=== PATIENT | female | born 1950 | race Caucasian/White ===

== ENCOUNTER 2016-10-03 16:30 | Emergency (ER) | payer OTHER ==
[~2016-10-03] VITALS: Ht 167.6 cm; Wt 113.4 kg
[2016-10-03 18:00] VITALS: BP 133/90
[2016-10-03] MEDS ORDERED: HYDROmorphone HCL 2 MG/ML VL IM ONE (19:30)
[2016-10-03] MEDS ORDERED: ONDANSETRON HCL 4 MG/2 ML VIAL IM ONE (19:30)
== END 2016-10-03 20:32 | disposition home or self-care (01) ==
LOC: EDBD 16:30 → ER 16:38
DX: M54.16 Radiculopathy, lumbar region (principal); M54.30 Sciatica, unspecified side; J45.909 Unspecified asthma, uncomplicated; I10 Essential (primary) hypertension
CPT/HCPCS: 96372; 99284; J1170; J2405

== ENCOUNTER 2016-11-13 14:20 | Emergency (ER) | payer OTHER ==
[~2016-11-13] VITALS: Ht 165.1 cm; Wt 98.7 kg
[2016-11-13 15:23] LABS: Basophils # (auto) 0 uL; Basophils % (auto) 0.8 % (0.0-2.0); CONDITION Y; Eosinophils # (auto) 0 uL; Eosinophils % (auto) 0.3 % (0.0-7.0); Hematocrit 36.4 % (36.0-46.0); Hemoglobin 12.7 g/dL (12.2-16.2); Lymphocytes # (auto) 1.4 uL; Lymphocytes % (auto) 35.1 % (10.0-50.0); Mean Corpuscular Hemoglobin 30.7 pg (28.0-32.0); Mean Corpuscular Hgb Conc. 34.7 g/dL (32.0-36.0); Mean Corpuscular Volume 88.3 fL (80.0-100.0); Mean Platelet Volume 6.8 fL (7.4-10.4); Monocytes # (auto) 0.3 uL; Neutrophils # (auto) 2.2 uL; Neutrophils % (auto) 56.8 % (37.0-80.0); Platelet Count (auto) 228 10^3/uL (140-450); Red Cell Distribution Width 14.6 % (11.6-16.0)
[2016-11-13 15:42] LABS: Albumin 3.4 g/dL (3.4-5.0); Alkaline Phosphatase 134 U/L (45-117); Anion Gap 9 (5-15); Aspartate Aminotransferase 11 U/L (15-37); BUN/Creatinine Ratio 23.6; Bilirubin, Total 0.2 mg/dL (0.2-1.0); Blood Urea Nitrogen 25 mg/dL (7-18); Carbon Dioxide 30 mmol/L (21-32); Chloride 101 mmol/L (98-107); GFR African American 67 mL/min; GFR Non-African American 55 mL/min; Glucose 116 mg/dL (74-106); Sodium 140 mmol/L (136-145); Total Protein 7.3 g/dL (6.4-8.2)
[2016-11-13 19:48] VITALS: BP 119/82
[2016-11-13] MEDS ORDERED: SODIUM CHLORIDE 0.9% 1,000 ML IV ONE (20:15)
[2016-11-13] MEDS ORDERED: ONDANSETRON HCL 4 MG/2 ML VIAL IV ONE (20:15)
[2016-11-13] MEDS ORDERED: MECLIZINE HCL 25 MG TAB PO ONE (22:30)
[2016-11-13 23:01] LABS: Urine RBC None Seen /hpf (0 - 4)
[2016-11-13 23:20] LABS: Urine Bilirubin Negative (Negative); Urine Blood Negative /uL (Negative); Urine Color Yellow (Yellow); Urine Glucose Normal (Normal); Urine Ketone TRACE (Negative); Urine Nitrite Negative (Negative); Urine Squamous Epithelial Cell FEW /hpf (<5); Urine Urobilinogen Normal (Negative)
== END 2016-11-14 03:47 | disposition home or self-care (01) ==
LOC: EDBD 14:20 → ER 14:20
DX: R42 Dizziness and giddiness (principal); R51 Headache; J45.909 Unspecified asthma, uncomplicated; I10 Essential (primary) hypertension
CPT/HCPCS: 36415; 70450; 80053; 81001; 84484; 85025; 93005; 96361; 96374; 99285; J2405; J7030; J8597

== ENCOUNTER 2017-01-23 15:40 | Inpatient (IN) | payer OTHER ==
[~2017-01-23] VITALS: Ht 162.6 cm; Wt 139.6 kg
[2017-01-23] MEDS ORDERED: SODIUM CHLORIDE 0.9% 1,000 ML IV ONE (16:37)
[2017-01-23] MEDS ORDERED: ASPirin 81 mg TAB PO ONE (16:45)
[2017-01-23] MEDS ORDERED: PROMETHAZINE HCL 25 MG/ML 1ML IV ONE (16:45)
[2017-01-23 17:00] LABS: Basophils # (auto) 0 uL; Basophils % (auto) 0.7 % (0.0-2.0); Eosinophils # (auto) 0 uL; Eosinophils % (auto) 0.3 % (0.0-7.0); Hemoglobin 12.3 g/dL (12.2-16.2); Lymphocytes # (auto) 2.1 uL; Lymphocytes % (auto) 34.2 % (10.0-50.0); Mean Corpuscular Hemoglobin 30.7 pg (28.0-32.0); Mean Corpuscular Hgb Conc. 34.2 g/dL (32.0-36.0); Mean Corpuscular Volume 89.8 fL (80.0-100.0); Mean Platelet Volume 6.7 fL (6.9-10.8); Monocytes # (auto) 0.4 uL; Monocytes % (auto) 6.5 % (0.0-12.0); Neutrophils # (auto) 3.5 uL; Neutrophils % (auto) 58.3 % (37.0-80.0); Nucleated Red Blood Cells % 0.1 %; Platelet Count (auto) 205 10^3/uL (140-450); Red Cell Distribution Width 14.6 % (11.8-14.3); White Blood Cell 6.1 10^3/uL (4.4-10.8)
[2017-01-23 17:07] LABS: Albumin 3.2 g/dL (3.4-5.0); Alkaline Phosphatase 146 U/L (45-117); Anion Gap 8 (5-15); Aspartate Aminotransferase 10 U/L (15-37); BUN/Creatinine Ratio 20.2; Bilirubin, Total 0.5 mg/dL (0.2-1.0); Blood Urea Nitrogen 18 mg/dL (7-18); Calcium 8.8 mg/dL (8.5-10.1); Carbon Dioxide 28 mmol/L (21-32); Chloride 101 mmol/L (98-107); GFR African American 82 mL/min; GFR Non-African American 67 mL/min; Glucose 88 mg/dL (74-106); Potassium 3.3 mmol/L (3.5-5.1); Sodium 137 mmol/L (136-145); Total Protein 7.5 g/dL (6.4-8.2)
[2017-01-23 17:28] LABS: B-Type Natriuretic Peptide 1.63 pg/mL (0-100)
[2017-01-23] MEDS ORDERED: cefTRIAXone 1GM/50ML D5W 50 ML IV ONE (18:00)
[2017-01-23] MEDS ORDERED: POTASSIUM CHL 10% (20 MEQ/15ML) 15ml ORAL SOLN PO ONE (18:00)
[2017-01-23] MEDS: MORPHINE SULF INJ 2 MG/ML SYRINGE 1ML IV PRN ×3 (18:27→22:36)
[2017-01-23] MEDS ORDERED: NITROGLYCERIN 0.4 MG SL TAB SL PRN (20:45)
[2017-01-23] MEDS ORDERED: MECLIZINE HCL 25 MG TAB PO PRN (20:45)
[2017-01-23] MEDS: SODIUM CHLORIDE 0.9% 1,000 ML IV SCH (21:06)
[2017-01-23] MEDS: clonazePAM 0.5 MG TAB PO SCH (21:20)
[2017-01-23] MEDS: ATORVASTATIN 20 MG TAB PO SCH (21:20)
[2017-01-23] MEDS: VENLAFAXINE HCL 37.5MG TABLET PO SCH (21:20)
[2017-01-23] MEDS: traZODone HCL 50 MG TAB PO SCH (21:20)
[2017-01-23] MEDS: GABAPENTIN 300 MG CAP PO SCH (21:20)
[2017-01-24] MEDS: clonazePAM 0.5 MG TAB PO SCH ×3 (06:14→21:49)
[2017-01-24] MEDS: LEVOTHYROXINE SODIUM 50 MCG TAB PO SCH (06:14)
[2017-01-24] MEDS: GABAPENTIN 300 MG CAP PO SCH ×3 (06:14→21:49)
[2017-01-24 06:41] LABS: Basophils # (auto) 0 uL; Basophils % (auto) 0.7 % (0.0-2.0); Eosinophils # (auto) 0 uL; Eosinophils % (auto) 0.7 % (0.0-7.0); Hematocrit 34.3 % (36.0-46.0); Hemoglobin 11.7 g/dL (12.2-16.2); Lymphocytes # (auto) 1.6 uL; Lymphocytes % (auto) 33.9 % (10.0-50.0); Mean Corpuscular Hemoglobin 30.6 pg (28.0-32.0); Mean Corpuscular Volume 90.1 fL (80.0-100.0); Mean Platelet Volume 6.6 fL (6.9-10.8); Monocytes # (auto) 0.4 uL; Monocytes % (auto) 8.5 % (0.0-12.0); Neutrophils # (auto) 2.7 uL; Neutrophils % (auto) 56.2 % (37.0-80.0); Nucleated Red Blood Cells % 0.1 %; Platelet Count (auto) 197 10^3/uL (140-450); White Blood Cell 4.8 10^3/uL (4.4-10.8)
[2017-01-24] MEDS: MORPHINE SULF INJ 2 MG/ML SYRINGE 1ML IV PRN (07:13)
[2017-01-24] MEDS: cefTRIAXone 1GM/50ML D5W 50 ML IV SCH (07:39)
[2017-01-24] MEDS: SODIUM CHLORIDE 0.9% 1,000 ML IV SCH ×2 (07:39→21:51)
[2017-01-24 07:41] LABS: Albumin 2.9 g/dL (3.4-5.0); Alkaline Phosphatase 135 U/L (45-117); Anion Gap 10 (5-15); Aspartate Aminotransferase 9 U/L (15-37); BUN/Creatinine Ratio 19.1; Bilirubin, Total 0.5 mg/dL (0.2-1.0); Blood Urea Nitrogen 17 mg/dL (7-18); Calcium 8.5 mg/dL (8.5-10.1); Carbon Dioxide 26 mmol/L (21-32); Chloride 101 mmol/L (98-107); Cholesterol 234 mg/dL (< 200); GFR African American 82 mL/min; GFR Non-African American 67 mL/min; Glucose 96 mg/dL (74-106); HDL Cholesterol 90 mg/dL (40-59); LDL Cholesterol 137 mg/dL (< 100); Potassium 4.2 mmol/L (3.5-5.1); Sodium 137 mmol/L (136-145); Total Protein 6.9 g/dL (6.4-8.2); Triglycerides 53 mg/dL (< 150)
[2017-01-24 10:00] VITALS: BP 94/69
[2017-01-24] MEDS: HCTZ 25 MG TAB PO SCH (10:00)
[2017-01-24] MEDS: traZODone HCL 50 MG TAB PO SCH ×2 (10:00→21:48)
[2017-01-24] MEDS: amLODIPine BESYLATE 5 MG TAB PO SCH (10:00)
[2017-01-24] MEDS: PANTOPRAZOLE 40 MG/10 ML VIAL IV SCH (11:17)
[2017-01-24] MEDS: ENOXAPARIN SOD 40 MG/0.4 ML SYRINGE SC SCH (11:17)
[2017-01-24] MEDS: ASPirin 81 mg TAB PO SCH (11:17)
[2017-01-24] MEDS: AZITHROMYCIN 500MG/D5W 250ML 250 ML IV SCH (11:42)
[2017-01-24] MEDS: HYDROcodone-ACET 10/325MG TAB PO PRN ×2 (12:00→18:44)
[2017-01-24 13:00] VITALS: BP 145/59
[2017-01-24] MEDS: VENLAFAXINE HCL 37.5MG TABLET PO SCH ×2 (15:33→21:50)
[2017-01-24 17:01] VITALS: BP 98/64
[2017-01-24 19:40] VITALS: BP 104/69
[2017-01-24] MEDS: ATORVASTATIN 20 MG TAB PO SCH (21:49)
[2017-01-24 22:00] VITALS: BP 104/69
[2017-01-25] MEDS: MORPHINE SULF INJ 2 MG/ML SYRINGE 1ML IV PRN (00:14)
[2017-01-25 05:00] VITALS: BP 96/61
[2017-01-25] MEDS: LEVOTHYROXINE SODIUM 50 MCG TAB PO SCH (06:34)
[2017-01-25] MEDS: clonazePAM 0.5 MG TAB PO SCH ×3 (06:35→21:34)
[2017-01-25] MEDS: GABAPENTIN 300 MG CAP PO SCH ×3 (06:35→21:33)
[2017-01-25 08:00] VITALS: BP 99/64
[2017-01-25] MEDS: cefTRIAXone 1GM/50ML D5W 50 ML IV SCH (09:28)
[2017-01-25] MEDS: PANTOPRAZOLE 40 MG/10 ML VIAL IV SCH (09:28)
[2017-01-25] MEDS: ASPirin 81 mg TAB PO SCH (09:29)
[2017-01-25] MEDS: VENLAFAXINE HCL 37.5MG TABLET PO SCH ×2 (09:29→21:32)
[2017-01-25] MEDS: traZODone HCL 50 MG TAB PO SCH ×2 (09:29→21:33)
[2017-01-25] MEDS: HCTZ 25 MG TAB PO SCH (09:29)
[2017-01-25] MEDS: ENOXAPARIN SOD 40 MG/0.4 ML SYRINGE SC SCH (09:29)
[2017-01-25] MEDS: AZITHROMYCIN 500MG/D5W 250ML 250 ML IV SCH (09:30)
[2017-01-25] MEDS: amLODIPine BESYLATE 5 MG TAB PO SCH (09:30)
[2017-01-25] MEDS: SODIUM CHLORIDE 0.9% 1,000 ML IV SCH (10:11)
[2017-01-25] MEDS ORDERED: MECL-87 PO (11:27)
[2017-01-25] MEDS ORDERED: AMLO5TAB2 PO (11:27)
[2017-01-25] MEDS ORDERED: ARIP2TAB PO (11:27)
[2017-01-25] MEDS ORDERED: GABA-497 PO (11:27)
[2017-01-25] MEDS ORDERED: [UNRECOGNIZED DRUG - CODE] PO (11:27)
[2017-01-25] MEDS ORDERED: CLON05T PO (11:27)
[2017-01-25] MEDS ORDERED: HYDR25TA4 PO (11:27)
[2017-01-25] MEDS ORDERED: LACT10SO3 PO (11:27)
[2017-01-25] MEDS ORDERED: LEVO50TA7 PO (11:27)
[2017-01-25] MEDS ORDERED: VENL75TA PO (11:27)
[2017-01-25 13:00] VITALS: BP 123/54
[2017-01-25] MEDS: HYDROcodone-ACET 10/325MG TAB PO PRN (15:42)
[2017-01-25 16:09] LABS: Allen Test Yes; Base Excess 2.6 mmol/L (-2.0-2.0); Blood 02Sat 85.3 % (96-100); Blood COHb 0.7 % (0.5-1.5); Blood MetHb 0.3 % (0.0-1.5); HCO3 28.5 mmol/L (22-26.0); HHb 14.6 % (0.0-5.0); MODE ROOM AIR; O2Hb 84.4 % (94.0-97.0); PCO2 49.2 mmHg (35.0-45.0); PCO2(T) 49.2 mmHg (35.0-45.0); PO2 54.3 mmHg (80.0-100.0); PO2(T) 54.3 mmHg (80.0-100.0); Room 0296T; Sample Type Arterial; pH 7.381 (7.350-7.450)
[2017-01-25 17:00] VITALS: BP 120/55
[2017-01-25 21:25] VITALS: BP 125/57
[2017-01-25] MEDS: ATORVASTATIN 20 MG TAB PO SCH (21:32)
[2017-01-26] MEDS: SODIUM CHLORIDE 0.9% 1,000 ML IV SCH ×3 (00:51→23:41)
[2017-01-26 05:51] VITALS: BP 118/74
[2017-01-26] MEDS: GABAPENTIN 300 MG CAP PO SCH ×3 (06:03→22:09)
[2017-01-26] MEDS: LEVOTHYROXINE SODIUM 50 MCG TAB PO SCH (06:04)
[2017-01-26] MEDS: clonazePAM 0.5 MG TAB PO SCH ×3 (06:04→22:09)
[2017-01-26 07:35] VITALS: BP 102/63
[2017-01-26] MEDS: HYDROcodone-ACET 10/325MG TAB PO PRN ×3 (07:36→18:39)
[2017-01-26 08:00] VITALS: BP 102/63
[2017-01-26] MEDS: cefTRIAXone 1GM/50ML D5W 50 ML IV SCH (08:51)
[2017-01-26] MEDS: amLODIPine BESYLATE 5 MG TAB PO SCH (10:00)
[2017-01-26] MEDS: traZODone HCL 50 MG TAB PO SCH ×2 (10:13→22:08)
[2017-01-26] MEDS: ENOXAPARIN SOD 40 MG/0.4 ML SYRINGE SC SCH (10:13)
[2017-01-26] MEDS: PANTOPRAZOLE 40 MG/10 ML VIAL IV SCH (10:13)
[2017-01-26] MEDS: AZITHROMYCIN 500MG/D5W 250ML 250 ML IV SCH (10:13)
[2017-01-26] MEDS: ASPirin 81 mg TAB PO SCH (10:13)
[2017-01-26] MEDS: HCTZ 25 MG TAB PO SCH (10:14)
[2017-01-26] MEDS: VENLAFAXINE HCL 37.5MG TABLET PO SCH ×2 (10:14→22:09)
[2017-01-26 12:30] VITALS: BP 98/62
[2017-01-26] MEDS ORDERED: LACTULOSE 20Gm/30ML SOLN PO ONE (15:30)
[2017-01-26] MEDS ORDERED: LACTULOSE 20Gm/30ML SOLN PO PRN (15:30)
[2017-01-26 16:56] VITALS: BP 109/71
[2017-01-26] MEDS: ATORVASTATIN 20 MG TAB PO SCH (22:09)
[2017-01-26 22:16] VITALS: BP 100/65
[2017-01-27 04:56] VITALS: BP 125/72
[2017-01-27] MEDS: GABAPENTIN 300 MG CAP PO SCH ×2 (06:38→13:25)
[2017-01-27] MEDS: clonazePAM 0.5 MG TAB PO SCH ×2 (06:38→13:24)
[2017-01-27] MEDS: LEVOTHYROXINE SODIUM 50 MCG TAB PO SCH (06:38)
[2017-01-27] MEDS: HYDROcodone-ACET 10/325MG TAB PO PRN ×2 (07:41→13:24)
[2017-01-27 08:00] VITALS: BP 121/79
[2017-01-27 08:13] VITALS: BP 121/79
[2017-01-27] MEDS: cefTRIAXone 1GM/50ML D5W 50 ML IV SCH (09:00)
[2017-01-27 09:25] LABS: Base Excess 1.9 mmol/L (-2.0-2.0); Blood 02Sat 86.2 % (96-100); Blood COHb 0.3 % (0.5-1.5); Blood MetHb 0.5 % (0.0-1.5); HCO3 28.1 mmol/L (22-26.0); HHb 13.7 % (0.0-5.0); MODE ROOM AIR; O2Hb 85.5 % (94.0-97.0); PCO2 51.9 mmHg (35.0-45.0); PCO2(T) 51.9 mmHg (35.0-45.0); PO2 56.9 mmHg (80.0-100.0); PO2(T) 56.9 mmHg (80.0-100.0); Room 0296T; Sample Type Arterial; pH 7.352 (7.350-7.450)
[2017-01-27] MEDS: ENOXAPARIN SOD 40 MG/0.4 ML SYRINGE SC SCH (10:05)
[2017-01-27] MEDS: ASPirin 81 mg TAB PO SCH (10:05)
[2017-01-27] MEDS: PANTOPRAZOLE 40 MG/10 ML VIAL IV SCH (10:05)
[2017-01-27] MEDS: AZITHROMYCIN 500MG/D5W 250ML 250 ML IV SCH (10:05)
[2017-01-27] MEDS: traZODone HCL 50 MG TAB PO SCH (10:05)
[2017-01-27] MEDS: amLODIPine BESYLATE 5 MG TAB PO SCH (10:06)
[2017-01-27] MEDS: VENLAFAXINE HCL 37.5MG TABLET PO SCH (10:06)
[2017-01-27] MEDS: HCTZ 25 MG TAB PO SCH (10:06)
[2017-01-27 12:12] VITALS: BP 109/66
== END 2017-01-27 15:50 | disposition home or self-care (01) | DRG 189 ==
LOC: ER 15:40 → EDUNIT# 15:40 → EDBD 15:40 → TELE 15:41 → TELE-WESTW 01-24 08:41
PROVIDERS: ADMIT Family Medicine; ATTEND Internal Medicine Pulmonary Disease
DX: J96.00 Acute respiratory failure, unspecified whether with hypoxia or hypercapnia (principal); J18.1 Lobar pneumonia, unspecified organism; E44.0 Moderate protein-calorie malnutrition; J44.0 Chronic obstructive pulmonary disease with (acute) lower respiratory infection; Z68.43 Body mass index [BMI] 50.0-59.9, adult; R07.89 Other chest pain; I11.9 Hypertensive heart disease without heart failure; E87.6 Hypokalemia; E66.9 Obesity, unspecified; F41.9 Anxiety disorder, unspecified; Z79.899 Other long term (current) drug therapy
CPT/HCPCS: 36415; 36600; 71010; 71020; 80053; 80061; 82805; 83735; 83880; 84443; 84484; 85025; 85379; 87040; 93005; 94761; 96361; 96365; 96375; C9113; J0696

== ENCOUNTER 2018-06-15 08:50 | Emergency (ER) | payer OTHER ==
[~2018-06-15] VITALS: Ht 165.1 cm; Wt 117.9 kg
[~2018-06-15 08:50] MED LIST: AMLO5TAB13 PO; ARIP2TAB PO; CLON05T PO; GABA300C10 PO; HYDR25TA4 PO; LACT10SO3 PO; LEVO50TA7 PO; MECL-87 PO; VENL75TA PO; [UNRECOGNIZED DRUG - CODE] PO
[2018-06-15] MEDS ORDERED: AMLO10TA12 PO (09:00)
[2018-06-15] MEDS ORDERED: ATOR40TA52 PO (09:01)
[2018-06-15] MEDS ORDERED: HYDR-4683 PO (09:01)
[2018-06-15 11:18] LABS: Basophils # (auto) 0 uL; Basophils % (auto) 0.9 % (0.0-2.0); Eosinophils # (auto) 0 uL; Eosinophils % (auto) 0.6 % (0.0-7.0); Hematocrit 40.5 % (36.0-46.0); Hemoglobin 13.4 g/dL (12.2-16.2); Lymphocytes # (auto) 1.4 uL; Lymphocytes % (auto) 25.3 % (10.0-50.0); Mean Corpuscular Hemoglobin 30.3 pg (28.0-32.0); Mean Corpuscular Hgb Conc. 33.1 g/dL (32.0-36.0); Mean Corpuscular Volume 91.7 fL (80.0-100.0); Monocytes # (auto) 0.4 uL; Monocytes % (auto) 7.4 % (0.0-12.0); Neutrophils # (auto) 3.5 uL; Neutrophils % (auto) 65.8 % (37.0-80.0); Nucleated Red Blood Cells % 0.1 %; Platelet Count (auto) 191 10^3/uL (140-450); Red Blood Cells 4.42 10^6/uL (4.0-5.20); Red Cell Distribution Width 14.5 % (11.8-14.3); White Blood Cell 5.4 10^3/uL (4.4-10.8)
[2018-06-15 11:51] LABS: Alanine Aminotransferase 20 U/L (13-56); Albumin 3.6 g/dL (3.4-5.0); Anion Gap 5 (5-15); Aspartate Aminotransferase 12 U/L (15-37); BUN/Creatinine Ratio 14.6; Blood Urea Nitrogen 14 mg/dL (7-18); Calcium 9.4 mg/dL (8.5-10.1); Carbon Dioxide 29 mmol/L (21-32); Chloride 107 mmol/L (98-107); GFR African American 75 mL/min; GFR Non-African American 62 mL/min; Glucose 97 mg/dL (74-106); Potassium 4.2 mmol/L (3.5-5.1); Sodium 141 mmol/L (136-145)
[2018-06-15 11:55] LABS: Alkaline Phosphatase 126 U/L (45-117); Bilirubin, Total 0.3 mg/dL (0.2-1.0); Total Protein 7.5 g/dL (6.4-8.2)
[2018-06-15] MEDS ORDERED: clonazePAM 0.5 MG TAB PO ONE (15:00)
[2018-06-15 15:30] VITALS: BP 147/100
== END 2018-06-15 16:10 | disposition home or self-care (01) ==
LOC: ER 08:50
DX: F13.239 Sedative, hypnotic or anxiolytic dependence with withdrawal, unspecified (principal); J45.909 Unspecified asthma, uncomplicated; I10 Essential (primary) hypertension; F41.9 Anxiety disorder, unspecified; E78.5 Hyperlipidemia, unspecified; Z90.710 Acquired absence of both cervix and uterus
CPT/HCPCS: 36415; 71046; 80053; 84484; 85025; 93005

== ENCOUNTER 2018-11-11 12:04 | Emergency (ER) | payer OTHER ==
[~2018-11-11] VITALS: Ht 162.6 cm; Wt 104.3 kg
[~2018-11-11 12:04] MED LIST changes: +AMLO10TA13 PO; -AMLO5TAB13 PO; -ARIP2TAB PO; +ATOR40TA52 PO; +CARB300C9 PO; +CLON0.5T11 PO; -CLON05T PO; -GABA300C10 PO; +HYDR-4833 PO; -HYDR25TA4 PO; -[UNRECOGNIZED DRUG - CODE] PO
[2018-11-11] MEDS ORDERED: ALBUTEROL SULF 2.5 MG/0.5ML(0.5%) NEB SOLN HHN ONE (12:30)
[2018-11-11] MEDS ORDERED: methylPREDNISolone SOD SUCC 125 MG/2 ML VL IV ONE (12:30)
[2018-11-11] MEDS ORDERED: IPRATROPIUM BROM 0.5 MG/2.5ML INH SOL HHN ONE (12:30)
[2018-11-11 13:08] LABS: Basophils # (auto) 0 uL; Basophils % (auto) 1.1 % (0.0-2.0); Eosinophils # (auto) 0.1 uL; Eosinophils % (auto) 1.4 % (0.0-7.0); Hemoglobin 13.1 g/dL (12.2-16.2); Lymphocytes # (auto) 1.4 uL; Lymphocytes % (auto) 34.6 % (10.0-50.0); Mean Corpuscular Hgb Conc. 33.6 g/dL (32.0-36.0); Mean Corpuscular Volume 89.3 fL (80.0-100.0); Monocytes # (auto) 0.3 uL; Monocytes % (auto) 6.1 % (0.0-12.0); Neutrophils # (auto) 2.3 uL; Neutrophils % (auto) 56.8 % (37.0-80.0); Nucleated Red Blood Cells % 0.1 %; Platelet Count (auto) 175 10^3/uL (140-450); Red Blood Cells 4.37 10^6/uL (4.0-5.20); Red Cell Distribution Width 14.7 % (11.8-14.3); White Blood Cell 4.1 10^3/uL (4.4-10.8)
[2018-11-11 13:45] LABS: Alanine Aminotransferase 19 U/L (13-56); Albumin 3.7 g/dL (3.4-5.0); Anion Gap 9 (5-15); Aspartate Aminotransferase 14 U/L (15-37); BUN/Creatinine Ratio 18.8; Blood Urea Nitrogen 18 mg/dL (7-18); Calcium 8.9 mg/dL (8.5-10.1); Carbon Dioxide 25 mmol/L (21-32); Chloride 111 mmol/L (98-107); GFR African American 75 mL/min; GFR Non-African American 62 mL/min; Glucose 96 mg/dL (74-106); Potassium 3.6 mmol/L (3.5-5.1); Sodium 145 mmol/L (136-145)
[2018-11-11 13:49] LABS: Alkaline Phosphatase 118 U/L (45-117); Bilirubin, Total 0.4 mg/dL (0.2-1.0); Total Protein 7.6 g/dL (6.4-8.2)
[2018-11-11] MEDS ORDERED: methylPREDNISolone SOD SUCC 125 MG/2 ML VL IM ONE (15:45)
[2018-11-11 16:12] VITALS: BP 110/69
== END 2018-11-11 16:15 | disposition home or self-care (01) ==
LOC: EDBD 12:04 → ER 12:04 → EDUNIT# 12:04 → ER 16:15
DX: J20.9 Acute bronchitis, unspecified (principal); J45.909 Unspecified asthma, uncomplicated; E78.00 Pure hypercholesterolemia, unspecified; I10 Essential (primary) hypertension; Z90.710 Acquired absence of both cervix and uterus; Z79.899 Other long term (current) drug therapy
CPT/HCPCS: 36415; 71046; 80053; 83605; 83880; 84484; 85025; 87040; 93005; 94644; 94761; 96372; 99285; J2930; J7611; J7644

== ENCOUNTER 2021-07-29 00:03 | Emergency (ER) | payer OTHER ==
[~2021-07-29] VITALS: Ht 165.1 cm; Wt 108.4 kg
[~2021-07-29 00:03] MED LIST changes: +AMLO-496 PO; -AMLO10TA13 PO; -CLON0.5T11 PO; +CLON0.5T3 PO; -MECL-87 PO; +MECL25TA18 PO; +VENL1TAB99 PO; -VENL75TA PO
[2021-07-29 03:51] VITALS: BP 158/93
[2021-07-29 04:45] LABS: Urine Bacteria FEW /hpf (None Seen); Urine Blood 2+ /uL (Negative); Urine Specific Gravity 1.009 (1.001-1.035); Urine WBC 2 /hpf (0 - 5)
== END 2021-07-29 07:44 | disposition home or self-care (01) ==
LOC: ER 00:05
DX: N99.89 Other postprocedural complications and disorders of genitourinary system (principal); T83.098A Other mechanical complication of other urinary catheter, initial encounter; R30.0 Dysuria; R31.9 Hematuria, unspecified; I10 Essential (primary) hypertension; E78.5 Hyperlipidemia, unspecified; J45.909 Unspecified asthma, uncomplicated; Z79.899 Other long term (current) drug therapy
CPT/HCPCS: 81001; 87086; 87088; 87186

== ENCOUNTER 2022-08-02 20:09 | Inpatient (IN) | payer OTHER ==
[~2022-08-02] VITALS: Ht 162.6 cm; Wt 102.8 kg
[2022-08-02 21:14] LABS: Basophils # (auto) 0.1 10 ^3/uL (0-0.2); Eosinophils # (auto) 0 10 ^3/uL (0-0.8); Eosinophils % (auto) 0.7 % (0.0-7.0); Hematocrit 26.2 % (36.0-46.0); Hemoglobin 8.8 g/dL (12.2-16.2); Lymphocytes # (auto) 1.2 10 ^3/uL (0.4-5.4); Lymphocytes % (auto) 24.1 % (10.0-50.0); Mean Corpuscular Hgb Conc. 33.8 g/dL (32.0-36.0); Mean Corpuscular Volume 85.8 fL (80.0-100.0); Monocytes # (auto) 0.4 10 ^3/uL (0-1.3); Neutrophils # (auto) 3.4 10 ^3/uL (1.6-8.6); Neutrophils % (auto) 67.2 % (37.0-80.0); Nucleated Red Blood Cells % 0.2 %; Red Blood Cells 3.05 10^6/uL (4.0-5.20); Red Cell Distribution Width 15.6 % (11.8-14.3); White Blood Cell 5.1 10^3/uL (4.4-10.8)
[2022-08-02 21:33] LABS: Albumin 3.9 g/dL (3.4-5.0); Calcium 9.8 mg/dL (8.5-10.1); Potassium 3.9 mmol/L (3.5-5.1)
[2022-08-02 21:37] LABS: BUN/Creatinine Ratio 8.8 (10.0-20.0); Bilirubin, Total 0.4 mg/dL (0.2-1.0); Total Protein 7.6 g/dL (6.4-8.2)
[2022-08-03 09:52] LABS: Urine Bacteria NONE SEEN /hpf (None Seen); Urine Blood Negative /uL (Negative); Urine Hyaline Cast FEW /lpf (0 - 2); Urine Specific Gravity 1.014 (1.001-1.035); Urine WBC 2 /hpf (0 - 5)
[2022-08-03] MEDS ORDERED: ONDANSETRON HCL 4 MG/2 ML VIAL IV PRN (11:00)
[2022-08-03] MEDS ORDERED: POTASSIUM EFFERVESENT TAB 25 MEQ PO ONE (11:00)
[2022-08-03] MEDS ORDERED: DOCUSATE SOD 100 MG CAP PO PRN ×2 (11:00→11:15)
[2022-08-03] MEDS ORDERED: SODIUM CHLORIDE 0.9% 1,000 ML IV SCH (11:00)
[2022-08-03] MEDS ORDERED: MORPHINE SULFATE INJ 2 MG/ml SYRG IV PRN (11:00)
[2022-08-03 13:48] LABS: Creatinine, Urine 165 mg/dL (30.0-125.0); Sodium Urine 55 mmol/L (40-220)
[2022-08-03] MEDS ORDERED: clonazePAM 0.5 MG TAB PO SCH (14:00)
[2022-08-03] MEDS: SODIUM CHLORIDE 0.9% 1,000 ML IV SCH (18:02)
[2022-08-03] MEDS ORDERED: MONT-8 PO (20:14)
[2022-08-03] MEDS ORDERED: OMEP-411 PO (20:14)
[2022-08-03] MEDS ORDERED: FURO40TA4 PO (20:14)
[2022-08-03] MEDS: ONDANSETRON HCL 4 MG/2 ML VIAL IV PRN (20:44)
[2022-08-03] MEDS: ATORVASTATIN 20 MG TAB PO SCH (21:24)
[2022-08-03 22:00] VITALS: BP 142/83
[2022-08-04] MEDS: SODIUM CHLORIDE 0.9% 1,000 ML IV SCH ×2 (03:55→20:35)
[2022-08-04 05:00] VITALS: BP 140/81
[2022-08-04] MEDS: LEVOTHYROXINE SODIUM 50 MCG TAB PO SCH (05:28)
[2022-08-04] MEDS: clonazePAM 0.5 MG TAB PO SCH ×2 (05:30→05:50)
[2022-08-04 06:16] LABS: Potassium 4.1 mmol/L (3.5-5.1)
[2022-08-04 06:19] LABS: Basophils # (auto) 0 10 ^3/uL (0-0.2); Eosinophils # (auto) 0.1 10 ^3/uL (0-0.8); Mean Corpuscular Volume 89.5 fL (80.0-100.0); Monocytes # (auto) 0.4 10 ^3/uL (0-1.3); White Blood Cell 4.4 10^3/uL (4.4-10.8)
[2022-08-04 06:21] LABS: Basophils % (auto) 0.3 % (0.0-2.0); Eosinophils % (auto) 2.5 % (0.0-7.0); Hematocrit 23.8 % (36.0-46.0); Hemoglobin 7.9 g/dL (12.2-16.2); Lymphocytes # (auto) 1.2 10 ^3/uL (0.4-5.4); Mean Corpuscular Hemoglobin 29.8 pg (28.0-32.0); Mean Corpuscular Hgb Conc. 33.3 g/dL (32.0-36.0); Monocytes % (auto) 8.7 % (0.0-12.0); Neutrophils # (auto) 2.7 10 ^3/uL (1.6-8.6); Neutrophils % (auto) 60.5 % (37.0-80.0); Nucleated Red Blood Cells % 0.2 %; Red Blood Cells 2.66 10^6/uL (4.0-5.20); Red Cell Distribution Width 15.8 % (11.8-14.3)
[2022-08-04 06:26] LABS: Albumin 3.1 g/dL (3.4-5.0); BUN/Creatinine Ratio 8.9 (10.0-20.0); Bilirubin, Total 0.3 mg/dL (0.2-1.0); Calcium 8.8 mg/dL (8.5-10.1)
[2022-08-04 09:00] VITALS: BP 133/66
[2022-08-04] MEDS ORDERED: cefTRIAXone 1GM/50ML D5W 50 ML IV SCH (09:00)
[2022-08-04] MEDS: PANTOPRAZOLE 40 MG/10 ML VIAL INJ IV SCH (09:11)
[2022-08-04] MEDS: ASPirin 81 mg TAB PO SCH (09:11)
[2022-08-04] MEDS: amLODIPine BESYLATE 5 MG TAB PO SCH (09:12)
[2022-08-04] MEDS ORDERED: ENOXAPARIN SOD 40 MG/0.4 ML SYRINGE SC SCH (10:00)
[2022-08-04 13:00] VITALS: BP 135/70
[2022-08-04 17:19] VITALS: BP 123/66
[2022-08-04 22:00] VITALS: BP 138/80
[2022-08-04] MEDS: ATORVASTATIN 20 MG TAB PO SCH (22:10)
[2022-08-05] MEDS: MORPHINE SULFATE INJ 2 MG/ml SYRG IV PRN ×5 (01:03→21:41)
[2022-08-05 05:00] VITALS: BP 149/80
[2022-08-05 05:40] LABS: Basophils # (auto) 0 10 ^3/uL (0-0.2); Hemoglobin 7.4 g/dL (12.2-16.2); Monocytes # (auto) 0.4 10 ^3/uL (0-1.3); Nucleated Red Blood Cells % 0.1 %; White Blood Cell 4.3 10^3/uL (4.4-10.8)
[2022-08-05 05:43] LABS: Basophils % (auto) 0.5 % (0.0-2.0); Eosinophils # (auto) 0.1 10 ^3/uL (0-0.8); Hematocrit 21.2 % (36.0-46.0); Lymphocytes # (auto) 1.4 10 ^3/uL (0.4-5.4); Lymphocytes % (auto) 33.2 % (10.0-50.0); Mean Corpuscular Hemoglobin 30.1 pg (28.0-32.0); Mean Corpuscular Hgb Conc. 34.6 g/dL (32.0-36.0); Mean Corpuscular Volume 86.8 fL (80.0-100.0); Monocytes % (auto) 10.1 % (0.0-12.0); Neutrophils # (auto) 2.3 10 ^3/uL (1.6-8.6); Neutrophils % (auto) 53.2 % (37.0-80.0); Red Blood Cells 2.45 10^6/uL (4.0-5.20); Red Cell Distribution Width 15.5 % (11.8-14.3)
[2022-08-05] MEDS: LEVOTHYROXINE SODIUM 50 MCG TAB PO SCH (06:36)
[2022-08-05 06:37] LABS: Albumin 3.1 g/dL (3.4-5.0); BUN/Creatinine Ratio 7.7 (10.0-20.0); Calcium 8.9 mg/dL (8.5-10.1)
[2022-08-05] MEDS: clonazePAM 0.5 MG TAB PO SCH (06:37)
[2022-08-05 06:53] LABS: Bilirubin, Total 0.3 mg/dL (0.2-1.0); Total Protein 5.9 g/dL (6.4-8.2)
[2022-08-05 09:00] VITALS: BP 144/81
[2022-08-05] MEDS: PANTOPRAZOLE 40 MG/10 ML VIAL INJ IV SCH (10:04)
[2022-08-05] MEDS: ASPirin 81 mg TAB PO SCH (10:04)
[2022-08-05] MEDS: ENOXAPARIN SOD 30 MG/0.3 ML SYRINGE SC SCH (10:05)
[2022-08-05] MEDS: amLODIPine BESYLATE 5 MG TAB PO SCH (10:05)
[2022-08-05] MEDS: SODIUM CHLORIDE 0.9% 1,000 ML IV SCH (12:57)
[2022-08-05 13:14] VITALS: BP 142/77
[2022-08-05 17:00] VITALS: BP 132/81
[2022-08-05] MEDS: ATORVASTATIN 20 MG TAB PO SCH (21:40)
[2022-08-05 22:00] VITALS: BP 121/76
[2022-08-06 05:00] VITALS: BP 129/75
[2022-08-06] MEDS: MORPHINE SULFATE INJ 2 MG/ml SYRG IV PRN ×2 (05:42→15:12)
[2022-08-06] MEDS: SODIUM CHLORIDE 0.9% 1,000 ML IV SCH ×2 (05:42→22:38)
[2022-08-06] MEDS: LEVOTHYROXINE SODIUM 50 MCG TAB PO SCH (06:40)
[2022-08-06] MEDS: clonazePAM 0.5 MG TAB PO SCH (06:41)
[2022-08-06 06:45] LABS: Eosinophils # (auto) 0.1 10 ^3/uL (0-0.8); Hemoglobin 7.4 g/dL (12.2-16.2); Lymphocytes # (auto) 1.1 10 ^3/uL (0.4-5.4); Mean Corpuscular Hemoglobin 29.6 pg (28.0-32.0); Monocytes # (auto) 0.4 10 ^3/uL (0-1.3); Neutrophils # (auto) 2.4 10 ^3/uL (1.6-8.6); Red Blood Cells 2.51 10^6/uL (4.0-5.20)
[2022-08-06 06:48] LABS: Basophils # (auto) 0 10 ^3/uL (0-0.2); Basophils % (auto) 0.7 % (0.0-2.0); Eosinophils % (auto) 3.3 % (0.0-7.0); Hematocrit 21.8 % (36.0-46.0); Lymphocytes % (auto) 26.2 % (10.0-50.0); Monocytes % (auto) 10.3 % (0.0-12.0); Neutrophils % (auto) 59.5 % (37.0-80.0); Nucleated Red Blood Cells % 0.1 %; Potassium 4.3 mmol/L (3.5-5.1); Red Cell Distribution Width 15.7 % (11.8-14.3); White Blood Cell 4.1 10^3/uL (4.4-10.8)
[2022-08-06 07:01] LABS: BUN/Creatinine Ratio 6.1 (10.0-20.0); Bilirubin, Total 0.4 mg/dL (0.2-1.0); Calcium 9.2 mg/dL (8.5-10.1)
[2022-08-06 09:00] VITALS: BP_SYST 101; BP_SYST 128; BP_DIAS 57; BP_DIAS 77
[2022-08-06] MEDS: PANTOPRAZOLE 40 MG/10 ML VIAL INJ IV SCH (09:43)
[2022-08-06] MEDS: ASPirin 81 mg TAB PO SCH (09:43)
[2022-08-06] MEDS: ENOXAPARIN SOD 30 MG/0.3 ML SYRINGE SC SCH (09:43)
[2022-08-06] MEDS: amLODIPine BESYLATE 5 MG TAB PO SCH (09:44)
[2022-08-06 13:00] VITALS: BP 132/66
[2022-08-06 17:00] VITALS: BP 143/71
[2022-08-06 17:19] LABS: % Iron Saturation 25.6 % (15-50)
[2022-08-06] MEDS ORDERED: ACETAMINOPHEN 325 MG TAB PO PRN (18:45)
[2022-08-06] MEDS: ATORVASTATIN 20 MG TAB PO SCH (20:44)
[2022-08-06] MEDS: HYDROcodone-ACET 5/325MG TAB PO PRN (20:48)
[2022-08-06 21:30] VITALS: BP 136/83
[2022-08-07 05:00] VITALS: BP 120/69
[2022-08-07 06:05] LABS: Eosinophils # (auto) 0.1 10 ^3/uL (0-0.8); Hemoglobin 7.2 g/dL (12.2-16.2); Lymphocytes # (auto) 1.2 10 ^3/uL (0.4-5.4); Potassium 4.2 mmol/L (3.5-5.1)
[2022-08-07 06:09] LABS: Basophils # (auto) 0 10 ^3/uL (0-0.2); Basophils % (auto) 0.5 % (0.0-2.0); Eosinophils % (auto) 2.7 % (0.0-7.0); Hematocrit 20.6 % (36.0-46.0); Lymphocytes % (auto) 29.6 % (10.0-50.0); Mean Corpuscular Hemoglobin 30.1 pg (28.0-32.0); Mean Corpuscular Hgb Conc. 34.9 g/dL (32.0-36.0); Mean Corpuscular Volume 86.2 fL (80.0-100.0); Monocytes # (auto) 0.4 10 ^3/uL (0-1.3); Monocytes % (auto) 10.1 % (0.0-12.0); Neutrophils # (auto) 2.4 10 ^3/uL (1.6-8.6); Neutrophils % (auto) 57.1 % (37.0-80.0); Nucleated Red Blood Cells % 0.1 %; Red Blood Cells 2.39 10^6/uL (4.0-5.20); White Blood Cell 4.2 10^3/uL (4.4-10.8)
[2022-08-07 06:10] LABS: BUN/Creatinine Ratio 7.3 (10.0-20.0)
[2022-08-07] MEDS: LEVOTHYROXINE SODIUM 50 MCG TAB PO SCH (06:23)
[2022-08-07] MEDS: HYDROcodone-ACET 5/325MG TAB PO PRN ×3 (06:23→20:19)
[2022-08-07] MEDS: clonazePAM 0.5 MG TAB PO SCH (06:24)
[2022-08-07 08:20] VITALS: BP 124/75
[2022-08-07] MEDS: PANTOPRAZOLE 40 MG/10 ML VIAL INJ IV SCH (09:30)
[2022-08-07] MEDS: ASPirin 81 mg TAB PO SCH (09:31)
[2022-08-07] MEDS: amLODIPine BESYLATE 5 MG TAB PO SCH (09:31)
[2022-08-07] MEDS: ENOXAPARIN SOD 30 MG/0.3 ML SYRINGE SC SCH (09:31)
[2022-08-07 13:13] VITALS: BP 126/63
[2022-08-07] MEDS: EPOETIN ALFA-EPBX 10,000 UNIT/1ML VIAL SC SCH (13:24)
[2022-08-07 16:56] VITALS: BP 141/79
[2022-08-07] MEDS: ATORVASTATIN 20 MG TAB PO SCH (20:19)
[2022-08-07] MEDS: ONDANSETRON HCL 4 MG/2 ML VIAL IV PRN (20:20)
[2022-08-07 22:00] VITALS: BP 114/73
[2022-08-08 05:12] VITALS: BP 131/75
[2022-08-08 05:57] LABS: Basophils # (auto) 0 10 ^3/uL (0-0.2); Basophils % (auto) 0.3 % (0.0-2.0); Eosinophils # (auto) 0.1 10 ^3/uL (0-0.8); Eosinophils % (auto) 2.3 % (0.0-7.0); Hematocrit 21.3 % (36.0-46.0); Hemoglobin 7.3 g/dL (12.2-16.2); Lymphocytes # (auto) 1.2 10 ^3/uL (0.4-5.4); Lymphocytes % (auto) 30.1 % (10.0-50.0); Mean Corpuscular Hemoglobin 29.5 pg (28.0-32.0); Mean Corpuscular Hgb Conc. 34.1 g/dL (32.0-36.0); Mean Corpuscular Volume 86.5 fL (80.0-100.0); Monocytes # (auto) 0.4 10 ^3/uL (0-1.3); Monocytes % (auto) 10.9 % (0.0-12.0); Neutrophils # (auto) 2.2 10 ^3/uL (1.6-8.6); Neutrophils % (auto) 56.4 % (37.0-80.0); Nucleated Red Blood Cells % 0.1 %; Red Blood Cells 2.46 10^6/uL (4.0-5.20); Red Cell Distribution Width 15.6 % (11.8-14.3); White Blood Cell 3.9 10^3/uL (4.4-10.8)
[2022-08-08 06:13] LABS: BUN/Creatinine Ratio 9.5 (10.0-20.0); Calcium 9.2 mg/dL (8.5-10.1); Potassium 4.1 mmol/L (3.5-5.1)
[2022-08-08] MEDS: clonazePAM 0.5 MG TAB PO SCH (06:26)
[2022-08-08] MEDS: ONDANSETRON HCL 4 MG/2 ML VIAL IV PRN ×3 (06:26→15:32)
[2022-08-08] MEDS: LEVOTHYROXINE SODIUM 50 MCG TAB PO SCH (06:26)
[2022-08-08] MEDS: ASPirin 81 mg TAB PO SCH (08:53)
[2022-08-08] MEDS: PANTOPRAZOLE 40 MG/10 ML VIAL INJ IV SCH (08:53)
[2022-08-08] MEDS: DOCUSATE SOD 100 MG CAP PO SCH ×2 (08:54→20:11)
[2022-08-08] MEDS: amLODIPine BESYLATE 5 MG TAB PO SCH (08:54)
[2022-08-08] MEDS: ENOXAPARIN SOD 30 MG/0.3 ML SYRINGE SC SCH (08:54)
[2022-08-08 09:00] VITALS: BP 96/54
[2022-08-08] MEDS: HYDROcodone-ACET 5/325MG TAB PO PRN ×3 (11:04→20:12)
[2022-08-08 16:42] VITALS: BP 131/71
[2022-08-08] MEDS: ATORVASTATIN 20 MG TAB PO SCH (20:11)
[2022-08-08 22:00] VITALS: BP 115/65
[2022-08-09 05:00] VITALS: BP 119/73
[2022-08-09] MEDS: LEVOTHYROXINE SODIUM 50 MCG TAB PO SCH (05:45)
[2022-08-09] MEDS: clonazePAM 0.5 MG TAB PO SCH (05:46)
[2022-08-09 09:00] VITALS: BP 119/76
[2022-08-09] MEDS: PANTOPRAZOLE 40 MG/10 ML VIAL INJ IV SCH (09:27)
[2022-08-09] MEDS: ENOXAPARIN SOD 30 MG/0.3 ML SYRINGE SC SCH (09:28)
[2022-08-09] MEDS: ASPirin 81 mg TAB PO SCH (09:29)
[2022-08-09] MEDS: amLODIPine BESYLATE 5 MG TAB PO SCH (09:29)
[2022-08-09] MEDS: DOCUSATE SOD 100 MG CAP PO SCH (09:29)
[2022-08-09] MEDS: EPOETIN ALFA-EPBX 10,000 UNIT/1ML VIAL SC SCH (10:00)
[2022-08-09] MEDS ORDERED: ONDA-144 PO (10:34)
[2022-08-09] MEDS ORDERED: HYDR-4902 PO (10:34)
[2022-08-09] MEDS ORDERED: DOCU-94 PO (10:34)
[2022-08-09 13:00] VITALS: BP 118/71
[2022-08-09] MEDS ORDERED: IRON SUCROSE COMPLEX 200 MG in SODIUM CHL 0.9% 100 ML IV SCH (15:00)
[2022-08-09] MEDS ORDERED: SODIUM FERR GLUC 62.5MG/5ML 125 MG in SODIUM CHL 0.9% 100 ML IV SCH (15:11)
== END 2022-08-09 15:17 | disposition home or self-care (01) | DRG 811 ==
LOC: EDSEX 20:09 → ER 20:09 → EDBD 20:09 → TELE 08-03 11:10 → TELE-WESTW 08-03 18:47
PROVIDERS: ADMIT Nurse Practitioner Family; ATTEND Internal Medicine Geriatric Medicine
DX: D50.9 Iron deficiency anemia, unspecified (principal); N17.0 Acute kidney failure with tubular necrosis; I13.0 Hypertensive heart and chronic kidney disease with heart failure and stage 1 through stage 4 chronic kidney disease, or unspecified chronic kidney disease; I50.32 Chronic diastolic (congestive) heart failure; E86.0 Dehydration; K80.20 Calculus of gallbladder without cholecystitis without obstruction; E78.5 Hyperlipidemia, unspecified; J45.909 Unspecified asthma, uncomplicated; N18.32 Chronic kidney disease, stage 3b; D63.1 Anemia in chronic kidney disease; E03.9 Hypothyroidism, unspecified; E66.01 Morbid (severe) obesity due to excess calories; N28.1 Cyst of kidney, acquired; R32 Unspecified urinary incontinence; Z86.73 Personal history of transient ischemic attack (TIA), and cerebral infarction without residual deficits; Z90.5 Acquired absence of kidney; Z90.710 Acquired absence of both cervix and uterus; E78.00 Pure hypercholesterolemia, unspecified; R19.7 Diarrhea, unspecified; E88.09 Other disorders of plasma-protein metabolism, not elsewhere classified; E86.9 Volume depletion, unspecified
CPT/HCPCS: 36415; 74176; 80048; 80053; 81001; 82570; 82728; 83540; 83550; 83690; 84100; 84300; 84484; 85025; 87086; 93005; 93306; 97110; 97116; 97163; 97530; C9113; G0378; J2405

== ENCOUNTER 2024-03-11 12:10 | Inpatient (IN) | payer OTHER ==
[~2024-03-11] VITALS: Ht 162.6 cm; Wt 96.7 kg
[~2024-03-11 12:10] MED LIST changes: -AMLO-496 PO; +AMLO1TAB23 PO; +B-CO-6 PO; +CARB200T4 PO; +CLON0.5T4 PO; +DOCU-94 PO; +FERR325T20 PO; +FLUT50SP31 EACHNOSTRI; +FURO40TA4 PO; -HYDR-4833 PO; +HYDR-4902 PO; -LACT10SO3 PO; +LOSA-534 PO; -MECL25TA18 PO; +MONT-8 PO; +OMEP-411 PO; +ONDA-144 PO; +OXYC325T14 PO; +PREG75CA PO
--- NOTE | 2024-03-11 12:18 | ED.PDOC ---
History of Present Illness HPI Comments 74-year-old female with PMHx Neuropathy, HTN, HLD, Thyroid Disease, Anxiety brought in by EMS presents with a chief complaint of abdominal pain x onset 0200 this morning with associated nausea. Patient states that her abdomen pain is localized to her right side, radiating to her back, rates pain a 10/10. Patient mentions that she has nausea, but no active vomiting episodes. Patient denies vomiting, diarrhea, fever, chills or SOB. PSHx Thyroidectomy, Left Nephrectomy. No other symptoms or modifying factors present at this time. Time Seen by MD: 12:14 Primary Care Provider: DR RAMIREZ Reviewed Notes: Nurses Notes, Medications, Allergies Allergies: Coded Allergies: NO KNOWN ALLERGIES (Unverified , 11/11/18) Home Meds Active Scripts Docusate Sodium (Colace) 100 Mg Cap, 1 CAP PO BID, #60 CAP 2 Refills Prov:JUAN DOUGLAS MD 08/09/22 Hydrocodone-Acetaminophen (Hydrocodone Bitartrate/AC 5-325 mg) 1 Tab Tab, 1 TAB PO Q6HP PRN, #30 TAB Prov:JUAN DOUGLAS MD 08/09/22 Ondansetron (Zofran) 4 Mg Tab, 4 MG PO Q4HP PRN, #30 TAB Prov:JUAN DOUGLAS MD 08/09/22 Reported Medications Furosemide (Furosemide) 40 Mg Tab, 1 TAB PO DAILY 08/03/22 Omeprazole ([facility]vs Omeprazole Odt) 20 Mg Tab, 1 TAB PO BID 08/03/22 Montelukast Sodium (MONTELUKAST SODIUM) 10 Mg Tab, 1 TAB PO DAILY 08/03/22 Atorvastatin Calcium (ATORVASTATIN CALCIUM) 40 Mg Tab, 1 TAB PO DAILY, #30 TAB 5 Refills 06/15/18 Amlodipine Besylate (Amlodipine Besylate) 10 Mg Tab, 1 TAB PO DAILY, #30 TAB 5 Refills 06/15/18 Levothyroxine Sodium (Levothyroxine Sodium) 50 Mcg Tab, 50 MCG PO QAM for 30 Days, MCG 01/25/17 Clonazepam (KlonoPIN TABLET) 0.5 Mg Tb, 1 TAB PO TID, #90 TAB 01/25/17 Carbamazepine (CARBAMAZEPINE ER) 300 Mg Cap, 200 MG PO BID, CAP 01/25/17 Venlafaxine Hydrochloride (Venlafaxine Hcl) 75 Mg Tab, 200 MG PO DAILY, TAB 01/25/17 Information Source: Patient Mode of Arrival: EMS Severity: Moderate Timing: Hours Duration: Since onset Prehospital treatment: Treatment (4mg Zofran ) Past Medical History PAST MEDICAL HISTORY: Asthma, CHF, High Lipids, HTN Surgical History: Hysterectomy TOOL ADJUSTER History: No Pertinent TOOL ADJUSTER History Family History Family History: Unknown Social History Smoker: Non-Smoker Alcohol: Denies ETOH Use Drugs: Denies Drug Use Lives In: Home Constitutional: denies: chills, diaphoresis, fatigue, fever, malaise, sweats, weakness, others EENTM: denies: blurred vision, double vision, ear bleeding, ear discharge, ear drainage, ear pain, ear ringing, eye pain, eye redness, hearing loss, mouth pain, mouth swelling, nasal discharge, nose bleeding, nose congestion, nose pain, photophobia, tearing, throat pain, throat swelling, voice changes, others Respiratory: denies: cough, hemoptysis, orthopnea, SOB at rest, shortness of breath, SOB with excertion, stridor, wheezing, others Cardiovascular: denies: chest pain, dizzy spells, diaphoresis, Dyspnea on exertion, edema, irregular heart beat, left arm pain, lightheadedness, palpitations, PND, syncope, others Gastrointestinal: reports: abdominal pain, nausea; denies: abdomen distended, blood streaked bowels, constipated, diarrhea, dysphagia, difficulty swallowing, hematemesis, melena, poor appetite, poor fluid intake, rectal bleeding, rectal pain, vomiting, others Genitourinary: denies: abnormal vagina bleeding, burning, dyspareunia, dysuria, flank pain, frequency, hematuria, incontinence, pain, , vagina discharge, urgency, others Neurological: denies: dizziness, fainting, headache, left sided numbness, left sided weakness, numbness, paresthesia, pre-existing deficit, right sided numbness, right sided weakness, seizure, speech problems, tingling, tremors, weakness, others Musculoskeletal: denies: back pain, gout, joint pain, joint swelling, muscle pain, muscle stiffness, neck pain, others Integumetry: denies: bruises, change in color, change in hair/nails, dryness, laceration, lesions, lumps, rash, wounds, others Allergic/Immunocompromised: denies: Difficulty Healing, Frequent Infections, Hives, Itching, others Hematologic/Lymphatic: denies: anemia, blood clots, easy bleeding, easy bruising, swollen glands, others Endocrine: denies: excessive hunger, excessive sweating, excessive thirst, excessive urination, flushing, intolerance to cold, intolerance to heat, unexplained weight gain, unexplained weight loss, others Psychiatric: denies: anxiety, bipolar disorder, depression, hopeless, panic disorder, schizophrenia, sleepless, suicidal, others All Other Systems: Reviewed and Negative Physical Exam General Appearance: Moderate Distress HEENT: Normal ENT Inspection, Pharynx Normal, TMs Normal Neck: Full Range of Motion, Non-Tender, Normal, Normal Inspection Respiratory: Chest Non-Tender, Lungs Clear, No Accessory Muscle Use, No Respiratory Distress, Normal Breath Sounds Cardiovascular: No Edema, No JVD, No Murmur, No Gallop, Normal Peripheral Pulses, Regular Rate/Rhythm Breast Exam: Deferred Gastrointestinal: No Organomegaly, No Pulsatile Mass, Normal Bowel Sounds, RLQ, RUQ, Soft, Tenderness Genitalia: Deferred Pelvic: Deferred Rectal: Deferred Extremities: No calf tenderness, Normal capillary refill, Normal inspection, Normal range of motion, Non-tender, No pedal edema Musculoskeletal : Apperance: Normal Neurologic: Alert, dip tube assembler machine II-XII nml as Tested, No Motor Deficits, Normal Affect, Normal Mood, No Sensory Deficits Cerebellar Function: Normal Reflexes: Normal Skin: Dry, Normal Color, Warm Lymphatic: No Adenopathy Was a procedure done? Was a procedure done?: No EKG EKG : Pulse Rate (adult): 61 [place]: Normal Cardiac Rhythm: NSR Block: None ST: Nonsp Differential Dx Considerations may include: Appendicitis, cholecystitis, hernia, viral syndrome, UTI X-Ray, Labs, Meds, VS Vital Signs Date Time Temp Pulse Resp B/P (MAP) Pulse Ox O2 Delivery O2 Flow Rate FiO2 03/11/24 14:11 59 15 145/68 03/11/24 13:43 62 18 169/90 03/11/24 13:34 99.3 63 18 150/75 (100) 98 99.3 03/11/24 13:34 63 18 98 Room Air 03/11/24 12:14 61 03/11/24 12:12 99.3 62 19 169/90 (116) 98 Lab Test 03/11/24 12:37 Range/Units White Blood Count 4.6 4.4-10.8 10^3/uL Red Blood Count 3.48 L 4.0-5.20 10^6/uL Hemoglobin 10.5 L 12.2-16.2 g/dL Hematocrit 31.2 L 36.0-46.0 % Mean Corpuscular Volume 89.7 80.0-100.0 fL Mean Corpuscular Hemoglobin 30.1 28.0-32.0 pg Mean Corpuscular Hemoglobin Concent 33.5 32.0-36.0 g/dL Red Cell Distribution Width 15.8 H 11.8-14.3 % Platelet Count 168 140-450 10^3/uL Mean Platelet Volume 7.8 6.9-10.8 fL Neutrophils (%) (Auto) 37.0-80.0 % Lymphocytes (%) (Auto) 10.0-50.0 % Monocytes (%) (Auto) 0.0-12.0 % Basophils (%) (Auto) 0.0-2.0 % Neutrophils # (Auto) 1.6-8.6 10 ^3/uL Lymphocytes # (Auto) 0.4-5.4 10 ^3/uL Monocytes # (Auto) 0-1.3 10 ^3/uL Differential Total Cells Counted 100.0 100 Neutrophils % (Manual) 72 37.0-80.0 Band Neutrophils % (Manual) 0 Lymphocytes % (Manual) 24 10.0-50.0 Monocytes % (Manual) 2 0-12 Eosinophils % (Manual) 2 0-7 Basophils % (Manual) 0 0.0-2.0 Metamyelocytes % (manual) 0 Myelocytes % (Manual) 0 Promyelocytes % (Manual) 0 Blast Cells % (Manual) 0 Reactive Lymphocytes 0 Platelet Estimate Adequate Sodium Level 143 136-145 mmol/L Potassium Level 4.4 3.5-5.1 mmol/L Chloride Level 108 H 98-107 mmol/L Carbon Dioxide Level 22 20-31 mmol/L Anion Gap 13 5-15 Blood Urea Nitrogen 39 H 9-23 mg/dL Creatinine 2.73 H 0.550-1.02 mg/dL Glomerular Filtration Rate Calc 18 >90 mL/min BUN/Creatinine Ratio 14.3 10.0-20.0 Serum Glucose 102 74-106 mg/dL Calcium Level 9.8 8.7-10.4 mg/dL Total Bilirubin 0.8 0.2-1.0 mg/dL Aspartate Amino Transferase (AST) 10 L 13-40 U/L Alanine Aminotransferase (ALT) < 9 7-40 U/L Alkaline Phosphatase 77 46-116 U/L Total Protein 6.6 5.7-8.2 g/dL Albumin 4.6 3.2-4.8 g/dL Lipase 27 12-53 U/L Current Medications Medications (Trade) Dose Ordered Sig/Ginger Route Start Time Stop Time Status Last Admin Ondansetron HCl (Zofran) 4 mg ONCE ONCE IV 03/11/24 12:15 03/11/24 12:16 DC 03/11/24 13:43 Morphine Sulfate 4 mg ONCE ONCE IV 03/11/24 12:15 03/11/24 12:16 DC 03/11/24 13:43 Abdomen/Pelvis CT Scan Impression: 1. There is no acute process in the abdomen and pelvis. 2. Left nephrectomy. 3. Scattered diverticula in the distal colon. The CBC shows anemia with a hemoglobin 10.5 and hematocrit of 31.2 The lipase is within normal limits The chemistry panel shows a BUN of 39 and creatinine of 2.73 The patient was given morphine 4 mg IV push for the pain The patient was given Zofran for the nausea The patient was being admitted at this time Images Reviewed?: Images reviewed and evaluated by me Time of 1ST Reevaluation: 12:45 Reevaluation 1ST: Unchanged Patient Education/Counseling: Diagnosis, Treatment, Prognosis Family Education/Counseling: No Family Present Departure 1 Departure Time of Disposition: 14:30 Impression: Primary Impression: Intractable abdominal pain Disposition: 09 ADMITTED INPATIENT Admit to: Med Surg Condition: Fair Critical Care Note Critical Care Time?: No Stability Stability form required: Yes Unstable for transfer: ED Physician Assesment (Clinical assesment) Heart Score Heart Score: Heart Score Response (Comments) Value History N/A 0 EKG N/A 0 Age N/A 0 Risk Factors N/A 0 Troponin N/A 0 Total 0 I personally scribed for MAHESH ALANIS MD ([email or web address]) on 03/11/24 at 12:18. Electronically submitted by Lex Hunt ([email or web address]). I personally scribed for MAHESH ALANIS MD ([email or web address]) on 03/11/24 at 14:00. Electronically submitted by Lex Hunt ([email or web address]). MAHESH ALANIS MD Mar 11, 2024 12:18
--- NOTE | 2024-03-11 12:21 | ECG ---
[facility] Test Date: 2024-03-11 Test Time: 12:14:55 Pat Name: DONTRELL COTTON Department: er Room: Gender: F [employer] Worker: gp : [phone] Requested By: MAHESH ALANIS Order Number: [id number] Reading MD: Thomas Tee Measurements Intervals [place] Rate: 61 P: 43 VT: 256 QRS: 45 QRSD: 135 T: 37 QT: 420 QTc: 423 Interpretive Statements Sinus rhythm Prolonged VT interval Nonspecific intraventricular conduction delay Anterior infarct, old Electronically Signed On 03-11-2024 14:18:41 PST by Thomas Tee Please click the below link to view image of tracing.
[2024-03-11 12:54] LABS: Hematocrit 31.2 % (36.0-46.0); Hemoglobin 10.5 g/dL (12.2-16.2); Mean Corpuscular Hemoglobin 30.1 pg (28.0-32.0); Mean Corpuscular Hgb Conc. 33.5 g/dL (32.0-36.0); Mean Corpuscular Volume 89.7 fL (80.0-100.0); Platelet Count (auto) 168 10^3/uL (140-450); Red Blood Cells 3.48 10^6/uL (4.0-5.20); Red Cell Distribution Width 15.8 % (11.8-14.3); White Blood Cell 4.6 10^3/uL (4.4-10.8)
[2024-03-11 13:07] LABS: Band Neutrophils % (manual) 0; Basophils % (manual) 0 (0.0-2.0); Blast Cells 0; Metamyelocytes % 0; Myelocytes % 0; Promyelocytes % 0; Reactive Lymphocytes 0
[2024-03-11 13:08] LABS: Albumin 4.6 g/dL (3.2-4.8); Alkaline Phosphatase 77 U/L (46-116); Anion Gap 13 (5-15); BUN/Creatinine Ratio 14.3 (10.0-20.0); Bilirubin, Total 0.8 mg/dL (0.2-1.0); Calcium 9.8 mg/dL (8.7-10.4); Carbon Dioxide 22 mmol/L (20-31); Glucose 102 mg/dL (74-106); Lipase 27 U/L (12-53); Potassium 4.4 mmol/L (3.5-5.1); Sodium 143 mmol/L (136-145); Total Protein 6.6 g/dL (5.7-8.2)
[2024-03-11 13:11] LABS: Alanine Aminotransferase < 9 U/L (7-40); Aspartate Aminotransferase 10 U/L (13-40); Blood Urea Nitrogen 39 mg/dL (9-23); Chloride 108 mmol/L (98-107)
--- NOTE | 2024-03-11 13:20 | DVH ---
CT ABDOMEN AND PELVIS WITHOUT CONTRAST CLINICAL HISTORY: PAIN TECHNIQUE: Multiple contiguous axial images of the abdomen and pelvis without intravenous contrast. The images were reformatted degenerate coronal and sagittal reconstructions. All CT scans at this medical facility are performed using dose modulation techniques as appropriate t o a performed exam including the following:Automated exposure control was utilized; adjustment of the MA and/or KV according to patient size; and use of iterative reconstruction technique. Radiation Dose Information: CT Dose: CTDI volume is 16.13 mGy. Dose-length product is 833.76 mGy*cm Comparison: CT CT AB PEL WO CON-NO ORAL OR IV on DOS: 08/02/22 FINDINGS: Evaluation of the abdomen and pelvis is limited without intravenous contrast. The left kidney is surgically absent. There is a 3.8 cm benign-appearing right renal cyst. There is n o evidence of right renal nephrolithiasis or hydronephrosis. There are small layering calcified gallstones within the gallbladder. The liver, pancreas, adrena l glands, and spleen appear within normal limits. There is no gross evidence of abdominal lymphadenopathy. There is no free fluid or free air. The stomach grossly appears unremarkable. The small and large bowel loops demonstrate normal caliber . There are scattered diverticula in the distal colon without evidence of acute diverticulitis. The abdominal aorta and IVC appear within normal limits. The bladder appears unremarkable for the degree of distention. Uterus is surgically absent.. There i s no gross evidence of a pelvic mass. There is no free fluid collection. Lung bases are clear. There is no acute osseous abnormality. IMPRESSION: 1. There is no acute process in the abdomen and pelvis. 2. Left nephrectomy. 3. Scattered diverticula in the distal colon. HS:Y
[2024-03-11] MEDS: ONDANSETRON HCL 4 MG/2 ML VIAL IV ONE (13:43)
[2024-03-11] MEDS: MORPHINE SULFATE 4 MG/ML SYR/VIAL IV ONE (13:43)
[2024-03-11 13:44] LABS: Eosinophils % (manual) 2 (0-7); Lymphocytes % (manual) 24 (10.0-50.0); Monocytes % (manual) 2 (0-12)
[2024-03-11 14:25] LABS: Platelet Estimate Adequate
[2024-03-11] MEDS ORDERED: hydrALAZINE HCL 20 MG/ML VL IV PRN (14:45)
--- NOTE | 2024-03-11 15:01 | DVHHP2 ---
History of Present Illness Reason for Visit: Neuropathy and RUQ abdominal pain History of Present Illness Bhavna Randolph is a 74YO F with pmHx of neuropathy, HTN, HLD, thyroid disease s/p thyroidectomy, anxiety, chf, asthma, s/p left nephrectomy, and constipation who presents to the ED for RLE pain that radiates to her RUQ abdomen this am between [id number]. Upon examination patient reports nausea with no vomiting and RLE pain is 10/10 burning. Patient states she is compliant with her medications and she is taking opioids for chronic pain. Patient denies vomiting, chest pain, short ness of breath, fever, chills, and recent trauma/injury. Cardiovascular: CHF, HTN, hyperipidemia Pulmonary: Asthma TARPER: Periperal neuropathy GI: Constipation Psych: Anxiety Endocrine: Hypothyroidism Past Surgical History Thyroidectomy Left nephrectomy Family History: None Smoke: No ALCOHOL: none Drugs: None Lives: Alone Domestic Violence: Neg Review of Systems Constitutional: No: Fever, Chills, Sweats, Weakness, Malaise, Other Eyes: No: Pain, Vision change, Conjunctivae inflammation, Eyelid inflammation, Other, Redness ENT: No: Ear pain, Ear discharge, Nose pain, Nose discharge, Nose congestion, Mouth pain, Mouth swelling, Throat pain, Throat swelling, Other Respiratory: No: Cough, Dry, Shortness of breath, SOB with excertion, Wheezing, Hemoptysis, Pleuritic Pain, Sputum, Wheezing, Other Cardiovascular: No: Chest Pain, Palpitations, Orthopnea, Paroxysmal Noc. Dyspnea, Edema, Lt Headedness, Other Gastrointestinal: Nausea, Abdominal Pain, Constipation; No: Vomiting, Diarrhea, Melena, Hematochezia, Other Genitourinary: No Dysuria, No Frequency, No Incontinence, No Hematuria, No Retention, No Other Musculoskeletal: leg pain; No: other, neck pain, shoulder pain, arm pain, back pain, hand pain, foot pain Skin: No: Rash, Lesions, Jaundice, Bruising, Other Neurological: No: Weakness, Numbness, Incoordination, Change in speech, Confusion, Seizures, Other Allergies: Coded Allergies: NO KNOWN ALLERGIES (Unverified , 11/11/18) Medications Current Medications Medications Dose Ordered Sig/Ginger Route Start Time Stop Time Status Last Admin Dose Admin Acetaminophen 500 mg Q4HP PRN PO 03/11/24 14:45 Hydralazine HCl 10 mg Q6HP PRN IV 03/11/24 14:45 Exam Vital Signs Vital Signs Date Time Temp Pulse Resp B/P (MAP) Pulse Ox O2 Delivery O2 Flow Rate FiO2 03/11/24 14:31 61 03/11/24 14:11 15 145/68 03/11/24 13:34 99.3 98 99.3 03/11/24 13:34 Room Air General Appearance: Alert, Oriented X3, Cooperative, No acute distress HEENT: Atraumatic, PERRLA, EOMI, Mucous membr. moist/pink Respiratory: Clear to auscultation, Normal air movement Cardiovascular: Regular rate, Normal S1, Normal S2, No murmurs Abdominal: Soft Extremities: No clubbing, No cyanosis, No edema, Normal pulses, No tenderness/swelling Skin: No rashes, No breakdown, No significant lesion Neuro: Normal speech, Strength at 5/5 X4 ext, Normal tone Psych/Mental Status: Mental status NL, Mood NL Labs/Xrays Labs Test 03/11/24 12:37 Range/Units White Blood Count 4.6 4.4-10.8 10^3/uL Red Blood Count 3.48 L 4.0-5.20 10^6/uL Hemoglobin 10.5 L 12.2-16.2 g/dL Hematocrit 31.2 L 36.0-46.0 % Mean Corpuscular Volume 89.7 80.0-100.0 fL Mean Corpuscular Hemoglobin 30.1 28.0-32.0 pg Mean Corpuscular Hemoglobin Concent 33.5 32.0-36.0 g/dL Red Cell Distribution Width 15.8 H 11.8-14.3 % Platelet Count 168 140-450 10^3/uL Mean Platelet Volume 7.8 6.9-10.8 fL Neutrophils (%) (Auto) 37.0-80.0 % Lymphocytes (%) (Auto) 10.0-50.0 % Monocytes (%) (Auto) 0.0-12.0 % Basophils (%) (Auto) 0.0-2.0 % Neutrophils # (Auto) 1.6-8.6 10 ^3/uL Lymphocytes # (Auto) 0.4-5.4 10 ^3/uL Monocytes # (Auto) 0-1.3 10 ^3/uL Differential Total Cells Counted 100.0 100 Neutrophils % (Manual) 72 37.0-80.0 Band Neutrophils % (Manual) 0 Lymphocytes % (Manual) 24 10.0-50.0 Monocytes % (Manual) 2 0-12 Eosinophils % (Manual) 2 0-7 Basophils % (Manual) 0 0.0-2.0 Metamyelocytes % (manual) 0 Myelocytes % (Manual) 0 Promyelocytes % (Manual) 0 Blast Cells % (Manual) 0 Reactive Lymphocytes 0 Platelet Estimate Adequate Sodium Level 143 136-145 mmol/L Potassium Level 4.4 3.5-5.1 mmol/L Chloride Level 108 H 98-107 mmol/L Carbon Dioxide Level 22 20-31 mmol/L Anion Gap 13 5-15 Blood Urea Nitrogen 39 H 9-23 mg/dL Creatinine 2.73 H 0.550-1.02 mg/dL Glomerular Filtration Rate Calc 18 >90 mL/min BUN/Creatinine Ratio 14.3 10.0-20.0 Serum Glucose 102 74-106 mg/dL Calcium Level 9.8 8.7-10.4 mg/dL Total Bilirubin 0.8 0.2-1.0 mg/dL Aspartate Amino Transferase (AST) 10 L 13-40 U/L Alanine Aminotransferase (ALT) < 9 7-40 U/L Alkaline Phosphatase 77 46-116 U/L Total Protein 6.6 5.7-8.2 g/dL Albumin 4.6 3.2-4.8 g/dL Lipase 27 12-53 U/L CT ABDOMEN AND PELVIS WITHOUT CONTRAST CLINICAL HISTORY: PAIN FINDINGS: Evaluation of the abdomen and pelvis is limited without intravenous contrast. The left kidney is surgically absent. There is a 3.8 cm benign-appearing right renal cyst. There is no evidence of right renal nephrolithiasis or hydronephrosis. There are small layering calcified gallstones within the gallbladder. The idalia er, pancreas, adrenal glands, and spleen appear within normal limits. There is no gross evidence of abdominal lymphadenopathy. There is no free fluid or free air. The stomach grossly appears unremarkable. The small and large bowel loops demonstrate normal caliber. There are scattered diverticula in the distal colon without evidence of acute diverticulitis. The abdominal aorta and IVC appear within normal limits. The bladder appears unremarkable for the degree of distention. Uterus is surgically absent.. There is no gross evidence of a pelvic mass. There is no free fluid collection. Lung bases are clear. There is no acute osseous abnormality. IMPRESSION: 1. There is no acute process in the abdomen and pelvis. 2. Left nephrectomy. 3. Scattered diverticula in the distal colon. Assessment/Plan Assessment/Plan Assessment: Intractable Abdominal pain Acute on chronic kidney disease Hx of neuropathy thyroid disease s/p thyroidectomy asthma chf hld htn anxiety left nephrectomy Plan: Admit to med surg IVf Pain management Antiemetics Antihypertensives diet as tolerated EKG noted CT A/P noted home medications reconciled Discussed plan of care with patient and nurse Plan discussed with: Patient My Orders Orders - FABIAN GRULLON Procedure Category Date Status Time Acetaminophen Tablet PHA 03/11/24 In Process (Tylenol Tablet) 14:45 Hydralazine Injection PHA 03/11/24 In Process (Apresoline Inject 14:45 Problem List: (1) Intractable abdominal pain Date of Service: Mar 11, 2024 Billing Provider: FABIAN GRULLON Common Visit Codes: [id number] INP/OBS CARE (MOD) FABIAN GRULLON Mar 11, 2024 15:01
[2024-03-11] MEDS ORDERED: DOCUSATE SOD 100 MG CAP PO PRN (15:30)
[2024-03-11] MEDS ORDERED: ONDANSETRON HCL 4 MG/2 ML VIAL IV PRN (15:30)
[2024-03-11] MEDS ORDERED: ACETAMINOPHEN 325 MG TAB PO PRN (15:30)
[2024-03-11 15:42] LABS: Urine Bacteria None Seen /hpf (None Seen)
[2024-03-11 15:55] LABS: Urine Blood Negative /uL (Negative); Urine Clarity Clear (Clear); Urine Color Light-Yellow (Yellow); Urine Protein, UAD TRACE (Negative); Urine Specific Gravity 1.014 (1.001-1.035); Urine Urobilinogen Normal (Negative); Urine WBC <1 /hpf (0 - 5); Urine pH 5.5 (5.0-9.0)
[2024-03-11] MEDS: ACETAMINOPHEN 500 MG TAB PO PRN (16:33)
[2024-03-11 16:50] VITALS: O2SAT 99
[2024-03-11] MEDS: SODIUM CHLORIDE 0.9% 1,000 ML IV SCH (16:57)
[2024-03-11] MEDS: HYDROcodone-ACET 5/325MG TAB PO PRN (18:37)
[2024-03-11 21:20] VITALS: PULSE 64; RESP 11; O2SAT 98
[2024-03-11] MEDS ORDERED: ASCORBIC ACID 500 MG TAB PO SCH (22:00)
[2024-03-12] MEDS: MORPHINE SULFATE INJ 2 MG/ml SYRG IV PRN (01:57)
[2024-03-12 02:33] VITALS: BP 132/79; PULSE 60; RESP 16; RESP 20; TEMP 97.9; O2SAT 98; O2SAT 99
[2024-03-12] MEDS ORDERED: FERR325T20 PO (03:03)
[2024-03-12] MEDS ORDERED: OXY10CRT PO (03:03)
[2024-03-12 05:00] VITALS: BP_SYST 130; BP_SYST 138; BP_DIAS 68; BP_DIAS 69; PULSE 59; PULSE 93; RESP 18; RESP 20; TEMP 97.5; TEMP 97.8; O2SAT 94; O2SAT 96
[2024-03-12 07:09] LABS: Basophils # (auto) 0 10 ^3/uL (0-0.2); Basophils % (auto) 0.8 % (0.0-2.0); Eosinophils # (auto) 0 10 ^3/uL (0-0.8); Eosinophils % (auto) 0.1 % (0.0-7.0); Hematocrit 27.8 % (36.0-46.0); Hemoglobin 9.4 g/dL (12.2-16.2); Lymphocytes # (auto) 1.8 10 ^3/uL (0.4-5.4); Lymphocytes % (auto) 49.1 % (10.0-50.0); Mean Corpuscular Hemoglobin 30.3 pg (28.0-32.0); Mean Corpuscular Hgb Conc. 33.8 g/dL (32.0-36.0); Mean Corpuscular Volume 89.8 fL (80.0-100.0); Monocytes # (auto) 0.3 10 ^3/uL (0-1.3); Monocytes % (auto) 8.7 % (0.0-12.0); Neutrophils # (auto) 1.5 10 ^3/uL (1.6-8.6); Neutrophils % (auto) 41.3 % (37.0-80.0); Nucleated Red Blood Cells % 0.1 %; Platelet Count (auto) 144 10^3/uL (140-450); Red Cell Distribution Width 15.8 % (11.8-14.3); White Blood Cell 3.7 10^3/uL (4.4-10.8)
[2024-03-12 07:25] LABS: Albumin 3.8 g/dL (3.2-4.8); Alkaline Phosphatase 63 U/L (46-116); Anion Gap 11 (5-15); BUN/Creatinine Ratio 10.2 (10.0-20.0); Bilirubin, Total 0.7 mg/dL (0.2-1.0); Calcium 9.7 mg/dL (8.7-10.4); Carbon Dioxide 21 mmol/L (20-31); Potassium 4.2 mmol/L (3.5-5.1); Sodium 143 mmol/L (136-145)
[2024-03-12 07:26] LABS: Total Protein 5.9 g/dL (5.7-8.2)
[2024-03-12 07:30] LABS: Alanine Aminotransferase < 9 U/L (7-40); Aspartate Aminotransferase < 8 U/L (13-40); Blood Urea Nitrogen 31 mg/dL (9-23); Chloride 111 mmol/L (98-107); Glucose 89 mg/dL (74-106)
[2024-03-12 08:30] VITALS: BP 115/61; PULSE 56; RESP 17; TEMP 97.9; O2SAT 97
[2024-03-12] MEDS: ZINC SULFATE 220mg CAP or TAB PO SCH (09:11)
[2024-03-12] MEDS: MULTIPLE VITAMIN TAB PO SCH (09:12)
[2024-03-12] MEDS ORDERED: MORPHINE SULFATE INJ 2 MG/ml SYRG IV ONE (12:30)
[2024-03-12 13:30] VITALS: BP 122/67; PULSE 54; RESP 19; TEMP 97.9; O2SAT 98
--- NOTE | 2024-03-12 14:08 | DVHPN2 ---
Subjective Patient reports having severe right lower extremity pain, describing it as burning that shoots up and down her leg up to her back. Reviewed: Care Plan, H&P, Labs, Medications Changes from previous H/P or p: No Changes General: Per HPI Eyes: No Pain, No Vision change, No Conjunctivae inflammation, No Eyelid inflammation, No Other, No Redness ENT: No Ear pain, No Ear discharge, No Nose pain, No Nose discharge, No Nose congestion, No Mouth pain, No Mouth swelling, No Throat pain, No Throat swelling, No Other Cardiovascular: No Chest Pain, No Palpitations, No Orthopnea, No Paroxysmal Noc. Dyspnea, No Edema, No Lt Headedness, No Other Respiratory: No Cough, No Dry, No Shortness of breath, No SOB with excertion, No Wheezing, No Hemoptysis, No Pleuritic Pain, No Sputum, No Other Gastrointestinal: Nausea; No Vomiting; Abdominal Pain; No Diarrhea; C onstipation; No Melena, No Hematochezia, No Other Genitourinary: No Dysuria, No Frequency, No Incontinence, No Hematuria, No Retention, No Other Musculoskeletal: No other, No neck pain, No shoulder pain, No arm pain, No back pain, No hand pain; leg pain; No foot pain Skin: No Rash, No Lesions, No Jaundice, No Bruising, No Other Objective Vitals Vital Signs Date Time Temp Pulse Resp B/P (MAP) Pulse Ox O2 Delivery O2 Flow Rate FiO2 03/12/24 12:37 59 16 122/67 03/12/24 08:30 97.9 97 97.9 03/12/24 02:33 Room Air* 0 21 Intake/Output Intake and Output 03/12/24 07:00 Intake Total 120 ml Balance 120 ml Intake Oral 0 ml IV Total 120 ml # Voids 1 General Appearance: Alert, Oriented X3, Cooperative HEENT: Atraumatic, PERRLA Cardiovascular: Normal S1, Normal S2 Abdomen: Normal bowel sounds, Soft, No tenderness Musculoskeletal: Weak motor strength RLE Neuro: Normal gait, Normal speech Psych/Mental Status: Mental status NL, Mood NL Medications Current Medications Medications Dose Ordered Sig/Ginger Route Start Time Stop Time Status Last Admin Dose Admin Acetaminophen 500 mg Q4HP PRN PO 03/11/24 14:45 03/11/24 16:33 500 MG Hydralazine HCl 10 mg Q6HP PRN IV 03/11/24 14:45 Sodium Chloride 1,000 ml @ 60 mls/hr [id number] IV 03/11/24 15:30 03/12/24 09:58 60 MLS/HR Acetaminophen/ Hydrocodone Bitart 1 tab Q4HP PRN PO 03/11/24 15:30 03/12/24 09:12 1 TAB Ondansetron HCl 4 mg Q4HP PRN IV 03/11/24 15:30 Docusate Sodium 100 mg BIDPRN PRN PO 03/11/24 15:30 Zinc Sulfate 220 mg DAILY PO 03/12/24 10:00 03/12/24 09:11 220 MG Multivitamins 1 tab DAILY PO 03/12/24 10:00 03/12/24 09:12 1 TAB Acetaminophen 650 mg Q6HP PRN PO 03/11/24 15:30 Morphine Sulfate 2 mg Q4HPRN PRN IV 03/11/24 15:30 03/12/24 12:37 2 MG Laboratory Results Laboratory Tests 03/12/24 06:46 Chemistry Test 03/12/24 06:46 Albumin 3.8 g/dL (3.2-4.8) Calcium Level 9.7 mg/dL (8.7-10.4) Total Protein 5.9 g/dL (5.7-8.2) LFT Test 03/12/24 06:46 Alanine Aminotransferase (ALT) < 9 U/L (7-40) Alkaline Phosphatase 63 U/L (46-116) Aspartate Amino Transferase (AST) < 8 U/L (13-40) L Total Bilirubin 0.7 mg/dL (0.2-1.0) Urinalysis Test 03/11/24 15:40 Urine Color Light-yellow (Yellow) Urine Clarity Clear (Clear) Urine pH 5.5 (5.0-9.0) Urine Specific [place] 1.014 (1.001-1.035) Urine Protein Trace (Negative) H Urine Ketones Negative (Negative) Urine Blood Negative /uL (Negative) Urine Nitrite Negative (Negative) Urine Bilirubin Negative (Negative) Urine Urobilinogen Normal mg/dL (Negative) Urine Leukocyte Esterase Negative /uL (Negative) Urine RBC <1 /hpf (0 - 4) Urine WBC <1 /hpf (0 - 5) Urine Squamous Epithelial Cells Few /hpf (<5) Urine Bacteria None seen /hpf (None Seen) Urine Glucose Normal mg/dL (Normal) Labs and/or images reviewed: Labs reviewed by me, Image(s) reviewed by me Assessment/Plan Assessment/Plan Impression: -right lower extremity paresthesia and radiculopathy secondary to lumbar spinal stenosis -primary hypertension -chronic pain syndrome -chronic kidney disease stage IIIB/four -history of left nephrectomy -obesity -hypothyroidism Plan: -MRI of the lumbar spine -pain management: Change back to patient's dose of Percocet, morphine for breakthrough pain -antihypertensives -thyroid supplementation -patient may require lumbar spinal consultation depending on MRI results Total time spent with patient and family regarding advance care plannin minutes. Total time spent with patient discussing and formulating plan of care: 35 minutes. This medical document was created using an electronic medical record system with [employer] dictation system. Although this document has been carefully reviewed, there may still be some phonetic and typographical errors. These areas are purely typographical due to imperfections of the software programs, and do not reflect any compromise in the patient's medical care. Plan discussed with: Patient, Other (RN) Date of Service: Mar 12, 2024 Billing Provider: DIANE FRANKLIN NP Common Visit Codes: [id number] INP/OBS CARE(HIGH) DIANE FRANKLIN NP Mar 12, 2024 14:08
[2024-03-12] MEDS: OXYCODONE W/ ACETAMINOPHEN 5/325MG TABLET PO PRN (15:42)
[2024-03-12 16:52] VITALS: BP 114/72; PULSE 51; RESP 17; TEMP 98.3; O2SAT 97
[2024-03-12 21:00] VITALS: BP 110/72; PULSE 57; RESP 18; TEMP 98.5; O2SAT 96
[2024-03-13 00:52] VITALS: BP 135/78; PULSE 76; RESP 18; TEMP 98.4; O2SAT 95
[2024-03-13 05:00] VITALS: BP 134/75; PULSE 55; RESP 18; TEMP 98.3; O2SAT 97
[2024-03-13] MEDS: LEVOTHYROXINE SODIUM 50 MCG TAB PO SCH (05:06)
[2024-03-13 09:00] VITALS: BP 110/71; PULSE 57; RESP 18; TEMP 97.8; O2SAT 95
--- NOTE | 2024-03-13 09:22 | DVHPN2 ---
Subjective Patient reports that her back and leg pain has improved with new pain management. Reports having difficulty sleeping. Reviewed: Care Plan, H&P, Labs, Medications Changes from previous H/P or p: No Changes General: Per HPI Eyes: No Pain, No Vision change, No Conjunctivae inflammation, No Eyelid inflammation, No Other, No Redness ENT: No Ear pain, No Ear discharge, No Nose pain, No Nose discharge, No Nose congestion, No Mouth pain, No Mouth swelling, No Throat pain, No Throat swelling, No Other Cardiovascular: No Chest Pain, No Palpitations, No Orthopnea, No Paroxysmal Noc. Dyspnea, No Edema, No Lt Headedness, No Other Respiratory: No Cough, No Dry, No Shortness of breath, No SOB with excertion, No Wheezing, No Hemoptysis, No Pleuritic Pain, No Sputum, No Other Gastrointestinal: Nausea; No Vomiting; Abdominal Pain; No Diarrhea; C onstipation; No Melena, No Hematochezia, No Other Genitourinary: No Dysuria, No Frequency, No Incontinence, No Hematuria, No Retention, No Other Musculoskeletal: No other, No neck pain, No shoulder pain, No arm pain, No back pain, No hand pain; leg pain; No foot pain Skin: No Rash, No Lesions, No Jaundice, No Bruising, No Other Objective Vitals Vital Signs Date Time Temp Pulse Resp B/P (MAP) Pulse Ox O2 Delivery O2 Flow Rate FiO2 03/13/24 08:47 57 18 110/71 03/13/24 05:00 98.3 97 98.3 03/12/24 20:00 Room Air* 0 21 Intake/Output Intake and Output 03/13/24 07:00 Intake Total 1160 ml Balance 1160 ml Intake Oral 1160 ml # Voids 11 # Bowel Movements 1 General Appearance: Alert, Oriented X3, Cooperative HEENT: Atraumatic, PERRLA Cardiovascular: Normal S1, Normal S2 Abdomen: Normal bowel sounds, Soft, No tenderness Musculoskeletal: Weak motor strength RLE Neuro: Normal gait, Normal speech Psych/Mental Status: Mental status NL, Mood NL Medications Current Medications Medications Dose Ordered Sig/Ginger Route Start Time Stop Time Status Last Admin Dose Admin Acetaminophen 500 mg Q4HP PRN PO 03/11/24 14:45 Hold 03/11/24 16:33 500 MG Hydralazine HCl 10 mg Q6HP PRN IV 03/11/24 14:45 Ondansetron HCl 4 mg Q4HP PRN IV 03/11/24 15:30 Docusate Sodium 100 mg BIDPRN PRN PO 03/11/24 15:30 Zinc Sulfate 220 mg DAILY PO 03/12/24 10:00 03/13/24 08:46 220 MG Multivitamins 1 tab DAILY PO 03/12/24 10:00 03/13/24 08:46 1 TAB Acetaminophen 650 mg Q6HP PRN PO 03/11/24 15:30 Morphine Sulfate 2 mg Q4HPRN PRN IV 03/11/24 15:30 03/13/24 08:47 2 MG Oxycodone/ Acetaminophen 2 tab Q6HP PRN PO 03/12/24 14:15 03/13/24 06:23 2 TAB Morphine Sulfate 2 mg Q6HPRN PRN IV 03/12/24 14:15 Levothyroxine Sodium 75 mcg QAM@0600 PO 03/13/24 06:00 03/13/24 05:06 75 MCG Laboratory Results Laboratory Tests 03/12/24 06:46 Urinalysis Test 03/11/24 15:40 Urine Color Light-yellow (Yellow) Urine Clarity Clear (Clear) Urine pH 5.5 (5.0-9.0) Urine Specific [place] 1.014 (1.001-1.035) Urine Protein Trace (Negative) H Urine Ketones Negative (Negative) Urine Blood Negative /uL (Negative) Urine Nitrite Negative (Negative) Urine Bilirubin Negative (Negative) Urine Urobilinogen Normal mg/dL (Negative) Urine Leukocyte Esterase Negative /uL (Negative) Urine RBC <1 /hpf (0 - 4) Urine WBC <1 /hpf (0 - 5) Urine Squamous Epithelial Cells Few /hpf (<5) Urine Bacteria None seen /hpf (None Seen) Urine Glucose Normal mg/dL (Normal) Labs and/or images reviewed: Labs reviewed by me, Image(s) reviewed by me Assessment/Plan Assessment/Plan Impression: -right lower extremity paresthesia and radiculopathy secondary to lumbar spinal stenosis -primary hypertension -chronic pain syndrome -chronic kidney disease stage IIIB/four -history of left nephrectomy -obesity -hypothyroidism Plan: -patient reports that her pain has improved. Denies any urinary or fecal incontinence. -MRI of the lumbar spine : Pending -pain management: Continue current pain management, add gabapentin 200 mg p.o. t.i.d. -antihypertensives -thyroid supplementation -patient may require lumbar spine surgery consultation depending on MRI results Total time spent with patient discussing and formulating plan of care: 35 minutes. This medical document was created using an electronic medical record system with [employer] dictation system. Although this document has been carefully reviewed, there may still be some phonetic and typographical errors. These areas are purely typographical due to imperfections of the software programs, and do not reflect any compromise in the patient's medical care. Plan discussed with: Patient, Other (RN) My Orders Orders - DIANE FRANKLIN NP Procedure Category Date Status Time Lumbar Spine Wo MRI 03/12/24 Logged Contrast 14:04 Oxycodone W/ Acet PHA 03/12/24 In Process 5/325mg Tab (Percocet 14:15 Morphine Sulfate PHA 03/12/24 In Process Injection 14:15 Levothyroxine Tablet PHA 03/13/24 In Process (Synthroid Tablet) 06:00 Melatonin (Melatonin) PHA 03/13/24 Verified 22:00 Gabapentin Capsule PHA 03/13/24 Verified (Neurontin Capsule) 14:00 Date of Service: Mar 13, 2024 Billing Provider: DIANE FRANKLIN NP Common Visit Codes: [id number] INP/OBS CARE(HIGH) DIANE FRANKLIN NP Mar 13, 2024 09:22
[2024-03-13 12:50] VITALS: BP 146/76; PULSE 52; RESP 18; TEMP 98.2; O2SAT 97
[2024-03-13] MEDS: GABAPENTIN 100 MG CAP PO SCH (16:23)
[2024-03-13 17:00] VITALS: BP 147/80; PULSE 55; RESP 19; TEMP 98; O2SAT 98
[2024-03-13 20:56] VITALS: BP 144/78; PULSE 57; RESP 18; TEMP 98.6; O2SAT 98
[2024-03-13] MEDS: MELATONIN 5 MG TAB PO ONE (21:45)
[2024-03-14] VITALS (7 sets, daily range): BP systolic 121–132; BP diastolic 68–76; PULSE 54–61; RESP 16–20; TEMP 97.4–98.7; O2SAT 93–97
[2024-03-14] MEDS: MORPHINE SULFATE INJ 2 MG/ml SYRG IV PRN (09:18)
--- NOTE | 2024-03-14 10:49 | DVH ---
CLINICAL INFORMATION: 74 years old, Female; SEVERE PARESTHESIA AND RADICULOPATHY. TECHNIQUE: Multisequence multiplanar MRI images of the lumbar spine were obtained without contrast. COMPARISON: None INTERPRETATION: Vertebral body alignment is within normal limits. Chronic compression fracture of t he L2 vertebral body with up to 50% loss of height. Prominent Schmorl's node at the superior endplate of L2 also noted. Posterior elements are intact. Prominent intraosseous hemangioma in the anterio r aspect of the L4 vertebral body. Visualized spinal cord and cauda equina are within normal limits. The conus medullaris is appropriate in signal at the L1-L2 level. Moderate fatty atrophy in the pa raspinal musculature of the lumbosacral spine. Postsurgical changes of prior left nephrectomy inciden tally noted. L1-L2: Disc desiccation. Mild disc bulge small bilateral foraminal disc protrusions. 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 Facet hypertrophy and e ncroachment of the neural foramina by the disc protrusions contributes to moderate to severe bilatera l neural foraminal stenoses. L2-L3: Disc desiccation with diffuse disc bulge superimposed on congenital spinal canal narrowing ca using moderate spinal canal stenosis and partial effacement of the lateral recesses. Facet hypertroph y and encroachment of the neural foramina by the disc bulge contributes to severe bilateral neural fo raminal stenoses, right slightly greater than left. L3-L4: Disc desiccation with diffuse disc bulge superimposed on congenital spinal canal narrowing ca using moderate spinal canal stenosis and partial effacement of the lateral recesses. Facet hypertroph y and encroachment of the neural foramina by the disc bulge contributes to severe bilateral neural fo raminal stenoses, right greater than left. L4-L5: Disc desiccation with diffuse disc bulge superimposed on congenital spinal canal narrowing ca using moderate spinal canal stenosis and partial effacement of the lateral recesses. Facet hypertroph y with severe left and moderate to severe right neural foraminal stenoses. L5-S1: Disc desiccation with diffuse disc bulge mildly flattening the ventral aspect of the thecal s ac. No significant spinal canal stenosis. Facet hypertrophy and encroachment of the neural foramina b y the disc bulge contributes to severe bilateral neural foraminal stenoses. IMPRESSION: 1. Chronic compression fracture of the L2 vertebral body. 2. Degenerative disc disease and facet disease in the lumbar spine with associated spinal canal, suba rticular, and neural foraminal stenoses as detailed above. 3. There is a degree of congenital spinal canal narrowing contributing to the spinal canal stenoses. 4. Additional findings as detailed above.
--- NOTE | 2024-03-14 14:48 | DVHPN2 ---
Reviewed: Care Plan, H&P, Labs, Medications Changes from previous H/P or p: No Changes General: Per HPI Eyes: No Pain, No Vision change, No Conjunctivae inflammation, No Eyelid inflammation, No Other, No Redness ENT: No Ear pain, No Ear discharge, No Nose pain, No Nose discharge, No Nose congestion, No Mouth pain, No Mouth swelling, No Throat pain, No Throat swelling, No Other Cardiovascular: No Chest Pain, No Palpitations, No Orthopnea, No Paroxysmal Noc. Dyspnea, No Edema, No Lt Headedness, No Other Respiratory: No Cough, No Dry, No Shortness of breath, No SOB with excertion, No Wheezing, No Hemoptysis, No Pleuritic Pain, No Sputum, No Other Gastrointestinal: Nausea; No Vomiting; Abdominal Pain; No Diarrhea; C onstipation; No Melena, No Hematochezia, No Other Genitourinary: No Dysuria, No Frequency, No Incontinence, No Hematuria, No Retention, No Other Musculoskeletal: No other, No neck pain, No shoulder pain, No arm pain, No back pain, No hand pain; leg pain; No foot pain Skin: No Rash, No Lesions, No Jaundice, No Bruising, No Other Objective Vitals Vital Signs Date Time Temp Pulse Resp B/P (MAP) Pulse Ox O2 Delivery O2 Flow Rate FiO2 03/14/24 14:08 60 16 127/73 03/14/24 09:00 98.4 96 98.4 03/14/24 08:20 Room Air* 0 21 Intake/Output Intake and Output 03/14/24 07:00 Intake Total 1350 ml Balance 1350 ml Intake Oral 1350 ml # Voids 12 General Appearance: Alert, Oriented X3, Cooperative HEENT: Atraumatic, PERRLA Cardiovascular: Normal S1, Normal S2 Abdomen: Normal bowel sounds, Soft, No tenderness Musculoskeletal: Weak motor strength RLE Neuro: Normal gait, Normal speech Psych/Mental Status: Mental status NL, Mood NL Medications Current Medications Medications Dose Ordered Sig/Ginger Route Start Time Stop Time Status Last Admin Dose Admin Acetaminophen 500 mg Q4HP PRN PO 03/11/24 14:45 Hold 03/11/24 16:33 500 MG Hydralazine HCl 10 mg Q6HP PRN IV 03/11/24 14:45 Ondansetron HCl 4 mg Q4HP PRN IV 03/11/24 15:30 Docusate Sodium 100 mg BIDPRN PRN PO 03/11/24 15:30 Zinc Sulfate 220 mg DAILY PO 03/12/24 10:00 03/14/24 09:17 220 MG Multivitamins 1 tab DAILY PO 03/12/24 10:00 03/14/24 09:17 1 TAB Acetaminophen 650 mg Q6HP PRN PO 03/11/24 15:30 Morphine Sulfate 2 mg Q4HPRN PRN IV 03/11/24 15:30 03/14/24 14:08 2 MG Oxycodone/ Acetaminophen 2 tab Q6HP PRN PO 03/12/24 14:15 03/14/24 03:22 2 TAB Morphine Sulfate 2 mg Q6HPRN PRN IV 03/12/24 14:15 03/14/24 09:18 2 MG Levothyroxine Sodium 75 mcg QAM@0600 PO 03/13/24 06:00 03/14/24 05:00 75 MCG Gabapentin 200 mg TID PO 03/13/24 14:00 03/14/24 14:07 200 MG Laboratory Results Laboratory Tests 03/12/24 06:46 Urinalysis Test 03/11/24 15:40 Urine Color Light-yellow (Yellow) Urine Clarity Clear (Clear) Urine pH 5.5 (5.0-9.0) Urine Specific [place] 1.014 (1.001-1.035) Urine Protein Trace (Negative) H Urine Ketones Negative (Negative) Urine Blood Negative /uL (Negative) Urine Nitrite Negative (Negative) Urine Bilirubin Negative (Negative) Urine Urobilinogen Normal mg/dL (Negative) Urine Leukocyte Esterase Negative /uL (Negative) Urine RBC <1 /hpf (0 - 4) Urine WBC <1 /hpf (0 - 5) Urine Squamous Epithelial Cells Few /hpf (<5) Urine Bacteria None seen /hpf (None Seen) Urine Glucose Normal mg/dL (Normal) Labs and/or images reviewed: Labs reviewed by me, Image(s) reviewed by me Assessment/Plan Assessment/Plan 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
[2024-03-15] VITALS (7 sets, daily range): BP systolic 119–149; BP diastolic 71–80; PULSE 51–60; RESP 17–21; TEMP 97.4–98.7; O2SAT 94–98
--- NOTE | 2024-03-15 12:35 | DVHPN2 ---
Reviewed: Care Plan, H&P, Labs, Medications Changes from previous H/P or p: No Changes General: Per HPI Eyes: No Pain, No Vision change, No Conjunctivae inflammation, No Eyelid inflammation, No Other, No Redness ENT: No Ear pain, No Ear discharge, No Nose pain, No Nose discharge, No Nose congestion, No Mouth pain, No Mouth swelling, No Throat pain, No Throat swelling, No Other Cardiovascular: No Chest Pain, No Palpitations, No Orthopnea, No Paroxysmal Noc. Dyspnea, No Edema, No Lt Headedness, No Other Respiratory: No Cough, No Dry, No Shortness of breath, No SOB with excertion, No Wheezing, No Hemoptysis, No Pleuritic Pain, No Sputum, No Other Gastrointestinal: Nausea; No Vomiting; Abdominal Pain; No Diarrhea; C onstipation; No Melena, No Hematochezia, No Other Genitourinary: No Dysuria, No Frequency, No Incontinence, No Hematuria, No Retention, No Other Musculoskeletal: No other, No neck pain, No shoulder pain, No arm pain, No back pain, No hand pain; leg pain; No foot pain Skin: No Rash, No Lesions, No Jaundice, No Bruising, No Other Objective Vitals Vital Signs Date Time Temp Pulse Resp B/P (MAP) Pulse Ox O2 Delivery O2 Flow Rate FiO2 03/15/24 09:00 98.4 51 21 127/80 (96) 97 98.4 03/15/24 08:20 Room Air* 0 21 Intake/Output Intake and Output 03/15/24 07:00 Intake Total 1300 ml Output Total 1300 ml Balance 0 ml Intake Oral 1300 ml Output Urine Total 1300 ml # Voids 7 General Appearance: Alert, Oriented X3, Cooperative HEENT: Atraumatic, PERRLA Cardiovascular: Normal S1, Normal S2 Abdomen: Normal bowel sounds, Soft, No tenderness Musculoskeletal: Weak motor strength RLE Neuro: Normal gait, Normal speech Psych/Mental Status: Mental status NL, Mood NL Medications Current Medications Medications Dose Ordered Sig/Ginger Route Start Time Stop Time Status Last Admin Dose Admin Acetaminophen 500 mg Q4HP PRN PO 03/11/24 14:45 Hold 03/11/24 16:33 500 MG Hydralazine HCl 10 mg Q6HP PRN IV 03/11/24 14:45 Ondansetron HCl 4 mg Q4HP PRN IV 03/11/24 15:30 Docusate Sodium 100 mg BIDPRN PRN PO 03/11/24 15:30 Zinc Sulfate 220 mg DAILY PO 03/12/24 10:00 03/15/24 08:04 220 MG Multivitamins 1 tab DAILY PO 03/12/24 10:00 03/15/24 08:04 1 TAB Acetaminophen 650 mg Q6HP PRN PO 03/11/24 15:30 Morphine Sulfate 2 mg Q4HPRN PRN IV 03/11/24 15:30 03/15/24 08:04 2 MG Oxycodone/ Acetaminophen 2 tab Q6HP PRN PO 03/12/24 14:15 03/14/24 03:22 2 TAB Morphine Sulfate 2 mg Q6HPRN PRN IV 03/12/24 14:15 03/14/24 09:18 2 MG Levothyroxine Sodium 75 mcg QAM@0600 PO 03/13/24 06:00 03/15/24 05:14 75 MCG Gabapentin 200 mg TID PO 03/13/24 14:00 03/15/24 05:14 200 MG Laboratory Results Laboratory Tests 03/12/24 06:46 Urinalysis Test 03/11/24 15:40 Urine Color Light-yellow (Yellow) Urine Clarity Clear (Clear) Urine pH 5.5 (5.0-9.0) Urine Specific [place] 1.014 (1.001-1.035) Urine Protein Trace (Negative) H Urine Ketones Negative (Negative) Urine Blood Negative /uL (Negative) Urine Nitrite Negative (Negative) Urine Bilirubin Negative (Negative) Urine Urobilinogen Normal mg/dL (Negative) Urine Leukocyte Esterase Negative /uL (Negative) Urine RBC <1 /hpf (0 - 4) Urine WBC <1 /hpf (0 - 5) Urine Squamous Epithelial Cells Few /hpf (<5) Urine Bacteria None seen /hpf (None Seen) Urine Glucose Normal mg/dL (Normal) Labs and/or images reviewed: Labs reviewed by me, Image(s) reviewed by me Assessment/Plan Assessment/Plan 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 nurse practitioner Jorge Arreola Lumbar radiculopathy, continue Percocet and gabapentin Compression fracture L2 DJD L-spine Acute Exacerbation of chronic low back pain Chronic pain syndrome Chronic kidney disease stage 3 A history of left nephrectomy Obesity Hypothyroidism Time Spent 40 minutes Continue current management Physical therapy ordered Plan discussed with: Patient My Orders Orders - EDUARDO ADRIAN MD Procedure Category Date Status Time Pt Request For Service PT 03/14/24 Logged 14:59 Date of Service: Mar 15, 2024 Billing Provider: EDUARDO ADRIAN MD Common Visit Codes: [id number] INP/OBS CARE(HIGH) EDUARDO ADRIAN MD Mar 15, 2024 12:35
[2024-03-16] VITALS (7 sets, daily range): BP systolic 104–152; BP diastolic 58–77; PULSE 59–66; RESP 16–19; TEMP 97.2–98.5; O2SAT 93–98
--- NOTE | 2024-03-16 09:46 | DVHPN2 ---
Subjective Patient continues to report having pain and paresthesia to right lower extremity. Reviewed: Care Plan, H&P, Labs, Medications Changes from previous H/P or p: No Changes General: Per HPI Eyes: No Pain, No Vision change, No Conjunctivae inflammation, No Eyelid inflammation, No Other, No Redness ENT: No Ear pain, No Ear discharge, No Nose pain, No Nose discharge, No Nose congestion, No Mouth pain, No Mouth swelling, No Throat pain, No Throat swelling, No Other Cardiovascular: No Chest Pain, No Palpitations, No Orthopnea, No Paroxysmal Noc. Dyspnea, No Edema, No Lt Headedness, No Other Respiratory: No Cough, No Dry, No Shortness of breath, No SOB with excertion, No Wheezing, No Hemoptysis, No Pleuritic Pain, No Sputum, No Other Gastrointestinal: Nausea; No Vomiting; Abdominal Pain; No Diarrhea; C onstipation; No Melena, No Hematochezia, No Other Genitourinary: No Dysuria, No Frequency, No Incontinence, No Hematuria, No Retention, No Other Musculoskeletal: No other, No neck pain, No shoulder pain, No arm pain, No back pain, No hand pain; leg pain; No foot pain Skin: No Rash, No Lesions, No Jaundice, No Bruising, No Other Objective Vitals Vital Signs Date Time Temp Pulse Resp B/P (MAP) Pulse Ox O2 Delivery O2 Flow Rate FiO2 03/16/24 08:00 97.5 65 16 116/76 (89) 98 97.5 03/15/24 20:00 Room Air* 0 21 Intake/Output Intake and Output 03/16/24 07:00 Intake Total 1160 ml Output Total 1300 ml Balance -140 ml Intake Oral 1160 ml Output Urine Total 1300 ml General Appearance: Alert, Oriented X3, Cooperative HEENT: Atraumatic, PERRLA Cardiovascular: Normal S1, Normal S2 Abdomen: Normal bowel sounds, Soft, No tenderness Musculoskeletal: Normal sensory function, Weak motor strength RLE Neuro: Normal gait, Normal speech Psych/Mental Status: Mental status NL, Mood NL Medications Current Medications Medications Dose Ordered Sig/Ginger Route Start Time Stop Time Status Last Admin Dose Admin Acetaminophen 500 mg Q4HP PRN PO 03/11/24 14:45 Hold 03/11/24 16:33 500 MG Hydralazine HCl 10 mg Q6HP PRN IV 03/11/24 14:45 Ondansetron HCl 4 mg Q4HP PRN IV 03/11/24 15:30 Docusate Sodium 100 mg BIDPRN PRN PO 03/11/24 15:30 Zinc Sulfate 220 mg DAILY PO 03/12/24 10:00 03/15/24 08:04 220 MG Multivitamins 1 tab DAILY PO 03/12/24 10:00 03/15/24 08:04 1 TAB Acetaminophen 650 mg Q6HP PRN PO 03/11/24 15:30 Morphine Sulfate 2 mg Q4HPRN PRN IV 03/11/24 15:30 03/16/24 04:45 2 MG Oxycodone/ Acetaminophen 2 tab Q6HP PRN PO 03/12/24 14:15 03/14/24 03:22 2 TAB Morphine Sulfate 2 mg Q6HPRN PRN IV 03/12/24 14:15 03/15/24 15:24 2 MG Levothyroxine Sodium 75 mcg QAM@0600 PO 03/13/24 06:00 03/16/24 05:03 75 MCG Gabapentin 400 mg TID PO 03/16/24 14:00 UNV Laboratory Results Laboratory Tests 03/12/24 06:46 Urinalysis Test 03/11/24 15:40 Urine Color Light-yellow (Yellow) Urine Clarity Clear (Clear) Urine pH 5.5 (5.0-9.0) Urine Specific [place] 1.014 (1.001-1.035) Urine Protein Trace (Negative) H Urine Ketones Negative (Negative) Urine Blood Negative /uL (Negative) Urine Nitrite Negative (Negative) Urine Bilirubin Negative (Negative) Urine Urobilinogen Normal mg/dL (Negative) Urine Leukocyte Esterase Negative /uL (Negative) Urine RBC <1 /hpf (0 - 4) Urine WBC <1 /hpf (0 - 5) Urine Squamous Epithelial Cells Few /hpf (<5) Urine Bacteria None seen /hpf (None Seen) Urine Glucose Normal mg/dL (Normal) Labs and/or images reviewed: Labs reviewed by me, Image(s) reviewed by me Assessment/Plan Assessment/Plan Impression: -right lower extremity paresthesia and radiculopathy secondary to lumbar spinal stenosis -primary hypertension -chronic pain syndrome -chronic kidney disease stage IIIB/four -history of left nephrectomy -obesity -hypothyroidism Plan: -events: MRI of the spine reveals severe foraminal stenosis. Patient continues to have pain. Physical therapy reveals she was able to ambulate 30 ft with a walker. Patient reports she has a walker at home. Spinal surgeon has been consulted. -MRI of the lumbar spine : Results reviewed -pain management: Continue current pain management, increase gabapentin to 400 mg p.o. t.i.d. -antihypertensives -thyroid supplementation Total time spent with patient discussing and formulating plan of care: 35 minutes. This medical document was created using an electronic medical record system with [employer] dictation system. Although this document has been carefully reviewed, there may still be some phonetic and typographical errors. These areas are purely typographical due to imperfections of the software programs, and do not reflect any compromise in the patient's medical care. Plan discussed with: Patient, Other (RN) My Orders Orders - DIANE FRANKLIN NP Procedure Category Date Status Time Consultdr. Ronnie CONS 03/16/24 Transmitted [place](Spine) 08:06 Gabapentin Capsule PHA 03/16/24 Logged (Neurontin Capsule) 14:00 Date of Service: Mar 16, 2024 Billing Provider: DIANE FRANKLIN NP Common Visit Codes: [id number] INP/OBS CARE(HIGH) DIANE FRANKLIN NP Mar 16, 2024 09:46
--- NOTE | 2024-03-16 13:18 | DVHINCON2 ---
Consultation - Spinal Surgery Date Seen: Mar 16, 2024 Referring Physician Referring Physician Jorge Arreola History of Present Illness History of Present Illness lady comes in with severe back pain going down the legs with parasthesias in both legs but no weakness no new onset bowel or bladder incontinence no balance trouble no prior treatment for the back she under no circumstances wants any spine surgery Allergies and medications Allergies: Coded Allergies: NO KNOWN ALLERGIES (Unverified , 11/11/18) Home Meds Active Scripts Docusate Sodium (Colace) 100 Mg Cap, 1 CAP PO BID, #60 CAP 2 Refills Prov:JUAN DOUGLAS MD 08/09/22 Hydrocodone-Acetaminophen (Hydrocodone Bitartrate/AC 5-325 mg) 1 Tab Tab, 1 TAB PO Q6HP PRN, #30 TAB Prov:JUAN DOUGLAS MD 08/09/22 Ondansetron (Zofran) 4 Mg Tab, 4 MG PO Q4HP PRN, #30 TAB Prov:JUAN DOUGLAS MD 08/09/22 Reported Medications B-Complex W/ C & Folic Acid ([facility]) Tab, 1 TAB PO DAILY for 30 Days, #30 03/12/24 Fluticasone Propionate (Nasal) (Fluticasone Propionate Na) 50 Mcg/Act Spr, 1 SPRAY EACHNOSTRI BID for 30 Days, #16 03/12/24 Oxycodone W/ Acetaminophen (Apap/Oxycodone) 1 Tab Tab, 1 TAB PO Q8HR for 30 Days, #90 03/12/24 Pregabalin (Lyrica) 75 Mg Cap, 1 CAP PO Q12HR for 30 Days, #60 03/12/24 Losartan Potassium (Losartan Potassium) 50 Mg Tab, 1 TAB PO DAILY for 100 Days, #100 03/12/24 Furosemide (Furosemide) 40 Mg Tab, 1 TAB PO QAM PRN for 30 Days, #30 03/12/24 Ferrous Sulfate (Ferosul) 325 Mg Tab, 1 TAB PO 3X/WEEK for 84 Days, #36 03/12/24 Clonazepam (Clonazepam) 0.5 Mg Tab, 1 TAB PO BIDPRN for 88 Days, #176 03/12/24 Carbamazepine (Carbamazepine) 200 Mg Tab, 1 TAB PO BID for 90 Days, #180 11/28/24 Oxycodone Hcl (OxyCONTIN ER Tablet) 10 Mg Tb, 1 TAB PO BID, #60 TAB 03/12/24 Omeprazole ([facility] Omeprazole Odt) 20 Mg Tab, 1 TAB PO BID 08/03/22 Montelukast Sodium (MONTELUKAST SODIUM) 10 Mg Tab, 1 TAB PO DAILY for 100 Days, #100 08/03/22 Atorvastatin Calcium (ATORVASTATIN CALCIUM) 40 Mg Tab, 1 TAB PO DAILY, #30 TAB 5 Refills 06/15/18 Amlodipine Besylate (Amlodipine Besylate) 10 Mg Tab, 1 TAB PO DAILY, #30 TAB 5 Refills 06/15/18 Levothyroxine Sodium (Levothyroxine Sodium) 50 Mcg Tab, 75 MCG PO QAM for 30 Days, MCG 01/25/17 Venlafaxine Hydrochloride (Venlafaxine Hcl) 75 Mg Tab, 200 MG PO DAILY, TAB 01/25/17 Discontinued Reported Medications Carbamazepine (CARBAMAZEPINE ER) Unknown Strength Cap, PO BID, CAP 01/25/17 Review of systems Review of Systems: HEENT:Normal, GI:Normal, :Normal, MSK:Abnormal Examination Vital signs Vital Signs Date Time Temp Pulse Resp B/P (MAP) Pulse Ox O2 Delivery O2 Flow Rate FiO2 03/16/24 10:43 72 16 122/68 03/16/24 08:00 Room Air* 0 21 03/16/24 08:00 97.5 98 97.5 Medications Current Medications Medications (Trade) Dose Ordered Sig/Ginger Route PRN Reason Start Time Stop Time Status Last Admin Gabapentin (Neurontin Capsule) 400 mg TID PO 03/16/24 14:00 Laboratory PATIENT: DONTRELL COTTON ACCT: [id number] UNIT: [id number] : 1950 LOC: [facility] ROOM / BED: [address] [place] [address] AGE / SEX: 74 / F ADM STATUS: ADM IN SERVICE 0000 ORDERING PHYSICIAN: DIANE ARREOLA NP PROCEDURE(s): MSL - LUMBAR SPINE WO CONTRAST REASON: SEVERE PARESTHESIA AND RADICULOPATHY ORDER NUMBER(s): [id number], ACCESSION NUMBER(s): [id number] CLINICAL INFORMATION: 74 years old, Female; SEVERE PARESTHESIA AND RADICULOPATHY. TECHNIQUE: Multisequence multiplanar MRI images of the lumbar spine were obtained without contrast. COMPARISON: None INTERPRETATION: Vertebral body alignment is within normal limits. Chronic compression fracture of the L2 vertebral body with up to 50% loss of height. Prominent Schmorl's node at the superior endplate of L2 also noted. Posterior elements are intact. Prominent intraosseous hemangioma in the anterior aspect of the L4 vertebral body. Visualized spinal cord and cauda equina are within normal limits. The conus medullaris is appropriate in signal at the L1-L2 level. Moderate fatty atrophy in the paraspinal musculature of the lumbosacral spine. Postsurgical changes of prior left nephrectomy incidentally noted. L1-L2: Disc desiccation. Mild disc bulge small bilateral foraminal disc protrusions. There is mild spinal canal stenosis, predominantly due to congenital spinal canal narrowing. Facet hypertrophy and encroachment of the neural foramina by the disc protrusions contributes to moderate to severe bilateral neural foraminal stenoses. L2-L3: Disc desiccation with diffuse disc bulge superimposed on congenital spinal canal narrowing causing moderate spinal canal stenosis and partial effacement of the lateral recesses. Facet hypertrophy and encroachment of the neural foramina by the disc bulge contributes to severe bilateral neural foraminal stenoses, right slightly greater than left. L3-L4: Disc desiccation with diffuse disc bulge superimposed on congenital spinal canal narrowing causing moderate spinal canal stenosis and partial effacement of the lateral recesses. Facet hypertrophy and encroachment of the neural foramina by the disc bulge contributes to severe bilateral neural foraminal stenoses, right greater than left. L4-L5: Disc desiccation with diffuse disc bulge superimposed on congenital spinal canal narrowing causing moderate spinal canal stenosis and partial effacement of the lateral recesses. Facet hypertrophy with severe left and moderate to severe right neural foraminal stenoses. L5-S1: Disc desiccation with diffuse disc bulge mildly flattening the ventral aspect of the thecal sac. No significant spinal canal stenosis. Facet hypertrophy and encroachment of the neural foramina by the disc bulge contribut es to severe bilateral neural foraminal stenoses. IMPRESSION: 1. Chronic compression fracture of the L2 vertebral body. 2. Degenerative disc disease and facet disease in the lumbar spine with associated spinal canal, subarticular, and neural foraminal stenoses as detailed above. 3. There is a degree of congenital spinal canal narrowing contributing to the spinal canal stenoses. 4. Additional findings as detailed above. ATED BY: ABHINAV ZHONG DO DICTATED DATE/TIME: 03/14/241046 SIGNED BY: ABHINAV ZHONG DO SIGNED DATE/TIME: 03/14/241046 CC: Labs Test 03/12/24 06:46 03/11/24 15:40 03/11/24 12:37 Range/Units White Blood Count 3.7 L 4.4-10.8 10^3/uL Red Blood Count 3.10 L 4.0-5.20 10^6/uL Hemoglobin 9.4 L 12.2-16.2 g/dL Hematocrit 27.8 #L 36.0-46.0 % Mean Corpuscular Volume 89.8 80.0-100.0 fL Mean Corpuscular Hemoglobin 30.3 28.0-32.0 pg Mean Corpuscular Hemoglobin Concent 33.8 32.0-36.0 g/dL Red Cell Distribution Width 15.8 H 11.8-14.3 % Platelet Count 144 140-450 10^3/uL Mean Platelet Volume 7.2 6.9-10.8 fL Neutrophils (%) (Auto) 41.3 37.0-80.0 % Lymphocytes (%) (Auto) 49.1 10.0-50.0 % Monocytes (%) (Auto) 8.7 0.0-12.0 % Eosinophils (%) (Auto) 0.1 0.0-7.0 % Basophils (%) (Auto) 0.8 0.0-2.0 % Neutrophils # (Auto) 1.5 L 1.6-8.6 10 ^3/uL Lymphocytes # (Auto) 1.8 0.4-5.4 10 ^3/uL Monocytes # (Auto) 0.3 0-1.3 10 ^3/uL Eosinophils # (Auto) 0 0-0.8 10 ^3/uL Basophils # (Auto) 0 0-0.2 10 ^3/uL Nucleated Red Blood Cells 0.1 % Sodium Level 143 136-145 mmol/L Potassium Level 4.2 3.5-5.1 mmol/L Chloride Level 111 H 98-107 mmol/L Carbon Dioxide Level 21 20-31 mmol/L Anion Gap 11 5-15 Blood Urea Nitrogen 31 H 9-23 mg/dL Creatinine 3.04 H 0.550-1.02 mg/dL Glomerular Filtration Rate Calc 16 >90 mL/min BUN/Creatinine Ratio 10.2 10.0-20.0 Serum Glucose 89 74-106 mg/dL Calcium Level 9.7 8.7-10.4 mg/dL Total Bilirubin 0.7 0.2-1.0 mg/dL Aspartate Amino Transferase (AST) < 8 L 13-40 U/L Alanine Aminotransferase (ALT) < 9 7-40 U/L Alkaline Phosphatase 63 46-116 U/L Total Protein 5.9 5.7-8.2 g/dL Albumin 3.8 3.2-4.8 g/dL Thyroid Stimulating Hormone (TSH) 3.10 0.55-4.78 uIU/mL Urine Color Light-yellow Yellow Urine Clarity Clear Clear Urine pH 5.5 5.0-9.0 Urine Specific [place] 1.014 1.001-1.035 Urine Protein Trace H Negative Urine Ketones Negative Negative Urine Blood Negative Negative /uL Urine Nitrite Negative Negative Urine Bilirubin Negative Negative Urine Urobilinogen Normal Negative mg/dL Urine Leukocyte Esterase Negative Negative /uL Urine RBC <1 0 - 4 /hpf Urine WBC <1 0 - 5 /hpf Urine Squamous Epithelial Cells Few <5 /hpf Urine Bacteria None seen None Seen /hpf Urine Glucose Normal Normal mg/dL Differential Total Cells Counted 100.0 100 Neutrophils % (Manual) 72 37.0-80.0 Band Neutrophils % (Manual) 0 Lymphocytes % (Manual) 24 10.0-50.0 Monocytes % (Manual) 2 0-12 Eosinophils % (Manual) 2 0-7 Basophils % (Manual) 0 0.0-2.0 Metamyelocytes % (manual) 0 Myelocytes % (Manual) 0 Promyelocytes % (Manual) 0 Blast Cells % (Manual) 0 Reactive Lymphocytes 0 Platelet Estimate Adequate Lipase 27 12-53 U/L Examination: GENERAL:Normal, HEENT:Normal, NECK:Normal, LUNGS:Normal, CVS:Normal, ABDOMEN:Normal, ABDOMEN:Abnormal, MSK:Normal, SKIN:Normal, NEURO:Normal, :Normal Problem List/Assessment/Plan Problems: (1) Sciatica Assessment and Plan Lumbar spinal stenosis/spondylolisthesis with back pain only Pt. wants to optimize conservative treatment and I agree She can be discharged with a medrol dospak and f/u with her primary care to set up p.t. Plan discussed with Plan discussed with: Patient ASHLEY GONZALEZ MD Mar 16, 2024 13:18
[2024-03-16] MEDS ORDERED: GABAPENTIN 100 MG CAP PO SCH (14:00)
[2024-03-16] MEDS: GABAPENTIN 400 MG CAP PO SCH (14:37)
[2024-03-17 01:00] VITALS: BP 101/59; PULSE 60; RESP 17; TEMP 98.2; O2SAT 94
[2024-03-17 05:00] VITALS: BP 110/62; PULSE 58; RESP 17; TEMP 98; O2SAT 97
[2024-03-17 09:02] VITALS: BP 120/80; PULSE 65; RESP 17; TEMP 97.7; O2SAT 99
[2024-03-17 13:06] VITALS: BP 119/68; PULSE 64; RESP 19; TEMP 97.6; O2SAT 99
[2024-03-17] MEDS ORDERED: METH4PAK PO (14:23)
[2024-03-17] MEDS ORDERED: GABA-1251 PO (14:23)
[2024-03-17 16:34] VITALS: BP 110/83; PULSE 64; RESP 19; TEMP 97.6; O2SAT 99
--- NOTE | 2024-03-17 16:35 | DVHDS2 ---
Discharge Summary Date of Admission Mar 11, 2024 at 15:19 Date of Discharge: Mar 17, 2024 Admitting Diagnosis Intractable abdominal pain Labs/Diagnostic Data: Laboratory Results Test 03/12/24 06:46 03/11/24 15:40 03/11/24 12:37 White Blood Count 3.7 10^3/uL (4.4-10.8) Red Blood Count 3.10 10^6/uL (4.0-5.20) Hemoglobin 9.4 g/dL (12.2-16.2) Hematocrit 27.8 % (36.0-46.0) Mean Corpuscular Volume 89.8 fL (80.0-100.0) Mean Corpuscular Hemoglobin 30.3 pg (28.0-32.0) Mean Corpuscular Hemoglobin Concent 33.8 g/dL (32.0-36.0) Red Cell Distribution Width 15.8 % (11.8-14.3) Platelet Count 144 10^3/uL (140-450) Mean Platelet Volume 7.2 fL (6.9-10.8) Neutrophils (%) (Auto) 41.3 % (37.0-80.0) Lymphocytes (%) (Auto) 49.1 % (10.0-50.0) Monocytes (%) (Auto) 8.7 % (0.0-12.0) Eosinophils (%) (Auto) 0.1 % (0.0-7.0) Basophils (%) (Auto) 0.8 % (0.0-2.0) Neutrophils # (Auto) 1.5 10 ^3/uL (1.6-8.6) Lymphocytes # (Auto) 1.8 10 ^3/uL (0.4-5.4) Monocytes # (Auto) 0.3 10 ^3/uL (0-1.3) Eosinophils # (Auto) 0 10 ^3/uL (0-0.8) Basophils # (Auto) 0 10 ^3/uL (0-0.2) Nucleated Red Blood Cells 0.1 % Sodium Level 143 mmol/L (136-145) Potassium Level 4.2 mmol/L (3.5-5.1) Chloride Level 111 mmol/L (98-107) Carbon Dioxide Level 21 mmol/L (20-31) Anion Gap 11 (5-15) Blood Urea Nitrogen 31 mg/dL (9-23) Creatinine 3.04 mg/dL (0.550-1.02) Glomerular Filtration Rate Calc 16 mL/min (>90) BUN/Creatinine Ratio 10.2 (10.0-20.0) Serum Glucose 89 mg/dL (74-106) Calcium Level 9.7 mg/dL (8.7-10.4) Total Bilirubin 0.7 mg/dL (0.2-1.0) Aspartate Amino Transferase (AST) < 8 U/L (13-40) Alanine Aminotransferase (ALT) < 9 U/L (7-40) Alkaline Phosphatase 63 U/L (46-116) Total Protein 5.9 g/dL (5.7-8.2) Albumin 3.8 g/dL (3.2-4.8) Thyroid Stimulating Hormone (TSH) 3.10 uIU/mL (0.55-4.78) Urine Color Light-yellow (Yellow) Urine Clarity Clear (Clear) Urine pH 5.5 (5.0-9.0) Urine Specific [place] 1.014 (1.001-1.035) Urine Protein Trace (Negative) Urine Ketones Negative (Negative) Urine Blood Negative /uL (Negative) Urine Nitrite Negative (Negative) Urine Bilirubin Negative (Negative) Urine Urobilinogen Normal mg/dL (Negative) Urine Leukocyte Esterase Negative /uL (Negative) Urine RBC <1 /hpf (0 - 4) Urine WBC <1 /hpf (0 - 5) Urine Squamous Epithelial Cells Few /hpf (<5) Urine Bacteria None seen /hpf (None Seen) Urine Glucose Normal mg/dL (Normal) Differential Total Cells Counted 100.0 (100) Neutrophils % (Manual) 72 (37.0-80.0) Band Neutrophils % (Manual) 0 Lymphocytes % (Manual) 24 (10.0-50.0) Monocytes % (Manual) 2 (0-12) Eosinophils % (Manual) 2 (0-7) Basophils % (Manual) 0 (0.0-2.0) Metamyelocytes % (manual) 0 Myelocytes % (Manual) 0 Promyelocytes % (Manual) 0 Blast Cells % (Manual) 0 Reactive Lymphocytes 0 Platelet Estimate Adequate Lipase 27 U/L (12-53) Other Laboratory Tests 03/12/24 06:46 Brief Hx & Hospital Course: History of Present Illness Bhavna Randolph is a 74YO F with pmHx of neuropathy, HTN, HLD, thyroid disease s/p thyroidectomy, anxiety, chf, asthma, s/p left nephrectomy, and constipation who presents to the ED for RLE pain that radiates to her RUQ abdomen this am between [id number]. Upon examination patient reports nausea with no vomiting and RLE pain is 10/10 burning. Patient states she is compliant with her medications and she is taking opioids for chronic pain. Patient denies vomiting, chest pain, shortness of breath, fever, chills, and recent trauma/injury. Course of hospitalization: Patient was medical records were reviewed, which revealed that she had a CT scan of her lumbar spine in October of the year. Given the noted irregularities, MRI of the spine was performed which revealed multiple areas of nerve impingement with stenosis. Spinal surgery was consulted. Patient was placed on gabapentin as well as pain management. Physical therapy was able to ambulate the patient. The patient is requesting nonsurgical intervention at this time. Patient will be discharged home with Medrol Dosepak and to follow up with her PCP in 1-2 weeks. Patient will also be given a prescription for gabapentin 400 mg 3 times a day. Patient was agreeable with discharge plan. All questions answered Physical examination General: Alert and Oriented x3. No acute distress. Well-nourished. Obesity Eyes: EOMI. Anicteric. HENT: Moist mucous membranes. Lungs: Clear to auscultation bilaterally. No accessory muscle use. Cardiovascular: Regular rate and rhythm. No murmur. No JVD. Abdomen: Soft, non-tender and non-distended. No palpable masses. Extremities: No edema. Non-tender. Skin: No rashes or lesions. Warm. Neurologic: No focal neurological deficits. CN II-XII grossly intact, but not individually tested. Psychiatric: Cooperative. Appropriate mood and affect. Total time spent with patient discussing and formulating plan of care: 35 minutes. This medical document was created using an electronic medical record system with [employer] dictation system. Although this document has been carefully reviewed, there may still be some phonetic and typographical errors. These areas are purely typographical due to imperfections of the software programs, and do not reflect any compromise in the patient's medical care. Consults/Reason for consult Spine surgery: Lumbar radiculopathy Condition at Discharge: Poor Final Diagnosis/Problems List Lumbar radiculopathy Secondary Diagnosis: -right lower extremity paresthesia and radiculopathy secondary to lumbar spinal stenosis -primary hypertension -chronic pain syndrome -chronic kidney disease stage IIIB/four -history of left nephrectomy -obesity -hypothyroidism Discharge Disposition: Home Discharge Instruct/Medications Diet: Cardiac 2g Na,low cholest Activity: No Restrictions, As Tolerated Follow Up/Referral: Follow up with PCP in 1-2 weeks Medications: Continue all previous home medications Gabapentin 400 mg 3 times a day Medrol Dosepak 36 Discharge Statement: "Patient was advised to return to the ER or call 911 if any headaches, dizziness, shortness of breath, chest pain, abdominal pain, bleeding, fevers, or worsening of medical condition. Patient was counseled about treatment plan, medications, possible side effects, patientverbalized understanding. All questions were answered to the best of my ability. This discharge took greater then 30 minutes in planning, reviewing documentation, counseling the patient, and discussing with other team members." ASSESSMENT ASSESSMENT Assessment Lumbar radiculopathy Date of Service: Mar 17, 2024 Billing Provider: DIANE FRANKLIN NP Common Visit Codes: 11036-IXB/OBS DISCH DAY >30min DIANE FRANKLIN NP Mar 17, 2024 16:35
== END 2024-03-17 17:15 | disposition home or self-care (01) | DRG 552 ==
LOC: ER 12:10 → EDBD 12:10 → OVERFLOW 15:19 → WEST WING 03-12 01:58
PROVIDERS: ATTEND Nurse Practitioner Acute Care
DX: M48.061 Spinal stenosis, lumbar region without neurogenic claudication (principal); I13.0 Hypertensive heart and chronic kidney disease with heart failure and stage 1 through stage 4 chronic kidney disease, or unspecified chronic kidney disease; M48.56XA Collapsed vertebra, not elsewhere classified, lumbar region, initial encounter for fracture; G89.4 Chronic pain syndrome; E66.9 Obesity, unspecified; E78.5 Hyperlipidemia, unspecified; G62.9 Polyneuropathy, unspecified; I50.9 Heart failure, unspecified; J45.909 Unspecified asthma, uncomplicated; N18.32 Chronic kidney disease, stage 3b; K59.00 Constipation, unspecified; F41.9 Anxiety disorder, unspecified; M43.16 Spondylolisthesis, lumbar region; M47.26 Other spondylosis with radiculopathy, lumbar region; Z79.891 Long term (current) use of opiate analgesic; Z90.5 Acquired absence of kidney; Z90.710 Acquired absence of both cervix and uterus; Z79.899 Other long term (current) drug therapy; Z68.34 Body mass index [BMI] 34.0-34.9, adult
CPT/HCPCS: 36415; 72148; 74176; 80053; 81001; 83690; 84443; 85007; 85025; 85027; 93005; 96374; 96375; 97110; 97116; 97162; 97530; G0378; J2405

== ENCOUNTER 2024-07-05 13:51 | Emergency (ER) | payer OTHER ==
[~2024-07-05] VITALS: Ht 162.6 cm; Wt 162.0 kg
[~2024-07-05 13:51] MED LIST changes: -ATOR40TA52 PO; -B-CO-6 PO; -CARB300C9 PO; -CLON0.5T3 PO; +DICL50TA4 PO; +FEBU40TA6 PO; -FURO40TA4 PO; +GABA-1251 PO; +METH4PAK PO; +OXY10CRT PO
--- NOTE | 2024-07-05 14:15 | ED.PDOC ---
History of Present Illness HPI Comments 74-year-old female presents with a chief complaint of joint pain and muscle pain x 2 months. Patients that her bilateral hips are hurting and the pain radiates down to her legs. Patient states that she receives Percocet's from her Pain Management doctor and that "they are not helping me". Patient endorses a fall in January 2024. Patient is ambulatory with cane. Time Seen by MD: 14:05 Primary Care Provider: DR KEANE Reviewed Notes: Nurses Notes, Medications, Allergies Allergies: Coded Allergies: NO KNOWN ALLERGIES (Unverified , 11/11/18) Home Meds Active Scripts Gabapentin (Gabapentin) 400 Mg Cap, 400 MG PO TID for 30 Days, #120 CAP 1 Refill Prov:DIANE FRANKLIN [employer] TECH[employer]ICIAN 03/17/24 Methylprednisolone (Medrol Dosepak) 4 Mg Gerald, 4 MG PO UD, #21 TAB UAD Prov:DIANE FRANKLIN [employer]CHO[employer] TECHNICIAN 03/17/24 Docusate Sodium (Colace) 100 Mg Cap, 1 CAP PO BID, #60 CAP 2 Refills Prov:JUAN DOUGLAS MD 08/09/22 Hydrocodone-Acetaminophen (Hydrocodone Bitartrate/AC 5-325 mg) 1 Tab Tab, 1 TAB PO Q6HP PRN, #30 TAB Prov:JUAN DOUGLAS MD 08/09/22 Ondansetron (Zofran) 4 Mg Tab, 4 MG PO Q4HP PRN, #30 TAB Prov:JUAN DOUGLAS MD 08/09/22 Reported Medications B-Complex W/ C & Folic Acid ([facility] Rx) Tab, 1 TAB PO DAILY for 30 Days, #30 03/12/24 Fluticasone Propionate (Nasal) (Fluticasone Propionate Na) 50 Mcg/Act Spr, 1 SPRAY EACHNOSTRI BID for 30 Days, #16 03/12/24 Oxycodone W/ Acetaminophen (Apap/Oxycodone) 1 Tab Tab, 1 TAB PO Q8HR for 30 Days, #90 03/12/24 Pregabalin (Lyrica) 75 Mg Cap, 1 CAP PO Q12HR for 30 Days, #60 03/12/24 Losartan Potassium (Losartan Potassium) 50 Mg Tab, 1 TAB PO DAILY for 100 Days, #100 03/12/24 Furosemide (Furosemide) 40 Mg Tab, 1 TAB PO QAM PRN for 30 Days, #30 03/12/24 Ferrous Sulfate (Ferosul) 325 Mg Tab, 1 TAB PO 3X/WEEK for 84 Days, #36 03/12/24 Clonazepam (Clonazepam) 0.5 Mg Tab, 1 TAB PO BIDPRN for 88 Days, #176 03/12/24 Carbamazepine (Carbamazepine) 200 Mg Tab, 1 TAB PO BID for 90 Days, #180 03/12/24 Oxycodone Hcl (OxyCONTIN ER Tablet) 10 Mg Tb, 1 TAB PO BID, #60 TAB 03/12/24 Omeprazole ([facility]vs Omeprazole Odt) 20 Mg Tab, 1 TAB PO BID 08/03/22 Montelukast Sodium (MONTELUKAST SODIUM) 10 Mg Tab, 1 TAB PO DAILY for 100 Days, #100 08/03/22 Atorvastatin Calcium (ATORVASTATIN CALCIUM) 40 Mg Tab, 1 TAB PO DAILY, #30 TAB 5 Refills 06/15/18 Amlodipine Besylate (Amlodipine Besylate) 10 Mg Tab, 1 TAB PO DAILY, #30 TAB 5 Refills 06/15/18 Levothyroxine Sodium (Levothyroxine Sodium) 50 Mcg Tab, 75 MCG PO QAM for 30 Days, MCG 01/25/17 Venlafaxine Hydrochloride (Venlafaxine Hcl) 75 Mg Tab, 200 MG PO DAILY, TAB 01/25/17 Information Source: Patient Mode of Arrival: Ambulatory Severity: Moderate Timing: Days Duration: Intermittent Prehospital treatment: None Past Medical History PAST MEDICAL HISTORY: Asthma, CHF, High Lipids, HTN Surgical History: 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 Family History Family History: Unknown Social History Smoker: Non-Smoker Alcohol: Denies ETOH Use Drugs: Denies Drug Use Lives In: Home Constitutional: denies: chills, diaphoresis, fatigue, fever, malaise, sweats, weakness, others EENTM: denies: blurred vision, double vision, ear bleeding, ear discharge, ear drainage, ear pain, ear ringing, eye pain, eye redness, hearing loss, mouth pain, mouth swelling, nasal discharge, nose bleeding, nose congestion, nose pain, photophobia, tearing, throat pain, throat swelling, voice changes, others Respiratory: denies: cough, hemoptysis, orthopnea, SOB at rest, shortness of breath, SOB with excertion, stridor, wheezing, others Cardiovascular: denies: chest pain, dizzy spells, diaphoresis, Dyspnea on exertion, edema, irregular heart beat, left arm pain, lightheadedness, palpitations, PND, syncope, others Gastrointestinal: denies: abdomen distended, abdominal pain, blood streaked bowels, constipated, diarrhea, dysphagia, difficulty swallowing, hematemesis, melena, nausea, poor appetite, poor fluid intake, rectal bleeding, rectal pain, vomiting, others Genitourinary: denies: abnormal vagina bleeding, burning, dyspareunia, dysuria, flank pain, frequency, hematuria, incontinence, pain, , vagina discharge, urgency, others Neurological: denies: dizziness, fainting, headache, left sided numbness, left sided weakness, numbness, paresthesia, pre-existing deficit, right sided nu mbness, right sided weakness, seizure, speech problems, tingling, tremors, weakness, others Musculoskeletal: reports: joint pain, muscle pain; denies: back pain, gout, joint swelling, muscle stiffness, neck pain, others Integumetry: denies: bruises, change in color, change in hair/nails, dryness, laceration, lesions, lumps, rash, wounds, others Allergic/Immunocompromised: denies: Difficulty Healing, Frequent Infections, Hives, Itching, others Hematologic/Lymphatic: denies: anemia, blood clots, easy bleeding, easy bruising, swollen glands, others Endocrine: denies: excessive hunger, excessive sweating, excessive thirst, excessive urination, flushing, intolerance to cold, intolerance to heat, unexplained weight gain, unexplained weight loss, others Psychiatric: denies: anxiety, bipolar disorder, depression, hopeless, panic disorder, schizophrenia, sleepless, suicidal, others All Other Systems: Reviewed and Negative Physical Exam General Appearance: Mild Distress HEENT: Normal ENT Inspection, Pharynx Normal, TMs Normal Neck: Full Range of Motion, Non-Tender, Normal, Normal Inspection Respiratory: Chest Non-Tender, Lungs Clear, No Accessory Muscle Use, No Respiratory Distress, Normal Breath Sounds Cardiovascular: No Edema, No JVD, No Murmur, No Gallop, Normal Peripheral Pulses, Regular Rate/Rhythm Breast Exam: Deferred Gastrointestinal: No Organomegaly, Non Tender, No Pulsatile Mass, Normal Bowel Sounds, Soft Genitalia: Deferred Pelvic: Deferred Rectal: Deferred Extremities: No calf tenderness, Normal capillary refill, Normal inspection, Normal range of motion, Non-tender, No pedal edema Musculoskeletal : Apperance: Normal Neurologic: Alert, wares sorter II-XII nml as Tested, No Motor Deficits, Normal Affect, Normal Mood, No Sensory Deficits Cerebellar Function: Normal Reflexes: Normal Skin: Dry, Normal Color, Warm Lymphatic: No Adenopathy Was a procedure done? Was a procedure done?: No Differential Dx Considerations may include: Fracture, strain, contusion X-Ray, Labs, Meds, VS Vital Signs Date Time Temp Pulse Resp B/P (MAP) Pulse Ox O2 Delivery O2 Flow Rate FiO2 07/05/24 14:28 74 16 139/76 07/05/24 14:18 74 16 97 Room Air* 0 21 07/05/24 14:18 74 16 139/76 (97) 97 07/05/24 14:04 97.1 109 16 146/81 (102) 98 97.1 Current Medications Medications (Trade) Dose Ordered Sig/Ginger Route Start Time Stop Time Status Last Admin Hydromorphone HCl (Dilaudid Injection) 1 mg ONCE ONCE IM 07/05/24 14:15 07/05/24 14:16 DC 07/05/24 14:28 Ondansetron HCl (Zofran) 4 mg ONCE ONCE IM 07/05/24 14:15 07/05/24 14:16 DC 07/05/24 14:27 The patient states that she is going to follow up with the pain management The patient was given an injection of Dilaudid and Zofran The patient states that she did receive some relief The patient will return to the emergency department's the condition worsens Time of 1ST Reevaluation: 14:35 Reevaluation 1ST: Unchanged Patient Education/Counseling: Diagnosis, Treatment, Prognosis, Need For Follow Up Family Education/Counseling: No Family Present Departure 1 Departure Time of Disposition: 14:44 Impression: Primary Impression: Hip pain Qualified Codes: M25.551 - Pain in right hip; M25.552 - Pain in left hip Additional Impression: Osteoarthritis Qualified Codes: M15.9 - Polyosteoarthritis, unspecified Disposition: 01 HOME / SELF CARE / HOMELESS Condition: Fair Discharged With: Self Critical Care Note Critical Care Time?: No Stability Stability form required: No Heart Score Heart Score: Heart Score Response (Comments) Value History N/A 0 EKG N/A 0 Age N/A 0 Risk Factors N/A 0 Troponin N/A 0 Total 0 I personally scribed for MAHESH ALANIS MD ([email or web address]) on 07/05/24 at 14:15. Electronically submitted by Lex Hunt ([email or web address]). MAHESH ALANIS MD Jul 05, 2024 14:15
[2024-07-05 14:18] VITALS: PULSE 74; RESP 16; O2SAT 97
[2024-07-05] MEDS: ONDANSETRON HCL 4 MG/2 ML VIAL IM ONE (14:27)
[2024-07-05] MEDS: HYDROmorphone HCL 2 MG/ML VL/or syr IM ONE (14:28)
[2024-07-05 15:04] VITALS: BP 141/86; PULSE 68; RESP 16; TEMP 97.9; O2SAT 95
[2024-07-05] MEDS ORDERED: FURO40TA4 PO (16:48)
[2024-07-05] MEDS ORDERED: B-CO-6 PO (16:50)
[2024-07-06] MEDS ORDERED: ATOR40TA52 PO (09:01)
[2024-07-06] MEDS ORDERED: EPOE20005 SC (12:12)
== END 2024-07-05 15:04 | disposition home or self-care (01) ==
LOC: ER 13:51
DX: M25.551 Pain in right hip (principal); M25.552 Pain in left hip; M19.90 Unspecified osteoarthritis, unspecified site; I11.0 Hypertensive heart disease with heart failure; I50.9 Heart failure, unspecified; J45.909 Unspecified asthma, uncomplicated; Z79.899 Other long term (current) drug therapy; Z90.710 Acquired absence of both cervix and uterus
CPT/HCPCS: 82947; 96372; 99284; J1171; J2405

== ENCOUNTER 2024-07-06 13:47 | Inpatient (IN) | payer OTHER ==
[~2024-07-06] VITALS: Ht 162.6 cm; Wt 83.7 kg
[~2024-07-06 13:47] MED LIST changes: +ATOR40TA52 PO; +B-CO-6 PO; +EPOE20005 SC; +FURO40TA4 PO
--- NOTE | 2024-07-06 14:01 | ED.PDOC ---
General HPI Comments 74 year old female brought in by EMS presents to the ED with a chief complaint of RT flank pain onset 3 days. Patient states she began experiencing RT flank pain radiating to back 3 days ago, pain worsen today, rates pain 10/10. Patient states she had LT kidney removed. Patient also noticed urinary frequency with no pain. PMHx HTN, CHF, asthma, HLD. Denies dysuria, hematuria, dizziness, nausea, vomiting, diarrhea, headache, chest pain, shortness of breath. No other symptoms or modifying factors present at this time. Chief Complaint: Flank Pain Time Seen by MD: 13:42 Primary Care Provider: UNKNOWN Reviewed notes: Medications, Allergies Allergies: Coded Allergies: NO KNOWN ALLERGIES (Unverified , 11/11/18) Home Meds Active Scripts Gabapentin (Gabapentin) 400 Mg Cap, 400 MG PO TID for 30 Days, #120 CAP 1 Refill Prov:DIANE FRANKLIN [employer] SALES REPRESENTATIVE 03/17/24 Methylprednisolone (Medrol Dosepak) 4 Mg Gerald, 4 MG PO UD, #21 TAB UAD Prov:DIANE FRANKLIN [employer]CT SALES REPRESENTATIVE 03/17/24 Docusate Sodium (Colace) 100 Mg Cap, 1 CAP PO BID, #60 CAP 2 Refills Prov:JUAN DOUGLAS MD 08/09/22 Hydrocodone-Acetaminophen (Hydrocodone Bitartrate/AC 5-325 mg) 1 Tab Tab, 1 TAB PO Q6HP PRN, #30 TAB Prov:JUAN DOUGLAS MD 08/09/22 Ondansetron (Zofran) 4 Mg Tab, 4 MG PO Q4HP PRN, #30 TAB Prov:JUAN DOUGLAS MD 08/09/22 Reported Medications B-Complex W/ C & Folic Acid ([facility]) Tab, 1 TAB PO DAILY for 30 Days, #30 03/12/24 Fluticasone Propionate (Nasal) (Fluticasone Propionate Na) 50 Mcg/Act Spr, 1 SPRAY EACHNOSTRI BID for 30 Days, #16 03/12/24 Oxycodone W/ Acetaminophen (Apap/Oxycodone) 1 Tab Tab, 1 TAB PO Q8HR for 30 Days, #90 03/12/24 Pregabalin (Lyrica) 75 Mg Cap, 1 CAP PO Q12HR for 30 Days, #60 03/12/24 Losartan Potassium (Losartan Potassium) 50 Mg Tab, 1 TAB PO DAILY for 100 Days, #100 03/12/24 Furosemide (Furosemide) 40 Mg Tab, 1 TAB PO QAM PRN for 30 Days, #30 03/12/24 Ferrous Sulfate (Ferosul) 325 Mg Tab, 1 TAB PO 3X/WEEK for 84 Days, #36 03/12/24 Clonazepam (Clonazepam) 0.5 Mg Tab, 1 TAB PO BIDPRN for 88 Days, #176 03/12/24 Carbamazepine (Carbamazepine) 200 Mg Tab, 1 TAB PO BID for 90 Days, #180 03/12/24 Oxycodone Hcl (OxyCONTIN ER Tablet) 10 Mg Tb, 1 TAB PO BID, #60 TAB 03/12/24 Omeprazole ([facility] Omeprazole Odt) 20 Mg Tab, 1 TAB PO BID 08/03/22 Montelukast Sodium (MONTELUKAST SODIUM) 10 Mg Tab, 1 TAB PO DAILY for 100 Days, #100 08/03/22 Atorvastatin Calcium (ATORVASTATIN CALCIUM) 40 Mg Tab, 1 TAB PO DAILY, #30 TAB 5 Refills 06/15/18 Amlodipine Besylate (Amlodipine Besylate) 10 Mg Tab, 1 TAB PO DAILY, #30 TAB 5 Refills 06/15/18 Levothyroxine Sodium (Levothyroxine Sodium) 50 Mcg Tab, 75 MCG PO QAM for 30 Days, MCG 01/25/17 Venlafaxine Hydrochloride (Venlafaxine Hcl) 75 Mg Tab, 200 MG PO DAILY, TAB 01/25/17 Information Source: Patient, Emergency Med Personnel Mode of Arrival: EMS Severity: Moderate Timing: Days Duration: Since onset Prehospital treatment: None Onset: Spontaneous Symptoms: Frequency History of: None Location: (R) Flank Modifying factors: None associated signs and symptoms: Flank Pain, Back Pain, Frequency Past Medical History PAST MEDICAL HISTORY: Asthma, CHF, High Lipids, HTN Surgical History: Hysterectomy [employer] LICENSEE History: No Pertinent [employer] LICENSEE History Family History Family History: Unknown Social History Smoker: Non-Smoker Alcohol: Denies ETOH Use Drugs: Denies Drug Use Lives In: Home Constitutional: denies: chills, diaphoresis, fatigue, fever, malaise, sweats, weakness, others EENTM: denies: blurred vision, double vision, ear bleeding, ear discharge, ear drainage, ear pain, ear ringing, eye pain, eye redness, hearing loss, mouth pain, mouth swelling, nasal discharge, nose bleeding, nose congestion, nose pain, photophobia, tearing, throat pain, throat swelling, voice changes, others Respiratory: denies: cough, hemoptysis, orthopnea, SOB at rest, shortness of breath, SOB with excertion, stridor, wheezing, others Cardiovascular: denies: chest pain, dizzy spells, diaphoresis, Dyspnea on exertion, edema, irregular heart beat, left arm pain, lightheadedness, palpitations, PND, syncope, others Gastrointestinal: denies: abdomen distended, abdominal pain, blood streaked bowels, constipated, diarrhea, dysphagia, difficulty swallowing, hematemesis, melena, nausea, poor appetite, poor fluid intake, rectal bleeding, rectal pain, vomiting, others Genitourinary: reports: flank pain, frequency; denies: abnormal vagina bleeding, burning, dyspareunia, dysuria, hematuria, incontinence, pain, , vagina discharge, urgency, others Neurological: denies: dizziness, fainting, headache, left sided numbness, left sided weakness, numbness, paresthesia, pre-existing deficit, right sided numbness, right sided weakness, seizure, speech problems, tingling, tremors, weakness, others Musculoskeletal: reports: back pain; denies: gout, joint pain, joint swelling, muscle pain, muscle stiffness, neck pain, others Integumetry: denies: bruises, change in color, change in hair/nails, dryness, laceration, lesions, lumps, rash, wounds, others Allergic/Immunocompromised: denies: Difficulty Healing, Frequent Infections, Hives, Itching, others Hematologic/Lymphatic: denies: anemia, blood clots, easy bleeding, easy brui sing, swollen glands, others Endocrine: denies: excessive hunger, excessive sweating, excessive thirst, ex cessive urination, flushing, intolerance to cold, intolerance to heat, unexplained weight gain, unexplained weight loss, others Psychiatric: denies: anxiety, bipolar disorder, depression, hopeless, panic disorder, schizophrenia, sleepless, suicidal, others All Other Systems: Reviewed and Negative Physical Exam General Appearance: Moderate Distress, Normal HEENT: Normal ENT Inspection, Pharynx Normal, TMs Normal Neck: Full Range of Motion, Non-Tender, Normal, Normal Inspection Respiratory: Chest Non-Tender, Lungs Clear, No Accessory Muscle Use, No Respiratory Distress, Normal Breath Sounds Cardiovascular: No Edema, No JVD, No Murmur, No Gallop, Normal Peripheral Pulses, Regular Rate/Rhythm Breast Exam: Deferred Gastrointestinal: No Organomegaly, Non Tender, No Pulsatile Mass, Normal Bowel Sounds, Soft Genitalia: Deferred Pelvic: Deferred Rectal: Deferred Extremities: No calf tenderness, Normal capillary refill, Non-tender, No pedal edema Musculoskeletal : Apperance: Normal Neurologic: Alert, nut cracker II-XII nml as Tested, No Motor Deficits, Normal Affect, Normal Mood, No Sensory Deficits Cerebellar Function: NOT DONE Reflexes: NOT DONE Skin: Dry, Normal Color, Warm Peripheral Pulses: 3+ Radial (R), 3+ Radial (L) Lymphatic: No Adenopathy Was a procedure done? Was a procedure done?: No Differential Diagnosis Kidney stone (Female): Musculoskeletal pain, Urinary obstruction, Urolithiasis X-Ray, Labs, Meds, VS Vital Signs Date Time Temp Pulse Resp B/P (MAP) Pulse Ox O2 Delivery O2 Flow Rate FiO2 07/06/24 14:53 69 20 141/87 07/06/24 13:51 98.0 72 16 141/84 (103) 97 98.0 Lab Test 07/06/24 14:14 Range/Units White Blood Count 4.1 L 4.4-10.8 10^3/uL Red Blood Count 3.35 L 4.0-5.20 10^6/uL Hemoglobin 10.0 L 12.2-16.2 g/dL Hematocrit 29.5 L 36.0-46.0 % Mean Corpuscular Volume 88.2 80.0-100.0 fL Mean Corpuscular Hemoglobin 29.7 28.0-32.0 pg Mean Corpuscular Hemoglobin Concent 33.7 32.0-36.0 g/dL Red Cell Distribution Width 16.1 H 11.8-14.3 % Platelet Count 174 140-450 10^3/uL Mean Platelet Volume 7.2 6.9-10.8 fL Neutrophils (%) (Auto) 53.4 37.0-80.0 % Lymphocytes (%) (Auto) 37.9 10.0-50.0 % Monocytes (%) (Auto) 6.9 0.0-12.0 % Eosinophils (%) (Auto) 0.8 0.0-7.0 % Basophils (%) (Auto) 1.0 0.0-2.0 % Neutrophils # (Auto) 2.2 1.6-8.6 10 ^3/uL Lymphocytes # (Auto) 1.6 0.4-5.4 10 ^3/uL Monocytes # (Auto) 0.3 0-1.3 10 ^3/uL Eosinophils # (Auto) 0 0-0.8 10 ^3/uL Basophils # (Auto) 0 0-0.2 10 ^3/uL Nucleated Red Blood Cells 0.2 % Sodium Level 140 136-145 mmol/L Potassium Level 3.3 L 3.5-5.1 mmol/L Chloride Level 106 98-107 mmol/L Carbon Dioxide Level 23 20-31 mmol/L Anion Gap 11 5-15 Blood Urea Nitrogen 32 H 9-23 mg/dL Creatinine 2.63 H 0.550-1.02 mg/dL Glomerular Filtration Rate Calc 19 >90 mL/min BUN/Creatinine Ratio 12.2 10.0-20.0 Serum Glucose 90 74-106 mg/dL Calcium Level 10.7 H 8.7-10.4 mg/dL Current Medications Medications (Trade) Dose Ordered Sig/Ginger Route Start Time Stop Time Status Last Admin Ondansetron HCl (Zofran) 4 mg ONCE ONCE IV 07/06/24 14:00 07/06/24 14:02 DC 07/06/24 14:52 Sodium Chloride 1,000 ml @ 1,000 mls/hr Q1H ONCE IVB 07/06/24 14:00 07/06/24 14:59 DC 07/06/24 14:53 Morphine Sulfate 4 mg ONCE ONCE IV 07/06/24 14:00 07/06/24 14:02 DC 07/06/24 14:53 Patient alert. Complaining of frequent urination. Was seen in the ER for same symptom yesterday. Vitals stable. Possible sepsis from urine. She is anemic. Establish intravenous access. Was given fluids. Was given Rocephin. Reviewed her previous visit. Explained to the patient. Continue cardiac monitoring. Time of 1ST Reevaluation: 14:12 Reevaluation 1ST: Unchanged Patient Education/Counseling: Diagnosis, Treatment, Prognosis Family Education/Counseling: No Family Present Additional Information The following tests were ordered, and results were reviewed by me: CBC, UA, BMP Additional Information was gathered from interviewing the following independent historians: EMS I discussed treatment and results with medical personnel and: patient Comprehensive systems review obtained and negative except for what is stated in the HPI. Departure 1 Departure Time of Disposition: 14:52 Impression: Primary Impression: Sepsis due to urinary tract infection Additional Impression: Anemia Qualified Codes: D64.9 - Anemia, unspecified Disposition: ADMITTED INPATIENT (Sepsis from urinary tract infection) Admit to: Med Surg Condition: Guarded Critical Care Note Critical Care Time?: No Stability Stability form required: No I personally scribed for CHERELLE BROWN MD ([email or web address]) on 07/06/24 at 14:01. Electronically submitted by Mary Devine ([email or web address]). I personally scribed for CHERELLE BROWN MD ([email or web address]) on 07/06/24 at 15:08. Electronically submitted by Mary Devine ([email or web address]). CHERELLE BROWN MD Jul 06, 2024 14:01
[2024-07-06 14:35] LABS: Basophils # (auto) 0 10 ^3/uL (0-0.2); Eosinophils # (auto) 0 10 ^3/uL (0-0.8); Eosinophils % (auto) 0.8 % (0.0-7.0); Hematocrit 29.5 % (36.0-46.0); Lymphocytes # (auto) 1.6 10 ^3/uL (0.4-5.4); Lymphocytes % (auto) 37.9 % (10.0-50.0); Mean Corpuscular Hemoglobin 29.7 pg (28.0-32.0); Mean Corpuscular Hgb Conc. 33.7 g/dL (32.0-36.0); Mean Corpuscular Volume 88.2 fL (80.0-100.0); Monocytes # (auto) 0.3 10 ^3/uL (0-1.3); Monocytes % (auto) 6.9 % (0.0-12.0); Neutrophils # (auto) 2.2 10 ^3/uL (1.6-8.6); Neutrophils % (auto) 53.4 % (37.0-80.0); Nucleated Red Blood Cells % 0.2 %; Platelet Count (auto) 174 10^3/uL (140-450); Red Blood Cells 3.35 10^6/uL (4.0-5.20); Red Cell Distribution Width 16.1 % (11.8-14.3); White Blood Cell 4.1 10^3/uL (4.4-10.8)
[2024-07-06 14:44] LABS: Chloride 106 mmol/L (98-107); Sodium 140 mmol/L (136-145)
[2024-07-06 14:45] LABS: Anion Gap 11 (5-15); Carbon Dioxide 23 mmol/L (20-31)
[2024-07-06 14:50] LABS: BUN/Creatinine Ratio 12.2 (10.0-20.0); Glucose 90 mg/dL (74-106)
[2024-07-06] MEDS: ONDANSETRON HCL 4 MG/2 ML VIAL IV ONE (14:52)
[2024-07-06] MEDS: MORPHINE SULFATE 4 MG/ML SYR/VIAL IV ONE (14:53)
[2024-07-06] MEDS: SODIUM CHLORIDE 0.9% 1,000 ML IVB ONE (14:53)
[2024-07-06 14:56] LABS: Blood Urea Nitrogen 32 mg/dL (9-23); Calcium 10.7 mg/dL (8.7-10.4); Potassium 3.3 mmol/L (3.5-5.1)
--- NOTE | 2024-07-06 16:53 | DVH ---
EXAM: CT Abdomen and Pelvis Without Intravenous Contrast CLINICAL INDICATION: flank pain TECHNIQUE: Axial computed tomography images of the abdomen and pelvis without intravenous contrast. This CT exam was performed using one or more of the following dose reduction techniques: automated exposure control, adjustment of the mA and/or kV according to patient size, and/or use of iterative r econstruction technique. CONTRAST: RADIATION DOSE: CTDIvol = 13.63 mGy, DLP = 643.73 mGy-cm COMPARISON: CT CT AB PEL WO CON-NO ORAL OR IV on DOS: 03/11/24, CT CT AB PEL WO CON-NO ORAL OR IV o n DOS: 08/02/22 FINDINGS: LUNG BASES: Unremarkable. No mass. No consolidation. ABDOMEN: LIVER: Hepatomegaly with fatty infiltration. GALLBLADDER AND BILE DUCTS: Cholelithiasis. No ductal dilation. PANCREAS: Unremarkable. No ductal dilation. SPLEEN: Unremarkable. No splenomegaly. ADRENALS: Unremarkable. No mass. KIDNEYS AND URETERS: Left nephrectomy. Right renal cysts. STOMACH AND BOWEL: Fecal retention in the colon consistent with constipation. Colonic diverticulos is without acute diverticulitis. No obstruction. PELVIS: APPENDIX: No findings to suggest acute appendicitis. BLADDER: Unremarkable. No stones. REPRODUCTIVE: Unremarkable as visualized. ABDOMEN and PELVIS: INTRAPERITONEAL SPACE: Unremarkable. No free air. No significant fluid collection. BONES/JOINTS: No acute fracture. No dislocation. SOFT TISSUES: Umbilical hernia containing fat. VASCULATURE: Unremarkable. No abdominal aortic aneurysm. LYMPH NODES: Unremarkable. No enlarged lymph nodes. OTHER FINDINGS: . . . IMPRESSION: 1. Hepatomegaly with fatty infiltration. 2. Cholelithiasis. 3. Fecal retention in the colon consistent with constipation. 4. Umbilical hernia containing fat. 5. Colonic diverticulosis without acute diverticulitis.
[2024-07-06 19:44] LABS: Urine Bacteria None Seen /hpf (None Seen)
[2024-07-06 19:54] LABS: Urine Blood Negative /uL (Negative); Urine Clarity Clear (Clear); Urine Color Colorless (Yellow); Urine Protein, UAD Negative (Negative); Urine Specific Gravity 1.006 (1.001-1.035); Urine Squamous Epithelial Cell FEW /hpf (<5); Urine Urobilinogen Normal (Negative); Urine WBC 2 /HPF (0-5)
[2024-07-06] MEDS: HYDROcodone-ACET 5/325MG TAB PO PRN (20:12)
[2024-07-06] MEDS: cefTRIAXone 1GM/50ML D5W 50 ML IV ONE (21:00)
[2024-07-06 21:01] VITALS: PULSE 59; RESP 16; O2SAT 98
[2024-07-06] MEDS ORDERED: GABAPENTIN 400 MG CAP PO SCH (22:00)
--- NOTE | 2024-07-06 22:01 | DVHHP2 ---
History of Present Illness Reason for Visit: Flank pain History of Present Illness 74-year-old female presents for evaluation of right-sided flank pain. Patient reports a three day history of sharp right-sided flank pain with associated dysuria and urinary frequency. Reports occasional chills. Denies hematuria. No nausea or vomiting. No other acute complaints. Past Medical History Dyslipidemia, hypertension, CHF, asthma Past Surgical History Hysterectomy Family History Noncontributory Smoke: No ALCOHOL: none Drugs: None Lives: with Family Review of Systems Review of Systems Review of systems are currently negative otherwise addressed in HPI. Allergies: Coded Allergies: NO KNOWN ALLERGIES (Unverified , 11/11/18) Medications Current Medications Medications Dose Ordered Sig/Ginger Route Start Time Stop Time Status Last Admin Dose Admin Amlodipine Besylate 10 mg DAILY PO 07/07/24 10:00 Atorvastatin Calcium 40 mg HS PO 07/06/24 22:00 Carbamazepine 200 mg BID PO 07/06/24 22:00 Furosemide 40 mg DAILY PO 07/07/24 10:00 Gabapentin 400 mg BID PO 07/06/24 22:00 Future Hold Levothyroxine Sodium 75 mcg QAM@0600 PO 07/07/24 06:00 Montelukast Sodium 10 mg HS PO 07/06/24 22:00 Pregabalin 75 mg BID PO 07/06/24 22:00 Acetaminophen/ Hydrocodone Bitart 1 tab Q4HP PRN PO 07/06/24 19:00 07/06/24 20:12 1 TAB Ondansetron HCl 4 mg Q4HP PRN IV 07/06/24 19:00 Acetaminophen 650 mg Q6HP PRN PO 07/06/24 19:00 Ceftriaxone Sodium 50 ml @ 100 mls/hr DAILY@09 IV 07/07/24 09:00 Exam Vital Signs Vital Signs Date Time Temp Pulse Resp B/P (MAP) Pulse Ox O2 Delivery O2 Flow Rate FiO2 07/06/24 21:01 59 16 98 Room Air* 0 21 07/06/24 19:54 97.6 139/77 (97) 97.6 Exam Gen: 74-year-old female in Skin: Warm, dry, normal color and texture, no rash. HEENT: Normocephalic atraumatic, mucous membranes moist and pink. Neck: Cervical and supraclavicular nodes normal without enlargement, trachea is midline, thyroid gland is normal without masses. Pulmonary: Clear to auscultation and percussion bilaterally. Cardiac: Regular rate and rhythm. No murmur Abdomen: Soft, right CVA tenderness, nondistended, bowel sounds present all 4 quadrants, no guarding, no rigidity, no organomegaly. Extremities: No cyanosis, clubbing, no edema Neuro: Cranial nerves II through XII grossly intact, normal affect and speech, no focal motor deficits. Labs/Xrays ORDERING PHYSICIAN: CHERELLE BROWN MD PROCEDURE(s): ABPL - CT AB PEL WO CON-NO ORAL OR IV REASON: flank pain ORDER NUMBER(s): [id number], ACCESSION NUMBER(s): [id number] EXAM: CT Abdomen and Pelvis Without Intravenous Contrast CLINICAL INDICATION: flank pain TECHNIQUE: Axial computed tomography images of the abdomen and pelvis without intravenous contrast. This CT exam was performed using one or more of the following dose reduction techniques: automated exposure control, adjustment of the mA and/or kV according to patient size, and/or use of iterative reconstruction technique. CONTRAST: RADIATION DOSE: CTDIvol = 13.63 mGy, DLP = 643.73 mGy-cm COMPARISON: CT CT AB PEL WO CON-NO ORAL OR IV on DOS: 03/11/24, CT CT AB PEL WO CON-NO ORAL OR IV on DOS: 08/02/22 FINDINGS: LUNG BASES: Unremarkable. No mass. No consolidation. ABDOMEN: LIVER: Hepatomegaly with fatty infiltration. GALLBLADDER AND BILE DUCTS: Cholelithiasis. No ductal dilation. PANCREAS: Unremarkable. No ductal dilation. SPLEEN: Unremarkable. No splenomegaly. ADRENALS: Unremarkable. No mass. KIDNEYS AND URETERS: Left nephrectomy. Right renal cysts. STOMACH AND BOWEL: Fecal retention in the colon consistent with constipation. Colonic diverticulosis without acute diverticulitis. No obstruction. PELVIS: APPENDIX: No findings to suggest acute appendicitis. BLADDER: Unremarkable. No stones. REPRODUCTIVE: Unremarkable as visualized. ABDOMEN and PELVIS: INTRAPERITONEAL SPACE: Unremarkable. No free air. No significant fluid collection. BONES/JOINTS: No acute fracture. No dislocation. SOFT TISSUES: Umbilical hernia containing fat. VASCULATURE: Unremarkable. No abdominal aortic aneurysm. LYMPH NODES: Unremarkable. No enlarged lymph nodes. OTHER FINDINGS: . . . IMPRESSION: 1. Hepatomegaly with fatty infiltration. 2. Cholelithiasis. 3. Fecal retention in the colon consistent with constipation. 4. Umbilical hernia containing fat. 5. Colonic diverticulosis without acute diverticulitis. Labs Test 07/06/24 19:30 07/06/24 14:14 Range/Units Urine Color Colorless Yellow Urine Clarity Clear Clear Urine pH 5.0 5.0-9.0 Urine Specific [place] 1.006 1.001-1.035 Urine Protein Negative Negative Urine Ketones Negative Negative Urine Blood Negative Negative /uL Urine Nitrite Negative Negative Urine Bilirubin Negative Negative Urine Urobilinogen Normal Negative mg/dL Urine Leukocyte Esterase Negative Negative /uL Urine RBC <1 0 - 4 /hpf Urine Microscopic WBC 2 0-5 /HPF Urine Squamous Epithelial Cells Few <5 /hpf Urine Bacteria None seen None Seen /hpf Urine Glucose Normal Normal mg/dL White Blood Count 4.1 L 4.4-10.8 10^3/uL Red Blood Count 3.35 L 4.0-5.20 10^6/uL Hemoglobin 10.0 L 12.2-16.2 g/dL Hematocrit 29.5 L 36.0-46.0 % Mean Corpuscular Volume 88.2 80.0-100.0 fL Mean Corpuscular Hemoglobin 29.7 28.0-32.0 pg Mean Corpuscular Hemoglobin Concent 33.7 32.0-36.0 g/dL Red Cell Distribution Width 16.1 H 11.8-14.3 % Platelet Count 174 140-450 10^3/uL Mean Platelet Volume 7.2 6.9-10.8 fL Neutrophils (%) (Auto) 53.4 37.0-80.0 % Lymphocytes (%) (Auto) 37.9 10.0-50.0 % Monocytes (%) (Auto) 6.9 0.0-12.0 % Eosinophils (%) (Auto) 0.8 0.0-7.0 % Basophils (%) (Auto) 1.0 0.0-2.0 % Neutrophils # (Auto) 2.2 1.6-8.6 10 ^3/uL Lymphocytes # (Auto) 1.6 0.4-5.4 10 ^3/uL Monocytes # (Auto) 0.3 0-1.3 10 ^3/uL Eosinophils # (Auto) 0 0-0.8 10 ^3/uL Basophils # (Auto) 0 0-0.2 10 ^3/uL Nucleated Red Blood Cells 0.2 % Sodium Level 140 136-145 mmol/L Potassium Level 3.3 L 3.5-5.1 mmol/L Chloride Level 106 98-107 mmol/L Carbon Dioxide Level 23 20-31 mmol/L Anion Gap 11 5-15 Blood Urea Nitrogen 32 H 9-23 mg/dL Creatinine 2.63 H 0.550-1.02 mg/dL Glomerular Filtration Rate Calc 19 >90 mL/min BUN/Creatinine Ratio 12.2 10.0-20.0 Serum Glucose 90 74-106 mg/dL Calcium Level 10.7 H 8.7-10.4 mg/dL Assessment/Plan Assessment/Plan Assessment Possible urinary tract infection Chronic kidney disease Hypokalemia Chronic anemia Hypertension Plan Admit the patient to Med surge to the hospitalist pending Rocephin Replete electrolytes Resume home medications Pain management Continue treatment per orders. Plan discussed with: Patient My Orders Orders - SAMUEL WIGGINS AGACNP Procedure Category Date Status Time Amlodipine Tablet PHA 07/07/24 In Process (Norvasc Tablet) 10:00 Atorvastatin (Lipitor) PHA 07/06/24 In Process 22:00 Carbamazepine Tablet PHA 07/06/24 In Process (Tegretol Tablet) 22:00 Furosemide Tablet PHA 07/07/24 In Process (Lasix Tablet) 10:00 Gabapentin Capsule PHA 07/06/24 In Process (Neurontin Capsule) 22:00 Levothyroxine Tablet PHA 07/07/24 In Process (Synthroid Tablet) 06:00 Montelukast Tablet PHA 07/06/24 In Process (Singulair Tablet) 22:00 Pregabalin Capsule PHA 07/06/24 In Process (Lyrica Capsule) 22:00 Basic Metabolic Panel LAB 07/07/24 Verified 04:00 Admit ADMIT 07/06/24 Transmitted 18:52 Hydrocodone-Acet PHA 07/06/24 In Process 5/325mg Tab ([place] 19:00 Ondansetron Hcl PHA 07/06/24 In Process (Zofran) 19:00 Complete Blood Count LAB 07/07/24 Verified 04:00 Cardiac DIET 07/07/24 Transmitted Diet-2gna,Lofat,Lochol Breakfast Condition: Stable RADHAMES 07/06/24 In Process 18:52 Acetaminophen Tablet PHA 07/06/24 In Process (Tylenol Tablet) 19:00 Bedrest With Bathroom RADHAMES 07/06/24 In Process Privileg 18:52 Ceftriaxone 1gm/50ml PHA 07/07/24 In Process D5w (Rocephin) 09:00 Date of Service: Jul 06, 2024 Billing Provider: SAMUEL WIGGINS Common Visit Codes: [id number] INP/OBS CARE (MOD) SAMUEL WIGGINS Jul 06, 2024 22:01
[2024-07-06] MEDS: ATORVASTATIN 20 MG TAB PO SCH (22:33)
[2024-07-06] MEDS: carBAMazepine 200 MG TAB PO SCH (22:33)
[2024-07-06] MEDS: MONTELUKAST SODIUM 10 MG TAB PO SCH (22:33)
[2024-07-06] MEDS: PREGABALIN CAPSULE 75 MG CAP PO SCH (22:34)
[2024-07-06 22:55] VITALS: BP 119/69; PULSE 63; RESP 16; TEMP 98.1; O2SAT 100
[2024-07-06 22:59] VITALS: BP 119/69; PULSE 63; RESP 16; TEMP 98.1; O2SAT 100
[2024-07-07] VITALS (7 sets, daily range): BP systolic 99–136; BP diastolic 61–73; PULSE 58–72; RESP 16–20; TEMP 97.4–98.3; O2SAT 96–99
[2024-07-07] MEDS: LEVOTHYROXINE SODIUM 25 MCG TAB PO SCH (05:50)
[2024-07-07 08:05] LABS: Albumin 3.9 g/dL (3.2-4.8); Alkaline Phosphatase 57 U/L (46-116); Anion Gap 9 (5-15); BUN/Creatinine Ratio 12.4 (10.0-20.0); Calcium 9.4 mg/dL (8.7-10.4); Carbon Dioxide 25 mmol/L (20-31); Glucose 91 mg/dL (74-106); Potassium 3.7 mmol/L (3.5-5.1); Sodium 144 mmol/L (136-145); Total Protein 5.8 g/dL (5.7-8.2)
[2024-07-07 08:06] LABS: Bilirubin, Total 0.6 mg/dL (0.2-1.0)
[2024-07-07 08:07] LABS: Alanine Aminotransferase 9 U/L (7-40); Aspartate Aminotransferase 10 U/L (13-40); Blood Urea Nitrogen 33 mg/dL (9-23); Chloride 110 mmol/L (98-107)
[2024-07-07 08:12] LABS: Basophils # (auto) 0 10 ^3/uL (0-0.2); Basophils % (auto) 0.5 % (0.0-2.0); Eosinophils # (auto) 0 10 ^3/uL (0-0.8); Eosinophils % (auto) 1.2 % (0.0-7.0); Hematocrit 26.4 % (36.0-46.0); Hemoglobin 8.9 g/dL (12.2-16.2); Lymphocytes # (auto) 1.9 10 ^3/uL (0.4-5.4); Lymphocytes % (auto) 50.4 % (10.0-50.0); Mean Corpuscular Hemoglobin 29.7 pg (28.0-32.0); Mean Corpuscular Hgb Conc. 33.8 g/dL (32.0-36.0); Mean Corpuscular Volume 87.8 fL (80.0-100.0); Monocytes # (auto) 0.3 10 ^3/uL (0-1.3); Monocytes % (auto) 8.3 % (0.0-12.0); Neutrophils # (auto) 1.5 10 ^3/uL (1.6-8.6); Neutrophils % (auto) 39.6 % (37.0-80.0); Nucleated Red Blood Cells % 0.1 %; Platelet Count (auto) 152 10^3/uL (140-450); White Blood Cell 3.8 10^3/uL (4.4-10.8)
[2024-07-07] MEDS: FUROSEMIDE 40 MG TAB PO SCH (09:03)
[2024-07-07] MEDS: cefTRIAXone 1GM/50ML D5W 50 ML IV SCH (09:04)
[2024-07-07] MEDS: amLODIPine BESYLATE 5 MG TAB PO SCH (09:04)
[2024-07-07] MEDS: ONDANSETRON HCL 4 MG/2 ML VIAL IV PRN (12:00)
--- NOTE | 2024-07-07 12:14 | DVHPN2 ---
Reviewed: Care Plan, H&P, Labs, Medications, Previous Orders, Radiology Changes from previous H/P or p: No Changes Objective Vitals Vital Signs Date Time Temp Pulse Resp B/P (MAP) Pulse Ox O2 Delivery O2 Flow Rate FiO2 07/07/24 09:04 121/63 07/07/24 09:00 97.5 60 20 96 97.5 07/07/24 08:00 Room Air* 0 21 Intake/Output Intake and Output 07/07/24 07:00 Intake Total 150 ml Balance 150 ml Intake Oral 100 ml IV Total 50 ml # Voids 3 Medications Current Medications Medications Dose Ordered Sig/Ginger Route Start Time Stop Time Status Last Admin Dose Admin Amlodipine Besylate 10 mg DAILY PO 07/07/24 10:00 07/07/24 09:04 10 MG Atorvastatin Calcium 40 mg HS PO 07/06/24 22:00 07/06/24 22:33 40 MG Carbamazepine 200 mg BID PO 07/06/24 22:00 07/07/24 09:03 200 MG Furosemide 40 mg DAILY PO 07/07/24 10:00 07/07/24 09:03 40 MG Gabapentin 400 mg BID PO 07/06/24 22:00 Hold Levothyroxine Sodium 75 mcg QAM@0600 PO 07/07/24 06:00 07/07/24 05:50 75 MCG Montelukast Sodium 10 mg HS PO 07/06/24 22:00 07/06/24 22:33 10 MG Pregabalin 75 mg BID PO 07/06/24 22:00 07/07/24 09:40 75 MG Acetaminophen/ Hydrocodone Bitart 1 tab Q4HP PRN PO 07/06/24 19:00 07/07/24 06:17 1 TAB Ondansetron HCl 4 mg Q4HP PRN IV 07/06/24 19:00 07/07/24 12:00 4 MG Acetaminophen 650 mg Q6HP PRN PO 07/06/24 19:00 Ceftriaxone Sodium 50 ml @ 100 mls/hr DAILY@09 IV 07/07/24 09:00 07/07/24 09:04 100 MLS/HR Laboratory Results Laboratory Tests 07/07/24 07:30 Chemistry Test 07/06/24 14:14 07/07/24 07:30 Calcium Level 10.7 mg/dL (8.7-10.4) H 9.4 mg/dL (8.7-10.4) Albumin 3.9 g/dL (3.2-4.8) Total Protein 5.8 g/dL (5.7-8.2) LFT Test 07/07/24 07:30 Alanine Aminotransferase (ALT) 9 U/L (7-40) Alkaline Phosphatase 57 U/L (46-116) Aspartate Amino Transferase (AST) 10 U/L (13-40) L Total Bilirubin 0.6 mg/dL (0.2-1.0) Urinalysis Test 07/06/24 19:30 Urine Color Colorless (Yellow) Urine Clarity Clear (Clear) Urine pH 5.0 (5.0-9.0) Urine Specific [place] 1.006 (1.001-1.035) Urine Protein Negative (Negative) Urine Ketones Negative (Negative) Urine Blood Negative /uL (Negative) Urine Nitrite Negative (Negative) Urine Bilirubin Negative (Negative) Urine Urobilinogen Normal mg/dL (Negative) Urine Leukocyte Esterase Negative /uL (Negative) Urine RBC <1 /hpf (0 - 4) Urine Microscopic WBC 2 /HPF (0-5) Urine Squamous Epithelial Cells Few /hpf (<5) Urine Bacteria None seen /hpf (None Seen) Urine Glucose Normal mg/dL (Normal) Labs and/or images reviewed: Labs reviewed by me, Image(s) reviewed by me Assessment/Plan Assessment/Plan Acute Right flank pain: CT abdomen pelvis without contrast negative for any acute pathology, no kidney stones, DC [place], start morphine Possible urinary tract infection : Rocephin Chronic kidney disease Hypokalemia Chronic anemia History of left kidney mass status post nephrectomy 2021 [facility] Hypertension Diverticulosis Gallstones Fatty liver HIDA Scan ordered Surgical consult for Dr. Julio Plan discussed with: Patient Date of Service: Jul 07, 2024 Billing Provider: EDUARDO ADRIAN MD Common Visit Codes: [id number] INP/OBS CARE(HIGH) EDUARDO ADRIAN MD Jul 07, 2024 12:14
--- NOTE | 2024-07-07 15:33 | DVH ---
EXAM: NM NM HIDA SCAN History: RUQ abdominal pain gallstones rule out cholecystitis Comparison Study: None available TECHNIQUE: Following intravenous administration of 5.0 mCi of Tc-99m mebrofenin (Choletec), dynamic sequential images of the right upper abdomen were acquired for 60 minutes. An additional planar image in the lateral right upper quadrant was also obtained. FINDINGS: The liver demonstrates prompt radiotracer uptake with clearance from blood pool. No focal perfusion d efects were noted. There was prompt excretion of the radiotracer into the biliary tree, without evide nce of biliary dilatation or obstruction. There was prompt filling of the gallbladder. IMPRESSION: 1. No evidence for acute cholecystitis.
[2024-07-07] MEDS: MORPHINE SULFATE INJ 2 MG/ml SYRG IV PRN (15:39)
[2024-07-08] VITALS (8 sets, daily range): BP systolic 100–120; BP diastolic 61–81; PULSE 60–65; RESP 17–18; TEMP 97.3–98.4; O2SAT 95–98
--- NOTE | 2024-07-08 10:28 | DVHPN2 ---
Reviewed: Care Plan, H&P, Labs, Medications, Previous Orders, Radiology Changes from previous H/P or p: No Changes Objective Vitals Vital Signs Date Time Temp Pulse Resp B/P (MAP) Pulse Ox O2 Delivery O2 Flow Rate FiO2 07/08/24 10:11 64 18 119/71 07/08/24 09:00 98.2 98 98.2 07/07/24 20:00 Room Air* 0 21 Intake/Output Intake and Output 07/08/24 07:00 Intake Total 1550 ml Output Total 3 ml Balance 1547 ml Intake Oral 1500 ml IV Total 50 ml Output Urine Total 3 ml # Voids 3 Medications Current Medications Medications Dose Ordered Sig/Ginger Route Start Time Stop Time Status Last Admin Dose Admin Amlodipine Besylate 10 mg DAILY PO 07/07/24 10:00 07/07/24 09:04 10 MG Atorvastatin Calcium 40 mg HS PO 07/06/24 22:00 07/07/24 22:00 40 MG Carbamazepine 200 mg BID PO 07/06/24 22:00 07/08/24 09:44 200 MG Furosemide 40 mg DAILY PO 07/07/24 10:00 07/08/24 09:44 40 MG Gabapentin 400 mg BID PO 07/06/24 22:00 Hold Levothyroxine Sodium 75 mcg QAM@0600 PO 07/07/24 06:00 07/08/24 05:25 75 MCG Montelukast Sodium 10 mg HS PO 07/06/24 22:00 07/07/24 21:59 10 MG Pregabalin 75 mg BID PO 07/06/24 22:00 07/08/24 09:44 75 MG Ondansetron HCl 4 mg Q4HP PRN IV 07/06/24 19:00 07/07/24 16:20 4 MG Acetaminophen 650 mg Q6HP PRN PO 07/06/24 19:00 Ceftriaxone Sodium 50 ml @ 100 mls/hr DAILY@09 IV 07/07/24 09:00 07/08/24 09:43 100 MLS/HR Morphine Sulfate 4 mg Q4HPRN PRN IV 07/07/24 12:15 07/08/24 10:11 4 MG Laboratory Results Laboratory Tests 07/07/24 07:30 Urinalysis Test 07/06/24 19:30 Urine Color Colorless (Yellow) Urine Clarity Clear (Clear) Urine pH 5.0 (5.0-9.0) Urine Specific [place] 1.006 (1.001-1.035) Urine Protein Negative (Negative) Urine Ketones Negative (Negative) Urine Blood Negative /uL (Negative) Urine Nitrite Negative (Negative) Urine Bilirubin Negative (Negative) Urine Urobilinogen Normal mg/dL (Negative) Urine Leukocyte Esterase Negative /uL (Negative) Urine RBC <1 /hpf (0 - 4) Urine Microscopic WBC 2 /HPF (0-5) Urine Squamous Epithelial Cells Few /hpf (<5) Urine Bacteria None seen /hpf (None Seen) Urine Glucose Normal mg/dL (Normal) Labs and/or images reviewed: Labs reviewed by me, Image(s) reviewed by me Assessment/Plan Assessment/Plan Acute Right flank pain: CT abdomen pelvis without contrast negative for any acute pathology, no kidney stones, DC [place], start morphine Persistent nausea and vomiting consult for GI Dr. Sanjay Andrews Possible urinary tract infection : Rocephin Chronic kidney disease Hypokalemia Chronic anemia History of left kidney mass status post nephrectomy 2021 [facility] Hypertension Diverticulosis Gallstones , HIDA scan negative for cholecystitis consult for surgeon Dr. Ely Andrews Fatty liver Surgical consult for Dr. Julio Plan discussed with: Patient My Orders Orders - EDUARDO ADRIAN MD Procedure Category Date Status Time Morphine Sulfate PHA 07/07/24 In Process Injection 12:15 Nm Hida Scan NM 07/07/24 Resulted 12:15 * Surgical Consult CONS 07/07/24 Transmitted Date of Service: Jul 08, 2024 Billing Provider: EDUARDO ADRIAN MD Common Visit Codes: [id number] INP/OBS CARE(HIGH) EDUARDO ADRIAN MD Jul 08, 2024 10:28
--- NOTE | 2024-07-08 12:39 | DVHINCON2 ---
GI Consult Consult Note GI consult note Date of Consultation: 07/08/2024 Chief Complaint: Nausea vomiting gallstones Referring Physician: Dr. Kris Adrian H&P: 74-year-old female presented to ER with complaints of right-sided flank pain Patient says pain pain starts in her right flank and radiates up to her right upper quadrant, for two days, pain is constant and severe Patient also has nausea, no vomiting, Zofran is helping. Patient only complains of occasional heartburn symptoms Patient has history of constipation, last BM 4-5 days ago Status post colonoscopy 4-5 years, WNL per patient. No EGD in past Patient complains of decreased urine output Past Medical History: Dyslipidemia, hypertension, CHF, asthma Past Surgical History: Hysterectomy Social History: NO smoking, drinking ETOH and use of illegal drugs. Family History: Noncontributory Review of Systems: Constitutional: no fever, chill, weight loss HEENT: no eye pain, no hearing loss, no oral lesion, no scleral icterus Heart: no chest pain, no chest pressure Lung: no cough, no dyspnea with exertion Abdomen: see HPI Physical exam: General: NAD, AAOX3 Chest: lung ross clear to auscultation Heart: RRR, no murmur Abdomen: non-distended, moderate right upper quadrant right flank tenderness to palpation, +BS Labs: Labs Test 07/07/24 07:30 07/06/24 19:30 Range/Units White Blood Count 3.8 L 4.4-10.8 10^3/uL Red Blood Count 3.00 L 4.0-5.20 10^6/uL Hemoglobin 8.9 L 12.2-16.2 g/dL Hematocrit 26.4 #L 36.0-46.0 % Mean Corpuscular Volume 87.8 80.0-100.0 fL Mean Corpuscular Hemoglobin 29.7 28.0-32.0 pg Mean Corpuscular Hemoglobin Concent 33.8 32.0-36.0 g/dL Red Cell Distribution Width 16.0 H 11.8-14.3 % Platelet Count 152 140-450 10^3/uL Mean Platelet Volume 7.2 6.9-10.8 fL Neutrophils (%) (Auto) 39.6 37.0-80.0 % Lymphocytes (%) (Auto) 50.4 H 10.0-50.0 % Monocytes (%) (Auto) 8.3 0.0-12.0 % Eosinophils (%) (Auto) 1.2 0.0-7.0 % Basophils (%) (Auto) 0.5 0.0-2.0 % Neutrophils # (Auto) 1.5 L 1.6-8.6 10 ^3/uL Lymphocytes # (Auto) 1.9 0.4-5.4 10 ^3/uL Monocytes # (Auto) 0.3 0-1.3 10 ^3/uL Eosinophils # (Auto) 0 0-0.8 10 ^3/uL Basophils # (Auto) 0 0-0.2 10 ^3/uL Nucleated Red Blood Cells 0.1 % Sodium Level 144 136-145 mmol/L Potassium Level 3.7 3.5-5.1 mmol/L Chloride Level 110 H 98-107 mmol/L Carbon Dioxide Level 25 20-31 mmol/L Anion Gap 9 5-15 Blood Urea Nitrogen 33 H 9-23 mg/dL Creatinine 2.67 H 0.550-1.02 mg/dL Glomerular Filtration Rate Calc 18 >90 mL/min BUN/Creatinine Ratio 12.4 10.0-20.0 Serum Glucose 91 74-106 mg/dL Calcium Level 9.4 8.7-10.4 mg/dL Total Bilirubin 0.6 0.2-1.0 mg/dL Aspartate Amino Transferase (AST) 10 L 13-40 U/L Alanine Aminotransferase (ALT) 9 7-40 U/L Alkaline Phosphatase 57 46-116 U/L Total Protein 5.8 5.7-8.2 g/dL Albumin 3.9 3.2-4.8 g/dL Urine Color Colorless Yellow Urine Clarity Clear Clear Urine pH 5.0 5.0-9.0 Urine Specific [place] 1.006 1.001-1.035 Urine Protein Negative Negative Urine Ketones Negative Negative Urine Blood Negative Negative /uL Urine Nitrite Negative Negative Urine Bilirubin Negative Negative Urine Urobilinogen Normal Negative mg/dL Urine Leukocyte Esterase Negative Negative /uL Urine RBC <1 0 - 4 /hpf Urine Microscopic WBC 2 0-5 /HPF Urine Squamous Epithelial Cells Few <5 /hpf Urine Bacteria None seen None Seen /hpf Urine Glucose Normal Normal mg/dL Imaging: CT abdomen pelvis IMPRESSION: 1. Hepatomegaly with fatty infiltration. 2. Cholelithiasis. 3. Fecal retention in the colon consistent with constipation. 4. Umbilical hernia containing fat. 5. Colonic diverticulosis without acute diverticulitis. HIDA scan IMPRESSION: 1. No evidence for acute cholecystitis. Assessment: Acute abdominal pain Persistent nausea possible secondary to renal insufficiency Chronic kidney disease Chronic anemia possible secondary to renal insufficiency status post left nephrectomy 2021 Cholelithiasis Fatty liver Constipation Plan: Discussed with Dr. Andrews Monitor lab Stool for occult blood Protonix and Zofran Surgical consult pending We will continue to monitor the patient, if nausea persist possible plan for EGD Otherwise outpatient follow-up for GI elective procedures Thank you for this consult Date of Service: Jul 08, 2024 Billing Provider: BRANDEN ADRIAN Common Visit Codes: CONSULT ONLY Consultation Codes: [id number] CONSULT <60MIN BRANDEN ADRIAN Jul 08, 2024 12:39
--- NOTE | 2024-07-08 14:54 | DVHINCON2 ---
Date of service: Jul 08, 2024 Family History: Patient reports no known family medical history. Allergies: Coded Allergies: NO KNOWN ALLERGIES (Unverified , 11/11/18) Home Meds Active Scripts Methylprednisolone (Medrol Dosepak) 4 Mg Gerald, 4 MG PO UD, #21 TAB UAD Prov:DIANE FRANKLIN STUDENT DEVELOPMENT ADVISOR 03/17/24 Docusate Sodium (Colace) 100 Mg Cap, 1 CAP PO BID, #60 CAP 2 Refills Prov:JUAN DOUGLAS MD 08/09/22 Hydrocodone-Acetaminophen (Hydrocodone Bitartrate/AC 5-325 mg) 1 Tab Tab, 1 TAB PO Q6HP PRN, #30 TAB Prov:JUAN DOUGLAS MD 08/09/22 Ondansetron (Zofran) 4 Mg Tab, 4 MG PO Q4HP PRN, #30 TAB Prov:JUAN DOUGLAS MD 08/09/22 Reported Medications Febuxostat (Febuxostat) 40 Mg Tab, 1 TAB PO DAILY for 30 Days, #30 07/07/24 Diclofenac Sodium (Diclofenac Sodium Ec) 50 Mg Tab, 1 TAB PO Q12HR for 30 Days, #60 07/07/24 Epoetin Julito (Epogen) 20,000 Unit/Ml Inj, 1 ML SC Q30D for 60 Days, #2 07/07/24 Gabapentin (Gabapentin) 400 Mg Cap, 1 CAP PO TID for 40 Days, #120 07/07/24 B-Complex W/ C & Folic Acid (Rebecca-Lilly Rx) Tab, 1 TAB PO DAILY for 30 Days, #30 03/12/24 Fluticasone Propionate (Nasal) (Fluticasone Propionate Na) 50 Mcg/Act Spr, 1 SPRAY EACHNOSTRI BID for 30 Days, #16 03/12/24 Oxycodone W/ Acetaminophen (Apap/Oxycodone) 1 Tab Tab, 1 TAB PO Q8HR for 30 Days, #90 03/12/24 Pregabalin (Lyrica) 75 Mg Cap, 1 CAP PO Q12HR for 30 Days, #60 03/12/24 Losartan Potassium (Losartan Potassium) 50 Mg Tab, 0.5 TAB PO DAILY for 100 Days, #50 03/12/24 Furosemide (Furosemide) 40 Mg Tab, 1 TAB PO QAM PRN for 30 Days, #30 03/12/24 Ferrous Sulfate (Ferosul) 325 Mg Tab, 1 TAB PO 3X/WEEK for 84 Days, #36 03/12/24 Clonazepam (Clonazepam) 0.5 Mg Tab, 1 TAB PO BIDPRN for 88 Days, #176 03/12/24 Carbamazepine (Carbamazepine) 200 Mg Tab, 1 TAB PO BID for 90 Days, #180 03/12/24 Oxycodone Hcl (OxyCONTIN ER Tablet) 10 Mg Tb, 1 TAB PO BID, #60 TAB 03/12/24 Omeprazole ([facility] Omeprazole Odt) 20 Mg Tab, 1 TAB PO BID 08/03/22 Montelukast Sodium (MONTELUKAST SODIUM) 10 Mg Tab, 1 TAB PO DAILY for 100 Days, #100 08/03/22 Atorvastatin Calcium (ATORVASTATIN CALCIUM) 40 Mg Tab, 1 TAB PO DAILY for 90 Days, #90 06/15/18 Amlodipine Besylate (Amlodipine Besylate) 10 Mg Tab, 1 TAB PO DAILY, #30 TAB 5 Refills 06/15/18 Levothyroxine Sodium (Levothyroxine Sodium) 50 Mcg Tab, 75 MCG PO QAM for 30 Days, #30 01/25/17 Venlafaxine Hydrochloride (Venlafaxine Hcl) 75 Mg Tab, 200 MG PO DAILY, TAB 01/25/17 Current Medications Current Medications Medications (Trade) Dose Ordered Sig/Ginger Route PRN Reason Start Time Stop Time Status Last Admin Pantoprazole Sodium (Protonix) 40 mg DAILY IV 07/09/24 10:00 Docusate Sodium (Colace Capsule) 100 mg BIDPRN PRN PO FOR CONSTIPATION 07/08/24 12:45 Vital Signs Vital Signs Date Time Temp Pulse Resp B/P (MAP) Pulse Ox O2 Delivery O2 Flow Rate FiO2 07/08/24 13:00 98.4 65 18 120/69 (86) 95 98.4 07/08/24 08:10 Room Air* 0 21 Labs/Diagnostic Data Labs Test 07/07/24 07:30 07/06/24 19:30 Range/Units White Blood Count 3.8 L 4.4-10.8 10^3/uL Red Blood Count 3.00 L 4.0-5.20 10^6/uL Hemoglobin 8.9 L 12.2-16.2 g/dL Hematocrit 26.4 #L 36.0-46.0 % Mean Corpuscular Volume 87.8 80.0-100.0 fL Mean Corpuscular Hemoglobin 29.7 28.0-32.0 pg Mean Corpuscular Hemoglobin Concent 33.8 32.0-36.0 g/dL Red Cell Distribution Width 16.0 H 11.8-14.3 % Platelet Count 152 140-450 10^3/uL Mean Platelet Volume 7.2 6.9-10.8 fL Neutrophils (%) (Auto) 39.6 37.0-80.0 % Lymphocytes (%) (Auto) 50.4 H 10.0-50.0 % Monocytes (%) (Auto) 8.3 0.0-12.0 % Eosinophils (%) (Auto) 1.2 0.0-7.0 % Basophils (%) (Auto) 0.5 0.0-2.0 % Neutrophils # (Auto) 1.5 L 1.6-8.6 10 ^3/uL Lymphocytes # (Auto) 1.9 0.4-5.4 10 ^3/uL Monocytes # (Auto) 0.3 0-1.3 10 ^3/uL Eosinophils # (Auto) 0 0-0.8 10 ^3/uL Basophils # (Auto) 0 0-0.2 10 ^3/uL Nucleated Red Blood Cells 0.1 % Sodium Level 144 136-145 mmol/L Potassium Level 3.7 3.5-5.1 mmol/L Chloride Level 110 H 98-107 mmol/L Carbon Dioxide Level 25 20-31 mmol/L Anion Gap 9 5-15 Blood Urea Nitrogen 33 H 9-23 mg/dL Creatinine 2.67 H 0.550-1.02 mg/dL Glomerular Filtration Rate Calc 18 >90 mL/min BUN/Creatinine Ratio 12.4 10.0-20.0 Serum Glucose 91 74-106 mg/dL Calcium Level 9.4 8.7-10.4 mg/dL Total Bilirubin 0.6 0.2-1.0 mg/dL Aspartate Amino Transferase (AST) 10 L 13-40 U/L Alanine Aminotransferase (ALT) 9 7-40 U/L Alkaline Phosphatase 57 46-116 U/L Total Protein 5.8 5.7-8.2 g/dL Albumin 3.9 3.2-4.8 g/dL Urine Color Colorless Yellow Urine Clarity Clear Clear Urine pH 5.0 5.0-9.0 Urine Specific [place] 1.006 1.001-1.035 Urine Protein Negative Negative Urine Ketones Negative Negative Urine Blood Negative Negative /uL Urine Nitrite Negative Negative Urine Bilirubin Negative Negative Urine Urobilinogen Normal Negative mg/dL Urine Leukocyte Esterase Negative Negative /uL Urine RBC <1 0 - 4 /hpf Urine Microscopic WBC 2 0-5 /HPF Urine Squamous Epithelial Cells Few <5 /hpf Urine Bacteria None seen None Seen /hpf Urine Glucose Normal Normal mg/dL Assessment [id number] R/O AC CHOLECYSTITIS POSSIBLE BILIARY COLIC R/O CONSTIPATION ABD SOFT TENDER RUQ CONTINUE CLOSE OBSERVATION FOR CONSTIPATION TO RESOLVE AND THEN CONSIDER GB SURGERY INDICATED BASED ON ONGOING EVAL NURSE AT BEDSIDE Plan discussed with: Patient SWATHI VILLANUEVA MD Jul 08, 2024 14:54
--- NOTE | 2024-07-08 15:27 | DVHINCON2 ---
DATE OF CONSULTATION: 07/08/2024 HISTORY OF PRESENT ILLNESS: This patient is 74 years old, coming in with right flank pain, some nausea, vomiting. She is constipated. No hematemesis, melena. No bleeding per rectum. PAST MEDICAL HISTORY: Hypertension, rheumatoid arthritis, CHF, asthma. PAST SURGICAL HISTORY: Hysterectomy. PHYSICAL EXAMINATION: VITAL SIGNS: Afebrile, stable signs. HEENT: With no evidence of pallor, cyanosis, or jaundice. NECK: Supple, nontender with no thyromegaly, lymphadenopathy. CHEST AND LUNGS: Clear. HEART: Within normal limits. ABDOMEN: Soft, tender in the right upper quadrant with no rebound. EXTREMITIES: Unremarkable. NEUROLOGIC: Intact. CLINICAL IMPRESSION: Rule out acute cholecystitis. HIDA scan is negative. She is possibly having biliary colic and the other possibility is pain coming from constipation. PLAN: Would be to allow the constipation to resolve, and if the pain is persistent, then consider laparoscopic, possible open cholecystectomy based upon ongoing evaluation. MD NIKOLAI Macedo/LAUREN/DENI TID: [id number] RECEIPT: [id number] cc: Fernandez Chicas MD
[2024-07-08] MEDS: DOCUSATE SOD 100 MG CAP PO PRN (16:25)
[2024-07-09] VITALS (41 sets, daily range): BP systolic 75–204; BP diastolic 45–113; PULSE 60–167; RESP 10–32; TEMP 97.5–100.2; O2SAT 93–100
[2024-07-09] MEDS: PANTOPRAZOLE 40 MG/10 ML VIAL INJ IV SCH (10:25)
--- NOTE | 2024-07-09 10:47 | DVHPN2 ---
Reviewed: Care Plan, H&P, Labs, Medications, Previous Orders, Radiology Changes from previous H/P or p: No Changes Objective Vitals Vital Signs Date Time Temp Pulse Resp B/P (MAP) Pulse Ox O2 Delivery O2 Flow Rate FiO2 07/09/24 10:26 101/54 07/09/24 09:00 98.2 68 18 96 98.2 07/08/24 20:00 Room Air* 0 21 Intake/Output Intake and Output 07/09/24 07:00 Intake Total 2050 ml Balance 2050 ml Intake Oral 2000 ml IV Total 50 ml # Voids 2 Medications Current Medications Medications Dose Ordered Sig/Ginger Route Start Time Stop Time Status Last Admin Dose Admin Amlodipine Besylate 10 mg DAILY PO 07/07/24 10:00 07/07/24 09:04 10 MG Atorvastatin Calcium 40 mg HS PO 07/06/24 22:00 07/08/24 21:09 40 MG Carbamazepine 200 mg BID PO 07/06/24 22:00 07/09/24 10:26 200 MG Furosemide 40 mg DAILY PO 07/07/24 10:00 07/09/24 10:26 40 MG Gabapentin 400 mg BID PO 07/06/24 22:00 Hold Levothyroxine Sodium 75 mcg QAM@0600 PO 07/07/24 06:00 07/09/24 05:20 75 MCG Montelukast Sodium 10 mg HS PO 07/06/24 22:00 07/08/24 21:09 10 MG Pregabalin 75 mg BID PO 07/06/24 22:00 07/09/24 10:26 75 MG Ondansetron HCl 4 mg Q4HP PRN IV 07/06/24 19:00 07/08/24 19:53 4 MG Acetaminophen 650 mg Q6HP PRN PO 07/06/24 19:00 Ceftriaxone Sodium 50 ml @ 100 mls/hr DAILY@09 IV 07/07/24 09:00 07/09/24 10:25 100 MLS/HR Morphine Sulfate 4 mg Q4HPRN PRN IV 07/07/24 12:15 07/08/24 10:11 4 MG Pantoprazole Sodium 40 mg DAILY IV 07/09/24 10:00 07/09/24 10:25 40 MG Docusate Sodium 100 mg BIDPRN PRN PO 07/08/24 12:45 07/09/24 10:25 100 MG Laboratory Results Laboratory Tests 07/07/24 07:30 Urinalysis Test 07/06/24 19:30 Urine Color Colorless (Yellow) Urine Clarity Clear (Clear) Urine pH 5.0 (5.0-9.0) Urine Specific [place] 1.006 (1.001-1.035) Urine Protein Negative (Negative) Urine Ketones Negative (Negative) Urine Blood Negative /uL (Negative) Urine Nitrite Negative (Negative) Urine Bilirubin Negative (Negative) Urine Urobilinogen Normal mg/dL (Negative) Urine Leukocyte Esterase Negative /uL (Negative) Urine RBC <1 /hpf (0 - 4) Urine Microscopic WBC 2 /HPF (0-5) Urine Squamous Epithelial Cells Few /hpf (<5) Urine Bacteria None seen /hpf (None Seen) Urine Glucose Normal mg/dL (Normal) Labs and/or images reviewed: Labs reviewed by me, Image(s) reviewed by me Assessment/Plan Assessment/Plan Acute Right flank pain: CT abdomen pelvis without contrast negative for any acute pathology, no kidney stones, DC [place], start morphine Persistent nausea and vomiting constipation consult for GI Dr. Sanjay Funez Possible urinary tract infection : Rocephin Chronic kidney disease : consult for Dr. Saenz Hypokalemia Chronic anemia History of left kidney mass status post nephrectomy 2021 [facility] Hypertension Diverticulosis Gallstones , HIDA scan negative for cholecystitis consult for surgeon Dr. Ely Andrews appreciated, Fatty liver Persisting constipation: Lactulose adult Fleet enema Plan discussed with: Patient Date of Service: Jul 09, 2024 Billing Provider: EDUARDO ADRIAN MD Common Visit Codes: [id number] INP/OBS CARE(HIGH) EDUARDO ADRIAN MD Jul 09, 2024 10:47
[2024-07-09] MEDS: LACTULOSE 20Gm/30ML SOLN PO ONE (12:03)
[2024-07-09] MEDS: FLEET ENEMA(ADULT) 135 ML PR ONE (13:03)
--- NOTE | 2024-07-09 14:12 | DVHINCON2 ---
Date of service: Jul 09, 2024 Reason for Consultation [id number] History of Present Illness 74 year old female presented with RUQ abd pain Past Medical History Dyslipidemia, hypertension, CHF, asthma Past Surgical History left nephrectomy Allergies: Coded Allergies: NO KNOWN ALLERGIES (Unverified , 11/11/18) Home Meds Active Scripts Methylprednisolone (Medrol Dosepak) 4 Mg Gerald, 4 MG PO UD, #21 TAB UAD Prov:DIANE FRANKLIN TIRE BUILDER OPERATOR 03/17/24 Docusate Sodium (Colace) 100 Mg Cap, 1 CAP PO BID, #60 CAP 2 Refills Prov:JUAN DOUGLAS MD 08/09/22 Hydrocodone-Acetaminophen (Hydrocodone Bitartrate/AC 5-325 mg) 1 Tab Tab, 1 TAB PO Q6HP PRN, #30 TAB Prov:JUAN DOUGLAS MD 08/09/22 Ondansetron (Zofran) 4 Mg Tab, 4 MG PO Q4HP PRN, #30 TAB Prov:JUAN DOUGLAS MD 08/09/22 Reported Medications Febuxostat (Febuxostat) 40 Mg Tab, 1 TAB PO DAILY for 30 Days, #30 07/07/24 Diclofenac Sodium (Diclofenac Sodium Ec) 50 Mg Tab, 1 TAB PO Q12HR for 30 Days, #60 07/07/24 Epoetin Julito (Epogen) 20,000 Unit/Ml Inj, 1 ML SC Q30D for 60 Days, #2 07/07/24 Gabapentin (Gabapentin) 400 Mg Cap, 1 CAP PO TID for 40 Days, #120 07/07/24 B-Complex W/ C & Folic Acid ([facility] Rx) Tab, 1 TAB PO DAILY for 30 Days, #30 03/12/24 Fluticasone Propionate (Nasal) (Fluticasone Propionate Na) 50 Mcg/Act Spr, 1 SPRAY EACHNOSTRI BID for 30 Days, #16 03/12/24 Oxycodone W/ Acetaminophen (Apap/Oxycodone) 1 Tab Tab, 1 TAB PO Q8HR for 30 Days, #90 03/12/24 Pregabalin (Lyrica) 75 Mg Cap, 1 CAP PO Q12HR for 30 Days, #60 03/12/24 Losartan Potassium (Losartan Potassium) 50 Mg Tab, 0.5 TAB PO DAILY for 100 Days, #50 03/12/24 Furosemide (Furosemide) 40 Mg Tab, 1 TAB PO QAM PRN for 30 Days, #30 03/12/24 Ferrous Sulfate (Ferosul) 325 Mg Tab, 1 TAB PO 3X/WEEK for 84 Days, #36 03/12/24 Clonazepam (Clonazepam) 0.5 Mg Tab, 1 TAB PO BIDPRN for 88 Days, #176 03/12/24 Carbamazepine (Carbamazepine) 200 Mg Tab, 1 TAB PO BID for 90 Days, #180 03/12/24 Oxycodone Hcl (OxyCONTIN ER Tablet) 10 Mg Tb, 1 TAB PO BID, #60 TAB 03/12/24 Omeprazole ([facility] Omeprazole Odt) 20 Mg Tab, 1 TAB PO BID 08/03/22 Montelukast Sodium (MONTELUKAST SODIUM) 10 Mg Tab, 1 TAB PO DAILY for 100 Days, #100 08/03/22 Atorvastatin Calcium (ATORVASTATIN CALCIUM) 40 Mg Tab, 1 TAB PO DAILY for 90 Days, #90 06/15/18 Amlodipine Besylate (Amlodipine Besylate) 10 Mg Tab, 1 TAB PO DAILY, #30 TAB 5 Refills 06/15/18 Levothyroxine Sodium (Levothyroxine Sodium) 50 Mcg Tab, 75 MCG PO QAM for 30 Days, #30 01/25/17 Venlafaxine Hydrochloride (Venlafaxine Hcl) 75 Mg Tab, 200 MG PO DAILY, TAB 01/25/17 Current Medications Current Medications Medications (Trade) Dose Ordered Sig/Ginger Route PRN Reason Start Time Stop Time Status Last Admin Pantoprazole Sodium (Protonix) 40 mg DAILY IV 07/09/24 10:00 07/09/24 10:25 Family History: Patient reports no known family medical history. Review of Systems abdomen pain H&P Exam Vital Signs/I&O Vital Sign Date Time Temp Pulse Resp B/P (MAP) Pulse Ox O2 Delivery O2 Flow Rate FiO2 07/09/24 13:00 98.0 60 18 123/64 (83) 96 98.0 07/09/24 08:15 Room Air* 0 21 Intake and Output 07/08/24 07/09/24 19:00 07:00 Intake Total 1350 ml 700 ml Balance 1350 ml 700 ml Intake Oral 1300 ml 700 ml IV Total 50 ml # Voids 1 1 Physical Exam female weak appear no edema rrr Labs/Diagnostic Data Labs/Diagnostic Data Laboratory Tests Test 07/07/24 07:30 07/06/24 19:30 07/06/24 14:14 Range/Units White Blood Count 3.8 L 4.1 L 4.4-10.8 10^3/uL Red Blood Count 3.00 L 3.35 L 4.0-5.20 10^6/uL Hemoglobin 8.9 L 10.0 L 12.2-16.2 g/dL Hematocrit 26.4 #L 29.5 L 36.0-46.0 % Mean Corpuscular Volume 87.8 88.2 80.0-100.0 fL Mean Corpuscular Hemoglobin 29.7 29.7 28.0-32.0 pg Mean Corpuscular Hemoglobin Concent 33.8 33.7 32.0-36.0 g/dL Red Cell Distribution Width 16.0 H 16.1 H 11.8-14.3 % Platelet Count 152 174 140-450 10^3/uL Mean Platelet Volume 7.2 7.2 6.9-10.8 fL Neutrophils (%) (Auto) 39.6 53.4 37.0-80.0 % Lymphocytes (%) (Auto) 50.4 H 37.9 10.0-50.0 % Monocytes (%) (Auto) 8.3 6.9 0.0-12.0 % Eosinophils (%) (Auto) 1.2 0.8 0.0-7.0 % Basophils (%) (Auto) 0.5 1.0 0.0-2.0 % Neutrophils # (Auto) 1.5 L 2.2 1.6-8.6 10 ^3/uL Lymphocytes # (Auto) 1.9 1.6 0.4-5.4 10 ^3/uL Monocytes # (Auto) 0.3 0.3 0-1.3 10 ^3/uL Eosinophils # (Auto) 0 0 0-0.8 10 ^3/uL Basophils # (Auto) 0 0 0-0.2 10 ^3/uL Nucleated Red Blood Cells 0.1 0.2 % Sodium Level 144 140 136-145 mmol/L Potassium Level 3.7 3.3 L 3.5-5.1 mmol/L Chloride Level 110 H 106 98-107 mmol/L Carbon Dioxide Level 25 23 20-31 mmol/L Anion Gap 9 11 5-15 Blood Urea Nitrogen 33 H 32 H 9-23 mg/dL Creatinine 2.67 H 2.63 H 0.550-1.02 mg/dL Glomerular Filtration Rate Calc 18 19 >90 mL/min BUN/Creatinine Ratio 12.4 12.2 10.0-20.0 Serum Glucose 91 90 74-106 mg/dL Calcium Level 9.4 10.7 H 8.7-10.4 mg/dL Total Bilirubin 0.6 0.2-1.0 mg/dL Aspartate Amino Transferase (AST) 10 L 13-40 U/L Alanine Aminotransferase (ALT) 9 7-40 U/L Alkaline Phosphatase 57 46-116 U/L Total Protein 5.8 5.7-8.2 g/dL Albumin 3.9 3.2-4.8 g/dL Urine Color Colorless Yellow Urine Clarity Clear Clear Urine pH 5.0 5.0-9.0 Urine Specific [place] 1.006 1.001-1.035 Urine Protein Negative Negative Urine Ketones Negative Negative Urine Blood Negative Negative /uL Urine Nitrite Negative Negative Urine Bilirubin Negative Negative Urine Urobilinogen Normal Negative mg/dL Urine Leukocyte Esterase Negative Negative /uL Urine RBC <1 0 - 4 /hpf Urine Microscopic WBC 2 0-5 /HPF Urine Squamous Epithelial Cells Few <5 /hpf Urine Bacteria None seen None Seen /hpf Urine Glucose Normal Normal mg/dL Assessment Acute kidney injury hemodynamic CKd 4 ; with solitary kidney s/p nephrectomy abdominal pain, Diverticulosis constipation anemia CT shows no renal obstruction UA unremarkable rec IVF avoid hypotension GI w/u ongoing rec maintain hb > 8.0 due to advanced ckd Plan discussed with: Patient RONALDO GALEANO MD Jul 09, 2024 14:12
[2024-07-09] MEDS: ETOMIDATE (2MG/ML) 20ML VIAL IV ONE (14:46)
[2024-07-09] MEDS: ROCURONIUM 10MG/ML 10ML VIAL IV ONE (14:46)
[2024-07-09] MEDS: MIDAZOLAM DRIP 50 mg/50mL 50 ML IV ONE (14:58)
[2024-07-09] MEDS: fentaNYL Drip 2500mCg/250mlNS 250 ML IV ONE (14:58)
[2024-07-09] MEDS ORDERED: PIPERACILLIN-TAZO 4.5GM 100 ML IV SCH (15:00)
--- NOTE | 2024-07-09 15:11 | DVHPN2 ---
Progress Note Date Seen: Jul 09, 2024 Medical Necessity Reason Pt with a Central, PICC or Fol: No Objective vital signs Vital Sign Date Time Temp Pulse Resp B/P (MAP) Pulse Ox O2 Delivery O2 Flow Rate FiO2 07/09/24 13:00 98.0 60 18 123/64 (83) 96 98.0 07/09/24 08:15 Room Air* 0 21 Total Intake and Output 07/08/24 07/08/24 07/09/24 15:00 23:00 07:00 Intake Total 50 ml 1300 ml 700 ml Balance 50 ml 1300 ml 700 ml medications Current Medications Medications Dose Ordered Sig/Ginger Route Start Time Stop Time Status Last Admin Dose Admin Amlodipine Besylate 10 mg DAILY PO 07/07/24 10:00 07/07/24 09:04 10 MG Atorvastatin Calcium 40 mg HS PO 07/06/24 22:00 07/08/24 21:09 40 MG Carbamazepine 200 mg BID PO 07/06/24 22:00 07/09/24 10:26 200 MG Furosemide 40 mg DAILY PO 07/07/24 10:00 07/09/24 10:26 40 MG Gabapentin 400 mg BID PO 07/06/24 22:00 Hold Levothyroxine Sodium 75 mcg QAM@0600 PO 07/07/24 06:00 07/09/24 05:20 75 MCG Montelukast Sodium 10 mg HS PO 07/06/24 22:00 07/08/24 21:09 10 MG Pregabalin 75 mg BID PO 07/06/24 22:00 07/09/24 10:26 75 MG Ondansetron HCl 4 mg Q4HP PRN IV 07/06/24 19:00 07/08/24 19:53 4 MG Acetaminophen 650 mg Q6HP PRN PO 07/06/24 19:00 Ceftriaxone Sodium 50 ml @ 100 mls/hr DAILY@09 IV 07/07/24 09:00 07/09/24 10:25 100 MLS/HR Morphine Sulfate 4 mg Q4HPRN PRN IV 07/07/24 12:15 07/08/24 10:11 4 MG Pantoprazole Sodium 40 mg DAILY IV 07/09/24 10:00 07/09/24 10:25 40 MG Docusate Sodium 100 mg BIDPRN PRN PO 07/08/24 12:45 07/09/24 10:25 100 MG Doxycycline Hyclate 100 ml @ 50 mls/hr Q12H IV 07/09/24 15:00 UNV Piperacillin Sod/ Tazobactam Sod 100 ml @ 25 mls/hr Q6HR IV 07/09/24 15:00 UNV laboratory and microbiology Laboratory Tests 07/07/24 07:30 Test 07/07/24 07:30 Range/Units Serum Glucose 91 74-106 mg/dL Problem List/Assessment/Plan Problem List/Assessment/Plan INTUBATED CARDIORESPIRATORY EVENT POSSIBLE ASPIRATION CONTINUE CLOSE OBSERVATION HIGH RISK FOR SURGERY Plan discussed with: Other Dietary Evaluation Review Comments: Continue current plan of care Expected Outcomes/Goals: Pt will meet >75% estimated needs Fu 3-5 days SWATHI VILLANUEVA MD Jul 09, 2024 15:11
[2024-07-09] MEDS ORDERED: MIDAZOLAM DRIP 50 mg/50mL 50 ML IV SCH ×3 (15:15→17:00)
[2024-07-09] MEDS ORDERED: fentaNYL Drip 2500mCg/250mlNS 250 ML IV SCH ×2 (15:15→17:00)
--- NOTE | 2024-07-09 15:37 | DVH ---
EXAM: XY CHEST PORTABLE HISTORY: INTUBATION COMPARISON: Upper images of CT scan of the abdomen dated 07/06/2024. TECHNIQUE: Portable supine AP view of the chest was performed. FINDINGS: The film is rotated LPO. There is an endotracheal tube with its tip 2.2 cm above the tahmina . OG tube is identified with its tip greater than 13 cm distal to the GE junction, not imaged here. T here is mild interstitial prominence. There is patchy infiltrate in the left lung base with mild cyrus vation of the left hemidiaphragm. The left costophrenic angle is blunted. There is a calcified gran uloma in the left mid to lower lung laterally. No pneumothorax. The heart is not enlarged. IMPRESSION: 1. Endotracheal and OG tubes as above. 2. Left basilar opacity may represent atelectasis and/or pneumonia. This is new versus CT scan perfor med 3 days earlier.Mild 3. Interstitial prominence may be due to reactive airways disease or mild CHF.
[2024-07-09 15:43] LABS: Basophils # (auto) 0 10 ^3/uL (0-0.2); Basophils % (auto) 0.3 % (0.0-2.0); Eosinophils # (auto) 0 10 ^3/uL (0-0.8); Eosinophils % (auto) 0.5 % (0.0-7.0); Hematocrit 34.1 % (36.0-46.0); Hemoglobin 11.3 g/dL (12.2-16.2); Lymphocytes % (auto) 34.8 % (10.0-50.0); Mean Corpuscular Hemoglobin 29.7 pg (28.0-32.0); Mean Corpuscular Volume 89.9 fL (80.0-100.0); Monocytes # (auto) 0.3 10 ^3/uL (0-1.3); Monocytes % (auto) 5.1 % (0.0-12.0); Neutrophils # (auto) 3.4 10 ^3/uL (1.6-8.6); Neutrophils % (auto) 59.3 % (37.0-80.0); Nucleated Red Blood Cells % 0.1 %; Platelet Count (auto) 149 10^3/uL (140-450); Red Blood Cells 3.79 10^6/uL (4.0-5.20); Red Cell Distribution Width 16.3 % (11.8-14.3); White Blood Cell 5.7 10^3/uL (4.4-10.8)
[2024-07-09 15:59] LABS: Alanine Aminotransferase 12 U/L (7-40); Albumin 4.7 g/dL (3.2-4.8); Alkaline Phosphatase 71 U/L (46-116); Anion Gap 14 (5-15); Aspartate Aminotransferase 22 U/L (13-40); BUN/Creatinine Ratio 9.9 (10.0-20.0); Calcium 9.9 mg/dL (8.7-10.4); Carbon Dioxide 21 mmol/L (20-31); Chloride 105 mmol/L (98-107); Potassium 3.9 mmol/L (3.5-5.1); Sodium 140 mmol/L (136-145); Total Protein 7.2 g/dL (5.7-8.2)
[2024-07-09 16:00] LABS: Bilirubin, Total 0.4 mg/dL (0.2-1.0)
[2024-07-09 16:03] LABS: Blood Urea Nitrogen 34 mg/dL (9-23); Glucose 125 mg/dL (74-106)
--- NOTE | 2024-07-09 16:33 | DVH ---
EXAM: XY CHEST PORTABLE TECHNIQUE: Single frontal chest radiograph CLINICAL HISTORY: CENTRAL LINE PLACEMENT COMPARISON: XY CHEST PORTABLE on DOS: 07/09/24 Findings/Impression: Frontal chest radiograph demonstrates that the patient is rotated to the left. No acute osseous or hardwick perficial soft tissue abnormalities. Endotracheal tube terminates 3.9 cm from the tahmina. Enteric tube is visualized overlying the plane of the stomach. Right-sided IJ catheter terminates in the right atrium. The trachea is midline. The cardiac silhouette and mediastinum are within normal limits. Small to moderate left pleural effusion versus positioning. No pneumothorax.
[2024-07-09 16:38] LABS: Base Excess -2.8 mmol/L (-2.0-3.0)
[2024-07-09] MEDS: MIDAZOLAM DRIP 50 mg/50mL 50 ML IV SCH ×2 (17:00→22:31)
[2024-07-09] MEDS: fentaNYL Drip 2500mCg/250mlNS 250 ML IV SCH ×2 (17:00→22:32)
--- NOTE | 2024-07-09 17:04 | DVHPN2 ---
Subjective 07/09 update: patient here for possible symptomatic cholelithiasis and/or chronic constipation causing intractable abdominal painand nausea vomiting. on 07/09 rapid response called as patient recieved enema and was on BSC and while having BM resulting in LOC. patient moved to bed and found to have also had emesis. intubated by H[employer]ICULTURE INSTRUCTOR Ever burton with Dr Wynne and Dr Molina bedside to secure airway. she has 2x more emesis episodes during intubation efforts. OG tube and south inserted. R IJ CVC inserted by Dr Molina. upgraded to ICU. Reviewed: Care Plan, H&P, Labs, Medications, Previous Orders, Radiology Changes from previous H/P or p: No Changes General: Per HPI Objective Vitals Vital Signs Date Time Temp Pulse Resp B/P (MAP) Pulse Ox O2 Delivery O2 Flow Rate FiO2 07/09/24 15:44 74 22 182/113 98 100 07/09/24 13:00 98.0 98.0 07/09/24 08:15 Room Air* 0 Intake/Output Intake and Output 07/09/24 07:00 Intake Total 2050 ml Balance 2050 ml Intake Oral 2000 ml IV Total 50 ml # Voids 2 Exam GEN: intubated sedated HEENT: NC/AT; MMM. CV: RRR, no m/r/g. LUNGS: Decreased breath sound left lungs ABD: Hypoactive bowel sounds, no rigidity no distention, soft EXT: skin Warm, well perfused. no rashes. No clubbing, cyanosis, or edema. NEURO: Centrally reflexes intact Medications Current Medications Medications Dose Ordered Sig/Ginger Route Start Time Stop Time Status Last Admin Dose Admin Amlodipine Besylate 10 mg DAILY PO 07/07/24 10:00 07/07/24 09:04 10 MG Atorvastatin Calcium 40 mg HS PO 07/06/24 22:00 07/08/24 21:09 40 MG Carbamazepine 200 mg BID PO 07/06/24 22:00 07/09/24 10:26 200 MG Furosemide 40 mg DAILY PO 07/07/24 10:00 07/09/24 10:26 40 MG Gabapentin 400 mg BID PO 07/06/24 22:00 Hold Levothyroxine Sodium 75 mcg QAM@0600 PO 07/07/24 06:00 07/09/24 05:20 75 MCG Montelukast Sodium 10 mg HS PO 07/06/24 22:00 07/08/24 21:09 10 MG Pregabalin 75 mg BID PO 07/06/24 22:00 07/09/24 10:26 75 MG Ondansetron HCl 4 mg Q4HP PRN IV 07/06/24 19:00 07/08/24 19:53 4 MG Acetaminophen 650 mg Q6HP PRN PO 07/06/24 19:00 Ceftriaxone Sodium 50 ml @ 100 mls/hr DAILY@09 IV 07/07/24 09:00 07/09/24 10:25 100 MLS/HR Morphine Sulfate 4 mg Q4HPRN PRN IV 07/07/24 12:15 07/08/24 10:11 4 MG Pantoprazole Sodium 40 mg DAILY IV 07/09/24 10:00 07/09/24 10:25 40 MG Docusate Sodium 100 mg BIDPRN PRN PO 07/08/24 12:45 07/09/24 10:25 100 MG Doxycycline Hyclate 100 ml @ 50 mls/hr Q12H IV 07/09/24 15:00 Midazolam HCl 50 ml @ 1 mls/hr Q24H IV 07/09/24 15:15 Hold Fentanyl Citrate 250 ml @ 2.5 mls/hr Q24H IV 07/09/24 15:15 Hold Piperacillin Sod/ Tazobactam Sod 100 ml @ 25 mls/hr Q12H IV 07/09/24 16:00 Nicardipine HCl 250 ml @ 50 mls/hr Q5H IV 07/09/24 16:45 UNV Laboratory Results Laboratory Tests 07/09/24 15:18 Chemistry Test 07/09/24 15:18 Albumin 4.7 g/dL (3.2-4.8) Calcium Level 9.9 mg/dL (8.7-10.4) Total Protein 7.2 g/dL (5.7-8.2) LFT Test 07/09/24 15:18 Alanine Aminotransferase (ALT) 12 U/L (7-40) Alkaline Phosphatase 71 U/L (46-116) Aspartate Amino Transferase (AST) 22 U/L (13-40) Total Bilirubin 0.4 mg/dL (0.2-1.0) Urinalysis Test 07/06/24 19:30 Urine Color Colorless (Yellow) Urine Clarity Clear (Clear) Urine pH 5.0 (5.0-9.0) Urine Specific [place] 1.006 (1.001-1.035) Urine Protein Negative (Negative) Urine Ketones Negative (Negative) Urine Blood Negative /uL (Negative) Urine Nitrite Negative (Negative) Urine Bilirubin Negative (Negative) Urine Urobilinogen Normal mg/dL (Negative) Urine Leukocyte Esterase Negative /uL (Negative) Urine RBC <1 /hpf (0 - 4) Urine Microscopic WBC 2 /HPF (0-5) Urine Squamous Epithelial Cells Few /hpf (<5) Urine Bacteria None seen /hpf (None Seen) Urine Glucose Normal mg/dL (Normal) Blood Gas Results Test 07/09/24 16:26 Arterial Blood pH 7.336 (7.350-7.450) FiO2 % 100.0 Labs and/or images reviewed: Labs reviewed by me, Image(s) reviewed by me Assessment/Plan Assessment/Plan 07/09 update: patient here for possible symptomatic cholelithiasis and/or chronic constipation causing intractable abdominal painand nausea vomiting. on 07/09 rapid response called as patient recieved enema and was on BSC and while having BM resulting in LOC. patient moved to bed and found to have also had emesis. intubated by H[employer]ICULTURE INSTRUCTOR Ever jacksonscope with Dr Wynne and Dr Molina bedside to secure airway. she has 2x more emesis episodes during intubation efforts. OG tube and south inserted. R IJ CVC inserted by Dr Molina. upgraded to ICU. she has central reflexes intact, BP high, decreased breathsounds on left hemithorax with good ETT positioning, hypoactive BS in abdomen, no LE pitting edema. continue treatment for: #Acute hypoxic respiratory failure due to aspiration pneumonia/aspiration pneumonitis- intubated, sedated, on mechanical ventilation consult pulmonology for vent management and bronch eval #intubation for airway protection - sedation with versed /fentanyl #aspiration pneumonia and aspiration pneumonitis - iv zosyn/doxy, OG tube with intermittent low suction. #intractable vomiting due to below - GI following #symptomatic cholelithiasis possible - surgery consulted and following #ruled out cholecysititis #Possible urinary tract infection - on zosyn #Chronic kidney disease : consult nephro #Hypokalemia, stable - monitor #Chronic anemia #History of left kidney mass status post nephrectomy 2021 [facility] #Hypertension - cardene gtt, start GT procardia 30mg and advance as needed to allow weaning off cardene gtt. optimize sedation to ensure BP elevation accurately measured #Diverticulosis #Fatty liver #Persisting constipation - holding laxatives Diet - npo, OG tube suction DVT - lovenox SQ GI - protonix IV ICU full code ULTRASOUND-GUIDED RIGHT INTERNAL JUGULAR CENTRAL VENOUS CANNULATION CPT Codes: 48265 (ultrasound guidance) 53752 (insertion of non-tunneled centrally inserted central venous catheter) 38468 (CXR interpretation) DATE: 07/27/16 PHYSICIAN: sunil molina MD PREOPERATIVE DIAGNOSIS: cholelithiasis POSTOPERATIVE DIAGNOSIS: aspiration pneumonia/pneumonitis PROCEDURE PERFORMED: Limited Ultrasound-guided Right internal jugular central line placement. ANESTHESIA: 2 mL of 1% lidocaine plain. ESTIMATED BLOOD LOSS: less than 5 mL. SPECIMENS: None. COMPLICATIONS: None. INDICATIONS FOR PROCEDURE: The patient is in need of large bore IV access for administration of fluids, including blood products and vasoactive drugs, possible transvenous cardiac pacing and CVP monitoring for hemodynamic instability. DESCRIPTION OF PROCEDURE IN DETAIL: The patient was lying in the Trendelenburg position with head turned 30 degrees away from the insertion site. The skin was thoroughly sponged with chlorhexidine and allowed to dry. All persons involved were shielded with hair nets, face masks and sterile gowns. With sterile-gloved hands the right neck area was draped with the large disposable sterile field provided in the pre-manufactured kit. The skin and subcutaneous tissues superficial to the RIGHT internal jugular vein were anesthetized with 2 mL of 1% lidocaine. The RIGHT internal jugular vein was identified on ultrasound from the angle of the mandible down into the supraclavicular fossa using the linear ultrasound probe in the transverse orientation. The carotid artery was identified and avoided utilizing color-flow. The internal jugular vein was then placed in the center of the ultrasound field and compressed for patency. A movement artifact was identified as the needle was advanced through the skin and advanced toward the vessel. A real time hyperechoic signal revealed visualization of vascular needle entry into the lumen as blood was noted to flashback in the syringe. The needle was then held in place while the guide wire was advanced. The needle was then removed. Direct visualization of guide wire location within the vein was noted on ultrasound indicating proper placement and was document in the electronic medical record chart. A skin dilator was advanced over the guidewire and removed, and the triple-lumen catheter was then advanced over the guide wire into proper position. The guide wire was removed and discarded. The ports were aspirated which showed good blood return and then carefully flushed with normal saline. The catheter was stabilized and sutured to the skin with 2-0 silk at 4 anchor points. A sterile bio-patch and dressing was placed over the catheter, including the insertion site. The patient tolerated the procedure well. A chest x-ray was ordered for position confirmation. I reviewed the image immediately after it was taken at bedside. Post-procedure chest x-ray demonstrates the central line in the superior vena and no evidence of any pneumothorax. An image recording of the procedure accompanies the chart. Plan discussed with: Other My Orders Orders - SUNIL RESENDEZ MD Procedure Category Date Status Time Chest Portable XY 07/09/24 Resulted 16:03 Respiratory Misc. RT 07/09/24 Transmitted Order 16:30 Nicardipine PHA 07/09/24 Logged 25mg/250ml Bag Kit 16:45 Date of Service: Jul 09, 2024 Billing Provider: SUNIL RESENDEZ MD Common Visit Codes: 10216-[id number] CARE 30-74 MIN Secondary Visit Codes: 58107-[id number] CARE PLAN 30 MINUTES, 45261-HWCEEGNT CARE PLAN ADDL 30MIN Procedure Codes: [id number], 51273-SRCKEP NON-TUNNEL CV CATH SUNIL RESENDEZ MD Jul 09, 2024 17:04
[2024-07-09] MEDS: DOXYCYCLINE 100MG/100ML 100 ML IV SCH (17:07)
--- NOTE | 2024-07-09 17:52 | RESUS ---
CODE ASSIST ASSESSSMENT Initial Information Code Assist Date: Jul 09, 2024 Code Assist Time: 14:38 [facility] of Arrest: [facility] Room [facility] 270B Provider Name DR MORAES Time Notified: 14:38 Crash Cart Opened and Supplies: Yes Situation Staff concerned/worried, speci: SaO2 <90, Non-responsive, Change LOC Situation comment: PER [facility] STAFF, PATIENT WAS ON BEDSIDE COMMODE FOR BOWEL MOVEMENT WHEN SHE EXPERIENCED A SYNCOPAL EPISODE. STAFF WAS ABLE TO ASSIST HER BACK INTO BED WHERE SHE HAD AN EPISODE OF YELLOW EMESIS AND BECAME UNRESPONSIVE TO VERBAL/ PAINFUL STIMULI. PATIENT CONTINUED TO HAVE VOMITING EPISODES. PATIENT SPO2 BEGAN TO DECLINE TO 85-88% RA VERBAL ORDER RECEIVED FROM DR MORAES TO INTUBATE FOR AIRWAY PROTECTION. Assessment Temperature (Fahrenheit): 98.0 Blood Pressure Systolic: 204 Blood Pressure Diastolic: 106 Respiratory Rate: 22 O2 Sat by Pulse Oximetry: 85 Recommendations/Interventions Procedures: CXR Portable, Cardiac Monitoring, Inititate ACLS Protocol, Suctioned, Intubated, Bag Mask Outcome Outcome: Transfer to ICU Follow up Report Follow up Report Critical care time 45 mins Team Members Team Members DR DIMITRY JAMISON Date of Service: Jul 09, 2024 Billing Provider: MARTHA MORAES MD Common Visit Codes: 63300-[id number] CARE 30-74 MIN Mela Workman Jul 09, 2024 17:52 MARTHA MORAES MD Jul 10, 2024 11:12
[2024-07-09] MEDS: PIPERACILLIN-TAZOB 3.375GM 100 ML IV SCH (18:45)
[2024-07-09] MEDS: ACETAMINOPHEN 325 MG TAB PO PRN (19:41)
[2024-07-09] MEDS: PHENYLEPHRINE IV 250 ML IV SCH (20:45)
[2024-07-09] MEDS: PHENYLEPHRINE IV 250 ML IV ONE (20:46)
[2024-07-09] MEDS: SODIUM CHLORIDE 0.9% 1,000 ML IV SCH (21:01)
[2024-07-09 21:11] LABS: Potassium 3.9 mmol/L (3.5-5.1); Sodium 144 mmol/L (136-145)
[2024-07-09 21:12] LABS: Anion Gap 12 (5-15); Calcium 9.5 mg/dL (8.7-10.4); Carbon Dioxide 24 mmol/L (20-31)
[2024-07-09 21:17] LABS: BUN/Creatinine Ratio 13.5 (10.0-20.0)
[2024-07-09 21:58] LABS: Blood Urea Nitrogen 44 mg/dL (9-23); Chloride 108 mmol/L (98-107); Glucose 106 mg/dL (74-106); Magnesium 1.5 mg/dL (1.6-2.6)
--- NOTE | 2024-07-09 22:14 | DVHPN2 ---
Progress Note - Dictate Date Seen: Jul 09, 2024 Medical Necessity Reason Pt with a Central, PICC or Fol: No Subjective Patient here for possible symptomatic cholelithiasis but HIDA scan negative and/or chronic constipation causing intractable abdominal painand nausea vomiting. This afternoon around 3 pm rapid response called as patient recieved enema and was on BSC and while having BM resulting in LOC. patient moved to bed and found to have also had emesis. intubated by [employer] .She has 2x more emesis episodes during intubation efforts. OG tube and south inserted. R IJ CVC inserted by Dr Bhatia. upgraded to ICU 110 vital signs Vital Sign Date Time Temp Pulse Resp B/P (MAP) Pulse Ox O2 Delivery O2 Flow Rate FiO2 07/09/24 21:46 85 22 75/45 (55) 99 07/09/24 20:46 100.2 07/09/24 20:05 80 07/09/24 20:00 Mechanical Ventilator+ 07/09/24 08:15 0 Total Intake and Output 07/08/24 07/08/24 07/09/24 15:00 23:00 07:00 Intake Total 50 ml 1300 ml 700 ml Balance 50 ml 1300 ml 700 ml medications Current Medications Medications Dose Ordered Sig/Ginger Route Start Time Stop Time Status Last Admin Dose Admin Amlodipine Besylate 10 mg DAILY PO 07/07/24 10:00 07/07/24 09:04 10 MG Atorvastatin Calcium 40 mg HS PO 07/06/24 22:00 07/08/24 21:09 40 MG Furosemide 40 mg DAILY PO 07/07/24 10:00 07/09/24 10:26 40 MG Gabapentin 400 mg BID PO 07/06/24 22:00 Hold Levothyroxine Sodium 75 mcg QAM@0600 PO 07/07/24 06:00 07/09/24 05:20 75 MCG Montelukast Sodium 10 mg HS PO 07/06/24 22:00 07/08/24 21:09 10 MG Pregabalin 75 mg BID PO 07/06/24 22:00 07/09/24 10:26 75 MG Ondansetron HCl 4 mg Q4HP PRN IV 07/06/24 19:00 07/08/24 19:53 4 MG Acetaminophen 650 mg Q6HP PRN PO 07/06/24 19:00 07/09/24 19:41 650 MG Ceftriaxone Sodium 50 ml @ 100 mls/hr DAILY@09 IV 07/07/24 09:00 07/09/24 10:25 100 MLS/HR Morphine Sulfate 4 mg Q4HPRN PRN IV 07/07/24 12:15 07/08/24 10:11 4 MG Pantoprazole Sodium 40 mg DAILY IV 07/09/24 10:00 07/09/24 10:25 40 MG Docusate Sodium 100 mg BIDPRN PRN PO 07/08/24 12:45 07/09/24 10:25 100 MG Doxycycline Hyclate 100 ml @ 50 mls/hr Q12H IV 07/09/24 15:00 07/09/24 17:07 50 MLS/HR Piperacillin Sod/ Tazobactam Sod 100 ml @ 25 mls/hr Q12H IV 07/09/24 16:00 07/09/24 18:45 25 MLS/HR Nicardipine HCl 250 ml @ 50 mls/hr Q5H IV 07/09/24 17:15 07/09/24 16:42 50 MLS/HR Hydralazine HCl 10 mg Q6HP PRN IV 07/09/24 18:00 Phenylephrine HCl 250 ml @ 30 mls/hr Q8H20M IV 07/09/24 20:15 07/09/24 20:45 30 MLS/HR Sodium Chloride 1,000 ml @ 125 mls/hr Q8H IV 07/09/24 20:15 07/09/24 21:01 125 MLS/HR Midazolam HCl 50 ml @ 1 mls/hr Q24H IV 07/09/24 21:15 Fentanyl Citrate 250 ml @ 2.5 mls/hr Q24H IV 07/09/24 21:15 Carbamazepine 200 mg BID PO 07/09/24 22:00 objective GEN: intubated sedated HEENT: NC/AT; MMM. CV: RRR, no m/r/g. LUNGS: Decreased breath sound ABD: Hypoactive bowel sounds, no rigidity no distention, soft EXT: skin Warm, well perfused. no rashes. No clubbing, cyanosis, or edema. laboratory and microbiology Laboratory Tests 07/09/24 19:05 07/09/24 15:18 Test 07/09/24 19:05 Range/Units Serum Glucose 106 74-106 mg/dL CXR Endotracheal tube terminates 3.9 cm from the tahmina. Enteric tube is visualized overlying the plane of the stomach. Right-sided IJ catheter terminates in the right atrium. The trachea is midline. The cardiac silhouette and mediastinum are within normal limits. Small to moderate left pleural effusion versus positioning. No pneumothorax. Problems(with codes): (1) Abdominal pain (2) Sciatica (3) Lumbar radiculopathy (4) Osteoarthritis (5) Constipation (6) N&V (nausea and vomiting) (7) Cholelithiasis Prognosis PLAN Keep NPO IV fluid hydration, IV antibiotics NG tube to low intermittent suction IV Protonix IV Reglan or Zofran as needed Serial KUB or abdominal x-rays Prognosis remains guarded Dietary Evaluation Review Comments: Continue current plan of care Expected Outcomes/Goals: Pt will meet >75% estimated needs Fu 3-5 days Plan discussed with: Other (Nurse) ASHLEIGH VILLANUEVA MD Jul 09, 2024 22:14
[2024-07-09] MEDS: carBAMazepine 200 MG/10 ML Ud ORAL Susp PO SCH (22:32)
[2024-07-10] VITALS (103 sets, daily range): BP systolic 60–124; BP diastolic 29–70; PULSE 57–92; RESP 9–29; TEMP 96.8–100.2; O2SAT 95–100
[2024-07-10] MEDS: NOREPINEPHRINE 8 MG/250ML KIT 250 ML IV SCH
[2024-07-10] MEDS: MAGNESIUM SULFATE 1GM/100ML 100 ML IV ONE (00:50)
[2024-07-10 03:26] LABS: Basophils # (auto) 0 10 ^3/uL (0-0.2); Basophils % (auto) 0.6 % (0.0-2.0); Eosinophils # (auto) 0.1 10 ^3/uL (0-0.8); Hematocrit 30.5 % (36.0-46.0); Hemoglobin 10.1 g/dL (12.2-16.2); Lymphocytes # (auto) 0.3 10 ^3/uL (0.4-5.4); Lymphocytes % (auto) 4.3 % (10.0-50.0); Mean Corpuscular Hemoglobin 29.2 pg (28.0-32.0); Mean Corpuscular Hgb Conc. 33.2 g/dL (32.0-36.0); Mean Corpuscular Volume 88.2 fL (80.0-100.0); Monocytes # (auto) 0.4 10 ^3/uL (0-1.3); Neutrophils # (auto) 5.3 10 ^3/uL (1.6-8.6); Neutrophils % (auto) 87.1 % (37.0-80.0); Nucleated Red Blood Cells % 0.1 %; Platelet Count (auto) 172 10^3/uL (140-450); Red Blood Cells 3.46 10^6/uL (4.0-5.20); Red Cell Distribution Width 15.9 % (11.8-14.3); White Blood Cell 6.1 10^3/uL (4.4-10.8)
[2024-07-10 03:47] LABS: Bilirubin, Total 0.7 mg/dL (0.2-1.0)
[2024-07-10 04:13] LABS: Alanine Aminotransferase < 9 U/L (7-40); Albumin 3.9 g/dL (3.2-4.8); Alkaline Phosphatase 53 U/L (46-116); Anion Gap 10 (5-15); Aspartate Aminotransferase 17 U/L (13-40); BUN/Creatinine Ratio 13.1 (10.0-20.0); Blood Urea Nitrogen 42 mg/dL (9-23); Calcium 8.8 mg/dL (8.7-10.4); Carbon Dioxide 22 mmol/L (20-31); Chloride 111 mmol/L (98-107); Glucose 103 mg/dL (74-106); Sodium 143 mmol/L (136-145); Total Protein 5.7 g/dL (5.7-8.2)
--- NOTE | 2024-07-10 09:28 | DVH ---
CHEST RADIOGRAPH Indication: pt intubated Technique: Single frontal chest radiograph Comparison: XY CHEST PORTABLE on DOS: 07/09/24, XY CHEST PORTABLE on DOS: 07/09/24, XY CHEST PORTABLE o n DOS: 07/09/24 FINDINGS: Lines and Tubes: Unchanged. Lungs: Increased interstitial opacities. Pleura: No effusion. No pneumothorax. Cardiomediastinal contours: Unremarkable Bones: No acute osseous abnormality. IMPRESSION: No interval change.
--- NOTE | 2024-07-10 09:48 | MEDREC ---
[facility] ASP Intervention Section I [facility] ASP Intervention: Duplication of therapy (PLEASE CONSIDER DISCONTINUING CEFTRIAXONE DUE TO DUPLICATION WITH ZOSYN (MORE BROAD SPECTRUM)) [facility] Jul 10, 2024 09:47
[2024-07-10] MEDS: POTASSIUM CHL 20MEQ/50ML 50 ML IV SCH (14:29)
--- NOTE | 2024-07-10 16:42 | DVH ---
Procedure: CT HEAD WITHOUT CONTRAST Study Date and Requested Time: 07/10/2024 04:11 PM History: ALTERED Comparison: None Dose: CTDI: 64.35 mGy DLP: 1140.4 mGycm Technique: Multiplanar images obtained through the brain without intravenous contrast. Findings: Mild diffuse brain atrophy. Mild to moderate chronic small vessel ischemic changes. Bilateral basal g anglia physiologic calcification. Punctate focus of hypodensity over the left thalamus with hypodense focus over the right cerebellum. There is calcification of the falx. Peripheral linear calcification over the right distal transverse sinus. No hemorrhages, masses, mass effect, midline shift, herniation or cytotoxic edema following a large v ascular territory. No intra-axial or extra-axial fluid collections. No evidence of hydrocephalus. The basal cisterns are patent. Nonspecific partially empty sella. The cerebellar tonsils are in normal position. The cerebellum is u nremarkable. The orbits and globes are unremarkable. Mild Polypoid mucoperiosteal thickening of the left maxillary sinus. Otherwise, the paranasal sinuses and mastoids are clear. There appears to be prominent vascu lar channels within the calvarium. Multiple punctate scalp hyperdensity/calcifications. There are sec retions within the nasopharynx. Impression: Punctate focus of hypodensity over the left thalamus with hypodense focus of the right cerebellar whi ch may represent lacunar infarct of unknown chronicity. Otherwise, no evidence for acute intracrania l abnormalities. If symptoms persist, MRI may be considered for further evaluation.
--- NOTE | 2024-07-10 17:07 | DVH ---
Procedure: CT CHST AB PEL WO CON-NO IV/ORAL Study Date and Requested Time : 07/10/2024 04:12 PM History: VOMITING; CHOLELITHIASIS Comparison: CT CT AB PEL WO CON-NO ORAL OR IV on DOS: 07/06/24, CT CT AB PEL WO CON-NO ORAL OR IV on D OS: 03/11/24, CT CT AB PEL WO CON-NO ORAL OR IV on DOS: 08/02/22 Dose: CTDI: 21.72 mGy DLP: 1359.46 mGycm Technique: Multiplanar images obtained through the chest, abdomen and pelvis without contrast Findings: Chest: Thyroid gland is not well-visualized. Heart size is within normal limits. No evidence of aortic aneurysm. Pulmonary trunk is normal in size . No significant lymphadenopathy. No pneumothorax or pleural effusion. Is ground-glass and solid opacities of the left upper lobe and l eft lower lobe with minimal involvement of the right lower lobe. The soft tissues are unremarkable. No destructive osseous lesions are noted. Endotracheal tube terminates about 0.7 cm above the tahmina. The enteric tube terminates over the dist al stomach. Abdomen and pelvis: Liver, spleen, pancreas and adrenal glands unremarkable. Gallstones within a moderately distended gal lbladder with no CT evidence of acute cholecystitis. 3.6 cm right renal exophytic cyst. No right renal hydronephrosis. The left kidney is not visualized a nd appears to be surgically absent. Urinary bladder is decompressed with Gastelum catheter in place. [place] nany is not definitely visualized. Question hysterectomy /uterine atrophy. Stomach is unremarkable. Small bowel loops are unremarkable. Appendix is unremarkable. Moderate amoun t of fecal material within the colon. A tube/ wire is noted looped within the rectum. No evidence of intraperitoneal free air or free fluid. No evidence of aortic aneurysm. Mild atherosclerotic calcification of the aorta. No significant lymphadenopathy. Small fat containing umbilical hernia. Minimal abdominal and pelvic wall edema. Mild chronic loss of superior vertebral body height of L2. Diffuse demineralization. Impression: Ground-glass and solid consolidations involving the left upper and lower lobe with minimal involvemen t of the right lower lobe which may represent multifocal pneumonia. Cholelithiasis with no CT evidence of acute cholecystitis. If there is concern for cholecystitis, ul trasound may be considered for further evaluation. Moderate amount of fecal material within the colon. Right renal cyst. Endotracheal tube terminates about 0.7 cm above the tahmina. Consider pulling back about 1-2 cm for m ore optimal positioning.
--- NOTE | 2024-07-10 17:20 | DVHPN2 ---
Subjective Update 07/10 07/09 patient here for possible symptomatic cholelithiasis and/or chronic constipation causing intractable abdominal painand nausea vomiting. on 07/09 rapid response called as patient recieved enema and was on BSC and while having BM resulting in LOC. patient moved to bed and found to have also had emesis. intubated by [employer] HELPER Ever burton with Dr Wynne and Dr Bhatia bedside to secure airway. she has 2x more emesis episodes during intubation efforts. OG tube and south inserted. R IJ CVC inserted by Dr Bhatia. upgraded to ICU. 07/10 patient in ICU today. Patient was sedated intubated on Versed and faint. Pupillary response absent due to sedation. Need to evaluate cause of recurrent nausea and vomiting we will consider getting CT abdomen pelvis. Patient was given fluids overnight and that improved the heart rate. Yesterday patient was started on Cardene drip due to hypertensive but overnight she was becoming hypotensive Cardene drip was turned off and continued to be hypotensive requiring Kris-Synephrine drip Reviewed: Care Plan, H&P, Labs, Medications, Previous Orders, Radiology Changes from previous H/P or p: No Changes General: Per HPI Objective Vitals Vital Signs Date Time Temp Pulse Resp B/P (MAP) Pulse Ox O2 Delivery O2 Flow Rate FiO2 07/10/24 17:15 106/59 07/10/24 15:40 72 26 100 35 07/10/24 14:46 99.3 210.7 07/10/24 14:00 Mechanical Ventilator+ 07/09/24 08:15 0 Intake/Output Intake and Output 07/10/24 07:00 Intake Total 3273.225 ml Output Total 1725 ml Balance 1548.225 ml Intake Oral 120 ml IV Total 3153.225 ml Output Urine Total 1725 ml Exam GEN: intubated sedated HEENT: NC/AT; MMM. CV: RRR, no m/r/g. LUNGS: Decreased breath sound left lungs ABD: Hypoactive bowel sounds, no rigidity no distention, soft EXT: skin Warm, well perfused. no rashes. No clubbing, cyanosis, or edema. NEURO: Centrally reflexes intact Medications Current Medications Medications Dose Ordered Sig/Ginger Route Start Time Stop Time Status Last Admin Dose Admin Amlodipine Besylate 10 mg DAILY PO 07/07/24 10:00 07/07/24 09:04 10 MG Atorvastatin Calcium 40 mg HS PO 07/06/24 22:00 07/09/24 22:35 40 MG Furosemide 40 mg DAILY PO 07/07/24 10:00 07/10/24 11:11 40 MG Gabapentin 400 mg BID PO 07/06/24 22:00 Hold Levothyroxine Sodium 75 mcg QAM@0600 PO 07/07/24 06:00 07/10/24 05:35 75 MCG Montelukast Sodium 10 mg HS PO 07/06/24 22:00 07/09/24 22:35 10 MG Pregabalin 75 mg BID PO 07/06/24 22:00 07/10/24 11:09 75 MG Ondansetron HCl 4 mg Q4HP PRN IV 07/06/24 19:00 07/08/24 19:53 4 MG Acetaminophen 650 mg Q6HP PRN PO 07/06/24 19:00 07/09/24 19:41 650 MG Ceftriaxone Sodium 50 ml @ 100 mls/hr DAILY@09 IV 07/07/24 09:00 07/10/24 11:09 100 MLS/HR Morphine Sulfate 4 mg Q4HPRN PRN IV 07/07/24 12:15 07/08/24 10:11 4 MG Pantoprazole Sodium 40 mg DAILY IV 07/09/24 10:00 07/10/24 11:09 40 MG Docusate Sodium 100 mg BIDPRN PRN PO 07/08/24 12:45 07/09/24 10:25 100 MG Doxycycline Hyclate 100 ml @ 50 mls/hr Q12H IV 07/09/24 15:00 07/10/24 17:12 50 MLS/HR Piperacillin Sod/ Tazobactam Sod 100 ml @ 25 mls/hr Q12H IV 07/09/24 16:00 07/10/24 17:13 25 MLS/HR Nicardipine HCl 250 ml @ 50 mls/hr Q5H IV 07/09/24 17:15 07/09/24 16:42 50 MLS/HR Hydralazine HCl 10 mg Q6HP PRN IV 07/09/24 18:00 Phenylephrine HCl 250 ml @ 30 mls/hr Q8H20M IV 07/09/24 20:15 07/10/24 17:15 97.5 MLS/HR Sodium Chloride 1,000 ml @ 125 mls/hr Q8H IV 07/09/24 20:15 07/10/24 05:31 125 MLS/HR Midazolam HCl 50 ml @ 1 mls/hr Q24H IV 07/09/24 21:15 07/10/24 11:22 5 MLS/HR Fentanyl Citrate 250 ml @ 2.5 mls/hr Q24H IV 07/09/24 21:15 07/10/24 11:17 10 MLS/HR Carbamazepine 200 mg BID PO 07/09/24 22:00 07/10/24 11:11 200 MG Norepinephrine Bitartrate 250 ml @ 3.75 mls/hr Q24H IV 07/10/24 00:00 Potassium Chloride 50 ml @ 25 mls/hr Q2H IV 07/10/24 14:15 07/10/24 18:14 07/10/24 17:13 25 MLS/HR Laboratory Results Laboratory Tests 07/10/24 03:10 Chemistry Test 07/09/24 19:05 07/10/24 03:10 Calcium Level 9.5 mg/dL (8.7-10.4) 8.8 mg/dL (8.7-10.4) Magnesium Level 1.5 mg/dL (1.6-2.6) L Albumin 3.9 g/dL (3.2-4.8) Total Protein 5.7 g/dL (5.7-8.2) LFT Test 07/10/24 03:10 Alanine Aminotransferase (ALT) < 9 U/L (7-40) Alkaline Phosphatase 53 U/L (46-116) Aspartate Amino Transferase (AST) 17 U/L (13-40) Total Bilirubin 0.7 mg/dL (0.2-1.0) Urinalysis Test 07/06/24 19:30 Urine Color Colorless (Yellow) Urine Clarity Clear (Clear) Urine pH 5.0 (5.0-9.0) Urine Specific [place] 1.006 (1.001-1.035) Urine Protein Negative (Negative) Urine Ketones Negative (Negative) Urine Blood Negative /uL (Negative) Urine Nitrite Negative (Negative) Urine Bilirubin Negative (Negative) Urine Urobilinogen Normal mg/dL (Negative) Urine Leukocyte Esterase Negative /uL (Negative) Urine RBC <1 /hpf (0 - 4) Urine Microscopic WBC 2 /HPF (0-5) Urine Squamous Epithelial Cells Few /hpf (<5) Urine Bacteria None seen /hpf (None Seen) Urine Glucose Normal mg/dL (Normal) Blood Gas Results Test 07/10/24 07:41 Arterial Blood pH 7.279 (7.350-7.450) FiO2 % 60.0 Microbiology Microbiology Date/Time Source Procedure Growth Status 07/09/24 15:25 Trachea Gram Stain - Final Resulted 07/09/24 15:25 Trachea Respiratory Culture - Preliminary Resulted Labs and/or images reviewed: Labs reviewed by me, Image(s) reviewed by me Assessment/Plan Assessment/Plan 07/10 patient in ICU today. Patient was sedated intubated on Versed and faint. Pupillary response absent due to sedation. Need to evaluate cause of recurrent nausea and vomiting we will consider getting CT abdomen pelvis. Patient was given fluids overnight and that improved the heart rate. Yesterday patient was started on Cardene drip due to hypertensive but overnight she was becoming hypotensive Cardene drip was turned off and continued to be hypotensive requiring Kris-Synephrine drip #Acute hypoxic respiratory failure due to aspiration pneumonia/aspiration pneumonitis- intubated, sedated, on mechanical ventilation consult pulmonology for vent management and bronch eval #intubation for airway protection - sedation with versed /fentanyl #aspiration pneumonia and aspiration pneumonitis - iv zosyn/doxy, OG tube with intermittent low suction. #intractable vomiting due to below - GI following #shock, septic possible - on neosephrine gtt but hypotension could be from sedatives as well #symptomatic cholelithiasis possible - surgery consulted and following #ruled out cholecysititis #Possible urinary tract infection - on zosyn #Chronic kidney disease : consult nephro #Hypokalemia, stable - monitor #Chronic anemia #History of left kidney mass status post nephrectomy 2021 [facility] #Hypertension - no meds as pt is hypotensive. #Diverticulosis #Fatty liver #Persisting constipation - holding laxatives Diet - npo, OG tube suction (low intermittent) DVT - lovenox SQ GI - protonix IV ICU full code Plan discussed with: Other My Orders Orders - LINDA RESENDEZ MD Procedure Category Date Status Time Hydralazine Injection PHA 3/27/25 In Process (Apresoline Inject 18:00 Phenylephrine Iv PHA 07/09/24 In Process (Phenylephrine/Ns) 20:15 Sodium Chloride 0.9% PHA 07/09/24 In Process 20:15 Midazolam Drip 50 PHA 07/09/24 In Process Mg/50ml (Versed Drip 5 21:15 Fentanyl Drip PHA 07/09/24 In Process 2500mcg/250mlns 21:15 Initiate Vte RADHAMES 07/09/24 In Process Prophylaxis 21:43 Abg W/ Co-Ox RT 07/10/24 Logged 07:32 Chest Xray 1 View XY 07/10/24 Resulted 07:58 Potassium Chl PHA 07/10/24 In Process 20meq/50ml (Potassium 14:[address] 07/10/24 Resulted 12:16 Chst Ab Pel Wo Con-No CT 07/10/24 Resulted Iv/Oral 13:53 Date of Service: Jul 10, 2024 Billing Provider: LINDA RESENDEZ MD Common Visit Codes: [id number] CARE 30-74 MIN LINDA RESENDEZ MD Jul 10, 2024 17:20
--- NOTE | 2024-07-10 18:33 | DVHPN2 ---
Progress Note Date Seen: Jul 10, 2024 Medical Necessity Reason Pt with a Central, PICC or Fol: Yes The following are medically ne: Central Line, South Catheter Reason for south catheter: Strict I&O Subjective Patient reports: Feels worse (Patient was intubated due to acute distress transferred to the ICU requiring pressors) Review of Systems: RESPIRATORY:Abnormal Objective vital signs Vital Sign Date Time Temp Pulse Resp B/P (MAP) Pulse Ox O2 Delivery O2 Flow Rate FiO2 07/10/24 18:00 99.3 91 14 96/59 (71) 98 99.3 07/10/24 16:00 35 07/10/24 16:00 Mechanical Ventilator+ 07/09/24 08:15 0 Total Intake and Output 07/09/24 07/09/24 07/10/24 14:59 22:59 06:59 Intake Total 664.975 ml 2364.50 ml Output Total 1000 ml 725 ml Balance -335.025 ml 1639.50 ml medications Current Medications Medications Dose Ordered Sig/Ginger Route Start Time Stop Time Status Last Admin Dose Admin Amlodipine Besylate 10 mg DAILY PO 07/07/24 10:00 07/07/24 09:04 10 MG Atorvastatin Calcium 40 mg HS PO 07/06/24 22:00 07/09/24 22:35 40 MG Furosemide 40 mg DAILY PO 07/07/24 10:00 07/10/24 11:11 40 MG Gabapentin 400 mg BID PO 07/06/24 22:00 Hold Levothyroxine Sodium 75 mcg QAM@0600 PO 07/07/24 06:00 07/10/24 05:35 75 MCG Montelukast Sodium 10 mg HS PO 07/06/24 22:00 07/09/24 22:35 10 MG Pregabalin 75 mg BID PO 07/06/24 22:00 07/10/24 11:09 75 MG Ondansetron HCl 4 mg Q4HP PRN IV 07/06/24 19:00 07/08/24 19:53 4 MG Acetaminophen 650 mg Q6HP PRN PO 07/06/24 19:00 07/09/24 19:41 650 MG Ceftriaxone Sodium 50 ml @ 100 mls/hr DAILY@09 IV 07/07/24 09:00 07/10/24 11:09 100 MLS/HR Morphine Sulfate 4 mg Q4HPRN PRN IV 07/07/24 12:15 07/08/24 10:11 4 MG Pantoprazole Sodium 40 mg DAILY IV 07/09/24 10:00 07/10/24 11:09 40 MG Docusate Sodium 100 mg BIDPRN PRN PO 07/08/24 12:45 07/09/24 10:25 100 MG Doxycycline Hyclate 100 ml @ 50 mls/hr Q12H IV 07/09/24 15:00 07/10/24 17:12 50 MLS/HR Piperacillin Sod/ Tazobactam Sod 100 ml @ 25 mls/hr Q12H IV 07/09/24 16:00 07/10/24 17:13 25 MLS/HR Nicardipine HCl 250 ml @ 50 mls/hr Q5H IV 07/09/24 17:15 07/09/24 16:42 50 MLS/HR Hydralazine HCl 10 mg Q6HP PRN IV 07/09/24 18:00 Phenylephrine HCl 250 ml @ 30 mls/hr Q8H20M IV 07/09/24 20:15 07/10/24 17:15 97.5 MLS/HR Sodium Chloride 1,000 ml @ 125 mls/hr Q8H IV 07/09/24 20:15 07/10/24 05:31 125 MLS/HR Midazolam HCl 50 ml @ 1 mls/hr Q24H IV 07/09/24 21:15 07/10/24 11:22 5 MLS/HR Fentanyl Citrate 250 ml @ 2.5 mls/hr Q24H IV 07/09/24 21:15 07/10/24 11:17 10 MLS/HR Carbamazepine 200 mg BID PO 07/09/24 22:00 07/10/24 11:11 200 MG Norepinephrine Bitartrate 250 ml @ 3.75 mls/hr Q24H IV 07/10/24 00:00 Examination: GENERAL:Abnormal, LUNGS:Abnormal, ABDOMEN:Abnormal laboratory and microbiology Laboratory Tests 07/10/24 03:10 Test 07/10/24 03:10 Range/Units Serum Glucose 103 74-106 mg/dL Microbiology Date/Time Source Procedure Growth Status 07/09/24 15:25 Trachea Gram Stain - Final Resulted 07/09/24 15:25 Trachea Respiratory Culture - Preliminary Resulted Problem List/Assessment/Plan Problem List/Assessment/Plan Acute kidney injury hemodynamic CKd 4 ; with solitary kidney s/p nephrectomy abdominal pain, Diverticulosis Cholelithiasis without cholecystitis constipation anemia Acute respiratory failure with multifocal pneumonia Septic shock Constipation with fecal impaction status post enema CT shows no renal obstruction UA unremarkable rec IVF Potassium replacement today Raghav continue pressors to maintain mean arterial pressure greater than 65 avoid hypotension GI w/u ongoing rec maintain hb > 8.0 due to advanced ckd Plan discussed with: Other Dietary Evaluation Review Comments: Continue current plan of care Expected Outcomes/Goals: Pt will meet >75% estimated needs Fu 3-5 days Critical Care Time (mins): 33 RONALDO GALEANO MD Jul 10, 2024 18:33
[2024-07-10] MEDS: SODIUM CHLORIDE 0.9% 1,000 ML IV SCH (22:27)
[2024-07-11] VITALS (104 sets, daily range): BP systolic 68–121; BP diastolic 40–67; PULSE 68–80; RESP 9–27; TEMP 97.5–99.7; O2SAT 95–100
--- NOTE | 2024-07-11 00:05 | DVHINCON2 ---
Date of service: Jul 10, 2024 Referring Physician Jannette Reason for Consultation Elevated troponin, 1 episode of SVT History of Present Illness This is a 74 year old female with a PMH of HTN, CHF, asthma, HLD who was brought in by EMS on 07/06 with complaints of right flank pain x 3 days. Patient reported the pain was radiating to back. Patient reported she had her left kidney removed. Patient also noted urinary frequency with no pain. CT ABD PEL showed hepatomegaly with fatty infiltration, cholelithiasis, fecal retention in the colon consistent with constipation, umbilical hernia containing fat, colonic diverticulosis without acute diverticulitis. Yesterday afternoon (07/09) around 3pm a rapid response was called as the patient was receiving an enema and was on the bedside commode having a BM the patient suddenly had LOC. Patient was subsequently intubated for airway protection. Patient had one episode of SVT today and therefore I am asked to consult on this patient. Family History: Patient reports no known family medical history. Allergies: Coded Allergies: NO KNOWN ALLERGIES (Unverified , 11/11/18) Home Meds Active Scripts Methylprednisolone (Medrol Dosepak) 4 Mg Gerald, 4 MG PO UD, #21 TAB UAD Prov:DIANE FRANKLIN NP 03/17/24 Docusate Sodium (Colace) 100 Mg Cap, 1 CAP PO BID, #60 CAP 2 Refills Prov:JUAN DOUGLAS MD 08/09/22 Hydrocodone-Acetaminophen (Hydrocodone Bitartrate/AC 5-325 mg) 1 Tab Tab, 1 TAB PO Q6HP PRN, #30 TAB Prov:JUAN DOUGLAS MD 08/09/22 Ondansetron (Zofran) 4 Mg Tab, 4 MG PO Q4HP PRN, #30 TAB Prov:JUAN DOUGLAS MD 08/09/22 Reported Medications Febuxostat (Febuxostat) 40 Mg Tab, 1 TAB PO DAILY for 30 Days, #30 07/07/24 Diclofenac Sodium (Diclofenac Sodium Ec) 50 Mg Tab, 1 TAB PO Q12HR for 30 Days, #60 07/07/24 Epoetin Julito (Epogen) 20,000 Unit/Ml Inj, 1 ML SC Q30D for 60 Days, #2 07/07/24 Gabapentin (Gabapentin) 400 Mg Cap, 1 CAP PO TID for 40 Days, #120 07/07/24 B-Complex W/ C & Folic Acid ([facility] Rx) Tab, 1 TAB PO DAILY for 30 Days, #30 03/12/24 Fluticasone Propionate (Nasal) (Fluticasone Propionate Na) 50 Mcg/Act Spr, 1 SPRAY EACHNOSTRI BID for 30 Days, #16 03/12/24 Oxycodone W/ Acetaminophen (Apap/Oxycodone) 1 Tab Tab, 1 TAB PO Q8HR for 30 Days, #90 03/12/24 Pregabalin (Lyrica) 75 Mg Cap, 1 CAP PO Q12HR for 30 Days, #60 03/12/24 Losartan Potassium (Losartan Potassium) 50 Mg Tab, 0.5 TAB PO DAILY for 100 Days, #50 03/12/24 Furosemide (Furosemide) 40 Mg Tab, 1 TAB PO QAM PRN for 30 Days, #30 03/12/24 Ferrous Sulfate (Ferosul) 325 Mg Tab, 1 TAB PO 3X/WEEK for 84 Days, #36 03/12/24 Clonazepam (Clonazepam) 0.5 Mg Tab, 1 TAB PO BIDPRN for 88 Days, #176 03/12/24 Carbamazepine (Carbamazepine) 200 Mg Tab, 1 TAB PO BID for 90 Days, #180 03/12/24 Oxycodone Hcl (OxyCONTIN ER Tablet) 10 Mg Tb, 1 TAB PO BID, #60 TAB 03/12/24 Omeprazole ([facility] Omeprazole Odt) 20 Mg Tab, 1 TAB PO BID 08/03/22 Montelukast Sodium (MONTELUKAST SODIUM) 10 Mg Tab, 1 TAB PO DAILY for 100 Days, #100 08/03/22 Atorvastatin Calcium (ATORVASTATIN CALCIUM) 40 Mg Tab, 1 TAB PO DAILY for 90 Days, #90 06/15/18 Amlodipine Besylate (Amlodipine Besylate) 10 Mg Tab, 1 TAB PO DAILY, #30 TAB 5 Refills 06/15/18 Levothyroxine Sodium (Levothyroxine Sodium) 50 Mcg Tab, 75 MCG PO QAM for 30 Days, #30 01/25/17 Venlafaxine Hydrochloride (Venlafaxine Hcl) 75 Mg Tab, 200 MG PO DAILY, TAB 01/25/17 Current Medications Current Medications Medications (Trade) Dose Ordered Sig/Ginger Route PRN Reason Start Time Stop Time Status Last Admin Norepinephrine Bitartrate 250 ml @ 3.75 mls/hr Q24H IV 07/10/24 00:00 Potassium Chloride 50 ml @ 25 mls/hr Q2H IV 07/10/24 14:15 07/10/24 18:14 DC 07/10/24 17:13 Sodium Chloride 1,000 ml @ 100 mls/hr Q10H IV 07/10/24 20:15 07/10/24 22:27 Review of Systems Unable to review: Intubated on ventilator. Vital Signs Vital Signs Date Time Temp Pulse Resp B/P (MAP) Pulse Ox O2 Delivery O2 Flow Rate FiO2 07/10/24 20:48 90/40 07/10/24 20:10 86 29 98 35 07/10/24 20:00 Mechanical Ventilator+ 07/10/24 19:15 99.1 99.1 07/09/24 08:15 0 Physical Exam GENERAL: Intubated on ventilator. LUNGS: Decreased breath sounds. CARDIOVASCULAR: Heart sounds are good. ABDOMEN: Soft. Labs/Diagnostic Data Labs Test 07/10/24 19:38 07/10/24 07:41 07/10/24 03:10 07/09/24 19:05 Range/Units Troponin I High Sensitivity 29 </=34 ng/L Blood Gas Specimen Type Arterial Blood Gas Sample Site Left radial Blood Gas Patient Temperature 37.0 Arterial Blood Date Drawn [id number] Arterial Blood pH 7.279 L 7.350-7.450 Arterial Blood Partial Pressure CO2 42.2 32.0-45.0 mmHg Arterial Blood Partial Pressure O2 125.8 H 83.0-108.0 mmHg Arterial Blood HCO3 19.3 L 21.0-28.0 mmol/L Arterial Blood Oxygen Saturation 97.8 94.0-98.0 % Arterial Blood Base Excess -7.0 L -2.0-3.0 mmol/L Arterial Blood Oxyhemoglobin 97.2 94.0-98.0 % Arterial Blood Carboxyhemoglobin 0.3 L 0.5-1.5 % Arterial Blood Methemoglobin 0.3 0.0-1.5 % Farhat Test Modified Blood Gas Total Hemoglobin 9.70 L 12.0-16.0 g/dL Blood Gas Set Respiration Rate 22.0 Blood Gas Modality Vent - ac FiO2 % 60.0 Blood Gas Tidal Volume 400.0 Blood Gas PEEP or CPAP 8.0 White Blood Count 6.1 4.4-10.8 10^3/uL Red Blood Count 3.46 L 4.0-5.20 10^6/uL Hemoglobin 10.1 L 12.2-16.2 g/dL Hematocrit 30.5 #L 36.0-46.0 % Mean Corpuscular Volume 88.2 80.0-100.0 fL Mean Corpuscular Hemoglobin 29.2 28.0-32.0 pg Mean Corpuscular Hemoglobin Concent 33.2 32.0-36.0 g/dL Red Cell Distribution Width 15.9 H 11.8-14.3 % Platelet Count 172 140-450 10^3/uL Mean Platelet Volume 6.9 6.9-10.8 fL Neutrophils (%) (Auto) 87.1 H 37.0-80.0 % Lymphocytes (%) (Auto) 4.3 L 10.0-50.0 % Monocytes (%) (Auto) 7.0 0.0-12.0 % Eosinophils (%) (Auto) 1.0 0.0-7.0 % Basophils (%) (Auto) 0.6 0.0-2.0 % Neutrophils # (Auto) 5.3 1.6-8.6 10 ^3/uL Lymphocytes # (Auto) 0.3 L 0.4-5.4 10 ^3/uL Monocytes # (Auto) 0.4 0-1.3 10 ^3/uL Eosinophils # (Auto) 0.1 0-0.8 10 ^3/uL Basophils # (Auto) 0 0-0.2 10 ^3/uL Nucleated Red Blood Cells 0.1 % Sodium Level 143 136-145 mmol/L Potassium Level 3.0 L 3.5-5.1 mmol/L Chloride Level 111 H 98-107 mmol/L Carbon Dioxide Level 22 20-31 mmol/L Anion Gap 10 5-15 Blood Urea Nitrogen 42 H 9-23 mg/dL Creatinine 3.21 H 0.550-1.02 mg/dL Glomerular Filtration Rate Calc 15 >90 mL/min BUN/Creatinine Ratio 13.1 10.0-20.0 Serum Glucose 103 74-106 mg/dL Calcium Level 8.8 8.7-10.4 mg/dL Total Bilirubin 0.7 0.2-1.0 mg/dL Aspartate Amino Transferase (AST) 17 13-40 U/L Alanine Aminotransferase (ALT) < 9 7-40 U/L Alkaline Phosphatase 53 46-116 U/L Total Protein 5.7 5.7-8.2 g/dL Albumin 3.9 3.2-4.8 g/dL Magnesium Level 1.5 L 1.6-2.6 mg/dL Test 07/09/24 14:44 07/06/24 19:30 Range/Units POC Glucose 153 H 70-106 mg/dl Urine Color Colorless Yellow Urine Clarity Clear Clear Urine pH 5.0 5.0-9.0 Urine Specific [place] 1.006 1.001-1.035 Urine Protein Negative Negative Urine Ketones Negative Negative Urine Blood Negative Negative /uL Urine Nitrite Negative Negative Urine Bilirubin Negative Negative Urine Urobilinogen Normal Negative mg/dL Urine Leukocyte Esterase Negative Negative /uL Urine RBC <1 0 - 4 /hpf Urine Microscopic WBC 2 0-5 /HPF Urine Squamous Epithelial Cells Few <5 /hpf Urine Bacteria None seen None Seen /hpf Urine Glucose Normal Normal mg/dL Microbiology Date/Time Source Procedure Growth Status 07/09/24 15:25 Trachea Gram Stain - Final Resulted 07/09/24 15:25 Trachea Respiratory Culture - Preliminary Resulted Assessment Acute hypoxic respiratory failure due to aspiration pneumonia/aspiration pneumonitis. Aspiration pneumonia. Intractable vomiting. Shock, septic possible. Symptomatic cholelithiasis possible. Chronic kidney disease. Hypokalemia. Chronic anemia. History of left kidney mass status post nephrectomy 2021 [facility]. Hypertension. Diverticulosis. Fatty liver. Persisting constipation. Elevated troponin. Episode of SVT. Plan/Recommendation I agree with your ongoing assessment and care of plan. Amlodipine. Lipitor. IV antibiotics as ordered. Diuretics with Lasix. IV Hydralazine for SBP >170. Morphine for pain management. Nicardipine drip. GI prophylactics. Vasopressors for hemodynamic support. Additional plan as per the hospital course. Critical care time of 90 minutes provided to include time spent evaluation of patient at bedside, when appropriate patient/family education for diagnosis, treatment plan, review of pertinent medical information and discussion of care with specialty providers and PCP. Mechanical ventilator parameters, treatment and adjustments have personally been reviewed by me and treatment plan by manager of transportation has also been reviewed. Plan discussed with: Other MARÍA MIGUEL MD Jul 10, 2024 22:51
[2024-07-11 04:22] LABS: Basophils # (auto) 0 10 ^3/uL (0-0.2); Basophils % (auto) 0.3 % (0.0-2.0); Eosinophils # (auto) 0 10 ^3/uL (0-0.8); Eosinophils % (auto) 0.4 % (0.0-7.0); Hematocrit 26.2 % (36.0-46.0); Lymphocytes # (auto) 1.3 10 ^3/uL (0.4-5.4); Lymphocytes % (auto) 13.5 % (10.0-50.0); Mean Corpuscular Hemoglobin 30.2 pg (28.0-32.0); Mean Corpuscular Hgb Conc. 34.4 g/dL (32.0-36.0); Mean Corpuscular Volume 87.7 fL (80.0-100.0); Monocytes # (auto) 0.8 10 ^3/uL (0-1.3); Monocytes % (auto) 7.6 % (0.0-12.0); Neutrophils # (auto) 7.8 10 ^3/uL (1.6-8.6); Neutrophils % (auto) 78.2 % (37.0-80.0); Platelet Count (auto) 122 10^3/uL (140-450); Red Blood Cells 2.98 10^6/uL (4.0-5.20)
[2024-07-11 04:37] LABS: Sodium 145 mmol/L (136-145)
[2024-07-11 04:38] LABS: Anion Gap 10 (5-15); Carbon Dioxide 22 mmol/L (20-31)
[2024-07-11 04:43] LABS: BUN/Creatinine Ratio 13.5 (10.0-20.0); Glucose 81 mg/dL (74-106)
[2024-07-11 04:45] LABS: Phosphorus 4.2 mg/dL (2.4-5.1)
[2024-07-11 04:59] LABS: Blood Urea Nitrogen 42 mg/dL (9-23); Calcium 8.2 mg/dL (8.7-10.4); Chloride 113 mmol/L (98-107)
[2024-07-11 07:07] LABS: Base Excess -7.3 mmol/L (-2.0-3.0)
[2024-07-11] MEDS: PHENYLEPHRINE HCL 10 MG/ML VL ONE (07:22)
--- NOTE | 2024-07-11 11:14 | DVHPN2 ---
Progress Note Date Seen: Jul 11, 2024 Medical Necessity Reason Pt with a Central, PICC or Fol: Yes The following are medically ne: Central Line, South Catheter Reason for south catheter: Strict I&O Subjective Patient reports: Other (intubated ) Review of Systems: RESPIRATORY:Abnormal Objective vital signs Vital Sign Date Time Temp Pulse Resp B/P (MAP) Pulse Ox O2 Delivery O2 Flow Rate FiO2 07/11/24 10:26 110/61 07/11/24 10:14 68 27 97 35 07/11/24 07:30 98.4 209.1 07/11/24 06:00 Mechanical Ventilator+ 07/09/24 08:15 0 Total Intake and Output 07/10/24 07/10/24 07/11/24 15:00 23:00 07:00 Intake Total 1831.25 ml 1673.00 ml 2014.00 ml Output Total 775 ml 1450 ml Balance 1831.25 ml 898.00 ml 564.00 ml medications Current Medications Medications Dose Ordered Sig/Ginger Route Start Time Stop Time Status Last Admin Dose Admin Amlodipine Besylate 10 mg DAILY PO 07/07/24 10:00 07/07/24 09:04 10 MG Atorvastatin Calcium 40 mg HS PO 07/06/24 22:00 07/10/24 22:11 40 MG Furosemide 40 mg DAILY PO 07/07/24 10:00 07/11/24 09:51 40 MG Gabapentin 400 mg BID PO 07/06/24 22:00 Hold Levothyroxine Sodium 75 mcg QAM@0600 PO 07/07/24 06:00 07/11/24 06:00 75 MCG Montelukast Sodium 10 mg HS PO 07/06/24 22:00 07/10/24 22:14 10 MG Pregabalin 75 mg BID PO 07/06/24 22:00 07/11/24 09:51 75 MG Ondansetron HCl 4 mg Q4HP PRN IV 07/06/24 19:00 07/08/24 19:53 4 MG Acetaminophen 650 mg Q6HP PRN PO 07/06/24 19:00 07/09/24 19:41 650 MG Ceftriaxone Sodium 50 ml @ 100 mls/hr DAILY@09 IV 07/07/24 09:00 07/11/24 09:49 100 MLS/HR Morphine Sulfate 4 mg Q4HPRN PRN IV 07/07/24 12:15 07/08/24 10:11 4 MG Pantoprazole Sodium 40 mg DAILY IV 07/09/24 10:00 07/11/24 09:50 40 MG Docusate Sodium 100 mg BIDPRN PRN PO 07/08/24 12:45 07/09/24 10:25 100 MG Doxycycline Hyclate 100 ml @ 50 mls/hr Q12H IV 07/09/24 15:00 07/11/24 03:07 50 MLS/HR Piperacillin Sod/ Tazobactam Sod 100 ml @ 25 mls/hr Q12H IV 07/09/24 16:00 07/11/24 07:25 25 MLS/HR Nicardipine HCl 250 ml @ 50 mls/hr Q5H IV 07/09/24 17:15 07/09/24 16:42 50 MLS/HR Hydralazine HCl 10 mg Q6HP PRN IV 07/09/24 18:00 Phenylephrine HCl 250 ml @ 30 mls/hr Q8H20M IV 07/09/24 20:15 07/11/24 10:26 60 MLS/HR Midazolam HCl 50 ml @ 1 mls/hr Q24H IV 07/09/24 21:15 07/11/24 07:56 8 MLS/HR Fentanyl Citrate 250 ml @ 2.5 mls/hr Q24H IV 07/09/24 21:15 07/11/24 07:56 12.5 MLS/HR Carbamazepine 200 mg BID PO 07/09/24 22:00 07/11/24 09:51 200 MG Norepinephrine Bitartrate 250 ml @ 3.75 mls/hr Q24H IV 07/10/24 00:00 Sodium Chloride 1,000 ml @ 100 mls/hr Q10H IV 07/10/24 20:15 07/10/24 22:27 100 MLS/HR Examination: GENERAL:Abnormal, LUNGS:Abnormal, ABDOMEN:Abnormal laboratory and microbiology Laboratory Tests 07/11/24 03:37 Test 07/11/24 03:37 Range/Units Serum Glucose 81 74-106 mg/dL Microbiology Date/Time Source Procedure Growth Status 07/09/24 15:25 Trachea Gram Stain - Final Resulted 07/09/24 15:25 Trachea Respiratory Culture - Preliminary Resulted Problem List/Assessment/Plan Problem List/Assessment/Plan Acute kidney injury hemodynamic CKd 4 ; with solitary kidney s/p nephrectomy abdominal pain, Diverticulosis Cholelithiasis without cholecystitis constipation anemia Acute respiratory failure with multifocal pneumonia Septic shock Constipation with fecal impaction status post enema CT shows no renal obstruction UA unremarkable rec IVF Raghav continue pressors to maintain mean arterial pressure greater than 65 avoid hypotension GI w/u ongoing rec maintain hb > 8.0 due to advanced ckd start epogen 3x a week and iron panel Plan discussed with: Other Dietary Evaluation Review Comments: Continue current plan of care Expected Outcomes/Goals: Pt will meet >75% estimated needs Fu 3-5 days RONALDO GALEANO MD Jul 11, 2024 11:14
--- NOTE | 2024-07-11 12:16 | DVHNC2 ---
Procedure - Bronchoscopy procedure note: Indications: Aspiration pneumonia, Possible mucous plugging. Medicines: See [employer] notes. Complications: None Procedure: Patient medications and allergies reviewed. Emergent procedure, 2 physician consent. Medically necessary to evaluate for any mucous plugging. Patient identification and proposed procedure were verified prior to the procedure by the physician, and a nurse, and the respiratory therapist in ICU room. The heart rate, respiratory rate, oxygen saturations, blood pressure, adequacy of pulmonary ventilation, and response to care were monitored throughout the procedure. The physical status of the patient was reassessed after the procedure. After obtaining informed consent, the bronchoscope was introduced through the endotracheal tube and advanced into the trachea bronchial tree of both lungs. The procedure was accomplished without difficulty. The patient tolerated the procedure well. Findings: The trachea is in normal caliber. The tahmina is sharp. The tracheobronchial tree of the right lung was examined to at least the first subsegmental level. The bronchial mucosa and anatomy in the right lung are normal. There are no endobronchial lesions. There was copious whitish secretions from right main stem bronchus onward throughout R6-R10. Right middle lobe (RML) Bronchoalveolar lavage (BAL) obtained. RML BAL sent for gram stain and culture. The left upper lobe, lingula, and left lower lobe were examined to at least the first subsegmental level. Bronchial mucosa and anatomy in the left upper lobe and lingula are normal. There were no endobronchial lesions. There was scant whitish secretions from left main stem bronchus onward throughout L1-L10. There was no active bleeding at the completion of the procedure. Estimated blood loss: Less than 5 mL. Impression: Atelectasis due to mucous plugging Mucous plugging from R6-R10 RML BAL performed Recommendation: Follow-up RML BAL results. Procedure codes: 67576, bronchoscopy, rigid and flexible, including fluoroscopic guidance, one performed; with bronchial endobronchial broncho-alveolar lavage, single or multiple sites ABIMBOLA PAYNE MD Jul 11, 2024 12:16
--- NOTE | 2024-07-11 12:25 | DVH ---
CHEST RADIOGRAPH Indication: pt intubated Technique: Single frontal view of the chest was obtained COMPARISON: XY CHEST XRAY 1 VIEW on DOS: 07/10/24, XY CHEST PORTABLE on DOS: 07/09/24, XY CHEST PORTABL E on DOS: 07/09/24 FINDINGS: Lines and Tubes: Endotracheal tube 2.8 cm above the tahmina. NG tube coursing into the stomach but not seen distally. No pneumothorax. Mild atelectasis left lung base. Lungs: Clear Pleura: No effusion. No pneumothorax. Cardiomediastinal contours: Unremarkable Bones: Unremarkable IMPRESSION: 1. Endotracheal tube 2.8 cm above the tahmina
[2024-07-11] MEDS: EPOETIN ALFA-EPBX 4,000 UNIT/ML VIAL SC SCH (14:34)
--- NOTE | 2024-07-11 14:49 | DVHPN2 ---
Progress Note Date Seen: Jul 11, 2024 Medical Necessity Reason Pt with a Central, PICC or Fol: Yes The following are medically ne: Central Line, South Catheter Reason for south catheter: Strict I&O Objective vital signs Vital Sign Date Time Temp Pulse Resp B/P (MAP) Pulse Ox O2 Delivery O2 Flow Rate FiO2 07/11/24 14:33 85/48 07/11/24 13:59 73 25 100 35 07/11/24 07:30 98.4 209.1 07/11/24 06:00 Mechanical Ventilator+ 07/09/24 08:15 0 Total Intake and Output 07/10/24 07/10/24 07/11/24 15:00 23:00 07:00 Intake Total 1831.25 ml 1673.00 ml 2014.00 ml Output Total 775 ml 1450 ml Balance 1831.25 ml 898.00 ml 564.00 ml medications Current Medications Medications Dose Ordered Sig/Ginger Route Start Time Stop Time Status Last Admin Dose Admin Amlodipine Besylate 10 mg DAILY PO 07/07/24 10:00 07/07/24 09:04 10 MG Atorvastatin Calcium 40 mg HS PO 07/06/24 22:00 07/10/24 22:11 40 MG Furosemide 40 mg DAILY PO 07/07/24 10:00 07/11/24 09:51 40 MG Gabapentin 400 mg BID PO 07/06/24 22:00 Hold Levothyroxine Sodium 75 mcg QAM@0600 PO 07/07/24 06:00 07/11/24 06:00 75 MCG Montelukast Sodium 10 mg HS PO 07/06/24 22:00 07/10/24 22:14 10 MG Pregabalin 75 mg BID PO 07/06/24 22:00 07/11/24 09:51 75 MG Ondansetron HCl 4 mg Q4HP PRN IV 07/06/24 19:00 07/08/24 19:53 4 MG Acetaminophen 650 mg Q6HP PRN PO 07/06/24 19:00 07/09/24 19:41 650 MG Morphine Sulfate 4 mg Q4HPRN PRN IV 07/07/24 12:15 07/08/24 10:11 4 MG Pantoprazole Sodium 40 mg DAILY IV 07/09/24 10:00 07/11/24 09:50 40 MG Docusate Sodium 100 mg BIDPRN PRN PO 07/08/24 12:45 07/09/24 10:25 100 MG Doxycycline Hyclate 100 ml @ 50 mls/hr Q12H IV 07/09/24 15:00 07/11/24 14:29 50 MLS/HR Piperacillin Sod/ Tazobactam Sod 100 ml @ 25 mls/hr Q12H IV 07/09/24 16:00 07/11/24 07:25 25 MLS/HR Nicardipine HCl 250 ml @ 50 mls/hr Q5H IV 07/09/24 17:15 07/09/24 16:42 50 MLS/HR Hydralazine HCl 10 mg Q6HP PRN IV 07/09/24 18:00 Phenylephrine HCl 250 ml @ 30 mls/hr Q8H20M IV 07/09/24 20:15 07/11/24 14:33 60 MLS/HR Midazolam HCl 50 ml @ 1 mls/hr Q24H IV 07/09/24 21:15 07/11/24 07:56 8 MLS/HR Fentanyl Citrate 250 ml @ 2.5 mls/hr Q24H IV 07/09/24 21:15 07/11/24 07:56 12.5 MLS/HR Carbamazepine 200 mg BID PO 07/09/24 22:00 07/11/24 09:51 200 MG Norepinephrine Bitartrate 250 ml @ 3.75 mls/hr Q24H IV 07/10/24 00:00 Sodium Chloride 1,000 ml @ 100 mls/hr Q10H IV 07/10/24 20:15 07/11/24 14:34 100 MLS/HR Epoetin Julito-epbx 4,000 unit TUTHSA SC 07/11/24 11:15 07/11/24 14:34 4,000 UNIT laboratory and microbiology Laboratory Tests 07/11/24 03:37 Test 07/11/24 03:37 Range/Units Serum Glucose 81 74-106 mg/dL Microbiology Date/Time Source Procedure Growth Status 07/09/24 15:25 Trachea Gram Stain - Final Resulted 07/09/24 15:25 Trachea Respiratory Culture - Preliminary Resulted Problem List/Assessment/Plan Problem List/Assessment/Plan INTUBATED CARDIORESPIRATORY EVENT ON VASOPRESSOR SUPPORT POSSIBLE ASPIRATION CONTINUE CLOSE OBSERVATION HIGH RISK FOR SURGERY FAMILY UPDATED Plan discussed with: Patient, Other Dietary Evaluation Review Comments: Continue current plan of care Expected Outcomes/Goals: Pt will meet >75% estimated needs Fu 3-5 days SWATHI VILLANUEVA MD Jul 11, 2024 14:49
[2024-07-11] MEDS: PHENYLEPHRINE INJ 80 MG in SODIUM CHL 0.9% 242 ML IV SCH (15:30)
[2024-07-11] MEDS: NOREPINEPHRINE BITARTRATE 32 MG in SODIUM CHL 0.9% 218 ML IV SCH (15:30)
--- NOTE | 2024-07-11 17:31 | DVHPN2 ---
Subjective Update 07/10 07/09 patient here for possible symptomatic cholelithiasis and/or chronic constipation causing intractable abdominal painand nausea vomiting. on 07/09 rapid response called as patient recieved enema and was on BSC and while having BM resulting in LOC. patient moved to bed and found to have also had emesis. intubated by [employer] Ever burton with Dr Wynne and Dr Bhatia bedside to secure airway. she has 2x more emesis episodes during intubation efforts. OG tube and south inserted. R IJ CVC inserted by Dr Bhatia. upgraded to ICU. 07/10 patient in ICU today. Patient was sedated intubated on Versed and faint. Pupillary response absent due to sedation. Need to evaluate cause of recurrent nausea and vomiting we will consider getting CT abdomen pelvis. Patient was given fluids overnight and that improved the heart rate. Yesterday patient was started on Cardene drip due to hypertensive but overnight she was becoming hypotensive Cardene drip was turned off and continued to be hypotensive requiring Kris-Synephrine drip Reviewed: Care Plan, H&P, Labs, Medications, Previous Orders, Radiology Changes from previous H/P or p: No Changes General: Per HPI Objective Vitals Vital Signs Date Time Temp Pulse Resp B/P (MAP) Pulse Ox O2 Delivery O2 Flow Rate FiO2 07/11/24 17:00 99.3 78 21 106/58 (74) 100 210.7 07/11/24 15:59 35 07/11/24 08:00 Mechanical Ventilator+ 07/09/24 08:15 0 Intake/Output Intake and Output 07/11/24 07:00 Intake Total 5518.25 ml Output Total 2225 ml Balance 3293.25 ml Intake Oral 60 ml IV Total 5458.25 ml Output Urine Total 2225 ml Exam GEN: intubated sedated HEENT: NC/AT; MMM. CV: RRR, no m/r/g. LUNGS: Decreased breath sound left lungs ABD: Hypoactive bowel sounds, no rigidity no distention, soft EXT: skin Warm, well perfused. no rashes. No clubbing, cyanosis, or edema. NEURO: Centrally reflexes intact Medications Current Medications Medications Dose Ordered Sig/Ginger Route Start Time Stop Time Status Last Admin Dose Admin Amlodipine Besylate 10 mg DAILY PO 07/07/24 10:00 07/07/24 09:04 10 MG Atorvastatin Calcium 40 mg HS PO 07/06/24 22:00 07/10/24 22:11 40 MG Furosemide 40 mg DAILY PO 07/07/24 10:00 07/11/24 09:51 40 MG Gabapentin 400 mg BID PO 07/06/24 22:00 Hold Levothyroxine Sodium 75 mcg QAM@0600 PO 07/07/24 06:00 07/11/24 06:00 75 MCG Montelukast Sodium 10 mg HS PO 07/06/24 22:00 07/10/24 22:14 10 MG Pregabalin 75 mg BID PO 07/06/24 22:00 07/11/24 09:51 75 MG Ondansetron HCl 4 mg Q4HP PRN IV 07/06/24 19:00 07/08/24 19:53 4 MG Acetaminophen 650 mg Q6HP PRN PO 07/06/24 19:00 07/09/24 19:41 650 MG Morphine Sulfate 4 mg Q4HPRN PRN IV 07/07/24 12:15 07/08/24 10:11 4 MG Pantoprazole Sodium 40 mg DAILY IV 07/09/24 10:00 07/11/24 09:50 40 MG Docusate Sodium 100 mg BIDPRN PRN PO 07/08/24 12:45 07/09/24 10:25 100 MG Doxycycline Hyclate 100 ml @ 50 mls/hr Q12H IV 07/09/24 15:00 07/11/24 14:29 50 MLS/HR Piperacillin Sod/ Tazobactam Sod 100 ml @ 25 mls/hr Q12H IV 07/09/24 16:00 07/11/24 07:25 25 MLS/HR Nicardipine HCl 250 ml @ 50 mls/hr Q5H IV 07/09/24 17:15 07/09/24 16:42 50 MLS/HR Hydralazine HCl 10 mg Q6HP PRN IV 07/09/24 18:00 Midazolam HCl 50 ml @ 1 mls/hr Q24H IV 07/09/24 21:15 07/11/24 14:51 8 MLS/HR Fentanyl Citrate 250 ml @ 2.5 mls/hr Q24H IV 07/09/24 21:15 07/11/24 07:56 12.5 MLS/HR Carbamazepine 200 mg BID PO 07/09/24 22:00 07/11/24 09:51 200 MG Sodium Chloride 1,000 ml @ 100 mls/hr Q10H IV 07/10/24 20:15 07/11/24 14:34 100 MLS/HR Epoetin Julito-epbx 4,000 unit TUTHSA SC 07/11/24 11:15 07/11/24 14:34 4,000 UNIT Phenylephrine HCl 80 mg/Sodium Chloride 250 ml @ 7.5 mls/hr Q24H IV 07/11/24 15:30 Norepinephrine Bitartrate 32 mg/ Sodium Chloride 250 ml @ 0.938 mls/ hr Q24H IV 07/11/24 15:30 Laboratory Results Laboratory Tests 07/11/24 03:37 Chemistry Test 07/11/24 03:37 Calcium Level 8.2 mg/dL (8.7-10.4) L Phosphorus Level 4.2 mg/dL (2.4-5.1) Urinalysis Test 07/06/24 19:30 Urine Color Colorless (Yellow) Urine Clarity Clear (Clear) Urine pH 5.0 (5.0-9.0) Urine Specific [place] 1.006 (1.001-1.035) Urine Protein Negative (Negative) Urine Ketones Negative (Negative) Urine Blood Negative /uL (Negative) Urine Nitrite Negative (Negative) Urine Bilirubin Negative (Negative) Urine Urobilinogen Normal mg/dL (Negative) Urine Leukocyte Esterase Negative /uL (Negative) Urine RBC <1 /hpf (0 - 4) Urine Microscopic WBC 2 /HPF (0-5) Urine Squamous Epithelial Cells Few /hpf (<5) Urine Bacteria None seen /hpf (None Seen) Urine Glucose Normal mg/dL (Normal) Blood Gas Results Test 07/11/24 07:02 Arterial Blood pH 7.266 (7.350-7.450) FiO2 % 35.0 Microbiology Microbiology Date/Time Source Procedure Growth Status 07/09/24 15: Trachea Gram Stain - Final Resulted 07/09/24 15:25 Trachea Respiratory Culture - Preliminary Resulted Labs and/or images reviewed: Labs reviewed by me, Image(s) reviewed by me Assessment/Plan Assessment/Plan 07/11 patient intubated sedated on Versed fentanyl Rocephin drips. Central venous plexus absent due to sedation. CT head with chronic findings yesterday. CT chest abdomen pelvis we will also findings similar to admission. Imaging has not given any further indication of cause of current condition. Heart rate is improved and we will convert patient to Levophed. Pulmonology consulted, patient had large amounts of emesis during intubation and we will likely need brown, defer to palm. #Acute hypoxic respiratory failure due to aspiration pneumonia/aspiration pneumonitis- intubated, sedated, on mechanical ventilation consult pulmonology for vent management and bronch eval #intubation for airway protection - sedation with versed /fentanyl #aspiration pneumonia and aspiration pneumonitis - iv zosyn/doxy, OG tube with intermittent low suction. #intractable vomiting due to below - GI following #shock, septic possible - on Levophed drip now (we will stop neosephrine gtt) #symptomatic cholelithiasis possible - surgery consulted and following; GI consulted and following #ruled out cholecysititis #Possible urinary tract infection - on zosyn/toxin #Chronic kidney disease : consult nephro #Hypokalemia, stable - monitor #Chronic anemia #History of left kidney mass status post nephrectomy 2021 [facility] #Hypertension - no meds as pt is hypotensive. #Diverticulosis #Fatty liver #Persisting constipation - holding laxatives Diet - npo, Clinimix enteral OG feeds (stops if residual volume more than 500 cc) DVT - lovenox SQ GI - protonix IV ICU full code Plan discussed with: Other My Orders Orders - LINDA RESENDEZ MD Procedure Category Date Status Time * Cardiology Consult CONS 07/10/24 Transmitted 17:48 Sodium Chloride 0.9% PHA 07/10/24 In Process 20:15 Abg W/ Co-Ox RT 07/11/24 Logged 07:03 Chest Xray 1 View XY 07/11/24 Resulted 08:18 *Consult CONS 07/11/24 Transmitted / 08:51 Sodium Chl 0.9% PHA 07/11/24 In Process (Ns... 15:30 Sodium Chl 0.9% PHA 07/11/24 In Process (Ns... 15:30 Date of Service: Jul 11, 2024 Billing Provider: LINDA RESENDEZ MD Common Visit Codes: 62341-[id number] CARE 30-74 MIN LINDA RESENDEZ MD Jul 11, 2024 17:31
[2024-07-11] MEDS ORDERED: CLINIMIX PER PHARMACY 0 ML IV SCH (20:45)
[2024-07-11] MEDS: POLYETHYLENE GLYCOL 17 GM PWDR PO ONE (22:45)
--- NOTE | 2024-07-11 22:45 | DVHPN2 ---
Progress Note - Dictate Date Seen: Jul 11, 2024 Medical Necessity Reason Pt with a Central, PICC or Fol: Yes The following are medically ne: Central Line, South Catheter Reason for south catheter: Strict I&O Subjective Patient seen in ICU 110 Intubated and sedated Mild elevation in troponins Patient has multiple focal pneumonia on IV antibiotics Patient is being treated with lactulose and MiraLax for her constipation vital signs Vital Sign Date Time Temp Pulse Resp B/P (MAP) Pulse Ox O2 Delivery O2 Flow Rate FiO2 07/11/24 22:18 70 22 94/57 (69) 100 30 07/11/24 20:00 98.4 209.1 07/11/24 18:00 Mechanical Ventilator+ 07/09/24 08:15 0 Total Intake and Output 07/10/24 07/10/24 07/11/24 15:00 23:00 07:00 Intake Total 1831.25 ml 1673.00 ml 2014.00 ml Output Total 775 ml 1450 ml Balance 1831.25 ml 898.00 ml 564.00 ml medications Current Medications Medications Dose Ordered Sig/Ginger Route Start Time Stop Time Status Last Admin Dose Admin Amlodipine Besylate 10 mg DAILY PO 07/07/24 10:00 07/07/24 09:04 10 MG Atorvastatin Calcium 40 mg HS PO 07/06/24 22:00 07/10/24 22:11 40 MG Furosemide 40 mg DAILY PO 07/07/24 10:00 07/11/24 09:51 40 MG Gabapentin 400 mg BID PO 07/06/24 22:00 Hold Levothyroxine Sodium 75 mcg QAM@0600 PO 07/07/24 06:00 07/11/24 06:00 75 MCG Montelukast Sodium 10 mg HS PO 07/06/24 22:00 07/10/24 22:14 10 MG Pregabalin 75 mg BID PO 07/06/24 22:00 07/11/24 09:51 75 MG Ondansetron HCl 4 mg Q4HP PRN IV 07/06/24 19:00 07/08/24 19:53 4 MG Acetaminophen 650 mg Q6HP PRN PO 07/06/24 19:00 07/09/24 19:41 650 MG Morphine Sulfate 4 mg Q4HPRN PRN IV 07/07/24 12:15 07/08/24 10:11 4 MG Pantoprazole Sodium 40 mg DAILY IV 07/09/24 10:00 07/11/24 09:50 40 MG Docusate Sodium 100 mg BIDPRN PRN PO 07/08/24 12:45 07/09/24 10:25 100 MG Doxycycline Hyclate 100 ml @ 50 mls/hr Q12H IV 07/09/24 15:00 07/11/24 14:29 50 MLS/HR Piperacillin Sod/ Tazobactam Sod 100 ml @ 25 mls/hr Q12H IV 07/09/24 16:00 07/11/24 07:25 25 MLS/HR Nicardipine HCl 250 ml @ 50 mls/hr Q5H IV 07/09/24 17:15 07/09/24 16:42 50 MLS/HR Hydralazine HCl 10 mg Q6HP PRN IV 07/09/24 18:00 Midazolam HCl 50 ml @ 1 mls/hr Q24H IV 07/09/24 21:15 07/11/24 14:51 8 MLS/HR Fentanyl Citrate 250 ml @ 2.5 mls/hr Q24H IV 07/09/24 21:15 07/11/24 07:56 12.5 MLS/HR Carbamazepine 200 mg BID PO 07/09/24 22:00 07/11/24 09:51 200 MG Sodium Chloride 1,000 ml @ 100 mls/hr Q10H IV 07/10/24 20:15 07/11/24 14:34 100 MLS/HR Epoetin Julito-epbx 4,000 unit TUTHSA SC 07/11/24 11:15 07/11/24 14:34 4,000 UNIT Phenylephrine HCl 80 mg/Sodium Chloride 250 ml @ 7.5 mls/hr Q24H IV 07/11/24 15:30 Norepinephrine Bitartrate 32 mg/ Sodium Chloride 250 ml @ 0.938 mls/ hr Q24H IV 07/11/24 15:30 Amino Acids 0 ml @ 0 mls/hr PER PHARMACY IV 07/11/24 20:45 UNV objective GEN: intubated sedated HEENT: NC/AT; MMM. CV: RRR, no m/r/g. LUNGS: Decreased breath sound ABD: Hypoactive bowel sounds, no rigidity no distention, soft EXT: skin Warm, well perfused. no rashes. No clubbing, cyanosis, or edema. laboratory and microbiology Laboratory Tests 07/11/24 03:37 Test 07/11/24 03:37 Range/Units Serum Glucose 81 74-106 mg/dL CT CHEST ABD PELVIS Impression: Ground-glass and solid consolidations involving the left upper and lower lobe with minimal involvement of the right lower lobe which may represent multifocal pneumonia. Cholelithiasis with no CT evidence of acute cholecystitis. If there is concern for cholecystitis, ultrasound may be considered for further evaluation. Moderate amount of fecal material within the colon. Right renal cyst. Endotracheal tube terminates about 0.7 cm above the tahmina. Consider pulling back about 1-2 cm for more optimal positioning. Problems(with codes): (1) N&V (nausea and vomiting) (2) Cholelithiasis (3) Constipation (4) Abdominal pain (5) Sepsis due to urinary tract infection Prognosis Plan Continue IV antibiotics Continue supportive care Start nutritional supplements I will give her lactulose and MiraLax for her constipation Dietary Evaluation Review Comments: Continue current plan of care Expected Outcomes/Goals: Pt will meet >75% estimated needs Fu 3-5 days Plan discussed with: Other (ICU Nurse) ASHLEIGH VILLANUEVA MD Jul 11, 2024 22:45
--- NOTE | 2024-07-11 23:25 | DVHINCON2 ---
Date of service: Jul 11, 2024 Referring Physician Nella Bhatia MD Reason for Consultation Acute hypoxic respiratory failure requiring mechanical ventilator History of Present Illness A 74-year-old woman with PMHx of asthma, hypertension, CHF, and hyperlipidemia who presented to ED on 07/06/24 for evaluation of right-sided flank pain x 3 days. Patient reported a 3-day history of sharp right-sided flank pain with associated dysuria and urinary frequency as well as occasional chills. Denied hematuria. No nausea or vomiting. No other acute complaints. Patient was admitted for further care. Pulmonary consultation is requested for evaluation and management of acute hypoxic respiratory failure on mechanical ventilator. Review of Systems: 14-point review of systems negative unless otherwise noted above. Past Medical History: Asthma, hypertension, CHF, and hyperlipidemia Past Surgical History: Hysterectomy Medications: Reviewed. Allergies: No known drug allergies. Family History: No family history of premature CAD. No family history of lung disorders. Social History: Nonsmoker. No alcohol or illicit drug use. Family History: Patient reports no known family medical history. Allergies: Coded Allergies: NO KNOWN ALLERGIES (Unverified , 11/11/18) Home Meds Active Scripts Methylprednisolone (Medrol Dosepak) 4 Mg Gerald, 4 MG PO UD, #21 TAB UAD Prov:DIANE FRANKLIN NP 03/17/24 Docusate Sodium (Colace) 100 Mg Cap, 1 CAP PO BID, #60 CAP 2 Refills Prov:JUAN DOUGLAS MD 08/09/22 Hydrocodone-Acetaminophen (Hydrocodone Bitartrate/AC 5-325 mg) 1 Tab Tab, 1 TAB PO Q6HP PRN, #30 TAB Prov:JUAN DOUGLAS MD 08/09/22 Ondansetron (Zofran) 4 Mg Tab, 4 MG PO Q4HP PRN, #30 TAB Prov:JUAN DOUGLAS MD 08/09/22 Reported Medications Febuxostat (Febuxostat) 40 Mg Tab, 1 TAB PO DAILY for 30 Days, #30 07/07/24 Diclofenac Sodium (Diclofenac Sodium Ec) 50 Mg Tab, 1 TAB PO Q12HR for 30 Days, #60 07/07/24 Epoetin Julito (Epogen) 20,000 Unit/Ml Inj, 1 ML SC Q30D for 60 Days, #2 07/07/24 Gabapentin (Gabapentin) 400 Mg Cap, 1 CAP PO TID for 40 Days, #120 07/07/24 B-Complex W/ C & Folic Acid (Rebecca-Lilly Rx) Tab, 1 TAB PO DAILY for 30 Days, #30 03/12/24 Fluticasone Propionate (Nasal) (Fluticasone Propionate Na) 50 Mcg/Act Spr, 1 SPRAY EACHNOSTRI BID for 30 Days, #16 03/12/24 Oxycodone W/ Acetaminophen (Apap/Oxycodone) 1 Tab Tab, 1 TAB PO Q8HR for 30 Days, #90 03/12/24 Pregabalin (Lyrica) 75 Mg Cap, 1 CAP PO Q12HR for 30 Days, #60 03/12/24 Losartan Potassium (Losartan Potassium) 50 Mg Tab, 0.5 TAB PO DAILY for 100 Days, #50 03/12/24 Furosemide (Furosemide) 40 Mg Tab, 1 TAB PO QAM PRN for 30 Days, #30 03/12/24 Ferrous Sulfate (Ferosul) 325 Mg Tab, 1 TAB PO 3X/WEEK for 84 Days, #36 03/12/24 Clonazepam (Clonazepam) 0.5 Mg Tab, 1 TAB PO BIDPRN for 88 Days, #176 03/12/24 Carbamazepine (Carbamazepine) 200 Mg Tab, 1 TAB PO BID for 90 Days, #180 03/12/24 Oxycodone Hcl (OxyCONTIN ER Tablet) 10 Mg Tb, 1 TAB PO BID, #60 TAB 03/12/24 Omeprazole ([facility] Omeprazole Odt) 20 Mg Tab, 1 TAB PO BID 08/03/22 Montelukast Sodium (MONTELUKAST SODIUM) 10 Mg Tab, 1 TAB PO DAILY for 100 Days, #100 08/03/22 Atorvastatin Calcium (ATORVASTATIN CALCIUM) 40 Mg Tab, 1 TAB PO DAILY for 90 Days, #90 06/15/18 Amlodipine Besylate (Amlodipine Besylate) 10 Mg Tab, 1 TAB PO DAILY, #30 TAB 5 Refills 06/15/18 Levothyroxine Sodium (Levothyroxine Sodium) 50 Mcg Tab, 75 MCG PO QAM for 30 Days, #30 01/25/17 Venlafaxine Hydrochloride (Venlafaxine Hcl) 75 Mg Tab, 200 MG PO DAILY, TAB 01/25/17 Current Medications Current Medications Medications (Trade) Dose Ordered Sig/Ginger Route PRN Reason Start Time Stop Time Status Last Admin Epoetin Julito-epbx (Retacrit) 4,000 unit TUTHSA SC 07/11/24 11:15 07/11/24 14:34 Phenylephrine HCl 80 mg/Sodium Chloride 250 ml @ 7.5 mls/hr Q24H IV 07/11/24 15:30 Norepinephrine Bitartrate 32 mg/ Sodium Chloride 250 ml @ 0.938 mls/ hr Q24H IV 07/11/24 15:30 Amino Acids 0 ml @ 0 mls/hr PER PHARMACY IV 07/11/24 20:45 UNV Lactulose 30 ml BID PO 07/12/24 10:00 Vital Signs Vital Signs Date Time Temp Pulse Resp B/P (MAP) Pulse Ox O2 Delivery O2 Flow Rate FiO2 07/11/24 22:18 70 22 94/57 (69) 100 30 07/11/24 20:00 98.4 209.1 07/11/24 18:00 Mechanical Ventilator+ 07/09/24 08:15 0 Physical Exam Gen.: Patient lying in bed in medical ICU. Sedated, intubated on mechanical ventilator. Head: Normocephalic, atraumatic. Eyes: PERRLA. Ears: Normal external anatomy. Throat: Endotracheal tube and orogastric tube in place. Neck: Supple, trachea midline. Chest: Transmitted breath sounds bilaterally. Decreased air entry bilaterally. No wheezing. Bibasilar crackles. Cardiovascular: Positive S1, positive S2. Regular rate and rhythm. Abdomen: Positive bowel sounds in all 4 quadrants. Soft, nontender, nondistended. : Gastelum in place. Normal external genitalia. Rectal: Deferred. Skin: Warm, dry. Intact. Extremities: 2+ radial pulses bilaterally. No lower extremity edema. Neuro: Sedated. Labs/Diagnostic Data Labs Test 07/11/24 07:02 07/11/24 03:37 07/10/24 19:38 07/10/24 03:10 Range/Units Blood Gas Specimen Type Arterial Blood Gas Sample Site Right radial Blood Gas Patient Temperature 37.0 Arterial Blood Date Drawn [id number] Arterial Blood pH 7.266 L 7.350-7.450 Arterial Blood Partial Pressure CO2 43.3 32.0-45.0 mmHg Arterial Blood Partial Pressure O2 83.7 83.0-108.0 mmHg Arterial Blood HCO3 19.3 L 21.0-28.0 mmol/L Arterial Blood Oxygen Saturation 94.8 94.0-98.0 % Arterial Blood Base Excess -7.3 L -2.0-3.0 mmol/L Arterial Blood Oxyhemoglobin 94.0 94.0-98.0 % Arterial Blood Carboxyhemoglobin 0.2 L 0.5-1.5 % Arterial Blood Methemoglobin 0.6 0.0-1.5 % Farhat Test Modified Blood Gas Total Hemoglobin 9.60 L 12.0-16.0 g/dL Blood Gas Set Respiration Rate 22.0 Blood Gas Modality Vent - ac FiO2 % 35.0 Blood Gas Tidal Volume 400.0 Blood Gas PEEP or CPAP 8.0 White Blood Count 10.0 # 4.4-10.8 10^3/uL Red Blood Count 2.98 L 4.0-5.20 10^6/uL Hemoglobin 9.0 L 12.2-16.2 g/dL Hematocrit 26.2 #L 36.0-46.0 % Mean Corpuscular Volume 87.7 80.0-100.0 fL Mean Corpuscular Hemoglobin 30.2 28.0-32.0 pg Mean Corpuscular Hemoglobin Concent 34.4 32.0-36.0 g/dL Red Cell Distribution Width 16.0 H 11.8-14.3 % Platelet Count 122 L 140-450 10^3/uL Mean Platelet Volume 7.5 6.9-10.8 fL Neutrophils (%) (Auto) 78.2 37.0-80.0 % Lymphocytes (%) (Auto) 13.5 10.0-50.0 % Monocytes (%) (Auto) 7.6 0.0-12.0 % Eosinophils (%) (Auto) 0.4 0.0-7.0 % Basophils (%) (Auto) 0.3 0.0-2.0 % Neutrophils # (Auto) 7.8 1.6-8.6 10 ^3/uL Lymphocytes # (Auto) 1.3 0.4-5.4 10 ^3/uL Monocytes # (Auto) 0.8 0-1.3 10 ^3/uL Eosinophils # (Auto) 0 0-0.8 10 ^3/uL Basophils # (Auto) 0 0-0.2 10 ^3/uL Nucleated Red Blood Cells 0.0 % Sodium Level 145 136-145 mmol/L Potassium Level 4.0 3.5-5.1 mmol/L Chloride Level 113 H 98-107 mmol/L Carbon Dioxide Level 22 20-31 mmol/L Anion Gap 10 5-15 Blood Urea Nitrogen 42 H 9-23 mg/dL Creatinine 3.11 H 0.550-1.02 mg/dL Glomerular Filtration Rate Calc 15 >90 mL/min BUN/Creatinine Ratio 13.5 10.0-20.0 Serum Glucose 81 74-106 mg/dL Calcium Level 8.2 L 8.7-10.4 mg/dL Phosphorus Level 4.2 2.4-5.1 mg/dL Troponin I High Sensitivity 29 </=34 ng/L Total Bilirubin 0.7 0.2-1.0 mg/dL Aspartate Amino Transferase (AST) 17 13-40 U/L Alanine Aminotransferase (ALT) < 9 7-40 U/L Alkaline Phosphatase 53 46-116 U/L Total Protein 5.7 5.7-8.2 g/dL Albumin 3.9 3.2-4.8 g/dL Test 07/09/24 19:05 07/09/24 14:44 07/06/24 19:30 Range/Units Magnesium Level 1.5 L 1.6-2.6 mg/dL POC Glucose 153 H 70-106 mg/dl Urine Color Colorless Yellow Urine Clarity Clear Clear Urine pH 5.0 5.0-9.0 Urine Specific Brock 1.006 1.001-1.035 Urine Protein Negative Negative Urine Ketones Negative Negative Urine Blood Negative Negative /uL Urine Nitrite Negative Negative Urine Bilirubin Negative Negative Urine Urobilinogen Normal Negative mg/dL Urine Leukocyte Esterase Negative Negative /uL Urine RBC <1 0 - 4 /hpf Urine Microscopic WBC 2 0-5 /HPF Urine Squamous Epithelial Cells Few <5 /hpf Urine Bacteria None seen None Seen /hpf Urine Glucose Normal Normal mg/dL Microbiology Date/Time Source Procedure Growth Status 07/09/24 15:25 Trachea Gram Stain - Final Resulted 07/09/24 15:25 Trachea Respiratory Culture - Preliminary Resulted Assessment Impression: Acute hypoxic respiratory failure On mechanical ventilator Aspiration pneumonia and aspiration pneumonitis Shock Chronic kidney disease Hypokalemia Chronic anemia Elevated troponin. Constipation Plan: s/p intubation on mechanical ventilator. CXR image and report reviewed. Left upper and lower lobe pneumonia. No acute opacities in the right lung. Devices in place. ABG reviewed, notable for acidemia. On AC mode; RR 22, VT 400, PEEP 8, FiO2 35% Titrate FIO2 to keep O2 saturation above 90%. VAP bundle. Daily ABG and CXR while intubated Sedate for ventilator synchrony - Versed, Fentanyl Continue antibiotics. F/u cultures. On pressors for hemodynamic support Kris-Synephrine 80 mcg/min Titrate to keep mean arterial pressure greater than 65 mmHg. Monitor renal function Monitor electrolytes. Supplement as necessary. Monitor ins and outs. S/p bronchoscopy with RML BAL today - see separate procedure note for details Follow up BAL cultures GI prophylaxis. DVT prophylaxis. Prognosis: Poor given patient's multiple co-morbidities. Condition: Critical Rest of plan per hospitalist and other consultants. A total of 35 minutes of critical care time was spent reviewing the patient record, examining the patient, making a diagnostic and therapeutic plan, discussing this plan with the medical personnel, following up on diagnostic studies and following the patient for clinical stability excluding any and all procedures. At least 50% of this time was spent in direct, [id number] contact. Thank you Dr. Bhatia, for allowing me to participate in this patient's care. Further recommendations will depend on the patient's clinical course. Please do not hesitate to contact me if you have any questions or concerns. This medical document was created using an electronic medical record system with [employer] dictation system. Although these documentations are being carefully reviewed, there may still be some phonetic and typographical changes. The errors are purely typographical, due to imperfection on the software program, and do not reflect any compromise in the patient's medical care. Plan discussed with: Other (KATHE Benson/Dr. Bhatia) ABIMBOLA PAYNE MD Jul 11, 2024 23:25
--- NOTE | 2024-07-11 23:48 | DVHPN2 ---
Progress Note - Dictate Date Seen: Jul 11, 2024 Medical Necessity Reason Pt with a Central, PICC or Fol: Yes The following are medically ne: Central Line, South Catheter Reason for south catheter: Strict I&O Subjective Patient was seen and evaluated in follow-up in the ICU. Patient is intubated and sedated on ventilator. 35% FiO2. HGB 9, HCT 26.2, CL 113, BUN 42, ABSTRACT CLERK 3.11, CA 8.2. Chest x-ray shows NGT and ET mild atelectasis left lung base. vital signs Vital Sign Date Time Temp Pulse Resp B/P (MAP) Pulse Ox O2 Delivery O2 Flow Rate FiO2 07/11/24 11:45 69 27 94/44 (61) 100 35 07/11/24 07:30 98.4 209.1 07/11/24 06:00 Mechanical Ventilator+ 07/09/24 08:15 0 Total Intake and Output 07/10/24 07/10/24 07/11/24 15:00 23:00 07:00 Intake Total 1831.25 ml 1673.00 ml 2014.00 ml Output Total 775 ml 1450 ml Balance 1831.25 ml 898.00 ml 564.00 ml medications Current Medications Medications Dose Ordered Sig/Ginger Route Start Time Stop Time Status Last Admin Dose Admin Amlodipine Besylate 10 mg DAILY PO 07/07/24 10:00 07/07/24 09:04 10 MG Atorvastatin Calcium 40 mg HS PO 07/06/24 22:00 07/10/24 22:11 40 MG Furosemide 40 mg DAILY PO 07/07/24 10:00 07/11/24 09:51 40 MG Gabapentin 400 mg BID PO 07/06/24 22:00 Hold Levothyroxine Sodium 75 mcg QAM@0600 PO 07/07/24 06:00 07/11/24 06:00 75 MCG Montelukast Sodium 10 mg HS PO 07/06/24 22:00 07/10/24 22:14 10 MG Pregabalin 75 mg BID PO 07/06/24 22:00 07/11/24 09:51 75 MG Ondansetron HCl 4 mg Q4HP PRN IV 07/06/24 19:00 07/08/24 19:53 4 MG Acetaminophen 650 mg Q6HP PRN PO 07/06/24 19:00 07/09/24 19:41 650 MG Morphine Sulfate 4 mg Q4HPRN PRN IV 07/07/24 12:15 07/08/24 10:11 4 MG Pantoprazole Sodium 40 mg DAILY IV 07/09/24 10:00 07/11/24 09:50 40 MG Docusate Sodium 100 mg BIDPRN PRN PO 07/08/24 12:45 07/09/24 10:25 100 MG Doxycycline Hyclate 100 ml @ 50 mls/hr Q12H IV 07/09/24 15:00 07/11/24 03:07 50 MLS/HR Piperacillin Sod/ Tazobactam Sod 100 ml @ 25 mls/hr Q12H IV 07/09/24 16:00 07/11/24 07:25 25 MLS/HR Nicardipine HCl 250 ml @ 50 mls/hr Q5H IV 07/09/24 17:15 07/09/24 16:42 50 MLS/HR Hydralazine HCl 10 mg Q6HP PRN IV 07/09/24 18:00 Phenylephrine HCl 250 ml @ 30 mls/hr Q8H20M IV 07/09/24 20:15 07/11/24 10:26 60 MLS/HR Midazolam HCl 50 ml @ 1 mls/hr Q24H IV 07/09/24 21:15 07/11/24 07:56 8 MLS/HR Fentanyl Citrate 250 ml @ 2.5 mls/hr Q24H IV 07/09/24 21:15 07/11/24 07:56 12.5 MLS/HR Carbamazepine 200 mg BID PO 07/09/24 22:00 07/11/24 09:51 200 MG Norepinephrine Bitartrate 250 ml @ 3.75 mls/hr Q24H IV 07/10/24 00:00 Sodium Chloride 1,000 ml @ 100 mls/hr Q10H IV 07/10/24 20:15 07/10/24 22:27 100 MLS/HR Epoetin Julito-epbx 4,000 unit TUTHSA SC 07/11/24 11:15 objective GENERAL: Intubated on ventilator. LUNGS: Decreased breath sounds. CARDIOVASCULAR: Heart sounds are good. ABDOMEN: Soft. laboratory and microbiology Laboratory Tests 07/11/24 03:37 Test 07/11/24 03:37 Range/Units Serum Glucose 81 74-106 mg/dL Problem List Acute hypoxic respiratory failure due to aspiration pneumonia/aspiration pneumonitis. Aspiration pneumonia. Intractable vomiting. Shock, septic possible. Symptomatic cholelithiasis possible. Chronic kidney disease. Hypokalemia. Chronic anemia. History of left kidney mass status post nephrectomy 2021 [facility]. Hypertension. Diverticulosis. Fatty liver. Persisting constipation. Elevated troponin. Episode of SVT. Assessment/Plan Continued all current supportive medical care. Amlodipine. Lipitor. IV antibiotics as ordered. Diuretics with Lasix. IV Hydralazine for SBP >170. Morphine for pain management. Nicardipine drip. GI prophylactics. Vasopressors for hemodynamic support. Additional plan as per the hospital course. Critical care time of 45 minutes provided to include time spent evaluation of patient at bedside, when appropriate patient/family education for diagnosis, treatment plan, review of pertinent medical information and discussion of care with specialty providers and PCP. Mechanical ventilator parameters, treatment and adjustments have personally been reviewed by me and treatment plan by mica machine operator has also been reviewed. Dietary Evaluation Review Comments: Continue current plan of care Expected Outcomes/Goals: Pt will meet >75% estimated needs Fu 3-5 days Plan discussed with: Other MARÍA MIGUEL MD Jul 11, 2024 12:34
[2024-07-12] VITALS (109 sets, daily range): BP systolic 82–170; BP diastolic 35–101; PULSE 61–93; RESP 11–30; TEMP 96.4–100.6; O2SAT 93–100
[2024-07-12 04:21] LABS: Anion Gap 12 (5-15); Basophils # (auto) 0 10 ^3/uL (0-0.2); Basophils % (auto) 0.2 % (0.0-2.0); Eosinophils # (auto) 0.1 10 ^3/uL (0-0.8); Eosinophils % (auto) 1.2 % (0.0-7.0); Hemoglobin 8.9 g/dL (12.2-16.2); Lymphocytes # (auto) 1.4 10 ^3/uL (0.4-5.4); Lymphocytes % (auto) 12.6 % (10.0-50.0); Mean Corpuscular Hemoglobin 29.3 pg (28.0-32.0); Mean Corpuscular Hgb Conc. 33.1 g/dL (32.0-36.0); Mean Corpuscular Volume 88.4 fL (80.0-100.0); Monocytes # (auto) 0.7 10 ^3/uL (0-1.3); Neutrophils # (auto) 8.8 10 ^3/uL (1.6-8.6); Nucleated Red Blood Cells % 0.1 %; Platelet Count (auto) 119 10^3/uL (140-450); Red Blood Cells 3.05 10^6/uL (4.0-5.20); Red Cell Distribution Width 15.9 % (11.8-14.3)
[2024-07-12 04:27] LABS: % Iron Saturation 9.8 % (15-50); BUN/Creatinine Ratio 11.4 (10.0-20.0)
[2024-07-12 04:49] LABS: Blood Urea Nitrogen 32 mg/dL (9-23); Calcium 8.4 mg/dL (8.7-10.4); Carbon Dioxide 18 mmol/L (20-31); Chloride 116 mmol/L (98-107); Glucose 72 mg/dL (74-106); Potassium 3.4 mmol/L (3.5-5.1); Sodium 146 mmol/L (136-145)
[2024-07-12] MEDS: PIPERACILLIN-TAZOB 3.375GM 100 ML IV ONE (05:21)
[2024-07-12 10:02] LABS: Base Excess -7.5 mmol/L (-2.0-3.0)
[2024-07-12] MEDS ORDERED: ENOXAPARIN SOD 40 MG/0.4 ML SYRINGE SC ONE (10:15)
[2024-07-12] MEDS ORDERED: POTASSIUM CHL 20MEQ/100ML 100 ML IV SCH (10:15)
--- NOTE | 2024-07-12 10:33 | DVHPN2 ---
Subjective Update 07/12 07/09 patient here for possible symptomatic cholelithiasis and/or chronic constipation causing intractable abdominal painand nausea vomiting. on 07/09 rapid response called as patient recieved enema and was on BSC and while having BM resulting in LOC. patient moved to bed and found to have also had emesis. intubated by [facility]URITY S[facility] Ever burton with Dr Wynne and Dr Bhatia bedside to secure airway. she has 2x more emesis episodes during intubation efforts. OG tube and south inserted. R IJ CVC inserted by Dr Bhatia. upgraded to ICU. 07/10 patient in ICU today. Patient was sedated intubated on Versed and faint. Pupillary response absent due to sedation. Need to evaluate cause of recurrent nausea and vomiting we will consider getting CT abdomen pelvis. Patient was given fluids overnight and that improved the heart rate. Yesterday patient was started on Cardene drip due to hypertensive but overnight she was becoming hypotensive Cardene drip was turned off and continued to be hypotensive requiring Kris-Synephrine drip 07/12-patient received bronch yesterday, suctioned done and cultures taken. Today we will try sedation vacation and possibly CPAP trial. So far imaging not suggestive of any SBO also indication of emergent surgical indication. Surgery and GI is following. Palm managing vent. We will continue on broad-spectrum antibiotics for aspiration pneumonia. Continue lactulose. Reviewed: Care Plan, H&P, Labs, Medications, Previous Orders, Radiology Changes from previous H/P or p: No Changes General: Per HPI Objective Vitals Vital Signs Date Time Temp Pulse Resp B/P (MAP) Pulse Ox O2 Delivery O2 Flow Rate FiO2 07/12/24 10:23 89 30 162/89 (113) 100 30 07/12/24 08:30 97.7 97.7 07/12/24 06:00 Mechanical Ventilator+ Intake/Output Intake and Output 07/12/24 07:00 Intake Total 4078.25 ml Output Total 4000 ml Balance 78.25 ml Intake Oral 120 ml IV Total 3958.25 ml Output Urine Total 4000 ml Exam GEN: intubated sedated HEENT: NC/AT; MMM. CV: RRR, no m/r/g. LUNGS: Decreased breath sound left lungs ABD: Hypoactive bowel sounds, no rigidity no distention, soft EXT: skin Warm, well perfused. no rashes. No clubbing, cyanosis, or edema. NEURO: Centrally reflexes intact Medications Current Medications Medications Dose Ordered Sig/Ginger Route Start Time Stop Time Status Last Admin Dose Admin Amlodipine Besylate 10 mg DAILY PO 07/07/24 10:00 07/07/24 09:04 10 MG Atorvastatin Calcium 40 mg HS PO 07/06/24 22:00 07/11/24 22:46 40 MG Furosemide 40 mg DAILY PO 07/07/24 10:00 07/11/24 09:51 40 MG Gabapentin 400 mg BID PO 07/06/24 22:00 Hold Levothyroxine Sodium 75 mcg QAM@0600 PO 07/07/24 06:00 07/12/24 07:16 75 MCG Montelukast Sodium 10 mg HS PO 07/06/24 22:00 07/11/24 22:00 10 MG Pregabalin 75 mg BID PO 07/06/24 22:00 07/11/24 22:46 75 MG Ondansetron HCl 4 mg Q4HP PRN IV 07/06/24 19:00 07/08/24 19:53 4 MG Acetaminophen 650 mg Q6HP PRN PO 07/06/24 19:00 07/09/24 19:41 650 MG Morphine Sulfate 4 mg Q4HPRN PRN IV 07/07/24 12:15 07/08/24 10:11 4 MG Pantoprazole Sodium 40 mg DAILY IV 07/09/24 10:00 07/11/24 09:50 40 MG Docusate Sodium 100 mg BIDPRN PRN PO 07/08/24 12:45 07/09/24 10:25 100 MG Doxycycline Hyclate 100 ml @ 50 mls/hr Q12H IV 07/09/24 15:00 07/11/24 14:29 50 MLS/HR Piperacillin Sod/ Tazobactam Sod 100 ml @ 25 mls/hr Q12H IV 07/09/24 16:00 07/12/24 04:00 25 MLS/HR Nicardipine HCl 250 ml @ 50 mls/hr Q5H IV 07/09/24 17:15 07/09/24 16:42 50 MLS/HR Hydralazine HCl 10 mg Q6HP PRN IV 07/09/24 18:00 Midazolam HCl 50 ml @ 1 mls/hr Q24H IV 07/09/24 21:15 07/12/24 07:42 1 MLS/HR Fentanyl Citrate 250 ml @ 2.5 mls/hr Q24H IV 07/09/24 21:15 07/12/24 05:00 12.5 MLS/HR Carbamazepine 200 mg BID PO 07/09/24 22:00 07/11/24 22:00 200 MG Sodium Chloride 1,000 ml @ 100 mls/hr Q10H IV 07/10/24 20:15 07/12/24 01:32 100 MLS/HR Epoetin Julito-epbx 4,000 unit TUTHSA SC 07/11/24 11:15 07/11/24 14:34 4,000 UNIT Phenylephrine HCl 80 mg/Sodium Chloride 250 ml @ 7.5 mls/hr Q24H IV 07/11/24 15:30 07/12/24 00:58 5.625 MLS/HR Norepinephrine Bitartrate 32 mg/ Sodium Chloride 250 ml @ 0.938 mls/ hr Q24H IV 07/11/24 15:30 Amino Acids 0 ml @ 0 mls/hr PER PHARMACY IV 07/11/24 20:45 Lactulose 30 ml BID PO 07/12/24 10:00 Diagnostic Test (Pha) 1 strip Q6HR 07/13/24 00:00 Insulin Human Regular FOLLOW SLIDING SCALE Q6HR SD 07/13/24 00:00 Dextrose 50 ml UD IV 07/13/24 00:00 Enoxaparin Sodium 40 mg DAILY SC 07/13/24 10:00 UNV Potassium Chloride 100 ml @ 50 mls/hr Q2H IV 07/12/24 10:15 07/12/24 16:14 Laboratory Results Laboratory Tests 07/12/24 03:30 Chemistry Test 07/12/24 03:30 Calcium Level 8.4 mg/dL (8.7-10.4) L Magnesium Level Pending Phosphorus Level Pending Urinalysis Test 07/06/24 19:30 Urine Color Colorless (Yellow) Urine Clarity Clear (Clear) Urine pH 5.0 (5.0-9.0) Urine Specific Floyd 1.006 (1.001-1.035) Urine Protein Negative (Negative) Urine Ketones Negative (Negative) Urine Blood Negative /uL (Negative) Urine Nitrite Negative (Negative) Urine Bilirubin Negative (Negative) Urine Urobilinogen Normal mg/dL (Negative) Urine Leukocyte Esterase Negative /uL (Negative) Urine RBC <1 /hpf (0 - 4) Urine Microscopic WBC 2 /HPF (0-5) Urine Squamous Epithelial Cells Few /hpf (<5) Urine Bacteria None seen /hpf (None Seen) Urine Glucose Normal mg/dL (Normal) Blood Gas Results Test 07/12/24 07:35 Arterial Blood pH 7.262 (7.350-7.450) FiO2 % 30.0 Microbiology Microbiology Date/Time Source Procedure Growth Status 07/09/24 15:25 Trachea Gram Stain - Final Resulted 07/09/24 15:25 Trachea Respiratory Culture - Preliminary Resulted Labs and/or images reviewed: Labs reviewed by me, Image(s) reviewed by me Assessment/Plan Assessment/Plan 07/12-patient received bronch yesterday, suctioned done and cultures taken. Today we will try sedation vacation and possibly CPAP trial. So far imaging not suggestive of any SBO also indication of emergent surgical indication. Surgery and GI is following. Palm managing vent. We will continue on broad-spectrum antibiotics for aspiration pneumonia. Continue lactulose. #Acute hypoxic respiratory failure due to aspiration pneumonia/aspiration pneumonitis- intubated, sedated, on mechanical ventilation consult pulmonology for vent management and bronch eval #intubation for airway protection - sedation with versed /fentanyl #aspiration pneumonia and aspiration pneumonitis - iv zosyn/doxy, OG tube with intermittent low suction. #intractable vomiting due to below - GI following #shock, septic possible - on Levophed drip now (we will stop neosephrine gtt) #symptomatic cholelithiasis possible - surgery consulted and following; GI consulted and following #ruled out cholecysititis #Possible urinary tract infection - on zosyn/toxin #Chronic kidney disease : consult nephro #Hypokalemia, stable - monitor #Chronic anemia #History of left kidney mass status post nephrectomy 2021 [facility] #Hypertension - no meds as pt is hypotensive. #Diverticulosis #Fatty liver #Persisting constipation - lactulose Diet - npo, Clinimix enteral OG feeds (stops if residual volume more than 500 cc) DVT - lovenox SQ GI - protonix IV ICU full code Plan discussed with: Other My Orders Orders - LINDA RESENDEZ MD Procedure Category Date Status Time Sodium Chl 0.9% PHA 07/11/24 In Process (Ns... 15:30 Sodium Chl 0.9% PHA 07/11/24 In Process (Ns... 15:30 Enoxaparin Sodium PHA 07/13/24 Logged (Lovenox) 10:00 Enoxaparin Sodium PHA 07/12/24 Logged (Lovenox) 10:15 Potassium Chl PHA 07/12/24 In Process 20meq/100ml 10:15 Date of Service: Jul 12, 2024 Billing Provider: LINDA RESENDEZ MD Common Visit Codes: [id number] CARE 30-74 MIN LINDA RESENDEZ MD Jul 12, 2024 10:32
--- NOTE | 2024-07-12 10:34 | CONS ---
Pharmacy Clinical Information: Pt's serum glucose has been consistently low and Na = 146, Cl = 116 --> consider changing IVF from NS to D5W MADELEINE EPPS PHARMACIST Jul 12, 2024 10:34
[2024-07-12] MEDS: POTASSIUM CHL 20MEQ/50ML 50 ML IV SCH (10:49)
[2024-07-12 11:43] LABS: Magnesium 1.7 mg/dL (1.6-2.6)
[2024-07-12 11:45] LABS: Phosphorus 4.5 mg/dL (2.4-5.1)
[2024-07-12] MEDS: ENOXAPARIN SOD 30 MG/0.3 ML SYRINGE SC ONE (12:01)
--- NOTE | 2024-07-12 12:01 | MEDREC ---
[facility] Intervention Section I [facility] Intervention: Review courses of therapy (PRELIMINARY BRONCHIAL WASHING CULTURE POSITIVE FOR YEAST - PLEASE CONSIDER ADDING ANTIFUNGAL AGENT IF CLINICALLY RELEVANT ) MARNIE LARSEN PHARMACIST Jul 12, 2024 12:01
--- NOTE | 2024-07-12 12:46 | DVHPN2 ---
Progress Note Date Seen: Jul 12, 2024 Medical Necessity Reason Pt with a Central, PICC or Fol: Yes The following are medically ne: Central Line, South Catheter Reason for south catheter: Strict I&O Objective vital signs Vital Sign Date Time Temp Pulse Resp B/P (MAP) Pulse Ox O2 Delivery O2 Flow Rate FiO2 07/12/24 10:23 89 30 162/89 (113) 100 30 07/12/24 08:30 97.7 97.7 07/12/24 06:00 Mechanical Ventilator+ Total Intake and Output 07/11/24 07/11/24 07/12/24 15:00 23:00 07:00 Intake Total 1467.75 ml 1291.5 ml 1319.0 ml Output Total 2000 ml 2000 ml Balance 1467.75 ml -708.5 ml -681.0 ml medications Current Medications Medications Dose Ordered Sig/Ginger Route Start Time Stop Time Status Last Admin Dose Admin Amlodipine Besylate 10 mg DAILY PO 07/07/24 10:00 07/07/24 09:04 10 MG Atorvastatin Calcium 40 mg HS PO 07/06/24 22:00 07/11/24 22:46 40 MG Furosemide 40 mg DAILY PO 07/07/24 10:00 07/11/24 09:51 40 MG Gabapentin 400 mg BID PO 07/06/24 22:00 Hold Levothyroxine Sodium 75 mcg QAM@0600 PO 07/07/24 06:00 07/12/24 07:16 75 MCG Montelukast Sodium 10 mg HS PO 07/06/24 22:00 07/11/24 22:00 10 MG Pregabalin 75 mg BID PO 07/06/24 22:00 07/12/24 10:51 75 MG Ondansetron HCl 4 mg Q4HP PRN IV 07/06/24 19:00 07/08/24 19:53 4 MG Acetaminophen 650 mg Q6HP PRN PO 07/06/24 19:00 07/09/24 19:41 650 MG Morphine Sulfate 4 mg Q4HPRN PRN IV 07/07/24 12:15 07/08/24 10:11 4 MG Pantoprazole Sodium 40 mg DAILY IV 07/09/24 10:00 07/12/24 10:51 40 MG Docusate Sodium 100 mg BIDPRN PRN PO 07/08/24 12:45 07/09/24 10:25 100 MG Doxycycline Hyclate 100 ml @ 50 mls/hr Q12H IV 07/09/24 15:00 07/11/24 14:29 50 MLS/HR Piperacillin Sod/ Tazobactam Sod 100 ml @ 25 mls/hr Q12H IV 07/09/24 16:00 07/12/24 04:00 25 MLS/HR Nicardipine HCl 250 ml @ 50 mls/hr Q5H IV 07/09/24 17:15 07/09/24 16:42 50 MLS/HR Hydralazine HCl 10 mg Q6HP PRN IV 07/09/24 18:00 Midazolam HCl 50 ml @ 1 mls/hr Q24H IV 07/09/24 21:15 07/12/24 07:42 1 MLS/HR Fentanyl Citrate 250 ml @ 2.5 mls/hr Q24H IV 07/09/24 21:15 07/12/24 05:00 12.5 MLS/HR Carbamazepine 200 mg BID PO 07/09/24 22:00 07/12/24 11:50 200 MG Sodium Chloride 1,000 ml @ 100 mls/hr Q10H IV 07/10/24 20:15 07/12/24 01:32 100 MLS/HR Epoetin Julito-epbx 4,000 unit TUTHSA SC 07/11/24 11:15 07/11/24 14:34 4,000 UNIT Phenylephrine HCl 80 mg/Sodium Chloride 250 ml @ 7.5 mls/hr Q24H IV 07/11/24 15:30 07/12/24 11:46 7.5 MLS/HR Norepinephrine Bitartrate 32 mg/ Sodium Chloride 250 ml @ 0.938 mls/ hr Q24H IV 07/11/24 15:30 Amino Acids 0 ml @ 0 mls/hr PER PHARMACY IV 07/11/24 20:45 Lactulose 30 ml BID PO 07/12/24 10:00 Diagnostic Test (Pha) 1 strip Q6HR 07/13/24 00:00 Insulin Human Regular FOLLOW SLIDING SCALE Q6HR SC 07/13/24 00:00 Dextrose 50 ml UD IV 07/13/24 00:00 Enoxaparin Sodium 40 mg DAILY SC 07/13/24 10:00 UNV Potassium Chloride 50 ml @ 25 mls/hr Q2H IV 07/12/24 10:45 07/12/24 16:44 07/12/24 10:49 25 MLS/HR Amino Acids/ Electrolytes/ Dextrose 1,000 ml @ 41 mls/hr DAILY@2200 IV 07/12/24 22:00 Enoxaparin Sodium 30 mg DAILY SC 07/13/24 10:00 laboratory and microbiology Laboratory Tests 07/12/24 03:30 Test 07/12/24 03:30 Range/Units Serum Glucose 72 L 74-106 mg/dL Microbiology Date/Time Source Procedure Growth Status 07/11/24 12:00 Bronchial Washings Gram Stain - Final Resulted 07/11/24 12:00 Bronchial Washings Respiratory Culture - Preliminary Resulted 07/09/24 15:25 Trachea Gram Stain - Final Resulted 07/09/24 15:25 Trachea Respiratory Culture - Preliminary Resulted Problem List/Assessment/Plan Problem List/Assessment/Plan INTUBATED CARDIORESPIRATORY EVENT ON VASOPRESSOR SUPPORT BUT LESS POSSIBLE ASPIRATION CONTINUE CLOSE OBSERVATION HIGH RISK FOR SURGERY FAMILY UPDATED AND AT BEDSIDE Plan discussed with: Patient Dietary Evaluation Review Comments: Continue current plan of care Expected Outcomes/Goals: Pt will meet >75% estimated needs Fu 3-5 days SWATHI VILLANUEVA MD Jul 12, 2024 12:46
[2024-07-12] MEDS: LACTULOSE 20Gm/30ML SOLN PO SCH (13:02)
--- NOTE | 2024-07-12 13:21 | DVHPN2 ---
Progress Note Date Seen: Jul 12, 2024 Medical Necessity Reason Pt with a Central, PICC or Fol: Yes The following are medically ne: Central Line, South Catheter Reason for south catheter: Strict I&O Subjective Patient reports: Other (intuabted) Review of Systems: RESPIRATORY:Abnormal Objective vital signs Vital Sign Date Time Temp Pulse Resp B/P (MAP) Pulse Ox O2 Delivery O2 Flow Rate FiO2 07/12/24 13:05 107/63 07/12/24 12:57 75 22 99 30 07/12/24 08:30 97.7 97.7 07/12/24 06:00 Mechanical Ventilator+ Total Intake and Output 07/11/24 07/11/24 07/12/24 15:00 23:00 07:00 Intake Total 1467.75 ml 1291.5 ml 1319.0 ml Output Total 2000 ml 2000 ml Balance 1467.75 ml -708.5 ml -681.0 ml medications Current Medications Medications Dose Ordered Sig/Ginger Route Start Time Stop Time Status Last Admin Dose Admin Amlodipine Besylate 10 mg DAILY PO 07/07/24 10:00 07/07/24 09:04 10 MG Atorvastatin Calcium 40 mg HS PO 07/06/24 22:00 07/11/24 22:46 40 MG Furosemide 40 mg DAILY PO 07/07/24 10:00 07/12/24 13:05 40 MG Gabapentin 400 mg BID PO 07/06/24 22:00 Hold Levothyroxine Sodium 75 mcg QAM@0600 PO 07/07/24 06:00 07/12/24 07:16 75 MCG Montelukast Sodium 10 mg HS PO 07/06/24 22:00 07/11/24 22:00 10 MG Pregabalin 75 mg BID PO 07/06/24 22:00 07/12/24 10:51 75 MG Ondansetron HCl 4 mg Q4HP PRN IV 07/06/24 19:00 07/08/24 19:53 4 MG Acetaminophen 650 mg Q6HP PRN PO 07/06/24 19:00 07/09/24 19:41 650 MG Morphine Sulfate 4 mg Q4HPRN PRN IV 07/07/24 12:15 07/08/24 10:11 4 MG Pantoprazole Sodium 40 mg DAILY IV 07/09/24 10:00 07/12/24 10:51 40 MG Docusate Sodium 100 mg BIDPRN PRN PO 07/08/24 12:45 07/09/24 10:25 100 MG Doxycycline Hyclate 100 ml @ 50 mls/hr Q12H IV 07/09/24 15:00 07/11/24 14:29 50 MLS/HR Piperacillin Sod/ Tazobactam Sod 100 ml @ 25 mls/hr Q12H IV 07/09/24 16:00 07/12/24 04:00 25 MLS/HR Nicardipine HCl 250 ml @ 50 mls/hr Q5H IV 07/09/24 17:15 07/09/24 16:42 50 MLS/HR Hydralazine HCl 10 mg Q6HP PRN IV 07/09/24 18:00 Midazolam HCl 50 ml @ 1 mls/hr Q24H IV 07/09/24 21:15 07/12/24 07:42 1 MLS/HR Fentanyl Citrate 250 ml @ 2.5 mls/hr Q24H IV 07/09/24 21:15 07/12/24 05:00 12.5 MLS/HR Carbamazepine 200 mg BID PO 07/09/24 22:00 07/12/24 11:50 200 MG Sodium Chloride 1,000 ml @ 100 mls/hr Q10H IV 07/10/24 20:15 07/12/24 01:32 100 MLS/HR Epoetin Julito-epbx 4,000 unit TUTHSA SC 07/11/24 11:15 07/11/24 14:34 4,000 UNIT Phenylephrine HCl 80 mg/Sodium Chloride 250 ml @ 7.5 mls/hr Q24H IV 07/11/24 15:30 07/12/24 11:46 7.5 MLS/HR Norepinephrine Bitartrate 32 mg/ Sodium Chloride 250 ml @ 0.938 mls/ hr Q24H IV 07/11/24 15:30 Amino Acids 0 ml @ 0 mls/hr PER PHARMACY IV 07/11/24 20:45 Lactulose 30 ml BID PO 07/12/24 10:00 07/12/24 13:02 30 ML Diagnostic Test (Pha) 1 strip Q6HR 07/13/24 00:00 Insulin Human Regular FOLLOW SLIDING SCALE Q6HR SC 07/13/24 00:00 Dextrose 50 ml UD IV 07/13/24 00:00 Enoxaparin Sodium 40 mg DAILY SC 07/13/24 10:00 UNV Potassium Chloride 50 ml @ 25 mls/hr Q2H IV 07/12/24 10:45 07/12/24 16:44 07/12/24 13:04 25 MLS/HR Amino Acids/ Electrolytes/ Dextrose 1,000 ml @ 41 mls/hr DAILY@2200 IV 07/12/24 22:00 Enoxaparin Sodium 30 mg DAILY SC 07/13/24 10:00 Examination: GENERAL:Abnormal, LUNGS:Abnormal, ABDOMEN:Abnormal, NEURO:Abnormal laboratory and microbiology Laboratory Tests 07/12/24 03:30 Test 07/12/24 03:30 Range/Units Serum Glucose 72 L 74-106 mg/dL Microbiology Date/Time Source Procedure Growth Status 07/11/24 12:00 Bronchial Washings Gram Stain - Final Resulted 07/11/24 12:00 Bronchial Washings Respiratory Culture - Preliminary Resulted 07/09/24 15:25 Trachea Gram Stain - Final Resulted 07/09/24 15:25 Trachea Respiratory Culture - Preliminary Resulted Problem List/Assessment/Plan Problem List/Assessment/Plan Acute kidney injury hemodynamic CKd 4 ; with solitary kidney s/p nephrectomy abdominal pain, Diverticulosis Cholelithiasis without cholecystitis constipation anemia Acute respiratory failure with multifocal pneumonia Septic shock Constipation with fecal impaction status post enema CT shows no renal obstruction UA unremarkable rec IVF Raghav continue pressors to maintain mean arterial pressure greater than 65 avoid hypotension GI w/u ongoing rec maintain hb > 8.0 due to advanced ckd start epogen 3x a week and iron IV Plan discussed with: Other My Orders My Orders Orders - RONALDO GALEANO MD Procedure Category Date Status Time Clinimix Per Pharmacy PHA 07/11/24 In Process 20:45 Glucose Blood PHA 07/13/24 In Process (Accu-Chek Comfort 00:00 Insulin R (Human) PHA 07/13/24 In Process (Insulin R) 00:00 Dextrose 50% Syringe PHA 07/13/24 In Process 00:00 Comprehensive LAB 07/13/24 Verified Metabolic Panel 04:00 Magnesium LAB 07/13/24 Verified 04:00 Phosphorus LAB 07/13/24 Verified 04:00 Triglycerides LAB 07/13/24 Verified 04:00 Amino Acid Infusion PHA 3/30/25 In Process In D10w (Clinimix 4. 22:00 Clinimix Per Pharmacy [facility] 07/12/24 In Process 22:00 Dietary Evaluation Review Comments: Continue current plan of care Expected Outcomes/Goals: Pt will meet >75% estimated needs Fu 3-5 days RONALDO GALEANO MD Jul 12, 2024 13:21
--- NOTE | 2024-07-12 14:24 | DVH ---
EXAM: XY CHEST PORTABLE HISTORY: ETT LINE PLACEMENT COMPARISON: XY CHEST XRAY 1 VIEW on DOS: 07/11/24, XY CHEST XRAY 1 VIEW on DOS: 07/10/24, XY CHEST PORT ABLE on DOS: 07/09/24, XY CHEST PORTABLE on DOS: 07/09/24, CT scan of the chest dated 07/10/2024 TECHNIQUE: Portable AP view of the chest was performed. FINDINGS: Endotracheal tube is re-identified with its tip 2.5 cm above the tahmina. OG tube is re-iden tified with its tip at least 12 cm distal to the GE junction. Right IJ central line is re-identified with tip in the mid SVC. There is infiltrate in the left mid to lower lung. The right lung is clear . No pneumothorax. The heart is upper limits of normal in size. IMPRESSION: 1. Mechanical ventilation with tubes and lines as above. 2. Left upper and lower lobe pneumonia. 3. The right lung is clear.
[2024-07-12] MEDS: MAGNESIUM SULFATE 1GM/100ML 100 ML IV SCH (15:13)
[2024-07-12] MEDS: IRON SUCROSE COMPLEX 110 ML IV SCH (16:36)
--- NOTE | 2024-07-12 21:19 | DVHPN2 ---
Progress Note - Dictate Date Seen: Jul 12, 2024 Medical Necessity Reason Pt with a Central, PICC or Fol: Yes The following are medically ne: Central Line, South Catheter Reason for south catheter: Strict I&O Subjective Patient seen in ICU 110 Intubated and sedated Mild elevation in troponins Patient has multiple focal pneumonia on IV antibiotics Patient is being treated with lactulose and MiraLax for her constipation; still no bowel movement Low-grade fever vital signs Vital Sign Date Time Temp Pulse Resp B/P (MAP) Pulse Ox O2 Delivery O2 Flow Rate FiO2 07/12/24 20:26 78 23 93/58 (70) 100 30 07/12/24 18:30 99.7 211.5 07/12/24 18:00 Mechanical Ventilator+ Total Intake and Output 07/11/24 07/11/24 07/12/24 15:00 23:00 07:00 Intake Total 1467.75 ml 1291.5 ml 1319.0 ml Output Total 2000 ml 2000 ml Balance 1467.75 ml -708.5 ml -681.0 ml medications Current Medications Medications Dose Ordered Sig/Ginger Route Start Time Stop Time Status Last Admin Dose Admin Amlodipine Besylate 10 mg DAILY PO 07/07/24 10:00 07/07/24 09:04 10 MG Atorvastatin Calcium 40 mg HS PO 07/06/24 22:00 07/11/24 22:46 40 MG Furosemide 40 mg DAILY PO 07/07/24 10:00 07/12/24 13:05 40 MG Gabapentin 400 mg BID PO 07/06/24 22:00 Hold Levothyroxine Sodium 75 mcg QAM@0600 PO 07/07/24 06:00 07/12/24 07:16 75 MCG Montelukast Sodium 10 mg HS PO 07/06/24 22:00 07/11/24 22:00 10 MG Pregabalin 75 mg BID PO 07/06/24 22:00 07/12/24 10:51 75 MG Ondansetron HCl 4 mg Q4HP PRN IV 07/06/24 19:00 07/08/24 19:53 4 MG Acetaminophen 650 mg Q6HP PRN PO 07/06/24 19:00 07/09/24 19:41 650 MG Morphine Sulfate 4 mg Q4HPRN PRN IV 07/07/24 12:15 07/08/24 10:11 4 MG Pantoprazole Sodium 40 mg DAILY IV 07/09/24 10:00 07/12/24 10:51 40 MG Docusate Sodium 100 mg BIDPRN PRN PO 07/08/24 12:45 07/09/24 10:25 100 MG Doxycycline Hyclate 100 ml @ 50 mls/hr Q12H IV 07/09/24 15:00 07/12/24 15:14 50 MLS/HR Piperacillin Sod/ Tazobactam Sod 100 ml @ 25 mls/hr Q12H IV 07/09/24 16:00 07/12/24 17:54 25 MLS/HR Nicardipine HCl 250 ml @ 50 mls/hr Q5H IV 07/09/24 17:15 07/09/24 16:42 50 MLS/HR Hydralazine HCl 10 mg Q6HP PRN IV 07/09/24 18:00 Midazolam HCl 50 ml @ 1 mls/hr Q24H IV 07/09/24 21:15 07/12/24 14:44 6 MLS/HR Fentanyl Citrate 250 ml @ 2.5 mls/hr Q24H IV 07/09/24 21:15 07/12/24 05:00 12.5 MLS/HR Carbamazepine 200 mg BID PO 07/09/24 22:00 07/12/24 11:50 200 MG Sodium Chloride 1,000 ml @ 100 mls/hr Q10H IV 07/10/24 20:15 07/12/24 01:32 100 MLS/HR Epoetin Julito-epbx 4,000 unit TUTHSA SC 07/11/24 11:15 07/11/24 14:34 4,000 UNIT Phenylephrine HCl 80 mg/Sodium Chloride 250 ml @ 7.5 mls/hr Q24H IV 07/11/24 15:30 07/12/24 11:46 7.5 MLS/HR Norepinephrine Bitartrate 32 mg/ Sodium Chloride 250 ml @ 0.938 mls/ hr Q24H IV 07/11/24 15:30 Amino Acids 0 ml @ 0 mls/hr PER PHARMACY IV 07/11/24 20:45 Lactulose 30 ml BID PO 07/12/24 10:00 07/12/24 13:02 30 ML Diagnostic Test (Pha) 1 strip Q6HR 07/13/24 00:00 Insulin Human Regular FOLLOW SLIDING SCALE Q6HR SC 07/13/24 00:00 Dextrose 50 ml UD IV 07/13/24 00:00 Enoxaparin Sodium 40 mg DAILY SC 07/13/24 10:00 UNV Amino Acids/ Electrolytes/ Dextrose 1,000 ml @ 41 mls/hr DAILY@2200 IV 07/12/24 22:00 Enoxaparin Sodium 30 mg DAILY SC 07/13/24 10:00 Iron Sucrose 110 ml @ 110 mls/hr DAILY@1200 IV 07/12/24 13:30 07/16/24 12:59 07/12/24 16:36 110 MLS/HR objective GEN: intubated sedated HEENT: NC/AT; MMM. CV: RRR, no m/r/g. LUNGS: Decreased breath sound ABD: Hypoactive bowel sounds, no rigidity no distention, soft EXT: skin Warm, well perfused. no rashes. No clubbing, cyanosis, or edema. laboratory and microbiology Laboratory Tests 07/12/24 03:30 Test 07/12/24 03:30 Range/Units Serum Glucose 72 L 74-106 mg/dL Problems(with codes): (1) N&V (nausea and vomiting) (2) Cholelithiasis (3) Constipation (4) Abdominal pain (5) Sciatica (6) Lumbar radiculopathy (7) Osteoarthritis (8) Anemia (9) Sepsis due to urinary tract infection Prognosis Plan Patient will be started on IV Clinimix today Fleets enema x1 There was a plan for possible CPAP trial in the next 24-48 hours Dietary Evaluation Review Comments: Continue current plan of care Expected Outcomes/Goals: Pt will meet >75% estimated needs Fu 3-5 days Plan discussed with: Other (ICU Nurse) ASHLEIGH VILLANUEVA MD Jul 12, 2024 21:19
[2024-07-12] MEDS: FLEET ENEMA(ADULT) 135 ML PR ONE (21:48)
[2024-07-12] MEDS: POLYETHYLENE GLYCOL 17 GM PWDR PO ONE (21:48)
[2024-07-12] MEDS: AMINO ACID INFUSION IN D10W 1,000 ML IV SCH (21:52)
--- NOTE | 2024-07-12 23:15 | DVHPN2 ---
Progress Note - Dictate Date Seen: Jul 12, 2024 Medical Necessity Reason Pt with a Central, PICC or Fol: Yes The following are medically ne: Central Line, South Catheter Reason for south catheter: Strict I&O Subjective Patient seen and examined at bedside. Sedated, intubated on mechanical ventilator. Overnight events reviewed. vital signs Vital Sign Date Time Temp Pulse Resp B/P (MAP) Pulse Ox O2 Delivery O2 Flow Rate FiO2 07/12/24 23:03 157/84 07/12/24 22:30 98.2 77 16 99 208.8 07/12/24 22:17 30 07/12/24 22:00 Mechanical Ventilator+ Total Intake and Output 07/11/24 07/11/24 07/12/24 15:00 23:00 07:00 Intake Total 1467.75 ml 1291.5 ml 1319.0 ml Output Total 2000 ml 2000 ml Balance 1467.75 ml -708.5 ml -681.0 ml medications Current Medications Medications Dose Ordered Sig/Ginger Route Start Time Stop Time Status Last Admin Dose Admin Amlodipine Besylate 10 mg DAILY PO 07/07/24 10:00 07/07/24 09:04 10 MG Atorvastatin Calcium 40 mg HS PO 07/06/24 22:00 07/12/24 21:49 40 MG Furosemide 40 mg DAILY PO 07/07/24 10:00 07/12/24 13:05 40 MG Gabapentin 400 mg BID PO 07/06/24 22:00 Hold Levothyroxine Sodium 75 mcg QAM@0600 PO 07/07/24 06:00 07/12/24 07:16 75 MCG Montelukast Sodium 10 mg HS PO 07/06/24 22:00 07/12/24 21:48 10 MG Pregabalin 75 mg BID PO 07/06/24 22:00 07/12/24 21:48 75 MG Ondansetron HCl 4 mg Q4HP PRN IV 07/06/24 19:00 07/08/24 19:53 4 MG Acetaminophen 650 mg Q6HP PRN PO 07/06/24 19:00 07/09/24 19:41 650 MG Morphine Sulfate 4 mg Q4HPRN PRN IV 07/07/24 12:15 07/08/24 10:11 4 MG Pantoprazole Sodium 40 mg DAILY IV 07/09/24 10:00 07/12/24 10:51 40 MG Docusate Sodium 100 mg BIDPRN PRN PO 07/08/24 12:45 07/09/24 10:25 100 MG Doxycycline Hyclate 100 ml @ 50 mls/hr Q12H IV 07/09/24 15:00 07/12/24 15:14 50 MLS/HR Piperacillin Sod/ Tazobactam Sod 100 ml @ 25 mls/hr Q12H IV 07/09/24 16:00 07/12/24 17:54 25 MLS/HR Nicardipine HCl 250 ml @ 50 mls/hr Q5H IV 07/09/24 17:15 07/09/24 16:42 50 MLS/HR Hydralazine HCl 10 mg Q6HP PRN IV 07/09/24 18:00 Midazolam HCl 50 ml @ 1 mls/hr Q24H IV 07/09/24 21:15 07/12/24 23:03 6 MLS/HR Fentanyl Citrate 250 ml @ 2.5 mls/hr Q24H IV 07/09/24 21:15 07/12/24 05:00 12.5 MLS/HR Carbamazepine 200 mg BID PO 07/09/24 22:00 07/12/24 21:52 200 MG Sodium Chloride 1,000 ml @ 100 mls/hr Q10H IV 07/10/24 20:15 07/12/24 21:49 100 MLS/HR Epoetin Julito-epbx 4,000 unit TUTHSA SC 07/11/24 11:15 07/11/24 14:34 4,000 UNIT Phenylephrine HCl 80 mg/Sodium Chloride 250 ml @ 7.5 mls/hr Q24H IV 07/11/24 15:30 07/12/24 11:46 7.5 MLS/HR Norepinephrine Bitartrate 32 mg/ Sodium Chloride 250 ml @ 0.938 mls/ hr Q24H IV 07/11/24 15:30 Amino Acids 0 ml @ 0 mls/hr PER PHARMACY IV 07/11/24 20:45 Lactulose 30 ml BID PO 07/12/24 10:00 07/12/24 21:48 30 ML Diagnostic Test (Pha) 1 strip Q6HR 07/13/24 00:00 Insulin Human Regular FOLLOW SLIDING SCALE Q6HR SC 07/13/24 00:00 Dextrose 50 ml UD IV 07/13/24 00:00 Enoxaparin Sodium 40 mg DAILY SC 07/13/24 10:00 UNV Amino Acids/ Electrolytes/ Dextrose 1,000 ml @ 41 mls/hr DAILY@2200 IV 07/12/24 22:00 07/12/24 21:52 41 MLS/HR Enoxaparin Sodium 30 mg DAILY SC 07/13/24 10:00 Iron Sucrose 110 ml @ 110 mls/hr DAILY@1200 IV 07/12/24 13:30 07/16/24 12:59 07/12/24 16:36 110 MLS/HR objective Gen.: Patient lying in bed in medical ICU. Sedated, intubated on mechanical ventilator. Head: Normocephalic, atraumatic. Eyes: PERRLA. Ears: Normal external anatomy. Throat: Endotracheal tube and orogastric tube in place. Neck: Supple, trachea midline. Chest: Transmitted breath sounds bilaterally. Decreased air entry bilaterally. No wheezing. Bibasilar crackles. Cardiovascular: Positive S1, positive S2. Regular rate and rhythm. Abdomen: Positive bowel sounds in all 4 quadrants. Soft, nontender, nondistended. : South in place. Normal external genitalia. Rectal: Deferred. Skin: Warm, dry. Intact. Extremities: 2+ radial pulses bilaterally. No lower extremity edema. Neuro: Sedated. laboratory and microbiology Laboratory Tests 07/12/24 03:30 Test 07/12/24 03:30 Range/Units Serum Glucose 72 L 74-106 mg/dL Assessment/Plan Impression: Acute hypoxic respiratory failure On mechanical ventilator Aspiration pneumonia and aspiration pneumonitis Shock Chronic kidney disease Hypokalemia Chronic anemia Elevated troponin. Constipation Events: Remains on vent support On AC mode; RR 22, VT 400, PEEP 8, FiO2 30% Sedated on Versed, Fentanyl Off Kris-Synephrine, hemodynamically stable. Monitor renal function Monitor electrolytes. Supplement as necessary. Potassium, magnesium supplementation s/p 1 unit PRBC Monitor hemoglobin ABG reviewed, notable for acidemia CXR reviewed, Left upper and lower lobe pneumonia. Devices in place. Labs and imaging reviewed. Rest of plan as noted below Plan: s/p intubation on mechanical ventilator. CXR image and report reviewed. ABG reviewed, notable for acidemia. On AC mode; RR 22, VT 400, PEEP 8, FiO2 30% Titrate FIO2 to keep O2 saturation above 90%. VAP bundle. Daily ABG and CXR while intubated Sedate for ventilator synchrony Continue antibiotics. F/u cultures. Pressors if necessary for hemodynamic support Titrate to keep mean arterial pressure greater than 65 mmHg. Monitor renal function Monitor electrolytes. Supplement as necessary. Monitor ins and outs. S/p bronchoscopy with RML BAL on 07/11/24 - see separate procedure note for details Follow up BAL cultures GI prophylaxis. DVT prophylaxis. Prognosis: Poor given patient's multiple co-morbidities. Condition: Critical Rest of plan per hospitalist and other consultants. A total of 35 minutes of critical care time was spent reviewing the patient record, examining the patient, making a diagnostic and therapeutic plan, discussing this plan with the medical personnel, following up on diagnostic studies and following the patient for clinical stability excluding any and all procedures. At least 50% of this time was spent in direct, [id number] contact. Thank you Dr. Bhatia, for allowing me to participate in this patient's care. Further recommendations will depend on the patient's clinical course. Please do not hesitate to contact me if you have any questions or concerns. This medical document was created using an electronic medical record system with [employer] computerized dictation system. Although these documentations are being carefully reviewed, there may still be some phonetic and typographical changes. The errors are purely typographical, due to imperfection on the software program, and do not reflect any compromise in the patient's medical care. Dietary Evaluation Review Comments: Continue current plan of care Expected Outcomes/Goals: Pt will meet >75% estimated needs Fu 3-5 days Plan discussed with: Other (KATHE Dillard) Critical Care Time(min): 35 ABIMBOLA PAYNE MD Jul 12, 2024 23:15
[2024-07-12] MEDS: InsuLIN REG 1unit/0.01ml Soln (100units/ml) SC SCH (23:48)
[2024-07-12] MEDS: ACCU-CHEK COMFORT CURVE STRIP VI SCH (23:48)
--- NOTE | 2024-07-12 23:58 | DVHPN2 ---
Progress Note - Dictate Date Seen: Jul 12, 2024 Medical Necessity Reason Pt with a Central, PICC or Fol: Yes The following are medically ne: Central Line, South Catheter Reason for south catheter: Strict I&O Subjective Patient was seen and evaluated in follow-up in the ICU. Patient is intubated and sedated on ventilator. 30% FiO2. 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 vital signs Vital Sign Date Time Temp Pulse Resp B/P (MAP) Pulse Ox O2 Delivery O2 Flow Rate FiO2 07/12/24 13:05 107/63 07/12/24 12:57 75 22 99 30 07/12/24 08:30 97.7 97.7 07/12/24 06:00 Mechanical Ventilator+ Total Intake and Output 07/11/24 07/11/24 07/12/24 15:00 23:00 07:00 Intake Total 1467.75 ml 1291.5 ml 1319.0 ml Output Total 2000 ml 2000 ml Balance 1467.75 ml -708.5 ml -681.0 ml medications Current Medications Medications Dose Ordered Sig/Ginger Route Start Time Stop Time Status Last Admin Dose Admin Amlodipine Besylate 10 mg DAILY PO 07/07/24 10:00 07/07/24 09:04 10 MG Atorvastatin Calcium 40 mg HS PO 07/06/24 22:00 07/11/24 22:46 40 MG Furosemide 40 mg DAILY PO 07/07/24 10:00 07/12/24 13:05 40 MG Gabapentin 400 mg BID PO 07/06/24 22:00 Hold Levothyroxine Sodium 75 mcg QAM@0600 PO 07/07/24 06:00 07/12/24 07:16 75 MCG Montelukast Sodium 10 mg HS PO 07/06/24 22:00 07/11/24 22:00 10 MG Pregabalin 75 mg BID PO 07/06/24 22:00 07/12/24 10:51 75 MG Ondansetron HCl 4 mg Q4HP PRN IV 07/06/24 19:00 07/08/24 19:53 4 MG Acetaminophen 650 mg Q6HP PRN PO 07/06/24 19:00 07/09/24 19:41 650 MG Morphine Sulfate 4 mg Q4HPRN PRN IV 07/07/24 12:15 07/08/24 10:11 4 MG Pantoprazole Sodium 40 mg DAILY IV 07/09/24 10:00 07/12/24 10:51 40 MG Docusate Sodium 100 mg BIDPRN PRN PO 07/08/24 12:45 07/09/24 10:25 100 MG Doxycycline Hyclate 100 ml @ 50 mls/hr Q12H IV 07/09/24 15:00 07/11/24 14:29 50 MLS/HR Piperacillin Sod/ Tazobactam Sod 100 ml @ 25 mls/hr Q12H IV 07/09/24 16:00 07/12/24 04:00 25 MLS/HR Nicardipine HCl 250 ml @ 50 mls/hr Q5H IV 07/09/24 17:15 07/09/24 16:42 50 MLS/HR Hydralazine HCl 10 mg Q6HP PRN IV 07/09/24 18:00 Midazolam HCl 50 ml @ 1 mls/hr Q24H IV 07/09/24 21:15 07/12/24 07:42 1 MLS/HR Fentanyl Citrate 250 ml @ 2.5 mls/hr Q24H IV 07/09/24 21:15 07/12/24 05:00 12.5 MLS/HR Carbamazepine 200 mg BID PO 07/09/24 22:00 07/12/24 11:50 200 MG Sodium Chloride 1,000 ml @ 100 mls/hr Q10H IV 07/10/24 20:15 07/12/24 01:32 100 MLS/HR Epoetin Julito-epbx 4,000 unit TUTHSA SC 07/11/24 11:15 07/11/24 14:34 4,000 UNIT Phenylephrine HCl 80 mg/Sodium Chloride 250 ml @ 7.5 mls/hr Q24H IV 07/11/24 15:30 07/12/24 11:46 7.5 MLS/HR Norepinephrine Bitartrate 32 mg/ Sodium Chloride 250 ml @ 0.938 mls/ hr Q24H IV 07/11/24 15:30 Amino Acids 0 ml @ 0 mls/hr PER PHARMACY IV 07/11/24 20:45 Lactulose 30 ml BID PO 07/12/24 10:00 07/12/24 13:02 30 ML Diagnostic Test (Pha) 1 strip Q6HR 07/13/24 00:00 Insulin Human Regular FOLLOW SLIDING SCALE Q6HR SC 07/13/24 00:00 Dextrose 50 ml UD IV 07/13/24 00:00 Enoxaparin Sodium 40 mg DAILY SC 07/13/24 10:00 UNV Potassium Chloride 50 ml @ 25 mls/hr Q2H IV 07/12/24 10:45 07/12/24 16:44 07/12/24 13:04 25 MLS/HR Amino Acids/ Electrolytes/ Dextrose 1,000 ml @ 41 mls/hr DAILY@2200 IV 07/12/24 22:00 Enoxaparin Sodium 30 mg DAILY SC 07/13/24 10:00 Iron Sucrose 110 ml @ 110 mls/hr DAILY@1200 IV 07/12/24 13:30 07/16/24 12:59 Magnesium Sulfate/ Dextrose 100 ml @ 100 mls/hr Q1HR IV 07/12/24 14:00 07/12/24 15:59 objective GENERAL: Intubated on ventilator. LUNGS: Decreased breath sounds. CARDIOVASCULAR: Heart sounds are good. ABDOMEN: Soft. laboratory and microbiology Laboratory Tests 07/12/24 03:30 Test 07/12/24 03:30 Range/Units Serum Glucose 72 L 74-106 mg/dL Problem List Acute hypoxic respiratory failure due to aspiration pneumonia/aspiration pneumonitis. Aspiration pneumonia. Intractable vomiting. Shock, septic possible. Symptomatic cholelithiasis possible. Chronic kidney disease. Hypokalemia. Chronic anemia. History of left kidney mass status post nephrectomy 2021 [facility]. Hypertension. Diverticulosis. Fatty liver. Persisting constipation. Elevated troponin. Episode of SVT. Assessment/Plan Continued all current supportive medical care. Amlodipine. Lipitor. IV antibiotics as ordered. Diuretics with Lasix. IV Hydralazine for SBP >170. Morphine for pain management. Nicardipine drip. GI prophylactics. Vasopressors for hemodynamic support. Additional plan as per the hospital course. Critical care time of 45 minutes provided to include time spent evaluation of patient at bedside, when appropriate patient/family education for diagnosis, treatment plan, review of pertinent medical information and discussion of care with specialty providers and PCP. Mechanical ventilator parameters, treatment and adjustments have personally been reviewed by me and treatment plan by payable processor has also been reviewed. Dietary Evaluation Review Comments: Continue current plan of care Expected Outcomes/Goals: Pt will meet >75% estimated needs Fu 3-5 days Plan discussed with: Other MARÍA MIGUEL MD Jul 12, 2024 14:17
[2024-07-13] VITALS (107 sets, daily range): BP systolic 77–159; BP diastolic 46–91; PULSE 54–103; RESP 11–29; TEMP 77.4–100.2; O2SAT 94–100
[2024-07-13] MEDS ORDERED: DEXTROSE (50%) 50ML SYRG IV SCH
[2024-07-13 03:56] LABS: Alanine Aminotransferase 14 U/L (7-40); Albumin 3.7 g/dL (3.2-4.8); Alkaline Phosphatase 65 U/L (46-116); Anion Gap 8 (5-15); Aspartate Aminotransferase 32 U/L (13-40); BUN/Creatinine Ratio 14.4 (10.0-20.0); Calcium 9.2 mg/dL (8.7-10.4); Carbon Dioxide 23 mmol/L (20-31); Glucose 105 mg/dL (74-106); Magnesium 2.2 mg/dL (1.6-2.6); Phosphorus 4.2 mg/dL (2.4-5.1); Potassium 4.1 mmol/L (3.5-5.1); Total Protein 5.9 g/dL (5.7-8.2)
[2024-07-13 03:57] LABS: Bilirubin, Total 0.3 mg/dL (0.2-1.0)
[2024-07-13 04:07] LABS: Blood Urea Nitrogen 42 mg/dL (9-23); Chloride 115 mmol/L (98-107); Sodium 146 mmol/L (136-145)
[2024-07-13 04:40] LABS: Triglycerides 61 mg/dL (< 150)
[2024-07-13 06:57] LABS: Base Excess -6.5 mmol/L (-2.0-3.0)
--- NOTE | 2024-07-13 06:57 | DVH ---
CHEST RADIOGRAPH Indication: INTUBATED Technique: Single frontal view of the chest was obtained Comparison: XY CHEST PORTABLE on DOS: 07/12/24 FINDINGS: Lines and Tubes: Right central venous catheter terminates in the superior vena cava. The enteric tube courses below the left hemidiaphragm and the tip extends outside the field of view. The endotracheal tube terminates 3.3 cm above the tahmina. Lungs: Left basilar opacities noted. Pleura: No effusion. No pneumothorax. Cardiomediastinal contours: Unremarkable Bones: No acute osseous abnormality. IMPRESSION: 1. Support lines and tubes in appropriate position. 2. Left basilar opacities which may reflect atelectasis or pneumonia.
[2024-07-13] MEDS ORDERED: ENOXAPARIN SOD 40 MG/0.4 ML SYRINGE SC SCH (10:00)
--- NOTE | 2024-07-13 10:23 | DVHPN2 ---
Subjective Chemically sedated Reviewed: Care Plan, H&P, Labs, Medications, Previous Orders, Radiology Changes from previous H/P or p: No Changes General: Per HPI Objective Vitals Vital Signs Date Time Temp Pulse Resp B/P (MAP) Pulse Ox O2 Delivery O2 Flow Rate FiO2 07/13/24 09:46 74 28 100/53 (69) 99 30 07/13/24 07:00 98.4 98.4 07/13/24 06:00 Mechanical Ventilator+ Intake/Output Intake and Output 07/13/24 07:00 Intake Total 3624.791 ml Output Total 4100 ml Balance -475.209 ml Intake Oral 250 ml IV Total 3374.791 ml Output Urine Total 4100 ml # Bowel Movements 1 General Appearance: mild distress, Other (Chemically sedated) HEENT: Atraumatic, PERRLA Lungs: Clear to auscultation, Normal air movement Cardiovascular: Normal S1, Normal S2 Abdomen: Normal bowel sounds, Soft, No tenderness, No hepatospenomegaly Genitourinary: No Apparent Abnormalities (Gastelum catheter) Neuro: Other (Unable to assess) Skin: Dry, Intact Psych/Mental Status: Other (Unable to assess) Medications Current Medications Medications Dose Ordered Sig/Ginger Route Start Time Stop Time Status Last Admin Dose Admin Atorvastatin Calcium 40 mg HS PO 07/06/24 22:00 07/12/24 21:49 40 MG Gabapentin 400 mg BID PO 07/06/24 22:00 Hold Levothyroxine Sodium 75 mcg QAM@0600 PO 07/07/24 06:00 07/13/24 06:08 75 MCG Montelukast Sodium 10 mg HS PO 07/06/24 22:00 07/12/24 21:48 10 MG Pregabalin 75 mg BID PO 07/06/24 22:00 07/12/24 21:48 75 MG Ondansetron HCl 4 mg Q4HP PRN IV 07/06/24 19:00 07/08/24 19:53 4 MG Acetaminophen 650 mg Q6HP PRN PO 07/06/24 19:00 07/09/24 19:41 650 MG Morphine Sulfate 4 mg Q4HPRN PRN IV 07/07/24 12:15 07/08/24 10:11 4 MG Pantoprazole Sodium 40 mg DAILY IV 07/09/24 10:00 07/12/24 10:51 40 MG Docusate Sodium 100 mg BIDPRN PRN PO 07/08/24 12:45 07/09/24 10:25 100 MG Doxycycline Hyclate 100 ml @ 50 mls/hr Q12H IV 07/09/24 15:00 07/13/24 02:31 50 MLS/HR Piperacillin Sod/ Tazobactam Sod 100 ml @ 25 mls/hr Q12H IV 07/09/24 16:00 07/13/24 03:52 25 MLS/HR Hydralazine HCl 10 mg Q6HP PRN IV 07/09/24 18:00 Midazolam HCl 50 ml @ 1 mls/hr Q24H IV 07/09/24 21:15 07/13/24 03:52 6 MLS/HR Fentanyl Citrate 250 ml @ 2.5 mls/hr Q24H IV 07/09/24 21:15 07/12/24 05:00 12.5 MLS/HR Carbamazepine 200 mg BID PO 07/09/24 22:00 07/12/24 21:52 200 MG Sodium Chloride 1,000 ml @ 100 mls/hr Q10H IV 07/10/24 20:15 07/12/24 21:49 100 MLS/HR Epoetin Julito-epbx 4,000 unit TUTHSA SC 07/11/24 11:15 07/11/24 14:34 4,000 UNIT Phenylephrine HCl 80 mg/Sodium Chloride 250 ml @ 7.5 mls/hr Q24H IV 07/11/24 15:30 07/12/24 11:46 7.5 MLS/HR Norepinephrine Bitartrate 32 mg/ Sodium Chloride 250 ml @ 0.938 mls/ hr Q24H IV 07/11/24 15:30 Lactulose 30 ml BID PO 07/12/24 10:00 07/12/24 21:48 30 ML Diagnostic Test (Pha) 1 strip Q6HR 07/13/24 00:00 07/13/24 05:48 1 STRIP Insulin Human Regular FOLLOW SLIDING SCALE Q6HR SC 07/13/24 00:00 Dextrose 50 ml UD IV 07/13/24 00:00 Enoxaparin Sodium 40 mg DAILY SC 07/13/24 10:00 UNV Enoxaparin Sodium 30 mg DAILY SC 07/13/24 10:00 Laboratory Results Laboratory Tests 07/12/24 03:30 07/13/24 03:11 Chemistry Test 07/13/24 03:11 Albumin 3.7 g/dL (3.2-4.8) Calcium Level 9.2 mg/dL (8.7-10.4) Magnesium Level 2.2 mg/dL (1.6-2.6) Phosphorus Level 4.2 mg/dL (2.4-5.1) Total Protein 5.9 g/dL (5.7-8.2) Lipid panel Test 07/13/24 03:11 Triglycerides Level 61 mg/dL (< 150) LFT Test 07/13/24 03:11 Alanine Aminotransferase (ALT) 14 U/L (7-40) Alkaline Phosphatase 65 U/L (46-116) Aspartate Amino Transferase (AST) 32 U/L (13-40) Total Bilirubin 0.3 mg/dL (0.2-1.0) Urinalysis Test 07/06/24 19:30 Urine Color Colorless (Yellow) Urine Clarity Clear (Clear) Urine pH 5.0 (5.0-9.0) Urine Specific [place] 1.006 (1.001-1.035) Urine Protein Negative (Negative) Urine Ketones Negative (Negative) Urine Blood Negative /uL (Negative) Urine Nitrite Negative (Negative) Urine Bilirubin Negative (Negative) Urine Urobilinogen Normal mg/dL (Negative) Urine Leukocyte Esterase Negative /uL (Negative) Urine RBC <1 /hpf (0 - 4) Urine Microscopic WBC 2 /HPF (0-5) Urine Squamous Epithelial Cells Few /hpf (<5) Urine Bacteria None seen /hpf (None Seen) Urine Glucose Normal mg/dL (Normal) Blood Gas Results Test 07/13/24 06:47 Arterial Blood pH 7.303 (7.350-7.450) FiO2 % 30.0 Microbiology Microbiology Date/Time Source Procedure Growth Status 07/11/24 12:00 Bronchial Washings Gram Stain - Final Resulted 07/11/24 12:00 Bronchial Washings Respiratory Culture - Preliminary Resulted 07/09/24 15:25 Trachea Gram Stain - Final Resulted 07/09/24 15: Trachea Respiratory Culture - Preliminary Resulted Labs and/or images reviewed: Labs reviewed by me, Image(s) reviewed by me Assessment/Plan Assessment/Plan Impression: -abdominal pain, questionably secondary to cholelithiasis versus constipation -constipation -cholelithiasis -obesity -acute respiratory failure with mechanical ventilation -multifocal pneumonia, probable aspiration etiology -acute kidney injury, vasomotor nephropathy, underlying CKD stage 4 -hyperchloremic metabolic acidosis -septic shock -anemia of chronic disease Plan: -continue doxycycline and Zosyn. Add micafungin for noted yeast growth -nystatin swish and swallow -stop lactulose given patient now having diarrhea -decrease PEEP to six -continue to wean Kris-Synephrine drip -change IV fluids to D5W with one amp of sodium bicarbonate x1 bag -start Nepro tube feeding -weaned sedation, transitioned to Precedex as needed -spontaneous breathing trial once appropriate -repeat labs, chest x-ray, ABG in a.m. Critical care time spent with patient discussing and formulating plan of care: 40 minutes. This does not include time spent performing procedures. This medical document was created using an electronic medical record system with [employer] dictation system. Although this document has been carefully reviewed, there may still be some phonetic and typographical errors. These areas are purely typographical due to imperfections of the software programs, and do not reflect any compromise in the patient's medical care. Plan discussed with: Patient, Other (RN) My Orders Orders - DIANE FRANKLIN NP Procedure Category Date Status Time Ventilator Orders RT 07/13/24 Verified 10:10 Micafungin Sodium PHA 07/14/24 Verified (Mycamine) 10:00 Basic Metabolic Panel LAB 07/14/24 Verified 04:00 Complete Blood Count LAB 07/14/24 Verified 04:00 Nutritional PHA 07/13/24 Verified Supplements (Nepro 10:15 Precedex Drip Rass -2 PHA 07/13/24 Verified 10:15 Chest Portable XY 07/14/24 Verified 04:00 Cpap/Sed Vacation Med ORDERS 07/13/24 Verified Weaning 10:10 Cpap Trial For Am ORDERS 07/13/24 Verified 10:10 D5 W Sodium PHA 07/13/24 Verified Bicarbonate Drip 10:15 Date of Service: Jul 13, 2024 Billing Provider: DIANE FRANKLIN NP Common Visit Codes: [id number] CARE 30-74 MIN DIANE FRANKLIN NP Jul 13, 2024 10:23
--- NOTE | 2024-07-13 10:29 | DVHPN2 ---
Progress Note Date Seen: Jul 13, 2024 Medical Necessity Reason Pt with a Central, PICC or Fol: Yes The following are medically ne: Central Line, South Catheter Reason for south catheter: Strict I&O Subjective Patient reports: Other Review of Systems: Deferred Objective vital signs Vital Sign Date Time Temp Pulse Resp B/P (MAP) Pulse Ox O2 Delivery O2 Flow Rate FiO2 07/13/24 09:46 74 28 100/53 (69) 99 30 07/13/24 07:00 98.4 98.4 07/13/24 06:00 Mechanical Ventilator+ Total Intake and Output 07/12/24 07/12/24 07/13/24 15:00 23:00 07:00 Intake Total 917.545 ml 1285.75 ml 1421.496 ml Output Total 2050 ml 2050 ml Balance 917.545 ml -764.25 ml -628.504 ml medications Current Medications Medications Dose Ordered Sig/Ginger Route Start Time Stop Time Status Last Admin Dose Admin Atorvastatin Calcium 40 mg HS PO 07/06/24 22:00 07/12/24 21:49 40 MG Gabapentin 400 mg BID PO 07/06/24 22:00 Hold Levothyroxine Sodium 75 mcg QAM@0600 PO 07/07/24 06:00 07/13/24 06:08 75 MCG Montelukast Sodium 10 mg HS PO 07/06/24 22:00 07/12/24 21:48 10 MG Pregabalin 75 mg BID PO 07/06/24 22:00 07/12/24 21:48 75 MG Ondansetron HCl 4 mg Q4HP PRN IV 07/06/24 19:00 07/08/24 19:53 4 MG Acetaminophen 650 mg Q6HP PRN PO 07/06/24 19:00 07/09/24 19:41 650 MG Morphine Sulfate 4 mg Q4HPRN PRN IV 07/07/24 12:15 07/08/24 10:11 4 MG Pantoprazole Sodium 40 mg DAILY IV 07/09/24 10:00 07/12/24 10:51 40 MG Docusate Sodium 100 mg BIDPRN PRN PO 07/08/24 12:45 07/09/24 10:25 100 MG Doxycycline Hyclate 100 ml @ 50 mls/hr Q12H IV 07/09/24 15:00 07/13/24 02:31 50 MLS/HR Piperacillin Sod/ Tazobactam Sod 100 ml @ 25 mls/hr Q12H IV 07/09/24 16:00 07/13/24 03:52 25 MLS/HR Hydralazine HCl 10 mg Q6HP PRN IV 07/09/24 18:00 Midazolam HCl 50 ml @ 1 mls/hr Q24H IV 07/09/24 21:15 07/13/24 03:52 6 MLS/HR Fentanyl Citrate 250 ml @ 2.5 mls/hr Q24H IV 07/09/24 21:15 07/12/24 05:00 12.5 MLS/HR Carbamazepine 200 mg BID PO 07/09/24 22:00 07/12/24 21:52 200 MG Epoetin Julito-epbx 4,000 unit TUTHSA SC 07/11/24 11:15 07/11/24 14:34 4,000 UNIT Phenylephrine HCl 80 mg/Sodium Chloride 250 ml @ 7.5 mls/hr Q24H IV 07/11/24 15:30 07/12/24 11:46 7.5 MLS/HR Norepinephrine Bitartrate 32 mg/ Sodium Chloride 250 ml @ 0.938 mls/ hr Q24H IV 07/11/24 15:30 Lactulose 30 ml BID PO 07/12/24 10:00 07/12/24 21:48 30 ML Diagnostic Test (Pha) 1 strip Q6HR 07/13/24 00:00 07/13/24 05:48 1 STRIP Insulin Human Regular FOLLOW SLIDING SCALE Q6HR SC 07/13/24 00:00 Dextrose 50 ml UD IV 07/13/24 00:00 Enoxaparin Sodium 40 mg DAILY SC 07/13/24 10:00 UNV Enoxaparin Sodium 30 mg DAILY SC 07/13/24 10:00 Micafungin Sodium 100 mg/Sodium Chloride 100 ml @ 100 mls/hr DAILY IV 07/14/24 10:00 Enteral Nutritional Formula 1,000 ml 30ML/HR GT 07/13/24 10:15 Dexmedetomidine HCl 400 mcg/ Dextrose 100 ml @ 4.935 mls/ hr [id number] IV 07/13/24 10:15 Examination: GENERAL:Abnormal, LUNGS:Abnormal, MSK:Normal (no edema), NEURO:Abnormal laboratory and microbiology Laboratory Tests 07/13/24 03:11 07/12/24 03:30 Test 07/13/24 03:11 Range/Units Serum Glucose 105 74-106 mg/dL Microbiology Date/Time Source Procedure Growth Status 07/11/24 12:00 Bronchial Washings Gram Stain - Final Resulted 07/11/24 12:00 Bronchial Washings Respiratory Culture - Preliminary Resulted 07/09/24 15:25 Trachea Gram Stain - Final Resulted 07/09/24 15:25 Trachea Respiratory Culture - Preliminary Resulted Problem List/Assessment/Plan Problem List/Assessment/Plan Acute kidney injury hemodynamic CKd 4 ; with solitary kidney s/p nephrectomy abdominal pain, Diverticulosis Cholelithiasis without cholecystitis constipation anemia Acute respiratory failure with multifocal pneumonia Septic shock Constipation with fecal impaction status post enema recs on bicarb drip for acidosis [address] shows no renal obstruction epogen 3x a week and iron IV on neosyn -Vasopressor Plan discussed with: Other Dietary Evaluation Review Comments: Continue current plan of care Expected Outcomes/Goals: Pt will meet >75% estimated needs Fu 3-5 days Critical Care Time (mins): 39 KYLIE ROMERO MD Jul 13, 2024 10:29
[2024-07-13] MEDS: ENOXAPARIN SOD 30 MG/0.3 ML SYRINGE SC SCH (10:46)
[2024-07-13] MEDS: SODIUM BICARB 50mEq/50ml Vial 50 ML in D5W 5% 1,000 ML IV ONE (12:49)
--- NOTE | 2024-07-13 16:15 | ECG ---
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
[2024-07-13] MEDS: Nepro With Carb Steady 1 Liter Bottle GT SCH (17:48)
--- NOTE | 2024-07-13 19:22 | DVHPN2 ---
Progress Note - Dictate Date Seen: Jul 13, 2024 Medical Necessity Reason Pt with a Central, PICC or Fol: Yes The following are medically ne: Central Line, South Catheter Reason for south catheter: Strict I&O Subjective Patient seen and examined at bedside. Intubated on mechanical ventilator. Overnight events reviewed. vital signs Vital Sign Date Time Temp Pulse Resp B/P (MAP) Pulse Ox O2 Delivery O2 Flow Rate FiO2 07/13/24 18:52 152/89 07/13/24 18:51 99.7 07/13/24 18:22 98 Mechanical Ventilator+ 30 30 07/13/24 18:21 85 28 Total Intake and Output 07/12/24 07/12/24 07/13/24 15:00 23:00 07:00 Intake Total 917.545 ml 1285.75 ml 1603.809 ml Output Total 2050 ml 2050 ml Balance 917.545 ml -764.25 ml -446.191 ml medications Current Medications Medications Dose Ordered Sig/Ginger Route Start Time Stop Time Status Last Admin Dose Admin Atorvastatin Calcium 40 mg HS PO 07/06/24 22:00 07/12/24 21:49 40 MG Gabapentin 400 mg BID PO 07/06/24 22:00 Hold Levothyroxine Sodium 75 mcg QAM@0600 PO 07/07/24 06:00 07/13/24 06:08 75 MCG Montelukast Sodium 10 mg HS PO 07/06/24 22:00 07/12/24 21:48 10 MG Pregabalin 75 mg BID PO 07/06/24 22:00 07/13/24 10:46 75 MG Ondansetron HCl 4 mg Q4HP PRN IV 07/06/24 19:00 07/08/24 19:53 4 MG Acetaminophen 650 mg Q6HP PRN PO 07/06/24 19:00 07/13/24 17:49 650 MG Morphine Sulfate 4 mg Q4HPRN PRN IV 07/07/24 12:15 07/08/24 10:11 4 MG Pantoprazole Sodium 40 mg DAILY IV 07/09/24 10:00 07/13/24 10:44 40 MG Docusate Sodium 100 mg BIDPRN PRN PO 07/08/24 12:45 07/09/24 10:25 100 MG Doxycycline Hyclate 100 ml @ 50 mls/hr Q12H IV 07/09/24 15:00 07/13/24 17:14 50 MLS/HR Piperacillin Sod/ Tazobactam Sod 100 ml @ 25 mls/hr Q12H IV 07/09/24 16:00 07/13/24 17:49 25 MLS/HR Hydralazine HCl 10 mg Q6HP PRN IV 07/09/24 18:00 Midazolam HCl 50 ml @ 1 mls/hr Q24H IV 07/09/24 21:15 07/13/24 03:52 6 MLS/HR Fentanyl Citrate 250 ml @ 2.5 mls/hr Q24H IV 07/09/24 21:15 07/12/24 05:00 12.5 MLS/HR Carbamazepine 200 mg BID PO 07/09/24 22:00 07/13/24 12:47 200 MG Epoetin Julito-epbx 4,000 unit TUTHSA SC 07/11/24 11:15 07/11/24 14:34 4,000 UNIT Phenylephrine HCl 80 mg/Sodium Chloride 250 ml @ 7.5 mls/hr Q24H IV 07/11/24 15:30 07/12/24 11:46 7.5 MLS/HR Norepinephrine Bitartrate 32 mg/ Sodium Chloride 250 ml @ 0.938 mls/ hr Q24H IV 07/11/24 15:30 Lactulose 30 ml BID PO 07/12/24 10:00 07/12/24 21:48 30 ML Diagnostic Test (Pha) 1 strip Q6HR 07/13/24 00:00 07/13/24 17:49 1 STRIP Insulin Human Regular FOLLOW SLIDING SCALE Q6HR SC 07/13/24 00:00 Dextrose 50 ml UD IV 07/13/24 00:00 Enoxaparin Sodium 40 mg DAILY SC 07/13/24 10:00 UNV Enoxaparin Sodium 30 mg DAILY SC 07/13/24 10:00 07/13/24 10:46 30 MG Micafungin Sodium 100 mg/Sodium Chloride 100 ml @ 100 mls/hr DAILY IV 07/14/24 10:00 Enteral Nutritional Formula 1,000 ml 30ML/HR GT 07/13/24 10:15 07/13/24 17:48 1,000 ML Dexmedetomidine HCl 400 mcg/ Dextrose 100 ml @ 4.935 mls/ hr [id number] IV 07/13/24 10:15 07/13/24 18:52 4.935 MLS/HR objective Gen.: Patient lying in bed in medical ICU. Intubated on mechanical ventilator. Head: Normocephalic, atraumatic. Eyes: PERRLA. Ears: Normal external anatomy. Throat: Endotracheal tube and orogastric tube in place. Neck: Supple, trachea midline. Chest: Transmitted breath sounds bilaterally. Decreased air entry bilaterally. No wheezing. Bibasilar crackles. Cardiovascular: Positive S1, positive S2. Regular rate and rhythm. Abdomen: Positive bowel sounds in all 4 quadrants. Soft, nontender, nondistended. : South in place. Normal external genitalia. Rectal: Deferred. Skin: Warm, dry. Intact. Extremities: 2+ radial pulses bilaterally. No lower extremity edema. Neuro: Off sedation laboratory and microbiology Laboratory Tests 07/13/24 03:11 07/12/24 03:30 Test 07/13/24 03:11 Range/Units Serum Glucose 105 74-106 mg/dL Assessment/Plan Impression: Acute hypoxic respiratory failure On mechanical ventilator Aspiration pneumonia and aspiration pneumonitis Shock Chronic kidney disease Hypokalemia Chronic anemia Elevated troponin. Constipation Events: Remains on vent support On AC mode; RR 22, VT 400, PEEP 6, FiO2 30% Off sedation Off pressors, hemodynamically stable. Continue antibiotics Low-grade fever s/p 1 unit PRBC yesterday Monitor hemoglobin Iron supplementation Patient failed CPAP this AM. Received 1 amp bicarb drip ABG reviewed, notable for acidemia CXR reviewed, Left basilar opacities which may reflect atelectasis or pneumonia. Devices in place. Labs and imaging reviewed. Rest of plan as noted below Plan: s/p intubation on mechanical ventilator. On AC mode; RR 22, VT 400, PEEP 6, FiO2 30% Titrate FIO2 to keep O2 saturation above 90%. VAP bundle. Daily ABG and CXR while intubated Off sedation Continue antibiotics. F/u cultures. Pressors if necessary for hemodynamic support Titrate to keep mean arterial pressure greater than 65 mmHg. Monitor renal function Monitor electrolytes. Supplement as necessary. Monitor ins and outs. S/p bronchoscopy with RML BAL on 07/11/24 - see separate procedure note for details Follow up BAL cultures GI prophylaxis. DVT prophylaxis. Prognosis: Poor given patient's multiple co-morbidities. Condition: Critical Rest of plan per hospitalist and other consultants. A total of 35 minutes of critical care time was spent reviewing the patient record, examining the patient, making a diagnostic and therapeutic plan, discussing this plan with the medical personnel, following up on diagnostic studies and following the patient for clinical stability excluding any and all procedures. At least 50% of this time was spent in direct, [id number] contact. Thank you Dr. Bhaita, for allowing me to participate in this patient's care. Further recommendations will depend on the patient's clinical course. Please do not hesitate to contact me if you have any questions or concerns. This medical document was created using an electronic medical record system with [employer] dictation system. Although these documentations are being carefully reviewed, there may still be some phonetic and typographical changes. The errors are purely typographical, due to imperfection on the software program, and do not reflect any compromise in the patient's medical care. Dietary Evaluation Review Comments: Continue current plan of care Expected Outcomes/Goals: Pt will meet >75% estimated needs Fu 3-5 days Plan discussed with: Other (KATHE Marie) Critical Care Time(min): 35 ABIMBOLA PAYNE MD Jul 13, 2024 19:22
--- NOTE | 2024-07-13 22:12 | DVHPN2 ---
Progress Note - Dictate Date Seen: Jul 13, 2024 Medical Necessity Reason Pt with a Central, PICC or Fol: Yes The following are medically ne: Central Line, South Catheter Reason for south catheter: Strict I&O Subjective Patient was seen and evaluated in follow up in the ICU. Patient is intubated and sedated on ventilator. 30% FiO2. Chest x-ray shows left basilar opacities which may reflect atelectasis or pneumonia. WBC 11, HGB 8.9, HCT 27, NA 146, BUN 42, Home Child Care Provider 2.91. Occult blood stool is negative. vital signs Vital Sign Date Time Temp Pulse Resp B/P (MAP) Pulse Ox O2 Delivery O2 Flow Rate FiO2 07/13/24 21:15 99.1 70 20 99/61 (74) 100 210.4 07/13/24 20:02 30 07/13/24 20:00 Mechanical Ventilator+ Total Intake and Output 07/12/24 07/12/24 07/13/24 15:00 23:00 07:00 Intake Total 917.545 ml 1285.75 ml 1603.809 ml Output Total 2050 ml 2050 ml Balance 917.545 ml -764.25 ml -446.191 ml medications Current Medications Medications Dose Ordered Sig/Ginger Route Start Time Stop Time Status Last Admin Dose Admin Atorvastatin Calcium 40 mg HS PO 07/06/24 22:00 07/13/24 21:43 40 MG Gabapentin 400 mg BID PO 07/06/24 22:00 Hold Levothyroxine Sodium 75 mcg QAM@0600 PO 07/07/24 06:00 07/13/24 06:08 75 MCG Montelukast Sodium 10 mg HS PO 07/06/24 22:00 07/13/24 21:43 10 MG Pregabalin 75 mg BID PO 07/06/24 22:00 07/13/24 21:43 75 MG Ondansetron HCl 4 mg Q4HP PRN IV 07/06/24 19:00 07/08/24 19:53 4 MG Acetaminophen 650 mg Q6HP PRN PO 07/06/24 19:00 07/13/24 17:49 650 MG Morphine Sulfate 4 mg Q4HPRN PRN IV 07/07/24 12:15 07/08/24 10:11 4 MG Pantoprazole Sodium 40 mg DAILY IV 07/09/24 10:00 07/13/24 10:44 40 MG Docusate Sodium 100 mg BIDPRN PRN PO 07/08/24 12:45 07/09/24 10:25 100 MG Doxycycline Hyclate 100 ml @ 50 mls/hr Q12H IV 07/09/24 15:00 07/13/24 17:14 50 MLS/HR Piperacillin Sod/ Tazobactam Sod 100 ml @ 25 mls/hr Q12H IV 07/09/24 16:00 07/13/24 17:49 25 MLS/HR Hydralazine HCl 10 mg Q6HP PRN IV 07/09/24 18:00 Midazolam HCl 50 ml @ 1 mls/hr Q24H IV 07/09/24 21:15 07/13/24 03:52 6 MLS/HR Fentanyl Citrate 250 ml @ 2.5 mls/hr Q24H IV 07/09/24 21:15 07/12/24 05:00 12.5 MLS/HR Carbamazepine 200 mg BID PO 07/09/24 22:00 07/13/24 21:43 200 MG Epoetin Julito-epbx 4,000 unit TUTHSA SC 07/11/24 11:15 07/11/24 14:34 4,000 UNIT Phenylephrine HCl 80 mg/Sodium Chloride 250 ml @ 7.5 mls/hr Q24H IV 07/11/24 15:30 07/12/24 11:46 7.5 MLS/HR Norepinephrine Bitartrate 32 mg/ Sodium Chloride 250 ml @ 0.938 mls/ hr Q24H IV 07/11/24 15:30 Lactulose 30 ml BID PO 07/12/24 10:00 07/12/24 21:48 30 ML Diagnostic Test (Pha) 1 strip Q6HR 07/13/24 00:00 07/13/24 17:49 1 STRIP Insulin Human Regular FOLLOW SLIDING SCALE Q6HR SC 07/13/24 00:00 Dextrose 50 ml UD IV 07/13/24 00:00 Enoxaparin Sodium 40 mg DAILY SC 07/13/24 10:00 UNV Enoxaparin Sodium 30 mg DAILY SC 07/13/24 10:00 07/13/24 10:46 30 MG Micafungin Sodium 100 mg/Sodium Chloride 100 ml @ 100 mls/hr DAILY IV 07/14/24 10:00 Enteral Nutritional Formula 1,000 ml 30ML/HR GT 07/13/24 10:15 07/13/24 17:48 1,000 ML Dexmedetomidine HCl 400 mcg/ Dextrose 100 ml @ 4.935 mls/ hr [id number] IV 07/13/24 10:15 07/13/24 18:52 4.935 MLS/HR objective GENERAL: Intubated on ventilator. LUNGS: Decreased breath sounds. CARDIOVASCULAR: Heart sounds are good. ABDOMEN: Soft. laboratory and microbiology Laboratory Tests 07/13/24 03:11 07/12/24 03:30 Test 07/13/24 03:11 Range/Units Serum Glucose 105 74-106 mg/dL Problem List Acute hypoxic respiratory failure due to aspiration pneumonia/aspiration pneumonitis. Aspiration pneumonia. Intractable vomiting. Shock, septic possible. Symptomatic cholelithiasis possible. Chronic kidney disease. Hypokalemia. Chronic anemia. History of left kidney mass status post nephrectomy 2021 [facility]. Hypertension. Diverticulosis. Fatty liver. Persisting constipation. Elevated troponin. Episode of SVT. Assessment/Plan Continued all current supportive medical care. Amlodipine. Lipitor. IV antibiotics as ordered. Diuretics with Lasix. IV Hydralazine for SBP >170. Morphine for pain management. Nicardipine drip. GI prophylactics. Vasopressors for hemodynamic support. Additional plan as per the hospital course. Critical care time of 45 minutes provided to include time spent evaluation of patient at bedside, when appropriate patient/family education for diagnosis, treatment plan, review of pertinent medical information and discussion of care with specialty providers and PCP. Mechanical ventilator parameters, treatment and adjustments have personally been reviewed by me and treatment plan by punch finisher has also been reviewed. Dietary Evaluation Review Comments: Continue current plan of care Expected Outcomes/Goals: Pt will meet >75% estimated needs Fu 3-5 days Plan discussed with: Other MARÍA MIGUEL MD Jul 13, 2024 22:12
[2024-07-14] VITALS (104 sets, daily range): BP systolic 66–181; BP diastolic 37–111; PULSE 53–114; RESP 12–40; TEMP 96.8–100.4; O2SAT 93–100
[2024-07-14 04:03] LABS: Potassium 3.7 mmol/L (3.5-5.1); Sodium 141 mmol/L (136-145)
[2024-07-14 04:04] LABS: Anion Gap 9 (5-15); Calcium 9.5 mg/dL (8.7-10.4); Carbon Dioxide 24 mmol/L (20-31)
[2024-07-14 04:09] LABS: Glucose 88 mg/dL (74-106)
[2024-07-14 04:12] LABS: Basophils # (auto) 0 10 ^3/uL (0-0.2); Basophils % (auto) 0.4 % (0.0-2.0); Eosinophils # (auto) 0.1 10 ^3/uL (0-0.8); Eosinophils % (auto) 2.2 % (0.0-7.0); Hematocrit 27.1 % (36.0-46.0); Hemoglobin 9.1 g/dL (12.2-16.2); Lymphocytes # (auto) 0.8 10 ^3/uL (0.4-5.4); Mean Corpuscular Hemoglobin 29.4 pg (28.0-32.0); Mean Corpuscular Hgb Conc. 33.8 g/dL (32.0-36.0); Mean Corpuscular Volume 87.1 fL (80.0-100.0); Monocytes # (auto) 0.6 10 ^3/uL (0-1.3); Monocytes % (auto) 9.9 % (0.0-12.0); Neutrophils # (auto) 4.6 10 ^3/uL (1.6-8.6); Neutrophils % (auto) 74.5 % (37.0-80.0); Nucleated Red Blood Cells % 0.1 %; Platelet Count (auto) 128 10^3/uL (140-450); Red Blood Cells 3.11 10^6/uL (4.0-5.20); Red Cell Distribution Width 15.7 % (11.8-14.3); White Blood Cell 6.2 10^3/uL (4.4-10.8)
[2024-07-14 04:13] LABS: Blood Urea Nitrogen 46 mg/dL (9-23); Chloride 108 mmol/L (98-107)
--- NOTE | 2024-07-14 05:14 | DVH ---
EXAM: XR Chest, 1 View CLINICAL INDICATION: pna TECHNIQUE: Frontal view of the chest. COMPARISON: XY CHEST PORTABLE on DOS: 07/13/24, XY CHEST PORTABLE on DOS: 07/12/24, XY CHEST XRAY 1 V IEW on DOS: 07/11/24, XY CHEST XRAY 1 VIEW on DOS: 07/10/24, XY CHEST PORTABLE on DOS: 07/09/24 FINDINGS: LUNGS AND PLEURAL SPACES: Left basilar atelectasis or pneumonia. Pulmonary venous congestion. No pneumothorax. HEART: Unremarkable. No cardiomegaly. MEDIASTINUM: Unremarkable. Normal mediastinal contour. BONES/JOINTS: Unremarkable. No acute fracture. TUBES, LINES AND DEVICES: Stable tubes and lines. OTHER FINDINGS: . .. IMPRESSION: 1. Left basilar atelectasis or pneumonia. 2. Pulmonary venous congestion.
[2024-07-14] MEDS: hydrALAZINE HCL 20 MG/ML VL IV PRN (06:52)
[2024-07-14] MEDS ORDERED: LABETALOL HCL 20 MG/4 ML VL IV PRN (08:45)
--- NOTE | 2024-07-14 09:14 | DVHPN2 ---
Subjective Unable to assess Reviewed: Care Plan, H&P, Labs, Medications, Previous Orders, Radiology Changes from previous H/P or p: No Changes General: Per HPI Objective Vitals Vital Signs Date Time Temp Pulse Resp B/P (MAP) Pulse Ox O2 Delivery O2 Flow Rate FiO2 07/14/24 07:01 99.5 80 15 181/88 (119) 99 211.1 07/14/24 06:16 30 07/14/24 06:00 Mechanical Ventilator+ Intake/Output Intake and Output 07/14/24 06:59 Intake Total 2689.271 ml Output Total 3125 ml Balance -435.729 ml Intake Oral 500 ml IV Total 2161.271 ml Tube Feeding 28 ml Output Urine Total 3125 ml # Bowel Movements 1 General Appearance: mild distress, Other (Chemically sedated) HEENT: Atraumatic, PERRLA Lungs: Clear to auscultation, Normal air movement Cardiovascular: Normal S1, Normal S2 Abdomen: Normal bowel sounds, Soft, No tenderness, No hepatospenomegaly Genitourinary: No Apparent Abnormalities (Gastelum catheter) Neuro: Other (Unable to assess) Skin: Dry, Intact Psych/Mental Status: Other (Unable to assess) Medications Current Medications Medications Dose Ordered Sig/Ginger Route Start Time Stop Time Status Last Admin Dose Admin Atorvastatin Calcium 40 mg HS PO 07/06/24 22:00 07/13/24 21:43 40 MG Gabapentin 400 mg BID PO 07/06/24 22:00 Hold Levothyroxine Sodium 75 mcg QAM@0600 PO 07/07/24 06:00 07/14/24 05:41 75 MCG Montelukast Sodium 10 mg HS PO 07/06/24 22:00 07/13/24 21:43 10 MG Ondansetron HCl 4 mg Q4HP PRN IV 07/06/24 19:00 07/08/24 19:53 4 MG Acetaminophen 650 mg Q6HP PRN PO 07/06/24 19:00 07/13/24 17:49 650 MG Morphine Sulfate 4 mg Q4HPRN PRN IV 07/07/24 12:15 07/08/24 10:11 4 MG Pantoprazole Sodium 40 mg DAILY IV 07/09/24 10:00 07/13/24 10:44 40 MG Docusate Sodium 100 mg BIDPRN PRN PO 07/08/24 12:45 07/09/24 10:25 100 MG Doxycycline Hyclate 100 ml @ 50 mls/hr Q12H IV 07/09/24 15:00 07/14/24 02:32 50 MLS/HR Piperacillin Sod/ Tazobactam Sod 100 ml @ 25 mls/hr Q12H IV 07/09/24 16:00 07/14/24 04:08 25 MLS/HR Hydralazine HCl 10 mg Q6HP PRN IV 07/09/24 18:00 07/14/24 06:52 10 MG Midazolam HCl 50 ml @ 1 mls/hr Q24H IV 07/09/24 21:15 07/13/24 03:52 6 MLS/HR Fentanyl Citrate 250 ml @ 2.5 mls/hr Q24H IV 07/09/24 21:15 07/12/24 05:00 12.5 MLS/HR Carbamazepine 200 mg BID PO 07/09/24 22:00 07/13/24 21:43 200 MG Epoetin Julito-epbx 4,000 unit TUTHSA SC 07/11/24 11:15 07/11/24 14:34 4,000 UNIT Norepinephrine Bitartrate 32 mg/ Sodium Chloride 250 ml @ 0.938 mls/ hr Q24H IV 07/11/24 15:30 Diagnostic Test (Pha) 1 strip Q6HR 07/13/24 00:00 07/14/24 05:42 1 STRIP Insulin Human Regular FOLLOW SLIDING SCALE Q6HR SC 07/13/24 00:00 Dextrose 50 ml UD IV 07/13/24 00:00 Enoxaparin Sodium 40 mg DAILY SC 07/13/24 10:00 UNV Enoxaparin Sodium 30 mg DAILY SC 07/13/24 10:00 07/13/24 10:46 30 MG Micafungin Sodium 100 mg/Sodium Chloride 100 ml @ 100 mls/hr DAILY IV 07/14/24 10:00 Enteral Nutritional Formula 1,000 ml 30ML/HR GT 07/13/24 10:15 07/13/24 17:48 1,000 ML Dexmedetomidine HCl 400 mcg/ Dextrose 100 ml @ 4.935 mls/ hr [id number] IV 07/13/24 10:15 07/13/24 18:52 4.935 MLS/HR Labetalol HCl 10 mg Q2HPRN PRN IV 07/14/24 08:45 UNV Laboratory Results Laboratory Tests 07/14/24 03:32 Chemistry Test 07/14/24 03:32 Calcium Level 9.5 mg/dL (8.7-10.4) Urinalysis Test 07/06/24 19:30 Urine Color Colorless (Yellow) Urine Clarity Clear (Clear) Urine pH 5.0 (5.0-9.0) Urine Specific [place] 1.006 (1.001-1.035) Urine Protein Negative (Negative) Urine Ketones Negative (Negative) Urine Blood Negative /uL (Negative) Urine Nitrite Negative (Negative) Urine Bilirubin Negative (Negative) Urine Urobilinogen Normal mg/dL (Negative) Urine Leukocyte Esterase Negative /uL (Negative) Urine RBC <1 /hpf (0 - 4) Urine Microscopic WBC 2 /HPF (0-5) Urine Squamous Epithelial Cells Few /hpf (<5) Urine Bacteria None seen /hpf (None Seen) Urine Glucose Normal mg/dL (Normal) Microbiology Microbiology Date/Time Source Procedure Growth Status 07/11/24 12:00 Bronchial Washings Gram Stain - Final Resulted 07/11/24 12:00 Bronchial Washings Respiratory Culture - Preliminary Resulted 07/09/24 15:25 Trachea Gram Stain - Final Complete 07/09/24 15:25 Trachea Respiratory Culture - Final Complete Labs and/or images reviewed: Labs reviewed by me, Image(s) reviewed by me Assessment/Plan Assessment/Plan Impression: -abdominal pain, questionably secondary to cholelithiasis versus constipation -constipation -cholelithiasis -obesity -acute respiratory failure with mechanical ventilation -multifocal pneumonia, probable aspiration etiology -acute kidney injury, vasomotor nephropathy, underlying CKD stage 4 -hyperchloremic metabolic acidosis -septic shock -anemia of chronic disease Plan: Events: Off sedation. No purposeful movement. Off pressors. ABG improved -continue doxycycline, Zosyn, and Micafungin -CT head -nystatin swish and swallow -stop lactulose given patient now having diarrhea -start Nepro tube feeding -SBT when appropriate -repeat labs, chest x-ray, ABG in a.m. Critical care time spent with patient discussing and formulating plan of care: 40 minutes. This does not include time spent performing procedures. This medical document was created using an electronic medical record system with Dragon computerized dictation system. Although this document has been carefully reviewed, there may still be some phonetic and typographical errors. These areas are purely typographical due to imperfections of the software programs, and do not reflect any compromise in the patient's medical care. Plan discussed with: Patient, Other (RN) My Orders Orders - DIANE FRANKLIN NP Procedure Category Date Status Time Ventilator Orders RT 07/13/24 Transmitted 10:10 Micafungin Sodium PHA 07/14/24 In Process (Mycamine) 10:00 Nutritional PHA 07/13/24 In Process Supplements (Nepro 10:15 D5w 5% (Dextrose 5%) PHA 07/13/24 In Process W/Dexmedetomidine 10:15 Chest Portable XY 07/14/24 Resulted 04:00 Cpap/Sed Vacation Med ORDERS 07/13/24 Transmitted Weaning 10:10 Cpap Trial For Am ORDERS 07/13/24 Transmitted 10:10 Cpap/Sed Vacation Med ORDERS 07/14/24 Transmitted Weaning 08:26 Cpap Trial For Am ORDERS 07/14/24 Transmitted 08:26 Labetalol Hcl PHA 07/14/24 Logged (Labetalol Hcl) 08:45 Basic Metabolic Panel LAB 07/15/24 Verified 04:00 Complete Blood Count LAB 07/15/24 Verified 04:00 Thyroid Stimulating LAB 07/14/24 Logged Hormone 09:04 Vitamin B12 LAB 07/14/24 Logged 09:04 Vitamin D 25-Hydroxy LAB 07/14/24 Logged D2 + D3 09:[address] 07/14/24 Logged 09:04 Comprehensive LAB 07/15/24 Verified Metabolic Panel 04:00 Abg W/ Co-Ox RT 07/15/24 Logged 04:00 Date of Service: Jul 14, 2024 Billing Provider: DIANE FRANKLIN NP Common Visit Codes: [id number] CARE 30-74 MIN DIANE FRANKLIN NP Jul 14, 2024 09:14
[2024-07-14 09:32] LABS: Base Excess -2.1 mmol/L (-2.0-3.0)
[2024-07-14] MEDS: MICAFUNGIN SODIUM 100 MG in SODIUM CHL 0.9% 100 ML IV SCH (10:12)
--- NOTE | 2024-07-14 12:04 | DVH ---
EXAM: CT HEAD WITHOUT CONTRAST INDICATION: aloc, Anoxic injury TECHNIQUE: CT of the head without intravenous contrast. Coronal and sagittal reformatted images are s ubmitted. Radiation Dose : 1. Head: CT Dose: CTDI volume is 66.47 mGy. Dose-length product is 1309.58 mGy*cm The dose indicators for CT are the volume Computed Tomography (CT) Dose Index (CTDIvol) and the Dose Length Product (DLP), and are measured in units of mGy and mGy-cm, respectively. These indicators are not patient dose, but values generated from the CT scanner acquisition factors. The report includes radiation exposure data for exposures received during this examination. All CT scans at this medical facility are performed using dose modulation techniques as appropriate to a performed exam including the following: Automated exposure control was utilized; adjustment of the MA and/or KV according to patient size; and use of iterative reconstruction technique. COMPARISON: CT HEAD WITHOUT CONTRAST on DOS: 07/10/24 FINDINGS: There is no evidence of acute intracranial hemorrhage, extra-axial collection, mass effect, midline s hift, herniation or hydrocephalus. There are periventricular and subcortical hypodensities, nonspecific, but likely reflecting sequelae of chronic microvascular ischemic changes. Stable chronic appearing left lacunar infarct. The ventricles, sulci and cisterns are age appropriate. The beckett-white differentiation is intact. The mastoid air cells are clear. Mucosal thickening in the left maxillary sinus. Trace mucosal thick ening in the right maxillary sinus. Air-fluid levels in the sphenoid sinus. Mild mucosal thickening in the ethmoid air cells. No depressed calvarial fracture. The surrounding soft tissues are unremarkable. IMPRESSION: 1. No evidence of acute intracranial abnormality. 2. Mild white matter disease, nonspecific but most commonly associated with sequelae of chronic micro vascular ischemic changes. 3. Acute sinusitis.
[2024-07-14] MEDS: NYSTATIN (MOUTH-THROAT) 500,000 UNITS/5 ML SUSP MT SCH (12:25)
--- NOTE | 2024-07-14 14:06 | DVHPN2 ---
Progress Note Date Seen: Jul 14, 2024 Medical Necessity Reason Pt with a Central, PICC or Fol: Yes The following are medically ne: Central Line, South Catheter Reason for south catheter: Strict I&O Objective vital signs Vital Sign Date Time Temp Pulse Resp B/P (MAP) Pulse Ox O2 Delivery O2 Flow Rate FiO2 07/14/24 13:01 100.4 07/14/24 12:45 107 16 147/88 (107) 99 07/14/24 12:00 Mechanical Ventilator+ 30 30 Total Intake and Output 07/13/24 07/13/24 07/14/24 15:00 23:00 07:00 Intake Total 783.815 ml 1270.398 ml 457.680 ml Output Total 2000 ml 1125 ml Balance 783.815 ml -729.602 ml -667.320 ml medications Current Medications Medications Dose Ordered Sig/Ginger Route Start Time Stop Time Status Last Admin Dose Admin Atorvastatin Calcium 40 mg HS PO 07/06/24 22:00 07/13/24 21:43 40 MG Gabapentin 400 mg BID PO 07/06/24 22:00 Hold Levothyroxine Sodium 75 mcg QAM@0600 PO 07/07/24 06:00 07/14/24 05:41 75 MCG Montelukast Sodium 10 mg HS PO 07/06/24 22:00 07/13/24 21:43 10 MG Ondansetron HCl 4 mg Q4HP PRN IV 07/06/24 19:00 07/08/24 19:53 4 MG Acetaminophen 650 mg Q6HP PRN PO 07/06/24 19:00 07/14/24 13:01 650 MG Morphine Sulfate 4 mg Q4HPRN PRN IV 07/07/24 12:15 07/08/24 10:11 4 MG Pantoprazole Sodium 40 mg DAILY IV 07/09/24 10:00 07/14/24 10:12 40 MG Docusate Sodium 100 mg BIDPRN PRN PO 07/08/24 12:45 07/09/24 10:25 100 MG Doxycycline Hyclate 100 ml @ 50 mls/hr Q12H IV 07/09/24 15:00 07/14/24 02:32 50 MLS/HR Piperacillin Sod/ Tazobactam Sod 100 ml @ 25 mls/hr Q12H IV 07/09/24 16:00 4/1/25 04:08 25 MLS/HR Hydralazine HCl 10 mg Q6HP PRN IV 07/09/24 18:00 07/14/24 06:52 10 MG Midazolam HCl 50 ml @ 1 mls/hr Q24H IV 07/09/24 21:15 07/13/24 03:52 6 MLS/HR Fentanyl Citrate 250 ml @ 2.5 mls/hr Q24H IV 07/09/24 21:15 07/12/24 05:00 12.5 MLS/HR Carbamazepine 200 mg BID PO 07/09/24 22:00 07/14/24 10:14 200 MG Epoetin Julito-epbx 4,000 unit TUTHSA SC 07/11/24 11:15 07/14/24 10:13 4,000 UNIT Norepinephrine Bitartrate 32 mg/ Sodium Chloride 250 ml @ 0.938 mls/ hr Q24H IV 07/11/24 15:30 Diagnostic Test (Pha) 1 strip Q6HR 07/13/24 00:00 07/14/24 12:25 1 STRIP Insulin Human Regular FOLLOW SLIDING SCALE Q6HR SC 07/13/24 00:00 Dextrose 50 ml UD IV 07/13/24 00:00 Enoxaparin Sodium 40 mg DAILY SC 07/13/24 10:00 UNV Enoxaparin Sodium 30 mg DAILY SC 07/13/24 10:00 07/14/24 10:13 30 MG Micafungin Sodium 100 mg/Sodium Chloride 100 ml @ 100 mls/hr DAILY IV 07/14/24 10:00 07/14/24 10:12 100 MLS/HR Enteral Nutritional Formula 1,000 ml 30ML/HR GT 07/13/24 10:15 07/13/24 17:48 1,000 ML Dexmedetomidine HCl 400 mcg/ Dextrose 100 ml @ 4.935 mls/ hr [id number] IV 07/13/24 10:15 07/13/24 18:52 4.935 MLS/HR Labetalol HCl 10 mg Q2HPRN PRN IV 07/14/24 08:45 Nystatin 5 ml QID MT 07/14/24 12:00 07/14/24 12:25 5 ML laboratory and microbiology Laboratory Tests 07/14/24 03:32 Test 07/14/24 03:32 Range/Units Serum Glucose 88 74-106 mg/dL Microbiology Date/Time Source Procedure Growth Status 07/11/24 12:00 Bronchial Washings Gram Stain - Final Resulted 07/11/24 12:00 Respiratory Culture - Preliminary Presumptive Zuleyka albicans Resulted 07/09/24 15:25 Trachea Gram Stain - Final Complete 07/09/24 15:25 Trachea Respiratory Culture - Final Complete Problem List/Assessment/Plan Problem List/Assessment/Plan INTUBATED CARDIORESPIRATORY EVENT ON VASOPRESSOR SUPPORT BUT LESS POSSIBLE ASPIRATION CONTINUE CLOSE OBSERVATION HIGH RISK FOR SURGERY Plan discussed with: Other Dietary Evaluation Review Comments: Continue current plan of care Expected Outcomes/Goals: Pt will meet >75% estimated needs Fu 3-5 days SWATHI VILLANUEVA MD Jul 14, 2024 14:06
[2024-07-14] MEDS: ACETAMINOPHEN IV 1000 MG/100ML (10MG/ML) IV ONE (14:58)
--- NOTE | 2024-07-14 17:59 | DVHNC2 ---
Procedure - Bronchoscopy procedure note: Indications: Aspiration pneumonia, Possible mucous plugging. Medicines: See MARKETING PROJECT SPECIALIST notes. Complications: None Procedure: Patient medications and allergies reviewed. ConsetnPatient identification and proposed procedure were verified prior to the procedure by the physician, and a nurse, and the respiratory therapist in ICU room. The heart rate, respiratory rate, oxygen saturations, blood pressure, adequacy of pulmonary ventilation, and response to care were monitored throughout the procedure. The physical status of the patient was reassessed after the procedure. After obtaining informed consent, the bronchoscope was introduced through the endotracheal tube and advanced into the trachea bronchial tree of both lungs. The procedure was accomplished without difficulty. The patient tolerated the procedure well. Findings: The trachea is in normal caliber. The tahmina is sharp. The tracheobronchial tree of the right lung was examined to at least the first subsegmental level. The bronchial mucosa and anatomy in the right lung are normal. There are no endobronchial lesions. There was scant whitish secretions from right main stem bronchus onward throughout R6-R10. The left upper lobe, lingula, and left lower lobe were examined to at least the first subsegmental level. Bronchial mucosa and anatomy in the left upper lobe and lingula are normal. There were no endobronchial lesions. There was scant whitish secretions from left main stem bronchus onward throughout L1-L10. On exam of oropharynx, there were copious oral secretions. There was no active bleeding at the completion of the procedure. Estimated blood loss: Less than 5 mL. Impression: Atelectasis due to mucous plugging Scant secretions bilaterally Copious secretions in the oropharynx Recommendation: Oral care Procedure codes: 38893, bronchoscopy, rigid and flexible, including fluoroscopic guidance, one performed; with bronchial endobronchial broncho-alveolar lavage, single or multiple sites ABIMBOLA PAYNE MD Jul 14, 2024 17:59
--- NOTE | 2024-07-14 18:33 | DVHINCON2 ---
Date of service: Jul 14, 2024 Referring Physician Jorge Reason for Consultation ? Anoxic brain injury History of Present Illness Ms. Randolph is a 74 years old female with a history of hypertension, dyslipidemia, congestive heart failure, asthma, solitary kidney, obesity, she came to the [facility] on 07/06/2024 with a chief company of right flank pain for three days, in the hospital, the patient was found to have constipation. On 07/09/2024, when she was on bedside commode for bowel movement, she reported syncopal symptoms, and she was helped to back to bed, where she had vomiting and then she become nonresponsive to painful stimuli, the patient was intubated and transferred to ICU. Her sedation was discontinued at 07/13/24 11am, but resumed around 7:00 p.m., this morning the sedation was cut off again but Precedex restarted around 5:00 p.m. because of tachypnea With decreased or holding off sedation, the patient was not waking up or nonresponsive to strong painful stimuli Around 07/14/24 7:00 p.m. I noticed the patient was responsive to strong painful stimuli Her hospital stay is also complicated with sepsis, septic shock, acute kidney failure Sputum culture, 07/11/2024: Principal to [place] albicans Urinalysis, 07/06/2024: WBC: 2, urine leukocyte esterase: Negative ABG, 07/09/2024: Acidosis 07/10/2024: Metabolic acidosis, 07/12/2024: Metabolic acidosis, 07/13/2024: Metabolic acidosis WBC/HB/PLT/MCV, 07/14/2024: 6.1/9.1/128/87.1 BUN/CR, 07/06/2024: 32/2.63, 07/09/24: 34/3.44, 07/12/2024: 32/2.81, 07/14/2024: 46/2.7 Liver function tests, 07/09/2024: Unremarkable Vitamin B12, 07/14/2024: 2949 TSH, 07/14/2024: 2.19 Chest x-ray, 07/14/2024: 1. Left basilar atelectasis or pneumonia. 2. Pulmonary venous congestion. CT head, 07/10/2024: Punctate focus of hypodensity over the left thalamus with hypodense focus of the right cerebellar which may represent lacunar infarct of unknown chronicity. Otherwise, no evidence for acute intracranial abnormalities. If symptoms persist, MRI may be considered for further evaluation. CT head, 07/14/2024: 1. No evidence of acute intracranial abnormality. 2. Mild white matter disease, nonspecific but most commonly associated with sequelae of chronic microvascular ischemic changes. 3. Acute sinusitis. Past Medical History Hypertension, dyslipidemia, congestive heart failure, asthma, solitary kidney Past Surgical History Hysterectomy, kidney removal Family History: Patient reports no known family medical history. Family History Unknown Social History Smoker: Non-Smoker Alcohol: Denies ETOH Use Drugs: Denies Drug Use Lives In: Home Allergies: Coded Allergies: NO KNOWN ALLERGIES (Unverified , 11/11/18) Home Meds Active Scripts Methylprednisolone (Medrol Dosepak) 4 Mg Gerald, 4 MG PO UD, #21 TAB UAD Prov:DIANE FRANKLIN [employer]UR[employer] MANAGEMENT SPECIALIST 03/17/24 Docusate Sodium (Colace) 100 Mg Cap, 1 CAP PO BID, #60 CAP 2 Refills Prov:JUAN DOUGLAS MD 08/09/22 Hydrocodone-Acetaminophen (Hydrocodone Bitartrate/AC 5-325 mg) 1 Tab Tab, 1 TAB PO Q6HP PRN, #30 TAB Prov:JUAN DOUGLAS MD 08/09/22 Ondansetron (Zofran) 4 Mg Tab, 4 MG PO Q4HP PRN, #30 TAB Prov:JUAN DOUGLAS MD 08/09/22 Reported Medications Febuxostat (Febuxostat) 40 Mg Tab, 1 TAB PO DAILY for 30 Days, #30 07/07/24 Diclofenac Sodium (Diclofenac Sodium Ec) 50 Mg Tab, 1 TAB PO Q12HR for 30 Days, #60 07/07/24 Epoetin Julito (Epogen) 20,000 Unit/Ml Inj, 1 ML SC Q30D for 60 Days, #2 07/07/24 Gabapentin (Gabapentin) 400 Mg Cap, 1 CAP PO TID for 40 Days, #120 07/07/24 B-Complex W/ C & Folic Acid (Rebecca-[facility] Rx) Tab, 1 TAB PO DAILY for 30 Days, #30 03/12/24 Fluticasone Propionate (Nasal) (Fluticasone Propionate Na) 50 Mcg/Act Spr, 1 SPRAY EACHNOSTRI BID for 30 Days, #16 03/12/24 Oxycodone W/ Acetaminophen (Apap/Oxycodone) 1 Tab Tab, 1 TAB PO Q8HR for 30 Days, #90 03/12/24 Pregabalin (Lyrica) 75 Mg Cap, 1 CAP PO Q12HR for 30 Days, #60 03/12/24 Losartan Potassium (Losartan Potassium) 50 Mg Tab, 0.5 TAB PO DAILY for 100 Days, #50 03/12/24 Furosemide (Furosemide) 40 Mg Tab, 1 TAB PO QAM PRN for 30 Days, #30 03/12/24 Ferrous Sulfate (Ferosul) 325 Mg Tab, 1 TAB PO 3X/WEEK for 84 Days, #36 03/12/24 Clonazepam (Clonazepam) 0.5 Mg Tab, 1 TAB PO BIDPRN for 88 Days, #176 03/12/24 Carbamazepine (Carbamazepine) 200 Mg Tab, 1 TAB PO BID for 90 Days, #180 03/12/24 Oxycodone Hcl (OxyCONTIN ER Tablet) 10 Mg Tb, 1 TAB PO BID, #60 TAB 03/12/24 Omeprazole ([facility] Omeprazole Odt) 20 Mg Tab, 1 TAB PO BID 08/03/22 Montelukast Sodium (MONTELUKAST SODIUM) 10 Mg Tab, 1 TAB PO DAILY for 100 Days, #100 08/03/22 Atorvastatin Calcium (ATORVASTATIN CALCIUM) 40 Mg Tab, 1 TAB PO DAILY for 90 Days, #90 06/15/18 Amlodipine Besylate (Amlodipine Besylate) 10 Mg Tab, 1 TAB PO DAILY, #30 TAB 5 Refills 06/15/18 Levothyroxine Sodium (Levothyroxine Sodium) 50 Mcg Tab, 75 MCG PO QAM for 30 Days, #30 01/25/17 Venlafaxine Hydrochloride (Venlafaxine Hcl) 75 Mg Tab, 200 MG PO DAILY, TAB 01/25/17 Current Medications Current Medications Medications (Trade) Dose Ordered Sig/Ginger Route PRN Reason Start Time Stop Time Status Last Admin Micafungin Sodium 100 mg/Sodium Chloride 100 ml @ 100 mls/hr DAILY IV 07/14/24 10:00 07/14/24 10:12 Labetalol HCl (Labetalol HCl) 10 mg Q2HPRN PRN IV SBP>150 07/14/24 08:45 Nystatin (Mycostatin (Mouth-Throat)) 5 ml QID MT 07/14/24 12:00 07/14/24 18:08 Review of Systems Unobtainable Vital Signs Vital Signs Date Time Temp Pulse Resp B/P (MAP) Pulse Ox O2 Delivery O2 Flow Rate FiO2 07/14/24 17:59 147/89 07/14/24 17:16 99.9 89 14 100 211.8 07/14/24 16:04 30 07/14/24 16:00 Mechanical Ventilator+ Physical Exam The patient is well-nourished and well-developed with no distress. The patient is intubated HEENT: Normocephalic, neck supple, no carotid bruits Lungs: Clear to auscultation Cardiovascular: Regular rate and region, S1, S2, no murmurs Abdomen: Soft, nontender, normal bowel sounds MENTAL STATUS: Responsive to stroke painful stimuli CRANIAL NERVES: Pupils are equal, round and reactive.There are corneal reflexes and doll's eyes phenomenon. No signs of facial weakness. There are gagging or coughing reflexes SENSATION: responses to pain stimuli. MOTOR: Normal tone in the upper and lower extremity. Normal muscle bulk. No fasciculations. No spontaneous movement. REFLEXES: Deep tendon reflexes are symmetrical. No pathological reflexes. CEREBELLAR/COORDINATION: Deferred GAIT/STATION: deferred. Labs/Diagnostic Data Labs Test 07/14/24 17:57 07/14/24 09:22 07/14/24 07:31 07/14/24 03:32 Range/Units POC Glucose 87 70-106 mg/dl Vitamin B12 Level 2949 H 211-911 pg/mL Blood Gas Specimen Type Arterial Blood Gas Sample Site Right radial Blood Gas Patient Temperature 37.0 Arterial Blood Date Drawn [id number] Arterial Blood pH 7.431 7.350-7.450 Arterial Blood Partial Pressure CO2 33.1 32.0-45.0 mmHg Arterial Blood Partial Pressure O2 81.7 L 83.0-108.0 mmHg Arterial Blood HCO3 21.5 21.0-28.0 mmol/L Arterial Blood Oxygen Saturation 95.7 94.0-98.0 % Arterial Blood Base Excess -2.1 L -2.0-3.0 mmol/L Arterial Blood Oxyhemoglobin 95.2 94.0-98.0 % Arterial Blood Carboxyhemoglobin 0.3 L 0.5-1.5 % Arterial Blood Methemoglobin 0.2 0.0-1.5 % Farhat Test Modified Blood Gas Total Hemoglobin 11.70 L 12.0-16.0 g/dL Blood Gas Set Respiration Rate 22.0 Blood Gas Modality Vent - ac FiO2 % 30.0 Blood Gas Tidal Volume 400.0 Blood Gas PEEP or CPAP 6.0 White Blood Count 6.2 # 4.4-10.8 10^3/uL Red Blood Count 3.11 L 4.0-5.20 10^6/uL Hemoglobin 9.1 L 12.2-16.2 g/dL Hematocrit 27.1 L 36.0-46.0 % Mean Corpuscular Volume 87.1 80.0-100.0 fL Mean Corpuscular Hemoglobin 29.4 28.0-32.0 pg Mean Corpuscular Hemoglobin Concent 33.8 32.0-36.0 g/dL Red Cell Distribution Width 15.7 H 11.8-14.3 % Platelet Count 128 L 140-450 10^3/uL Mean Platelet Volume 7.7 6.9-10.8 fL Neutrophils (%) (Auto) 74.5 37.0-80.0 % Lymphocytes (%) (Auto) 13.0 10.0-50.0 % Monocytes (%) (Auto) 9.9 0.0-12.0 % Eosinophils (%) (Auto) 2.2 0.0-7.0 % Basophils (%) (Auto) 0.4 0.0-2.0 % Neutrophils # (Auto) 4.6 1.6-8.6 10 ^3/uL Lymphocytes # (Auto) 0.8 0.4-5.4 10 ^3/uL Monocytes # (Auto) 0.6 0-1.3 10 ^3/uL Eosinophils # (Auto) 0.1 0-0.8 10 ^3/uL Basophils # (Auto) 0 0-0.2 10 ^3/uL Nucleated Red Blood Cells 0.1 % Sodium Level 141 # 136-145 mmol/L Potassium Level 3.7 3.5-5.1 mmol/L Chloride Level 108 H 98-107 mmol/L Carbon Dioxide Level 24 20-31 mmol/L Anion Gap 9 5-15 Blood Urea Nitrogen 46 H 9-23 mg/dL Creatinine 2.70 H 0.550-1.02 mg/dL Glomerular Filtration Rate Calc 18 >90 mL/min BUN/Creatinine Ratio 17.0 10.0-20.0 Serum Glucose 88 74-106 mg/dL Calcium Level 9.5 8.7-10.4 mg/dL Thyroid Stimulating Hormone (TSH) 2.19 0.55-4.78 uIU/mL Test 07/13/24 03:11 07/13/24 02:30 07/12/24 03:30 07/10/24 19:38 Range/Units Phosphorus Level 4.2 2.4-5.1 mg/dL Magnesium Level 2.2 1.6-2.6 mg/dL Total Bilirubin 0.3 0.2-1.0 mg/dL Aspartate Amino Transferase (AST) 32 13-40 U/L Alanine Aminotransferase (ALT) 14 7-40 U/L Alkaline Phosphatase 65 46-116 U/L Total Protein 5.9 5.7-8.2 g/dL Albumin 3.7 3.2-4.8 g/dL Triglycerides Level 61 < 150 mg/dL Stool Occult Blood Negative Negative Stool Occult Blood Sample #3 Negative Iron Level 18 L 50-170 ug/dL Total Iron Binding Capacity 183 L 250-425 ug/dL Percent Iron Saturation 9.8 L 15-50 % Ferritin 269.3 10-291 ng/mL Troponin I High Sensitivity 29 </=34 ng/L Test 07/06/24 19:30 Range/Units Urine Color Colorless Yellow Urine Clarity Clear Clear Urine pH 5.0 5.0-9.0 Urine Specific Rudolph 1.006 1.001-1.035 Urine Protein Negative Negative Urine Ketones Negative Negative Urine Blood Negative Negative /uL Urine Nitrite Negative Negative Urine Bilirubin Negative Negative Urine Urobilinogen Normal Negative mg/dL Urine Leukocyte Esterase Negative Negative /uL Urine RBC <1 0 - 4 /hpf Urine Microscopic WBC 2 0-5 /HPF Urine Squamous Epithelial Cells Few <5 /hpf Urine Bacteria None seen None Seen /hpf Urine Glucose Normal Normal mg/dL Microbiology Date/Time Source Procedure Growth Status 07/11/24 12:00 Bronchial Washings Gram Stain - Final Resulted 07/11/24 12:00 Respiratory Culture - Preliminary Presumptive Zuleyka albicans Resulted 07/09/24 15:25 Trachea Gram Stain - Final Complete 07/09/24 15:25 Trachea Respiratory Culture - Final Complete Assessment Altered mental status/Coma Hypoxic encephalopathy Metabolic encephalopathy Toxic encephalopathy Acute respiratory failure Pneumonia Sepsis/septic shock Acute kidney failure Plan/Recommendation Monitoring Supportive treatment Follow-up labs EEG Stabilize vitals Respiratory support/vent management Oxygen IV antibiotics Pulmonology on case Cardiology on case GI on case Nephrology on case Surgery on case More recommendation per clinical course Prognosis: Guarded Critical care time spent is 45 minutes This medical document was created using an electronic medical record system with [employer] dictation system. Although this document has been carefully reviewed, there may still be some phonetic and typographical errors. These areas are purely typographical due to imperfections of the software programs, and do not reflect any compromise in the patient's medical care. Plan discussed with: Other GISELA WISE MD Jul 14, 2024 18:33
--- NOTE | 2024-07-14 20:46 | DVHPN2 ---
Progress Note - Dictate Date Seen: Jul 14, 2024 Medical Necessity Reason Pt with a Central, PICC or Fol: Yes The following are medically ne: Central Line, South Catheter Reason for south catheter: Strict I&O Subjective Patient seen and examined at bedside. Intubated on mechanical ventilator. Overnight events reviewed. vital signs Vital Sign Date Time Temp Pulse Resp B/P (MAP) Pulse Ox O2 Delivery O2 Flow Rate FiO2 07/14/24 20:15 99.0 67 26 100/66 (77) 100 210.2 07/14/24 20:14 30 07/14/24 18:00 Mechanical Ventilator+ Total Intake and Output 07/13/24 07/13/24 07/14/24 15:00 23:00 07:00 Intake Total 783.815 ml 1270.398 ml 457.680 ml Output Total 2000 ml 1125 ml Balance 783.815 ml -729.602 ml -667.320 ml medications Current Medications Medications Dose Ordered Sig/Ginger Route Start Time Stop Time Status Last Admin Dose Admin Atorvastatin Calcium 40 mg HS PO 07/06/24 22:00 07/13/24 21:43 40 MG Gabapentin 400 mg BID PO 07/06/24 22:00 Hold Levothyroxine Sodium 75 mcg QAM@0600 PO 07/07/24 06:00 07/14/24 05:41 75 MCG Montelukast Sodium 10 mg HS PO 07/06/24 22:00 07/13/24 21:43 10 MG Ondansetron HCl 4 mg Q4HP PRN IV 07/06/24 19:00 07/08/24 19:53 4 MG Acetaminophen 650 mg Q6HP PRN PO 07/06/24 19:00 07/14/24 13:01 650 MG Morphine Sulfate 4 mg Q4HPRN PRN IV 07/07/24 12:15 07/08/24 10:11 4 MG Pantoprazole Sodium 40 mg DAILY IV 07/09/24 10:00 07/14/24 10:12 40 MG Docusate Sodium 100 mg BIDPRN PRN PO 07/08/24 12:45 07/09/24 10:25 100 MG Doxycycline Hyclate 100 ml @ 50 mls/hr Q12H IV 07/09/24 15:00 07/14/24 15:02 50 MLS/HR Piperacillin Sod/ Tazobactam Sod 100 ml @ 25 mls/hr Q12H IV 07/09/24 16:00 07/14/24 17:58 25 MLS/HR Hydralazine HCl 10 mg Q6HP PRN IV 07/09/24 18:00 07/14/24 06:52 10 MG Midazolam HCl 50 ml @ 1 mls/hr Q24H IV 07/09/24 21:15 07/13/24 03:52 6 MLS/HR Fentanyl Citrate 250 ml @ 2.5 mls/hr Q24H IV 07/09/24 21:15 07/12/24 05:00 12.5 MLS/HR Carbamazepine 200 mg BID PO 07/09/24 22:00 07/14/24 10:14 200 MG Epoetin Julito-epbx 4,000 unit TUTHSA SC 07/11/24 11:15 07/14/24 10:13 4,000 UNIT Norepinephrine Bitartrate 32 mg/ Sodium Chloride 250 ml @ 0.938 mls/ hr Q24H IV 07/11/24 15:30 07/14/24 20:02 0.938 MLS/HR Diagnostic Test (Pha) 1 strip Q6HR 07/13/24 00:00 07/14/24 18:00 1 STRIP Insulin Human Regular FOLLOW SLIDING SCALE Q6HR SC 07/13/24 00:00 Dextrose 50 ml UD IV 07/13/24 00:00 Enoxaparin Sodium 40 mg DAILY SC 07/13/24 10:00 UNV Enoxaparin Sodium 30 mg DAILY SC 07/13/24 10:00 07/14/24 10:13 30 MG Micafungin Sodium 100 mg/Sodium Chloride 100 ml @ 100 mls/hr DAILY IV 07/14/24 10:00 07/14/24 10:12 100 MLS/HR Enteral Nutritional Formula 1,000 ml 30ML/HR GT 07/13/24 10:15 07/13/24 17:48 1,000 ML Dexmedetomidine HCl 400 mcg/ Dextrose 100 ml @ 4.935 mls/ hr [id number] IV 07/13/24 10:15 07/14/24 17:59 4.935 MLS/HR Labetalol HCl 10 mg Q2HPRN PRN IV 07/14/24 08:45 Nystatin 5 ml QID MT 07/14/24 12:00 07/14/24 18:08 5 ML objective Gen.: Patient lying in bed in medical ICU. Intubated on mechanical ventilator. Head: Normocephalic, atraumatic. Eyes: PERRLA. Ears: Normal external anatomy. Throat: Endotracheal tube and orogastric tube in place. Neck: Supple, trachea midline. Chest: Transmitted breath sounds bilaterally. Decreased air entry bilaterally. No wheezing. Bibasilar crackles. Cardiovascular: Positive S1, positive S2. Regular rate and rhythm. Abdomen: Positive bowel sounds in all 4 quadrants. Soft, nontender, nondistended. : South in place. Normal external genitalia. Rectal: Deferred. Skin: Warm, dry. Intact. Extremities: 2+ radial pulses bilaterally. No lower extremity edema. Neuro: Off sedation laboratory and microbiology Laboratory Tests 07/14/24 03:32 Test 07/14/24 03:32 Range/Units Serum Glucose 88 74-106 mg/dL Assessment/Plan Impression: Acute hypoxic respiratory failure On mechanical ventilator Aspiration pneumonia and aspiration pneumonitis Shock Chronic kidney disease Hypokalemia Chronic anemia Elevated troponin. Constipation Events: Head CT showed no acute intracranial abnormality ABG reviewed, compensated CXR reviewed; Left basilar atelectasis or pneumonia. Pulmonary venous congestion. Devices in place. Off sedation On CPAP with PS 8, PEEP of 6, FiO2 30% Tolerating CPAP Place on full support overnight. Awaiting for mentation to improve. Increased oral and ET tube secretions. Plan for bronchoscopy to evaluate for suspected mucous plugs. Off pressors, hemodynamically stable. Continue antibiotics Continue tube feeds for nutritional support Monitor hemoglobin Iron supplementation S/p therapeutic bronchoscopy today, cleared secretions Patient tolerated the procedure well. Please see separate procedure note for details. Labs and imaging reviewed. Rest of plan as noted below Plan: s/p intubation on mechanical ventilator. On AC mode; RR 22, VT 400, PEEP 6, FiO2 30% Titrate FIO2 to keep O2 saturation above 90%. VAP bundle. Daily ABG and CXR while intubated Off sedation Continue antibiotics. F/u cultures. Pressors if necessary for hemodynamic support Titrate to keep mean arterial pressure greater than 65 mmHg. Monitor renal function Monitor electrolytes. Supplement as necessary. Monitor ins and outs. S/p bronchoscopy with RML BAL on 07/11/24 - see separate procedure note for details Follow up BAL cultures - presumptive Zuleyka albicans. GI prophylaxis. DVT prophylaxis. Prognosis: Poor given patient's multiple co-morbidities. Condition: Critical Rest of plan per hospitalist and other consultants. A total of 35 minutes of critical care time was spent reviewing the patient record, examining the patient, making a diagnostic and therapeutic plan, discussing this plan with the medical personnel, following up on diagnostic studies and following the patient for clinical stability excluding any and all procedures. At least 50% of this time was spent in direct, [id number] contact. Thank you Dr. Bhatia, for allowing me to participate in this patient's care. Further recommendations will depend on the patient's clinical course. Please do not hesitate to contact me if you have any questions or concerns. This medical document was created using an electronic medical record system with [employer] dictation system. Although these documentations are being carefully reviewed, there may still be some phonetic and typographical changes. The errors are purely typographical, due to imperfection on the software program, and do not reflect any compromise in the patient's medical care. Dietary Evaluation Review Comments: Continue current plan of care Expected Outcomes/Goals: Pt will meet >75% estimated needs Fu 3-5 days Plan discussed with: Other (KATHE Marie) Critical Care Time(min): 35 ABIMBOLA PAYNE MD Jul 14, 2024 20:46
--- NOTE | 2024-07-14 21:02 | DVHPN2 ---
Progress Note Date Seen: Jul 14, 2024 Medical Necessity Reason Pt with a Central, PICC or Fol: Yes The following are medically ne: Central Line, South Catheter Reason for south catheter: Strict I&O Subjective Review of Systems: Deferred (intubated) Objective vital signs Vital Sign Date Time Temp Pulse Resp B/P (MAP) Pulse Ox O2 Delivery O2 Flow Rate FiO2 07/14/24 20:15 99.0 67 26 100/66 (77) 100 210.2 07/14/24 20:14 30 07/14/24 18:00 Mechanical Ventilator+ Total Intake and Output 07/13/24 07/13/24 07/14/24 15:00 23:00 07:00 Intake Total 783.815 ml 1270.398 ml 457.680 ml Output Total 2000 ml 1125 ml Balance 783.815 ml -729.602 ml -667.320 ml medications Current Medications Medications Dose Ordered Sig/Ginger Route Start Time Stop Time Status Last Admin Dose Admin Atorvastatin Calcium 40 mg HS PO 07/06/24 22:00 07/13/24 21:43 40 MG Gabapentin 400 mg BID PO 07/06/24 22:00 Hold Levothyroxine Sodium 75 mcg QAM@0600 PO 07/07/24 06:00 07/14/24 05:41 75 MCG Montelukast Sodium 10 mg HS PO 07/06/24 22:00 07/13/24 21:43 10 MG Ondansetron HCl 4 mg Q4HP PRN IV 07/06/24 19:00 07/08/24 19:53 4 MG Acetaminophen 650 mg Q6HP PRN PO 07/06/24 19:00 07/14/24 13:01 650 MG Morphine Sulfate 4 mg Q4HPRN PRN IV 07/07/24 12:15 07/08/24 10:11 4 MG Pantoprazole Sodium 40 mg DAILY IV 07/09/24 10:00 07/14/24 10:12 40 MG Docusate Sodium 100 mg BIDPRN PRN PO 07/08/24 12:45 07/09/24 10:25 100 MG Doxycycline Hyclate 100 ml @ 50 mls/hr Q12H IV 07/09/24 15:00 07/14/24 15:02 50 MLS/HR Piperacillin Sod/ Tazobactam Sod 100 ml @ 25 mls/hr Q12H IV 07/09/24 16:00 07/14/24 17:58 25 MLS/HR Hydralazine HCl 10 mg Q6HP PRN IV 07/09/24 18:00 07/14/24 06:52 10 MG Midazolam HCl 50 ml @ 1 mls/hr Q24H IV 07/09/24 21:15 07/13/24 03:52 6 MLS/HR Fentanyl Citrate 250 ml @ 2.5 mls/hr Q24H IV 07/09/24 21:15 07/12/24 05:00 12.5 MLS/HR Carbamazepine 200 mg BID PO 07/09/24 22:00 07/14/24 10:14 200 MG Epoetin Julito-epbx 4,000 unit TUTHSA SC 07/11/24 11:15 07/14/24 10:13 4,000 UNIT Norepinephrine Bitartrate 32 mg/ Sodium Chloride 250 ml @ 0.938 mls/ hr Q24H IV 07/11/24 15:30 07/14/24 20:02 0.938 MLS/HR Diagnostic Test (Pha) 1 strip Q6HR 07/13/24 00:00 07/14/24 18:00 1 STRIP Insulin Human Regular FOLLOW SLIDING SCALE Q6HR SC 07/13/24 00:00 Dextrose 50 ml UD IV 07/13/24 00:00 Enoxaparin Sodium 40 mg DAILY SC 07/13/24 10:00 UNV Enoxaparin Sodium 30 mg DAILY SC 07/13/24 10:00 07/14/24 10:13 30 MG Micafungin Sodium 100 mg/Sodium Chloride 100 ml @ 100 mls/hr DAILY IV 07/14/24 10:00 07/14/24 10:12 100 MLS/HR Enteral Nutritional Formula 1,000 ml 30ML/HR GT 07/13/24 10:15 07/13/24 17:48 1,000 ML Dexmedetomidine HCl 400 mcg/ Dextrose 100 ml @ 4.935 mls/ hr [id number] IV 07/13/24 10:15 07/14/24 17:59 4.935 MLS/HR Labetalol HCl 10 mg Q2HPRN PRN IV 07/14/24 08:45 Nystatin 5 ml QID MT 07/14/24 12:00 07/14/24 18:08 5 ML laboratory and microbiology Laboratory Tests 07/14/24 03:32 Test 07/14/24 03:32 Range/Units Serum Glucose 88 74-106 mg/dL Microbiology Date/Time Source Procedure Growth Status 07/11/24 12:00 Bronchial Washings Gram Stain - Final Resulted 07/11/24 12:00 Respiratory Culture - Preliminary Presumptive Zuleyka albicans Resulted 07/09/24 15:25 Trachea Gram Stain - Final Complete 07/09/24 15:25 Trachea Respiratory Culture - Final Complete Problem List/Assessment/Plan Problem List/Assessment/Plan Acute kidney injury hemodynamic CKd 4 ; with solitary kidney s/p nephrectomy abdominal pain, Diverticulosis Cholelithiasis without cholecystitis constipation anemia Acute respiratory failure with multifocal pneumonia Septic shock Constipation with fecal impaction status post enema recs stable renal function CT shows no renal obstruction epogen 3x a week and iron IV on neosyn -Vasopressor Plan discussed with: Other Dietary Evaluation Review Comments: Continue current plan of care Expected Outcomes/Goals: Pt will meet >75% estimated needs Fu 3-5 days KYLIE ROMERO MD Jul 14, 2024 21:02
--- NOTE | 2024-07-14 21:04 | DVHPN2 ---
Progress Note - Dictate Date Seen: Jul 14, 2024 Medical Necessity Reason Pt with a Central, PICC or Fol: Yes The following are medically ne: Central Line, South Catheter Reason for south catheter: Strict I&O Subjective Patient seen in ICU 110 Intubated off sedation;not arousable Patient has multi focal pneumonia on IV antibiotics Patient is being treated with lactulose and MiraLax for her constipation; p atient is now having daily bowel movements Patient is currently on tube feedings which she is tolerating vital signs Vital Sign Date Time Temp Pulse Resp B/P (MAP) Pulse Ox O2 Delivery O2 Flow Rate FiO2 07/14/24 20:15 99.0 67 26 100/66 (77) 100 210.2 07/14/24 20:14 30 07/14/24 18:00 Mechanical Ventilator+ Total Intake and Output 07/13/24 07/13/24 07/14/24 15:00 23:00 07:00 Intake Total 783.815 ml 1270.398 ml 457.680 ml Output Total 2000 ml 1125 ml Balance 783.815 ml -729.602 ml -667.320 ml medications Current Medications Medications Dose Ordered Sig/Ginger Route Start Time Stop Time Status Last Admin Dose Admin Atorvastatin Calcium 40 mg HS PO 07/06/24 22:00 07/13/24 21:43 40 MG Gabapentin 400 mg BID PO 07/06/24 22:00 Hold Levothyroxine Sodium 75 mcg QAM@0600 PO 07/07/24 06:00 07/14/24 05:41 75 MCG Montelukast Sodium 10 mg HS PO 07/06/24 22:00 07/13/24 21:43 10 MG Ondansetron HCl 4 mg Q4HP PRN IV 07/06/24 19:00 07/08/24 19:53 4 MG Acetaminophen 650 mg Q6HP PRN PO 07/06/24 19:00 07/14/24 13:01 650 MG Morphine Sulfate 4 mg Q4HPRN PRN IV 07/07/24 12:15 07/08/24 10:11 4 MG Pantoprazole Sodium 40 mg DAILY IV 07/09/24 10:00 07/14/24 10:12 40 MG Docusate Sodium 100 mg BIDPRN PRN PO 07/08/24 12:45 07/09/24 10:25 100 MG Doxycycline Hyclate 100 ml @ 50 mls/hr Q12H IV 07/09/24 15:00 07/14/24 15:02 50 MLS/HR Piperacillin Sod/ Tazobactam Sod 100 ml @ 25 mls/hr Q12H IV 07/09/24 16:00 07/14/24 17:58 25 MLS/HR Hydralazine HCl 10 mg Q6HP PRN IV 07/09/24 18:00 07/14/24 06:52 10 MG Midazolam HCl 50 ml @ 1 mls/hr Q24H IV 07/09/24 21:15 07/13/24 03:52 6 MLS/HR Fentanyl Citrate 250 ml @ 2.5 mls/hr Q24H IV 07/09/24 21:15 07/12/24 05:00 12.5 MLS/HR Carbamazepine 200 mg BID PO 07/09/24 22:00 07/14/24 10:14 200 MG Epoetin Julito-epbx 4,000 unit TUTHSA SC 07/11/24 11:15 07/14/24 10:13 4,000 UNIT Norepinephrine Bitartrate 32 mg/ Sodium Chloride 250 ml @ 0.938 mls/ hr Q24H IV 07/11/24 15:30 07/14/24 20:02 0.938 MLS/HR Diagnostic Test (Pha) 1 strip Q6HR 07/13/24 00:00 07/14/24 18:00 1 STRIP Insulin Human Regular FOLLOW SLIDING SCALE Q6HR SC 07/13/24 00:00 Dextrose 50 ml UD IV 07/13/24 00:00 Enoxaparin Sodium 40 mg DAILY SC 07/13/24 10:00 UNV Enoxaparin Sodium 30 mg DAILY SC 07/13/24 10:00 07/14/24 10:13 30 MG Micafungin Sodium 100 mg/Sodium Chloride 100 ml @ 100 mls/hr DAILY IV 07/14/24 10:00 07/14/24 10:12 100 MLS/HR Enteral Nutritional Formula 1,000 ml 30ML/HR GT 07/13/24 10:15 07/13/24 17:48 1,000 ML Dexmedetomidine HCl 400 mcg/ Dextrose 100 ml @ 4.935 mls/ hr [id number] IV 07/13/24 10:15 4/1/25 17:59 4.935 MLS/HR Labetalol HCl 10 mg Q2HPRN PRN IV 07/14/24 08:45 Nystatin 5 ml QID MT 07/14/24 12:00 07/14/24 18:08 5 ML objective GEN: intubated sedated HEENT: NC/AT; MMM. CV: RRR, no m/r/g. LUNGS: Decreased breath sound ABD: Hypoactive bowel sounds, no rigidity no distention, soft EXT: skin Warm, well perfused. no rashes. No clubbing, cyanosis, or edema. laboratory and microbiology Laboratory Tests 07/14/24 03:32 Test 07/14/24 03:32 Range/Units Serum Glucose 88 74-106 mg/dL Problems(with codes): (1) N&V (nausea and vomiting) (2) Cholelithiasis (3) Constipation (4) Abdominal pain (5) Osteoarthritis (6) Lumbar radiculopathy (7) Anemia (8) Sepsis due to urinary tract infection Prognosis Plan Continue tube feedings Supportive care Patient is off sedation Neuro evaluation ongoing Dietary Evaluation Review Comments: Continue current plan of care Expected Outcomes/Goals: Pt will meet >75% estimated needs Fu 3-5 days Plan discussed with: Other (Jorge bansal and ICU Nurse) ASHLEIGH VILLANUEVA MD Jul 14, 2024 21:04
--- NOTE | 2024-07-14 21:49 | DVHPN2 ---
Progress Note - Dictate Date Seen: Jul 14, 2024 Medical Necessity Reason Pt with a Central, PICC or Fol: Yes The following are medically ne: Central Line, South Catheter Reason for south catheter: Strict I&O Subjective Patient was seen and evaluated in follow up in the ICU. Patient is intubated on ventilator. 30% FiO2. Patient is off sedation. Patient receiving tube feedings. Patient is being treated with lactulose and MiraLax for her constipation; patient is now having daily bowel movements. Patient underwent bedside bronchoscopy with Dr. Knowles. vital signs Vital Sign Date Time Temp Pulse Resp B/P (MAP) Pulse Ox O2 Delivery O2 Flow Rate FiO2 07/14/24 20:15 99.0 67 26 100/66 (77) 100 210.2 07/14/24 20:14 30 07/14/24 18:00 Mechanical Ventilator+ Total Intake and Output 07/13/24 07/13/24 07/14/24 15:00 23:00 07:00 Intake Total 783.815 ml 1270.398 ml 457.680 ml Output Total 2000 ml 1125 ml Balance 783.815 ml -729.602 ml -667.320 ml medications Current Medications Medications Dose Ordered Sig/Ginger Route Start Time Stop Time Status Last Admin Dose Admin Atorvastatin Calcium 40 mg HS PO 07/06/24 22:00 07/13/24 21:43 40 MG Gabapentin 400 mg BID PO 07/06/24 22:00 Hold Levothyroxine Sodium 75 mcg QAM@0600 PO 07/07/24 06:00 07/14/24 05:41 75 MCG Montelukast Sodium 10 mg HS PO 07/06/24 22:00 07/13/24 21:43 10 MG Ondansetron HCl 4 mg Q4HP PRN IV 07/06/24 19:00 07/08/24 19:53 4 MG Acetaminophen 650 mg Q6HP PRN PO 07/06/24 19:00 07/14/24 13:01 650 MG Morphine Sulfate 4 mg Q4HPRN PRN IV 07/07/24 12:15 07/08/24 10:11 4 MG Pantoprazole Sodium 40 mg DAILY IV 07/09/24 10:00 07/14/24 10:12 40 MG Docusate Sodium 100 mg BIDPRN PRN PO 07/08/24 12:45 07/09/24 10:25 100 MG Doxycycline Hyclate 100 ml @ 50 mls/hr Q12H IV 07/09/24 15:00 07/14/24 15:02 50 MLS/HR Piperacillin Sod/ Tazobactam Sod 100 ml @ 25 mls/hr Q12H IV 07/09/24 16:00 07/14/24 17:58 25 MLS/HR Hydralazine HCl 10 mg Q6HP PRN IV 07/09/24 18:00 07/14/24 06:52 10 MG Midazolam HCl 50 ml @ 1 mls/hr Q24H IV 07/09/24 21:15 07/13/24 03:52 6 MLS/HR Fentanyl Citrate 250 ml @ 2.5 mls/hr Q24H IV 07/09/24 21:15 07/12/24 05:00 12.5 MLS/HR Carbamazepine 200 mg BID PO 07/09/24 22:00 07/14/24 10:14 200 MG Epoetin Julito-epbx 4,000 unit TUTHSA SC 07/11/24 11:15 07/14/24 10:13 4,000 UNIT Norepinephrine Bitartrate 32 mg/ Sodium Chloride 250 ml @ 0.938 mls/ hr Q24H IV 07/11/24 15:30 07/14/24 20:02 0.938 MLS/HR Diagnostic Test (Pha) 1 strip Q6HR 07/13/24 00:00 07/14/24 18:00 1 STRIP Insulin Human Regular FOLLOW SLIDING SCALE Q6HR SC 07/13/24 00:00 Dextrose 50 ml UD IV 07/13/24 00:00 Enoxaparin Sodium 40 mg DAILY SC 07/13/24 10:00 UNV Enoxaparin Sodium 30 mg DAILY SC 07/13/24 10:00 07/14/24 10:13 30 MG Micafungin Sodium 100 mg/Sodium Chloride 100 ml @ 100 mls/hr DAILY IV 07/14/24 10:00 07/14/24 10:12 100 MLS/HR Enteral Nutritional Formula 1,000 ml 30ML/HR GT 07/13/24 10:15 07/13/24 17:48 1,000 ML Dexmedetomidine HCl 400 mcg/ Dextrose 100 ml @ 4.935 mls/ hr [id number] IV 07/13/24 10:15 07/14/24 17:59 4.935 MLS/HR Labetalol HCl 10 mg Q2HPRN PRN IV 07/14/24 08:45 Nystatin 5 ml QID MT 07/14/24 12:00 07/14/24 18:08 5 ML objective GENERAL: Intubated on ventilator. LUNGS: Decreased breath sounds. CARDIOVASCULAR: Heart sounds are good. ABDOMEN: Soft. laboratory and microbiology Laboratory Tests 07/14/24 03:32 Test 07/14/24 03:32 Range/Units Serum Glucose 88 74-106 mg/dL Problem List Acute hypoxic respiratory failure due to aspiration pneumonia/aspiration pneumonitis. Aspiration pneumonia. Intractable vomiting. Shock, septic possible. Symptomatic cholelithiasis possible. Chronic kidney disease. Hypokalemia. Chronic anemia. History of left kidney mass status post nephrectomy 2021 [facility]. Hypertension. Diverticulosis. Fatty liver. Persisting constipation. Elevated troponin. Episode of SVT. Assessment/Plan Continued all current supportive medical care. Lipitor. IV antibiotics as ordered. DVT and GI prophylactics. IV Hydralazine for SBP >170. Morphine for pain management. Vasopressors for hemodynamic support. Additional plan as per the hospital course. Critical care time of 45 minutes provided to include time spent evaluation of patient at bedside, when appropriate patient/family education for diagnosis, treatment plan, review of pertinent medical information and discussion of care with specialty providers and PCP. Mechanical ventilator parameters, treatment and adjustments have personally been reviewed by me and treatment plan by materials and corrosion engineer has also been reviewed. Dietary Evaluation Review Comments: Continue current plan of care Expected Outcomes/Goals: Pt will meet >75% estimated needs Fu 3-5 days Plan discussed with: Other MARÍA MIGUEL MD Jul 14, 2024 21:49
[2024-07-15] VITALS (104 sets, daily range): BP systolic 89–163; BP diastolic 26–97; PULSE 58–97; RESP 12–35; TEMP 97.7–99.9; O2SAT 91–100
[2024-07-15 04:26] LABS: Basophils # (auto) 0 10 ^3/uL (0-0.2); Basophils % (auto) 0.9 % (0.0-2.0); Eosinophils # (auto) 0.1 10 ^3/uL (0-0.8); Eosinophils % (auto) 1.7 % (0.0-7.0); Hematocrit 25.7 % (36.0-46.0); Hemoglobin 8.8 g/dL (12.2-16.2); Lymphocytes % (auto) 22.3 % (10.0-50.0); Mean Corpuscular Hemoglobin 29.7 pg (28.0-32.0); Mean Corpuscular Hgb Conc. 34.2 g/dL (32.0-36.0); Mean Corpuscular Volume 86.8 fL (80.0-100.0); Monocytes # (auto) 0.6 10 ^3/uL (0-1.3); Monocytes % (auto) 12.7 % (0.0-12.0); Neutrophils # (auto) 2.8 10 ^3/uL (1.6-8.6); Neutrophils % (auto) 62.4 % (37.0-80.0); Nucleated Red Blood Cells % 0.2 %; Platelet Count (auto) 143 10^3/uL (140-450); Red Blood Cells 2.96 10^6/uL (4.0-5.20); Red Cell Distribution Width 15.7 % (11.8-14.3); White Blood Cell 4.5 10^3/uL (4.4-10.8)
[2024-07-15 04:44] LABS: Alanine Aminotransferase 15 U/L (7-40); Albumin 3.7 g/dL (3.2-4.8); Alkaline Phosphatase 71 U/L (46-116); Anion Gap 12 (5-15); Aspartate Aminotransferase 35 U/L (13-40); Bilirubin, Total 0.5 mg/dL (0.2-1.0); Carbon Dioxide 22 mmol/L (20-31); Chloride 106 mmol/L (98-107); Glucose 88 mg/dL (74-106); Potassium 3.7 mmol/L (3.5-5.1); Sodium 140 mmol/L (136-145)
[2024-07-15 04:47] LABS: Blood Urea Nitrogen 54 mg/dL (9-23)
--- NOTE | 2024-07-15 05:14 | DVH ---
EXAM: XR Chest, 1 View CLINICAL INDICATION: VENTILATED TECHNIQUE: Frontal view of the chest. COMPARISON: XY CHEST PORTABLE on DOS: 07/14/24, XY CHEST PORTABLE on DOS: 07/13/24, XY CHEST PORTABLE on DOS: 07/12/24, XY CHEST XRAY 1 VIEW on DOS: 07/11/24, XY CHEST XRAY 1 VIEW on DOS: 07/10/24 FINDINGS: LUNGS AND PLEURAL SPACES: Left basilar atelectasis or pneumonia. Pulmonary venous congestion. No pneumothorax. HEART: Unremarkable. No cardiomegaly. MEDIASTINUM: Unremarkable. Normal mediastinal contour. BONES/JOINTS: Unremarkable. No acute fracture. TUBES, LINES AND DEVICES: Stable tubes and lines. OTHER FINDINGS: . .. IMPRESSION: 1. Left basilar atelectasis or pneumonia. 2. Pulmonary venous congestion.
[2024-07-15 06:40] LABS: Base Excess -3.1 mmol/L (-2.0-3.0)
--- NOTE | 2024-07-15 07:27 | DVHPN2 ---
Subjective Unable to assess. Still encephalopathic Reviewed: Care Plan, H&P, Labs, Medications, Previous Orders, Radiology Changes from previous H/P or p: No Changes General: Per HPI Objective Vitals Vital Signs Date Time Temp Pulse Resp B/P (MAP) Pulse Ox O2 Delivery O2 Flow Rate FiO2 07/15/24 07:19 84 31 142/74 (96) 100 30 07/15/24 07:00 99.9 211.8 07/15/24 06:00 Mechanical Ventilator+ Intake/Output Intake and Output 07/15/24 07:00 Intake Total 967.296 ml Output Total 1650 ml Balance -682.704 ml Intake Oral 260 ml IV Total 564.296 ml Tube Feeding 143 ml Output Urine Total 1650 ml General Appearance: mild distress, Other (Chemically sedated) HEENT: Atraumatic, PERRLA Lungs: Clear to auscultation, Normal air movement Cardiovascular: Normal S1, Normal S2 Abdomen: Normal bowel sounds, Soft, No tenderness, No hepatospenomegaly Genitourinary: No Apparent Abnormalities (Gastelum catheter) Neuro: Other (Unable to assess) Skin: Dry, Intact Psych/Mental Status: Other (Unable to assess) Medications Current Medications Medications Dose Ordered Sig/Ginger Route Start Time Stop Time Status Last Admin Dose Admin Atorvastatin Calcium 40 mg HS PO 07/06/24 22:00 07/14/24 21:45 40 MG Gabapentin 400 mg BID PO 07/06/24 22:00 Hold Levothyroxine Sodium 75 mcg QAM@0600 PO 07/07/24 06:00 07/15/24 05:39 75 MCG Montelukast Sodium 10 mg HS PO 07/06/24 22:00 07/14/24 21:45 10 MG Ondansetron HCl 4 mg Q4HP PRN IV 07/06/24 19:00 07/08/24 19:53 4 MG Acetaminophen 650 mg Q6HP PRN PO 07/06/24 19:00 07/14/24 13:01 650 MG Pantoprazole Sodium 40 mg DAILY IV 07/09/24 10:00 07/14/24 10:12 40 MG Docusate Sodium 100 mg BIDPRN PRN PO 07/08/24 12:45 07/09/24 10:25 100 MG Doxycycline Hyclate 100 ml @ 50 mls/hr Q12H IV 07/09/24 15:00 07/15/24 04:11 50 MLS/HR Piperacillin Sod/ Tazobactam Sod 100 ml @ 25 mls/hr Q12H IV 07/09/24 16:00 07/15/24 04:22 25 MLS/HR Hydralazine HCl 10 mg Q6HP PRN IV 07/09/24 18:00 07/14/24 06:52 10 MG Midazolam HCl 50 ml @ 1 mls/hr Q24H IV 07/09/24 21:15 07/13/24 03:52 6 MLS/HR Fentanyl Citrate 250 ml @ 2.5 mls/hr Q24H IV 07/09/24 21:15 07/12/24 05:00 12.5 MLS/HR Carbamazepine 200 mg BID PO 07/09/24 22:00 07/14/24 21:46 200 MG Epoetin Julito-epbx 4,000 unit TUTHSA SC 07/11/24 11:15 07/14/24 10:13 4,000 UNIT Norepinephrine Bitartrate 32 mg/ Sodium Chloride 250 ml @ 0.938 mls/ hr Q24H IV 07/11/24 15:30 07/14/24 20:02 0.938 MLS/HR Diagnostic Test (Pha) 1 strip Q6HR 07/13/24 00:00 07/15/24 05:38 1 STRIP Insulin Human Regular FOLLOW SLIDING SCALE Q6HR SC 07/13/24 00:00 Dextrose 50 ml UD IV 07/13/24 00:00 Enoxaparin Sodium 40 mg DAILY SC 07/13/24 10:00 UNV Enoxaparin Sodium 30 mg DAILY SC 07/13/24 10:00 07/14/24 10:13 30 MG Micafungin Sodium 100 mg/Sodium Chloride 100 ml @ 100 mls/hr DAILY IV 07/14/24 10:00 07/14/24 10:12 100 MLS/HR Dexmedetomidine HCl 400 mcg/ Dextrose 100 ml @ 4.935 mls/ hr [id number] IV 07/13/24 10:15 07/15/24 06:44 4.935 MLS/HR Labetalol HCl 10 mg Q2HPRN PRN IV 07/14/24 08:45 Nystatin 5 ml QID MT 07/14/24 12:00 07/15/24 05:39 5 ML Enteral Nutritional Formula 1,000 ml 50ML/HR GT 07/15/24 07:15 UNV Amlodipine Besylate 10 mg DAILY GT 07/15/24 10:00 UNV Laboratory Results Laboratory Tests 07/15/24 03:35 Chemistry Test 07/15/24 03:35 Albumin 3.7 g/dL (3.2-4.8) Calcium Level 10.0 mg/dL (8.7-10.4) Total Protein 6.0 g/dL (5.7-8.2) LFT Test 07/15/24 03:35 Alanine Aminotransferase (ALT) 15 U/L (7-40) Alkaline Phosphatase 71 U/L (46-116) Aspartate Amino Transferase (AST) 35 U/L (13-40) Total Bilirubin 0.5 mg/dL (0.2-1.0) Urinalysis Test 07/06/24 19:30 Urine Color Colorless (Yellow) Urine Clarity Clear (Clear) Urine pH 5.0 (5.0-9.0) Urine Specific Redig 1.006 (1.001-1.035) Urine Protein Negative (Negative) Urine Ketones Negative (Negative) Urine Blood Negative /uL (Negative) Urine Nitrite Negative (Negative) Urine Bilirubin Negative (Negative) Urine Urobilinogen Normal mg/dL (Negative) Urine Leukocyte Esterase Negative /uL (Negative) Urine RBC <1 /hpf (0 - 4) Urine Microscopic WBC 2 /HPF (0-5) Urine Squamous Epithelial Cells Few /hpf (<5) Urine Bacteria None seen /hpf (None Seen) Urine Glucose Normal mg/dL (Normal) Blood Gas Results Test 07/14/24 07:31 07/15/24 06:26 Arterial Blood pH 7.431 (7.350-7.450) 7.421 (7.350-7.450) FiO2 % 30.0 30.0 Microbiology Microbiology Date/Time Source Procedure Growth Status 07/11/24 12:00 Bronchial Washings Gram Stain - Final Resulted 07/11/24 12:00 Respiratory Culture - Preliminary Presumptive Zuleyka albicans Resulted 07/09/24 15:25 Trachea Gram Stain - Final Complete 07/09/24 15:25 Trachea Respiratory Culture - Final Complete Labs and/or images reviewed: Labs reviewed by me, Image(s) reviewed by me Assessment/Plan Assessment/Plan Impression: -abdominal pain, questionably secondary to cholelithiasis versus constipation -constipation -cholelithiasis -obesity -acute respiratory failure with mechanical ventilation -multifocal pneumonia, probable aspiration etiology -acute kidney injury, vasomotor nephropathy, underlying CKD stage 4 -hyperchloremic metabolic acidosis -septic shock -anemia of chronic disease Plan: Events: On low dose precedex. No purposeful movement. S/P bronchoscopy. No response to painful stimulus to upper and lower extremities. Hypoglycemia. ? Hypoxic Encephalopathy. Discussed Plan of care with daughter yesterday. -Neuro consult. EEG pending -Start amlodipine -continue doxycycline, Zosyn, and Micafungin -CT head: unremarkable. MRI of the Brain -nystatin swish and swallow -stop lactulose given patient now having diarrhea -Increase Nepro to 50ml/hr -repeat labs, chest x-ray, ABG in a.m. Critical care time spent with patient discussing and formulating plan of care: 40 minutes. This does not include time spent performing procedures. This medical document was created using an electronic medical record system with [employer] dictation system. Although this document has been carefully reviewed, there may still be some phonetic and typographical errors. These areas are purely typographical due to imperfections of the software programs, and do not reflect any compromise in the patient's medical care. Plan discussed with: Patient, Other (RN) My Orders Orders - DIANE FRANKLIN SPECIAL PROGRAMS DIRECTOR Procedure Category Date Status Time Cpap/Sed Vacation Med ORDERS 07/14/24 Transmitted Weaning 08:26 Cpap Trial For Am ORDERS 07/14/24 Transmitted 08:26 Labetalol Hcl PHA 07/14/24 In Process (Labetalol Hcl) 08:45 Vitamin D 25-Hydroxy LAB 07/14/24 In Process D2 + D3 09:[address] 07/14/24 Resulted 09:04 Abg W/ Co-Ox RT 07/15/24 Logged 04:00 Nystatin PHA 07/14/24 In Process (Mouth-Throat) 12:00 * Neurology Consult CONS 07/14/24 Transmitted 16:53 Brain Head Wo Contrast MRI 07/14/24 Logged 16:53 Chest Portable XY 07/15/24 Resulted 04:00 Nutritional PHA 07/15/24 Logged Supplements (Nepro 07:15 Basic Metabolic Panel LAB 07/16/24 Verified 05:00 Basic Metabolic Panel LAB 07/17/24 Verified 05:00 Basic Metabolic Panel LAB 07/18/24 Verified 05:00 Basic Metabolic Panel LAB 07/19/24 Verified 05:00 Basic Metabolic Panel LAB 07/20/24 Verified 05:00 Complete Blood Count LAB 07/16/24 Verified 05:00 Complete Blood Count LAB 07/17/24 Verified 05:00 Complete Blood Count LAB 07/18/24 Verified 05:00 Complete Blood Count LAB 07/19/24 Verified 05:00 Complete Blood Count LAB 07/20/24 Verified 05:00 Chest Portable XY 07/16/24 Logged 05:00 Chest Portable XY 07/17/24 Logged 05:00 Chest Portable XY 07/18/24 Logged 05:00 Chest Portable XY 07/19/24 Logged 05:00 Chest Portable XY 07/20/24 Logged 05:00 Abg W/ Co-Ox RT 07/16/24 Logged 05:00 Abg W/ Co-Ox RT 07/17/24 Logged 05:00 Abg W/ Co-Ox RT 07/18/24 Logged 05:00 Abg W/ Co-Ox RT 07/19/24 Logged 05:00 Abg W/ Co-Ox RT 07/20/24 Logged 05:00 Amlodipine Tablet PHA 07/15/24 Logged (Norvasc Tablet) 10:00 Date of Service: Jul 15, 2024 Billing Provider: DIANE FRANKLIN NP Common Visit Codes: [id number] CARE 30-74 MIN DIANE FRANKLIN NP Jul 15, 2024 07:27
--- NOTE | 2024-07-15 08:54 | DVHPN2 ---
Progress Note - Dictate Date Seen: Jul 15, 2024 Medical Necessity Reason Pt with a Central, PICC or Fol: Yes The following are medically ne: Central Line, South Catheter Reason for south catheter: Strict I&O Subjective Ms. Randolph is a 74 years old female with a history of hypertension, dyslipidemia, congestive heart failure, asthma, solitary kidney, obesity, she came [facility] on 07/06[facility]2024 with a chief company of right flank pain for three days, in the hospital, the patient was found to have constipation. I have seen and examined the patient, I have discussed with her nurse, the case was discussed with Jorge She is intubated, on Precedex because of tachypnea, she was responsive to painful stimuli Precedex 0.3mch/kg/h Sputum culture, 07/11/2024: Principal to Cirilo albicans Urinalysis, 07/06/2024: WBC: 2, urine leukocyte esterase: Negative ABG, 07/09/2024: Acidosis 07/10/2024: Metabolic acidosis, 07/12/2024: Metabolic acidosis, 07/13/2024: Metabolic acidosis WBC/HB/PLT/MCV, 07/14/2024: 6.1/9.1/128/87.1 BUN/CR, 07/06/2024: 32/2.63, 07/09/24: 34/3.44, 07/12/2024: 32/2.81, 07/14/2024: 46/2.7, 07/15/2024: 54/2.7 Liver function tests, 07/09/2024: Unremarkable Vitamin B12, 07/14/2024: 2949 TSH, 07/14/2024: 2.19 Chest x-ray, 07/14/2024: 1. Left basilar atelectasis or pneumonia. 2. Pulmonary venous congestion. CT head, 07/10/2024: Punctate focus of hypodensity over the left thalamus with hypodense focus of the right cerebellar which may represent lacunar infarct of unknown chronicity. Otherwise, no evidence for acute intracranial abnormalities. If symptoms persist, MRI may be considered for further evaluation. CT head, 07/14/2024: 1. No evidence of acute intracranial abnormality. 2. Mild white matter disease, nonspecific but most commonly associated with sequelae of chronic microvascular ischemic changes. 3. Acute sinusitis. vital signs Vital Sign Date Time Temp Pulse Resp B/P (MAP) Pulse Ox O2 Delivery O2 Flow Rate FiO2 07/15/24 07:19 84 31 142/74 (96) 100 30 07/15/24 07:00 99.9 211.8 07/15/24 06:00 Mechanical Ventilator+ Total Intake and Output 07/14/24 07/14/24 07/15/24 15:00 23:00 07:00 Intake Total 214.805 ml 394.571 ml 357.920 ml Output Total 1000 ml 650 ml Balance 214.805 ml -605.429 ml -292.080 ml medications Current Medications Medications Dose Ordered Sig/Ginger Route Start Time Stop Time Status Last Admin Dose Admin Atorvastatin Calcium 40 mg HS PO 07/06/24 22:00 07/14/24 21:45 40 MG Gabapentin 400 mg BID PO 07/06/24 22:00 Hold Levothyroxine Sodium 75 mcg QAM@0600 PO 07/07/24 06:00 07/15/24 05:39 75 MCG Montelukast Sodium 10 mg HS PO 07/06/24 22:00 07/14/24 21:45 10 MG Ondansetron HCl 4 mg Q4HP PRN IV 07/06/24 19:00 07/08/24 19:53 4 MG Acetaminophen 650 mg Q6HP PRN PO 07/06/24 19:00 07/14/24 13:01 650 MG Pantoprazole Sodium 40 mg DAILY IV 07/09/24 10:00 07/14/24 10:12 40 MG Docusate Sodium 100 mg BIDPRN PRN PO 07/08/24 12:45 07/09/24 10:25 100 MG Doxycycline Hyclate 100 ml @ 50 mls/hr Q12H IV 07/09/24 15:00 07/15/24 04:11 50 MLS/HR Piperacillin Sod/ Tazobactam Sod 100 ml @ 25 mls/hr Q12H IV 07/09/24 16:00 07/15/24 04:22 25 MLS/HR Hydralazine HCl 10 mg Q6HP PRN IV 07/09/24 18:00 07/14/24 06:52 10 MG Midazolam HCl 50 ml @ 1 mls/hr Q24H IV 07/09/24 21:15 07/13/24 03:52 6 MLS/HR Fentanyl Citrate 250 ml @ 2.5 mls/hr Q24H IV 07/09/24 21:15 07/12/24 05:00 12.5 MLS/HR Carbamazepine 200 mg BID PO 07/09/24 22:00 07/14/24 21:46 200 MG Epoetin Julito-epbx 4,000 unit TUTHSA SC 07/11/24 11:15 07/14/24 10:13 4,000 UNIT Norepinephrine Bitartrate 32 mg/ Sodium Chloride 250 ml @ 0.938 mls/ hr Q24H IV 07/11/24 15:30 07/14/24 20:02 0.938 MLS/HR Diagnostic Test (Pha) 1 strip Q6HR 07/13/24 00:00 07/15/24 05:38 1 STRIP Insulin Human Regular FOLLOW SLIDING SCALE Q6HR SC 07/13/24 00:00 Dextrose 50 ml UD IV 07/13/24 00:00 Enoxaparin Sodium 40 mg DAILY SC 07/13/24 10:00 UNV Enoxaparin Sodium 30 mg DAILY SC 07/13/24 10:00 07/14/24 10:13 30 MG Micafungin Sodium 100 mg/Sodium Chloride 100 ml @ 100 mls/hr DAILY IV 07/14/24 10:00 07/14/24 10:12 100 MLS/HR Dexmedetomidine HCl 400 mcg/ Dextrose 100 ml @ 4.935 mls/ hr [id number] IV 07/13/24 10:15 07/15/24 06:44 4.935 MLS/HR Labetalol HCl 10 mg Q2HPRN PRN IV 07/14/24 08:45 Nystatin 5 ml QID MT 07/14/24 12:00 07/15/24 05:39 5 ML Enteral Nutritional Formula 1,000 ml 50ML/HR GT 07/15/24 07:15 Amlodipine Besylate 10 mg DAILY GT 07/15/24 10:00 Albuterol 2.5 mg Q6HR NEB 07/15/24 12:00 Ipratropium [place] 0.5 mg Q6HR NEB 07/15/24 12:00 Acetylcysteine 100 mg Q6HR NEB 07/15/24 12:00 07/16/24 06:01 Metoclopramide HCl 5 mg Q8HR GT 07/15/24 07:38 objective The patient is well-nourished and well-developed with no distress. The patient is intubated MENTAL STATUS: Subjective CRANIAL NERVES: Pupils are equal, round and reactive.There are corneal reflexes and doll's eyes phenomenon. No signs of facial weakness. There are gagging or coughing reflexes SENSATION: responses to pain stimuli. MOTOR: Normal tone in the upper and lower extremity. Normal muscle bulk. No fasciculations. No spontaneous movement. REFLEXES: Deep tendon reflexes are symmetrical. No pathological reflexes. CEREBELLAR/COORDINATION: Deferred GAIT/STATION: deferred laboratory and microbiology Laboratory Tests 07/15/24 03:35 Test 07/15/24 03:35 Range/Units Serum Glucose 88 74-106 mg/dL Problem List Altered mental status/Coma Hypoxic encephalopathy Metabolic encephalopathy Toxic encephalopathy Acute respiratory failure Pneumonia Sepsis/septic shock Acute kidney failure Assessment/Plan Monitoring Supportive treatment Follow-up labs EEG MRI head Stabilize vitals Respiratory support/vent management Oxygen IV antibiotics Pulmonology on case Cardiology on case GI on case Nephrology on case Surgery on case More recommendation per clinical course This medical document was created using an electronic medical record system with [employer] computerized dictation system. Although this document has been carefully reviewed, there may still be some phonetic and typographical errors. These areas are purely typographical due to imperfections of the software programs, and do not reflect any compromise in the patient's medical care. Prognosis guarded Dietary Evaluation Review Comments: Continue current plan of care Expected Outcomes/Goals: Pt will meet >75% estimated needs Fu 3-5 days Plan discussed with: Other Critical Care Time(min): 35 GISELA WISE MD Jul 15, 2024 08:54
[2024-07-15] MEDS: METOCLOPRAMIDE 10 mg/10ml ORAL soln GT SCH (09:19)
--- NOTE | 2024-07-15 09:59 | DVHPN2 ---
Progress Note Date Seen: Jul 15, 2024 Medical Necessity Reason Pt with a Central, PICC or Fol: Yes The following are medically ne: Central Line, South Catheter Reason for south catheter: Strict I&O Objective vital signs Vital Sign Date Time Temp Pulse Resp B/P (MAP) Pulse Ox O2 Delivery O2 Flow Rate FiO2 07/15/24 09:01 79 32 146/84 (104) 99 30 07/15/24 07:00 99.9 211.8 07/15/24 06:00 Mechanical Ventilator+ Total Intake and Output 07/14/24 07/14/24 07/15/24 14:59 22:59 06:59 Intake Total 219.740 ml 384.701 ml 367.790 ml Output Total 1000 ml 650 ml Balance 219.740 ml -615.299 ml -282.210 ml medications Current Medications Medications Dose Ordered Sig/Ginger Route Start Time Stop Time Status Last Admin Dose Admin Atorvastatin Calcium 40 mg HS PO 07/06/24 22:00 07/14/24 21:45 40 MG Gabapentin 400 mg BID PO 07/06/24 22:00 Hold Levothyroxine Sodium 75 mcg QAM@0600 PO 07/07/24 06:00 07/15/24 05:39 75 MCG Montelukast Sodium 10 mg HS PO 07/06/24 22:00 07/14/24 21:45 10 MG Ondansetron HCl 4 mg Q4HP PRN IV 07/06/24 19:00 07/08/24 19:53 4 MG Acetaminophen 650 mg Q6HP PRN PO 07/06/24 19:00 07/14/24 13:01 650 MG Pantoprazole Sodium 40 mg DAILY IV 07/09/24 10:00 07/14/24 10:12 40 MG Docusate Sodium 100 mg BIDPRN PRN PO 07/08/24 12:45 07/09/24 10:25 100 MG Doxycycline Hyclate 100 ml @ 50 mls/hr Q12H IV 07/09/24 15:00 07/15/24 04:11 50 MLS/HR Piperacillin Sod/ Tazobactam Sod 100 ml @ 25 mls/hr Q12H IV 07/09/24 16:00 07/15/24 04:22 25 MLS/HR Hydralazine HCl 10 mg Q6HP PRN IV 07/09/24 18:00 07/14/24 06:52 10 MG Midazolam HCl 50 ml @ 1 mls/hr Q24H IV 07/09/24 21:15 07/13/24 03:52 6 MLS/HR Fentanyl Citrate 250 ml @ 2.5 mls/hr Q24H IV 07/09/24 21:15 07/12/24 05:00 12.5 MLS/HR Carbamazepine 200 mg BID PO 07/09/24 22:00 07/14/24 21:46 200 MG Epoetin Julito-epbx 4,000 unit TUTHSA SC 07/11/24 11:15 07/14/24 10:13 4,000 UNIT Norepinephrine Bitartrate 32 mg/ Sodium Chloride 250 ml @ 0.938 mls/ hr Q24H IV 07/11/24 15:30 07/14/24 20:02 0.938 MLS/HR Diagnostic Test (Pha) 1 strip Q6HR 07/13/24 00:00 07/15/24 05:38 1 STRIP Insulin Human Regular FOLLOW SLIDING SCALE Q6HR SC 07/13/24 00:00 Dextrose 50 ml UD IV 07/13/24 00:00 Enoxaparin Sodium 40 mg DAILY SC 07/13/24 10:00 UNV Enoxaparin Sodium 30 mg DAILY SC 07/13/24 10:00 07/14/24 10:13 30 MG Micafungin Sodium 100 mg/Sodium Chloride 100 ml @ 100 mls/hr DAILY IV 07/14/24 10:00 07/14/24 10:12 100 MLS/HR Dexmedetomidine HCl 400 mcg/ Dextrose 100 ml @ 4.935 mls/ hr [id number] IV 07/13/24 10:15 07/15/24 06:44 4.935 MLS/HR Labetalol HCl 10 mg Q2HPRN PRN IV 07/14/24 08:45 Nystatin 5 ml QID MT 07/14/24 12:00 07/15/24 05:39 5 ML Enteral Nutritional Formula 1,000 ml 50ML/HR GT 07/15/24 07:15 Amlodipine Besylate 10 mg DAILY GT 07/15/24 10:00 Albuterol 2.5 mg Q6HR NEB 07/15/24 12:00 Ipratropium [place] 0.5 mg Q6HR NEB 07/15/24 12:00 Acetylcysteine 100 mg Q6HR NEB 07/15/24 12:00 07/16/24 06:01 Metoclopramide HCl 5 mg Q8HR GT 07/15/24 07:38 07/15/24 09:19 5 MG laboratory and microbiology Laboratory Tests 07/15/24 03:35 Test 07/15/24 03:35 Range/Units Serum Glucose 88 74-106 mg/dL Microbiology Date/Time Source Procedure Growth Status 07/11/24 12:00 Bronchial Washings Gram Stain - Final Resulted 07/11/24 12:00 Respiratory Culture - Preliminary Presumptive Zuleyka albicans Resulted 07/09/24 15:25 Trachea Gram Stain - Final Complete 07/09/24 15:25 Trachea Respiratory Culture - Final Complete Problem List/Assessment/Plan Problem List/Assessment/Plan INTUBATED AFEBRILE VSS CPAP ATTEMPTED CONTINUE CLOSE OBSERVATION HIGH RISK FOR SURGERY NEUROLOGY EVAL ONGOING Plan discussed with: Patient Dietary Evaluation Review Comments: Continue current plan of care Expected Outcomes/Goals: Pt will meet >75% estimated needs Fu 3-5 days SWATHI VILLANUEVA MD Jul 15, 2024 09:59
[2024-07-15] MEDS: amLODIPine BESYLATE 5 MG TAB GT SCH (10:17)
[2024-07-15] MEDS: ACETYLCYSTEINE 10 %(100MG/ML) SOL 4ML NEB SCH (11:26)
[2024-07-15] MEDS: IPRATROPIUM BROM 0.5 MG/2.5ML INH SOL NEB SCH (11:26)
[2024-07-15] MEDS: ALBUTEROL SULF 2.5 MG/0.5ML(0.5%) NEB SOLN NEB SCH (11:26)
--- NOTE | 2024-07-15 15:01 | DVHPN2 ---
Progress Note Date Seen: Jul 15, 2024 Medical Necessity Reason Pt with a Central, PICC or Fol: Yes The following are medically ne: Central Line, South Catheter Reason for south catheter: Strict I&O Subjective Patient reports: Other (intubated) Review of Systems: Deferred Objective vital signs Vital Sign Date Time Temp Pulse Resp B/P (MAP) Pulse Ox O2 Delivery O2 Flow Rate FiO2 07/15/24 13:49 76 30 140/68 (92) 100 30 07/15/24 11:45 99.3 210.7 07/15/24 10:07 Mechanical Ventilator+ Total Intake and Output 07/14/24 07/14/24 07/15/24 15:00 23:00 07:00 Intake Total 214.805 ml 394.571 ml 357.920 ml Output Total 1000 ml 650 ml Balance 214.805 ml -605.429 ml -292.080 ml medications Current Medications Medications Dose Ordered Sig/Ginger Route Start Time Stop Time Status Last Admin Dose Admin Atorvastatin Calcium 40 mg HS PO 07/06/24 22:00 07/14/24 21:45 40 MG Gabapentin 400 mg BID PO 07/06/24 22:00 Hold Levothyroxine Sodium 75 mcg QAM@0600 PO 07/07/24 06:00 07/15/24 05:39 75 MCG Montelukast Sodium 10 mg HS PO 07/06/24 22:00 07/14/24 21:45 10 MG Ondansetron HCl 4 mg Q4HP PRN IV 07/06/24 19:00 07/08/24 19:53 4 MG Acetaminophen 650 mg Q6HP PRN PO 07/06/24 19:00 07/14/24 13:01 650 MG Pantoprazole Sodium 40 mg DAILY IV 07/09/24 10:00 07/15/24 10:16 40 MG Docusate Sodium 100 mg BIDPRN PRN PO 07/08/24 12:45 07/09/24 10:25 100 MG Doxycycline Hyclate 100 ml @ 50 mls/hr Q12H IV 07/09/24 15:00 07/15/24 04:11 50 MLS/HR Piperacillin Sod/ Tazobactam Sod 100 ml @ 25 mls/hr Q12H IV 07/09/24 16:00 07/15/24 04:22 25 MLS/HR Hydralazine HCl 10 mg Q6HP PRN IV 07/09/24 18:00 07/14/24 06:52 10 MG Midazolam HCl 50 ml @ 1 mls/hr Q24H IV 07/09/24 21:15 07/13/24 03:52 6 MLS/HR Fentanyl Citrate 250 ml @ 2.5 mls/hr Q24H IV 07/09/24 21:15 07/12/24 05:00 12.5 MLS/HR Carbamazepine 200 mg BID PO 07/09/24 22:00 07/15/24 10:18 200 MG Epoetin Julito-epbx 4,000 unit TUTHSA SC 07/11/24 11:15 07/14/24 10:13 4,000 UNIT Norepinephrine Bitartrate 32 mg/ Sodium Chloride 250 ml @ 0.938 mls/ hr Q24H IV 07/11/24 15:30 07/14/24 20:02 0.938 MLS/HR Diagnostic Test (Pha) 1 strip Q6HR 07/13/24 00:00 07/15/24 11:44 1 STRIP Insulin Human Regular FOLLOW SLIDING SCALE Q6HR SC 07/13/24 00:00 Dextrose 50 ml UD IV 07/13/24 00:00 Enoxaparin Sodium 40 mg DAILY SC 07/13/24 10:00 UNV Enoxaparin Sodium 30 mg DAILY SC 07/13/24 10:00 07/15/24 10:18 30 MG Micafungin Sodium 100 mg/Sodium Chloride 100 ml @ 100 mls/hr DAILY IV 07/14/24 10:00 07/15/24 10:16 100 MLS/HR Dexmedetomidine HCl 400 mcg/ Dextrose 100 ml @ 4.935 mls/ hr [id number] IV 07/13/24 10:15 07/15/24 06:44 4.935 MLS/HR Labetalol HCl 10 mg Q2HPRN PRN IV 07/14/24 08:45 Nystatin 5 ml QID MT 07/14/24 12:00 07/15/24 05:39 5 ML Enteral Nutritional Formula 1,000 ml 50ML/HR GT 07/15/24 07:15 Amlodipine Besylate 10 mg DAILY GT 07/15/24 10:00 07/15/24 10:17 10 MG Albuterol 2.5 mg Q6HR NEB 07/15/24 12:00 07/15/24 11:26 2.5 MG Ipratropium [place] 0.5 mg Q6HR NEB 07/15/24 12:00 07/15/24 11:26 0.5 MG Acetylcysteine 100 mg Q6HR NEB 07/15/24 12:00 07/16/24 06:01 07/15/24 11:26 100 MG Metoclopramide HCl 5 mg Q8HR GT 07/15/24 07:38 07/15/24 09:19 5 MG Examination: GENERAL:Abnormal, LUNGS:Abnormal, MSK:Normal, NEURO:Abnormal laboratory and microbiology Laboratory Tests 07/15/24 03:35 Test 07/15/24 03:35 Range/Units Serum Glucose 88 74-106 mg/dL Microbiology Date/Time Source Procedure Growth Status 07/11/24 12:00 Bronchial Washings Gram Stain - Final Resulted 07/11/24 12:00 Respiratory Culture - Preliminary Presumptive Zuleyka albicans Resulted 07/09/24 15:25 Trachea Gram Stain - Final Complete 07/09/24 15:25 Trachea Respiratory Culture - Final Complete Problem List/Assessment/Plan Problem List/Assessment/Plan Acute kidney injury hemodynamic CKd 4 ; with solitary kidney s/p nephrectomy abdominal pain, Diverticulosis Cholelithiasis without cholecystitis constipation anemia Acute respiratory failure with multifocal pneumonia Septic shock Constipation with fecal impaction status post enema recs stable renal function good uop for now Plan discussed with: Other Dietary Evaluation Review Comments: Continue current plan of care Expected Outcomes/Goals: Pt will meet >75% estimated needs Fu 3-5 days KYLIE ROMERO MD Jul 15, 2024 15:01
--- NOTE | 2024-07-15 16:07 | DVH ---
EXAM: MRI BRAIN HEAD WO CONTRAST CLINICAL HISTORY: anoxic injury, s/p cpr COMPARISON: None TECHNIQUE: Multiplanar, multisequence magnetic resonance imaging of the brain was performed without intravenous contrast. FINDINGS: Mild diffuse brain atrophy. Mild chronic small-vessel ischemic changes. No hemorrhages, masses, mass effect, midline shift, herniation or cytotoxic edema following a large v ascular territory. No intra-axial or extra-axial fluid collections. No evidence of hydrocephalus. Th e basal cisterns are patent. The vascular flow voids are maintained. Nonspecific partially empty sella. The cerebellar tonsils are normal position. Right cerebellar celebrity chef entrepreneur media personality eliu lacunar infarct. Otherwise, the cerebellum is unremarkable. The orbits and globes unremarkable. Mucoperiosteal thickening of the ethmoid, sphenoid and maxillary sinuses. Mild mucosal thickening of the mastoids. No worrisome calvarial lesions. Calcification of th e falx is noted. Suggested small hemangiomas of the parietal calvarium. Mild prominence of the calvar ial vascular channels. IMPRESSION: No evidence of acute intracranial abnormalities.
--- NOTE | 2024-07-15 16:27 | DVHPN2 ---
Progress Note - Dictate Date Seen: Jul 15, 2024 Medical Necessity Reason Pt with a Central, PICC or Fol: Yes The following are medically ne: Central Line, South Catheter Reason for south catheter: Strict I&O Subjective Patient seen in ICU 110 Intubated off sedation;not arousable Patient has multi focal pneumonia on IV antibiotics Patient is being treated with lactulose and MiraLax for her constipation; p atient is now having daily bowel movements Patient is currently on tube feedings which she is tolerating vital signs Vital Sign Date Time Temp Pulse Resp B/P (MAP) Pulse Ox O2 Delivery O2 Flow Rate FiO2 07/15/24 16:15 84 31 142/74 100 30 07/15/24 11:45 99.3 210.7 07/15/24 10:07 Mechanical Ventilator+ Total Intake and Output 07/14/24 07/14/24 07/15/24 15:00 23:00 07:00 Intake Total 214.805 ml 394.571 ml 357.920 ml Output Total 1000 ml 650 ml Balance 214.805 ml -605.429 ml -292.080 ml medications Current Medications Medications Dose Ordered Sig/Ginger Route Start Time Stop Time Status Last Admin Dose Admin Atorvastatin Calcium 40 mg HS PO 07/06/24 22:00 07/14/24 21:45 40 MG Gabapentin 400 mg BID PO 07/06/24 22:00 Hold Levothyroxine Sodium 75 mcg QAM@0600 PO 07/07/24 06:00 07/15/24 05:39 75 MCG Montelukast Sodium 10 mg HS PO 07/06/24 22:00 07/14/24 21:45 10 MG Ondansetron HCl 4 mg Q4HP PRN IV 07/06/24 19:00 07/08/24 19:53 4 MG Acetaminophen 650 mg Q6HP PRN PO 07/06/24 19:00 07/14/24 13:01 650 MG Pantoprazole Sodium 40 mg DAILY IV 07/09/24 10:00 07/15/24 10:16 40 MG Docusate Sodium 100 mg BIDPRN PRN PO 07/08/24 12:45 07/09/24 10:25 100 MG Doxycycline Hyclate 100 ml @ 50 mls/hr Q12H IV 07/09/24 15:00 07/15/24 16:11 50 MLS/HR Piperacillin Sod/ Tazobactam Sod 100 ml @ 25 mls/hr Q12H IV 07/09/24 16:00 07/15/24 04:22 25 MLS/HR Hydralazine HCl 10 mg Q6HP PRN IV 07/09/24 18:00 07/14/24 06:52 10 MG Midazolam HCl 50 ml @ 1 mls/hr Q24H IV 07/09/24 21:15 07/13/24 03:52 6 MLS/HR Fentanyl Citrate 250 ml @ 2.5 mls/hr Q24H IV 07/09/24 21:15 07/12/24 05:00 12.5 MLS/HR Carbamazepine 200 mg BID PO 07/09/24 22:00 07/15/24 10:18 200 MG Norepinephrine Bitartrate 32 mg/ Sodium Chloride 250 ml @ 0.938 mls/ hr Q24H IV 07/11/24 15:30 07/14/24 20:02 0.938 MLS/HR Diagnostic Test (Pha) 1 strip Q6HR 07/13/24 00:00 07/15/24 11:44 1 STRIP Insulin Human Regular FOLLOW SLIDING SCALE Q6HR SC 07/13/24 00:00 Dextrose 50 ml UD IV 07/13/24 00:00 Enoxaparin Sodium 40 mg DAILY SC 07/13/24 10:00 UNV Enoxaparin Sodium 30 mg DAILY SC 07/13/24 10:00 07/15/24 10:18 30 MG Micafungin Sodium 100 mg/Sodium Chloride 100 ml @ 100 mls/hr DAILY IV 07/14/24 10:00 07/15/24 10:16 100 MLS/HR Dexmedetomidine HCl 400 mcg/ Dextrose 100 ml @ 4.935 mls/ hr [id number] IV 07/13/24 10:15 07/15/24 06:44 4.935 MLS/HR Labetalol HCl 10 mg Q2HPRN PRN IV 07/14/24 08:45 Nystatin 5 ml QID MT 07/14/24 12:00 07/15/24 16:10 5 ML Enteral Nutritional Formula 1,000 ml 50ML/HR GT 07/15/24 07:15 Amlodipine Besylate 10 mg DAILY GT 07/15/24 10:00 07/15/24 10:17 10 MG Albuterol 2.5 mg Q6HR NEB 07/15/24 12:00 07/15/24 11:26 2.5 MG Ipratropium [place] 0.5 mg Q6HR NEB 07/15/24 12:00 07/15/24 11:26 0.5 MG Acetylcysteine 100 mg Q6HR NEB 07/15/24 12:00 07/16/24 06:01 07/15/24 11:26 100 MG Metoclopramide HCl 5 mg Q8HR GT 07/15/24 07:38 07/15/24 16:10 5 MG Epoetin Julito-epbx 4,000 unit TUTHSA@2100 SC 07/16/24 21:00 objective GEN: intubated sedated HEENT: NC/AT; MMM. CV: RRR, no m/r/g. LUNGS: Decreased breath sound ABD: Hypoactive bowel sounds, no rigidity no distention, soft EXT: skin Warm, well perfused. no rashes. No clubbing, cyanosis, or edema. laboratory and microbiology Laboratory Tests 07/15/24 03:35 Test 07/15/24 03:35 Range/Units Serum Glucose 88 74-106 mg/dL Problems(with codes): (1) N&V (nausea and vomiting) (2) Cholelithiasis (3) Constipation (4) Abdominal pain Prognosis Plan Neuro workup in progress Continue enteral tube feedings Monitor labs Possible CPAP trial once cleared from neurology Dietary Evaluation Review Comments: Continue current plan of care Expected Outcomes/Goals: Pt will meet >75% estimated needs Fu 3-5 days Plan discussed with: Other (ICU nurse Alexus) ASHLEIGH VILLANUEVA MD Jul 15, 2024 16:27
--- NOTE | 2024-07-15 22:56 | DVHPN2 ---
Progress Note - Dictate Date Seen: Jul 15, 2024 Medical Necessity Reason Pt with a Central, PICC or Fol: Yes The following are medically ne: Central Line, South Catheter Reason for south catheter: Strict I&O Subjective Patient seen and examined at bedside. Intubated on mechanical ventilator. Overnight events reviewed. vital signs Vital Sign Date Time Temp Pulse Resp B/P (MAP) Pulse Ox O2 Delivery O2 Flow Rate FiO2 07/15/24 22:45 77 33 131/77 (95) 100 07/15/24 22:40 30 07/15/24 22:00 Mechanical Ventilator+ 07/15/24 20:00 99.5 99.5 Total Intake and Output 07/14/24 07/14/24 07/15/24 15:00 23:00 07:00 Intake Total 214.805 ml 394.571 ml 362.820 ml Output Total 1000 ml 650 ml Balance 214.805 ml -605.429 ml -287.180 ml medications Current Medications Medications Dose Ordered Sig/Ginger Route Start Time Stop Time Status Last Admin Dose Admin Atorvastatin Calcium 40 mg HS PO 07/06/24 22:00 07/15/24 21:41 40 MG Gabapentin 400 mg BID PO 07/06/24 22:00 Hold Levothyroxine Sodium 75 mcg QAM@0600 PO 07/07/24 06:00 07/15/24 05:39 75 MCG Montelukast Sodium 10 mg HS PO 07/06/24 22:00 07/15/24 21:41 10 MG Ondansetron HCl 4 mg Q4HP PRN IV 07/06/24 19:00 07/08/24 19:53 4 MG Acetaminophen 650 mg Q6HP PRN PO 07/06/24 19:00 07/14/24 13:01 650 MG Pantoprazole Sodium 40 mg DAILY IV 07/09/24 10:00 07/15/24 10:16 40 MG Docusate Sodium 100 mg BIDPRN PRN PO 07/08/24 12:45 07/09/24 10:25 100 MG Doxycycline Hyclate 100 ml @ 50 mls/hr Q12H IV 07/09/24 15:00 07/15/24 16:11 50 MLS/HR Piperacillin Sod/ Tazobactam Sod 100 ml @ 25 mls/hr Q12H IV 07/09/24 16:00 07/15/24 18:15 25 MLS/HR Hydralazine HCl 10 mg Q6HP PRN IV 07/09/24 18:00 07/14/24 06:52 10 MG Fentanyl Citrate 250 ml @ 2.5 mls/hr Q24H IV 07/09/24 21:15 07/15/24 16:38 2.5 MLS/HR Carbamazepine 200 mg BID PO 07/09/24 22:00 07/15/24 21:41 200 MG Norepinephrine Bitartrate 32 mg/ Sodium Chloride 250 ml @ 0.938 mls/ hr Q24H IV 07/11/24 15:30 07/14/24 20:02 0.938 MLS/HR Diagnostic Test (Pha) 1 strip Q6HR 07/13/24 00:00 07/15/24 18:12 1 STRIP Insulin Human Regular FOLLOW SLIDING SCALE Q6HR SC 07/13/24 00:00 Dextrose 50 ml UD IV 07/13/24 00:00 Enoxaparin Sodium 40 mg DAILY SC 07/13/24 10:00 UNV Enoxaparin Sodium 30 mg DAILY SC 07/13/24 10:00 07/15/24 10:18 30 MG Micafungin Sodium 100 mg/Sodium Chloride 100 ml @ 100 mls/hr DAILY IV 07/14/24 10:00 07/15/24 10:16 100 MLS/HR Dexmedetomidine HCl 400 mcg/ Dextrose 100 ml @ 4.935 mls/ hr [id number] IV 07/13/24 10:15 07/15/24 19:55 12.338 MLS/HR Labetalol HCl 10 mg Q2HPRN PRN IV 07/14/24 08:45 Nystatin 5 ml QID MT 07/14/24 12:00 07/15/24 21:41 5 ML Enteral Nutritional Formula 1,000 ml 50ML/HR GT 07/15/24 07:15 Amlodipine Besylate 10 mg DAILY GT 07/15/24 10:00 07/15/24 10:17 10 MG Albuterol 2.5 mg Q6HR NEB 07/15/24 12:00 07/15/24 18:31 2.5 MG Ipratropium [place] 0.5 mg Q6HR NEB 07/15/24 12:00 07/15/24 18:31 0.5 MG Acetylcysteine 100 mg Q6HR NEB 07/15/24 12:00 07/16/24 06:01 07/15/24 18:31 100 MG Metoclopramide HCl 5 mg Q8HR GT 07/15/24 07:38 07/15/24 21:41 5 MG Epoetin Julito-epbx 4,000 unit SHASTA@2100 SC 07/16/24 21:00 objective Gen.: Patient lying in bed in medical ICU. Intubated on mechanical ventilator. Head: Normocephalic, atraumatic. Eyes: PERRLA. Ears: Normal external anatomy. Throat: Endotracheal tube and orogastric tube in place. Neck: Supple, trachea midline. Chest: Transmitted breath sounds bilaterally. Decreased air entry bilaterally. No wheezing. Bibasilar crackles. Cardiovascular: Positive S1, positive S2. Regular rate and rhythm. Abdomen: Positive bowel sounds in all 4 quadrants. Soft, nontender, nondistended. : South in place. Normal external genitalia. Rectal: Deferred. Skin: Warm, dry. Intact. Extremities: 2+ radial pulses bilaterally. No lower extremity edema. Neuro: Off sedation laboratory and microbiology Laboratory Tests 07/15/24 03:35 Test 07/15/24 03:35 Range/Units Serum Glucose 88 74-106 mg/dL Assessment/Plan Impression: Acute hypoxic respiratory failure On mechanical ventilator Aspiration pneumonia and aspiration pneumonitis Shock Chronic kidney disease Hypokalemia Chronic anemia Elevated troponin. Constipation Events: ABG reviewed, compensated Chest x-ray showed left basilar atelectasis or pneumonia. Pulmonary venous congestion S/p therapeutic bronchoscopy on 07/14/24, cleared secretions Patient tolerated the procedure well. Please see separate procedure note for details. Off sedation Precedex drip, Fentanyl SBT/PIPER Awaiting for mentation to improve. Off pressors, hemodynamically stable. Continue antibiotics Continue bronchodilators/Mucomyst Singulair Continue antifungal Continue tube feeds for nutritional support Monitor hemoglobin Iron supplementation Labs and imaging reviewed. Rest of plan as noted below Plan: s/p intubation on mechanical ventilator. On AC mode; RR 22, VT 400, PEEP 6, FiO2 30% Titrate FIO2 to keep O2 saturation above 90%. VAP bundle. Daily ABG and CXR while intubated Off sedation Continue antibiotics. F/u cultures. Pressors if necessary for hemodynamic support Titrate to keep mean arterial pressure greater than 65 mmHg. Monitor renal function Monitor electrolytes. Supplement as necessary. Monitor ins and outs. Accu-Cheks, ISS PRN. S/p bronchoscopy with RML BAL on 07/11/24 - see separate procedure note for details Follow up BAL cultures - presumptive Zuleyka albicans. GI prophylaxis. DVT prophylaxis. Prognosis: Poor given patient's multiple co-morbidities. Condition: Critical Rest of plan per hospitalist and other consultants. A total of 35 minutes of critical care time was spent reviewing the patient record, examining the patient, making a diagnostic and therapeutic plan, discussing this plan with the medical personnel, following up on diagnostic studies and following the patient for clinical stability excluding any and all procedures. At least 50% of this time was spent in direct, [id number] contact. Thank you Dr. Bhatia, for allowing me to participate in this patient's care. Further recommendations will depend on the patient's clinical course. Please do not hesitate to contact me if you have any questions or concerns. This medical document was created using an electronic medical record system with [employer] dictation system. Although these documentations are being carefully reviewed, there may still be some phonetic and typographical changes. The errors are purely typographical, due to imperfection on the software program, and do not reflect any compromise in the patient's medical care. Dietary Evaluation Review Comments: Continue current plan of care Expected Outcomes/Goals: Pt will meet >75% estimated needs Fu 3-5 days Plan discussed with: Other (KATHE Vaughan) Critical Care Time(min): 35 ABIMBOLA PAYNE MD Jul 15, 2024 22:56
--- NOTE | 2024-07-15 23:47 | DVHPN2 ---
Progress Note - Dictate Date Seen: Jul 15, 2024 Medical Necessity Reason Pt with a Central, PICC or Fol: Yes The following are medically ne: Central Line, South Catheter Reason for south catheter: Strict I&O Subjective Patient was seen and evaluated in follow up in the ICU. Patient is intubated and sedated on ventilator. 30% FiO2. Patient is responsive to painful stimuli. Patient's eyes are open however she does not visually track and has sluggish pupils. Continued on tube feedings. HGB 8.8, HCT 25.7, BUN 54, LIBRARY CL[employer] 2.70. Chest x-ray showed left basilar atelectasis or pneumonia. Pulmonary venous congestion. vital signs Vital Sign Date Time Temp Pulse Resp B/P (MAP) Pulse Ox O2 Delivery O2 Flow Rate FiO2 07/15/24 11:45 99.3 73 30 136/80 (98) 100 210.7 07/15/24 11:21 30 07/15/24 10:07 Mechanical Ventilator+ Total Intake and Output 07/14/24 07/14/24 07/15/24 15:00 23:00 07:00 Intake Total 214.805 ml 394.571 ml 357.920 ml Output Total 1000 ml 650 ml Balance 214.805 ml -605.429 ml -292.080 ml medications Current Medications Medications Dose Ordered Sig/Ginger Route Start Time Stop Time Status Last Admin Dose Admin Atorvastatin Calcium 40 mg HS PO 07/06/24 22:00 07/14/24 21:45 40 MG Gabapentin 400 mg BID PO 07/06/24 22:00 Hold Levothyroxine Sodium 75 mcg QAM@0600 PO 07/07/24 06:00 07/15/24 05:39 75 MCG Montelukast Sodium 10 mg HS PO 07/06/24 22:00 07/14/24 21:45 10 MG Ondansetron HCl 4 mg Q4HP PRN IV 07/06/24 19:00 07/08/24 19:53 4 MG Acetaminophen 650 mg Q6HP PRN PO 07/06/24 19:00 07/14/24 13:01 650 MG Pantoprazole Sodium 40 mg DAILY IV 07/09/24 10:00 07/15/24 10:16 40 MG Docusate Sodium 100 mg BIDPRN PRN PO 07/08/24 12:45 07/09/24 10:25 100 MG Doxycycline Hyclate 100 ml @ 50 mls/hr Q12H IV 07/09/24 15:00 07/15/24 04:11 50 MLS/HR Piperacillin Sod/ Tazobactam Sod 100 ml @ 25 mls/hr Q12H IV 07/09/24 16:00 07/15/24 04:22 25 MLS/HR Hydralazine HCl 10 mg Q6HP PRN IV 07/09/24 18:00 07/14/24 06:52 10 MG Midazolam HCl 50 ml @ 1 mls/hr Q24H IV 07/09/24 21:15 07/13/24 03:52 6 MLS/HR Fentanyl Citrate 250 ml @ 2.5 mls/hr Q24H IV 07/09/24 21:15 07/12/24 05:00 12.5 MLS/HR Carbamazepine 200 mg BID PO 07/09/24 22:00 07/15/24 10:18 200 MG Epoetin Julito-epbx 4,000 unit TUTHSA SC 07/11/24 11:15 07/14/24 10:13 4,000 UNIT Norepinephrine Bitartrate 32 mg/ Sodium Chloride 250 ml @ 0.938 mls/ hr Q24H IV 07/11/24 15:30 07/14/24 20:02 0.938 MLS/HR Diagnostic Test (Pha) 1 strip Q6HR 07/13/24 00:00 07/15/24 11:44 1 STRIP Insulin Human Regular FOLLOW SLIDING SCALE Q6HR SC 07/13/24 00:00 Dextrose 50 ml UD IV 07/13/24 00:00 Enoxaparin Sodium 40 mg DAILY SC 07/13/24 10:00 UNV Enoxaparin Sodium 30 mg DAILY SC 07/13/24 10:00 07/15/24 10:18 30 MG Micafungin Sodium 100 mg/Sodium Chloride 100 ml @ 100 mls/hr DAILY IV 07/14/24 10:00 07/15/24 10:16 100 MLS/HR Dexmedetomidine HCl 400 mcg/ Dextrose 100 ml @ 4.935 mls/ hr [id number] IV 07/13/24 10:15 07/15/24 06:44 4.935 MLS/HR Labetalol HCl 10 mg Q2HPRN PRN IV 07/14/24 08:45 Nystatin 5 ml QID MT 07/14/24 12:00 07/15/24 05:39 5 ML Enteral Nutritional Formula 1,000 ml 50ML/HR GT 07/15/24 07:15 Amlodipine Besylate 10 mg DAILY GT 07/15/24 10:00 07/15/24 10:17 10 MG Albuterol 2.5 mg Q6HR NEB 07/15/24 12:00 07/15/24 11:26 2.5 MG Ipratropium [place] 0.5 mg Q6HR NEB 07/15/24 12:00 07/15/24 11:26 0.5 MG Acetylcysteine 100 mg Q6HR NEB 07/15/24 12:00 07/16/24 06:01 07/15/24 11:26 100 MG Metoclopramide HCl 5 mg Q8HR GT 07/15/24 07:38 07/15/24 09:19 5 MG objective GENERAL: Intubated on ventilator. LUNGS: Decreased breath sounds. CARDIOVASCULAR: Heart sounds are good. ABDOMEN: Soft. laboratory and microbiology Laboratory Tests 07/15/24 03:35 Test 07/15/24 03:35 Range/Units Serum Glucose 88 74-106 mg/dL Problem List Acute hypoxic respiratory failure due to aspiration pneumonia/aspiration pneumonitis. Aspiration pneumonia. Intractable vomiting. Shock, septic possible. Symptomatic cholelithiasis possible. Chronic kidney disease. Hypokalemia. Chronic anemia. History of left kidney mass status post nephrectomy 2021 [facility]. Hypertension. Diverticulosis. Fatty liver. Persisting constipation. Elevated troponin. Episode of SVT. Assessment/Plan Continued all current supportive medical care. Lipitor. IV antibiotics as ordered. DVT and GI prophylactics. IV Hydralazine for SBP >170. Morphine for pain management. Vasopressors for hemodynamic support. Additional plan as per the hospital course. Critical care time of 45 minutes provided to include time spent evaluation of patient at bedside, when appropriate patient/family education for diagnosis, treatment plan, review of pertinent medical information and discussion of care with specialty providers and PCP. Mechanical ventilator parameters, treatment and adjustments have personally been reviewed by me and treatment plan by fusing line inspector has also been reviewed. Dietary Evaluation Review Comments: Continue current plan of care Expected Outcomes/Goals: Pt will meet >75% estimated needs Fu 3-5 days Plan discussed with: Other MARÍA MIGUEL MD Jul 15, 2024 12:48
[2024-07-16] VITALS (115 sets, daily range): BP systolic 15–165; BP diastolic 45–105; PULSE 62–129; RESP 12–34; TEMP 97.9–98.6; O2SAT 93–100
[2024-07-16] MEDS: Nepro With Carb Steady 1 Liter Bottle GT SCH (00:18)
[2024-07-16 04:08] LABS: Anion Gap 9 (5-15); Carbon Dioxide 25 mmol/L (20-31); Hematocrit 25.1 % (36.0-46.0); Hemoglobin 8.5 g/dL (12.2-16.2); Mean Corpuscular Hemoglobin 29.5 pg (28.0-32.0); Mean Corpuscular Hgb Conc. 33.8 g/dL (32.0-36.0); Mean Corpuscular Volume 87.3 fL (80.0-100.0); Platelet Count (auto) 159 10^3/uL (140-450); Potassium 3.6 mmol/L (3.5-5.1); Red Blood Cells 2.88 10^6/uL (4.0-5.20); Red Cell Distribution Width 15.7 % (11.8-14.3); Sodium 141 mmol/L (136-145); White Blood Cell 4.5 10^3/uL (4.4-10.8)
[2024-07-16 04:09] LABS: Calcium 9.5 mg/dL (8.7-10.4)
[2024-07-16 04:14] LABS: BUN/Creatinine Ratio 23.6 (10.0-20.0)
[2024-07-16 04:15] LABS: Basophils % (manual) 0 (0.0-2.0); Blast Cells 0; Metamyelocytes % 0; Myelocytes % 0; Promyelocytes % 0; Reactive Lymphocytes 0
[2024-07-16 04:30] LABS: Blood Urea Nitrogen 62 mg/dL (9-23); Chloride 107 mmol/L (98-107); Glucose 108 mg/dL (74-106)
[2024-07-16 05:13] LABS: Band Neutrophils % (manual) 3; Eosinophils % (manual) 1 (0-7); Lymphocytes % (manual) 32 (10.0-50.0); Monocytes % (manual) 8 (0-12); Platelet Estimate Adequate
--- NOTE | 2024-07-16 06:01 | DVH ---
EXAM: XR Chest, 1 View CLINICAL INDICATION: pna TECHNIQUE: Frontal view of the chest. COMPARISON: XY CHEST PORTABLE on DOS: 07/15/24, XY CHEST PORTABLE on DOS: 07/14/24, XY CHEST PORTABLE o n DOS: 07/13/24, XY CHEST PORTABLE on DOS: 07/12/24, XY CHEST XRAY 1 VIEW on DOS: 07/11/24 FINDINGS: LUNGS AND PLEURAL SPACES: Left basilar atelectasis or pneumonia. No pneumothorax. HEART: Unremarkable. No cardiomegaly. MEDIASTINUM: Unremarkable. Normal mediastinal contour. BONES/JOINTS: Unremarkable. No acute fracture. TUBES, LINES AND DEVICES: Stable tubes and lines. OTHER FINDINGS: . .. IMPRESSION: Left basilar atelectasis or pneumonia.
[2024-07-16 06:37] LABS: Base Excess -3.1 mmol/L (-2.0-3.0)
--- NOTE | 2024-07-16 09:16 | DVHPN2 ---
Subjective Patient following some commands Reviewed: Care Plan, H&P, Labs, Medications, Previous Orders, Radiology Changes from previous H/P or p: No Changes General: Per HPI Objective Vitals Vital Signs Date Time Temp Pulse Resp B/P (MAP) Pulse Ox O2 Delivery O2 Flow Rate FiO2 07/16/24 08:41 98/71 07/16/24 07:00 64 28 100 07/16/24 06:45 30 07/16/24 06:00 Mechanical Ventilator+ 07/16/24 04:30 98.4 98.4 Intake/Output Intake and Output 07/16/24 07:00 Intake Total 1405.920 ml Output Total 1650 ml Balance -244.080 ml Intake Oral 180 ml IV Total 822.920 ml Tube Feeding 403 ml Output Urine Total 1650 ml # Bowel Movements 1 General Appearance: mild distress, Other (Chemically sedated) HEENT: Atraumatic, PERRLA Lungs: Clear to auscultation, Normal air movement Cardiovascular: Normal S1, Normal S2 Abdomen: Normal bowel sounds, Soft, No tenderness, No hepatospenomegaly Genitourinary: No Apparent Abnormalities (Gastelum catheter) Neuro: Other (Unable to assess) Skin: Dry, Intact Psych/Mental Status: Other (Unable to assess) Medications Current Medications Medications Dose Ordered Sig/Ginger Route Start Time Stop Time Status Last Admin Dose Admin Atorvastatin Calcium 40 mg HS PO 07/06/24 22:00 07/15/24 21:41 40 MG Gabapentin 400 mg BID PO 07/06/24 22:00 Hold Levothyroxine Sodium 75 mcg QAM@0600 PO 07/07/24 06:00 07/16/24 05:42 75 MCG Montelukast Sodium 10 mg HS PO 07/06/24 22:00 07/15/24 21:41 10 MG Ondansetron HCl 4 mg Q4HP PRN IV 07/06/24 19:00 07/08/24 19:53 4 MG Acetaminophen 650 mg Q6HP PRN PO 07/06/24 19:00 07/14/24 13:01 650 MG Pantoprazole Sodium 40 mg DAILY IV 07/09/24 10:00 07/15/24 10:16 40 MG Docusate Sodium 100 mg BIDPRN PRN PO 07/08/24 12:45 07/09/24 10:25 100 MG Doxycycline Hyclate 100 ml @ 50 mls/hr Q12H IV 07/09/24 15:00 07/16/24 02:44 50 MLS/HR Piperacillin Sod/ Tazobactam Sod 100 ml @ 25 mls/hr Q12H IV 07/09/24 16:00 07/16/24 04:53 25 MLS/HR Hydralazine HCl 10 mg Q6HP PRN IV 07/09/24 18:00 07/14/24 06:52 10 MG Fentanyl Citrate 250 ml @ 2.5 mls/hr Q24H IV 07/09/24 21:15 07/15/24 16:38 2.5 MLS/HR Carbamazepine 200 mg BID PO 07/09/24 22:00 07/15/24 21:41 200 MG Norepinephrine Bitartrate 32 mg/ Sodium Chloride 250 ml @ 0.938 mls/ hr Q24H IV 07/11/24 15:30 07/14/24 20:02 0.938 MLS/HR Diagnostic Test (Pha) 1 strip Q6HR 07/13/24 00:00 07/16/24 05:42 1 STRIP Insulin Human Regular FOLLOW SLIDING SCALE Q6HR SC 07/13/24 00:00 Dextrose 50 ml UD IV 07/13/24 00:00 Enoxaparin Sodium 40 mg DAILY SC 07/13/24 10:00 UNV Enoxaparin Sodium 30 mg DAILY SC 07/13/24 10:00 07/15/24 10:18 30 MG Micafungin Sodium 100 mg/Sodium Chloride 100 ml @ 100 mls/hr DAILY IV 07/14/24 10:00 07/15/24 10:16 100 MLS/HR Dexmedetomidine HCl 400 mcg/ Dextrose 100 ml @ 4.935 mls/ hr [id number] IV 07/13/24 10:15 07/16/24 05:41 7.403 MLS/HR Labetalol HCl 10 mg Q2HPRN PRN IV 07/14/24 08:45 Nystatin 5 ml QID MT 07/14/24 12:00 07/16/24 05:41 5 ML Enteral Nutritional Formula 1,000 ml 50ML/HR GT 07/15/24 07:15 07/16/24 00:18 1,000 ML Amlodipine Besylate 10 mg DAILY GT 07/15/24 10:00 07/15/24 10:17 10 MG Albuterol 2.5 mg Q6HR NEB 07/15/24 12:00 07/16/24 06:45 2.5 MG Ipratropium [place] 0.5 mg Q6HR NEB 07/15/24 12:00 07/16/24 06:45 0.5 MG Metoclopramide HCl 5 mg Q8HR GT 07/15/24 07:38 07/16/24 05:42 5 MG Epoetin Julito-epbx 4,000 unit TUTHSA@2100 [place] 07/16/24 21:00 Laboratory Results Laboratory Tests 07/16/24 03:30 Chemistry Test 07/16/24 03:30 Calcium Level 9.5 mg/dL (8.7-10.4) Urinalysis Test 07/06/24 19:30 Urine Color Colorless (Yellow) Urine Clarity Clear (Clear) Urine pH 5.0 (5.0-9.0) Urine Specific [place] 1.006 (1.001-1.035) Urine Protein Negative (Negative) Urine Ketones Negative (Negative) Urine Blood Negative /uL (Negative) Urine Nitrite Negative (Negative) Urine Bilirubin Negative (Negative) Urine Urobilinogen Normal mg/dL (Negative) Urine Leukocyte Esterase Negative /uL (Negative) Urine RBC <1 /hpf (0 - 4) Urine Microscopic WBC 2 /HPF (0-5) Urine Squamous Epithelial Cells Few /hpf (<5) Urine Bacteria None seen /hpf (None Seen) Urine Glucose Normal mg/dL (Normal) Blood Gas Results Test 07/16/24 06:22 Arterial Blood pH 7.382 (7.350-7.450) FiO2 % 30.0 Microbiology Microbiology Date/Time Source Procedure Growth Status 07/11/24 12:00 Bronchial Washings Gram Stain - Final Resulted 07/11/24 12:00 Respiratory Culture - Preliminary Presumptive Zuleyka albicans Resulted 07/09/24 15:25 Trachea Gram Stain - Final Complete 07/09/24 15:25 Trachea Respiratory Culture - Final Complete Labs and/or images reviewed: Labs reviewed by me, Image(s) reviewed by me Assessment/Plan Assessment/Plan Impression: -abdominal pain, questionably secondary to cholelithiasis versus constipation -constipation -cholelithiasis -obesity -acute respiratory failure with mechanical ventilation -multifocal pneumonia, probable aspiration etiology -acute kidney injury, vasomotor nephropathy, underlying CKD stage 4 -hyperchloremic metabolic acidosis -septic shock -anemia of chronic disease Plan: Events: Patient has some improvement with the neurological status. Moving hands and feet to command. Blinking eyes. Discussed case with primary nurse as well as patient's daughter. Plan to wean sedation and perform CPAP trial when appropriate. -Neuro consult. EEG pending -continue doxycycline, Zosyn, and Micafungin -CT head: unremarkable. MRI of the Brain -nystatin swish and swallow -stop lactulose given patient now having diarrhea -Nepro to 50ml/hr -repeat labs, chest x-ray, ABG in a.m. Critical care time spent with patient discussing and formulating plan of care: 40 minutes. This does not include time spent performing procedures. This medical document was created using an electronic medical record system with [employer] dictation system. Although this document has been carefully reviewed, there may still be some phonetic and typographical errors. These areas are purely typographical due to imperfections of the software programs, and do not reflect any compromise in the patient's medical care. Plan discussed with: Patient, Other ( RN) My Orders Orders - DIANE FRANKLIN NP Procedure Category Date Status Time Cpap Trial For Am ORDERS 07/16/24 Transmitted 09:06 Cpap/Sed Vacation Med ORDERS 07/16/24 Transmitted Weaning 09:06 Date of Service: Jul 16, 2024 Billing Provider: DIANE FRANKLIN NP Common Visit Codes: 55608-[id number] CARE 30-74 MIN DIANE FRANKLIN NP Jul 16, 2024 09:16
--- NOTE | 2024-07-16 10:56 | DVHPN2 ---
Progress Note - Dictate Date Seen: Jul 16, 2024 Medical Necessity Reason Pt with a Central, PICC or Fol: Yes The following are medically ne: Central Line, South Catheter Reason for south catheter: Strict I&O Subjective Ms. Randolph is a 74 years old female with a history of hypertension, dyslipidemia, congestive heart failure, asthma, solitary kidney, obesity, she came to the [facility] on 07/06/2024 with a chief company of right flank pain for three days, in the hospital, the patient was found to have constipation. I have seen and examined the patient, I have discussed with her nurse, the case was discussed with Jorge. she was intubated, sedated, but is responsive to verbal stimuli RN: Was able to follow verbal commands earlier Precedex 0.15mcg/kg/h Sputum culture, 07/11/2024: Principal to Cirilo albicans Urinalysis, 07/06/2024: WBC: 2, urine leukocyte esterase: Negative ABG, 07/09/2024: Acidosis 07/10/2024: Metabolic acidosis, 07/12/2024: Metabolic acidosis, 07/13/2024: Metabolic acidosis WBC/HB/PLT/MCV, 07/14/2024: 6.1/9.1/128/87.1 BUN/CR, 07/06/2024: 32/2.63, 07/09/24: 34/3.44, 07/12/2024: 32/2.81, 07/14/2024: 46/2.7, 07/15/2024: 54/2.7 Liver function tests, 07/09/2024: Unremarkable Vitamin B12, 07/14/2024: 2949 TSH, 07/14/2024: 2.19 Chest x-ray, 07/14/2024: 1. Left basilar atelectasis or pneumonia. 2. Pulmonary venous congestion. CT head, 07/10/2024: Punctate focus of hypodensity over the left thalamus with hypodense focus of the right cerebellar which may represent lacunar infarct of unknown chronicity. Otherwise, no evidence for acute intracranial abnormalities. If symptoms persist, MRI may be considered for further evaluation. CT head, 07/14/2024: 1. No evidence of acute intracranial abnormality. 2. Mild white matter disease, nonspecific but most commonly associated with sequelae of chronic microvascular ischemic changes. 3. Acute sinusitis. MRI head, 07/15/2024: No evidence of acute intracranial abnormalities. vital signs Vital Sign Date Time Temp Pulse Resp B/P (MAP) Pulse Ox O2 Delivery O2 Flow Rate FiO2 07/16/24 10:18 81 13 142/67 (92) 100 30 07/16/24 06:00 Mechanical Ventilator+ 07/16/24 04:30 98.4 98.4 Total Intake and Output 07/15/24 07/15/24 07/16/24 15:00 23:00 07:00 Intake Total 172.77 ml 603.624 ml 629.526 ml Output Total 850 ml 800 ml Balance 172.77 ml -246.376 ml -170.474 ml medications Current Medications Medications Dose Ordered Sig/Ginger Route Start Time Stop Time Status Last Admin Dose Admin Atorvastatin Calcium 40 mg HS PO 07/06/24 22:00 07/15/24 21:41 40 MG Gabapentin 400 mg BID PO 07/06/24 22:00 Hold Levothyroxine Sodium 75 mcg QAM@0600 PO 07/07/24 06:00 07/16/24 05:42 75 MCG Montelukast Sodium 10 mg HS PO 07/06/24 22:00 07/15/24 21:41 10 MG Ondansetron HCl 4 mg Q4HP PRN IV 07/06/24 19:00 07/08/24 19:53 4 MG Acetaminophen 650 mg Q6HP PRN PO 07/06/24 19:00 07/14/24 13:01 650 MG Pantoprazole Sodium 40 mg DAILY IV 07/09/24 10:00 07/15/24 10:16 40 MG Docusate Sodium 100 mg BIDPRN PRN PO 07/08/24 12:45 07/09/24 10:25 100 MG Doxycycline Hyclate 100 ml @ 50 mls/hr Q12H IV 07/09/24 15:00 07/16/24 02:44 50 MLS/HR Piperacillin Sod/ Tazobactam Sod 100 ml @ 25 mls/hr Q12H IV 07/09/24 16:00 07/16/24 04:53 25 MLS/HR Hydralazine HCl 10 mg Q6HP PRN IV 07/09/24 18:00 07/14/24 06:52 10 MG Fentanyl Citrate 250 ml @ 2.5 mls/hr Q24H IV 07/09/24 21:15 07/15/24 16:38 2.5 MLS/HR Carbamazepine 200 mg BID PO 07/09/24 22:00 07/15/24 21:41 200 MG Norepinephrine Bitartrate 32 mg/ Sodium Chloride 250 ml @ 0.938 mls/ hr Q24H IV 07/11/24 15:30 07/14/24 20:02 0.938 MLS/HR Diagnostic Test (Pha) 1 strip Q6HR 07/13/24 00:00 07/16/24 05:42 1 STRIP Insulin Human Regular FOLLOW SLIDING SCALE Q6HR SC 07/13/24 00:00 Dextrose 50 ml UD IV 07/13/24 00:00 Enoxaparin Sodium 40 mg DAILY SC 07/13/24 10:00 UNV Enoxaparin Sodium 30 mg DAILY SC 07/13/24 10:00 07/15/24 10:18 30 MG Micafungin Sodium 100 mg/Sodium Chloride 100 ml @ 100 mls/hr DAILY IV 07/14/24 10:00 07/15/24 10:16 100 MLS/HR Dexmedetomidine HCl 400 mcg/ Dextrose 100 ml @ 4.935 mls/ hr [id number] IV 07/13/24 10:15 07/16/24 05:41 7.403 MLS/HR Labetalol HCl 10 mg Q2HPRN PRN IV 07/14/24 08:45 Nystatin 5 ml QID MT 07/14/24 12:00 07/16/24 05:41 5 ML Enteral Nutritional Formula 1,000 ml 50ML/HR GT 07/15/24 07:15 07/16/24 00:18 1,000 ML Amlodipine Besylate 10 mg DAILY GT 07/15/24 10:00 07/15/24 10:17 10 MG Albuterol 2.5 mg Q6HR NEB 07/15/24 12:00 07/16/24 06:45 2.5 MG Ipratropium [place] 0.5 mg Q6HR NEB 07/15/24 12:00 07/16/24 06:45 0.5 MG Metoclopramide HCl 5 mg Q8HR GT 07/15/24 07:38 07/16/24 05:42 5 MG Epoetin Julito-epbx 4,000 unit SHASTA@2100 [place] 07/16/24 21:00 objective The patient is well-nourished and well-developed with no distress. The patient is intubated MENTAL STATUS: Subjective CRANIAL NERVES: Pupils are equal, round and reactive.There are corneal reflexes and doll's eyes phenomenon. No signs of facial weakness. There are gagging or coughing reflexes SENSATION: responses to pain stimuli. MOTOR: Normal tone in the upper and lower extremity. Normal muscle bulk. No fasciculations. No spontaneous movement. REFLEXES: Deep tendon reflexes are symmetrical. No pathological reflexes. CEREBELLAR/COORDINATION: Deferred GAIT/STATION: deferred laboratory and microbiology Laboratory Tests 07/16/24 03:30 Test 07/16/24 03:30 Range/Units Serum Glucose 108 H 74-106 mg/dL Problem List Altered mental status/Coma Hypoxic encephalopathy Metabolic encephalopathy Toxic encephalopathy Acute respiratory failure Pneumonia Sepsis/septic shock Acute kidney failure Assessment/Plan Monitoring Supportive treatment Follow-up labs Stabilize vitals Respiratory support/vent management Oxygen IV antibiotics Pulmonology on case Cardiology on case GI on case Nephrology on case Surgery on case Consider CPAP trial and extubation More recommendation per clinical course This medical document was created using an electronic medical record system with [employer] computerized dictation system. Although this document has been carefully reviewed, there may still be some phonetic and typographical errors. These areas are purely typographical due to imperfections of the software programs, and do not reflect any compromise in the patient's medical care. Prognosis guarded Dietary Evaluation Review Comments: Continue current plan of care Expected Outcomes/Goals: Pt will meet >75% estimated needs Fu 3-5 days Plan discussed with: Other Critical Care Time(min): 30 GISELA WISE MD Jul 16, 2024 10:56
--- NOTE | 2024-07-16 11:32 | DVHPN2 ---
Progress Note Date Seen: Jul 16, 2024 Medical Necessity Reason Pt with a Central, PICC or Fol: Yes The following are medically ne: Central Line, South Catheter Reason for south catheter: Strict I&O Subjective Patient reports: Other (intubated) Review of Systems: Deferred Objective vital signs Vital Sign Date Time Temp Pulse Resp B/P (MAP) Pulse Ox O2 Delivery O2 Flow Rate FiO2 07/16/24 10:46 133/70 07/16/24 10:18 81 13 100 30 07/16/24 06:00 Mechanical Ventilator+ 07/16/24 04:30 98.4 98.4 Total Intake and Output 07/15/24 07/15/24 07/16/24 15:00 23:00 07:00 Intake Total 172.77 ml 603.624 ml 629.526 ml Output Total 850 ml 800 ml Balance 172.77 ml -246.376 ml -170.474 ml medications Current Medications Medications Dose Ordered Sig/Ginger Route Start Time Stop Time Status Last Admin Dose Admin Atorvastatin Calcium 40 mg HS PO 07/06/24 22:00 07/15/24 21:41 40 MG Gabapentin 400 mg BID PO 07/06/24 22:00 Hold Levothyroxine Sodium 75 mcg QAM@0600 PO 07/07/24 06:00 07/16/24 05:42 75 MCG Montelukast Sodium 10 mg HS PO 07/06/24 22:00 07/15/24 21:41 10 MG Ondansetron HCl 4 mg Q4HP PRN IV 07/06/24 19:00 07/08/24 19:53 4 MG Acetaminophen 650 mg Q6HP PRN PO 07/06/24 19:00 07/14/24 13:01 650 MG Pantoprazole Sodium 40 mg DAILY IV 07/09/24 10:00 07/16/24 10:45 40 MG Docusate Sodium 100 mg BIDPRN PRN PO 07/08/24 12:45 07/09/24 10:25 100 MG Doxycycline Hyclate 100 ml @ 50 mls/hr Q12H IV 07/09/24 15:00 07/16/24 02:44 50 MLS/HR Piperacillin Sod/ Tazobactam Sod 100 ml @ 25 mls/hr Q12H IV 07/09/24 16:00 07/16/24 04:53 25 MLS/HR Hydralazine HCl 10 mg Q6HP PRN IV 07/09/24 18:00 07/14/24 06:52 10 MG Fentanyl Citrate 250 ml @ 2.5 mls/hr Q24H IV 07/09/24 21:15 07/15/24 16:38 2.5 MLS/HR Carbamazepine 200 mg BID PO 07/09/24 22:00 07/16/24 10:45 200 MG Norepinephrine Bitartrate 32 mg/ Sodium Chloride 250 ml @ 0.938 mls/ hr Q24H IV 07/11/24 15:30 07/14/24 20:02 0.938 MLS/HR Diagnostic Test (Pha) 1 strip Q6HR 07/13/24 00:00 07/16/24 05:42 1 STRIP Insulin Human Regular FOLLOW SLIDING SCALE Q6HR SC 07/13/24 00:00 Dextrose 50 ml UD IV 07/13/24 00:00 Enoxaparin Sodium 40 mg DAILY SC 07/13/24 10:00 UNV Enoxaparin Sodium 30 mg DAILY SC 07/13/24 10:00 07/16/24 10:44 30 MG Micafungin Sodium 100 mg/Sodium Chloride 100 ml @ 100 mls/hr DAILY IV 07/14/24 10:00 07/16/24 10:58 100 MLS/HR Dexmedetomidine HCl 400 mcg/ Dextrose 100 ml @ 4.935 mls/ hr [id number] IV 07/13/24 10:15 07/16/24 05:41 7.403 MLS/HR Labetalol HCl 10 mg Q2HPRN PRN IV 07/14/24 08:45 Nystatin 5 ml QID MT 07/14/24 12:00 07/16/24 05:41 5 ML Enteral Nutritional Formula 1,000 ml 50ML/HR GT 07/15/24 07:15 07/16/24 00:18 1,000 ML Amlodipine Besylate 10 mg DAILY GT 07/15/24 10:00 07/16/24 10:46 10 MG Albuterol 2.5 mg Q6HR NEB 07/15/24 12:00 07/16/24 06:45 2.5 MG Ipratropium [place] 0.5 mg Q6HR NEB 07/15/24 12:00 07/16/24 06:45 0.5 MG Metoclopramide HCl 5 mg Q8HR GT 07/15/24 07:38 07/16/24 05:42 5 MG Epoetin Julito-epbx 4,000 unit TUTHSA@2100 [place] 07/16/24 21:00 Examination: NEURO:Abnormal laboratory and microbiology Laboratory Tests 07/16/24 03:30 Test 07/16/24 03:30 Range/Units Serum Glucose 108 H 74-106 mg/dL Microbiology Date/Time Source Procedure Growth Status 07/11/24 12:00 Bronchial Washings Gram Stain - Final Resulted 07/11/24 12:00 Respiratory Culture - Preliminary Presumptive Zuleyka albicans Resulted 07/09/24 15:25 Trachea Gram Stain - Final Complete 07/09/24 15:25 Trachea Respiratory Culture - Final Complete Problem List/Assessment/Plan Problem List/Assessment/Plan Acute kidney injury hemodynamic CKd 4 ; with solitary kidney s/p nephrectomy abdominal pain, Diverticulosis Cholelithiasis without cholecystitis constipation anemia Acute respiratory failure with multifocal pneumonia Septic shock Constipation with fecal impaction status post enema recs stable renal function good uop for now off diuretics Plan discussed with: Other Dietary Evaluation Review Comments: Continue current plan of care Expected Outcomes/Goals: Pt will meet >75% estimated needs Fu 3-5 days KYLIE ROMERO MD Jul 16, 2024 11:32
[2024-07-16 13:57] LABS: Base Excess -4.8 mmol/L (-2.0-3.0)
[2024-07-16] MEDS: EPINEPHrine HCL 0.5 ML NEB NEB ONE (15:15)
[2024-07-16] MEDS: EPOETIN ALFA-EPBX 4,000 UNIT/ML VIAL SC SCH (20:36)
--- NOTE | 2024-07-16 22:54 | DVHPN2 ---
Progress Note - Dictate Date Seen: Jul 16, 2024 Medical Necessity Reason Pt with a Central, PICC or Fol: Yes The following are medically ne: Central Line, South Catheter Reason for south catheter: Strict I&O Subjective Patient seen and examined at bedside. S/p extubation, on supplemental oxygen Overnight events reviewed. vital signs Vital Sign Date Time Temp Pulse Resp B/P (MAP) Pulse Ox O2 Delivery O2 Flow Rate FiO2 07/16/24 22:15 110 20 150/96 (114) 98 07/16/24 22:00 Nasal Cannula* 3 32 07/16/24 20:00 98.5 98.5 Total Intake and Output 07/15/24 07/15/24 07/16/24 15:00 23:00 07:00 Intake Total 172.77 ml 603.624 ml 629.526 ml Output Total 850 ml 800 ml Balance 172.77 ml -246.376 ml -170.474 ml medications Current Medications Medications Dose Ordered Sig/Ginger Route Start Time Stop Time Status Last Admin Dose Admin Atorvastatin Calcium 40 mg HS PO 07/06/24 22:00 07/15/24 21:41 40 MG Gabapentin 400 mg BID PO 07/06/24 22:00 Hold Levothyroxine Sodium 75 mcg QAM@0600 PO 07/07/24 06:00 07/16/24 05:42 75 MCG Montelukast Sodium 10 mg HS PO 07/06/24 22:00 07/15/24 21:41 10 MG Ondansetron HCl 4 mg Q4HP PRN IV 07/06/24 19:00 07/08/24 19:53 4 MG Acetaminophen 650 mg Q6HP PRN PO 07/06/24 19:00 07/14/24 13:01 650 MG Pantoprazole Sodium 40 mg DAILY IV 07/09/24 10:00 07/16/24 10:45 40 MG Docusate Sodium 100 mg BIDPRN PRN PO 07/08/24 12:45 07/09/24 10:25 100 MG Doxycycline Hyclate 100 ml @ 50 mls/hr Q12H IV 07/09/24 15:00 07/16/24 16:55 50 MLS/HR Piperacillin Sod/ Tazobactam Sod 100 ml @ 25 mls/hr Q12H IV 07/09/24 16:00 07/16/24 17:08 25 MLS/HR Hydralazine HCl 10 mg Q6HP PRN IV 07/09/24 18:00 07/14/24 06:52 10 MG Fentanyl Citrate 250 ml @ 2.5 mls/hr Q24H IV 07/09/24 21:15 07/15/24 16:38 2.5 MLS/HR Carbamazepine 200 mg BID PO 07/09/24 22:00 07/16/24 10:45 200 MG Norepinephrine Bitartrate 32 mg/ Sodium Chloride 250 ml @ 0.938 mls/ hr Q24H IV 07/11/24 15:30 07/14/24 20:02 0.938 MLS/HR Diagnostic Test (Pha) 1 strip Q6HR 07/13/24 00:00 07/16/24 18:00 1 STRIP Insulin Human Regular FOLLOW SLIDING SCALE Q6HR SC 07/13/24 00:00 Dextrose 50 ml UD IV 07/13/24 00:00 Enoxaparin Sodium 40 mg DAILY SC 07/13/24 10:00 UNV Enoxaparin Sodium 30 mg DAILY SC 07/13/24 10:00 07/16/24 10:44 30 MG Micafungin Sodium 100 mg/Sodium Chloride 100 ml @ 100 mls/hr DAILY IV 07/14/24 10:00 07/16/24 10:58 100 MLS/HR Dexmedetomidine HCl 400 mcg/ Dextrose 100 ml @ 4.935 mls/ hr [id number] IV 07/13/24 10:15 07/16/24 05:41 7.403 MLS/HR Labetalol HCl 10 mg Q2HPRN PRN IV 07/14/24 08:45 Nystatin 5 ml QID MT 07/14/24 12:00 07/16/24 18:53 5 ML Enteral Nutritional Formula 1,000 ml 50ML/HR GT 07/15/24 07:15 07/16/24 00:18 1,000 ML Amlodipine Besylate 10 mg DAILY GT 07/15/24 10:00 07/16/24 10:46 10 MG Albuterol 2.5 mg Q6HR NEB 07/15/24 12:00 07/16/24 18:13 2.5 MG Ipratropium [place] 0.5 mg Q6HR NEB 07/15/24 12:00 07/16/24 18:12 0.5 MG Metoclopramide HCl 5 mg Q8HR GT 07/15/24 07:38 07/16/24 05:42 5 MG Epoetin Julito-epbx 4,000 unit TUTHSA@2100 [place] 07/16/24 21:00 07/16/24 20:36 4,000 UNIT objective Gen.: Patient lying in bed in no apparent distress. On supplemental oxygen. Head: Normocephalic, atraumatic. Eyes: EOMI/PERRLA. Ears: Normal hearing. Normal anatomy. Neck/trachea: Trachea midline, supple. Nose: Normal external anatomy. Mouth: Moist mucous membranes. Chest: Decreased air entry bilaterally. No wheezing or rhonchi. Cardiovascular: Positive S1, positive S2. Regular rate and rhythm. Abdomen: Positive bowel sounds in all 4 quadrants. Soft, non-tender, non- distended. : Deferred. Rectal: Deferred. Skin: Warm, dry. Intact. Extremities: 2+ radial pulses bilaterally. No lower extremity edema. Neuro: Awake, alert, oriented x3. No gross motor or sensory deficits. Cranial nerves II through XII intact. Gait not assessed. laboratory and microbiology Laboratory Tests 07/16/24 03:30 Test 07/16/24 03:30 Range/Units Serum Glucose 108 H 74-106 mg/dL Assessment/Plan Impression: Acute hypoxic respiratory failure On mechanical ventilator Aspiration pneumonia and aspiration pneumonitis Shock Chronic kidney disease Hypokalemia Chronic anemia Elevated troponin. Constipation Events: Patient tolerated CPAP this AM and was extubated uneventfully Currently on supplemental oxygen at 3 LPM NC Taper O2 as tolerated Head of bed elevation Aspiration precautions Patient is NPO Swallow eval in the AM. Chest x-ray reviewed, shows left basilar atelectasis or pneumonia. Off pressors, hemodynamically stable. Continue antibiotics Continue bronchodilators/Mucomyst Continue antifungal Monitor hemoglobin S/p therapeutic bronchoscopy on 07/14/24, cleared secretions Patient tolerated the procedure well. Please see separate procedure note for details. Labs and imaging reviewed. Rest of plan as noted below Plan: S/p extubation Continue supplemental oxygen Titrate to keep O2 sats above 90%. Taper O2 as tolerated Continue antibiotics. F/u cultures. Pressors if necessary for hemodynamic support Titrate to keep mean arterial pressure greater than 65 mmHg. Monitor renal function Monitor electrolytes. Supplement as necessary. Monitor ins and outs. Accu-Cheks, ISS PRN. S/p bronchoscopy with RML BAL on 07/11/24 - see separate procedure note for details Follow up BAL cultures - presumptive Zuleyka albicans. GI prophylaxis. DVT prophylaxis. Prognosis: Poor given patient's multiple co-morbidities. Condition: Critical Rest of plan per hospitalist and other consultants. A total of 35 minutes of critical care time was spent reviewing the patient record, examining the patient, making a diagnostic and therapeutic plan, discussing this plan with the medical personnel, following up on diagnostic studies and following the patient for clinical stability excluding any and all procedures. At least 50% of this time was spent in direct, [id number] contact. Thank you Dr. Bhatia, for allowing me to participate in this patient's care. Further recommendations will depend on the patient's clinical course. Please do not hesitate to contact me if you have any questions or concerns. This medical document was created using an electronic medical record system with [employer] computerized dictation system. Although these documentations are being carefully reviewed, there may still be some phonetic and typographical changes. The errors are purely typographical, due to imperfection on the software program, and do not reflect any compromise in the patient's medical care. Dietary Evaluation Review Comments: Continue current plan of care Expected Outcomes/Goals: Pt will meet >75% estimated needs Fu 3-5 days Plan discussed with: Other (KATHE Garnica) Critical Care Time(min): 35 ABIMBOLA PAYNE MD Jul 16, 2024 22:54
--- NOTE | 2024-07-16 23:49 | DVHPN2 ---
Progress Note - Dictate Date Seen: Jul 16, 2024 Medical Necessity Reason Pt with a Central, PICC or Fol: Yes The following are medically ne: Central Line, South Catheter Reason for south catheter: Strict I&O Subjective Patient was seen and evaluated in follow up in the ICU. Patient is intubated and sedated on ventilator. 30% FiO2. Patient is undergoing CPAP trial. HGB 8.5, HCT 25.1, BUN 62, MINE SURVEYOR 2.63. MRI brain is unremarkable. Chest x-ray shows left basilar atelectasis or pneumonia. vital signs Vital Sign Date Time Temp Pulse Resp B/P (MAP) Pulse Ox O2 Delivery O2 Flow Rate FiO2 07/16/24 11:35 94 16 144/70 (94) 100 30 07/16/24 06:00 Mechanical Ventilator+ 07/16/24 04:30 98.4 98.4 Total Intake and Output 07/15/24 07/15/24 07/16/24 15:00 23:00 07:00 Intake Total 172.77 ml 603.624 ml 629.526 ml Output Total 850 ml 800 ml Balance 172.77 ml -246.376 ml -170.474 ml medications Current Medications Medications Dose Ordered Sig/Ginger Route Start Time Stop Time Status Last Admin Dose Admin Atorvastatin Calcium 40 mg HS PO 07/06/24 22:00 07/15/24 21:41 40 MG Gabapentin 400 mg BID PO 07/06/24 22:00 Hold Levothyroxine Sodium 75 mcg QAM@0600 PO 07/07/24 06:00 07/16/24 05:42 75 MCG Montelukast Sodium 10 mg HS PO 07/06/24 22:00 07/15/24 21:41 10 MG Ondansetron HCl 4 mg Q4HP PRN IV 07/06/24 19:00 07/08/24 19:53 4 MG Acetaminophen 650 mg Q6HP PRN PO 07/06/24 19:00 07/14/24 13:01 650 MG Pantoprazole Sodium 40 mg DAILY IV 07/09/24 10:00 07/16/24 10:45 40 MG Docusate Sodium 100 mg BIDPRN PRN PO 07/08/24 12:45 07/09/24 10:25 100 MG Doxycycline Hyclate 100 ml @ 50 mls/hr Q12H IV 07/09/24 15:00 07/16/24 02:44 50 MLS/HR Piperacillin Sod/ Tazobactam Sod 100 ml @ 25 mls/hr Q12H IV 07/09/24 16:00 07/16/24 04:53 25 MLS/HR Hydralazine HCl 10 mg Q6HP PRN IV 07/09/24 18:00 07/14/24 06:52 10 MG Fentanyl Citrate 250 ml @ 2.5 mls/hr Q24H IV 07/09/24 21:15 07/15/24 16:38 2.5 MLS/HR Carbamazepine 200 mg BID PO 07/09/24 22:00 07/16/24 10:45 200 MG Norepinephrine Bitartrate 32 mg/ Sodium Chloride 250 ml @ 0.938 mls/ hr Q24H IV 07/11/24 15:30 07/14/24 20:02 0.938 MLS/HR Diagnostic Test (Pha) 1 strip Q6HR 07/13/24 00:00 07/16/24 12:11 1 STRIP Insulin Human Regular FOLLOW SLIDING SCALE Q6HR SC 07/13/24 00:00 Dextrose 50 ml UD IV 07/13/24 00:00 Enoxaparin Sodium 40 mg DAILY SC 07/13/24 10:00 UNV Enoxaparin Sodium 30 mg DAILY SC 07/13/24 10:00 07/16/24 10:44 30 MG Micafungin Sodium 100 mg/Sodium Chloride 100 ml @ 100 mls/hr DAILY IV 07/14/24 10:00 07/16/24 10:58 100 MLS/HR Dexmedetomidine HCl 400 mcg/ Dextrose 100 ml @ 4.935 mls/ hr [id number] IV 07/13/24 10:15 07/16/24 05:41 7.403 MLS/HR Labetalol HCl 10 mg Q2HPRN PRN IV 07/14/24 08:45 Nystatin 5 ml QID MT 07/14/24 12:00 07/16/24 12:14 5 ML Enteral Nutritional Formula 1,000 ml 50ML/HR GT 07/15/24 07:15 07/16/24 00:18 1,000 ML Amlodipine Besylate 10 mg DAILY GT 07/15/24 10:00 07/16/24 10:46 10 MG Albuterol 2.5 mg Q6HR NEB 07/15/24 12:00 07/16/24 11:35 2.5 MG Ipratropium [place] 0.5 mg Q6HR NEB 07/15/24 12:00 07/16/24 11:35 0.5 MG Metoclopramide HCl 5 mg Q8HR GT 07/15/24 07:38 07/16/24 05:42 5 MG Epoetin Julito-epbx 4,000 unit TUTHSA@2100 ID 07/16/24 21:00 objective GENERAL: Intubated on ventilator. LUNGS: Decreased breath sounds. CARDIOVASCULAR: Heart sounds are good. ABDOMEN: Soft. laboratory and microbiology Laboratory Tests 07/16/24 03:30 Test 07/16/24 03:30 Range/Units Serum Glucose 108 H 74-106 mg/dL Problem List Acute hypoxic respiratory failure due to aspiration pneumonia/aspiration pneumonitis. Aspiration pneumonia. Intractable vomiting. Shock, septic possible. Symptomatic cholelithiasis possible. Chronic kidney disease. Hypokalemia. Chronic anemia. History of left kidney mass status post nephrectomy 2021 [facility]. Hypertension. Diverticulosis. Fatty liver. Persisting constipation. Elevated troponin. Episode of SVT. Assessment/Plan Continued all current supportive medical care. Lipitor. IV antibiotics as ordered. DVT and GI prophylactics. IV Hydralazine for SBP >170. Morphine for pain management. Vasopressors for hemodynamic support. Additional plan as per the hospital course. Critical care time of 45 minutes provided to include time spent evaluation of patient at bedside, when appropriate patient/family education for diagnosis, treatment plan, review of pertinent medical information and discussion of care with specialty providers and PCP. Mechanical ventilator parameters, treatment and adjustments have personally been reviewed by me and treatment plan by extension clerk has also been reviewed. Dietary Evaluation Review Comments: Continue current plan of care Expected Outcomes/Goals: Pt will meet >75% estimated needs Fu 3-5 days Plan discussed with: Other MARÍA MIGUEL MD Jul 16, 2024 13:00
[2024-07-17] VITALS (80 sets, daily range): BP systolic 118–167; BP diastolic 61–124; PULSE 83–116; RESP 13–29; TEMP 97.9–98.2; O2SAT 95–100
[2024-07-17 04:16] LABS: Hematocrit 28.2 % (36.0-46.0); Hemoglobin 9.5 g/dL (12.2-16.2); Mean Corpuscular Hemoglobin 29.2 pg (28.0-32.0); Mean Corpuscular Hgb Conc. 33.8 g/dL (32.0-36.0); Mean Corpuscular Volume 86.3 fL (80.0-100.0); Platelet Count (auto) 212 10^3/uL (140-450); Red Blood Cells 3.27 10^6/uL (4.0-5.20); Red Cell Distribution Width 15.7 % (11.8-14.3); White Blood Cell 6.9 10^3/uL (4.4-10.8)
[2024-07-17 04:21] LABS: Basophils % (manual) 0 (0.0-2.0); Blast Cells 0; Eosinophils % (manual) 0 (0-7); Metamyelocytes % 0; Monocytes % (manual) 0 (0-12); Myelocytes % 0; Promyelocytes % 0; Reactive Lymphocytes 0
[2024-07-17 04:22] LABS: Potassium 3.6 mmol/L (3.5-5.1); Sodium 143 mmol/L (136-145)
[2024-07-17 04:23] LABS: Anion Gap 13 (5-15); Calcium 9.8 mg/dL (8.7-10.4); Carbon Dioxide 22 mmol/L (20-31)
[2024-07-17 04:25] LABS: Chloride 108 mmol/L (98-107)
[2024-07-17 04:28] LABS: BUN/Creatinine Ratio 23.8 (10.0-20.0); Glucose 95 mg/dL (74-106)
[2024-07-17 04:33] LABS: Blood Urea Nitrogen 63 mg/dL (9-23)
--- NOTE | 2024-07-17 05:18 | DVH ---
INDICATION: pna TECHNIQUE: Frontal view of the chest. COMPARISON: XY CHEST PORTABLE on DOS: 07/16/24, XY CHEST PORTABLE on DOS: 07/15/24, XY CHEST PORTABLE on DOS: 07/14/24, XY CHEST PORTABLE on DOS: 07/13/24, XY CHEST PORTABLE on DOS: 07/12/24, XY CHEST PORTABLE on DOS: 07/16/24 FINDINGS: LUNGS AND PLEURAL SPACES: Left basilar atelectasis or pneumonia. No pneumothorax. HEART: Unremarkable. No cardiomegaly. MEDIASTINUM: Unremarkable. Normal mediastinal contour. BONES/JOINTS: Unremarkable. No acute fracture. TUBES, LINES AND DEVICES: Stable tubes and lines. IMPRESSION: Left basilar atelectasis or pneumonia.
[2024-07-17 05:31] LABS: Band Neutrophils % (manual) 1; Lymphocytes % (manual) 18 (10.0-50.0)
[2024-07-17 05:32] LABS: Platelet Estimate Adequate
[2024-07-17 05:33] LABS: Target Cell FEW
[2024-07-17 05:35] LABS: Anisocytosis Slight
--- NOTE | 2024-07-17 10:23 | DVHPN2 ---
Subjective Patient following some commands Reviewed: Care Plan, H&P, Labs, Medications, Previous Orders, Radiology Changes from previous H/P or p: No Changes General: Per HPI Objective Vitals Vital Signs Date Time Temp Pulse Resp B/P (MAP) Pulse Ox O2 Delivery O2 Flow Rate FiO2 07/17/24 06:57 96 18 100 07/17/24 06:51 Nasal Cannula 2.0 07/17/24 06:51 28 07/17/24 06:30 150/81 (104) 07/17/24 04:00 97.9 97.9 Intake/Output Intake and Output 07/17/24 07:00 Intake Total 509.42 ml Output Total 1375 ml Balance -865.58 ml Intake Oral 120 ml IV Total 389.42 ml Tube Feeding 0 ml Output Urine Total 1375 ml # Bowel Movements 7 General Appearance: mild distress, Other (Chemically sedated) HEENT: Atraumatic, PERRLA Lungs: Clear to auscultation, Normal air movement Cardiovascular: Normal S1, Normal S2 Abdomen: Normal bowel sounds, Soft, No tenderness, No hepatospenomegaly Genitourinary: No Apparent Abnormalities (Gastelum catheter) Neuro: Other (Unable to assess) Skin: Dry, Intact Psych/Mental Status: Other (Unable to assess) Medications Current Medications Medications Dose Ordered Sig/Ginger Route Start Time Stop Time Status Last Admin Dose Admin Atorvastatin Calcium 40 mg HS PO 07/06/24 22:00 07/15/24 21:41 40 MG Gabapentin 400 mg BID PO 07/06/24 22:00 Hold Levothyroxine Sodium 75 mcg QAM@0600 PO 07/07/24 06:00 07/16/24 05:42 75 MCG Montelukast Sodium 10 mg HS PO 07/06/24 22:00 07/15/24 21:41 10 MG Ondansetron HCl 4 mg Q4HP PRN IV 07/06/24 19:00 07/08/24 19:53 4 MG Acetaminophen 650 mg Q6HP PRN PO 07/06/24 19:00 07/14/24 13:01 650 MG Pantoprazole Sodium 40 mg DAILY IV 07/09/24 10:00 07/16/24 10:45 40 MG Docusate Sodium 100 mg BIDPRN PRN PO 07/08/24 12:45 07/09/24 10:25 100 MG Doxycycline Hyclate 100 ml @ 50 mls/hr Q12H IV 07/09/24 15:00 07/17/24 03:54 50 MLS/HR Piperacillin Sod/ Tazobactam Sod 100 ml @ 25 mls/hr Q12H IV 07/09/24 16:00 07/17/24 03:54 25 MLS/HR Hydralazine HCl 10 mg Q6HP PRN IV 07/09/24 18:00 07/14/24 06:52 10 MG Fentanyl Citrate 250 ml @ 2.5 mls/hr Q24H IV 07/09/24 21:15 07/15/24 16:38 2.5 MLS/HR Carbamazepine 200 mg BID PO 07/09/24 22:00 07/16/24 10:45 200 MG Norepinephrine Bitartrate 32 mg/ Sodium Chloride 250 ml @ 0.938 mls/ hr Q24H IV 07/11/24 15:30 07/14/24 20:02 0.938 MLS/HR Diagnostic Test (Pha) 1 strip Q6HR 07/13/24 00:00 07/17/24 05:04 1 STRIP Insulin Human Regular FOLLOW SLIDING SCALE Q6HR SC 07/13/24 00:00 Dextrose 50 ml UD IV 07/13/24 00:00 Enoxaparin Sodium 40 mg DAILY SC 07/13/24 10:00 UNV Enoxaparin Sodium 30 mg DAILY SC 07/13/24 10:00 07/16/24 10:44 30 MG Micafungin Sodium 100 mg/Sodium Chloride 100 ml @ 100 mls/hr DAILY IV 07/14/24 10:00 07/16/24 10:58 100 MLS/HR Dexmedetomidine HCl 400 mcg/ Dextrose 100 ml @ 4.935 mls/ hr [id number] IV 07/13/24 10:15 07/16/24 05:41 7.403 MLS/HR Labetalol HCl 10 mg Q2HPRN PRN IV 07/14/24 08:45 Nystatin 5 ml QID MT 07/14/24 12:00 07/16/24 18:53 5 ML Enteral Nutritional Formula 1,000 ml 50ML/HR GT 07/15/24 07:15 07/16/24 00:18 1,000 ML Amlodipine Besylate 10 mg DAILY GT 07/15/24 10:00 07/16/24 10:46 10 MG Albuterol 2.5 mg Q6HR NEB 07/15/24 12:00 07/17/24 06:51 2.5 MG Ipratropium [place] 0.5 mg Q6HR NEB 07/15/24 12:00 07/17/24 06:51 0.5 MG Metoclopramide HCl 5 mg Q8HR GT 07/15/24 07:38 07/16/24 05:42 5 MG Epoetin Julito-epbx 4,000 unit TUTHSA@2100 [place] 07/16/24 21:00 07/16/24 20:36 4,000 UNIT Laboratory Results Laboratory Tests 07/17/24 03:00 Chemistry Test 07/17/24 03:00 Calcium Level 9.8 mg/dL (8.7-10.4) Urinalysis Test 07/06/24 19:30 Urine Color Colorless (Yellow) Urine Clarity Clear (Clear) Urine pH 5.0 (5.0-9.0) Urine Specific Reader 1.006 (1.001-1.035) Urine Protein Negative (Negative) Urine Ketones Negative (Negative) Urine Blood Negative /uL (Negative) Urine Nitrite Negative (Negative) Urine Bilirubin Negative (Negative) Urine Urobilinogen Normal mg/dL (Negative) Urine Leukocyte Esterase Negative /uL (Negative) Urine RBC <1 /hpf (0 - 4) Urine Microscopic WBC 2 /HPF (0-5) Urine Squamous Epithelial Cells Few /hpf (<5) Urine Bacteria None seen /hpf (None Seen) Urine Glucose Normal mg/dL (Normal) Blood Gas Results Test 07/16/24 13:37 Arterial Blood pH 7.378 (7.350-7.450) FiO2 % 30.0 Microbiology Microbiology Date/Time Source Procedure Growth Status 07/11/24 12:00 Bronchial Washings Gram Stain - Final Resulted 07/11/24 12:00 Respiratory Culture - Preliminary Presumptive Zuleyka albicans Resulted 07/09/24 15:25 Trachea Gram Stain - Final Complete 07/09/24 15:25 Trachea Respiratory Culture - Final Complete Labs and/or images reviewed: Labs reviewed by me, Image(s) reviewed by me Assessment/Plan Assessment/Plan Impression: -abdominal pain, questionably secondary to cholelithiasis versus constipation -constipation -cholelithiasis -obesity -acute respiratory failure with mechanical ventilation -multifocal pneumonia, probable aspiration etiology -acute kidney injury, vasomotor nephropathy, underlying CKD stage 4 -hyperchloremic metabolic acidosis -septic shock -anemia of chronic disease Plan: Events: Extubated yesterday. Patient was alert and following commands. -swallow evaluation -physical therapy consultation -continue doxycycline, Zosyn, and Micafungin -nystatin swish and swallow -repeat labs, chest x-ray, ABG in a.m. Critical care time spent with patient discussing and formulating plan of care: 40 minutes. This does not include time spent performing procedures. This medical document was created using an electronic medical record system with [employer] dictation system. Although this document has been carefully reviewed, there may still be some phonetic and typographical errors. These areas are purely typographical due to imperfections of the software programs, and do not reflect any compromise in the patient's medical care. Plan discussed with: Patient, Other (RN) My Orders Orders - DIANE FRANKLIN NP Procedure Category Date Status Time Abg W/ Co-Ox RT 07/16/24 Logged 13:30 Date of Service: Jul 17, 2024 Billing Provider: DIANE FRANKLIN NP Common Visit Codes: 56569-[id number] CARE 30-74 MIN DIANE FRANKLIN NP Jul 17, 2024 10:23
[2024-07-17 11:07] LABS: Vitamin D-2 25-Hydroxy 2.1 ng/mL (.)
--- NOTE | 2024-07-17 14:43 | DVHPN2 ---
Progress Note Date Seen: Jul 17, 2024 Medical Necessity Reason Pt with a Central, PICC or Fol: Yes The following are medically ne: Central Line, South Catheter Reason for south catheter: Strict I&O Subjective Patient reports: Other (intubated) Review of Systems: Deferred Objective vital signs Vital Sign Date Time Temp Pulse Resp B/P (MAP) Pulse Ox O2 Delivery O2 Flow Rate FiO2 07/17/24 11:52 89 18 100 07/17/24 11:46 Nasal Cannula* 2 28 07/17/24 10:00 139/77 07/17/24 04:00 97.9 97.9 Total Intake and Output 07/16/24 07/16/24 07/17/24 15:00 23:00 07:00 Intake Total 114.42 ml 295 ml 100 ml Output Total 350 ml 350 ml 675 ml Balance -235.58 ml -55 ml -575 ml medications Current Medications Medications Dose Ordered Sig/Ginger Route Start Time Stop Time Status Last Admin Dose Admin Atorvastatin Calcium 40 mg HS PO 07/06/24 22:00 07/15/24 21:41 40 MG Gabapentin 400 mg BID PO 07/06/24 22:00 Hold Levothyroxine Sodium 75 mcg QAM@0600 PO 07/07/24 06:00 07/16/24 05:42 75 MCG Montelukast Sodium 10 mg HS PO 07/06/24 22:00 07/15/24 21:41 10 MG Ondansetron HCl 4 mg Q4HP PRN IV 07/06/24 19:00 07/08/24 19:53 4 MG Acetaminophen 650 mg Q6HP PRN PO 07/06/24 19:00 07/14/24 13:01 650 MG Pantoprazole Sodium 40 mg DAILY IV 07/09/24 10:00 07/17/24 10:21 40 MG Docusate Sodium 100 mg BIDPRN PRN PO 07/08/24 12:45 07/09/24 10:25 100 MG Doxycycline Hyclate 100 ml @ 50 mls/hr Q12H IV 07/09/24 15:00 07/17/24 03:54 50 MLS/HR Piperacillin Sod/ Tazobactam Sod 100 ml @ 25 mls/hr Q12H IV 07/09/24 16:00 07/17/24 03:54 25 MLS/HR Hydralazine HCl 10 mg Q6HP PRN IV 07/09/24 18:00 07/14/24 06:52 10 MG Fentanyl Citrate 250 ml @ 2.5 mls/hr Q24H IV 07/09/24 21:15 07/15/24 16:38 2.5 MLS/HR Carbamazepine 200 mg BID PO 07/09/24 22:00 07/16/24 10:45 200 MG Diagnostic Test (Pha) 1 strip Q6HR 07/13/24 00:00 07/17/24 05:04 1 STRIP Insulin Human Regular FOLLOW SLIDING SCALE Q6HR SC 07/13/24 00:00 Dextrose 50 ml UD IV 07/13/24 00:00 Enoxaparin Sodium 40 mg DAILY SC 07/13/24 10:00 UNV Enoxaparin Sodium 30 mg DAILY SC 07/13/24 10:00 07/17/24 10:21 30 MG Micafungin Sodium 100 mg/Sodium Chloride 100 ml @ 100 mls/hr DAILY IV 07/14/24 10:00 07/17/24 10:21 100 MLS/HR Dexmedetomidine HCl 400 mcg/ Dextrose 100 ml @ 4.935 mls/ hr [id number] IV 07/13/24 10:15 07/16/24 05:41 7.403 MLS/HR Labetalol HCl 10 mg Q2HPRN PRN IV 07/14/24 08:45 Nystatin 5 ml QID MT 07/14/24 12:00 07/16/24 18:53 5 ML Amlodipine Besylate 10 mg DAILY GT 07/15/24 10:00 07/16/24 10:46 10 MG Albuterol 2.5 mg Q6HR NEB 07/15/24 12:00 07/17/24 11:46 2.5 MG Ipratropium [place] 0.5 mg Q6HR NEB 07/15/24 12:00 07/17/24 11:46 0.5 MG Epoetin Julito-epbx 4,000 unit TUTHSA@2100 [place] 07/16/24 21:00 07/16/24 20:36 4,000 UNIT Examination: GENERAL:Abnormal, LUNGS:Abnormal, MSK:Abnormal, NEURO:Abnormal laboratory and microbiology Laboratory Tests 07/17/24 03:00 Test 4/4/25 03:00 Range/Units Serum Glucose 95 74-106 mg/dL Microbiology Date/Time Source Procedure Growth Status 07/11/24 12:00 Bronchial Washings Gram Stain - Final Resulted 07/11/24 12:00 Respiratory Culture - Preliminary Presumptive Zuleyka albicans Resulted 07/09/24 15:25 Trachea Gram Stain - Final Complete 07/09/24 15:25 Trachea Respiratory Culture - Final Complete Problem List/Assessment/Plan Problem List/Assessment/Plan Acute kidney injury hemodynamic CKd 4 ; with solitary kidney s/p nephrectomy abdominal pain, Diverticulosis Cholelithiasis without cholecystitis constipation anemia Acute respiratory failure with multifocal pneumonia Septic shock Constipation with fecal impaction status post enema recs stable renal function I will sign off this case//pls reconsult if renal parameters change Plan discussed with: Other Dietary Evaluation Review Comments: Continue current plan of care Expected Outcomes/Goals: Pt will meet >75% estimated needs Fu 3-5 days KYLIE ROMERO MD Jul 17, 2024 14:43
--- NOTE | 2024-07-17 15:12 | DVHPN2 ---
Progress Note - Dictate Date Seen: Jul 17, 2024 Medical Necessity Reason Pt with a Central, PICC or Fol: Yes The following are medically ne: Central Line, South Catheter Reason for south catheter: Strict I&O Subjective Ms. Randolph is a 74 years old female with a history of hypertension, dyslipidemia, congestive heart failure, asthma, solitary kidney, obesity, she came to the [facility] on 07/06/2024 with a chief company of right flank pain for three days, in the hospital, the patient was found to have constipation. I have seen and examined the patient, I have discussed with her nurse. She was extubated, physically doing fine, oriented almost x3, but what her talked about is not appropriate with her current hospital stay Sputum culture, 07/11/2024: Principal to [place] albicans Urinalysis, 07/06/2024: WBC: 2, urine leukocyte esterase: Negative ABG, 07/09/2024: Acidosis 07/10/2024: Metabolic acidosis, 07/12/2024: Metabolic acidosis, 07/13/2024: Metabolic acidosis WBC/HB/PLT/MCV, 07/14/2024: 6.1/9.1/128/87.1 BUN/CR, 07/06/2024: 32/2.63, 07/09/24: 34/3.44, 07/12/2024: 32/2.81, 07/14/2024: 46/2.7, 07/15/2024: 54/2.7 Liver function tests, 07/09/2024: Unremarkable Vitamin B12, 07/14/2024: 2949 TSH, 07/14/2024: 2.19 Chest x-ray, 07/14/2024: 1. Left basilar atelectasis or pneumonia. 2. Pulmonary venous congestion. CT head, 07/10/2024: Punctate focus of hypodensity over the left thalamus with hypodense focus of the right cerebellar which may represent lacunar infarct of unknown chronicity. Otherwise, no evidence for acute intracranial abnormalities. If symptoms persist, MRI may be considered for further evaluation. CT head, 07/14/2024: 1. No evidence of acute intracranial abnormality. 2. Mild white matter disease, nonspecific but most commonly associated with sequelae of chronic microvascular ischemic changes. 3. Acute sinusitis. MRI head, 07/15/2024: No evidence of acute intracranial abnormalities. vital signs Vital Sign Date Time Temp Pulse Resp B/P (MAP) Pulse Ox O2 Delivery O2 Flow Rate FiO2 07/17/24 12:00 17 99 Nasal Cannula* 3 32 07/17/24 12:00 92 07/17/24 10:00 139/77 07/17/24 04:00 97.9 97.9 Total Intake and Output 07/16/24 07/16/24 07/17/24 15:00 23:00 07:00 Intake Total 114.42 ml 295 ml 100 ml Output Total 350 ml 350 ml 675 ml Balance -235.58 ml -55 ml -575 ml medications Current Medications Medications Dose Ordered Sig/Ginger Route Start Time Stop Time Status Last Admin Dose Admin Atorvastatin Calcium 40 mg HS PO 07/06/24 22:00 07/15/24 21:41 40 MG Gabapentin 400 mg BID PO 07/06/24 22:00 Hold Levothyroxine Sodium 75 mcg QAM@0600 PO 07/07/24 06:00 07/16/24 05:42 75 MCG Montelukast Sodium 10 mg HS PO 07/06/24 22:00 07/15/24 21:41 10 MG Ondansetron HCl 4 mg Q4HP PRN IV 07/06/24 19:00 07/08/24 19:53 4 MG Acetaminophen 650 mg Q6HP PRN PO 07/06/24 19:00 07/14/24 13:01 650 MG Pantoprazole Sodium 40 mg DAILY IV 07/09/24 10:00 07/17/24 10:21 40 MG Docusate Sodium 100 mg BIDPRN PRN PO 07/08/24 12:45 07/09/24 10:25 100 MG Doxycycline Hyclate 100 ml @ 50 mls/hr Q12H IV 07/09/24 15:00 07/17/24 14:55 50 MLS/HR Piperacillin Sod/ Tazobactam Sod 100 ml @ 25 mls/hr Q12H IV 07/09/24 16:00 07/17/24 03:54 25 MLS/HR Hydralazine HCl 10 mg Q6HP PRN IV 07/09/24 18:00 07/14/24 06:52 10 MG Fentanyl Citrate 250 ml @ 2.5 mls/hr Q24H IV 07/09/24 21:15 07/15/24 16:38 2.5 MLS/HR Carbamazepine 200 mg BID PO 07/09/24 22:00 07/16/24 10:45 200 MG Diagnostic Test (Pha) 1 strip Q6HR 07/13/24 00:00 07/17/24 12:00 1 STRIP Insulin Human Regular FOLLOW SLIDING SCALE Q6HR SC 07/13/24 00:00 Dextrose 50 ml UD IV 07/13/24 00:00 Enoxaparin Sodium 40 mg DAILY SC 07/13/24 10:00 UNV Enoxaparin Sodium 30 mg DAILY SC 07/13/24 10:00 07/17/24 10:21 30 MG Micafungin Sodium 100 mg/Sodium Chloride 100 ml @ 100 mls/hr DAILY IV 07/14/24 10:00 07/17/24 10:21 100 MLS/HR Dexmedetomidine HCl 400 mcg/ Dextrose 100 ml @ 4.935 mls/ hr [id number] IV 07/13/24 10:15 07/16/24 05:41 7.403 MLS/HR Labetalol HCl 10 mg Q2HPRN PRN IV 07/14/24 08:45 Nystatin 5 ml QID MT 07/14/24 12:00 07/16/24 18:53 5 ML Amlodipine Besylate 10 mg DAILY GT 07/15/24 10:00 07/16/24 10:46 10 MG Albuterol 2.5 mg Q6HR NEB 07/15/24 12:00 07/17/24 11:46 2.5 MG Ipratropium [place] 0.5 mg Q6HR NEB 07/15/24 12:00 07/17/24 11:46 0.5 MG Epoetin Julito-epbx 4,000 unit TUTHSA@2100 SC 07/16/24 21:00 07/16/24 20:36 4,000 UNIT objective The patient is well-nourished and well-developed with no distress. MENTAL STATUS: Subjective CRANIAL NERVES: Pupils are equal round and reactive to light briskly, normal external eye movement, normal sensation and motor examination in the lateral trigeminal nerve distribution, no facial weakness. SENSATION: Okay to pinprick and light touch MOTOR: Normal tone in the upper and lower extremity. Normal muscle bulk. No fasciculations. moves the arms and legs REFLEXES: Deep tendon reflexes are symmetrical. No pathological reflexes. CEREBELLAR/COORDINATION: Deferred GAIT/STATION: deferred laboratory and microbiology Laboratory Tests 07/17/24 03:00 Test 07/17/24 03:00 Range/Units Serum Glucose 95 74-106 mg/dL Problem List Altered mental status/Coma improving Hypoxic encephalopathy Metabolic encephalopathy Toxic encephalopathy Acute respiratory failure, resolved Pneumonia Sepsis/septic shock Acute kidney failure Assessment/Plan Monitoring Supportive treatment Follow-up labs Oxygen IV antibiotics Pulmonology on case Cardiology on case GI on case Nephrology on case Surgery on case More recommendation per clinical course This medical document was created using an electronic medical record system with [employer] computerized dictation system. Although this document has been carefully reviewed, there may still be some phonetic and typographical errors. These areas are purely typographical due to imperfections of the software programs, and do not reflect any compromise in the patient's medical care. Prognosis poor Dietary Evaluation Review Comments: Continue current plan of care Expected Outcomes/Goals: Pt will meet >75% estimated needs Fu 3-5 days Plan discussed with: Other GISELA WISE MD Jul 17, 2024 15:12
--- NOTE | 2024-07-17 17:28 | DVHPN2 ---
Progress Note - Dictate Date Seen: Jul 17, 2024 Medical Necessity Reason Pt with a Central, PICC or Fol: Yes The following are medically ne: Central Line, South Catheter Reason for south catheter: Strict I&O Subjective Patient seen in ICU 110 Patient was extubated yesterday She is awake and alert and communicating appropriately Patient has multi focal pneumonia on IV antibiotics Patient was being treated with lactulose and MiraLax for her constipation; p atient is now having daily bowel movements vital signs Vital Sign Date Time Temp Pulse Resp B/P (MAP) Pulse Ox O2 Delivery O2 Flow Rate FiO2 07/17/24 16:30 92 20 141/75 (97) 98 07/17/24 16:00 98.1 98.1 07/17/24 16:00 Nasal Cannula* 3 32 Total Intake and Output 07/16/24 07/16/24 07/17/24 15:00 23:00 07:00 Intake Total 114.42 ml 295 ml 100 ml Output Total 350 ml 350 ml 675 ml Balance -235.58 ml -55 ml -575 ml medications Current Medications Medications Dose Ordered Sig/Ginger Route Start Time Stop Time Status Last Admin Dose Admin Atorvastatin Calcium 40 mg HS PO 07/06/24 22:00 07/15/24 21:41 40 MG Gabapentin 400 mg BID PO 07/06/24 22:00 Hold Levothyroxine Sodium 75 mcg QAM@0600 PO 07/07/24 06:00 07/16/24 05:42 75 MCG Montelukast Sodium 10 mg HS PO 07/06/24 22:00 07/15/24 21:41 10 MG Ondansetron HCl 4 mg Q4HP PRN IV 07/06/24 19:00 07/08/24 19:53 4 MG Acetaminophen 650 mg Q6HP PRN PO 07/06/24 19:00 07/14/24 13:01 650 MG Pantoprazole Sodium 40 mg DAILY IV 07/09/24 10:00 07/17/24 10:21 40 MG Docusate Sodium 100 mg BIDPRN PRN PO 07/08/24 12:45 07/09/24 10:25 100 MG Doxycycline Hyclate 100 ml @ 50 mls/hr Q12H IV 07/09/24 15:00 07/17/24 14:55 50 MLS/HR Piperacillin Sod/ Tazobactam Sod 100 ml @ 25 mls/hr Q12H IV 07/09/24 16:00 07/17/24 03:54 25 MLS/HR Hydralazine HCl 10 mg Q6HP PRN IV 07/09/24 18:00 07/14/24 06:52 10 MG Fentanyl Citrate 250 ml @ 2.5 mls/hr Q24H IV 07/09/24 21:15 07/15/24 16:38 2.5 MLS/HR Carbamazepine 200 mg BID PO 07/09/24 22:00 07/16/24 10:45 200 MG Diagnostic Test (Pha) 1 strip Q6HR 07/13/24 00:00 07/17/24 12:00 1 STRIP Insulin Human Regular FOLLOW SLIDING SCALE Q6HR SC 07/13/24 00:00 Dextrose 50 ml UD IV 07/13/24 00:00 Enoxaparin Sodium 40 mg DAILY SC 07/13/24 10:00 UNV Enoxaparin Sodium 30 mg DAILY SC 07/13/24 10:00 07/17/24 10:21 30 MG Micafungin Sodium 100 mg/Sodium Chloride 100 ml @ 100 mls/hr DAILY IV 07/14/24 10:00 07/17/24 10:21 100 MLS/HR Dexmedetomidine HCl 400 mcg/ Dextrose 100 ml @ 4.935 mls/ hr [id number] IV 07/13/24 10:15 07/16/24 05:41 7.403 MLS/HR Labetalol HCl 10 mg Q2HPRN PRN IV 07/14/24 08:45 Nystatin 5 ml QID MT 07/14/24 12:00 07/16/24 18:53 5 ML Amlodipine Besylate 10 mg DAILY GT 07/15/24 10:00 07/16/24 10:46 10 MG Albuterol 2.5 mg Q6HR NEB 07/15/24 12:00 07/17/24 11:46 2.5 MG Ipratropium [place] 0.5 mg Q6HR NEB 07/15/24 12:00 07/17/24 11:46 0.5 MG Epoetin Julito-epbx 4,000 unit TUTHSA@2100 SC 07/16/24 21:00 07/16/24 20:36 4,000 UNIT objective GEN: intubated sedated HEENT: NC/AT; MMM. CV: RRR, no m/r/g. LUNGS: Decreased breath sound ABD: Hypoactive bowel sounds, no rigidity no distention, soft EXT: skin Warm, well perfused. no rashes. No clubbing, cyanosis, or edema. laboratory and microbiology Laboratory Tests 07/17/24 03:00 Test 07/17/24 03:00 Range/Units Serum Glucose 95 74-106 mg/dL Problems(with codes): (1) Multifocal pneumonia (2) N&V (nausea and vomiting) (3) Cholelithiasis (4) Constipation (5) Abdominal pain (6) Osteoarthritis Prognosis Plan Patient will get a swallow evaluation before resuming diet Physical therapy Out of bed to chair Supportive care IV antibiotics Dietary Evaluation Review Comments: Continue current plan of care Expected Outcomes/Goals: Pt will meet >75% estimated needs Fu 3-5 days Plan discussed with: Patient, Other (ICU Nurse Lissa) ASHLEIGH VILLANUEVA MD Jul 17, 2024 17:28
--- NOTE | 2024-07-17 23:30 | DVHPN2 ---
Progress Note - Dictate Date Seen: Jul 17, 2024 Medical Necessity Reason Pt with a Central, PICC or Fol: Yes The following are medically ne: Central Line, South Catheter Reason for south catheter: Strict I&O Subjective Patient was seen and evaluated in follow up in the ICU. Patient was successfully extubated yesterday evening. She is on 2 LPM NC. Patient is having loose BMs. HGB 9.5, HCT 28.2, CL 108, BUN 63, LOCKSTITCH SHOULDER JOINER 2.65. Chest x-ray shows left basilar atelectasis or pneumonia. vital signs Vital Sign Date Time Temp Pulse Resp B/P (MAP) Pulse Ox O2 Delivery O2 Flow Rate FiO2 07/17/24 10:00 139/77 07/17/24 06:57 96 18 100 07/17/24 06:51 Nasal Cannula 2.0 07/17/24 06:51 28 07/17/24 04:00 97.9 97.9 Total Intake and Output 07/16/24 07/16/24 07/17/24 15:00 23:00 07:00 Intake Total 114.42 ml 295 ml 100 ml Output Total 350 ml 350 ml 675 ml Balance -235.58 ml -55 ml -575 ml medications Current Medications Medications Dose Ordered Sig/Ginger Route Start Time Stop Time Status Last Admin Dose Admin Atorvastatin Calcium 40 mg HS PO 07/06/24 22:00 07/15/24 21:41 40 MG Gabapentin 400 mg BID PO 07/06/24 22:00 Hold Levothyroxine Sodium 75 mcg QAM@0600 PO 07/07/24 06:00 07/16/24 05:42 75 MCG Montelukast Sodium 10 mg HS PO 07/06/24 22:00 07/15/24 21:41 10 MG Ondansetron HCl 4 mg Q4HP PRN IV 07/06/24 19:00 07/08/24 19:53 4 MG Acetaminophen 650 mg Q6HP PRN PO 07/06/24 19:00 07/14/24 13:01 650 MG Pantoprazole Sodium 40 mg DAILY IV 07/09/24 10:00 07/17/24 10:21 40 MG Docusate Sodium 100 mg BIDPRN PRN PO 07/08/24 12:45 07/09/24 10:25 100 MG Doxycycline Hyclate 100 ml @ 50 mls/hr Q12H IV 07/09/24 15:00 07/17/24 03:54 50 MLS/HR Piperacillin Sod/ Tazobactam Sod 100 ml @ 25 mls/hr Q12H IV 07/09/24 16:00 07/17/24 03:54 25 MLS/HR Hydralazine HCl 10 mg Q6HP PRN IV 07/09/24 18:00 07/14/24 06:52 10 MG Fentanyl Citrate 250 ml @ 2.5 mls/hr Q24H IV 07/09/24 21:15 07/15/24 16:38 2.5 MLS/HR Carbamazepine 200 mg BID PO 07/09/24 22:00 07/16/24 10:45 200 MG Diagnostic Test (Pha) 1 strip Q6HR 07/13/24 00:00 07/17/24 05:04 1 STRIP Insulin Human Regular FOLLOW SLIDING SCALE Q6HR SC 07/13/24 00:00 Dextrose 50 ml UD IV 07/13/24 00:00 Enoxaparin Sodium 40 mg DAILY SC 07/13/24 10:00 UNV Enoxaparin Sodium 30 mg DAILY SC 07/13/24 10:00 07/17/24 10:21 30 MG Micafungin Sodium 100 mg/Sodium Chloride 100 ml @ 100 mls/hr DAILY IV 07/14/24 10:00 07/17/24 10:21 100 MLS/HR Dexmedetomidine HCl 400 mcg/ Dextrose 100 ml @ 4.935 mls/ hr [id number] IV 07/13/24 10:15 07/16/24 05:41 7.403 MLS/HR Labetalol HCl 10 mg Q2HPRN PRN IV 07/14/24 08:45 Nystatin 5 ml QID MT 07/14/24 12:00 07/16/24 18:53 5 ML Amlodipine Besylate 10 mg DAILY GT 07/15/24 10:00 07/16/24 10:46 10 MG Albuterol 2.5 mg Q6HR NEB 07/15/24 12:00 07/17/24 06:51 2.5 MG Ipratropium [place] 0.5 mg Q6HR NEB 07/15/24 12:00 07/17/24 06:51 0.5 MG Epoetin Julito-epbx 4,000 unit TUTHSA@2100 [place] 07/16/24 21:00 07/16/24 20:36 4,000 UNIT objective GENERAL: Awake, alert, oriented. LUNGS: Decreased breath sounds. CARDIOVASCULAR: Heart sounds are good. ABDOMEN: Soft. laboratory and microbiology Laboratory Tests 07/17/24 03:00 Test 07/17/24 03:00 Range/Units Serum Glucose 95 74-106 mg/dL Problem List Acute hypoxic respiratory failure due to aspiration pneumonia/aspiration pneumonitis. Aspiration pneumonia. Intractable vomiting. Shock, septic possible. Symptomatic cholelithiasis possible. Chronic kidney disease. Hypokalemia. Chronic anemia. History of left kidney mass status post nephrectomy 2021 [facility]. Hypertension. Diverticulosis. Fatty liver. Persisting constipation. Elevated troponin. Episode of SVT. Assessment/Plan Continued all current supportive medical care. Lipitor. IV antibiotics as ordered. DVT and GI prophylactics. IV Hydralazine for SBP >170. Morphine for pain management. Vasopressors for hemodynamic support. Additional plan as per the hospital course. Critical care time of 45 minutes provided to include time spent evaluation of patient at bedside, when appropriate patient/family education for diagnosis, treatment plan, review of pertinent medical information and discussion of care with specialty providers and PCP. Dietary Evaluation Review Comments: Continue current plan of care Expected Outcomes/Goals: Pt will meet >75% estimated needs Fu 3-5 days Plan discussed with: Patient MARÍA MIGUEL MD Jul 17, 2024 11:25
[2024-07-18] VITALS (77 sets, daily range): BP systolic 105–165; BP diastolic 59–106; PULSE 83–103; RESP 10–32; TEMP 97.6–98.9; O2SAT 78–100
[2024-07-18 03:53] LABS: Hematocrit 25.9 % (36.0-46.0); Mean Corpuscular Hgb Conc. 34.7 g/dL (32.0-36.0); Mean Corpuscular Volume 86.3 fL (80.0-100.0); Platelet Count (auto) 228 10^3/uL (140-450); White Blood Cell 6.6 10^3/uL (4.4-10.8)
[2024-07-18 04:01] LABS: Anion Gap 13 (5-15); Carbon Dioxide 22 mmol/L (20-31)
[2024-07-18 04:02] LABS: Band Neutrophils % (manual) 0; Basophils % (manual) 0 (0.0-2.0); Blast Cells 0; Calcium 9.9 mg/dL (8.7-10.4); Eosinophils % (manual) 0 (0-7); Metamyelocytes % 0; Myelocytes % 0; Promyelocytes % 0; Reactive Lymphocytes 0
[2024-07-18 04:07] LABS: BUN/Creatinine Ratio 24.5 (10.0-20.0); Glucose 86 mg/dL (74-106)
[2024-07-18 04:08] LABS: Blood Urea Nitrogen 62 mg/dL (9-23); Chloride 114 mmol/L (98-107); Potassium 3.4 mmol/L (3.5-5.1); Sodium 149 mmol/L (136-145)
[2024-07-18 04:51] LABS: Lymphocytes % (manual) 23 (10.0-50.0); Monocytes % (manual) 12 (0-12)
[2024-07-18 04:52] LABS: Platelet Estimate Adequate
--- NOTE | 2024-07-18 06:08 | DVH ---
CHEST RADIOGRAPH Indication: pna Technique: Single frontal view of the chest was obtained Comparison: XY CHEST PORTABLE on DOS: 07/17/24, XY CHEST PORTABLE on DOS: 07/16/24, XY CHEST PORTABLE on DOS: 07/15/24 IMPRESSION: Heart is stable in size. No sizable effusion or pneumothorax. Right IJ catheter tip in the region of the superior vena cava. No discrete focal airspace opacity.
--- NOTE | 2024-07-18 07:09 | DVHPN2 ---
Subjective Patient denies any symptoms. States she is hungry and thirsty. Reviewed: Care Plan, H&P, Labs, Medications, Previous Orders, Radiology Changes from previous H/P or p: No Changes General: Per HPI Objective Vitals Vital Signs Date Time Temp Pulse Resp B/P (MAP) Pulse Ox O2 Delivery O2 Flow Rate FiO2 07/18/24 06:45 84 18 99 07/18/24 06:23 Nasal Cannula 2.0 07/18/24 06:23 28 07/18/24 04:00 98.0 98.0 Intake/Output Intake and Output 07/18/24 07:00 Intake Total 345 ml Output Total 2050 ml Balance -1705 ml Intake Oral 20 ml IV Total 325 ml Output Urine Total 2050 ml # Bowel Movements 3 General Appearance: Alert, Oriented X3, Cooperative, mild distress HEENT: Atraumatic, PERRLA Lungs: Clear to auscultation, Normal air movement Cardiovascular: Normal S1, Normal S2 Abdomen: Normal bowel sounds, Soft, No tenderness, No hepatospenomegaly Genitourinary: No Apparent Abnormalities (Gastelum catheter) Neuro: Other (Unable to assess) Skin: Dry, Intact Psych/Mental Status: Other (Unable to assess) Medications Current Medications Medications Dose Ordered Sig/Ginger Route Start Time Stop Time Status Last Admin Dose Admin Atorvastatin Calcium 40 mg HS PO 07/06/24 22:00 07/15/24 21:41 40 MG Gabapentin 400 mg BID PO 07/06/24 22:00 Hold Levothyroxine Sodium 75 mcg QAM@0600 PO 07/07/24 06:00 07/16/24 05:42 75 MCG Montelukast Sodium 10 mg HS PO 07/06/24 22:00 07/15/24 21:41 10 MG Ondansetron HCl 4 mg Q4HP PRN IV 07/06/24 19:00 07/18/24 04:15 4 MG Acetaminophen 650 mg Q6HP PRN PO 07/06/24 19:00 07/14/24 13:01 650 MG Pantoprazole Sodium 40 mg DAILY IV 07/09/24 10:00 07/17/24 10:21 40 MG Docusate Sodium 100 mg BIDPRN PRN PO 07/08/24 12:45 07/09/24 10:25 100 MG Doxycycline Hyclate 100 ml @ 50 mls/hr Q12H IV 07/09/24 15:00 07/18/24 03:00 50 MLS/HR Hydralazine HCl 10 mg Q6HP PRN IV 07/09/24 18:00 07/14/24 06:52 10 MG Carbamazepine 200 mg BID PO 07/09/24 22:00 07/16/24 10:45 200 MG Diagnostic Test (Pha) 1 strip Q6HR 07/13/24 00:00 07/18/24 05:48 1 STRIP Insulin Human Regular FOLLOW SLIDING SCALE Q6HR SC 07/13/24 00:00 Dextrose 50 ml UD IV 07/13/24 00:00 Enoxaparin Sodium 40 mg DAILY SC 07/13/24 10:00 UNV Enoxaparin Sodium 30 mg DAILY SC 07/13/24 10:00 07/17/24 10:21 30 MG Micafungin Sodium 100 mg/Sodium Chloride 100 ml @ 100 mls/hr DAILY IV 07/14/24 10:00 07/17/24 10:21 100 MLS/HR Labetalol HCl 10 mg Q2HPRN PRN IV 07/14/24 08:45 Nystatin 5 ml QID MT 07/14/24 12:00 07/18/24 06:29 5 ML Albuterol 2.5 mg Q6HR NEB 07/15/24 12:00 07/18/24 06:21 2.5 MG Ipratropium [place] 0.5 mg Q6HR NEB 07/15/24 12:00 07/18/24 06:21 0.5 MG Epoetin Julito-epbx 4,000 unit TUTHSA@2100 CT 07/16/24 21:00 07/16/24 20:36 4,000 UNIT Amlodipine Besylate 10 mg DAILY PO 07/18/24 10:00 UNV Ceftriaxone Sodium 50 ml @ 100 mls/hr DAILY@09 IV 07/18/24 09:00 UNV Laboratory Results Laboratory Tests 07/18/24 03:21 Chemistry Test 07/18/24 03:21 Calcium Level 9.9 mg/dL (8.7-10.4) Urinalysis Test 07/06/24 19:30 Urine Color Colorless (Yellow) Urine Clarity Clear (Clear) Urine pH 5.0 (5.0-9.0) Urine Specific [place] 1.006 (1.001-1.035) Urine Protein Negative (Negative) Urine Ketones Negative (Negative) Urine Blood Negative /uL (Negative) Urine Nitrite Negative (Negative) Urine Bilirubin Negative (Negative) Urine Urobilinogen Normal mg/dL (Negative) Urine Leukocyte Esterase Negative /uL (Negative) Urine RBC <1 /hpf (0 - 4) Urine Microscopic WBC 2 /HPF (0-5) Urine Squamous Epithelial Cells Few /hpf (<5) Urine Bacteria None seen /hpf (None Seen) Urine Glucose Normal mg/dL (Normal) Microbiology Microbiology Date/Time Source Procedure Growth Status 07/11/24 12:00 Bronchial Washings Gram Stain - Final Resulted 07/11/24 12:00 Respiratory Culture - Preliminary Presumptive [place] albicans Resulted 07/09/24 15:25 Trachea Gram Stain - Final Complete 07/09/24 15:25 Trachea Respiratory Culture - Final Complete Labs and/or images reviewed: Labs reviewed by me, Image(s) reviewed by me Assessment/Plan Assessment/Plan Impression: -abdominal pain, questionably secondary to cholelithiasis versus constipation -constipation -cholelithiasis -obesity -acute respiratory failure with mechanical ventilation -multifocal pneumonia, probable aspiration etiology -acute kidney injury, vasomotor nephropathy, underlying CKD stage 4 -hyperchloremic metabolic acidosis -septic shock -anemia of chronic disease Plan: Events: Pending swallow evaluation and PT consultation. Hypokalemic. -deescalate antibiotic therapy to Rocephin and doxycycline and micafungin -potassium replacement -swallow evaluation -physical therapy consultation -continue doxycycline, Zosyn, and Micafungin -nystatin swish and swallow -transferred to step-down ICU Critical care time spent with patient discussing and formulating plan of care: 40 minutes. This does not include time spent performing procedures. This medical document was created using an electronic medical record system with [employer] dictation system. Although this document has been carefully reviewed, there may still be some phonetic and typographical errors. These areas are purely typographical due to imperfections of the software programs, and do not reflect any compromise in the patient's medical care. Plan discussed with: Patient, Other (RN) My Orders Orders - DIANE FRANKLIN HEARING SPECIALIST Procedure Category Date Status Time St Eval Swallow Funct ST 07/17/24 Logged 45min 15:55 Pt Request For Service PT 07/17/24 Logged 15:58 Amlodipine Tablet PHA 07/18/24 Logged (Norvasc Tablet) 10:00 * Swallow Request ST 07/18/24 Transmitted 07:00 Ceftriaxone 1gm/50ml PHA 07/18/24 Logged D5w (Rocephin) 09:00 Transfer Orders XFER 07/18/24 Transmitted 07:00 D5w 5% (Dextrose 5%) PHA 07/18/24 Logged W/Potassium Chlorid 07:15 Date of Service: Jul 18, 2024 Billing Provider: DIANE FRANKLIN NP Common Visit Codes: 98676-[id number] CARE 30-74 MIN DIANE FRANKLIN NP Jul 18, 2024 07:09
[2024-07-18] MEDS: POTASSIUM CHLORIDE 40 MEQ in D5W 5% 1,000 ML IV SCH (07:15)
--- NOTE | 2024-07-18 09:18 | DVHPN2 ---
Progress Note - Dictate Date Seen: Jul 17, 2024 Medical Necessity Reason Pt with a Central, PICC or Fol: Yes The following are medically ne: Central Line, South Catheter Reason for south catheter: Strict I&O Subjective Patient seen and examined at bedside. Remains on supplemental oxygen Overnight events reviewed. vital signs Vital Sign Date Time Temp Pulse Resp B/P (MAP) Pulse Ox O2 Delivery O2 Flow Rate FiO2 07/18/24 06:45 84 18 99 07/18/24 06:23 Nasal Cannula 2.0 07/18/24 06:23 28 07/18/24 04:00 98.0 98.0 Total Intake and Output 07/17/24 07/17/24 07/18/24 15:00 23:00 07:00 Intake Total 100 ml 150 ml 95 ml Output Total 800 ml 1250 ml Balance 100 ml -650 ml -1155 ml medications Current Medications Medications Dose Ordered Sig/Ginger Route Start Time Stop Time Status Last Admin Dose Admin Atorvastatin Calcium 40 mg HS PO 07/06/24 22:00 07/15/24 21:41 40 MG Gabapentin 400 mg BID PO 07/06/24 22:00 Hold Levothyroxine Sodium 75 mcg QAM@0600 PO 07/07/24 06:00 07/16/24 05:42 75 MCG Montelukast Sodium 10 mg HS PO 07/06/24 22:00 07/15/24 21:41 10 MG Ondansetron HCl 4 mg Q4HP PRN IV 07/06/24 19:00 07/18/24 04:15 4 MG Acetaminophen 650 mg Q6HP PRN PO 07/06/24 19:00 07/14/24 13:01 650 MG Pantoprazole Sodium 40 mg DAILY IV 07/09/24 10:00 07/17/24 10:21 40 MG Docusate Sodium 100 mg BIDPRN PRN PO 07/08/24 12:45 07/09/24 10:25 100 MG Doxycycline Hyclate 100 ml @ 50 mls/hr Q12H IV 07/09/24 15:00 07/18/24 03:00 50 MLS/HR Hydralazine HCl 10 mg Q6HP PRN IV 07/09/24 18:00 07/14/24 06:52 10 MG Carbamazepine 200 mg BID PO 07/09/24 22:00 07/16/24 10:45 200 MG Diagnostic Test (Pha) 1 strip Q6HR 07/13/24 00:00 07/18/24 05:48 1 STRIP Insulin Human Regular FOLLOW SLIDING SCALE Q6HR SC 07/13/24 00:00 Dextrose 50 ml UD IV 07/13/24 00:00 Enoxaparin Sodium 40 mg DAILY SC 07/13/24 10:00 UNV Enoxaparin Sodium 30 mg DAILY SC 07/13/24 10:00 07/17/24 10:21 30 MG Micafungin Sodium 100 mg/Sodium Chloride 100 ml @ 100 mls/hr DAILY IV 07/14/24 10:00 07/17/24 10:21 100 MLS/HR Labetalol HCl 10 mg Q2HPRN PRN IV 07/14/24 08:45 Nystatin 5 ml QID MT 07/14/24 12:00 07/18/24 06:29 5 ML Albuterol 2.5 mg Q6HR NEB 07/15/24 12:00 07/18/24 06:21 2.5 MG Ipratropium [place] 0.5 mg Q6HR [facility] 07/15/24 12:00 07/18/24 06:21 0.5 MG Epoetin Julito-epbx 4,000 unit TUTHSA@2100 SC 07/16/24 21:00 07/16/24 20:36 4,000 UNIT Amlodipine Besylate 10 mg DAILY PO 07/18/24 10:00 Ceftriaxone Sodium 50 ml @ 100 mls/hr DAILY@09 IV 07/18/24 09:00 Potassium Chloride 40 meq/ Dextrose 1,020 ml @ 100 mls/hr [id number] IV 07/18/24 07:15 07/18/24 17:26 objective Gen.: Patient lying in bed in no apparent distress. On supplemental oxygen. Head: Normocephalic, atraumatic. Eyes: EOMI/PERRLA. Ears: Normal hearing. Normal anatomy. Neck/trachea: Trachea midline, supple. Nose: Normal external anatomy. Mouth: Moist mucous membranes. Chest: Decreased air entry bilaterally. No wheezing or rhonchi. Cardiovascular: Positive S1, positive S2. Regular rate and rhythm. Abdomen: Positive bowel sounds in all 4 quadrants. Soft, non-tender, non- distended. : Deferred. Rectal: Deferred. Skin: Warm, dry. Intact. Extremities: 2+ radial pulses bilaterally. No lower extremity edema. Neuro: Awake, alert, oriented x3. No gross motor or sensory deficits. Cranial nerves II through XII intact. Gait not assessed. laboratory and microbiology Laboratory Tests 07/18/24 03:21 Test 07/18/24 03:21 Range/Units Serum Glucose 86 74-106 mg/dL Assessment/Plan Impression: Acute hypoxic respiratory failure Aspiration pneumonia and aspiration pneumonitis Shock Chronic kidney disease Hypokalemia Chronic anemia Elevated troponin. Constipation Events: Remains on supplemental oxygen at 2 LPM NC Taper O2 as tolerated Improving O2 requirements Awake, alert. Patient passed swallow eval Chest x-ray reviewed, shows left basilar atelectasis or pneumonia. Off pressors, hemodynamically stable. Continue antibiotics Continue bronchodilators Continue antifungal Monitor hemoglobin S/p therapeutic bronchoscopy on 07/14/24, cleared secretions Patient tolerated the procedure well. Please see separate procedure note for details. Labs and imaging reviewed. Rest of plan as noted below Plan: S/p extubation on 07/16/24 Continue supplemental oxygen Titrate to keep O2 sats above 90%. Taper O2 as tolerated Continue antibiotics. F/u cultures. Pressors if necessary for hemodynamic support Titrate to keep mean arterial pressure greater than 65 mmHg. Monitor renal function Monitor electrolytes. Supplement as necessary. Monitor ins and outs. Accu-Cheks, ISS PRN. S/p bronchoscopy with RML BAL on 07/11/24 - see separate procedure note for details Follow up BAL cultures - presumptive Zuleyka albicans. GI prophylaxis. DVT prophylaxis. Prognosis: Poor given patient's multiple co-morbidities. Rest of plan per hospitalist and other consultants. Thank you Dr. Bhatia, for allowing me to participate in this patient's care. Further recommendations will depend on the patient's clinical course. Please do not hesitate to contact me if you have any questions or concerns. This medical document was created using an electronic medical record system with [email or web address] system. Although these documentations are being carefully reviewed, there may still be some phonetic and typographical changes. The errors are purely typographical, due to imperfection on the software program, and do not reflect any compromise in the patient's medical care. Dietary Evaluation Review Comments: Continue current plan of care Expected Outcomes/Goals: Pt will meet >75% estimated needs Fu 3-5 days Plan discussed with: Patient, Other (KATHE Alcaraz) ABIMBOLA PAYNE MD Jul 18, 2024 09:18
[2024-07-18 09:56] LABS: Base Excess -4.6 mmol/L (-2.0-3.0)
[2024-07-18] MEDS: cefTRIAXone 1GM/50ML D5W 50 ML IV SCH (10:50)
[2024-07-18] MEDS: amLODIPine BESYLATE 5 MG TAB PO SCH (11:24)
--- NOTE | 2024-07-18 15:41 | DVHPN2 ---
Progress Note - Dictate Date Seen: Jul 18, 2024 Medical Necessity Reason Pt with a Central, PICC or Fol: Yes The following are medically ne: Central Line, South Catheter Reason for south catheter: Strict I&O Subjective Patient was seen and evaluated in follow up in the ICU. Patient is on 2 LPM NC. Patient passed swallow eval this morning. Patient is having episodes of diarrhea. 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 Chest x-ray shows heart is stable in size. vital signs Vital Sign Date Time Temp Pulse Resp B/P (MAP) Pulse Ox O2 Delivery O2 Flow Rate FiO2 07/18/24 08:00 95 22 97 Nasal Cannula* 2 28 07/18/24 06:45 07/18/24 04:00 98.0 98.0 Total Intake and Output 07/17/24 07/17/24 07/18/24 15:00 23:00 07:00 Intake Total 100 ml 150 ml 95 ml Output Total 800 ml 1250 ml Balance 100 ml -650 ml -1155 ml medications Current Medications Medications Dose Ordered Sig/Ginger Route Start Time Stop Time Status Last Admin Dose Admin Atorvastatin Calcium 40 mg HS PO 07/06/24 22:00 07/15/24 21:41 40 MG Gabapentin 400 mg BID PO 07/06/24 22:00 Hold Levothyroxine Sodium 75 mcg QAM@0600 PO 07/07/24 06:00 07/16/24 05:42 75 MCG Montelukast Sodium 10 mg HS PO 07/06/24 22:00 07/15/24 21:41 10 MG Ondansetron HCl 4 mg Q4HP PRN IV 07/06/24 19:00 07/18/24 04:15 4 MG Acetaminophen 650 mg Q6HP PRN PO 07/06/24 19:00 07/14/24 13:01 650 MG Pantoprazole Sodium 40 mg DAILY IV 07/09/24 10:00 07/17/24 10:21 40 MG Docusate Sodium 100 mg BIDPRN PRN PO 07/08/24 12:45 07/09/24 10:25 100 MG Doxycycline Hyclate 100 ml @ 50 mls/hr Q12H IV 07/09/24 15:00 07/18/24 03:00 50 MLS/HR Hydralazine HCl 10 mg Q6HP PRN IV 07/09/24 18:00 07/14/24 06:52 10 MG Carbamazepine 200 mg BID PO 07/09/24 22:00 07/16/24 10:45 200 MG Diagnostic Test (Pha) 1 strip Q6HR 07/13/24 00:00 07/18/24 05:48 1 STRIP Insulin Human Regular FOLLOW SLIDING SCALE Q6HR SC 07/13/24 00:00 Dextrose 50 ml UD IV 07/13/24 00:00 Enoxaparin Sodium 40 mg DAILY SC 07/13/24 10:00 UNV Enoxaparin Sodium 30 mg DAILY SC 07/13/24 10:00 07/17/24 10:21 30 MG Micafungin Sodium 100 mg/Sodium Chloride 100 ml @ 100 mls/hr DAILY IV 07/14/24 10:00 07/17/24 10:21 100 MLS/HR Labetalol HCl 10 mg Q2HPRN PRN IV 07/14/24 08:45 Nystatin 5 ml QID MT 07/14/24 12:00 07/18/24 06:29 5 ML Albuterol 2.5 mg Q6HR NEB 07/15/24 12:00 07/18/24 06:21 2.5 MG Ipratropium [place] 0.5 mg Q6HR [facility] 07/15/24 12:00 07/18/24 06:21 0.5 MG Epoetin Julito-epbx 4,000 unit TUTHSA@2100 [place] 07/16/24 21:00 07/16/24 20:36 4,000 UNIT Amlodipine Besylate 10 mg DAILY PO 07/18/24 10:00 Ceftriaxone Sodium 50 ml @ 100 mls/hr DAILY@09 IV 07/18/24 09:00 Potassium Chloride 40 meq/ Dextrose 1,020 ml @ 100 mls/hr [id number] IV 07/18/24 07:15 07/18/24 17:26 objective GENERAL: Awake, alert, oriented. LUNGS: Decreased breath sounds. CARDIOVASCULAR: Heart sounds are good. ABDOMEN: Soft. laboratory and microbiology Laboratory Tests 07/18/24 03:21 Test 07/18/24 03:21 Range/Units Serum Glucose 86 74-106 mg/dL Problem List Acute hypoxic respiratory failure due to aspiration pneumonia/aspiration pneumonitis. Aspiration pneumonia. Intractable vomiting. Shock, septic possible. Symptomatic cholelithiasis possible. Chronic kidney disease. Hypokalemia. Chronic anemia. History of left kidney mass status post nephrectomy 2021 [facility]. Hypertension. Diverticulosis. Fatty liver. Persisting constipation. Elevated troponin. Episode of SVT. Assessment/Plan Continued all current supportive medical care. Amlodipine, Labetalol. Lipitor. IV antibiotics as ordered. DVT and GI prophylactics. IV Hydralazine for SBP >170. Additional plan as per the hospital course. Critical care time of 45 minutes provided to include time spent evaluation of patient at bedside, when appropriate patient/family education for diagnosis, treatment plan, review of pertinent medical information and discussion of care with specialty providers and PCP. Dietary Evaluation Review Comments: Continue current plan of care Expected Outcomes/Goals: Pt will meet >75% estimated needs Fu 3-5 days Plan discussed with: Patient MARÍA MIGUEL MD Jul 18, 2024 11:21
--- NOTE | 2024-07-18 19:40 | DVHPN2 ---
Progress Note - Dictate Date Seen: Jul 18, 2024 Medical Necessity Reason Pt with a Central, PICC or Fol: Yes The following are medically ne: Central Line, South Catheter Reason for south catheter: Strict I&O Subjective Patient seen and examined at bedside. Remains on supplemental oxygen Overnight events reviewed. vital signs Vital Sign Date Time Temp Pulse Resp B/P (MAP) Pulse Ox O2 Delivery O2 Flow Rate FiO2 07/18/24 18:46 103 17 109/62 (78) 96 07/18/24 18:00 Nasal Cannula* 1 07/18/24 16:16 97.6 97.6 Total Intake and Output 07/17/24 07/17/24 07/18/24 15:00 23:00 07:00 Intake Total 100 ml 150 ml 95 ml Output Total 800 ml 1250 ml Balance 100 ml -650 ml -1155 ml medications Current Medications Medications Dose Ordered Sig/Ginger Route Start Time Stop Time Status Last Admin Dose Admin Atorvastatin Calcium 40 mg HS PO 07/06/24 22:00 07/15/24 21:41 40 MG Gabapentin 400 mg BID PO 07/06/24 22:00 Hold Levothyroxine Sodium 75 mcg QAM@0600 PO 07/07/24 06:00 07/16/24 05:42 75 MCG Montelukast Sodium 10 mg HS PO 07/06/24 22:00 07/15/24 21:41 10 MG Ondansetron HCl 4 mg Q4HP PRN IV 07/06/24 19:00 07/18/24 04:15 4 MG Acetaminophen 650 mg Q6HP PRN PO 07/06/24 19:00 07/14/24 13:01 650 MG Pantoprazole Sodium 40 mg DAILY IV 07/09/24 10:00 07/18/24 11:22 40 MG Docusate Sodium 100 mg BIDPRN PRN PO 07/08/24 12:45 07/09/24 10:25 100 MG Doxycycline Hyclate 100 ml @ 50 mls/hr Q12H IV 07/09/24 15:00 07/18/24 15:27 50 MLS/HR Hydralazine HCl 10 mg Q6HP PRN IV 07/09/24 18:00 07/14/24 06:52 10 MG Carbamazepine 200 mg BID PO 07/09/24 22:00 07/18/24 10:00 200 MG Diagnostic Test (Pha) 1 strip Q6HR 07/13/24 00:00 07/18/24 18:37 1 STRIP Insulin Human Regular FOLLOW SLIDING SCALE Q6HR SC 07/13/24 00:00 Dextrose 50 ml UD IV 07/13/24 00:00 Enoxaparin Sodium 40 mg DAILY SC 07/13/24 10:00 UNV Enoxaparin Sodium 30 mg DAILY SC 07/13/24 10:00 07/18/24 11:23 30 MG Micafungin Sodium 100 mg/Sodium Chloride 100 ml @ 100 mls/hr DAILY IV 07/14/24 10:00 07/18/24 12:03 100 MLS/HR Labetalol HCl 10 mg Q2HPRN PRN IV 07/14/24 08:45 Nystatin 5 ml QID MT 07/14/24 12:00 07/18/24 18:32 5 ML Albuterol 2.5 mg Q6HR NEB 07/15/24 12:00 07/18/24 11:37 2.5 MG Ipratropium [place] 0.5 mg Q6HR NEB 07/15/24 12:00 07/18/24 11:37 0.5 MG Epoetin Julito-epbx 4,000 unit TUTHSA@2100 SC 07/16/24 21:00 07/16/24 20:36 4,000 UNIT Amlodipine Besylate 10 mg DAILY PO 07/18/24 10:00 07/18/24 11:24 10 MG Ceftriaxone Sodium 50 ml @ 100 mls/hr DAILY@09 IV 07/18/24 09:00 07/18/24 10:50 100 MLS/HR objective Gen.: Patient lying in bed in no apparent distress. On supplemental oxygen. Head: Normocephalic, atraumatic. Eyes: EOMI/PERRLA. Ears: Normal hearing. Normal anatomy. Neck/trachea: Trachea midline, supple. Nose: Normal external anatomy. Mouth: Moist mucous membranes. Chest: Decreased air entry bilaterally. No wheezing or rhonchi. Cardiovascular: Positive S1, positive S2. Regular rate and rhythm. Abdomen: Positive bowel sounds in all 4 quadrants. Soft, non-tender, non- distended. : Deferred. Rectal: Deferred. Skin: Warm, dry. Intact. Extremities: 2+ radial pulses bilaterally. No lower extremity edema. Neuro: Awake, alert, oriented x3. No gross motor or sensory deficits. Cranial nerves II through XII intact. Gait not assessed. laboratory and microbiology Laboratory Tests 07/18/24 03:21 Test 07/18/24 03:21 Range/Units Serum Glucose 86 74-106 mg/dL Assessment/Plan Impression: Acute hypoxic respiratory failure Aspiration pneumonia and aspiration pneumonitis Shock Chronic kidney disease Hypokalemia Chronic anemia Elevated troponin. Constipation Events: Remains on supplemental oxygen at 2 LPM NC Taper O2 as tolerated Awake, alert. Patient passed swallow eval Chest x-ray reveals no acute opacities Off pressors, hemodynamically stable. Continue antibiotics Continue bronchodilators Continue antifungal Monitor hemoglobin Physical therapy Monitor renal function Monitor electrolytes. Supplement as necessary. Potassium supplementation S/p therapeutic bronchoscopy on 07/14/24, cleared secretions Patient tolerated the procedure well. Please see separate procedure note for details. Labs and imaging reviewed. Rest of plan as noted below Plan: S/p extubation on 07/16/24 Continue supplemental oxygen Titrate to keep O2 sats above 90%. Taper O2 as tolerated Continue antibiotics. F/u cultures. Pressors if necessary for hemodynamic support Titrate to keep mean arterial pressure greater than 65 mmHg. Monitor renal function Monitor electrolytes. Supplement as necessary. Monitor ins and outs. Accu-Cheks, ISS PRN. S/p bronchoscopy with RML BAL on 07/11/24 - see separate procedure note for details Follow up BAL cultures - presumptive Zuleyka albicans. GI prophylaxis. DVT prophylaxis. Prognosis: Poor given patient's multiple co-morbidities. Rest of plan per hospitalist and other consultants. Thank you Dr. Bhatia, for allowing me to participate in this patient's care. Further recommendations will depend on the patient's clinical course. Please do not hesitate to contact me if you have any questions or concerns. This medical document was created using an electronic medical record system with [employer] dictation system. Although these documentations are being carefully reviewed, there may still be some phonetic and typographical changes. The errors are purely typographical, due to imperfection on the software program, and do not reflect any compromise in the patient's medical care. Dietary Evaluation Review Comments: Continue current plan of care Expected Outcomes/Goals: Pt will meet >75% estimated needs Fu 3-5 days Plan discussed with: Patient, Other (KATHE Moreno) ABIMBOLA PAYNE MD Jul 18, 2024 19:40
[2024-07-19] VITALS (36 sets, daily range): BP systolic 104–145; BP diastolic 68–94; PULSE 74–105; RESP 11–21; TEMP 97.6–99.2; O2SAT 84–100
[2024-07-19 05:22] LABS: Hemoglobin 8.2 g/dL (12.2-16.2)
[2024-07-19 05:24] LABS: Mean Corpuscular Hemoglobin 29.8 pg (28.0-32.0); Mean Corpuscular Hgb Conc. 34.1 g/dL (32.0-36.0); Mean Corpuscular Volume 87.5 fL (80.0-100.0); Platelet Count (auto) 247 10^3/uL (140-450); Red Blood Cells 2.75 10^6/uL (4.0-5.20); Red Cell Distribution Width 16.1 % (11.8-14.3); White Blood Cell 6.9 10^3/uL (4.4-10.8)
[2024-07-19 05:26] LABS: Band Neutrophils % (manual) 0; Basophils % (manual) 0 (0.0-2.0); Blast Cells 0; Metamyelocytes % 0; Myelocytes % 0; Promyelocytes % 0; Reactive Lymphocytes 0
--- NOTE | 2024-07-19 05:52 | DVH ---
CHEST RADIOGRAPH Indication: pna Technique: Single frontal view of the chest was obtained Comparison: XY CHEST PORTABLE on DOS: 07/18/24, XY CHEST PORTABLE on DOS: 07/17/24, XY CHEST PORTABLE on DOS: 07/16/24 IMPRESSION: Heart appears stable in size. No focal airspace opacity, sizeable effusion, or pneumothorax. Right I J catheter tip in the region of the superior vena cava.
[2024-07-19 05:57] LABS: Eosinophils % (manual) 1 (0-7); Lymphocytes % (manual) 26 (10.0-50.0); Monocytes % (manual) 7 (0-12); Platelet Estimate Adequate
[2024-07-19 08:44] LABS: Potassium 3.6 mmol/L (3.5-5.1); Sodium 141 mmol/L (136-145)
[2024-07-19 08:45] LABS: Anion Gap 10 (5-15); Carbon Dioxide 21 mmol/L (20-31)
[2024-07-19 08:46] LABS: Calcium 9.7 mg/dL (8.7-10.4)
[2024-07-19 08:47] LABS: Chloride 110 mmol/L (98-107)
--- NOTE | 2024-07-19 08:48 | DVHPN2 ---
Subjective Patient denies any symptoms today. Reviewed: Care Plan, H&P, Labs, Medications, Previous Orders, Radiology Changes from previous H/P or p: No Changes General: Per HPI Objective Vitals Vital Signs Date Time Temp Pulse Resp B/P (MAP) Pulse Ox O2 Delivery O2 Flow Rate FiO2 07/19/24 07:00 82 14 121/76 (91) 98 07/19/24 06:21 Nasal Cannula 1.0 07/19/24 06:21 24 07/19/24 04:00 98.4 98.4 Intake/Output Intake and Output 07/19/24 07:00 Intake Total 2650 ml Output Total 1150 ml Balance 1500 ml Intake Oral 1250 ml IV Total 1400 ml Output Urine Total 1150 ml # Bowel Movements 2 General Appearance: Alert, Oriented X3, Cooperative, mild distress HEENT: Atraumatic, PERRLA Lungs: Clear to auscultation, Normal air movement Cardiovascular: Normal S1, Normal S2 Abdomen: Normal bowel sounds, Soft, No tenderness, No hepatospenomegaly Genitourinary: No Apparent Abnormalities (Gastelum catheter) Neuro: Cranial nerves 3-12 NL Skin: Dry, Intact Psych/Mental Status: Other (Unable to assess) Medications Current Medications Medications Dose Ordered Sig/Ginger Route Start Time Stop Time Status Last Admin Dose Admin Atorvastatin Calcium 40 mg HS PO 07/06/24 22:00 07/18/24 21:08 40 MG Gabapentin 400 mg BID PO 07/06/24 22:00 Hold Levothyroxine Sodium 75 mcg QAM@0600 PO 07/07/24 06:00 07/19/24 06:19 75 MCG Montelukast Sodium 10 mg HS PO 07/06/24 22:00 07/18/24 21:08 10 MG Ondansetron HCl 4 mg Q4HP PRN IV 07/06/24 19:00 07/18/24 21:37 4 MG Acetaminophen 650 mg Q6HP PRN PO 07/06/24 19:00 07/19/24 03:24 650 MG Pantoprazole Sodium 40 mg DAILY IV 07/09/24 10:00 07/18/24 11:22 40 MG Docusate Sodium 100 mg BIDPRN PRN PO 07/08/24 12:45 07/09/24 10:25 100 MG Doxycycline Hyclate 100 ml @ 50 mls/hr Q12H IV 07/09/24 15:00 07/19/24 03:23 50 MLS/HR Hydralazine HCl 10 mg Q6HP PRN IV 07/09/24 18:00 07/14/24 06:52 10 MG Carbamazepine 200 mg BID PO 07/09/24 22:00 07/18/24 21:28 200 MG Diagnostic Test (Pha) 1 strip Q6HR 07/13/24 00:00 07/19/24 06:19 1 STRIP Insulin Human Regular FOLLOW SLIDING SCALE Q6HR SC 07/13/24 00:00 Dextrose 50 ml UD IV 07/13/24 00:00 Enoxaparin Sodium 40 mg DAILY SC 07/13/24 10:00 UNV Enoxaparin Sodium 30 mg DAILY SC 07/13/24 10:00 07/18/24 11:23 30 MG Micafungin Sodium 100 mg/Sodium Chloride 100 ml @ 100 mls/hr DAILY IV 07/14/24 10:00 07/18/24 12:03 100 MLS/HR Labetalol HCl 10 mg Q2HPRN PRN IV 07/14/24 08:45 Nystatin 5 ml QID MT 07/14/24 12:00 07/19/24 06:19 5 ML Albuterol 2.5 mg Q6HR NEB 07/15/24 12:00 07/19/24 06:21 2.5 MG Ipratropium [place] 0.5 mg Q6HR NEB 07/15/24 12:00 07/19/24 06:21 0.5 MG Epoetin Julito-epbx 4,000 unit TUTHSA@2100 [place] 07/16/24 21:00 07/18/24 21:31 4,000 UNIT Amlodipine Besylate 10 mg DAILY PO 07/18/24 10:00 07/18/24 11:24 10 MG Ceftriaxone Sodium 50 ml @ 100 mls/hr DAILY@09 IV 07/18/24 09:00 07/18/24 10:50 100 MLS/HR Laboratory Results Laboratory Tests 07/19/24 04:35 Chemistry Test 07/19/24 08:18 Calcium Level Pending Urinalysis Test 07/06/24 19:30 Urine Color Colorless (Yellow) Urine Clarity Clear (Clear) Urine pH 5.0 (5.0-9.0) Urine Specific [place] 1.006 (1.001-1.035) Urine Protein Negative (Negative) Urine Ketones Negative (Negative) Urine Blood Negative /uL (Negative) Urine Nitrite Negative (Negative) Urine Bilirubin Negative (Negative) Urine Urobilinogen Normal mg/dL (Negative) Urine Leukocyte Esterase Negative /uL (Negative) Urine RBC <1 /hpf (0 - 4) Urine Microscopic WBC 2 /HPF (0-5) Urine Squamous Epithelial Cells Few /hpf (<5) Urine Bacteria None seen /hpf (None Seen) Urine Glucose Normal mg/dL (Normal) Blood Gas Results Test 07/18/24 09:47 Arterial Blood pH 7.401 (7.350-7.450) FiO2 % 24.0 Microbiology Microbiology Date/Time Source Procedure Growth Status 07/11/24 12:00 Bronchial Washings Gram Stain - Final Resulted 07/11/24 12:00 Respiratory Culture - Preliminary Presumptive Zuleyka albicans Resulted 07/09/24 15:25 Trachea Gram Stain - Final Complete 07/09/24 15:25 Trachea Respiratory Culture - Final Complete Labs and/or images reviewed: Labs reviewed by me, Image(s) reviewed by me Assessment/Plan Assessment/Plan Impression: -abdominal pain, questionably secondary to cholelithiasis versus constipation -constipation -cholelithiasis -obesity -acute respiratory failure with mechanical ventilation -multifocal pneumonia, probable aspiration etiology -acute kidney injury, vasomotor nephropathy, underlying CKD stage 4 -hyperchloremic metabolic acidosis -septic shock -anemia of chronic disease Plan: Events: No events overnight. -deescalate antibiotic therapy to Rocephin and doxycycline and micafungin. Consider stopping after 14 day course -physical therapy consultation -continue doxycycline, Zosyn, and Micafungin -nystatin swish and swallow -repeat labs in a.m. Total time spent with patient discussing and formulating plan of care: 35 minutes. This medical document was created using an electronic medical record system with [employer] dictation system. Although this document has been carefully reviewed, there may still be some phonetic and typographical errors. These areas are purely typographical due to imperfections of the software programs, and do not reflect any compromise in the patient's medical care. Plan discussed with: Patient, Other (RN) My Orders Orders - DIANE FRANKLIN NP Procedure Category Date Status Time Mechanical Soft Diet DIET 4/5/25 Transmitted Lunch Date of Service: Jul 19, 2024 Billing Provider: DIANE FRANKLIN NP Common Visit Codes: [id number] INP/OBS CARE(HIGH) DIANE FRANKLIN NP Jul 19, 2024 08:48
[2024-07-19 08:50] LABS: BUN/Creatinine Ratio 23.1 (10.0-20.0); Glucose 97 mg/dL (74-106)
[2024-07-19 08:54] LABS: Blood Urea Nitrogen 57 mg/dL (9-23)
--- NOTE | 2024-07-19 13:44 | DVHPN2 ---
Progress Note - Dictate Date Seen: Jul 19, 2024 Medical Necessity Reason Pt with a Central, PICC or Fol: Yes The following are medically ne: Central Line, South Catheter Reason for south catheter: Strict I&O Subjective Patient was seen and evaluated in follow up in the ICU. Patient's O2 was decreased to 1 LPM NC. Patient is complaining of generalized pain. 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 Chest x-ray shows NAD. noted with intermittent confusion. vital signs Vital Sign Date Time Temp Pulse Resp B/P (MAP) Pulse Ox O2 Delivery O2 Flow Rate FiO2 07/19/24 12:00 97.6 82 11 137/79 (98) 99 97.6 07/19/24 11:53 Nasal Cannula* 1 24 Total Intake and Output 07/18/24 07/18/24 07/19/24 14:59 22:59 06:59 Intake Total 100 ml 1450 ml 1100 ml Output Total 650 ml 500 ml Balance 100 ml 800 ml 600 ml medications Current Medications Medications Dose Ordered Sig/Ginger Route Start Time Stop Time Status Last Admin Dose Admin Atorvastatin Calcium 40 mg HS PO 07/06/24 22:00 07/18/24 21:08 40 MG Gabapentin 400 mg BID PO 07/06/24 22:00 Hold Levothyroxine Sodium 75 mcg QAM@0600 PO 07/07/24 06:00 07/19/24 06:19 75 MCG Montelukast Sodium 10 mg HS PO 07/06/24 22:00 07/18/24 21:08 10 MG Ondansetron HCl 4 mg Q4HP PRN IV 07/06/24 19:00 07/19/24 10:21 4 MG Acetaminophen 650 mg Q6HP PRN PO 07/06/24 19:00 07/19/24 03:24 650 MG Pantoprazole Sodium 40 mg DAILY IV 07/09/24 10:00 07/19/24 09:27 40 MG Docusate Sodium 100 mg BIDPRN PRN PO 07/08/24 12:45 07/09/24 10:25 100 MG Doxycycline Hyclate 100 ml @ 50 mls/hr Q12H IV 07/09/24 15:00 07/19/24 03:23 50 MLS/HR Hydralazine HCl 10 mg Q6HP PRN IV 07/09/24 18:00 07/14/24 06:52 10 MG Carbamazepine 200 mg BID PO 07/09/24 22:00 07/19/24 09:37 200 MG Diagnostic Test (Pha) 1 strip Q6HR 07/13/24 00:00 07/19/24 12:55 1 STRIP Insulin Human Regular FOLLOW SLIDING SCALE Q6HR SC 07/13/24 00:00 Dextrose 50 ml UD IV 07/13/24 00:00 Enoxaparin Sodium 40 mg DAILY SC 07/13/24 10:00 UNV Enoxaparin Sodium 30 mg DAILY SC 07/13/24 10:00 07/19/24 09:28 30 MG Micafungin Sodium 100 mg/Sodium Chloride 100 ml @ 100 mls/hr DAILY IV 07/14/24 10:00 07/19/24 10:21 100 MLS/HR Labetalol HCl 10 mg Q2HPRN PRN IV 07/14/24 08:45 Nystatin 5 ml QID MT 07/14/24 12:00 07/19/24 12:55 5 ML Albuterol 2.5 mg Q6HR NEB 07/15/24 12:00 07/19/24 11:44 2.5 MG Ipratropium [place] 0.5 mg Q6HR [facility] [place] 07/15/24 12:00 07/19/24 11:44 0.5 MG Epoetin Julito-epbx 4,000 unit TUTHSA@2100 [place] 07/16/24 21:00 07/18/24 21:31 4,000 UNIT Amlodipine Besylate 10 mg DAILY PO 07/18/24 10:00 07/19/24 09:29 10 MG Ceftriaxone Sodium 50 ml @ 100 mls/hr DAILY@09 IV 07/18/24 09:00 07/19/24 09:27 100 MLS/HR objective GENERAL: Awake, alert, oriented. LUNGS: Decreased breath sounds. CARDIOVASCULAR: Heart sounds are good. ABDOMEN: Soft. laboratory and microbiology Laboratory Tests 07/19/24 08:18 07/19/24 04:35 Test 07/19/24 08:18 Range/Units Serum Glucose 97 74-106 mg/dL Problem List Acute hypoxic respiratory failure due to aspiration pneumonia/aspiration pneumonitis. Aspiration pneumonia. Intractable vomiting. Shock, septic possible. Symptomatic cholelithiasis possible. Chronic kidney disease. Hypokalemia. Chronic anemia. History of left kidney mass status post nephrectomy 2021 [facility]. Hypertension. Diverticulosis. Fatty liver. Persisting constipation. Elevated troponin. Episode of SVT. Assessment/Plan Continued all current supportive medical care. Amlodipine, Labetalol. Lipitor. IV antibiotics as ordered. DVT and GI prophylactics. IV Hydralazine for SBP >170. Additional plan as per the hospital course. Critical care time of 45 minutes provided to include time spent evaluation of patient at bedside, when appropriate patient/family education for diagnosis, treatment plan, review of pertinent medical information and discussion of care with specialty providers and PCP. Dietary Evaluation Review Comments: Continue current plan of care Expected Outcomes/Goals: Pt will meet >75% estimated needs Fu 3-5 days Plan discussed with: Patient MARÍA MIGUEL MD Jul 19, 2024 13:15
--- NOTE | 2024-07-19 19:37 | DVHPN2 ---
Progress Note - Dictate Date Seen: Jul 19, 2024 Medical Necessity Reason Pt with a Central, PICC or Fol: Yes The following are medically ne: Central Line, South Catheter Reason for south catheter: Strict I&O Subjective Patient seen and examined at bedside. Remains on supplemental oxygen Overnight events reviewed. vital signs Vital Sign Date Time Temp Pulse Resp B/P (MAP) Pulse Ox O2 Delivery O2 Flow Rate FiO2 07/19/24 18:52 84 16 100 07/19/24 18:43 Nasal Cannula* 1 24 07/19/24 18:00 128/76 (93) 07/19/24 16:00 98.8 98.8 Total Intake and Output 07/18/24 07/18/24 07/19/24 15:00 23:00 07:00 Intake Total 100 ml 1550 ml 1000 ml Output Total 650 ml 500 ml Balance 100 ml 900 ml 500 ml medications Current Medications Medications Dose Ordered Sig/Ginger Route Start Time Stop Time Status Last Admin Dose Admin Atorvastatin Calcium 40 mg HS PO 07/06/24 22:00 07/18/24 21:08 40 MG Gabapentin 400 mg BID PO 07/06/24 22:00 Hold Levothyroxine Sodium 75 mcg QAM@0600 PO 07/07/24 06:00 07/19/24 06:19 75 MCG Montelukast Sodium 10 mg HS PO 07/06/24 22:00 07/18/24 21:08 10 MG Ondansetron HCl 4 mg Q4HP PRN IV 07/06/24 19:00 07/19/24 16:56 4 MG Acetaminophen 650 mg Q6HP PRN PO 07/06/24 19:00 07/19/24 03:24 650 MG Pantoprazole Sodium 40 mg DAILY IV 07/09/24 10:00 07/19/24 09:27 40 MG Docusate Sodium 100 mg BIDPRN PRN PO 07/08/24 12:45 07/09/24 10:25 100 MG Doxycycline Hyclate 100 ml @ 50 mls/hr Q12H IV 07/09/24 15:00 07/19/24 15:24 50 MLS/HR Hydralazine HCl 10 mg Q6HP PRN IV 07/09/24 18:00 07/14/24 06:52 10 MG Carbamazepine 200 mg BID PO 07/09/24 22:00 07/19/24 09:37 200 MG Diagnostic Test (Pha) 1 strip Q6HR 07/13/24 00:00 07/19/24 18:23 1 STRIP Insulin Human Regular FOLLOW SLIDING SCALE Q6HR SC 07/13/24 00:00 Dextrose 50 ml UD IV 07/13/24 00:00 Enoxaparin Sodium 40 mg DAILY SC 07/13/24 10:00 UNV Enoxaparin Sodium 30 mg DAILY SC 07/13/24 10:00 07/19/24 09:28 30 MG Micafungin Sodium 100 mg/Sodium Chloride 100 ml @ 100 mls/hr DAILY IV 07/14/24 10:00 07/19/24 10:21 100 MLS/HR Labetalol HCl 10 mg Q2HPRN PRN IV 07/14/24 08:45 Nystatin 5 ml QID MT 07/14/24 12:00 07/19/24 18:42 5 ML Albuterol 2.5 mg Q6HR NEB 07/15/24 12:00 07/19/24 18:43 2.5 MG Ipratropium [place] 0.5 mg Q6HR [facility] 07/15/24 12:00 07/19/24 18:42 0.5 MG Epoetin Julito-epbx 4,000 unit TUTHSA@2100 [place] 07/16/24 21:00 07/18/24 21:31 4,000 UNIT Amlodipine Besylate 10 mg DAILY PO 07/18/24 10:00 07/19/24 09:29 10 MG Ceftriaxone Sodium 50 ml @ 100 mls/hr DAILY@09 IV 07/18/24 09:00 07/19/24 09:27 100 MLS/HR objective Gen.: Patient lying in bed in no apparent distress. On supplemental oxygen. Head: Normocephalic, atraumatic. Eyes: EOMI/PERRLA. Ears: Normal hearing. Normal anatomy. Neck/trachea: Trachea midline, supple. Nose: Normal external anatomy. Mouth: Moist mucous membranes. Chest: Decreased air entry bilaterally. No wheezing or rhonchi. Cardiovascular: Positive S1, positive S2. Regular rate and rhythm. Abdomen: Positive bowel sounds in all 4 quadrants. Soft, non-tender, non- distended. : Deferred. Rectal: Deferred. Skin: Warm, dry. Intact. Extremities: 2+ radial pulses bilaterally. No lower extremity edema. Neuro: Awake, alert, oriented x3. No gross motor or sensory deficits. Cranial nerves II through XII intact. Gait not assessed. laboratory and microbiology Laboratory Tests 07/19/24 08:18 07/19/24 04:35 Test 07/19/24 08:18 Range/Units Serum Glucose 97 74-106 mg/dL Assessment/Plan Impression: Acute hypoxic respiratory failure Aspiration pneumonia and aspiration pneumonitis Shock Chronic kidney disease Hypokalemia Chronic anemia Elevated troponin. Constipation Events: Remains on supplemental oxygen at 2 LPM NC Taper O2 as tolerated Awake, alert. No distress. Patient passed swallow eval yesterday Off pressors, hemodynamically stable. Continue antibiotics Continue bronchodilators Continue antifungal Monitor hemoglobin Awaiting PT/OT. S/p therapeutic bronchoscopy on 07/14/24, cleared secretions Patient tolerated the procedure well. Please see separate procedure note for details. Labs and imaging reviewed. Rest of plan as noted below Plan: S/p extubation on 07/16/24 Continue supplemental oxygen Titrate to keep O2 sats above 90%. Taper O2 as tolerated Continue antibiotics. F/u cultures. Pressors if necessary for hemodynamic support Titrate to keep mean arterial pressure greater than 65 mmHg. Monitor renal function Monitor electrolytes. Supplement as necessary. Monitor ins and outs. Accu-Cheks, ISS PRN. S/p bronchoscopy with RML BAL on 07/11/24 - see separate procedure note for details Follow up BAL cultures - presumptive Zuleyka albicans. GI prophylaxis. DVT prophylaxis. Prognosis: Poor given patient's multiple co-morbidities. Rest of plan per hospitalist and other consultants. Thank you Dr. Bhatia, for allowing me to participate in this patient's care. Further recommendations will depend on the patient's clinical course. Please do not hesitate to contact me if you have any questions or concerns. This medical document was created using an electronic medical record system with [employer] dictation system. Although these documentations are being carefully reviewed, there may still be some phonetic and typographical changes. The errors are purely typographical, due to imperfection on the software program, and do not reflect any compromise in the patient's medical care. Dietary Evaluation Review Comments: Continue current plan of care Expected Outcomes/Goals: Pt will meet >75% estimated needs Fu 3-5 days Plan discussed with: Patient, Other (RN ABIMBOLA Philippe MD Jul 19, 2024 19:37
[2024-07-20] VITALS (29 sets, daily range): BP systolic 107–156; BP diastolic 60–88; PULSE 75–104; RESP 12–29; TEMP 97.7–98.7; O2SAT 9–100
[2024-07-20 05:43] LABS: Anion Gap 10 (5-15); Carbon Dioxide 21 mmol/L (20-31); Sodium 140 mmol/L (136-145)
[2024-07-20 05:45] LABS: Calcium 9.4 mg/dL (8.7-10.4)
[2024-07-20 05:49] LABS: BUN/Creatinine Ratio 22.5 (10.0-20.0); Glucose 91 mg/dL (74-106)
--- NOTE | 2024-07-20 05:49 | DVH ---
EXAM: XR Chest, 1 View CLINICAL INDICATION: pna TECHNIQUE: Frontal view of the chest. COMPARISON: XY CHEST PORTABLE on DOS: 07/19/24, XY CHEST PORTABLE on DOS: 07/18/24, XY CHEST PORTABLE o n DOS: 07/17/24, XY CHEST PORTABLE on DOS: 07/16/24, XY CHEST PORTABLE on DOS: 07/15/24 FINDINGS: LUNGS AND PLEURAL SPACES: Left basilar atelectasis or pneumonia. Pulmonary venous congestion. No pneumothorax. HEART: Unremarkable. No cardiomegaly. MEDIASTINUM: Unremarkable. Normal mediastinal contour. BONES/JOINTS: Unremarkable. No acute fracture. TUBES, LINES AND DEVICES: Right internal jugular central venous catheter tip in the superior vena c kandice. OTHER FINDINGS: . . IMPRESSION: 1. Left basilar atelectasis or pneumonia. 2. Pulmonary venous congestion.
[2024-07-20 05:52] LABS: Hemoglobin 8.3 g/dL (12.2-16.2); White Blood Cell 6.5 10^3/uL (4.4-10.8)
[2024-07-20 05:54] LABS: Hematocrit 23.8 % (36.0-46.0); Mean Corpuscular Hemoglobin 30.1 pg (28.0-32.0); Mean Corpuscular Hgb Conc. 34.9 g/dL (32.0-36.0); Mean Corpuscular Volume 86.3 fL (80.0-100.0); Platelet Count (auto) 266 10^3/uL (140-450); Red Blood Cells 2.75 10^6/uL (4.0-5.20); Red Cell Distribution Width 16.1 % (11.8-14.3)
[2024-07-20 06:08] LABS: Band Neutrophils % (manual) 0; Basophils % (manual) 0 (0.0-2.0); Blast Cells 0; Metamyelocytes % 0; Myelocytes % 0; Promyelocytes % 0
[2024-07-20 06:25] LABS: Blood Urea Nitrogen 58 mg/dL (9-23); Chloride 109 mmol/L (98-107); Potassium 3.4 mmol/L (3.5-5.1)
[2024-07-20 08:11] LABS: Anisocytosis Slight; Eosinophils % (manual) 1 (0-7); Lymphocytes % (manual) 35 (10.0-50.0); Monocytes % (manual) 8 (0-12); Platelet Estimate Adequate; Reactive Lymphocytes 3
--- NOTE | 2024-07-20 09:48 | DVHPN2 ---
Progress Note - Dictate Date Seen: Jul 20, 2024 Medical Necessity Reason Pt with a Central, PICC or Fol: Yes The following are medically ne: Central Line, South Catheter Reason for south catheter: Strict I&O Subjective Ms. Randolph is a 74 years old female with a history of hypertension, dyslipidemia, congestive heart failure, asthma, solitary kidney, obesity, she came [facility] the [facility] on 07[facility]2024 with a chief company of right flank pain for three days, in the hospital, the patient was found to have constipation. I have seen and examined the patient, I have discussed with her nurse in. She is doing fine, oriented almost x3, she speaks fast, no acute distress Sputum culture, 07/11/2024: Presumptive Cirilo albicans Urinalysis, 07/06/2024: WBC: 2, urine leukocyte esterase: Negative ABG, 07/09/2024: Acidosis 07/10/2024: Metabolic acidosis, 07/12/2024: Metabolic acidosis, 07/13/2024: Metabolic acidosis WBC/HB/PLT/MCV, 07/14/2024: 6.1/9.1/128/87.1 BUN/CR, 07/06/2024: 32/2.63, 07/09/24: 34/3.44, 07/12/2024: 32/2.81, 07/14/2024: 46/2.7, 07/15/2024: 54/2.7 Liver function tests, 07/09/2024: Unremarkable Vitamin B12, 07/14/2024: 2949 TSH, 07/14/2024: 2.19 Chest x-ray, 07/14/2024: 1. Left basilar atelectasis or pneumonia. 2. Pulmonary venous congestion. CT head, 07/10/2024: Punctate focus of hypodensity over the left thalamus with hypodense focus of the right cerebellar which may represent lacunar infarct of unknown chronicity. Otherwise, no evidence for acute intracranial abnormalities. If symptoms persist, MRI may be considered for further evaluation. CT head, 07/14/2024: 1. No evidence of acute intracranial abnormality. 2. Mild white matter disease, nonspecific but most commonly associated with sequelae of chronic microvascular ischemic changes. 3. Acute sinusitis. MRI head, 07/15/2024: No evidence of acute intracranial abnormalities. vital signs Vital Sign Date Time Temp Pulse Resp B/P (MAP) Pulse Ox O2 Delivery O2 Flow Rate FiO2 07/20/24 09:01 141/80 07/20/24 08:00 98.2 79 17 97 98.2 07/20/24 06:00 Room Air* 0 21 Total Intake and Output 07/19/24 07/19/24 07/20/24 15:00 23:00 07:00 Intake Total 150 ml 550 ml 700 ml Output Total 800 ml 750 ml Balance 150 ml -250 ml -50 ml medications Current Medications Medications Dose Ordered Sig/Ginger Route Start Time Stop Time Status Last Admin Dose Admin Atorvastatin Calcium 40 mg HS PO 07/06/24 22:00 07/19/24 21:09 40 MG Gabapentin 400 mg BID PO 07/06/24 22:00 Hold Levothyroxine Sodium 75 mcg QAM@0600 PO 07/07/24 06:00 07/20/24 05:40 75 MCG Montelukast Sodium 10 mg HS PO 07/06/24 22:00 07/19/24 21:09 10 MG Ondansetron HCl 4 mg Q4HP PRN IV 07/06/24 19:00 07/20/24 09:00 4 MG Acetaminophen 650 mg Q6HP PRN PO 07/06/24 19:00 07/19/24 23:30 650 MG Pantoprazole Sodium 40 mg DAILY IV 07/09/24 10:00 07/20/24 09:00 40 MG Docusate Sodium 100 mg BIDPRN PRN PO 07/08/24 12:45 07/09/24 10:25 100 MG Doxycycline Hyclate 100 ml @ 50 mls/hr Q12H IV 07/09/24 15:00 07/20/24 02:24 50 MLS/HR Hydralazine HCl 10 mg Q6HP PRN IV 07/09/24 18:00 07/14/24 06:52 10 MG Carbamazepine 200 mg BID PO 07/09/24 22:00 07/20/24 09:01 200 MG Diagnostic Test (Pha) 1 strip Q6HR 07/13/24 00:00 07/20/24 05:39 1 STRIP Insulin Human Regular FOLLOW SLIDING SCALE Q6HR SC 07/13/24 00:00 Dextrose 50 ml UD IV 07/13/24 00:00 Enoxaparin Sodium 40 mg DAILY SC 07/13/24 10:00 UNV Enoxaparin Sodium 30 mg DAILY SC 07/13/24 10:00 07/20/24 09:00 30 MG Micafungin Sodium 100 mg/Sodium Chloride 100 ml @ 100 mls/hr DAILY IV 07/14/24 10:00 07/20/24 09:00 100 MLS/HR Labetalol HCl 10 mg Q2HPRN PRN IV 07/14/24 08:45 Nystatin 5 ml QID MT 07/14/24 12:00 07/20/24 05:39 5 ML Albuterol 2.5 mg Q6HR NEB 07/15/24 12:00 07/20/24 05:56 2.5 MG Ipratropium [place] 0.5 mg Q6HR NEB 07/15/24 12:00 07/20/24 05:56 0.5 MG Epoetin Julito-epbx 4,000 unit TUTHSA@2100 [place] 07/16/24 21:00 07/18/24 21:31 4,000 UNIT Amlodipine Besylate 10 mg DAILY PO 07/18/24 10:00 07/20/24 09:01 10 MG Ceftriaxone Sodium 50 ml @ 100 mls/hr DAILY@09 IV 07/18/24 09:00 07/20/24 08:23 100 MLS/HR objective The patient is well-nourished and well-developed with no distress. MENTAL STATUS: Subjective CRANIAL NERVES: Pupils are equal round and reactive to light briskly, normal external eye movement, normal sensation and motor examination in the lateral trigeminal nerve distribution, no facial weakness. SENSATION: Okay to pinprick and light touch MOTOR: Normal tone in the upper and lower extremity. Normal muscle bulk. No fasciculations. moves the arms and legs, the muscle power is no less than 4/5 REFLEXES: Deep tendon reflexes are symmetrical. No pathological reflexes. CEREBELLAR/COORDINATION: No ataxia GAIT/STATION: deferred laboratory and microbiology Laboratory Tests 07/20/24 05:11 Test 07/20/24 05:11 Range/Units Serum Glucose 91 74-106 mg/dL Problem List Altered mental status/Coma improving Hypoxic encephalopathy Metabolic encephalopathy Toxic encephalopathy Acute respiratory failure, resolved Pneumonia Sepsis/septic shock Acute kidney failure Assessment/Plan Monitoring Supportive treatment care Follow-up labs Oxygen IV antibiotics DVT prophylaxis/Lovenox 30 mg subQ daily Up to chair Physical therapy Pulmonology on case Cardiology on case GI on case Nephrology on case Surgery on case More recommendation per clinical course This medical document was created using an electronic medical record system with [employer] dictation system. Although this document has been carefully reviewed, there may still be some phonetic and typographical errors. These areas are purely typographical due to imperfections of the software programs, and do not reflect any compromise in the patient's medical care. Prognosis poor Dietary Evaluation Review Comments: Continue current plan of care Expected Outcomes/Goals: Pt will meet >75% estimated needs Fu 3-5 days Plan discussed with: Patient, Other GISELA WISE MD Jul 20, 2024 09:48
--- NOTE | 2024-07-20 11:02 | DVHPN2 ---
Subjective Patient denies any symptoms today. Reviewed: Care Plan, H&P, Labs, Medications, Previous Orders, Radiology Changes from previous H/P or p: No Changes General: Per HPI Objective Vitals Vital Signs Date Time Temp Pulse Resp B/P (MAP) Pulse Ox O2 Delivery O2 Flow Rate FiO2 07/20/24 10:00 96 Room Air* 0 21 07/20/24 10:00 83 07/20/24 09:01 141/80 07/20/24 08:00 20 07/20/24 08:00 98.2 98.2 Intake/Output Intake and Output 07/20/24 07:00 Intake Total 1400 ml Output Total 1550 ml Balance -150 ml Intake Oral 1150 ml IV Total 250 ml Output Urine Total 1550 ml # Bowel Movements 2 General Appearance: Alert, Oriented X3, Cooperative, mild distress HEENT: Atraumatic, PERRLA Lungs: Clear to auscultation, Normal air movement Cardiovascular: Normal S1, Normal S2 Abdomen: Normal bowel sounds, Soft, No tenderness, No hepatospenomegaly Genitourinary: No Apparent Abnormalities (Gastelum catheter) Neuro: Cranial nerves 3-12 NL Skin: Dry, Intact Psych/Mental Status: Other (Unable to assess) Medications Current Medications Medications Dose Ordered Sig/Ginger Route Start Time Stop Time Status Last Admin Dose Admin Atorvastatin Calcium 40 mg HS PO 07/06/24 22:00 07/19/24 21:09 40 MG Gabapentin 400 mg BID PO 07/06/24 22:00 Hold Levothyroxine Sodium 75 mcg QAM@0600 PO 07/07/24 06:00 07/20/24 05:40 75 MCG Montelukast Sodium 10 mg HS PO 07/06/24 22:00 07/19/24 21:09 10 MG Ondansetron HCl 4 mg Q4HP PRN IV 07/06/24 19:00 07/20/24 09:00 4 MG Acetaminophen 650 mg Q6HP PRN PO 07/06/24 19:00 07/19/24 23:30 650 MG Pantoprazole Sodium 40 mg DAILY IV 07/09/24 10:00 07/20/24 09:00 40 MG Docusate Sodium 100 mg BIDPRN PRN PO 07/08/24 12:45 07/09/24 10:25 100 MG Doxycycline Hyclate 100 ml @ 50 mls/hr Q12H IV 07/09/24 15:00 07/20/24 02:24 50 MLS/HR Hydralazine HCl 10 mg Q6HP PRN IV 07/09/24 18:00 07/14/24 06:52 10 MG Carbamazepine 200 mg BID PO 07/09/24 22:00 07/20/24 09:01 200 MG Diagnostic Test (Pha) 1 strip Q6HR 07/13/24 00:00 07/20/24 05:39 1 STRIP Insulin Human Regular FOLLOW SLIDING SCALE Q6HR SC 07/13/24 00:00 Dextrose 50 ml UD IV 07/13/24 00:00 Enoxaparin Sodium 40 mg DAILY SC 07/13/24 10:00 UNV Enoxaparin Sodium 30 mg DAILY SC 07/13/24 10:00 07/20/24 09:00 30 MG Micafungin Sodium 100 mg/Sodium Chloride 100 ml @ 100 mls/hr DAILY IV 07/14/24 10:00 07/20/24 09:00 100 MLS/HR Labetalol HCl 10 mg Q2HPRN PRN IV 07/14/24 08:45 Nystatin 5 ml QID MT 07/14/24 12:00 07/20/24 05:39 5 ML Albuterol 2.5 mg Q6HR NEB 07/15/24 12:00 07/20/24 05:56 2.5 MG Ipratropium [place] 0.5 mg Q6HR NEB 07/15/24 12:00 07/20/24 05:56 0.5 MG Epoetin Julito-epbx 4,000 unit TUTHSA@2100 [place] 07/16/24 21:00 07/18/24 21:31 4,000 UNIT Amlodipine Besylate 10 mg DAILY PO 07/18/24 10:00 07/20/24 09:01 10 MG Ceftriaxone Sodium 50 ml @ 100 mls/hr DAILY@09 IV 07/18/24 09:00 07/20/24 08:23 100 MLS/HR Laboratory Results Laboratory Tests 07/20/24 05:11 Chemistry Test 07/20/24 05:11 Calcium Level 9.4 mg/dL (8.7-10.4) Urinalysis Test 07/06/24 19:30 Urine Color Colorless (Yellow) Urine Clarity Clear (Clear) Urine pH 5.0 (5.0-9.0) Urine Specific [place] 1.006 (1.001-1.035) Urine Protein Negative (Negative) Urine Ketones Negative (Negative) Urine Blood Negative /uL (Negative) Urine Nitrite Negative (Negative) Urine Bilirubin Negative (Negative) Urine Urobilinogen Normal mg/dL (Negative) Urine Leukocyte Esterase Negative /uL (Negative) Urine RBC <1 /hpf (0 - 4) Urine Microscopic WBC 2 /HPF (0-5) Urine Squamous Epithelial Cells Few /hpf (<5) Urine Bacteria None seen /hpf (None Seen) Urine Glucose Normal mg/dL (Normal) Microbiology Microbiology Date/Time Source Procedure Growth Status 07/11/24 12:00 Bronchial Washings Gram Stain - Final Resulted 07/11/24 12:00 Respiratory Culture - Preliminary Presumptive Zuleyka albicans Resulted 07/09/24 15:25 Trachea Gram Stain - Final Complete 07/09/24 15:25 Trachea Respiratory Culture - Final Complete Labs and/or images reviewed: Labs reviewed by me, Image(s) reviewed by me Assessment/Plan Assessment/Plan Impression: -abdominal pain, questionably secondary to cholelithiasis versus constipation -constipation -cholelithiasis -obesity -acute respiratory failure with mechanical ventilation -multifocal pneumonia, probable aspiration etiology -acute kidney injury, vasomotor nephropathy, underlying CKD stage 4 -hyperchloremic metabolic acidosis -septic shock -anemia of chronic disease Plan: Events: No events overnight. -deescalate antibiotic therapy to Rocephin and doxycycline and micafungin. Consider stopping after 14 day course -physical therapy consultation -continue doxycycline, Zosyn, and Micafungin -nystatin swish and swallow -repeat labs in a.m. Total time spent with patient discussing and formulating plan of care: 35 minutes. This medical document was created using an electronic medical record system with [employer] dictation system. Although this document has been carefully reviewed, there may still be some phonetic and typographical errors. These areas are purely typographical due to imperfections of the software programs, and do not reflect any compromise in the patient's medical care. Plan discussed with: Patient, Other (RN) My Orders Orders - DIANE RFANKLIN [employer] Procedure Category Date Status Time Transfer Orders XFER 07/20/24 Verified 10:59 Potassium Effervesent PHA 07/20/24 Verified Tab (Klor-Con/Ef) 11:00 Date of Service: Jul 20, 2024 Billing Provider: DIANE FRANKLIN NP Common Visit Codes: [id number] INP/OBS CARE(HIGH) DIANE FRANKLIN NP Jul 20, 2024 11:02
[2024-07-20] MEDS: POTASSIUM EFFERVESENT TAB 25 MEQ PO ONE (12:53)
--- NOTE | 2024-07-20 14:50 | DVHPN2 ---
Progress Note - Dictate Date Seen: Jul 20, 2024 Medical Necessity Reason Pt with a Central, PICC or Fol: Yes The following are medically ne: Central Line, South Catheter Reason for south catheter: Strict I&O Subjective Patient was seen and evaluated in follow up in the ICU. No overnight events. Patient is now on room air. Denies any SOB. HGB 8.3, HCT 23.8, K 3.4, BUN 58, [employer] 2.58. Patient potassium was replaced. Patient is stable to downgrade to [facility] bed. vital signs Vital Sign Date Time Temp Pulse Resp B/P (MAP) Pulse Ox O2 Delivery O2 Flow Rate FiO2 07/20/24 14:00 83 07/20/24 14:00 17 147/84 (105) 96 07/20/24 14:00 Room Air* 0 21 07/20/24 12:00 97.7 97.7 Total Intake and Output 07/19/24 07/19/24 07/20/24 15:00 23:00 07:00 Intake Total 150 ml 550 ml 700 ml Output Total 800 ml 750 ml Balance 150 ml -250 ml -50 ml medications Current Medications Medications Dose Ordered Sig/Ginger Route Start Time Stop Time Status Last Admin Dose Admin Atorvastatin Calcium 40 mg HS PO 07/06/24 22:00 07/19/24 21:09 40 MG Gabapentin 400 mg BID PO 07/06/24 22:00 Hold Levothyroxine Sodium 75 mcg QAM@0600 PO 07/07/24 06:00 07/20/24 05:40 75 MCG Montelukast Sodium 10 mg HS PO 07/06/24 22:00 07/19/24 21:09 10 MG Ondansetron HCl 4 mg Q4HP PRN IV 07/06/24 19:00 07/20/24 14:34 4 MG Acetaminophen 650 mg Q6HP PRN PO 07/06/24 19:00 07/19/24 23:30 650 MG Pantoprazole Sodium 40 mg DAILY IV 07/09/24 10:00 07/20/24 09:00 40 MG Docusate Sodium 100 mg BIDPRN PRN PO 07/08/24 12:45 07/09/24 10:25 100 MG Hydralazine HCl 10 mg Q6HP PRN IV 07/09/24 18:00 07/14/24 06:52 10 MG Carbamazepine 200 mg BID PO 07/09/24 22:00 07/20/24 09:01 200 MG Diagnostic Test (Pha) 1 strip Q6HR 07/13/24 00:00 07/20/24 12:00 1 STRIP Insulin Human Regular FOLLOW SLIDING SCALE Q6HR SC 07/13/24 00:00 Dextrose 50 ml UD IV 07/13/24 00:00 Enoxaparin Sodium 40 mg DAILY SC 07/13/24 10:00 UNV Enoxaparin Sodium 30 mg DAILY SC 07/13/24 10:00 07/20/24 09:00 30 MG Labetalol HCl 10 mg Q2HPRN PRN IV 07/14/24 08:45 Nystatin 5 ml QID MT 07/14/24 12:00 07/20/24 12:53 5 ML Albuterol 2.5 mg Q6HR NEB 07/15/24 12:00 07/20/24 11:17 2.5 MG Ipratropium [place] 0.5 mg Q6HR NEB 07/15/24 12:00 07/20/24 11:17 0.5 MG Epoetin Julito-epbx 4,000 unit TUTHSA@2100 SC 07/16/24 21:00 07/18/24 21:31 4,000 UNIT Amlodipine Besylate 10 mg DAILY PO 07/18/24 10:00 07/20/24 09:01 10 MG Ceftriaxone Sodium 50 ml @ 100 mls/hr DAILY@09 IV 07/18/24 09:00 07/20/24 08:23 100 MLS/HR objective GENERAL: Awake, alert, oriented. LUNGS: Decreased breath sounds. CARDIOVASCULAR: Heart sounds are good. ABDOMEN: Soft. laboratory and microbiology Laboratory Tests 07/20/24 05:11 Test 07/20/24 05:11 Range/Units Serum Glucose 91 74-106 mg/dL Problem List Acute hypoxic respiratory failure due to aspiration pneumonia/aspiration pneumonitis. Aspiration pneumonia. Intractable vomiting. Shock, septic possible. Symptomatic cholelithiasis possible. Chronic kidney disease. Hypokalemia. Chronic anemia. History of left kidney mass status post nephrectomy 2021 [facility]. Hypertension. Diverticulosis. Fatty liver. Persisting constipation. Elevated troponin. Episode of SVT. Assessment/Plan Continued all current supportive medical care. Amlodipine, Labetalol. Lipitor. IV antibiotics as ordered. DVT and GI prophylactics. IV Hydralazine for SBP >170. Additional plan as per the hospital course. Critical care time of 45 minutes provided to include time spent evaluation of patient at bedside, when appropriate patient/family education for diagnosis, treatment plan, review of pertinent medical information and discussion of care with specialty providers and PCP. Dietary Evaluation Review Comments: Continue current plan of care Expected Outcomes/Goals: Pt will meet >75% estimated needs Fu 3-5 days Plan discussed with: Patient MARÍA MIGUEL MD Jul 20, 2024 14:50
--- NOTE | 2024-07-20 22:03 | DVHPN2 ---
Progress Note - Dictate Date Seen: Jul 20, 2024 Medical Necessity Reason Pt with a Central, PICC or Fol: Yes The following are medically ne: Central Line, South Catheter Reason for south catheter: Strict I&O Subjective Patient patient was in [place] but now downgraded to telemetry She was out of bed to chair and starting to eat She is awake and alert and communicating appropriately Patient has multi focal pneumonia on IV antibiotics Patient reports a previous colonoscopy about five years ago which was negative, she has not had a recent endoscopy No upper GI bleed coffee-ground emesis or melena reported vital signs Vital Sign Date Time Temp Pulse Resp B/P (MAP) Pulse Ox O2 Delivery O2 Flow Rate FiO2 07/20/24 21:00 97.8 87 18 132/77 (95) 97 97.8 07/20/24 19:10 Room Air 0.0 07/20/24 19:10 21 Total Intake and Output 07/19/24 07/19/24 07/20/24 15:00 23:00 07:00 Intake Total 150 ml 550 ml 700 ml Output Total 800 ml 750 ml Balance 150 ml -250 ml -50 ml medications Current Medications Medications Dose Ordered Sig/Ginger Route Start Time Stop Time Status Last Admin Dose Admin Atorvastatin Calcium 40 mg HS PO 07/06/24 22:00 07/20/24 21:18 40 MG Gabapentin 400 mg BID PO 07/06/24 22:00 Hold Levothyroxine Sodium 75 mcg QAM@0600 PO 07/07/24 06:00 07/20/24 05:40 75 MCG Montelukast Sodium 10 mg HS PO 07/06/24 22:00 07/20/24 21:18 10 MG Ondansetron HCl 4 mg Q4HP PRN IV 07/06/24 19:00 07/20/24 14:34 4 MG Acetaminophen 650 mg Q6HP PRN PO 07/06/24 19:00 07/20/24 15:58 650 MG Pantoprazole Sodium 40 mg DAILY IV 07/09/24 10:00 07/20/24 09:00 40 MG Docusate Sodium 100 mg BIDPRN PRN PO 07/08/24 12:45 07/09/24 10:25 100 MG Hydralazine HCl 10 mg Q6HP PRN IV 07/09/24 18:00 07/14/24 06:52 10 MG Carbamazepine 200 mg BID PO 07/09/24 22:00 07/20/24 21:20 200 MG Diagnostic Test (Pha) 1 strip Q6HR 07/13/24 00:00 07/20/24 18:00 1 STRIP Insulin Human Regular FOLLOW SLIDING SCALE Q6HR SC 07/13/24 00:00 Dextrose 50 ml UD IV 07/13/24 00:00 Enoxaparin Sodium 40 mg DAILY SC 07/13/24 10:00 UNV Enoxaparin Sodium 30 mg DAILY SC 07/13/24 10:00 07/20/24 09:00 30 MG Labetalol HCl 10 mg Q2HPRN PRN IV 07/14/24 08:45 Nystatin 5 ml QID MT 07/14/24 12:00 07/20/24 21:18 5 ML Albuterol 2.5 mg Q6HR NEB 07/15/24 12:00 07/20/24 19:10 2.5 MG Ipratropium [place] 0.5 mg Q6HR NEB 07/15/24 12:00 07/20/24 19:10 0.5 MG Epoetin Julito-epbx 4,000 unit TUTHSA@2100 SC 07/16/24 21:00 07/18/24 21:31 4,000 UNIT Amlodipine Besylate 10 mg DAILY PO 07/18/24 10:00 07/20/24 09:01 10 MG Ceftriaxone Sodium 50 ml @ 100 mls/hr DAILY@09 IV 07/18/24 09:00 07/20/24 08:23 100 MLS/HR objective GEN: intubated sedated HEENT: NC/AT; MMM. CV: RRR, no m/r/g. LUNGS: Decreased breath sound ABD: Hypoactive bowel sounds, no rigidity no distention, soft EXT: skin Warm, well perfused. no rashes. No clubbing, cyanosis, or edema. laboratory and microbiology Laboratory Tests 07/20/24 05:11 Test 07/20/24 05:11 Range/Units Serum Glucose 91 74-106 mg/dL Problems(with codes): (1) Multifocal pneumonia (2) N&V (nausea and vomiting) (3) Cholelithiasis (4) Constipation Prognosis Plan Monitor labs Deescalate antibiotic therapy Patient is on oral nystatin swish and swallow Advance diet as tolerated I will follow up patient with you Supportive care from a GI point of view at this time Dietary Evaluation Review Comments: Continue current plan of care Expected Outcomes/Goals: Pt will meet >75% estimated needs Fu 3-5 days Plan discussed with: Patient ASHLEIGH VILLANUEVA MD Jul 20, 2024 22:03
--- NOTE | 2024-07-20 23:26 | DVHPN2 ---
Progress Note - Dictate Date Seen: Jul 20, 2024 Medical Necessity Reason Pt with a Central, PICC or Fol: Yes The following are medically ne: Central Line, South Catheter Reason for south catheter: Strict I&O Subjective Patient seen and examined at bedside. Currently breathing on room air. Overnight events reviewed. vital signs Vital Sign Date Time Temp Pulse Resp B/P (MAP) Pulse Ox O2 Delivery O2 Flow Rate FiO2 07/20/24 21:00 97.8 87 18 132/77 (95) 97 97.8 07/20/24 19:10 Room Air 0.0 07/20/24 19:10 21 Total Intake and Output 07/19/24 07/19/24 07/20/24 15:00 23:00 07:00 Intake Total 150 ml 550 ml 700 ml Output Total 800 ml 750 ml Balance 150 ml -250 ml -50 ml medications Current Medications Medications Dose Ordered Sig/Ginger Route Start Time Stop Time Status Last Admin Dose Admin Atorvastatin Calcium 40 mg HS PO 07/06/24 22:00 07/20/24 21:18 40 MG Gabapentin 400 mg BID PO 07/06/24 22:00 Hold Levothyroxine Sodium 75 mcg QAM@0600 PO 07/07/24 06:00 07/20/24 05:40 75 MCG Montelukast Sodium 10 mg HS PO 07/06/24 22:00 07/20/24 21:18 10 MG Ondansetron HCl 4 mg Q4HP PRN IV 07/06/24 19:00 07/20/24 14:34 4 MG Acetaminophen 650 mg Q6HP PRN PO 07/06/24 19:00 07/20/24 15:58 650 MG Pantoprazole Sodium 40 mg DAILY IV 07/09/24 10:00 07/20/24 09:00 40 MG Docusate Sodium 100 mg BIDPRN PRN PO 07/08/24 12:45 07/09/24 10:25 100 MG Hydralazine HCl 10 mg Q6HP PRN IV 07/09/24 18:00 07/14/24 06:52 10 MG Carbamazepine 200 mg BID PO 07/09/24 22:00 07/20/24 21:20 200 MG Diagnostic Test (Pha) 1 strip Q6HR 07/13/24 00:00 07/20/24 18:00 1 STRIP Insulin Human Regular FOLLOW SLIDING SCALE Q6HR SC 07/13/24 00:00 Dextrose 50 ml UD IV 07/13/24 00:00 Enoxaparin Sodium 40 mg DAILY SC 07/13/24 10:00 UNV Enoxaparin Sodium 30 mg DAILY SC 07/13/24 10:00 07/20/24 09:00 30 MG Labetalol HCl 10 mg Q2HPRN PRN IV 07/14/24 08:45 Nystatin 5 ml QID MT 07/14/24 12:00 07/20/24 21:18 5 ML Albuterol 2.5 mg Q6HR NEB 07/15/24 12:00 07/20/24 19:10 2.5 MG Ipratropium [place] 0.5 mg Q6HR NEB 07/15/24 12:00 07/20/24 19:10 0.5 MG Epoetin Julito-epbx 4,000 unit TUTHSA@2100 SC 07/16/24 21:00 07/18/24 21:31 4,000 UNIT Amlodipine Besylate 10 mg DAILY PO 07/18/24 10:00 07/20/24 09:01 10 MG Ceftriaxone Sodium 50 ml @ 100 mls/hr DAILY@09 IV 07/18/24 09:00 07/20/24 08:23 100 MLS/HR objective Gen.: Patient lying in bed in no apparent distress. On room air. Head: Normocephalic, atraumatic. Eyes: EOMI/PERRLA. Ears: Normal hearing. Normal anatomy. Neck/trachea: Trachea midline, supple. Nose: Normal external anatomy. Mouth: Moist mucous membranes. Chest: Decreased air entry bilaterally. No wheezing or rhonchi. Cardiovascular: Positive S1, positive S2. Regular rate and rhythm. Abdomen: Positive bowel sounds in all 4 quadrants. Soft, non-tender, non- distended. : Deferred. Rectal: Deferred. Skin: Warm, dry. Intact. Extremities: 2+ radial pulses bilaterally. No lower extremity edema. Neuro: Awake, alert, oriented x3. No gross motor or sensory deficits. Cranial nerves II through XII intact. Gait not assessed. laboratory and microbiology Laboratory Tests 07/20/24 05:11 Test 07/20/24 05:11 Range/Units Serum Glucose 91 74-106 mg/dL Assessment/Plan Impression: Acute hypoxic respiratory failure Aspiration pneumonia and aspiration pneumonitis Shock Chronic kidney disease Hypokalemia Chronic anemia Elevated troponin. Constipation Events: Currently on room air. Supplemental oxygen PRN Awake, alert. No distress. Off pressors, hemodynamically stable. Continue antibiotics Continue bronchodilators Continue antifungal Monitor hemoglobin PT/OT Monitor renal function Monitor electrolytes. Supplement as necessary. Potassium supplementation S/p therapeutic bronchoscopy on 07/14/24, cleared secretions Patient tolerated the procedure well. Please see separate procedure note for details. Labs and imaging reviewed. Rest of plan as noted below Plan: S/p extubation on 07/16/24 Supplemental oxygen PRN Titrate to keep O2 sats above 92%. Continue antibiotics. F/u cultures. Pressors if necessary for hemodynamic support Titrate to keep mean arterial pressure greater than 65 mmHg. Monitor renal function Monitor electrolytes. Supplement as necessary. Monitor ins and outs. Accu-Cheks, ISS PRN. S/p bronchoscopy with RML BAL on 07/11/24 - see separate procedure note for details Follow up BAL cultures - presumptive Zuleyka albicans. GI prophylaxis. DVT prophylaxis. Prognosis: Poor given patient's multiple co-morbidities. Rest of plan per hospitalist and other consultants. Thank you Dr. Bhatia, for allowing me to participate in this patient's care. Further recommendations will depend on the patient's clinical course. Please do not hesitate to contact me if you have any questions or concerns. This medical document was created using an electronic medical record system with [employer] dictation system. Although these documentations are being carefully reviewed, there may still be some phonetic and typographical changes. The errors are purely typographical, due to imperfection on the software program, and do not reflect any compromise in the patient's medical care. Dietary Evaluation Review Comments: Continue current plan of care Expected Outcomes/Goals: Pt will meet >75% estimated needs Fu 3-5 days Plan discussed with: Other (RN) ABIMBOLA PAYNE MD Jul 20, 2024 23:26
[2024-07-21] VITALS (27 sets, daily range): BP systolic 129–152; BP diastolic 72–83; PULSE 69–104; RESP 17–20; TEMP 97.5–98.3; O2SAT 94–100
--- NOTE | 2024-07-21 10:54 | DVHPN2 ---
Subjective Patient is seen and examined at bedside. Still very weak and tired. Reviewed: Care Plan, H&P, Labs, Medications, Previous Orders, Radiology Changes from previous H/P or p: No Changes General: Per HPI Objective Vitals Vital Signs Date Time Temp Pulse Resp B/P (MAP) Pulse Ox O2 Delivery O2 Flow Rate FiO2 07/21/24 10:00 17 96 Room Air* 0 21 07/21/24 09:30 140/81 07/21/24 09:00 97.9 88 97.9 Intake/Output Intake and Output 07/21/24 06:59 Intake Total 430 ml Output Total 1600 ml Balance -1170 ml Intake Oral 280 ml IV Total 150 ml Output Urine Total 1600 ml General Appearance: Alert, Oriented X3, Cooperative, mild distress HEENT: Atraumatic, PERRLA Lungs: Clear to auscultation, Normal air movement Cardiovascular: Normal S1, Normal S2 Abdomen: Normal bowel sounds, Soft, No tenderness, No hepatospenomegaly Genitourinary: No Apparent Abnormalities (Gastelum catheter) Neuro: Cranial nerves 3-12 NL Skin: Dry, Intact Psych/Mental Status: Other (Unable to assess) Medications Current Medications Medications Dose Ordered Sig/Ginger Route Start Time Stop Time Status Last Admin Dose Admin Atorvastatin Calcium 40 mg HS PO 07/06/24 22:00 07/20/24 21:18 40 MG Gabapentin 400 mg BID PO 07/06/24 22:00 Hold Levothyroxine Sodium 75 mcg QAM@0600 PO 07/07/24 06:00 07/21/24 05:39 75 MCG Montelukast Sodium 10 mg HS PO 07/06/24 22:00 07/20/24 21:18 10 MG Ondansetron HCl 4 mg Q4HP PRN IV 07/06/24 19:00 07/20/24 14:34 4 MG Acetaminophen 650 mg Q6HP PRN PO 07/06/24 19:00 07/20/24 15:58 650 MG Pantoprazole Sodium 40 mg DAILY IV 07/09/24 10:00 07/21/24 09:29 40 MG Docusate Sodium 100 mg BIDPRN PRN PO 07/08/24 12:45 07/09/24 10:25 100 MG Hydralazine HCl 10 mg Q6HP PRN IV 07/09/24 18:00 07/14/24 06:52 10 MG Carbamazepine 200 mg BID PO 07/09/24 22:00 07/21/24 09:31 200 MG Diagnostic Test (Pha) 1 strip Q6HR 07/13/24 00:00 07/21/24 05:44 1 STRIP Insulin Human Regular FOLLOW SLIDING SCALE Q6HR SC 07/13/24 00:00 Dextrose 50 ml UD IV 07/13/24 00:00 Enoxaparin Sodium 40 mg DAILY SC 07/13/24 10:00 UNV Enoxaparin Sodium 30 mg DAILY SC 07/13/24 10:00 07/21/24 09:30 30 MG Labetalol HCl 10 mg Q2HPRN PRN IV 07/14/24 08:45 Nystatin 5 ml QID MT 07/14/24 12:00 07/21/24 05:39 5 ML Albuterol 2.5 mg Q6HR NEB 07/15/24 12:00 07/21/24 06:25 2.5 MG Ipratropium [place] 0.5 mg Q6HR NEB 07/15/24 12:00 07/21/24 06:25 0.5 MG Epoetin Julito-epbx 4,000 unit TUTHSA@2100 SC 07/16/24 21:00 07/18/24 21:31 4,000 UNIT Amlodipine Besylate 10 mg DAILY PO 07/18/24 10:00 07/21/24 09:30 10 MG Ceftriaxone Sodium 50 ml @ 100 mls/hr DAILY@09 IV 07/18/24 09:00 07/21/24 09:27 100 MLS/HR Laboratory Results Laboratory Tests 07/20/24 05:11 Urinalysis Test 07/06/24 19:30 Urine Color Colorless (Yellow) Urine Clarity Clear (Clear) Urine pH 5.0 (5.0-9.0) Urine Specific [place] 1.006 (1.001-1.035) Urine Protein Negative (Negative) Urine Ketones Negative (Negative) Urine Blood Negative /uL (Negative) Urine Nitrite Negative (Negative) Urine Bilirubin Negative (Negative) Urine Urobilinogen Normal mg/dL (Negative) Urine Leukocyte Esterase Negative /uL (Negative) Urine RBC <1 /hpf (0 - 4) Urine Microscopic WBC 2 /HPF (0-5) Urine Squamous Epithelial Cells Few /hpf (<5) Urine Bacteria None seen /hpf (None Seen) Urine Glucose Normal mg/dL (Normal) Microbiology Microbiology Date/Time Source Procedure Growth Status 07/11/24 12:00 Bronchial Washings Gram Stain - Final Resulted 07/11/24 12:00 Respiratory Culture - Preliminary Presumptive Zuleyka albicans Resulted 07/09/24 15:25 Trachea Gram Stain - Final Complete 07/09/24 15:25 Trachea Respiratory Culture - Final Complete Labs and/or images reviewed: Labs reviewed by me Assessment/Plan Assessment/Plan -abdominal pain, questionably secondary to cholelithiasis versus constipation -constipation -cholelithiasis -obesity -acute respiratory failure with mechanical ventilation -multifocal pneumonia, probable aspiration etiology -acute kidney injury, vasomotor nephropathy, underlying CKD stage 4 -hyperchloremic metabolic acidosis -septic shock -anemia of chronic disease Plan: Continuing Current management. -deescalate antibiotic therapy to Rocephin and doxycycline and micafungin. Consider stopping after 14 day course -physical therapy consultation -continue doxycycline, Zosyn, and Micafungin -nystatin swish and swallow This medical document was created using an electronic medical record system with [employer] direct computerized dictation system. Although this document has been carefully reviewed, there may still be some phonetic and typographical errors. These areas are purely typographical due to imperfections of the software programs, and do not reflect any compromise in the patient's medical care.. Plan discussed with: Patient Date of Service: Jul 21, 2024 Billing Provider: VIJAY COMBS MD Common Visit Codes: [id number] INP/OBS CARE(HIGH) VIJAY COMBS MD Jul 21, 2024 10:54
[2024-07-21] MEDS: LOPERAMIDE HCL 2 MG CAP/TAB PO PRN (16:06)
--- NOTE | 2024-07-21 18:22 | DVHPN2 ---
Progress Note - Dictate Date Seen: Jul 21, 2024 Medical Necessity Reason Pt with a Central, PICC or Fol: Yes The following are medically ne: Central Line, South Catheter Reason for south catheter: Strict I&O Subjective Patient was seen and evaluated in follow up. Patient has been downgraded. Patient is on room air. Patient is out of bed to chair. Telemetry reviewed. vital signs Vital Sign Date Time Temp Pulse Resp B/P (MAP) Pulse Ox O2 Delivery O2 Flow Rate FiO2 07/21/24 17:00 97.5 92 17 129/72 (91) 95 97.5 07/21/24 16:00 Room Air* 0 21 Total Intake and Output 07/20/24 07/20/24 07/21/24 15:00 23:00 07:00 Intake Total 150 ml 100 ml 180 ml Output Total 1600 ml Balance 150 ml 100 ml -1420 ml medications Current Medications Medications Dose Ordered Sig/Ginger Route Start Time Stop Time Status Last Admin Dose Admin Atorvastatin Calcium 40 mg HS PO 07/06/24 22:00 07/20/24 21:18 40 MG Gabapentin 400 mg BID PO 07/06/24 22:00 Hold Levothyroxine Sodium 75 mcg QAM@0600 PO 07/07/24 06:00 07/21/24 05:39 75 MCG Montelukast Sodium 10 mg HS PO 07/06/24 22:00 07/20/24 21:18 10 MG Ondansetron HCl 4 mg Q4HP PRN IV 07/06/24 19:00 07/21/24 12:42 4 MG Acetaminophen 650 mg Q6HP PRN PO 07/06/24 19:00 07/20/24 15:58 650 MG Pantoprazole Sodium 40 mg DAILY IV 07/09/24 10:00 07/21/24 09:29 40 MG Docusate Sodium 100 mg BIDPRN PRN PO 07/08/24 12:45 07/09/24 10:25 100 MG Hydralazine HCl 10 mg Q6HP PRN IV 07/09/24 18:00 07/14/24 06:52 10 MG Carbamazepine 200 mg BID PO 07/09/24 22:00 07/21/24 09:31 200 MG Enoxaparin Sodium 40 mg DAILY SC 07/13/24 10:00 UNV Enoxaparin Sodium 30 mg DAILY SC 07/13/24 10:00 07/21/24 09:30 30 MG Labetalol HCl 10 mg Q2HPRN PRN IV 07/14/24 08:45 Nystatin 5 ml QID MT 07/14/24 12:00 07/21/24 12:20 5 ML Albuterol 2.5 mg Q6HR [facility] 07/15/24 12:00 07/21/24 12:23 2.5 MG Ipratropium [place] 0.5 mg Q6HR [facility] 07/15/24 12:00 07/21/24 12:23 0.5 MG Epoetin Julito-epbx 4,000 unit TUTHSA@2100 SC 07/16/24 21:00 07/18/24 21:31 4,000 UNIT Amlodipine Besylate 10 mg DAILY PO 07/18/24 10:00 07/21/24 09:30 10 MG Ceftriaxone Sodium 50 ml @ 100 mls/hr DAILY@09 IV 07/18/24 09:00 07/21/24 09:27 100 MLS/HR Loperamide HCl 2 mg Q6HPRN PRN PO 07/21/24 12:15 07/21/24 16:06 2 MG objective GENERAL: Awake, alert, oriented. LUNGS: Decreased breath sounds. CARDIOVASCULAR: Heart sounds are good. ABDOMEN: Soft. laboratory and microbiology Laboratory Tests 07/20/24 05:11 Test 07/20/24 05:11 Range/Units Serum Glucose 91 74-106 mg/dL Problem List Acute hypoxic respiratory failure due to aspiration pneumonia/aspiration pneumonitis. Aspiration pneumonia. Intractable vomiting. Shock, septic possible. Symptomatic cholelithiasis possible. Chronic kidney disease. Hypokalemia. Chronic anemia. History of left kidney mass status post nephrectomy 2021 [facility]. Hypertension. Diverticulosis. Fatty liver. Persisting constipation. Elevated troponin. Episode of SVT. Assessment/Plan Continued all current supportive medical care. Amlodipine, Labetalol. Lipitor. IV antibiotics as ordered. DVT and GI prophylactics. IV Hydralazine for SBP >170. Additional plan as per the hospital course. Dietary Evaluation Review Comments: Continue current plan of care Expected Outcomes/Goals: Pt will meet >75% estimated needs Fu 3-5 days Plan discussed with: Patient MARÍA MIGUEL MD Jul 21, 2024 18:22
--- NOTE | 2024-07-21 20:39 | DVHPN2 ---
Progress Note - Dictate Date Seen: Jul 21, 2024 Medical Necessity Reason Pt with a Central, PICC or Fol: Yes The following are medically ne: Central Line, South Catheter Reason for south catheter: Strict I&O Subjective She is awake and alert and communicating appropriately Patient has multi focal pneumonia on IV antibiotics Labs are stable; midline placed, right IJ removed Patient reports a previous colonoscopy about five years ago which was negative, she has not had a recent endoscopy No upper GI bleed coffee-ground emesis or melena reported vital signs Vital Sign Date Time Temp Pulse Resp B/P (MAP) Pulse Ox O2 Delivery O2 Flow Rate FiO2 07/21/24 18:34 89 18 100 07/21/24 18:29 Room Air 0.0 07/21/24 18:29 21 07/21/24 17:00 97.5 129/72 (91) 97.5 Total Intake and Output 07/20/24 07/20/24 07/21/24 15:00 23:00 07:00 Intake Total 150 ml 100 ml 180 ml Output Total 1600 ml Balance 150 ml 100 ml -1420 ml medications Current Medications Medications Dose Ordered Sig/Ginger Route Start Time Stop Time Status Last Admin Dose Admin Atorvastatin Calcium 40 mg HS PO 07/06/24 22:00 07/20/24 21:18 40 MG Gabapentin 400 mg BID PO 07/06/24 22:00 Hold Levothyroxine Sodium 75 mcg QAM@0600 PO 07/07/24 06:00 07/21/24 05:39 75 MCG Montelukast Sodium 10 mg HS PO 07/06/24 22:00 07/20/24 21:18 10 MG Ondansetron HCl 4 mg Q4HP PRN IV 07/06/24 19:00 07/21/24 12:42 4 MG Acetaminophen 650 mg Q6HP PRN PO 07/06/24 19:00 07/20/24 15:58 650 MG Pantoprazole Sodium 40 mg DAILY IV 07/09/24 10:00 07/21/24 09:29 40 MG Docusate Sodium 100 mg BIDPRN PRN PO 07/08/24 12:45 07/09/24 10:25 100 MG Hydralazine HCl 10 mg Q6HP PRN IV 07/09/24 18:00 07/14/24 06:52 10 MG Carbamazepine 200 mg BID PO 07/09/24 22:00 4/8/25 09:31 200 MG Enoxaparin Sodium 40 mg DAILY SC 07/13/24 10:00 UNV Enoxaparin Sodium 30 mg DAILY SC 07/13/24 10:00 07/21/24 09:30 30 MG Labetalol HCl 10 mg Q2HPRN PRN IV 07/14/24 08:45 Nystatin 5 ml QID MT 07/14/24 12:00 07/21/24 18:29 5 ML Albuterol 2.5 mg Q6HR NEB 07/15/24 12:00 07/21/24 18:29 2.5 MG Ipratropium [place] 0.5 mg Q6HR NEB 07/15/24 12:00 07/21/24 18:29 0.5 MG Epoetin Julito-epbx 4,000 unit TUTHSA@2100 SC 07/16/24 21:00 07/18/24 21:31 4,000 UNIT Amlodipine Besylate 10 mg DAILY PO 07/18/24 10:00 07/21/24 09:30 10 MG Ceftriaxone Sodium 50 ml @ 100 mls/hr DAILY@09 IV 07/18/24 09:00 07/21/24 09:27 100 MLS/HR Loperamide HCl 2 mg Q6HPRN PRN PO 07/21/24 12:15 07/21/24 16:06 2 MG objective GEN: intubated sedated HEENT: NC/AT; MMM. CV: RRR, no m/r/g. LUNGS: Decreased breath sound ABD: Hypoactive bowel sounds, no rigidity no distention, soft EXT: skin Warm, well perfused. no rashes. No clubbing, cyanosis, or edema. laboratory and microbiology Laboratory Tests 07/20/24 05:11 Test 07/20/24 05:11 Range/Units Serum Glucose 91 74-106 mg/dL Problems(with codes): (1) Multifocal pneumonia (2) N&V (nausea and vomiting) (3) Cholelithiasis (4) Abdominal pain (5) Anemia (6) Sepsis due to urinary tract infection Prognosis Plan Monitor labs Deescalate antibiotic therapy Patient is on oral nystatin swish and swallow Advance diet as tolerated I will follow up patient with you Supportive care from a GI point of view at this time Dietary Evaluation Review Comments: Continue current plan of care Expected Outcomes/Goals: Pt will meet >75% estimated needs Fu 3-5 days Plan discussed with: Patient ASHLEIGH VILLANUEVA MD Jul 21, 2024 20:39
--- NOTE | 2024-07-21 21:03 | DVHPN2 ---
Progress Note - Dictate Date Seen: Jul 21, 2024 Medical Necessity Reason Pt with a Central, PICC or Fol: Yes The following are medically ne: Central Line, South Catheter Reason for south catheter: Strict I&O Subjective Patient seen and examined at bedside. Currently breathing on room air. Overnight events reviewed. vital signs Vital Sign Date Time Temp Pulse Resp B/P (MAP) Pulse Ox O2 Delivery O2 Flow Rate FiO2 07/21/24 18:34 89 18 100 07/21/24 18:29 Room Air 0.0 07/21/24 18:29 21 07/21/24 17:00 97.5 129/72 (91) 97.5 Total Intake and Output 07/20/24 07/20/24 07/21/24 15:00 23:00 07:00 Intake Total 150 ml 100 ml 180 ml Output Total 1600 ml Balance 150 ml 100 ml -1420 ml medications Current Medications Medications Dose Ordered Sig/Ginger Route Start Time Stop Time Status Last Admin Dose Admin Atorvastatin Calcium 40 mg HS PO 07/06/24 22:00 07/20/24 21:18 40 MG Gabapentin 400 mg BID PO 07/06/24 22:00 Hold Levothyroxine Sodium 75 mcg QAM@0600 PO 07/07/24 06:00 07/21/24 05:39 75 MCG Montelukast Sodium 10 mg HS PO 07/06/24 22:00 07/20/24 21:18 10 MG Ondansetron HCl 4 mg Q4HP PRN IV 07/06/24 19:00 07/21/24 12:42 4 MG Acetaminophen 650 mg Q6HP PRN PO 07/06/24 19:00 07/20/24 15:58 650 MG Pantoprazole Sodium 40 mg DAILY IV 07/09/24 10:00 07/21/24 09:29 40 MG Docusate Sodium 100 mg BIDPRN PRN PO 07/08/24 12:45 07/09/24 10:25 100 MG Hydralazine HCl 10 mg Q6HP PRN IV 07/09/24 18:00 07/14/24 06:52 10 MG Carbamazepine 200 mg BID PO 07/09/24 22:00 07/21/24 09:31 200 MG Enoxaparin Sodium 40 mg DAILY SC 07/13/24 10:00 UNV Enoxaparin Sodium 30 mg DAILY SC 07/13/24 10:00 07/21/24 09:30 30 MG Labetalol HCl 10 mg Q2HPRN PRN IV 07/14/24 08:45 Nystatin 5 ml QID MT 07/14/24 12:00 07/21/24 18:29 5 ML Albuterol 2.5 mg Q6HR NEB 07/15/24 12:00 07/21/24 18:29 2.5 MG Ipratropium [place] 0.5 mg Q6HR NEB 07/15/24 12:00 07/21/24 18:29 0.5 MG Epoetin Julito-epbx 4,000 unit TUTHSA@2100 SC 07/16/24 21:00 07/18/24 21:31 4,000 UNIT Amlodipine Besylate 10 mg DAILY PO 07/18/24 10:00 07/21/24 09:30 10 MG Ceftriaxone Sodium 50 ml @ 100 mls/hr DAILY@09 IV 07/18/24 09:00 07/21/24 09:27 100 MLS/HR Loperamide HCl 2 mg Q6HPRN PRN PO 07/21/24 12:15 07/21/24 16:06 2 MG objective Gen.: Patient lying in bed in no apparent distress. On room air. Head: Normocephalic, atraumatic. Eyes: EOMI/PERRLA. Ears: Normal hearing. Normal anatomy. Neck/trachea: Trachea midline, supple. Nose: Normal external anatomy. Mouth: Moist mucous membranes. Chest: Decreased air entry bilaterally. No wheezing or rhonchi. Cardiovascular: Positive S1, positive S2. Regular rate and rhythm. Abdomen: Positive bowel sounds in all 4 quadrants. Soft, non-tender, non- distended. : Deferred. Rectal: Deferred. Skin: Warm, dry. Intact. Extremities: 2+ radial pulses bilaterally. No lower extremity edema. Neuro: Awake, alert, oriented x3. No gross motor or sensory deficits. Cranial nerves II through XII intact. Gait not assessed. laboratory and microbiology Laboratory Tests 07/20/24 05:11 Test 07/20/24 05:11 Range/Units Serum Glucose 91 74-106 mg/dL Assessment/Plan Impression: Acute hypoxic respiratory failure Aspiration pneumonia and aspiration pneumonitis Shock Chronic kidney disease Hypokalemia Chronic anemia Elevated troponin. Constipation Events: Remains on room air. Supplemental oxygen PRN No distress. Off pressors, hemodynamically stable. Continue antibiotics Continue bronchodilators Nystatin for thrush. Incentive spirometry Antiepileptic medications Monitor hemoglobin PT/OT GI prophylaxis - Protonix. DVT prophylaxis - Lovenox. S/p therapeutic bronchoscopy on 07/14/24, cleared secretions Patient tolerated the procedure well. Please see separate procedure note for details. Labs and imaging reviewed. Rest of plan as noted below Plan: S/p extubation on 07/16/24 Supplemental oxygen PRN Titrate to keep O2 sats above 92%. Continue antibiotics. F/u cultures. Pressors if necessary for hemodynamic support Titrate to keep mean arterial pressure greater than 65 mmHg. Monitor renal function Monitor electrolytes. Supplement as necessary. Monitor ins and outs. Accu-Cheks, ISS PRN. S/p bronchoscopy with RML BAL on 07/11/24 - see separate procedure note for details Follow up BAL cultures - presumptive Zuleyka albicans. GI prophylaxis - Protonix. DVT prophylaxis - Lovenox. Prognosis: Poor given patient's multiple co-morbidities. Rest of plan per hospitalist and other consultants. Thank you Dr. Bhatia, for allowing me to participate in this patient's care. Further recommendations will depend on the patient's clinical course. Please do not hesitate to contact me if you have any questions or concerns. This medical document was created using an electronic medical record system with [employer] dictation system. Although these documentations are being carefully reviewed, there may still be some phonetic and typographical changes. The errors are purely typographical, due to imperfection on the software program, and do not reflect any compromise in the patient's medical care. Dietary Evaluation Review Comments: Continue current plan of care Expected Outcomes/Goals: Pt will meet >75% estimated needs Fu 3-5 days Plan discussed with: Patient, Other (KATHE Mckeon) ABIMBOLA PAYNE MD Jul 21, 2024 21:03
[2024-07-22] VITALS (24 sets, daily range): BP systolic 123–139; BP diastolic 65–79; PULSE 70–108; RESP 16–20; TEMP 98–98.5; O2SAT 93–100
--- NOTE | 2024-07-22 14:03 | DVHPN2 ---
Subjective Patient denies any symptoms today. Reviewed: Care Plan, H&P, Labs, Medications, Previous Orders, Radiology Changes from previous H/P or p: No Changes General: Per HPI Objective Vitals Vital Signs Date Time Temp Pulse Resp B/P (MAP) Pulse Ox O2 Delivery O2 Flow Rate FiO2 07/22/24 12:00 18 97 Room Air* 0 21 07/22/24 11:44 70 07/22/24 09:28 139/70 07/22/24 08:45 98.1 98.1 Intake/Output Intake and Output 07/22/24 07:00 Intake Total 600 ml Output Total 2620 ml Balance -2020 ml Intake Oral 600 ml Output Urine Total 2620 ml # Bowel Movements 3 General Appearance: Alert, Oriented X3, Cooperative, mild distress HEENT: Atraumatic, PERRLA Lungs: Clear to auscultation, Normal air movement Cardiovascular: Normal S1, Normal S2 Abdomen: Normal bowel sounds, Soft, No tenderness, No hepatospenomegaly Genitourinary: No Apparent Abnormalities (Gastelum catheter) Neuro: Cranial nerves 3-12 NL Skin: Dry, Intact Psych/Mental Status: Other (Unable to assess) Medications Current Medications Medications Dose Ordered Sig/Ginger Route Start Time Stop Time Status Last Admin Dose Admin Atorvastatin Calcium 40 mg HS PO 07/06/24 22:00 07/21/24 21:19 40 MG Gabapentin 400 mg BID PO 07/06/24 22:00 Hold Levothyroxine Sodium 75 mcg QAM@0600 PO 07/07/24 06:00 07/22/24 06:22 75 MCG Montelukast Sodium 10 mg HS PO 07/06/24 22:00 07/21/24 21:19 10 MG Ondansetron HCl 4 mg Q4HP PRN IV 07/06/24 19:00 07/21/24 12:42 4 MG Acetaminophen 650 mg Q6HP PRN PO 07/06/24 19:00 07/20/24 15:58 650 MG Pantoprazole Sodium 40 mg DAILY IV 07/09/24 10:00 07/22/24 09:27 40 MG Docusate Sodium 100 mg BIDPRN PRN PO 07/08/24 12:45 07/09/24 10:25 100 MG Hydralazine HCl 10 mg Q6HP PRN IV 07/09/24 18:00 07/14/24 06:52 10 MG Carbamazepine 200 mg BID PO 07/09/24 22:00 07/22/24 09:29 200 MG Enoxaparin Sodium 40 mg DAILY SC 07/13/24 10:00 UNV Enoxaparin Sodium 30 mg DAILY SC 07/13/24 10:00 07/22/24 09:28 30 MG Nystatin 5 ml QID MT 07/14/24 12:00 07/22/24 12:26 5 ML Albuterol 2.5 mg Q6HR NEB 07/15/24 12:00 07/22/24 11:34 2.5 MG Ipratropium [place] 0.5 mg Q6HR NEB 07/15/24 12:00 07/22/24 11:34 0.5 MG Epoetin Julito-epbx 4,000 unit TUTHSA@2100 SC 07/16/24 21:00 07/21/24 21:17 4,000 UNIT Amlodipine Besylate 10 mg DAILY PO 07/18/24 10:00 07/22/24 09:28 10 MG Loperamide HCl 2 mg Q6HPRN PRN PO 07/21/24 12:15 07/22/24 01:25 2 MG Laboratory Results Laboratory Tests 07/20/24 05:11 Urinalysis Test 07/06/24 19:30 Urine Color Colorless (Yellow) Urine Clarity Clear (Clear) Urine pH 5.0 (5.0-9.0) Urine Specific [place] 1.006 (1.001-1.035) Urine Protein Negative (Negative) Urine Ketones Negative (Negative) Urine Blood Negative /uL (Negative) Urine Nitrite Negative (Negative) Urine Bilirubin Negative (Negative) Urine Urobilinogen Normal mg/dL (Negative) Urine Leukocyte Esterase Negative /uL (Negative) Urine RBC <1 /hpf (0 - 4) Urine Microscopic WBC 2 /HPF (0-5) Urine Squamous Epithelial Cells Few /hpf (<5) Urine Bacteria None seen /hpf (None Seen) Urine Glucose Normal mg/dL (Normal) Microbiology Microbiology Date/Time Source Procedure Growth Status 07/11/24 12:00 Bronchial Washings Gram Stain - Final Resulted 07/11/24 12:00 Respiratory Culture - Preliminary Presumptive Zuleyka albicans Resulted 07/09/24 15:25 Trachea Gram Stain - Final Complete 07/09/24 15:25 Trachea Respiratory Culture - Final Complete Labs and/or images reviewed: Labs reviewed by me, Image(s) reviewed by me Assessment/Plan Assessment/Plan Impression: -abdominal pain, questionably secondary to cholelithiasis versus constipation -constipation -cholelithiasis -obesity -acute respiratory failure with mechanical ventilation -multifocal pneumonia, probable aspiration etiology -acute kidney injury, vasomotor nephropathy, underlying CKD stage 4 -hyperchloremic metabolic acidosis -septic shock -anemia of chronic disease Plan: Events: No events overnight. -patient only ambulating 3 ft. -stop antibiotics -[facility]ed [facility] for which she was open minded to. -social service consultation -physical therapy consultation -transfer to Medical/Surgical unit Total time spent with patient discussing and formulating plan of care: 35 minutes. This medical document was created using an electronic medical record system with [employer] dictation system. Although this document has been carefully reviewed, there may still be some phonetic and typographical errors. These areas are purely typographical due to imperfections of the software programs, and do not reflect any compromise in the patient's medical care. Plan discussed with: Patient, Other (RN) My Orders Orders - DIANE FRANKLIN NP Procedure Category Date Status Time * Manager Garage CONS 07/22/24 Transmitted Consult Transfer Orders XFER 07/22/24 Transmitted 13:57 Date of Service: Jul 22, 2024 Billing Provider: DIANE FRANKLIN NP Common Visit Codes: [id number] INP/OBS CARE(HIGH) DIANE FRANKLIN NP Jul 22, 2024 14:03
--- NOTE | 2024-07-22 17:15 | DVHPN2 ---
Progress Note - Dictate Date Seen: Jul 22, 2024 Medical Necessity Reason Pt with a Central, PICC or Fol: Yes The following are medically ne: Central Line, South Catheter Reason for south catheter: Strict I&O Subjective Patient was seen and evaluated in follow up. No overnight events. Patient is complaining of generalized pain. Patient ambulating only 3 feet. Patient is considering SNF. Telemetry reviewed. vital signs Vital Sign Date Time Temp Pulse Resp B/P (MAP) Pulse Ox O2 Delivery O2 Flow Rate FiO2 07/22/24 12:00 18 97 Room Air* 0 21 07/22/24 11:44 70 07/22/24 09:28 139/70 07/22/24 08:45 98.1 98.1 Total Intake and Output 07/21/24 07/21/24 07/22/24 15:00 23:00 07:00 Intake Total 600 ml Output Total 2620 ml Balance -2020 ml medications Current Medications Medications Dose Ordered Sig/Ginger Route Start Time Stop Time Status Last Admin Dose Admin Atorvastatin Calcium 40 mg HS PO 07/06/24 22:00 07/21/24 21:19 40 MG Gabapentin 400 mg BID PO 07/06/24 22:00 Hold Levothyroxine Sodium 75 mcg QAM@0600 PO 07/07/24 06:00 07/22/24 06:22 75 MCG Montelukast Sodium 10 mg HS PO 07/06/24 22:00 07/21/24 21:19 10 MG Ondansetron HCl 4 mg Q4HP PRN IV 07/06/24 19:00 07/21/24 12:42 4 MG Acetaminophen 650 mg Q6HP PRN PO 07/06/24 19:00 07/20/24 15:58 650 MG Pantoprazole Sodium 40 mg DAILY IV 07/09/24 10:00 07/22/24 09:27 40 MG Docusate Sodium 100 mg BIDPRN PRN PO 07/08/24 12:45 07/09/24 10:25 100 MG Hydralazine HCl 10 mg Q6HP PRN IV 07/09/24 18:00 07/14/24 06:52 10 MG Carbamazepine 200 mg BID PO 07/09/24 22:00 07/22/24 09:29 200 MG Enoxaparin Sodium 40 mg DAILY SC 07/13/24 10:00 UNV Enoxaparin Sodium 30 mg DAILY SC 07/13/24 10:00 07/22/24 09:28 30 MG Labetalol HCl 10 mg Q2HPRN PRN IV 07/14/24 08:45 Nystatin 5 ml QID MT 07/14/24 12:00 07/22/24 12:26 5 ML Albuterol 2.5 mg Q6HR NEB 07/15/24 12:00 07/22/24 11:34 2.5 MG Ipratropium [place] 0.5 mg Q6HR NEB 07/15/24 12:00 07/22/24 11:34 0.5 MG Epoetin [place]-epbx 4,000 unit TUTHSA@2100 SC 07/16/24 21:00 07/21/24 21:17 4,000 UNIT Amlodipine Besylate 10 mg DAILY PO 07/18/24 10:00 07/22/24 09:28 10 MG Ceftriaxone Sodium 50 ml @ 100 mls/hr DAILY@09 IV 07/18/24 09:00 07/22/24 09:27 100 MLS/HR Loperamide HCl 2 mg Q6HPRN PRN PO 07/21/24 12:15 07/22/24 01:25 2 MG objective GENERAL: Awake, alert, oriented. LUNGS: Decreased breath sounds. CARDIOVASCULAR: Heart sounds are good. ABDOMEN: Soft. laboratory and microbiology Laboratory Tests 07/20/24 05:11 Test 07/20/24 05:11 Range/Units Serum Glucose 91 74-106 mg/dL Problem List Acute hypoxic respiratory failure due to aspiration pneumonia/aspiration pneumonitis. Aspiration pneumonia. Intractable vomiting. Shock, septic possible. Symptomatic cholelithiasis possible. Chronic kidney disease. Hypokalemia. Chronic anemia. History of left kidney mass status post nephrectomy 2021 [facility]. Hypertension. Diverticulosis. Fatty liver. Persisting constipation. Elevated troponin. Episode of SVT. Assessment/Plan Continued all current supportive medical care. Amlodipine. Lipitor. DVT and GI prophylactics. IV Hydralazine for SBP >170. Additional plan as per the hospital course. Dietary Evaluation Review Comments: Continue current plan of care Expected Outcomes/Goals: Pt will meet >75% estimated needs Fu 3-5 days Plan discussed with: Patient MARÍA MIGUEL MD Jul 22, 2024 13:31
--- NOTE | 2024-07-22 18:41 | DVHPN2 ---
Progress Note - Dictate Date Seen: Jul 22, 2024 Medical Necessity Reason Pt with a Central, PICC or Fol: Yes The following are medically ne: Central Line, South Catheter Reason for south catheter: Strict I&O Subjective Patient seen and examined at bedside. Breathing comfortably on room air. Overnight events reviewed. vital signs Vital Sign Date Time Temp Pulse Resp B/P (MAP) Pulse Ox O2 Delivery O2 Flow Rate FiO2 07/22/24 16:30 98.5 86 17 123/69 (87) 95 98.5 07/22/24 15:44 Room Air* 0 21 Total Intake and Output 07/21/24 07/21/24 07/22/24 15:00 23:00 07:00 Intake Total 600 ml Output Total 2620 ml Balance -2020 ml medications Current Medications Medications Dose Ordered Sig/Ginger Route Start Time Stop Time Status Last Admin Dose Admin Atorvastatin Calcium 40 mg HS PO 07/06/24 22:00 07/21/24 21:19 40 MG Gabapentin 400 mg BID PO 07/06/24 22:00 Hold Levothyroxine Sodium 75 mcg QAM@0600 PO 07/07/24 06:00 07/22/24 06:22 75 MCG Montelukast Sodium 10 mg HS PO 07/06/24 22:00 07/21/24 21:19 10 MG Ondansetron HCl 4 mg Q4HP PRN IV 07/06/24 19:00 07/21/24 12:42 4 MG Acetaminophen 650 mg Q6HP PRN PO 07/06/24 19:00 07/22/24 17:54 650 MG Pantoprazole Sodium 40 mg DAILY IV 07/09/24 10:00 07/22/24 09:27 40 MG Docusate Sodium 100 mg BIDPRN PRN PO 07/08/24 12:45 07/09/24 10:25 100 MG Hydralazine HCl 10 mg Q6HP PRN IV 07/09/24 18:00 07/14/24 06:52 10 MG Carbamazepine 200 mg BID PO 07/09/24 22:00 07/22/24 09:29 200 MG Enoxaparin Sodium 40 mg DAILY SC 07/13/24 10:00 UNV Enoxaparin Sodium 30 mg DAILY SC 07/13/24 10:00 07/22/24 09:28 30 MG Nystatin 5 ml QID MT 07/14/24 12:00 07/22/24 17:54 5 ML Albuterol 2.5 mg Q6HR NEB 07/15/24 12:00 07/22/24 11:34 2.5 MG Ipratropium [place] 0.5 mg Q6HR NEB 07/15/24 12:00 07/22/24 11:34 0.5 MG Epoetin Julito-epbx 4,000 unit TUTHSA@2100 [place] 07/16/24 21:00 07/21/24 21:17 4,000 UNIT Amlodipine Besylate 10 mg DAILY PO 07/18/24 10:00 07/22/24 09:28 10 MG Loperamide HCl 2 mg Q6HPRN PRN PO 07/21/24 12:15 07/22/24 01:25 2 MG objective Gen.: Patient lying in bed in no apparent distress. On room air. Head: Normocephalic, atraumatic. Eyes: EOMI/PERRLA. Ears: Normal hearing. Normal anatomy. Neck/trachea: Trachea midline, supple. Nose: Normal external anatomy. Mouth: Moist mucous membranes. Chest: Decreased air entry bilaterally. No wheezing or rhonchi. Cardiovascular: Positive S1, positive S2. Regular rate and rhythm. Abdomen: Positive bowel sounds in all 4 quadrants. Soft, non-tender, non- distended. : Deferred. Rectal: Deferred. Skin: Warm, dry. Intact. Extremities: 2+ radial pulses bilaterally. No lower extremity edema. Neuro: Awake, alert, oriented x3. No gross motor or sensory deficits. Cranial nerves II through XII intact. Gait not assessed. laboratory and microbiology Laboratory Tests 07/20/24 05:11 Test 07/20/24 05:11 Range/Units Serum Glucose 91 74-106 mg/dL Assessment/Plan Impression: Acute hypoxic respiratory failure Aspiration pneumonia and aspiration pneumonitis Shock Chronic kidney disease Hypokalemia Chronic anemia Elevated troponin. Constipation Events: Remains on room air. Supplemental oxygen PRN No distress. Continue antibiotics Continue bronchodilators Nystatin for thrush. Incentive spirometry Antiepileptic medications Monitor hemoglobin PT/OT GI prophylaxis - Protonix. DVT prophylaxis - Lovenox. Disposition per hospitalist. S/p therapeutic bronchoscopy on 07/14/24, cleared secretions Patient tolerated the procedure well. Please see separate procedure note for details. Labs and imaging reviewed. Rest of plan as noted below Plan: S/p extubation on 07/16/24 Supplemental oxygen PRN Titrate to keep O2 sats above 92%. Continue antibiotics. F/u cultures. Pressors if necessary for hemodynamic support Titrate to keep mean arterial pressure greater than 65 mmHg. Monitor renal function Monitor electrolytes. Supplement as necessary. Monitor ins and outs. Accu-Cheks, ISS PRN. S/p bronchoscopy with RML BAL on 07/11/24 - see separate procedure note for details Follow up BAL cultures - presumptive Zuleyka albicans. GI prophylaxis - Protonix. DVT prophylaxis - Lovenox. Prognosis: Guarded given patient's multiple co-morbidities. Rest of plan per hospitalist and other consultants. Thank you Dr. Bhatia, for allowing me to participate in this patient's care. Further recommendations will depend on the patient's clinical course. Please do not hesitate to contact me if you have any questions or concerns. This medical document was created using an electronic medical record system with [employer] computerized dictation system. Although these documentations are being carefully reviewed, there may still be some phonetic and typographical changes. The errors are purely typographical, due to imperfection on the software program, and do not reflect any compromise in the patient's medical care. Dietary Evaluation Review Comments: Continue current plan of care Expected Outcomes/Goals: Pt will meet >75% estimated needs Fu 3-5 days Plan discussed with: Patient, Other (KATHE Winn) ABIMBOLA PAYNE MD Jul 22, 2024 18:41
--- NOTE | 2024-07-22 23:32 | DVHPN2 ---
Progress Note - Dictate Date Seen: Jul 22, 2024 Medical Necessity Reason Pt with a Central, PICC or Fol: Yes The following are medically ne: Central Line, South Catheter Reason for south catheter: Strict I&O Subjective She is awake and alert OOB to chair No GI symptoms Tolerating diet vital signs Vital Sign Date Time Temp Pulse Resp B/P (MAP) Pulse Ox O2 Delivery O2 Flow Rate FiO2 07/22/24 21:00 96 07/22/24 21:00 98.4 87 19 125/65 (85) 98.4 07/22/24 20:00 Room Air* 0 21 Total Intake and Output 07/21/24 07/21/24 07/22/24 14:59 22:59 06:59 Intake Total 600 ml Output Total 2620 ml Balance -2020 ml medications Current Medications Medications Dose Ordered Sig/Ginger Route Start Time Stop Time Status Last Admin Dose Admin Atorvastatin Calcium 40 mg HS PO 07/06/24 22:00 07/22/24 21:18 40 MG Gabapentin 400 mg BID PO 07/06/24 22:00 Hold Levothyroxine Sodium 75 mcg QAM@0600 PO 07/07/24 06:00 07/22/24 06:22 75 MCG Montelukast Sodium 10 mg HS PO 07/06/24 22:00 07/22/24 21:18 10 MG Ondansetron HCl 4 mg Q4HP PRN IV 07/06/24 19:00 07/21/24 12:42 4 MG Acetaminophen 650 mg Q6HP PRN PO 07/06/24 19:00 07/22/24 17:54 650 MG Pantoprazole Sodium 40 mg DAILY IV 07/09/24 10:00 07/22/24 09:27 40 MG Docusate Sodium 100 mg BIDPRN PRN PO 07/08/24 12:45 07/09/24 10:25 100 MG Hydralazine HCl 10 mg Q6HP PRN IV 07/09/24 18:00 07/14/24 06:52 10 MG Carbamazepine 200 mg BID PO 07/09/24 22:00 07/22/24 21:18 200 MG Enoxaparin Sodium 40 mg DAILY SC 07/13/24 10:00 UNV Enoxaparin Sodium 30 mg DAILY SC 07/13/24 10:00 07/22/24 09:28 30 MG Nystatin 5 ml QID MT 07/14/24 12:00 07/22/24 21:18 5 ML Albuterol 2.5 mg Q6HR NEB 07/15/24 12:00 07/22/24 19:16 2.5 MG Ipratropium [place] 0.5 mg Q6HR NEB 07/15/24 12:00 07/22/24 19:16 0.5 MG Epoetin Julito-epbx 4,000 unit TUTHSA@2100 [place] 07/16/24 21:00 07/21/24 21:17 4,000 UNIT Amlodipine Besylate 10 mg DAILY PO 07/18/24 10:00 07/22/24 09:28 10 MG Loperamide HCl 2 mg Q6HPRN PRN PO 07/21/24 12:15 07/22/24 21:25 2 MG objective GEN: Awake alert HEENT: NC/AT; MMM. CV: RRR, no m/r/g. LUNGS: Clear ABD: no distention, soft EXT: skin Warm, well perfused. no rashes. No clubbing, cyanosis, or edema. laboratory and microbiology Laboratory Tests 07/20/24 05:11 Test 07/20/24 05:11 Range/Units Serum Glucose 91 74-106 mg/dL Problems(with codes): (1) Multifocal pneumonia (2) N&V (nausea and vomiting) (3) Cholelithiasis (4) Abdominal pain (5) Anemia Prognosis Plan Advance diet as tolerated Continue supportive care Continue physical therapy Discharge planning to [facility] Outpatient follow up with me in 6-8 weeks or as needed Dietary Evaluation Review Comments: Continue current plan of care Expected Outcomes/Goals: Pt will meet >75% estimated needs Fu 3-5 days Plan discussed with: Patient ASHLEIGH VILLANUEVA MD Jul 22, 2024 23:32
[2024-07-23] VITALS (14 sets, daily range): BP systolic 112–139; BP diastolic 63–85; PULSE 85–98; RESP 16–19; TEMP 97.6–98.5; O2SAT 94–100
--- NOTE | 2024-07-23 09:37 | DVHDS2 ---
Discharge Summary Date of Admission Jul 06, 2024 at 18:52 Date of Discharge: Jul 23, 2024 Admitting Diagnosis Rule out urinary tract infection Labs/Diagnostic Data: Laboratory Results Test 07/21/24 05:20 07/20/24 05:11 07/18/24 09:47 07/17/24 03:00 POC Glucose 98 mg/dl (70-106) White Blood Count 6.5 10^3/uL (4.4-10.8) Red Blood Count 2.75 10^6/uL (4.0-5.20) Hemoglobin 8.3 g/dL (12.2-16.2) Hematocrit 23.8 % (36.0-46.0) Mean Corpuscular Volume 86.3 fL (80.0-100.0) Mean Corpuscular Hemoglobin 30.1 pg (28.0-32.0) Mean Corpuscular Hemoglobin Concent 34.9 g/dL (32.0-36.0) Red Cell Distribution Width 16.1 % (11.8-14.3) Platelet Count 266 10^3/uL (140-450) Mean Platelet Volume 7.0 fL (6.9-10.8) Neutrophils (%) (Auto) % (37.0-80.0) Lymphocytes (%) (Auto) % (10.0-50.0) Monocytes (%) (Auto) % (0.0-12.0) Basophils (%) (Auto) % (0.0-2.0) Neutrophils # (Auto) 10 ^3/uL (1.6-8.6) Lymphocytes # (Auto) 10 ^3/uL (0.4-5.4) Monocytes # (Auto) 10 ^3/uL (0-1.3) Differential Total Cells Counted 100.0 (100) Neutrophils % (Manual) 53 (37.0-80.0) Band Neutrophils % (Manual) 0 Lymphocytes % (Manual) 35 (10.0-50.0) Monocytes % (Manual) 8 (0-12) Eosinophils % (Manual) 1 (0-7) Basophils % (Manual) 0 (0.0-2.0) Metamyelocytes % (manual) 0 Myelocytes % (Manual) 0 Promyelocytes % (Manual) 0 Blast Cells % (Manual) 0 Reactive Lymphocytes 3 Platelet Estimate Adequate Anisocytosis (manual) Slight Sodium Level 140 mmol/L (136-145) Potassium Level 3.4 mmol/L (3.5-5.1) Chloride Level 109 mmol/L (98-107) Carbon Dioxide Level 21 mmol/L (20-31) Anion Gap 10 (5-15) Blood Urea Nitrogen 58 mg/dL (9-23) Creatinine 2.58 mg/dL (0.550-1.02) Glomerular Filtration Rate Calc 19 mL/min (>90) BUN/Creatinine Ratio 22.5 (10.0-20.0) Serum Glucose 91 mg/dL (74-106) Calcium Level 9.4 mg/dL (8.7-10.4) Blood Gas Specimen Type Arterial Blood Gas Sample Site Right radial Blood Gas Patient Temperature 37.0 Arterial Blood Date Drawn [id number] Arterial Blood pH 7.401 (7.350-7.450) Arterial Blood Partial Pressure CO2 32.2 mmHg (32.0-45.0) Arterial Blood Partial Pressure O2 76.3 mmHg (83.0-108.0) Arterial Blood HCO3 19.5 mmol/L (21.0-28.0) Arterial Blood Oxygen Saturation 93.8 % (94.0-98.0) Arterial Blood Base Excess -4.6 mmol/L (-2.0-3.0) Arterial Blood Oxyhemoglobin 93.2 % (94.0-98.0) Arterial Blood Carboxyhemoglobin 0.2 % (0.5-1.5) Arterial Blood Methemoglobin 0.4 % (0.0-1.5) Farhat Test Yes Blood Gas Total Hemoglobin 9.10 g/dL (12.0-16.0) Blood Gas Liter Flow 1.00 Blood Gas Modality Nasal cannula FiO2 % 24.0 Target Cells Few Schistocytes Few Test 07/16/24 13:37 07/16/24 06:22 07/15/24 03:35 07/14/24 09:22 Blood Gas Pressure Support 8 Blood Gas PEEP or CPAP 6.0 Blood Gas Set Respiration Rate 22.0 Blood Gas Spontaneous Rate 22 Blood Gas Tidal Volume 400.0 Blood Gas Inspiratory Pressure 20.0 Bl Gas Inspiratory/Expiratory Ratio 1:6.1 Specimen Drawn By heriberto rt Eosinophils (%) (Auto) 1.7 % (0.0-7.0) Eosinophils # (Auto) 0.1 10 ^3/uL (0-0.8) Basophils # (Auto) 0 10 ^3/uL (0-0.2) Nucleated Red Blood Cells 0.2 % Total Bilirubin 0.5 mg/dL (0.2-1.0) Aspartate Amino Transferase (AST) 35 U/L (13-40) Alanine Aminotransferase (ALT) 15 U/L (7-40) Alkaline Phosphatase 71 U/L (46-116) Total Protein 6.0 g/dL (5.7-8.2) Albumin 3.7 g/dL (3.2-4.8) Vitamin B12 Level 2949 pg/mL (211-911) Vitamin D 25-Hydroxy 63 ng/mL (.) 25-Hydroxy Vitamin D2 2.1 ng/mL (.) 25-Hydroxy Vitamin D3 61 ng/mL (.) Test 07/14/24 03:32 07/13/24 03:11 07/13/24 02:30 07/12/24 03:30 Thyroid Stimulating Hormone (TSH) 2.19 uIU/mL (0.55-4.78) Phosphorus Level 4.2 mg/dL (2.4-5.1) Magnesium Level 2.2 mg/dL (1.6-2.6) Triglycerides Level 61 mg/dL (< 150) Stool Occult Blood Negative (Negative) Stool Occult Blood Sample #3 (Negative) Iron Level 18 ug/dL (50-170) Total Iron Binding Capacity 183 ug/dL (250-425) Percent Iron Saturation 9.8 % (15-50) Ferritin 269.3 ng/mL (10-291) Test 07/10/24 19:38 07/06/24 19:30 Troponin I High Sensitivity 29 ng/L (</=34) Urine Color Colorless (Yellow) Urine Clarity Clear (Clear) Urine pH 5.0 (5.0-9.0) Urine Specific [place] 1.006 (1.001-1.035) Urine Protein Negative (Negative) Urine Ketones Negative (Negative) Urine Blood Negative /uL (Negative) Urine Nitrite Negative (Negative) Urine Bilirubin Negative (Negative) Urine Urobilinogen Normal mg/dL (Negative) Urine Leukocyte Esterase Negative /uL (Negative) Urine RBC <1 /hpf (0 - 4) Urine Microscopic WBC 2 /HPF (0-5) Urine Squamous Epithelial Cells Few /hpf (<5) Urine Bacteria None seen /hpf (None Seen) Urine Glucose Normal mg/dL (Normal) Other Laboratory Tests 07/20/24 05:11 Brief Hx & Hospital Course: History of Present Illness 74-year-old female presents for evaluation of right-sided flank pain. Patient reports a three day history of sharp right-sided flank pain with associated dysuria and urinary frequency. Reports occasional chills. Denies hematuria. No nausea or vomiting. No other acute complaints. Course of hospitalization: Patient had complicated hospitalization with patient having acute respiratory failure while on the commode, subsequently getting endotracheally intubated. Patient did have constipation while on commode, probably had vasovagal response with subsequent nonresponsiveness. Patient was found to have pneumonia, probable aspiration etiology. CT scan abdomen and pelvis performed. Noted constipation. Patient was had HIDA scan which was negative for cholecystitis. Patient was successfully extubated, treated for her constipation, pneumonia. She was noted to have severe deconditioning despite physical therapy providing therapy twice a day. Long discussion was made with the patient and family by myself as well as case management regarding transitioning to [facility] facility for which all parties are agreeable. Patient will be discharged to [facility] facility once bed is available. Physical examination General: Alert and Oriented x3. No acute distress. Well-nourished. Eyes: EOMI. Anicteric. HENT: Moist mucous membranes. Lungs: Clear to auscultation bilaterally. No accessory muscle use. Cardiovascular: Regular rate and rhythm. No murmur. No JVD. Abdomen: Soft, non-tender and non-distended. No palpable masses. Extremities: No edema. Non-tender. Skin: No rashes or lesions. Warm. Neurologic: No focal neurological deficits. CN II-XII grossly intact, but not individually tested. Psychiatric: Cooperative. Appropriate mood and affect. Total time spent with patient discussing and formulating plan of care: 35 minutes. This medical document was created using an electronic medical record system with [employer] system. Although this document has been carefully reviewed, there may still be some phonetic and typographical errors. These areas are purely typographical due to imperfections of the software programs, and do not reflect any compromise in the patient's medical care. Consults/Reason for consult Pulmonology: Respiratory distress Gastroenterology: Abdominal pain Operations or Procedures Bronchoscopy Condition at Discharge: Guarded Final Diagnosis/Problems List Respiratory failure with pneumonia Secondary diagnosis: -abdominal pain, questionably secondary to cholelithiasis versus constipation -constipation -cholelithiasis -obesity -acute respiratory failure with mechanical ventilation -multifocal pneumonia, probable aspiration etiology -acute kidney injury, vasomotor nephropathy, underlying CKD stage 4 -hyperchloremic metabolic acidosis -septic shock -anemia of chronic disease Discharge Disposition: Long Term Facility Discharge Instruct/Medications Diet: Cardiac 2g Na,low cholest (2 gm sodium, low cholesterol), Renal Activity: No Restrictions, As Tolerated Follow Up/Referral: Per accepting provider Medications: Refer to medication reconciliation form 36 Discharge Statement: "Patient was advised to return to the ER or call 911 if any headaches, dizziness, shortness of breath, chest pain, abdominal pain, bleeding, fevers, or worsening of medical condition. Patient was counseled about treatment plan, medications, possible side effects, patientverbalized understanding. All questions were answered to the best of my ability. This discharge took greater then 30 minutes in planning, reviewing documentation, counseling the patient, and discussing with other team members." ASSESSMENT ASSESSMENT Assessment Date of Service: Jul 23, 2024 Billing Provider: DIANE FRANKLIN NP Common Visit Codes: 23865-TOJ/OBS DISCH DAY >30min DIANE FRANKLIN NP Jul 23, 2024 09:37
--- NOTE | 2024-07-23 18:10 | DVHPN2 ---
Progress Note - Dictate Date Seen: Jul 23, 2024 Medical Necessity Reason Pt with a Central, PICC or Fol: Yes The following are medically ne: Central Line, South Catheter Reason for south catheter: Strict I&O Subjective Patient seen and examined at bedside. Breathing comfortably on room air. Overnight events reviewed. vital signs Vital Sign Date Time Temp Pulse Resp B/P (MAP) Pulse Ox O2 Delivery O2 Flow Rate FiO2 07/23/24 16:40 98.0 85 16 119/63 (81) 96 98.0 07/23/24 07:56 Room Air* 0 21 Total Intake and Output 07/22/24 07/22/24 07/23/24 15:00 23:00 07:00 Intake Total 118 ml 290 ml 300 ml Output Total 850 ml 850 ml Balance 118 ml -560 ml -550 ml medications Current Medications Medications Dose Ordered Sig/Ginger Route Start Time Stop Time Status Last Admin Dose Admin Atorvastatin Calcium 40 mg HS PO 07/06/24 22:00 07/22/24 21:18 40 MG Gabapentin 400 mg BID PO 07/06/24 22:00 Hold Levothyroxine Sodium 75 mcg QAM@0600 PO 07/07/24 06:00 07/23/24 05:03 75 MCG Montelukast Sodium 10 mg HS PO 07/06/24 22:00 07/22/24 21:18 10 MG Ondansetron HCl 4 mg Q4HP PRN IV 07/06/24 19:00 07/21/24 12:42 4 MG Acetaminophen 650 mg Q6HP PRN PO 07/06/24 19:00 07/22/24 17:54 650 MG Pantoprazole Sodium 40 mg DAILY IV 07/09/24 10:00 07/23/24 09:21 40 MG Docusate Sodium 100 mg BIDPRN PRN PO 07/08/24 12:45 07/09/24 10:25 100 MG Hydralazine HCl 10 mg Q6HP PRN IV 07/09/24 18:00 07/14/24 06:52 10 MG Carbamazepine 200 mg BID PO 07/09/24 22:00 07/23/24 09:23 200 MG Enoxaparin Sodium 40 mg DAILY SC 07/13/24 10:00 UNV Enoxaparin Sodium 30 mg DAILY SC 07/13/24 10:00 07/23/24 09:22 30 MG Nystatin 5 ml QID MT 07/14/24 12:00 07/23/24 12:33 5 ML Albuterol 2.5 mg Q6HR NEB 07/15/24 12:00 07/23/24 13:10 2.5 MG Ipratropium [place] 0.5 mg Q6HR NEB 07/15/24 12:00 07/23/24 13:10 0.5 MG Epoetin Julito-epbx 4,000 unit TUTHSA@2100 [place] 07/16/24 21:00 07/21/24 21:17 4,000 UNIT Amlodipine Besylate 10 mg DAILY PO 07/18/24 10:00 07/23/24 09:23 10 MG Loperamide HCl 2 mg Q6HPRN PRN PO 07/21/24 12:15 07/23/24 12:44 2 MG objective Gen.: Patient lying in bed in no apparent distress. On room air. Head: Normocephalic, atraumatic. Eyes: EOMI/PERRLA. Ears: Normal hearing. Normal anatomy. Neck/trachea: Trachea midline, supple. Nose: Normal external anatomy. Mouth: Moist mucous membranes. Chest: Decreased air entry bilaterally. No wheezing or rhonchi. Cardiovascular: Positive S1, positive S2. Regular rate and rhythm. Abdomen: Positive bowel sounds in all 4 quadrants. Soft, non-tender, non- distended. : Deferred. Rectal: Deferred. Skin: Warm, dry. Intact. Extremities: 2+ radial pulses bilaterally. No lower extremity edema. Neuro: Awake, alert, oriented x3. No gross motor or sensory deficits. Cranial nerves II through XII intact. Gait not assessed. laboratory and microbiology Laboratory Tests 07/20/24 05:11 Test 07/20/24 05:11 Range/Units Serum Glucose 91 74-106 mg/dL Assessment/Plan Impression: Acute hypoxic respiratory failure Aspiration pneumonia and aspiration pneumonitis Shock Chronic kidney disease Hypokalemia Chronic anemia Elevated troponin. Constipation Events: Remains on room air. Supplemental oxygen PRN No distress. Continue bronchodilators Nystatin for thrush. Incentive spirometry Antiepileptic medications Head of bed elevation Aspiration precautions Monitor hemoglobin PT/OT GI prophylaxis - Protonix. DVT prophylaxis - Lovenox. Disposition per hospitalist. S/p therapeutic bronchoscopy on 07/14/24, cleared secretions Patient tolerated the procedure well. Please see separate procedure note for details. S/p bronchoscopy with RML BAL on 07/11/24 - see separate procedure note for details Labs and imaging reviewed. Rest of plan as noted below Plan: S/p extubation on 07/16/24 Supplemental oxygen PRN Titrate to keep O2 sats above 92%. IS Antiepileptic medications Pressors if necessary for hemodynamic support Titrate to keep mean arterial pressure greater than 65 mmHg. Monitor renal function Monitor electrolytes. Supplement as necessary. Monitor ins and outs. Accu-Cheks, ISS PRN. GI prophylaxis - Protonix. DVT prophylaxis - Lovenox. Prognosis: Guarded given patient's multiple co-morbidities. Rest of plan per hospitalist and other consultants. Thank you Dr. Bhatia, for allowing me to participate in this patient's care. Further recommendations will depend on the patient's clinical course. Please do not hesitate to contact me if you have any questions or concerns. This medical document was created using an electronic medical record system with [employer] computerized dictation system. Although these documentations are being carefully reviewed, there may still be some phonetic and typographical changes. The errors are purely typographical, due to imperfection on the software program, and do not reflect any compromise in the patient's medical care. Dietary Evaluation Review Comments: Continue current plan of care Expected Outcomes/Goals: Pt will meet >75% estimated needs Fu 3-5 days Plan discussed with: Patient, Other (KATHE Stevens) ABIMBOLA PAYNE MD Jul 23, 2024 18:10
--- NOTE | 2024-07-23 22:21 | DVHPN2 ---
Progress Note - Dictate Date Seen: Jul 23, 2024 Medical Necessity Reason Pt with a Central, PICC or Fol: Yes The following are medically ne: Central Line, South Catheter Reason for south catheter: Strict I&O Subjective She is awake and alert OOB to chair No GI symptoms Tolerating diet vital signs Vital Sign Date Time Temp Pulse Resp B/P (MAP) Pulse Ox O2 Delivery O2 Flow Rate FiO2 07/23/24 21:00 98.1 91 18 139/78 (98) 96 98.1 07/23/24 19:04 Room Air 0.0 07/23/24 19:04 21 Total Intake and Output 07/22/24 07/22/24 07/23/24 14:59 22:59 06:59 Intake Total 118 ml 290 ml 300 ml Output Total 850 ml 850 ml Balance 118 ml -560 ml -550 ml medications Current Medications Medications Dose Ordered Sig/Ginger Route Start Time Stop Time Status Last Admin Dose Admin Atorvastatin Calcium 40 mg HS PO 07/06/24 22:00 07/22/24 21:18 40 MG Gabapentin 400 mg BID PO 07/06/24 22:00 Hold Levothyroxine Sodium 75 mcg QAM@0600 PO 07/07/24 06:00 07/23/24 05:03 75 MCG Montelukast Sodium 10 mg HS PO 07/06/24 22:00 07/22/24 21:18 10 MG Ondansetron HCl 4 mg Q4HP PRN IV 07/06/24 19:00 07/21/24 12:42 4 MG Acetaminophen 650 mg Q6HP PRN PO 07/06/24 19:00 07/22/24 17:54 650 MG Pantoprazole Sodium 40 mg DAILY IV 07/09/24 10:00 07/23/24 09:21 40 MG Docusate Sodium 100 mg BIDPRN PRN PO 07/08/24 12:45 07/09/24 10:25 100 MG Hydralazine HCl 10 mg Q6HP PRN IV 07/09/24 18:00 07/14/24 06:52 10 MG Carbamazepine 200 mg BID PO 07/09/24 22:00 07/23/24 09:23 200 MG Enoxaparin Sodium 40 mg DAILY SC 07/13/24 10:00 UNV Enoxaparin Sodium 30 mg DAILY SC 07/13/24 10:00 07/23/24 09:22 30 MG Nystatin 5 ml QID MT 07/14/24 12:00 07/23/24 18:06 5 ML Albuterol 2.5 mg Q6HR NEB 07/15/24 12:00 07/23/24 19:06 2.5 MG Ipratropium [place] 0.5 mg Q6HR NEB 07/15/24 12:00 07/23/24 19:06 0.5 MG Epoetin Julito-epbx 4,000 unit TUTHSA@2100 [place] 07/16/24 21:00 07/21/24 21:17 4,000 UNIT Amlodipine Besylate 10 mg DAILY PO 07/18/24 10:00 07/23/24 09:23 10 MG Loperamide HCl 2 mg Q6HPRN PRN PO 07/21/24 12:15 07/23/24 12:44 2 MG objective GEN: Awake alert HEENT: NC/AT; MMM. CV: RRR, no m/r/g. LUNGS: Clear ABD: no distention, soft EXT: skin Warm, well perfused. no rashes. No clubbing, cyanosis, or edema. laboratory and microbiology Laboratory Tests 07/20/24 05:11 Test 07/20/24 05:11 Range/Units Serum Glucose 91 74-106 mg/dL Problems(with codes): (1) Multifocal pneumonia (2) N&V (nausea and vomiting) (3) Cholelithiasis (4) Constipation (5) Abdominal pain (6) Osteoarthritis (7) Lumbar radiculopathy (8) Generalized weakness (9) BRITTNEE (acute kidney injury) Prognosis Plan plan Patient is stable from GI point of view at this time Discharge planning is in progress Patient to go to SNF for two weeks for PT and rehab Outpatient follow up with GI Services in a few weeks to discuss elective panendoscopy once medically stabilized and to monitor cholelithiasis Dietary Evaluation Review Comments: Continue current plan of care Expected Outcomes/Goals: Pt will meet >75% estimated needs Fu 3-5 days Plan discussed with: Patient ASHLEIGH VILLANUEVA MD Jul 23, 2024 22:21
--- NOTE | 2024-07-23 22:59 | DVHPN2 ---
Progress Note - Dictate Date Seen: Jul 23, 2024 Medical Necessity Reason Pt with a Central, PICC or Fol: Yes The following are medically ne: Central Line, South Catheter Reason for south catheter: Strict I&O Subjective Patient was seen and evaluated in follow up. Patient is complaining of generalized pain. Patient is OOB to chair. Patient tolerating current diet. Patient and family have agreed to SNF placement. Insurance auth pending for SNF placement. vital signs Vital Sign Date Time Temp Pulse Resp B/P (MAP) Pulse Ox O2 Delivery O2 Flow Rate FiO2 07/23/24 09:23 119/71 07/23/24 08:10 97.6 87 16 98 97.6 07/23/24 07:56 Room Air* 0 21 Total Intake and Output 07/22/24 07/22/24 07/23/24 15:00 23:00 07:00 Intake Total 118 ml 290 ml 300 ml Output Total 850 ml 850 ml Balance 118 ml -560 ml -550 ml medications Current Medications Medications Dose Ordered Sig/Ginger Route Start Time Stop Time Status Last Admin Dose Admin Atorvastatin Calcium 40 mg HS PO 07/06/24 22:00 07/22/24 21:18 40 MG Gabapentin 400 mg BID PO 07/06/24 22:00 Hold Levothyroxine Sodium 75 mcg QAM@0600 PO 07/07/24 06:00 07/23/24 05:03 75 MCG Montelukast Sodium 10 mg HS PO 07/06/24 22:00 07/22/24 21:18 10 MG Ondansetron HCl 4 mg Q4HP PRN IV 07/06/24 19:00 07/21/24 12:42 4 MG Acetaminophen 650 mg Q6HP PRN PO 07/06/24 19:00 07/22/24 17:54 650 MG Pantoprazole Sodium 40 mg DAILY IV 07/09/24 10:00 07/23/24 09:21 40 MG Docusate Sodium 100 mg BIDPRN PRN PO 07/08/24 12:45 07/09/24 10:25 100 MG Hydralazine HCl 10 mg Q6HP PRN IV 07/09/24 18:00 07/14/24 06:52 10 MG Carbamazepine 200 mg BID PO 07/09/24 22:00 07/23/24 09:23 200 MG Enoxaparin Sodium 40 mg DAILY SC 07/13/24 10:00 UNV Enoxaparin Sodium 30 mg DAILY [place] 07/13/24 10:00 07/23/24 09:22 30 MG Nystatin 5 ml QID [place] 07/14/24 12:00 07/23/24 05:03 5 ML Albuterol 2.5 mg Q6HR [facility] 07/15/24 12:00 07/23/24 07:12 2.5 MG Ipratropium [place] 0.5 mg Q6HR [facility] 07/15/24 12:00 07/23/24 07:12 0.5 MG Epoetin Julito-epbx 4,000 unit TUTHSA@2100 [place] 07/16/24 21:00 07/21/24 21:17 4,000 UNIT Amlodipine Besylate 10 mg DAILY PO 07/18/24 10:00 07/23/24 09:23 10 MG Loperamide HCl 2 mg Q6HPRN PRN PO 07/21/24 12:15 07/22/24 21:25 2 MG objective GENERAL: Awake, alert, oriented. LUNGS: Decreased breath sounds. CARDIOVASCULAR: Heart sounds are good. ABDOMEN: Soft. laboratory and microbiology Laboratory Tests 07/20/24 05:11 Test 07/20/24 05:11 Range/Units Serum Glucose 91 74-106 mg/dL Problem List Acute hypoxic respiratory failure due to aspiration pneumonia/aspiration pneumonitis. Aspiration pneumonia. Intractable vomiting. Shock, septic possible. Symptomatic cholelithiasis possible. Chronic kidney disease. Hypokalemia. Chronic anemia. History of left kidney mass status post nephrectomy 2021 [facility]. Hypertension. Diverticulosis. Fatty liver. Persisting constipation. Elevated troponin. Episode of SVT. Assessment/Plan Continued all current supportive medical care. Amlodipine. Lipitor. DVT and GI prophylactics. IV Hydralazine for SBP >170. Additional plan as per the hospital course. Dietary Evaluation Review Comments: Continue current plan of care Expected Outcomes/Goals: Pt will meet >75% estimated needs Fu 3-5 days Plan discussed with: Patient MARÍA MIGUEL MD Jul 23, 2024 11:52
[2024-07-24] VITALS (16 sets, daily range): BP systolic 116–147; BP diastolic 61–94; PULSE 79–104; RESP 16–19; TEMP 97.5–98; O2SAT 94–100
--- NOTE | 2024-07-24 11:56 | DVHPN2 ---
Progress Note - Dictate Date Seen: Jul 24, 2024 Medical Necessity Reason Pt with a Central, PICC or Fol: Yes The following are medically ne: Central Line, South Catheter Reason for south catheter: Strict I&O Subjective Patient was seen and evaluated in follow up. No overnight events. Malik is reting in bed. She has no current complaints. Per CM, auth for SNF takes 24-72 hours, therefore patient is pending SNF placement. vital signs Vital Sign Date Time Temp Pulse Resp B/P (MAP) Pulse Ox O2 Delivery O2 Flow Rate FiO2 07/24/24 09:07 137/74 07/24/24 08:00 97.9 83 18 96 97.9 07/24/24 06:43 Room Air* 0 21 Total Intake and Output 07/23/24 07/23/24 07/24/24 15:00 23:00 07:00 Intake Total 200 ml 1300 ml Output Total 750 ml 1500 ml Balance -550 ml -200 ml medications Current Medications Medications Dose Ordered Sig/Ginger Route Start Time Stop Time Status Last Admin Dose Admin Atorvastatin Calcium 40 mg HS PO 07/06/24 22:00 07/23/24 23:22 40 MG Gabapentin 400 mg BID PO 07/06/24 22:00 Hold Levothyroxine Sodium 75 mcg QAM@0600 PO 07/07/24 06:00 07/24/24 05:55 75 MCG Montelukast Sodium 10 mg HS PO 07/06/24 22:00 07/23/24 23:22 10 MG Ondansetron HCl 4 mg Q4HP PRN IV 07/06/24 19:00 07/21/24 12:42 4 MG Acetaminophen 650 mg Q6HP PRN PO 07/06/24 19:00 07/22/24 17:54 650 MG Pantoprazole Sodium 40 mg DAILY IV 07/09/24 10:00 07/24/24 08:54 40 MG Docusate Sodium 100 mg BIDPRN PRN PO 07/08/24 12:45 07/09/24 10:25 100 MG Hydralazine HCl 10 mg Q6HP PRN IV 07/09/24 18:00 07/14/24 06:52 10 MG Carbamazepine 200 mg BID PO 07/09/24 22:00 07/24/24 09:07 200 MG Enoxaparin Sodium 40 mg DAILY SC 07/13/24 10:00 UNV Enoxaparin Sodium 30 mg DAILY SC 07/13/24 10:00 07/24/24 08:55 30 MG Nystatin 5 ml QID MT 07/14/24 12:00 07/24/24 05:55 5 ML Albuterol 2.5 mg Q6HR [facility] 07/15/24 12:00 07/24/24 06:43 2.5 MG Ipratropium [place] 0.5 mg Q6HR [facility] 07/15/24 12:00 07/24/24 06:43 0.5 MG Epoetin Julito-epbx 4,000 unit TUTHSA@2100 [place] 07/16/24 21:00 07/23/24 23:25 4,000 UNIT Amlodipine Besylate 10 mg DAILY PO 07/18/24 10:00 07/24/24 09:07 10 MG Loperamide HCl 2 mg Q6HPRN PRN PO 07/21/24 12:15 07/23/24 12:44 2 MG objective GENERAL: Awake, alert, oriented. LUNGS: Decreased breath sounds. CARDIOVASCULAR: Heart sounds are good. ABDOMEN: Soft. laboratory and microbiology Laboratory Tests 07/20/24 05:11 Test 07/20/24 05:11 Range/Units Serum Glucose 91 74-106 mg/dL Problem List Acute hypoxic respiratory failure due to aspiration pneumonia/aspiration pneumonitis. Aspiration pneumonia. Intractable vomiting. Shock, septic possible. Symptomatic cholelithiasis possible. Chronic kidney disease. Hypokalemia. Chronic anemia. History of left kidney mass status post nephrectomy 2021 [facility]. Hypertension. Diverticulosis. Fatty liver. Persisting constipation. Elevated troponin. Episode of SVT. Assessment/Plan Continued all current supportive medical care. Amlodipine. Lipitor. DVT and GI prophylactics. IV Hydralazine for SBP >170. Additional plan as per the hospital course. Dietary Evaluation Review Comments: Continue current plan of care Expected Outcomes/Goals: Pt will meet >75% estimated needs Fu 3-5 days Plan discussed with: Patient MARÍA MIGUEL MD Jul 24, 2024 11:30
--- NOTE | 2024-07-24 14:45 | DVHPN2 ---
Subjective PATIENT REPORTS HAVING TROUBLE HOLDING HER BOWELS. Reviewed: Care Plan, H&P, Labs, Medications, Previous Orders, Radiology Changes from previous H/P or p: No Changes General: Per HPI Objective Vitals Vital Signs Date Time Temp Pulse Resp B/P (MAP) Pulse Ox O2 Delivery O2 Flow Rate FiO2 07/24/24 12:53 86 18 100 07/24/24 12:40 Room Air 0.0 07/24/24 12:40 21 07/24/24 12:00 97.9 143/94 (110) 97.9 Intake/Output Intake and Output 07/24/24 07:00 Intake Total 1500 ml Output Total 2250 ml Balance -750 ml Intake Oral 1500 ml Output Urine Total 2250 ml # Bowel Movements 2 General Appearance: Alert, Oriented X3, Cooperative, mild distress HEENT: Atraumatic, PERRLA Lungs: Clear to auscultation, Normal air movement Cardiovascular: Normal S1, Normal S2 Abdomen: Normal bowel sounds, Soft, No tenderness, No hepatospenomegaly Genitourinary: No Apparent Abnormalities (Gastelum catheter) Neuro: Cranial nerves 3-12 NL Skin: Dry, Intact Psych/Mental Status: Other (Unable to assess) Medications Current Medications Medications Dose Ordered Sig/Ginger Route Start Time Stop Time Status Last Admin Dose Admin Atorvastatin Calcium 40 mg HS PO 07/06/24 22:00 07/23/24 23:22 40 MG Gabapentin 400 mg BID PO 07/06/24 22:00 Hold Levothyroxine Sodium 75 mcg QAM@0600 PO 07/07/24 06:00 07/24/24 05:55 75 MCG Montelukast Sodium 10 mg HS PO 07/06/24 22:00 07/23/24 23:22 10 MG Ondansetron HCl 4 mg Q4HP PRN IV 07/06/24 19:00 07/21/24 12:42 4 MG Acetaminophen 650 mg Q6HP PRN PO 07/06/24 19:00 07/22/24 17:54 650 MG Pantoprazole Sodium 40 mg DAILY IV 07/09/24 10:00 07/24/24 08:54 40 MG Docusate Sodium 100 mg BIDPRN PRN PO 07/08/24 12:45 07/09/24 10:25 100 MG Hydralazine HCl 10 mg Q6HP PRN IV 07/09/24 18:00 4/1/25 06:52 10 MG Carbamazepine 200 mg BID PO 07/09/24 22:00 07/24/24 09:07 200 MG Enoxaparin Sodium 40 mg DAILY SC 07/13/24 10:00 UNV Nystatin 5 ml QID MT 07/14/24 12:00 07/24/24 12:03 5 ML Albuterol 2.5 mg Q6HR NEB 07/15/24 12:00 07/24/24 12:40 2.5 MG Ipratropium [place] 0.5 mg Q6HR NEB 07/15/24 12:00 07/24/24 12:40 0.5 MG Epoetin Julito-epbx 4,000 unit TUTHSA@2100 SC 07/16/24 21:00 07/23/24 23:25 4,000 UNIT Amlodipine Besylate 10 mg DAILY PO 07/18/24 10:00 07/24/24 09:07 10 MG Loperamide HCl 2 mg Q6HPRN PRN PO 07/21/24 12:15 07/23/24 12:44 2 MG Laboratory Results Laboratory Tests 07/20/24 05:11 Urinalysis Test 07/06/24 19:30 Urine Color Colorless (Yellow) Urine Clarity Clear (Clear) Urine pH 5.0 (5.0-9.0) Urine Specific [place] 1.006 (1.001-1.035) Urine Protein Negative (Negative) Urine Ketones Negative (Negative) Urine Blood Negative /uL (Negative) Urine Nitrite Negative (Negative) Urine Bilirubin Negative (Negative) Urine Urobilinogen Normal mg/dL (Negative) Urine Leukocyte Esterase Negative /uL (Negative) Urine RBC <1 /hpf (0 - 4) Urine Microscopic WBC 2 /HPF (0-5) Urine Squamous Epithelial Cells Few /hpf (<5) Urine Bacteria None seen /hpf (None Seen) Urine Glucose Normal mg/dL (Normal) Microbiology Microbiology Date/Time Source Procedure Growth Status 07/11/24 12:00 Bronchial Washings Gram Stain - Final Complete 07/11/24 12:00 Respiratory Culture - Final Presumptive Zuleyka albicans Complete 07/09/24 15:25 Trachea Gram Stain - Final Complete 07/09/24 15:25 Trachea Respiratory Culture - Final Complete Labs and/or images reviewed: Labs reviewed by me, Image(s) reviewed by me Assessment/Plan Assessment/Plan Impression: -abdominal pain, questionably secondary to cholelithiasis versus constipation -constipation -cholelithiasis -obesity -acute respiratory failure with mechanical ventilation -multifocal pneumonia, probable aspiration etiology -acute kidney injury, vasomotor nephropathy, underlying CKD stage 4 -hyperchloremic metabolic acidosis -septic shock -anemia of chronic disease Plan: Events: Patient reports that she was ambulating further. Pending transfer to halfway facility -add Florastor, one dose of Questran -social service consultation -physical therapy consultation -transfer to Medical/Surgical unit Total time spent with patient discussing and formulating plan of care: 35 minutes. This medical document was created using an electronic medical record system with [employer] dictation system. Although this document has been carefully reviewed, there may still be some phonetic and typographical errors. These areas are purely typographical due to imperfections of the software programs, and do not reflect any compromise in the patient's medical care. Plan discussed with: Patient, Other (RN) Date of Service: Jul 24, 2024 Billing Provider: DIANE FRANKLIN NP Common Visit Codes: [id number] INP/OBS CARE(HIGH) DIANE FRANKLIN NP Jul 24, 2024 14:45
[2024-07-24] MEDS: CHOLESTYRAMINE 4 GM POWDER PO ONE (17:06)
[2024-07-24] MEDS: ALBUTEROL SULF 2.5 MG/0.5ML(0.5%) NEB SOLN NEB SCH (18:17)
[2024-07-24] MEDS: IPRATROPIUM BROM 0.5 MG/2.5ML INH SOL NEB SCH (18:17)
--- NOTE | 2024-07-24 21:00 | DVHPN2 ---
Progress Note - Dictate Date Seen: Jul 24, 2024 Medical Necessity Reason Pt with a Central, PICC or Fol: Yes The following are medically ne: Central Line, South Catheter Reason for south catheter: Strict I&O Subjective She is awake and alert OOB to chair Tolerating diet Two bowel movements recorded today vital signs Vital Sign Date Time Temp Pulse Resp B/P (MAP) Pulse Ox O2 Delivery O2 Flow Rate FiO2 07/24/24 18:27 102 16 99 07/24/24 18:17 Room Air* 0 21 07/24/24 16:00 97.8 116/61 (79) 97.8 Total Intake and Output 07/23/24 07/23/24 07/24/24 15:00 23:00 07:00 Intake Total 200 ml 1300 ml Output Total 750 ml 1500 ml Balance -550 ml -200 ml medications Current Medications Medications Dose Ordered Sig/Ginger Route Start Time Stop Time Status Last Admin Dose Admin Atorvastatin Calcium 40 mg HS PO 07/06/24 22:00 07/23/24 23:22 40 MG Gabapentin 400 mg BID PO 07/06/24 22:00 Hold Levothyroxine Sodium 75 mcg QAM@0600 PO 07/07/24 06:00 07/24/24 05:55 75 MCG Montelukast Sodium 10 mg HS PO 07/06/24 22:00 07/23/24 23:22 10 MG Ondansetron HCl 4 mg Q4HP PRN IV 07/06/24 19:00 07/24/24 17:33 4 MG Acetaminophen 650 mg Q6HP PRN PO 07/06/24 19:00 07/22/24 17:54 650 MG Pantoprazole Sodium 40 mg DAILY IV 07/09/24 10:00 07/24/24 08:54 40 MG Docusate Sodium 100 mg BIDPRN PRN PO 07/08/24 12:45 07/09/24 10:25 100 MG Hydralazine HCl 10 mg Q6HP PRN IV 07/09/24 18:00 07/14/24 06:52 10 MG Carbamazepine 200 mg BID PO 07/09/24 22:00 07/24/24 09:07 200 MG Enoxaparin Sodium 40 mg DAILY SC 07/13/24 10:00 UNV Nystatin 5 ml QID MT 07/14/24 12:00 07/24/24 17:09 5 ML Epoetin Julito-epbx 4,000 unit [place]@2100 [place] 07/16/24 21:00 07/23/24 23:25 4,000 UNIT Amlodipine Besylate 10 mg DAILY PO 07/18/24 10:00 07/24/24 09:07 10 MG Loperamide HCl 2 mg Q6HPRN PRN PO 07/21/24 12:15 07/23/24 12:44 2 MG Albuterol 2.5 mg Q12H NEB 07/24/24 22:00 07/24/24 18:17 2.5 MG Ipratropium [place] 0.5 mg Q12HR NEB 07/24/24 22:00 07/24/24 18:17 0.5 MG Saccharomyces Boulardii 250 mg DAILY PO 07/25/24 10:00 objective GEN: Awake alert HEENT: NC/AT; MMM. CV: RRR, no m/r/g. LUNGS: Clear ABD: no distention, soft EXT: skin Warm, well perfused. no rashes. No clubbing, cyanosis, or edema. laboratory and microbiology Laboratory Tests 07/20/24 05:11 Test 07/20/24 05:11 Range/Units Serum Glucose 91 74-106 mg/dL Problems(with codes): (1) Generalized weakness (2) Multifocal pneumonia (3) N&V (nausea and vomiting) (4) Cholelithiasis (5) Constipation Prognosis Plan plan Patient is stable from GI point of view at this time Discharge planning is in progress Patient to go to SNF for two weeks for PT and rehab Outpatient follow up with GI Services in a few weeks to discuss elective panendoscopy once medically stabilized and to monitor cholelithiasis Dietary Evaluation Review Comments: Continue current plan of care Expected Outcomes/Goals: Pt will meet >75% estimated needs Fu 3-5 days Plan discussed with: Patient ASHLEIGH VILLANUEVA MD Jul 24, 2024 21:00
--- NOTE | 2024-07-24 22:57 | DVHPN2 ---
Progress Note - Dictate Date Seen: Jul 24, 2024 Medical Necessity Reason Pt with a Central, PICC or Fol: Yes The following are medically ne: Central Line, South Catheter Reason for south catheter: Strict I&O Subjective Patient seen and examined at bedside. Breathing comfortably on room air. Overnight events reviewed. vital signs Vital Sign Date Time Temp Pulse Resp B/P (MAP) Pulse Ox O2 Delivery O2 Flow Rate FiO2 07/24/24 21:00 97.9 98 19 140/80 (100) 98 97.9 07/24/24 18:17 Room Air* 0 21 Total Intake and Output 07/23/24 07/23/24 07/24/24 15:00 23:00 07:00 Intake Total 200 ml 1300 ml Output Total 750 ml 1500 ml Balance -550 ml -200 ml medications Current Medications Medications Dose Ordered Sig/Ginger Route Start Time Stop Time Status Last Admin Dose Admin Atorvastatin Calcium 40 mg HS PO 07/06/24 22:00 07/23/24 23:22 40 MG Gabapentin 400 mg BID PO 07/06/24 22:00 Hold Levothyroxine Sodium 75 mcg QAM@0600 PO 07/07/24 06:00 07/24/24 05:55 75 MCG Montelukast Sodium 10 mg HS PO 07/06/24 22:00 07/23/24 23:22 10 MG Ondansetron HCl 4 mg Q4HP PRN IV 07/06/24 19:00 07/24/24 17:33 4 MG Acetaminophen 650 mg Q6HP PRN PO 07/06/24 19:00 07/22/24 17:54 650 MG Pantoprazole Sodium 40 mg DAILY IV 07/09/24 10:00 07/24/24 08:54 40 MG Docusate Sodium 100 mg BIDPRN PRN PO 07/08/24 12:45 07/09/24 10:25 100 MG Hydralazine HCl 10 mg Q6HP PRN IV 07/09/24 18:00 07/14/24 06:52 10 MG Carbamazepine 200 mg BID PO 07/09/24 22:00 07/24/24 09:07 200 MG Enoxaparin Sodium 40 mg DAILY SC 07/13/24 10:00 UNV Nystatin 5 ml QID MT 07/14/24 12:00 07/24/24 17:09 5 ML Epoetin Julito-epbx 4,000 unit TUTHSA@2100 [place] 07/16/24 21:00 07/23/24 23:25 4,000 UNIT Amlodipine Besylate 10 mg DAILY PO 07/18/24 10:00 07/24/24 09:07 10 MG Loperamide HCl 2 mg Q6HPRN PRN PO 07/21/24 12:15 07/23/24 12:44 2 MG Albuterol 2.5 mg Q12H NEB 07/24/24 22:00 07/24/24 18:17 2.5 MG Ipratropium [place] 0.5 mg Q12HR NEB 07/24/24 22:00 07/24/24 18:17 0.5 MG Saccharomyces Boulardii 250 mg DAILY PO 07/25/24 10:00 objective Gen.: Patient lying in bed in no apparent distress. On room air. Head: Normocephalic, atraumatic. Eyes: EOMI/PERRLA. Ears: Normal hearing. Normal anatomy. Neck/trachea: Trachea midline, supple. Nose: Normal external anatomy. Mouth: Moist mucous membranes. Chest: Decreased air entry bilaterally. No wheezing or rhonchi. Cardiovascular: Positive S1, positive S2. Regular rate and rhythm. Abdomen: Positive bowel sounds in all 4 quadrants. Soft, non-tender, non- distended. : Deferred. Rectal: Deferred. Skin: Warm, dry. Intact. Extremities: 2+ radial pulses bilaterally. No lower extremity edema. Neuro: Awake, alert, oriented x3. No gross motor or sensory deficits. Cranial nerves II through XII intact. Gait not assessed. laboratory and microbiology Laboratory Tests 07/20/24 05:11 Test 07/20/24 05:11 Range/Units Serum Glucose 91 74-106 mg/dL Assessment/Plan Impression: Acute hypoxic respiratory failure Aspiration pneumonia and aspiration pneumonitis Shock Chronic kidney disease Hypokalemia Chronic anemia Elevated troponin. Constipation Events: Remains on room air. Supplemental oxygen PRN No distress. Patient is stable for downgrade from the pulmonary standpoint. Continue bronchodilators Nystatin for thrush. Incentive spirometry Antiepileptic medications Head of bed elevation Aspiration precautions Monitor hemoglobin PT/OT GI prophylaxis - Protonix. DVT prophylaxis - Lovenox. Disposition per hospitalist. S/p therapeutic bronchoscopy on 07/14/24, cleared secretions Patient tolerated the procedure well. Please see separate procedure note for details. S/p bronchoscopy with RML BAL on 07/11/24 - see separate procedure note for details Labs and imaging reviewed. Rest of plan as noted below Plan: S/p extubation on 07/16/24 Supplemental oxygen PRN Titrate to keep O2 sats above 92%. IS Antiepileptic medications Pressors if necessary for hemodynamic support Titrate to keep mean arterial pressure greater than 65 mmHg. Monitor renal function Monitor electrolytes. Supplement as necessary. Monitor ins and outs. Accu-Cheks, ISS PRN. GI prophylaxis - Protonix. DVT prophylaxis - Lovenox. Prognosis: Guarded given patient's multiple co-morbidities. Rest of plan per hospitalist and other consultants. Thank you Dr. Bhatia, for allowing me to participate in this patient's care. Further recommendations will depend on the patient's clinical course. Please do not hesitate to contact me if you have any questions or concerns. This medical document was created using an electronic medical record system with [employer] computerized dictation system. Although these documentations are being carefully reviewed, there may still be some phonetic and typographical changes. The errors are purely typographical, due to imperfection on the software program, and do not reflect any compromise in the patient's medical care. Dietary Evaluation Review Comments: Continue current plan of care Expected Outcomes/Goals: Pt will meet >75% estimated needs Fu 3-5 days Plan discussed with: Patient, Other (RN) ABIMBOLA PAYNE MD Jul 24, 2024 22:57
[2024-07-25] VITALS (11 sets, daily range): BP systolic 127–146; BP diastolic 70–82; PULSE 81–97; RESP 16–19; TEMP 97.3–97.9; O2SAT 94–100
[2024-07-25] MEDS: FLORASTOR (S. BOULARDII) 250 MG CAP PO SCH (10:00)
--- NOTE | 2024-07-25 14:04 | DVHPN2 ---
Progress Note - Dictate Date Seen: Jul 25, 2024 Medical Necessity Reason Pt with a Central, PICC or Fol: Yes The following are medically ne: Central Line, South Catheter Reason for south catheter: Strict I&O vital signs Vital Sign Date Time Temp Pulse Resp B/P (MAP) Pulse Ox O2 Delivery O2 Flow Rate FiO2 07/25/24 10:31 132/79 07/25/24 09:00 97.9 90 18 97 97.9 07/25/24 08:00 Room Air* 0 21 Total Intake and Output 07/24/24 07/24/24 07/25/24 14:59 22:59 06:59 Intake Total 445 ml 1000 ml Output Total 350 ml 1000 ml Balance 95 ml 0 ml medications Current Medications Medications Dose Ordered Sig/Ginger Route Start Time Stop Time Status Last Admin Dose Admin Atorvastatin Calcium 40 mg HS PO 07/06/24 22:00 07/24/24 23:31 40 MG Gabapentin 400 mg BID PO 07/06/24 22:00 Hold Levothyroxine Sodium 75 mcg QAM@0600 PO 07/07/24 06:00 07/25/24 06:15 75 MCG Montelukast Sodium 10 mg HS PO 07/06/24 22:00 07/24/24 23:31 10 MG Ondansetron HCl 4 mg Q4HP PRN IV 07/06/24 19:00 07/24/24 17:33 4 MG Acetaminophen 650 mg Q6HP PRN PO 07/06/24 19:00 07/22/24 17:54 650 MG Pantoprazole Sodium 40 mg DAILY IV 07/09/24 10:00 07/25/24 10:31 40 MG Docusate Sodium 100 mg BIDPRN PRN PO 07/08/24 12:45 07/09/24 10:25 100 MG Hydralazine HCl 10 mg Q6HP PRN IV 07/09/24 18:00 07/14/24 06:52 10 MG Carbamazepine 200 mg BID PO 07/09/24 22:00 07/25/24 10:00 200 MG Enoxaparin Sodium 40 mg DAILY SC 07/13/24 10:00 UNV Nystatin 5 ml QID MT 07/14/24 12:00 07/25/24 12:21 5 ML Epoetin Julito-epbx 4,000 unit TUTHSA@2100 [place] 07/16/24 21:00 07/23/24 23:25 4,000 UNIT Amlodipine Besylate 10 mg DAILY PO 07/18/24 10:00 07/25/24 10:31 10 MG Loperamide HCl 2 mg Q6HPRN PRN PO 07/21/24 12:15 07/23/24 12:44 2 MG Albuterol 2.5 mg Q12H NEB 07/24/24 22:00 07/25/24 06:55 2.5 MG Ipratropium [place] 0.5 mg Q12HR NEB 07/24/24 22:00 07/25/24 06:55 0.5 MG Saccharomyces Boulardii 250 mg DAILY PO 07/25/24 10:00 07/25/24 10:00 250 MG laboratory and microbiology Laboratory Tests 07/20/24 05:11 Test 07/20/24 05:11 Range/Units Serum Glucose 91 74-106 mg/dL Assessment/Plan Impression Acute hypoxemic respiratory failure Elevated troponin Pneumonia Atelectasis Shock Patient seen and examined Events S/p extubation Low oxygen requirements On room air No acute events Labs and imaging reviewed Management Supplemental oxygen as needed Titrate to maintain sats 90% or above Incentive spirometry Continue antibiotics F/u cultures Bronchodilators Monitor renal function Monitor electrolytes Supplement as needed F/u cardiology Antiepileptics as ordered DVT prophylaxis Dietary Evaluation Review Comments: Continue current plan of care Expected Outcomes/Goals: Pt will meet >75% estimated needs Fu 3-5 days Plan discussed with: Patient AARON SMITH MD Jul 25, 2024 14:04
--- NOTE | 2024-07-25 14:07 | DVHPN2 ---
Subjective PATIENT REPORTS HAVING TROUBLE HOLDING HER BOWELS. Reviewed: Care Plan, H&P, Labs, Medications, Previous Orders, Radiology Changes from previous H/P or p: No Changes General: Per HPI Objective Vitals Vital Signs Date Time Temp Pulse Resp B/P (MAP) Pulse Ox O2 Delivery O2 Flow Rate FiO2 07/25/24 10:31 132/79 07/25/24 09:00 97.9 90 18 97 97.9 07/25/24 08:00 Room Air* 0 21 Intake/Output Intake and Output 07/25/24 06:59 Intake Total 1445 ml Output Total 1350 ml Balance 95 ml Intake Oral 1445 ml Output Urine Total 1350 ml # Bowel Movements 1 General Appearance: Alert, Oriented X3, Cooperative, mild distress HEENT: Atraumatic, PERRLA Lungs: Clear to auscultation, Normal air movement Cardiovascular: Normal S1, Normal S2 Abdomen: Normal bowel sounds, Soft, No tenderness, No hepatospenomegaly Genitourinary: No Apparent Abnormalities (Gastelum catheter) Neuro: Cranial nerves 3-12 NL Skin: Dry, Intact Psych/Mental Status: Other (Unable to assess) Medications Current Medications Medications Dose Ordered Sig/[place] Route Start Time Stop Time Status Last Admin Dose Admin Atorvastatin Calcium 40 mg HS PO 07/06/24 22:00 07/24/24 23:31 40 MG Gabapentin 400 mg BID PO 07/06/24 22:00 Hold Levothyroxine Sodium 75 mcg QAM@0600 PO 07/07/24 06:00 07/25/24 06:15 75 MCG Montelukast Sodium 10 mg HS PO 07/06/24 22:00 07/24/24 23:31 10 MG Ondansetron HCl 4 mg Q4HP PRN IV 07/06/24 19:00 07/24/24 17:33 4 MG Acetaminophen 650 mg Q6HP PRN PO 07/06/24 19:00 07/22/24 17:54 650 MG Pantoprazole Sodium 40 mg DAILY IV 07/09/24 10:00 07/25/24 10:31 40 MG Docusate Sodium 100 mg BIDPRN PRN PO 07/08/24 12:45 07/09/24 10:25 100 MG Hydralazine HCl 10 mg Q6HP PRN IV 07/09/24 18:00 07/14/24 06:52 10 MG Carbamazepine 200 mg BID PO 07/09/24 22:00 07/25/24 10:00 200 MG Enoxaparin Sodium 40 mg DAILY SC 07/13/24 10:00 UNV Nystatin 5 ml QID MT 07/14/24 12:00 07/25/24 12:21 5 ML Epoetin Julito-epbx 4,000 unit TUTHSA@2100 [place] 07/16/24 21:00 07/23/24 23:25 4,000 UNIT Amlodipine Besylate 10 mg DAILY PO 07/18/24 10:00 07/25/24 10:31 10 MG Loperamide HCl 2 mg Q6HPRN PRN PO 07/21/24 12:15 07/23/24 12:44 2 MG Albuterol 2.5 mg Q12H NEB 07/24/24 22:00 07/25/24 06:55 2.5 MG Ipratropium [place] 0.5 mg Q12HR NEB 07/24/24 22:00 07/25/24 06:55 0.5 MG Saccharomyces Boulardii 250 mg DAILY PO 07/25/24 10:00 07/25/24 10:00 250 MG Laboratory Results Laboratory Tests 07/20/24 05:11 Urinalysis Test 07/06/24 19:30 Urine Color Colorless (Yellow) Urine Clarity Clear (Clear) Urine pH 5.0 (5.0-9.0) Urine Specific [place] 1.006 (1.001-1.035) Urine Protein Negative (Negative) Urine Ketones Negative (Negative) Urine Blood Negative /uL (Negative) Urine Nitrite Negative (Negative) Urine Bilirubin Negative (Negative) Urine Urobilinogen Normal mg/dL (Negative) Urine Leukocyte Esterase Negative /uL (Negative) Urine RBC <1 /hpf (0 - 4) Urine Microscopic WBC 2 /HPF (0-5) Urine Squamous Epithelial Cells Few /hpf (<5) Urine Bacteria None seen /hpf (None Seen) Urine Glucose Normal mg/dL (Normal) Microbiology Microbiology Date/Time Source Procedure Growth Status 07/11/24 12:00 Bronchial Washings Gram Stain - Final Complete 07/11/24 12:00 Respiratory Culture - Final Presumptive Zuleyka albicans Complete 07/09/24 15:25 Trachea Gram Stain - Final Complete 07/09/24 15:25 Trachea Respiratory Culture - Final Complete Labs and/or images reviewed: Labs reviewed by me, Image(s) reviewed by me Assessment/Plan Assessment/Plan Impression: -abdominal pain, questionably secondary to cholelithiasis versus constipation -constipation -cholelithiasis -obesity -acute respiratory failure with mechanical ventilation -multifocal pneumonia, probable aspiration etiology -acute kidney injury, vasomotor nephropathy, underlying CKD stage 4 -hyperchloremic metabolic acidosis -septic shock -anemia of chronic disease Plan: Events: Patient reports improvement with her bowel movements. Continue current treatment plan until transferred to snf facility -continue Florastor -social service consultation -physical therapy consultation -transfer to Medical/Surgical unit Total time spent with patient discussing and formulating plan of care: 35 minutes. This medical document was created using an electronic medical record system with [employer] dictation system. Although this document has been carefully reviewed, there may still be some phonetic and typographical errors. These areas are purely typographical due to imperfections of the software programs, and do not reflect any compromise in the patient's medical care. Plan discussed with: Patient, Other (RN) My Orders Orders - DIANE FRANKLIN NP Procedure Category Date Status Time Albuterol Medneb PHA 07/24/24 In Process (Ventolin Medneb) 22:00 Ipratropium Medneb PHA 07/24/24 In Process (Atrovent Medneb) 22:00 Florastor (S. PHA 07/25/24 In Process Boulardii) (Florastor) 10:00 Date of Service: Jul 25, 2024 Billing Provider: DIANE FRANKLIN NP Common Visit Codes: [id number] INP/OBS CARE(HIGH) DIANE FRANKLIN NP Jul 25, 2024 14:07
--- NOTE | 2024-07-25 17:01 | DVHPN2 ---
Progress Note - Dictate Date Seen: Jul 25, 2024 Medical Necessity Reason Pt with a Central, PICC or Fol: Yes The following are medically ne: Central Line, South Catheter Reason for south catheter: Strict I&O Subjective She is awake and alert OOB to chair Tolerating diet One bowel movement recorded today vital signs Vital Sign Date Time Temp Pulse Resp B/P (MAP) Pulse Ox O2 Delivery O2 Flow Rate FiO2 07/25/24 13:00 97.6 81 18 127/70 (89) 98 97.6 07/25/24 08:00 Room Air* 0 21 Total Intake and Output 07/24/24 07/24/24 07/25/24 15:00 23:00 07:00 Intake Total 445 ml 1000 ml Output Total 350 ml 1000 ml Balance 95 ml 0 ml medications Current Medications Medications Dose Ordered Sig/Ginger Route Start Time Stop Time Status Last Admin Dose Admin Atorvastatin Calcium 40 mg HS PO 07/06/24 22:00 07/24/24 23:31 40 MG Gabapentin 400 mg BID PO 07/06/24 22:00 Hold Levothyroxine Sodium 75 mcg QAM@0600 PO 07/07/24 06:00 07/25/24 06:15 75 MCG Montelukast Sodium 10 mg HS PO 07/06/24 22:00 07/24/24 23:31 10 MG Ondansetron HCl 4 mg Q4HP PRN IV 07/06/24 19:00 07/24/24 17:33 4 MG Acetaminophen 650 mg Q6HP PRN PO 07/06/24 19:00 07/22/24 17:54 650 MG Pantoprazole Sodium 40 mg DAILY IV 07/09/24 10:00 07/25/24 10:31 40 MG Docusate Sodium 100 mg BIDPRN PRN PO 07/08/24 12:45 07/09/24 10:25 100 MG Hydralazine HCl 10 mg Q6HP PRN IV 07/09/24 18:00 07/14/24 06:52 10 MG Carbamazepine 200 mg BID PO 07/09/24 22:00 07/25/24 10:00 200 MG Enoxaparin Sodium 40 mg DAILY SC 07/13/24 10:00 UNV Nystatin 5 ml QID MT 07/14/24 12:00 07/25/24 12:21 5 ML Epoetin Julito-epbx 4,000 unit TUTHSA@2100 [place] 07/16/24 21:00 07/23/24 23:25 4,000 UNIT Amlodipine Besylate 10 mg DAILY PO 07/18/24 10:00 07/25/24 10:31 10 MG Loperamide HCl 2 mg Q6HPRN PRN PO 07/21/24 12:15 07/23/24 12:44 2 MG Albuterol 2.5 mg Q12H NEB 07/24/24 22:00 07/25/24 06:55 2.5 MG Ipratropium [place] 0.5 mg Q12HR NEB 07/24/24 22:00 07/25/24 06:55 0.5 MG Saccharomyces Boulardii 250 mg DAILY PO 07/25/24 10:00 07/25/24 10:00 250 MG objective GEN: Awake alert HEENT: NC/AT; MMM. CV: RRR, no m/r/g. LUNGS: Clear ABD: no distention, soft EXT: skin Warm, well perfused. no rashes. No clubbing, cyanosis, or edema. laboratory and microbiology Laboratory Tests 07/20/24 05:11 Test 07/20/24 05:11 Range/Units Serum Glucose 91 74-106 mg/dL Problems(with codes): (1) Generalized weakness (2) Multifocal pneumonia (3) N&V (nausea and vomiting) (4) Cholelithiasis (5) Constipation (6) Abdominal pain Prognosis PLAN Patient is stable from GI point of view at this time Patient is on Florastor Discharge planning is in progress Patient to go to SNF for two weeks for PT and rehab Outpatient follow up with GI Services in a few weeks to discuss elective panendoscopy once medically stabilized and to monitor cholelithiasis Dietary Evaluation Review Comments: Continue current plan of care Expected Outcomes/Goals: Pt will meet >75% estimated needs Fu 3-5 days Plan discussed with: Patient ASHLEIGH VILLANUEVA MD Jul 25, 2024 17:01
--- NOTE | 2024-07-25 19:18 | DVHPN2 ---
Progress Note - Dictate Date Seen: Jul 25, 2024 Medical Necessity Reason Pt with a Central, PICC or Fol: Yes The following are medically ne: Central Line, South Catheter Reason for south catheter: Strict I&O Subjective Patient was seen and evaluated in follow up. Patient reports having troubles holding her bowels. Patient is getting out of bed to chair. She is awaiting for SNF auth from insurance. No cardiac symptoms. vital signs Vital Sign Date Time Temp Pulse Resp B/P (MAP) Pulse Ox O2 Delivery O2 Flow Rate FiO2 07/25/24 17:00 97.3 94 18 146/82 (103) 99 97.3 07/25/24 08:00 Room Air* 0 21 Total Intake and Output 07/24/24 07/24/24 07/25/24 15:00 23:00 07:00 Intake Total 445 ml 1000 ml Output Total 350 ml 1000 ml Balance 95 ml 0 ml medications Current Medications Medications Dose Ordered Sig/Ginger Route Start Time Stop Time Status Last Admin Dose Admin Atorvastatin Calcium 40 mg HS PO 07/06/24 22:00 07/24/24 23:31 40 MG Gabapentin 400 mg BID PO 07/06/24 22:00 Hold Levothyroxine Sodium 75 mcg QAM@0600 PO 07/07/24 06:00 07/25/24 06:15 75 MCG Montelukast Sodium 10 mg HS PO 07/06/24 22:00 07/24/24 23:31 10 MG Ondansetron HCl 4 mg Q4HP PRN IV 07/06/24 19:00 07/25/24 17:23 4 MG Acetaminophen 650 mg Q6HP PRN PO 07/06/24 19:00 07/22/24 17:54 650 MG Pantoprazole Sodium 40 mg DAILY IV 07/09/24 10:00 07/25/24 10:31 40 MG Docusate Sodium 100 mg BIDPRN PRN PO 07/08/24 12:45 07/09/24 10:25 100 MG Hydralazine HCl 10 mg Q6HP PRN IV 07/09/24 18:00 07/14/24 06:52 10 MG Carbamazepine 200 mg BID PO 07/09/24 22:00 07/25/24 10:00 200 MG Enoxaparin Sodium 40 mg DAILY SC 07/13/24 10:00 UNV Nystatin 5 ml QID MT 07/14/24 12:00 07/25/24 17:23 5 ML Epoetin Julito-epbx 4,000 unit TUTHSA@2100 [place] 07/16/24 21:00 07/23/24 23:25 4,000 UNIT Amlodipine Besylate 10 mg DAILY PO 07/18/24 10:00 07/25/24 10:31 10 MG Loperamide HCl 2 mg Q6HPRN PRN PO 07/21/24 12:15 07/23/24 12:44 2 MG Albuterol 2.5 mg Q12H NEB 07/24/24 22:00 07/25/24 06:55 2.5 MG Ipratropium [place] 0.5 mg Q12HR NEB 07/24/24 22:00 07/25/24 06:55 0.5 MG Saccharomyces Boulardii 250 mg DAILY PO 07/25/24 10:00 07/25/24 10:00 250 MG objective GENERAL: Awake, alert, oriented. LUNGS: Decreased breath sounds. CARDIOVASCULAR: Heart sounds are good. ABDOMEN: Soft. laboratory and microbiology Laboratory Tests 07/20/24 05:11 Test 07/20/24 05:11 Range/Units Serum Glucose 91 74-106 mg/dL Problem List Acute hypoxic respiratory failure due to aspiration pneumonia/aspiration pneumonitis. Aspiration pneumonia. Intractable vomiting. Shock, septic possible. Symptomatic cholelithiasis possible. Chronic kidney disease. Hypokalemia. Chronic anemia. History of left kidney mass status post nephrectomy 2021 [facility]. Hypertension. Diverticulosis. Fatty liver. Persisting constipation. Elevated troponin. Episode of SVT. Assessment/Plan Continued all current supportive medical care. Amlodipine. Lipitor. DVT and GI prophylactics. IV Hydralazine for SBP >170. Additional plan as per the hospital course. Dietary Evaluation Review Comments: Continue current plan of care Expected Outcomes/Goals: Pt will meet >75% estimated needs Fu 3-5 days Plan discussed with: Patient MARÍA MIGUEL MD Jul 25, 2024 18:13
[2024-07-26] VITALS (8 sets, daily range): BP systolic 140–151; BP diastolic 82–92; PULSE 78–96; RESP 16–18; TEMP 97.3–98.2; O2SAT 94–100
--- NOTE | 2024-07-26 11:24 | DVHPN2 ---
Subjective PATIENT REPORTS HAVING TROUBLE HOLDING HER BOWELS. Reviewed: Care Plan, H&P, Labs, Medications, Previous Orders, Radiology Changes from previous H/P or p: No Changes General: Per HPI Objective Vitals Vital Signs Date Time Temp Pulse Resp B/P (MAP) Pulse Ox O2 Delivery O2 Flow Rate FiO2 07/26/24 09:31 140/82 07/26/24 09:28 79 16 100 07/26/24 09:22 Room Air* 0 21 07/26/24 09:00 97.4 97.4 Intake/Output Intake and Output 07/26/24 07:00 Intake Total 1300 ml Output Total 1600 ml Balance -300 ml Intake Oral 1300 ml Output Urine Total 1600 ml General Appearance: Alert, Oriented X3, Cooperative, mild distress HEENT: Atraumatic, PERRLA Lungs: Clear to auscultation, Normal air movement Cardiovascular: Normal S1, Normal S2 Abdomen: Normal bowel sounds, Soft, No tenderness, No hepatospenomegaly Genitourinary: No Apparent Abnormalities (Gastelum catheter) Neuro: Cranial nerves 3-12 NL Skin: Dry, Intact Psych/Mental Status: Other (Unable to assess) Medications Current Medications Medications Dose Ordered Sig/Ginger Route Start Time Stop Time Status Last Admin Dose Admin Atorvastatin Calcium 40 mg HS PO 07/06/24 22:00 07/25/24 21:28 40 MG Gabapentin 400 mg BID PO 07/06/24 22:00 Hold Levothyroxine Sodium 75 mcg QAM@0600 PO 07/07/24 06:00 07/26/24 05:11 75 MCG Montelukast Sodium 10 mg HS PO 07/06/24 22:00 07/25/24 21:28 10 MG Ondansetron HCl 4 mg Q4HP PRN IV 07/06/24 19:00 07/25/24 17:23 4 MG Acetaminophen 650 mg Q6HP PRN PO 07/06/24 19:00 07/26/24 09:30 650 MG Pantoprazole Sodium 40 mg DAILY IV 07/09/24 10:00 07/26/24 09:33 40 MG Docusate Sodium 100 mg BIDPRN PRN PO 07/08/24 12:45 07/09/24 10:25 100 MG Hydralazine HCl 10 mg Q6HP PRN IV 07/09/24 18:00 07/14/24 06:52 10 MG Carbamazepine 200 mg BID PO 07/09/24 22:00 07/26/24 09:33 200 MG Enoxaparin Sodium 40 mg DAILY SC 07/13/24 10:00 UNV Nystatin 5 ml QID MT 07/14/24 12:00 07/26/24 05:10 5 ML Epoetin Julito-epbx 4,000 unit TUTHSA@2100 [place] 07/16/24 21:00 07/25/24 21:27 4,000 UNIT Amlodipine Besylate 10 mg DAILY PO 07/18/24 10:00 07/26/24 09:31 10 MG Loperamide HCl 2 mg Q6HPRN PRN PO 07/21/24 12:15 07/23/24 12:44 2 MG Albuterol 2.5 mg Q12H NEB 07/24/24 22:00 07/26/24 09:22 2.5 MG Ipratropium [place] 0.5 mg Q12HR NEB 07/24/24 22:00 07/26/24 09:22 0.5 MG Saccharomyces Boulardii 250 mg DAILY PO 07/25/24 10:00 07/26/24 09:31 250 MG Laboratory Results Laboratory Tests 07/20/24 05:11 Urinalysis Test 07/06/24 19:30 Urine Color Colorless (Yellow) Urine Clarity Clear (Clear) Urine pH 5.0 (5.0-9.0) Urine Specific [place] 1.006 (1.001-1.035) Urine Protein Negative (Negative) Urine Ketones Negative (Negative) Urine Blood Negative /uL (Negative) Urine Nitrite Negative (Negative) Urine Bilirubin Negative (Negative) Urine Urobilinogen Normal mg/dL (Negative) Urine Leukocyte Esterase Negative /uL (Negative) Urine RBC <1 /hpf (0 - 4) Urine Microscopic WBC 2 /HPF (0-5) Urine Squamous Epithelial Cells Few /hpf (<5) Urine Bacteria None seen /hpf (None Seen) Urine Glucose Normal mg/dL (Normal) Microbiology Microbiology Date/Time Source Procedure Growth Status 07/11/24 12:00 Bronchial Washings Gram Stain - Final Complete 07/11/24 12:00 Respiratory Culture - Final Presumptive [place] albicans Complete 07/09/24 15:25 Trachea Gram Stain - Final Complete 07/09/24 15:25 Trachea Respiratory Culture - Final Complete Assessment/Plan Assessment/Plan Impression: -abdominal pain, questionably secondary to cholelithiasis versus constipation -constipation -cholelithiasis -obesity -acute respiratory failure with mechanical ventilation -multifocal pneumonia, probable aspiration etiology -acute kidney injury, vasomotor nephropathy, underlying CKD stage 4 -hyperchloremic metabolic acidosis -septic shock -anemia of chronic disease Plan: Events: Patient reports improvement with her bowel movements. Continue current treatment plan until transferred [facility] [place] [facility]. No change in a/P on 07/26/2024. -continue Florastor -social service consultation -physical therapy consultation -transfer to Medical/Surgical unit Total time spent with patient discussing and formulating plan of care: 35 minutes. This medical document was created using an electronic medical record system with [employer] dictation system. Although this document has been carefully reviewed, there may still be some phonetic and typographical errors. These areas are purely typographical due to imperfections of the software programs, and do not reflect any compromise in the patient's medical care. Plan discussed with: Patient, Other (Rn) Date of Service: Jul 26, 2024 Billing Provider: DIANE FRANKLIN NP Common Visit Codes: [id number] INP/OBS CARE(MOD) DIANE FRANKLIN NP Jul 26, 2024 11:24
[2024-07-26] MEDS ORDERED: HYDROcodone-ACET 7.5/325MG TAB PO PRN (11:45)
--- NOTE | 2024-07-26 13:36 | DVHPN2 ---
Progress Note - Dictate Date Seen: Jul 26, 2024 Medical Necessity Reason Pt with a Central, PICC or Fol: Yes The following are medically ne: Central Line, South Catheter Reason for south catheter: Strict I&O vital signs Vital Sign Date Time Temp Pulse Resp B/P (MAP) Pulse Ox O2 Delivery O2 Flow Rate FiO2 07/26/24 09:31 140/82 07/26/24 09:28 79 16 100 07/26/24 09:22 Room Air* 0 21 07/26/24 09:00 97.4 97.4 Total Intake and Output 07/25/24 07/25/24 07/26/24 14:59 22:59 06:59 Intake Total 1000 ml 300 ml Output Total 1100 ml 500 ml Balance -100 ml -200 ml medications Current Medications Medications Dose Ordered Sig/Ginger Route Start Time Stop Time Status Last Admin Dose Admin Atorvastatin Calcium 40 mg HS PO 07/06/24 22:00 07/25/24 21:28 40 MG Gabapentin 400 mg BID PO 07/06/24 22:00 Hold Levothyroxine Sodium 75 mcg QAM@0600 PO 07/07/24 06:00 07/26/24 05:11 75 MCG Montelukast Sodium 10 mg HS PO 07/06/24 22:00 07/25/24 21:28 10 MG Ondansetron HCl 4 mg Q4HP PRN IV 07/06/24 19:00 07/25/24 17:23 4 MG Acetaminophen 650 mg Q6HP PRN PO 07/06/24 19:00 07/26/24 09:30 650 MG Pantoprazole Sodium 40 mg DAILY IV 07/09/24 10:00 07/26/24 09:33 40 MG Docusate Sodium 100 mg BIDPRN PRN PO 07/08/24 12:45 07/09/24 10:25 100 MG Hydralazine HCl 10 mg Q6HP PRN IV 07/09/24 18:00 07/14/24 06:52 10 MG Carbamazepine 200 mg BID PO 07/09/24 22:00 07/26/24 09:33 200 MG Enoxaparin Sodium 40 mg DAILY SC 07/13/24 10:00 UNV Nystatin 5 ml QID MT 07/14/24 12:00 07/26/24 12:08 5 ML [facility] 07/16/24 21:00 07/25/24 21:27 4,000 UNIT Amlodipine Besylate 10 mg DAILY PO 07/18/24 10:00 07/26/24 09:31 10 MG Loperamide HCl 2 mg Q6HPRN PRN PO 07/21/24 12:15 07/23/24 12:44 2 MG Albuterol 2.5 mg Q12H NEB 07/24/24 22:00 07/26/24 09:22 2.5 MG Ipratropium [place] 0.5 mg Q12HR NEB 07/24/24 22:00 07/26/24 09:22 0.5 MG Saccharomyces Boulardii 250 mg DAILY PO 07/25/24 10:00 07/26/24 09:31 250 MG Acetaminophen/ Hydrocodone Bitart 1 tab Q6HP PRN PO 07/26/24 11:45 Pregabalin 75 mg Q12HR PO 07/26/24 22:00 laboratory and microbiology Laboratory Tests 07/20/24 05:11 Test 07/20/24 05:11 Range/Units Serum Glucose 91 74-106 mg/dL Assessment/Plan Impression Acute hypoxemic respiratory failure Elevated troponin Pneumonia Atelectasis Shock Patient seen and examined Events S/p extubation Low oxygen requirements On room air No acute events Labs and imaging reviewed Management Supplemental oxygen as needed Titrate to maintain sats 90% or above Incentive spirometry Continue antibiotics F/u cultures Bronchodilators Monitor renal function Monitor electrolytes Supplement as needed F/u cardiology Antiepileptics as ordered DVT prophylaxis Dietary Evaluation Review Comments: Continue current plan of care Expected Outcomes/Goals: Pt will meet >75% estimated needs Fu 3-5 days Plan discussed with: Other (rn) AARON SMITH MD Jul 26, 2024 13:36
[2024-07-26] MEDS ORDERED: PREGABALIN CAPSULE 75 MG CAP PO SCH (22:00)
--- NOTE | 2024-07-26 22:31 | DVHPN2 ---
Progress Note - Dictate Date Seen: Jul 26, 2024 Medical Necessity Reason Pt with a Central, PICC or Fol: Yes The following are medically ne: Central Line, South Catheter Reason for south catheter: Strict I&O Subjective Patient was seen and evaluated in follow up. Patient has no new complaints at this time. Patient denies any cardiac symptoms. Patient is cardiac stable for discharge. vital signs Vital Sign Date Time Temp Pulse Resp B/P (MAP) Pulse Ox O2 Delivery O2 Flow Rate FiO2 07/26/24 09:31 140/82 07/26/24 09:28 79 16 100 07/26/24 09:22 Room Air* 0 21 07/26/24 09:00 97.4 97.4 Total Intake and Output 07/25/24 07/25/24 07/26/24 15:00 23:00 07:00 Intake Total 1000 ml 300 ml Output Total 1100 ml 500 ml Balance -100 ml -200 ml medications Current Medications Medications Dose Ordered Sig/Ginger Route Start Time Stop Time Status Last Admin Dose Admin Atorvastatin Calcium 40 mg HS PO 07/06/24 22:00 07/25/24 21:28 40 MG Gabapentin 400 mg BID PO 07/06/24 22:00 Hold Levothyroxine Sodium 75 mcg QAM@0600 PO 07/07/24 06:00 07/26/24 05:11 75 MCG Montelukast Sodium 10 mg HS PO 07/06/24 22:00 07/25/24 21:28 10 MG Ondansetron HCl 4 mg Q4HP PRN IV 07/06/24 19:00 07/25/24 17:23 4 MG Acetaminophen 650 mg Q6HP PRN PO 07/06/24 19:00 07/26/24 09:30 650 MG Pantoprazole Sodium 40 mg DAILY IV 07/09/24 10:00 07/26/24 09:33 40 MG Docusate Sodium 100 mg BIDPRN PRN PO 07/08/24 12:45 07/09/24 10:25 100 MG Hydralazine HCl 10 mg Q6HP PRN IV 07/09/24 18:00 07/14/24 06:52 10 MG Carbamazepine 200 mg BID PO 07/09/24 22:00 07/26/24 09:33 200 MG Enoxaparin Sodium 40 mg DAILY SC 07/13/24 10:00 UNV Nystatin 5 ml QID MT 07/14/24 12:00 07/26/24 12:08 5 ML Epoetin Julito-epbx 4,000 unit TUTHSA@2100 [place] 07/16/24 21:00 07/25/24 21:27 4,000 UNIT Amlodipine Besylate 10 mg DAILY PO 07/18/24 10:00 07/26/24 09:31 10 MG Loperamide HCl 2 mg Q6HPRN PRN PO 07/21/24 12:15 07/23/24 12:44 2 MG Albuterol 2.5 mg Q12H NEB 07/24/24 22:00 07/26/24 09:22 2.5 MG Ipratropium [place] 0.5 mg Q12HR NEB 07/24/24 22:00 07/26/24 09:22 0.5 MG Saccharomyces Boulardii 250 mg DAILY PO 07/25/24 10:00 07/26/24 09:31 250 MG Acetaminophen/ Hydrocodone Bitart 1 tab Q6HP PRN PO 07/26/24 11:45 Pregabalin 75 mg Q12HR PO 07/26/24 22:00 objective GENERAL: Awake, alert, oriented. LUNGS: Decreased breath sounds. CARDIOVASCULAR: Heart sounds are good. ABDOMEN: Soft. laboratory and microbiology Laboratory Tests 07/20/24 05:11 Test 07/20/24 05:11 Range/Units Serum Glucose 91 74-106 mg/dL Problem List Acute hypoxic respiratory failure due to aspiration pneumonia/aspiration pneumonitis. Aspiration pneumonia. Intractable vomiting. Shock, septic possible. Symptomatic cholelithiasis possible. Chronic kidney disease. Hypokalemia. Chronic anemia. History of left kidney mass status post nephrectomy 2021 [facility]. Hypertension. Diverticulosis. Fatty liver. Persisting constipation. Elevated troponin. Episode of SVT. Assessment/Plan Continued all current supportive medical care. Amlodipine. Lipitor. DVT and GI prophylactics. IV Hydralazine for SBP >170. Additional plan as per the hospital course. Dietary Evaluation Review Comments: Continue current plan of care Expected Outcomes/Goals: Pt will meet >75% estimated needs Fu 3-5 days Plan discussed with: Patient MARÍA MIGUEL MD Jul 26, 2024 13:07
== END 2024-07-26 18:00 | DRG 444 ==
LOC: EDBD 13:47 → ER 13:47 → OVERFLOW 18:52 → WEST WING 19:00 → ICU WEST 07-09 19:33 → DOU IN ICU 07-18 16:52 → TELE-WESTW 07-20 15:38 → WEST WING 07-22 23:36
PROVIDERS: ADMIT Nurse Practitioner Acute Care; ATTEND Nurse Practitioner Acute Care
PROC: 0BH17EZ Insertion of Endotracheal Airway into Trachea, Via Natural or Artificial Opening (ICD-10-PCS; 2024-07-09)
PROC: 5A1955Z Respiratory Ventilation, Greater than 96 Consecutive Hours (ICD-10-PCS; 2024-07-09)
PROC: 0B9D8ZX Drainage of Right Middle Lung Lobe, Via Natural or Artificial Opening Endoscopic, Diagnostic (ICD-10-PCS; principal; 2024-07-11)
PROC: 0BC38ZZ Extirpation of Matter from Right Main Bronchus, Via Natural or Artificial Opening Endoscopic (ICD-10-PCS; 2024-07-11)
PROC: 0BC78ZZ Extirpation of Matter from Left Main Bronchus, Via Natural or Artificial Opening Endoscopic (ICD-10-PCS; 2024-07-14)
PROC: 0BC38ZZ Extirpation of Matter from Right Main Bronchus, Via Natural or Artificial Opening Endoscopic (ICD-10-PCS; 2024-07-14)
PROC: 05HC33Z Insertion of Infusion Device into Left Basilic Vein, Percutaneous Approach (ICD-10-PCS; 2024-07-20)
PROC: B54NZZA Ultrasonography of Left Upper Extremity Veins, Guidance (ICD-10-PCS; 2024-07-20)
DX: K80.20 Calculus of gallbladder without cholecystitis without obstruction (principal); A41.9 Sepsis, unspecified organism; J69.0 Pneumonitis due to inhalation of food and vomit; N17.0 Acute kidney failure with tubular necrosis; J96.01 Acute respiratory failure with hypoxia; R65.21 Severe sepsis with septic shock; G93.41 Metabolic encephalopathy; J18.9 Pneumonia, unspecified organism; N39.0 Urinary tract infection, site not specified; Z94.0 Kidney transplant status; N18.4 Chronic kidney disease, stage 4 (severe); I47.10 Supraventricular tachycardia, unspecified; G93.1 Anoxic brain damage, not elsewhere classified; E87.29 Other acidosis; I13.0 Hypertensive heart and chronic kidney disease with heart failure and stage 1 through stage 4 chronic kidney disease, or unspecified chronic kidney disease; K56.41 Fecal impaction; K57.30 Diverticulosis of large intestine without perforation or abscess without bleeding; E87.6 Hypokalemia; J45.909 Unspecified asthma, uncomplicated; E66.9 Obesity, unspecified; B37.9 Candidiasis, unspecified; J01.90 Acute sinusitis, unspecified; K42.9 Umbilical hernia without obstruction or gangrene; M06.9 Rheumatoid arthritis, unspecified; N28.1 Cyst of kidney, acquired; I50.9 Heart failure, unspecified; M54.9 Dorsalgia, unspecified; D63.8 Anemia in other chronic diseases classified elsewhere; E87.8 Other disorders of electrolyte and fluid balance, not elsewhere classified; K76.0 Fatty (change of) liver, not elsewhere classified; E78.5 Hyperlipidemia, unspecified; Z90.710 Acquired absence of both cervix and uterus; Z68.34 Body mass index [BMI] 34.0-34.9, adult; Z90.5 Acquired absence of kidney; Z79.891 Long term (current) use of opiate analgesic; Z79.899 Other long term (current) drug therapy; Z79.1 Long term (current) use of non-steroidal anti-inflammatories (NSAID)
CPT/HCPCS: 36415; 36600; 70450; 70551; 71045; 71250; 74176; 78226; 80048; 80053; 81001; 82270; 82306; 82607; 82728; 82805; 82962; 83540; 83550; 83735; 84100; 84443; 84478; 84484; 85007; 85025; 85027; 87070; 87077; 87186; 87205; 92610; 93005; 94002; 94003; 94640; 95819; 97110; 97116; 97163; 97530; G0378; J0131; J1756; J2248; J2405; J2470; J2543; J3480; J7060

== ENCOUNTER 2024-10-13 10:56 | Inpatient (IN) | payer OTHER ==
[~2024-10-13] VITALS: Ht 162.6 cm; Wt 85.3 kg
--- NOTE | 2024-10-13 11:39 | ED.PDOC ---
History of Present Illness HPI Comments 74 y/o F, with PMHx of HTN, HLD, DM, CHF and asthma presents to the ED for CC of tube replacement. Patient states, she is here to have her Dozier Catheter replaced. Patient reports, last time Dozier was replaced in early April 2024. Patient denies pain with urination, hematuria, or back pain. No other symptoms or modifying factors present at this time. Chief Complaint: Urinary Time Seen by MD: 11:30 Primary Care Provider: UNKNOWN Reviewed Notes: Nurses Notes, Medications, Allergies Allergies: Coded Allergies: NO KNOWN ALLERGIES (Unverified , 11/11/18) Home Meds Reported Medications Febuxostat (Febuxostat) 40 Mg Tab, 1 TAB PO DAILY for 30 Days, #30 07/07/24 Diclofenac Sodium (Diclofenac Sodium Ec) 50 Mg Tab, 1 TAB PO Q12HR for 30 Days, #60 07/07/24 Epoetin Julito (Epogen) 20,000 Unit/Ml Inj, 1 ML SC Q30D for 60 Days, #2 07/07/24 Gabapentin (Gabapentin) 400 Mg Cap, 1 CAP PO TID for 40 Days, #120 07/07/24 B-Complex W/ C & Folic Acid (Rebecca-Lilly Rx) Tab, 1 TAB PO DAILY for 30 Days, #30 03/12/24 Fluticasone Propionate (Nasal) (Fluticasone Propionate Na) 50 Mcg/Act Spr, 1 SPRAY EACHNOSTRI BID for 30 Days, #16 03/12/24 Oxycodone W/ Acetaminophen (Apap/Oxycodone) 1 Tab Tab, 1 TAB PO Q8HR for 30 Days, #90 03/12/24 Pregabalin (Lyrica) 75 Mg Cap, 1 CAP PO Q12HR for 30 Days, #60 03/12/24 Losartan Potassium (Losartan Potassium) 50 Mg Tab, 0.5 TAB PO DAILY for 100 Days, #50 03/12/24 Furosemide (Furosemide) 40 Mg Tab, 1 TAB PO QAM PRN for 30 Days, #30 03/12/24 Ferrous Sulfate (Ferosul) 325 Mg Tab, 1 TAB PO 3X/WEEK for 84 Days, #36 03/12/24 Clonazepam (Clonazepam) 0.5 Mg Tab, 1 TAB PO BIDPRN for 88 Days, #176 03/12/24 Carbamazepine (Carbamazepine) 200 Mg Tab, 1 TAB PO BID for 90 Days, #180 03/12/24 Oxycodone Hcl (OxyCONTIN ER Tablet) 10 Mg Tb, 1 TAB PO BID, #60 TAB 03/12/24 Omeprazole ([facility] Omeprazole Odt) 20 Mg Tab, 1 TAB PO BID 08/03/22 Montelukast Sodium (MONTELUKAST SODIUM) 10 Mg Tab, 1 TAB PO DAILY for 100 Days, #100 08/03/22 Atorvastatin Calcium (ATORVASTATIN CALCIUM) 40 Mg Tab, 1 TAB PO DAILY for 90 Days, #90 06/15/18 Amlodipine Besylate (Amlodipine Besylate) 10 Mg Tab, 1 TAB PO DAILY, #30 TAB 5 Refills 06/15/18 Levothyroxine Sodium (Levothyroxine Sodium) 50 Mcg Tab, 75 MCG PO QAM for 30 Da ys, #30 01/25/17 Venlafaxine Hydrochloride (Venlafaxine Hcl) 75 Mg Tab, 200 MG PO DAILY, TAB 01/25/17 Discontinued Scripts Methylprednisolone (Medrol Dosepak) 4 Mg Gerald, 4 MG PO UD, #21 TAB UAD Prov:DIANE FRANKLIN NP 03/17/24 Docusate Sodium (Colace) 100 Mg Cap, 1 CAP PO BID, #60 CAP 2 Refills Prov:JUAN DOUGLAS MD 08/09/22 Hydrocodone-Acetaminophen (Hydrocodone Bitartrate/AC 5-325 mg) 1 Tab Tab, 1 TAB PO Q6HP PRN, #30 TAB Prov:JUAN DOUGLAS MD 08/09/22 Ondansetron (Zofran) 4 Mg Tab, 4 MG PO Q4HP PRN, #30 TAB Prov:JUAN DOUGLAS MD 08/09/22 Information Source: Patient Mode of Arrival: Wheelchair Severity: Moderate Timing: Months Duration: Since onset Prehospital treatment: None Past Medical History PAST MEDICAL HISTORY: Asthma, CHF, DM, High Lipids, HTN Surgical History: Hysterectomy MINISTER ASSISTANT History: No Pertinent MINISTER ASSISTANT History Family History Family History: Unknown Social History Smoker: Non-Smoker Alcohol: Denies ETOH Use Drugs: Denies Drug Use Lives In: Home Constitutional: denies: chills, diaphoresis, fatigue, fever, malaise, sweats, weakness, others EENTM: denies: blurred vision, double vision, ear bleeding, ear discharge, ear drainage, ear pain, ear ringing, eye pain, eye redness, hearing loss, mouth pain, mouth swelling, nasal discharge, nose bleeding, nose congestion, nose pain, photophobia, tearing, throat pain, throat swelling, voice changes, others Respiratory: denies: cough, hemoptysis, orthopnea, SOB at rest, shortness of breath, SOB with excertion, stridor, wheezing, others Cardiovascular: denies: chest pain, dizzy spells, diaphoresis, Dyspnea on exertion, edema, irregular heart beat, left arm pain, lightheadedness, palpitations, PND, syncope, others Gastrointestinal: denies: abdomen distended, abdominal pain, blood streaked bowels, constipated, diarrhea, dysphagia, difficulty swallowing, hematemesis, melena, nausea, poor appetite, poor fluid intake, rectal bleeding, rectal pain, vomiting, others Genitourinary: denies: abnormal vagina bleeding, burning, dyspareunia, dysuria, flank pain, frequency, hematuria, incontinence, pain, , vagina discharge, urgency, others Neurological: denies: dizziness, fainting, headache, left sided numbness, left sided weakness, numbness, paresthesia, pre-existing deficit, right sided numbness, right sided weakness, seizure, speech problems, tingling, tremors, weakness, others Musculoskeletal: denies: back pain, gout, joint pain, joint swelling, muscle pain, muscle stiffness, neck pain, others Integumetry: denies: bruises, change in color, change in hair/nails, dryness, laceration, lesions, lumps, rash, wounds, others Allergic/Immunocompromised: denies: Difficulty Healing, Frequent Infections, Hives, Itching, others Hematologic/Lymphatic: denies: anemia, blood clots, easy bleeding, easy bruising, swollen glands, others Endocrine: denies: excessive hunger, excessive sweating, excessive thirst, excessive urination, flushing, intolerance to cold, intolerance to heat, unexplained weight gain, unexplained weight loss, others Psychiatric: denies: anxiety, bipolar disorder, depression, hopeless, panic disorder, schizophrenia, sleepless, suicidal, others All Other Systems: Reviewed and Negative Physical Exam General Appearance: Moderate Distress HEENT: Normal ENT Inspection, Pharynx Normal, TMs Normal Neck: Full Range of Motion, Non-Tender, Normal, Normal Inspection Respiratory: Chest Non-Tender, Lungs Clear, No Accessory Muscle Use, No Respiratory Distress, Normal Breath Sounds Cardiovascular: No Edema, No JVD, No Murmur, No Gallop, Normal Peripheral Pulses, Regular Rate/Rhythm Breast Exam: Deferred Gastrointestinal: No Organomegaly, Non Tender, No Pulsatile Mass, Normal Bowel Sounds, Soft Genitalia: Deferred Pelvic: Deferred Rectal: Deferred Extremities: No calf tenderness, Pedal edema Musculoskeletal : Apperance: Normal Neurologic: Alert, Motor Weakness, No Sensory Deficits Cerebellar Function: NOT DONE Reflexes: NOT DONE Skin: Pallor Peripheral Pulses: 3+ Radial (R), 3+ Radial (L) Lymphatic: No Adenopathy Was a procedure done? Was a procedure done?: No Differential Dx Considerations may include: DOZIER CATHETER REPLACEMENT X-Ray, Labs, Meds, VS Vital Signs Date Time Temp Pulse Resp B/P (MAP) Pulse Ox O2 Delivery O2 Flow Rate FiO2 10/13/24 14:37 79 20 96 Room Air* 0 21 10/13/24 14:00 101 18 115/81 (92) 97 10/13/24 13:31 88 16 96 Room Air 10/13/24 13:31 97.7 88 16 121/82 (95) 96 97.7 10/13/24 11:17 97.9 97 16 115/74 (88) 96 97.9 Lab Test 10/13/24 14:44 10/13/24 11:34 Range/Units Urine Color Colorless Yellow Urine Clarity Turbid H Clear Urine pH 5.0 5.0-9.0 Urine Specific [place] 1.012 1.001-1.035 Urine Protein Trace H Negative Urine Ketones Negative Negative Urine Blood 2+ H Negative /uL Urine Nitrite Negative Negative Urine Bilirubin Negative Negative Urine Urobilinogen Normal Negative mg/dL Urine Leukocyte Esterase 3+ Negative /uL Urine RBC 18 0 - 4 /hpf Urine Microscopic WBC 43 H 0-5 /HPF Urine Squamous Epithelial Cells Many <5 /hpf Urine Bacteria Few H None Seen /hpf Urine Glucose Normal Normal mg/dL White Blood Count 6.2 4.4-10.8 10^3/uL Red Blood Count 3.68 L 4.0-5.20 10^6/uL Hemoglobin 10.9 L 12.2-16.2 g/dL Hematocrit 31.9 L 36.0-46.0 % Mean Corpuscular Volume 86.6 80.0-100.0 fL Mean Corpuscular Hemoglobin 29.7 28.0-32.0 pg Mean Corpuscular Hemoglobin Concent 34.2 32.0-36.0 g/dL Red Cell Distribution Width 16.5 H 11.8-14.3 % Platelet Count 182 140-450 10^3/uL Mean Platelet Volume 6.9 6.9-10.8 fL Neutrophils (%) (Auto) 73.8 37.0-80.0 % Lymphocytes (%) (Auto) 18.2 10.0-50.0 % Monocytes (%) (Auto) 3.3 0.0-12.0 % Eosinophils (%) (Auto) 4.2 0.0-7.0 % Basophils (%) (Auto) 0.5 0.0-2.0 % Neutrophils # (Auto) 4.5 1.6-8.6 10 ^3/uL Lymphocytes # (Auto) 1.1 0.4-5.4 10 ^3/uL Monocytes # (Auto) 0.2 0-1.3 10 ^3/uL Eosinophils # (Auto) 0.3 0-0.8 10 ^3/uL Basophils # (Auto) 0 0-0.2 10 ^3/uL Nucleated Red Blood Cells 0.0 % Sodium Level 139 136-145 mmol/L Potassium Level 3.7 3.5-5.1 mmol/L Chloride Level 103 98-107 mmol/L Carbon Dioxide Level 22 20-31 mmol/L Anion Gap 14 5-15 Blood Urea Nitrogen 100 *H 9-23 mg/dL Creatinine 3.55 H 0.550-1.02 mg/dL Glomerular Filtration Rate Calc 13 >90 mL/min BUN/Creatinine Ratio 28.2 H 10.0-20.0 Serum Glucose 103 74-106 mg/dL Calcium Level 10.0 8.7-10.4 mg/dL Troponin I High Sensitivity 24 </=34 ng/L Current Medications Medications (Trade) Dose Ordered Sig/Ginger Route Start Time Stop Time Status Last Admin Ceftriaxone Sodium 50 ml @ 100 mls/hr ONCE ONCE IV 10/13/24 13:00 10/13/24 13:29 DC 10/13/24 14:52 Sodium Chloride 1,000 ml @ 1,000 mls/hr Q1H ONCE IV 10/13/24 13:00 10/13/24 13:59 DC 10/13/24 13:34 Sodium Chloride 1,000 ml @ 150 mls/hr Q6H40M ONCE IV 10/13/24 13:00 10/13/24 19:39 10/13/24 14:52 [place] [id number] Ph: [phone] DIAGNOSTIC IMAGING Diagnostic Imaging Report : [id number] Signed PATIENT: DONTRELL COTTON ACCT: [id number] UNIT: [id number] : 1950 LOC: ER ROOM / BED: / AGE / SEX: 74 / F ADM STATUS: REG ER SERVICE 1103 ORDERING PHYSICIAN: CHERELLE BROWN MD PROCEDURE(s): CXRP - CHEST PORTABLE REASON: sob ORDER NUMBER(s): [id number], ACCESSION NUMBER(s): [id number] CHEST RADIOGRAPH Indication: sob Technique: Single frontal view of the chest was obtained COMPARISON: XY CHEST PORTABLE on DOS: 07/20/24, XY CHEST PORTABLE on DOS: 07/19/24, XY CHEST PORTABLE on DOS: 07/18/24, XY CHEST PORTABLE on DOS: 07/17/24, XY CHEST PORTABLE on DOS: 07/16/24 FINDINGS: Lines and Tubes: None Lungs: Increased interstitial prominence Pleura: No effusion. No pneumothorax. Cardiomediastinal contours: Unremarkable Bones: Unremarkable IMPRESSION: Mild pulmonary vascular congestion or viral pneumonia. ATED BY: VASYL FISHER MD DICTATED DATE/TIME: 10/13/24 1148 SIGNED BY: VASYL FISHER MD SIGNED DATE/TIME: 10/13/24 1148 CC: Patient slow to answering questions. Vitals stable. She is in a wheelchair. Saturation pristine on room air. Reviewed her previous visit months ago. States that she has not been able to walk since she left this hospital months ago. Possible sepsis from urinary tract infection. Has a Dozier catheter in place. BUN creatinine elevated. Explained to the family. Continue to monitor. Time of 1ST Reevaluation: 12:00 Reevaluation 1ST: Unchanged Patient Education/Counseling: Diagnosis, Treatment Family Education/Counseling: No Family Present SEPSIS Sepsis Screen Date sepsis recognized/suspect: Oct 13, 2024 Time Sepsis recognized/suspect: 1107 Recent Procedure: No On Antibiotic Therapy: No Respiratory Rate >20: No Heart Rate >90: Yes Temp<36 C (96.8 F) or >38.3 C: No SBP <90 or MAP <65 mmHG: No New Acute Mental Status Change: No Is the patient on CPAP, BIPAP,: No Physician Orders Chest Portable (10/13/24 11:03) Urine Bacterial Culture (10/13/24 11:44) Sodium Chloride 0.9% (10/13/24 13:00) Insert Dozier Catheter QSHIFT (10/13/24 12:59) Vital Signs Date Time Temp Pulse Resp B/P (MAP) Pulse Ox O2 Delivery O2 Flow Rate FiO2 10/13/24 14:37 79 20 96 Room Air* 0 21 10/13/24 14:00 101 18 115/81 (92) 97 10/13/24 13:31 88 16 96 Room Air 10/13/24 13:31 97.7 88 16 121/82 (95) 96 97.7 10/13/24 11:17 97.9 97 16 115/74 (88) 96 97.9 Laboratory Tests Test 10/13/24 11:34 White Blood Count 6.2 10^3/uL (4.4-10.8) Medications Medications Dose Ordered Sig/Ginger Route Start Time Stop Time Status Last Admin Dose Admin Ceftriaxone Sodium 50 ml @ 100 mls/hr ONCE ONCE IV 10/13/24 13:00 10/13/24 13:29 DC 10/13/24 14:52 Sodium Chloride 1,000 ml @ 150 mls/hr Q6H40M ONCE IV 10/13/24 13:00 10/13/24 19:39 10/13/24 14:52 Sodium Chloride 1,000 ml @ 1,000 mls/hr Q1H ONCE IV 10/13/24 13:00 10/13/24 13:59 DC 10/13/24 13:34 Departure 1 Departure Time of Disposition: 11:47 Impression: Primary Impression: Sepsis due to urinary tract infection Additional Impression: BRITTNEE (acute kidney injury) Disposition: 09 ADMITTED INPATIENT Admit to: Med Surg Condition: Guarded Critical Care Note Critical Care Time?: Yes (90 min-critical care time only) Critical care comment: BUN elevated nephrology consultation Stability Stability form required: No Heart Score Heart Score: Heart Score Response (Comments) Value History N/A 0 EKG N/A 0 Age N/A 0 Risk Factors N/A 0 Troponin N/A 0 Total 0 I personally scribed for CHERELLE BROWN MD ([email or web address]) on 10/13/24 at 11:39. Electronically submitted by Alice Szymanski ([email or web address]). I personally scribed for CHERELLE BROWN MD ([email or web address]) on 10/13/24 at 12:52. Electronically submitted by Alice Szymanski ([email or web address]). CHERELLE BROWN MD Oct 13, 2024 11:39
[2024-10-13 11:47] LABS: Hematocrit 31.9 % (36.0-46.0); Hemoglobin 10.9 g/dL (12.2-16.2); Mean Corpuscular Hemoglobin 29.7 pg (28.0-32.0); Mean Corpuscular Volume 86.6 fL (80.0-100.0); Nucleated Red Blood Cells % 0.0 %
--- NOTE | 2024-10-13 11:50 | DVH ---
CHEST RADIOGRAPH Indication: sob Technique: Single frontal view of the chest was obtained COMPARISON: XY CHEST PORTABLE on DOS: 07/20/24, XY CHEST PORTABLE on DOS: 07/19/24, XY CHEST PORTABLE on DOS: 07/18/24, XY CHEST PORTABLE on DOS: 07/17/24, XY CHEST PORTABLE on DOS: 07/16/24 FINDINGS: Lines and Tubes: None Lungs: Increased interstitial prominence Pleura: No effusion. No pneumothorax. Cardiomediastinal contours: Unremarkable Bones: Unremarkable IMPRESSION: Mild pulmonary vascular congestion or viral pneumonia.
[2024-10-13 11:52] LABS: Chloride 103 mmol/L (98-107); Potassium 3.7 mmol/L (3.5-5.1); Sodium 139 mmol/L (136-145)
[2024-10-13 11:53] LABS: Anion Gap 14 (5-15); Carbon Dioxide 22 mmol/L (20-31)
[2024-10-13 11:54] LABS: Calcium 10.0 mg/dL (8.7-10.4)
[2024-10-13 11:58] LABS: BUN/Creatinine Ratio 28.2 (10.0-20.0); Glucose 103 mg/dL (74-106)
[2024-10-13 12:01] LABS: Blood Urea Nitrogen 100 mg/dL (9-23)
[2024-10-13] MEDS: SODIUM CHLORIDE 0.9% 1,000 ML IV ONE ×3 (13:34→18:00)
[2024-10-13 14:37] VITALS: PULSE 79; RESP 20; O2SAT 96
[2024-10-13] MEDS: cefTRIAXone 1GM/50ML D5W 50 ML IV ONE (14:52)
[2024-10-13 15:07] LABS: Urine Protein, UAD TRACE (Negative)
[2024-10-13] MEDS ORDERED: NITROGLYCERIN 0.4 MG SL TAB SL PRN (15:45)
[2024-10-13] MEDS ORDERED: ONDANSETRON HCL 4 MG/2 ML VIAL IV PRN (15:45)
--- NOTE | 2024-10-13 15:52 | DVHHP2 ---
History of Present Illness Reason for Visit: Needs south catheter History of Present Illness Bhavna Randolph is a 74-year-old female with a past medical history of hypertension, hyperlipidemia, hypothyroidism, diabetes, and CHF, who came to the hospital to have her South catheter replaced. Patient states she has had a South catheter since August of 2024, and this morning it fell out and she needs a new one. When labs were completed today she was found to be dehydrated and in acute renal failure. Cardiovascular: HTN, hyperipidemia Pulmonary: Asthma Past Surgical History: Hysterectomy Smoke: No ALCOHOL: none Drugs: None Lives: with Family Domestic Violence: Neg Review of Systems Constitutional: Yes: Weakness; No: Fever, Chills, Sweats, Malaise, Other Eyes: No: Pain, Vision change, Conjunctivae inflammation, Eyelid inflammation, Other, Redness ENT: No: Ear pain, Ear discharge, Nose pain, Nose discharge, Nose congestion, Mouth pain, Mouth swelling, Throat pain, Throat swelling, Other Respiratory: No: Cough, Dry, Shortness of breath, SOB with excertion, Wheezing, Hemoptysis, Pleuritic Pain, Sputum, Wheezing, Other Cardiovascular: No: Chest Pain, Palpitations, Orthopnea, Paroxysmal Noc. Dyspnea, Edema, Lt Headedness, Other Gastrointestinal: No: Nausea, Vomiting, Abdominal Pain, Diarrhea, Constipation, Melena, Hematochezia, Other Genitourinary: Dysuria, Frequency; No Incontinence, No Hematuria, No Retention, No Other Musculoskeletal: No: other, neck pain, shoulder pain, arm pain, back pain, hand pain, leg pain, foot pain Skin: No: Rash, Lesions, Jaundice, Bruising, Other Neurological: Weakness; No: Numbness, Incoordination, Change in speech, Confusion, Seizures, Other Allergies: Coded Allergies: NO KNOWN ALLERGIES (Unverified , 11/11/18) Exam Vital Signs Vital Signs Date Time Temp Pulse Resp B/P (MAP) Pulse Ox O2 Delivery O2 Flow Rate FiO2 10/13/24 14:37 79 20 96 Room Air* 0 21 10/13/24 14:00 115/81 (92) 10/13/24 13:31 97.7 97.7 General Appearance: Alert, Oriented X3, Cooperative, mild distress HEENT: Atraumatic, PERRLA Respiratory: Clear to auscultation, Normal air movement Cardiovascular: Regular rate, Normal S1, Normal S2 Abdominal: Normal bowel sounds, Soft Extremities: No clubbing, No cyanosis, Other (bilateral lower extremity edema) Skin: No rashes, No breakdown, No significant lesion Neuro: Other (mostly wheelchair bound at baseline) Psych/Mental Status: Mental status NL Labs/Xrays Labs Test 10/13/24 14:44 10/13/24 11:34 Range/Units Urine Color Colorless Yellow Urine Clarity Turbid H Clear Urine pH 5.0 5.0-9.0 Urine Specific [place] 1.012 1.001-1.035 Urine Protein Trace H Negative Urine Ketones Negative Negative Urine Blood 2+ H Negative /uL Urine Nitrite Negative Negative Urine Bilirubin Negative Negative Urine Urobilinogen Normal Negative mg/dL Urine Leukocyte Esterase 3+ Negative /uL Urine RBC 18 0 - 4 /hpf Urine Microscopic WBC 43 H 0-5 /HPF Urine Squamous Epithelial Cells Many <5 /hpf Urine Bacteria Few H None Seen /hpf Urine Glucose Normal Normal mg/dL White Blood Count 6.2 4.4-10.8 10^3/uL Red Blood Count 3.68 L 4.0-5.20 10^6/uL Hemoglobin 10.9 L 12.2-16.2 g/dL Hematocrit 31.9 L 36.0-46.0 % Mean Corpuscular Volume 86.6 80.0-100.0 fL Mean Corpuscular Hemoglobin 29.7 28.0-32.0 pg Mean Corpuscular Hemoglobin Concent 34.2 32.0-36.0 g/dL Red Cell Distribution Width 16.5 H 11.8-14.3 % Platelet Count 182 140-450 10^3/uL Mean Platelet Volume 6.9 6.9-10.8 fL Neutrophils (%) (Auto) 73.8 37.0-80.0 % Lymphocytes (%) (Auto) 18.2 10.0-50.0 % Monocytes (%) (Auto) 3.3 0.0-12.0 % Eosinophils (%) (Auto) 4.2 0.0-7.0 % Basophils (%) (Auto) 0.5 0.0-2.0 % Neutrophils # (Auto) 4.5 1.6-8.6 10 ^3/uL Lymphocytes # (Auto) 1.1 0.4-5.4 10 ^3/uL Monocytes # (Auto) 0.2 0-1.3 10 ^3/uL Eosinophils # (Auto) 0.3 0-0.8 10 ^3/uL Basophils # (Auto) 0 0-0.2 10 ^3/uL Nucleated Red Blood Cells 0.0 % Sodium Level 139 136-145 mmol/L Potassium Level 3.7 3.5-5.1 mmol/L Chloride Level 103 98-107 mmol/L Carbon Dioxide Level 22 20-31 mmol/L Anion Gap 14 5-15 Blood Urea Nitrogen 100 *H 9-23 mg/dL Creatinine 3.55 H 0.550-1.02 mg/dL Glomerular Filtration Rate Calc 13 >90 mL/min BUN/Creatinine Ratio 28.2 H 10.0-20.0 Serum Glucose 103 74-106 mg/dL Calcium Level 10.0 8.7-10.4 mg/dL Troponin I High Sensitivity 24 </=34 ng/L CHEST RADIOGRAPH FINDINGS: Lines and Tubes: None Lungs: Increased interstitial prominence Pleura: No effusion. No pneumothorax. Cardiomediastinal contours: Unremarkable Bones: Unremarkable IMPRESSION: Mild pulmonary vascular congestion or viral pneumonia. Assessment/Plan Assessment/Plan Assessment: BRITTNEE (acute kidney injury), Dehydration, UTI, Hypertension, Hyperlipidemia, Hypothyroidism, Plan: Admit to Med-Surg, IV antibiotics, IV hydration, UA, urine culture, Place South catheter, Home medications reconciled, Plan discussed with: Patient My Orders Orders - YOLANDA STRANGE [employer]PER[employer] Procedure Category Date Status Time Admit ADMIT 10/13/24 Transmitted 15:36 Code Status CODE 10/13/24 Transmitted 15:36 2 Gm Sodium Diet DIET 10/13/24 Transmitted Dinner Hydrocodone-Acet PHA 10/13/24 Transmitted 5/325mg Tab ([place] 15:45 Ondansetron Hcl PHA 10/13/24 Transmitted (Zofran) 15:45 Docusate Sodium PHA 10/13/24 Transmitted Capsule (Colace 15:45 Complete Blood Count LAB 10/14/24 Verified 04:00 Comprehensive LAB 10/14/24 Verified Metabolic Panel 04:00 Pt Request For Service PT 10/13/24 Transmitted 15:36 Condition: Serious RADHAMES 10/13/24 Transmitted 15:36 Acetaminophen Tablet PHA 10/13/24 Transmitted (Tylenol Tablet) 15:45 Nitroglycerin PHA 10/13/24 Transmitted Sublingual (Ntrostat 15:45 Stat Ekg For Chest RADHAMES 10/13/24 Transmitted Pain 15:36 Carbamazepine Tablet PHA 10/13/24 Transmitted (Tegretol Tablet) 22:00 Clonazepam Tablet PHA 10/13/24 Transmitted (Klonopin Tablet) 22:00 Furosemide Tablet PHA 10/14/24 Transmitted (Lasix Tablet) 10:00 Levothyroxine Tablet PHA 10/14/24 Transmitted (Synthroid Tablet) 07:00 Losartan Tablet 10/14/24 Transmitted (Cozaar Tablet) 10:00 Oxycodone Er Tablet [facility] 10/13/24 Transmitted (Oxycontin Er Tablet 22:00 (Nf) Atorvastatin PHA 10/14/24 Transmitted Calcium 10:00 (Nf) Diclofenac PHA 10/13/24 Transmitted Sodium (Diclofenac 22:00 (Nf) Febuxostat PHA 10/14/24 Transmitted 10:00 (Nf) Omeprazole (Cvs PHA 10/13/24 Transmitted Omeprazole Odt) 22:00 Date of Service: Oct 13, 2024 Billing Provider: YOLANDA STRANGE Common Visit Codes: [id number] INP/OBS CARE (MOD) YOLANDA STRANGE Oct 13, 2024 15:52
[2024-10-13 19:25] VITALS: PULSE 71; RESP 17; O2SAT 97
[2024-10-13 21:41] VITALS: BP 125/84; PULSE 73; RESP 15; TEMP 98.9; O2SAT 95
[2024-10-13] MEDS: DICLOFENAC SODIUM 50 MG PO SCH (22:00)
[2024-10-13] MEDS: OMEPRAZOLE-SOD BICARB 20 MG POWDER PO SCH (22:00)
[2024-10-13] MEDS: carBAMazepine 200 MG TAB PO SCH (22:41)
[2024-10-13] MEDS: ATORVASTATIN 20 MG TAB PO SCH (22:41)
[2024-10-13] MEDS: clonazePAM 0.5 MG TAB PO SCH (22:42)
[2024-10-13 22:51] VITALS: PULSE 72; RESP 15; O2SAT 95
[2024-10-14] VITALS (8 sets, daily range): BP systolic 95–110; BP diastolic 58–98; PULSE 63–80; RESP 12–16; TEMP 98–99.1; O2SAT 95–100
[2024-10-14] MEDS: LEVOTHYROXINE SODIUM 50 MCG TAB PO SCH (06:25)
[2024-10-14 06:46] LABS: Hematocrit 26.6 % (36.0-46.0); Hemoglobin 9.1 g/dL (12.2-16.2); Mean Corpuscular Hemoglobin 29.7 pg (28.0-32.0); Mean Corpuscular Volume 87.2 fL (80.0-100.0); Nucleated Red Blood Cells % 0.1 %
[2024-10-14 06:57] LABS: Albumin 3.7 g/dL (3.2-4.8); Alkaline Phosphatase 85 U/L (46-116); Anion Gap 13 (5-15); BUN/Creatinine Ratio 28.7 (10.0-20.0); Calcium 9.2 mg/dL (8.7-10.4); Potassium 3.6 mmol/L (3.5-5.1); Sodium 141 mmol/L (136-145); Total Protein 6.0 g/dL (5.7-8.2)
[2024-10-14 07:06] LABS: Alanine Aminotransferase < 9 U/L (7-40); Bilirubin, Total 0.3 mg/dL (0.2-1.0); Carbon Dioxide 20 mmol/L (20-31); Chloride 108 mmol/L (98-107); Glucose 74 mg/dL (74-106)
[2024-10-14 07:07] LABS: Blood Urea Nitrogen 83 mg/dL (9-23)
[2024-10-14] MEDS: LOSARTAN POTASSIUM 50 MG TAB PO SCH (10:00)
[2024-10-14] MEDS: cefTRIAXone 1GM/50ML D5W 50 ML IV SCH (10:14)
[2024-10-14] MEDS: FUROSEMIDE 40 MG TAB PO SCH (10:15)
[2024-10-14] MEDS: DOCUSATE SOD 100 MG CAP PO PRN (13:23)
[2024-10-14] MEDS: HYDROcodone-ACET 5/325MG TAB PO PRN (13:23)
--- NOTE | 2024-10-14 13:52 | DVHPN2 ---
Reviewed: Care Plan, H&P, Labs, Medications, Previous Orders, Radiology Changes from previous H/P or p: No Changes Eyes: No Pain, No Vision change, No Conjunctivae inflammation, No Eyelid inflammation, No Other, No Redness ENT: No Ear pain, No Ear discharge, No Nose pain, No Nose discharge, No Nose congestion, No Mouth pain, No Mouth swelling, No Throat pain, No Throat swelling, No Other Cardiovascular: No Chest Pain, No Palpitations, No Orthopnea, No Paroxysmal Noc. Dyspnea, No Edema, No Lt Headedness, No Other Respiratory: No Cough, No Dry, No Shortness of breath, No SOB with excertion, No Wheezing, No Hemoptysis, No Pleuritic Pain, No Sputum, No Other Gastrointestinal: No Nausea, No Vomiting, No Abdominal Pain, No Diarrhea, No Constipation, No Melena, No Hematochezia, No Other Genitourinary: Dysuria, Frequency; No Incontinence, No Hematuria, No Retention, No Other Musculoskeletal: No other, No neck pain, No shoulder pain, No arm pain, No back pain, No hand pain, No leg pain, No foot pain Skin: No Rash, No Lesions, No Jaundice, No Bruising, No Other Objective Vitals Vital Signs Date Time Temp Pulse Resp B/P (MAP) Pulse Ox O2 Delivery O2 Flow Rate FiO2 10/14/24 12:30 98.2 69 12 95/62 (73) 98 98.2 10/14/24 08:00 Room Air* 0 21 Intake/Output Intake and Output 10/14/24 07:00 Intake Total 2025 ml Output Total 500 ml Balance 1525 ml Intake Oral 100 ml IV Total 1925 ml Output Urine Total 500 ml Medications Current Medications Medications Dose Ordered Sig/Ginger Route Start Time Stop Time Status Last Admin Dose Admin Acetaminophen/ Hydrocodone Bitart 1 tab Q4HP PRN PO 10/13/24 15:45 10/14/24 13:23 1 TAB Ondansetron HCl 4 mg Q4HP PRN IV 10/13/24 15:45 Docusate Sodium 100 mg BIDPRN PRN PO 10/13/24 15:45 10/14/24 13:23 100 MG Acetaminophen 650 mg Q6HP PRN PO 10/13/24 15:45 Nitroglycerin 0.4 mg Q5MINP PRN SL 10/13/24 15:45 Carbamazepine 200 mg BID PO 10/13/24 22:00 10/14/24 10:16 200 MG Clonazepam 0.5 mg BIDPRN PO 10/13/24 22:00 10/14/24 10:16 0.5 MG Furosemide 40 mg DAILY PO 10/14/24 10:00 10/14/24 10:15 40 MG Levothyroxine Sodium 75 mcg QAM PO 10/14/24 07:00 10/14/24 06:25 75 MCG Losartan Potassium 25 mg DAILY PO 10/14/24 10:00 Oxycodone HCl 10 mg BID PO 10/13/24 22:00 10/14/24 10:15 10 MG Atorvastatin Calcium 40 mg HS PO 10/13/24 22:00 10/13/24 22:41 40 MG Patient Own Medication 1 tab Q12HR PO 10/13/24 22:00 Patient Own Medication 1 tab DAILY PO 10/14/24 10:00 Omeprazole 20 mg BID PO 10/13/24 22:00 Ceftriaxone Sodium 50 ml @ 100 mls/hr DAILY@09 IV 10/14/24 09:00 10/14/24 10:14 100 MLS/HR Laboratory Results Laboratory Tests 10/14/24 05:21 Chemistry Test 10/14/24 05:21 Albumin 3.7 g/dL (3.2-4.8) Calcium Level 9.2 mg/dL (8.7-10.4) Total Protein 6.0 g/dL (5.7-8.2) LFT Test 10/14/24 05:21 Alanine Aminotransferase (ALT) < 9 U/L (7-40) Alkaline Phosphatase 85 U/L (46-116) Aspartate Amino Transferase (AST) 23 U/L (13-40) Total Bilirubin 0.3 mg/dL (0.2-1.0) Urinalysis Test 10/13/24 14:44 Urine Color Colorless (Yellow) Urine Clarity Turbid (Clear) H Urine pH 5.0 (5.0-9.0) Urine Specific [place] 1.012 (1.001-1.035) Urine Protein Trace (Negative) H Urine Ketones Negative (Negative) Urine Blood 2+ /uL (Negative) H Urine Nitrite Negative (Negative) Urine Bilirubin Negative (Negative) Urine Urobilinogen Normal mg/dL (Negative) Urine Leukocyte Esterase 3+ /uL (Negative) Urine RBC 18 /hpf (0 - 4) Urine Microscopic WBC 43 /HPF (0-5) H Urine Squamous Epithelial Cells Many /hpf (<5) Urine Bacteria Few /hpf (None Seen) H Urine Glucose Normal mg/dL (Normal) Microbiology Microbiology Date/Time Source Procedure Growth Status 10/13/24 14:44 Urine - [place] Urine Culture - Preliminary Resulted Assessment/Plan Assessment/Plan BRITTNEE (acute kidney injury), Dehydration, UTI, Hypertension, Hyperlipidemia, Hypothyroidism, Plan: Continue current management Continue IV antibiotic Continue HTN meds Continue pain medication Plan discussed with: Patient Date of Service: Oct 14, 2024 Billing Provider: VIJAY COMBS MD Common Visit Codes: [id number] INP/OBS CARE(HIGH) VIJAY COMBS MD Oct 14, 2024 13:52
[2024-10-15] VITALS (10 sets, daily range): BP systolic 87–124; BP diastolic 53–83; PULSE 62–76; RESP 12–17; TEMP 36.8; O2SAT 90–98
[2024-10-15] MEDS: ACETAMINOPHEN 325 MG TAB PO PRN (06:08)
[2024-10-15] MEDS: SODIUM CHLORIDE 0.9% 500 ML IV ONE (13:00)
[2024-10-15 13:44] LABS: Hemoglobin 8.3 g/dL (12.2-16.2)
[2024-10-15 13:45] LABS: Anion Gap 11 (5-15); Calcium 9.8 mg/dL (8.7-10.4); Carbon Dioxide 24 mmol/L (20-31); Chloride 106 mmol/L (98-107); Sodium 141 mmol/L (136-145)
[2024-10-15 13:46] LABS: Hematocrit 24.6 % (36.0-46.0); Mean Corpuscular Hemoglobin 29.3 pg (28.0-32.0); Mean Corpuscular Volume 86.7 fL (80.0-100.0)
[2024-10-15 13:52] LABS: BUN/Creatinine Ratio 28.8 (10.0-20.0); Glucose 91 mg/dL (74-106); Potassium 3.5 mmol/L (3.5-5.1)
[2024-10-15 13:54] LABS: Blood Urea Nitrogen 87 mg/dL (9-23)
--- NOTE | 2024-10-15 14:55 | ECG ---
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
[2024-10-15 15:42] LABS: Total Cells Counted 100.0 (100)
--- NOTE | 2024-10-15 18:17 | DVHINCON2 ---
Date of service: Oct 15, [address] Aris Mcfarlane Reason for Consultation Elevated creatinine History of Present Illness This is a 74-year-old female with a history of CKD stage 4 with a baseline creatinine of around three, hypertension, history of gout, anemia in CKD, hyp erlipidemia brought into the emergency room has a Gastelum catheter was displaced. As per the history patient had the indwelling Gastelum catheter in for few months. Gastelum catheter was replaced in the ER. Labs done in the ER showed evidence of increased creatinine and has been nephrology consultation As stated above patient has a history of CKD stage 4 secondary to hypertension with a baseline creatinine of around three. She denies any shortness of breaths. Edema to lower extremities. Past Medical History As stated above Past Surgical History Hysterectomy Family History: Patient reports no known family medical history. Social History No active history of smoking, alcohol or drug abuse Allergies: Coded Allergies: NO KNOWN ALLERGIES (Unverified , 11/11/18) Home Meds Reported Medications Febuxostat (Febuxostat) 40 Mg Tab, 1 TAB PO DAILY for 30 Days, #30 07/07/24 Diclofenac Sodium (Diclofenac Sodium Ec) 50 Mg Tab, 1 TAB PO Q12HR for 30 Days, #60 07/07/24 Epoetin Julito (Epogen) 20,000 Unit/Ml Inj, 1 ML SC Q30D for 60 Days, #2 07/07/24 Gabapentin (Gabapentin) 400 Mg Cap, 1 CAP PO TID for 40 Days, #120 07/07/24 B-Complex W/ C & Folic Acid (Rebecca-Lilly Rx) Tab, 1 TAB PO DAILY for 30 Days, #30 03/12/24 Fluticasone Propionate (Nasal) (Fluticasone Propionate Na) 50 Mcg/Act Spr, 1 SPRAY EACHNOSTRI BID for 30 Days, #16 03/12/24 Oxycodone W/ Acetaminophen (Apap/Oxycodone) 1 Tab Tab, 1 TAB PO Q8HR for 30 Days, #90 03/12/24 Pregabalin (Lyrica) 75 Mg Cap, 1 CAP PO Q12HR for 30 Days, #60 03/12/24 Losartan Potassium (Losartan Potassium) 50 Mg Tab, 0.5 TAB PO DAILY for 100 Days, #50 03/12/24 Furosemide (Furosemide) 40 Mg Tab, 1 TAB PO QAM PRN for 30 Days, #30 03/12/24 Ferrous Sulfate (Ferosul) 325 Mg Tab, 1 TAB PO 3X/WEEK for 84 Days, #36 03/12/24 Clonazepam (Clonazepam) 0.5 Mg Tab, 1 TAB PO BIDPRN for 88 Days, #176 03/12/24 Carbamazepine (Carbamazepine) 200 Mg Tab, 1 TAB PO BID for 90 Days, #180 03/12/24 Oxycodone Hcl (OxyCONTIN ER Tablet) 10 Mg Tb, 1 TAB PO BID, #60 TAB 03/12/24 Omeprazole ([facility] Omeprazole Odt) 20 Mg Tab, 1 TAB PO BID 08/03/22 Montelukast Sodium (MONTELUKAST SODIUM) 10 Mg Tab, 1 TAB PO DAILY for 100 Days, #100 08/03/22 Atorvastatin Calcium (ATORVASTATIN CALCIUM) 40 Mg Tab, 1 TAB PO DAILY for 90 Days, #90 06/15/18 Amlodipine Besylate (Amlodipine Besylate) 10 Mg Tab, 1 TAB PO DAILY, #30 TAB 5 Refills 06/15/18 Levothyroxine Sodium (Levothyroxine Sodium) 50 Mcg Tab, 75 MCG PO QAM for 30 Days, #30 01/25/17 Venlafaxine Hydrochloride (Venlafaxine Hcl) 75 Mg Tab, 200 MG PO DAILY, TAB 01/25/17 Discontinued Scripts Methylprednisolone (Medrol Dosepak) 4 Mg Gerald, 4 MG PO UD, #21 TAB UAD Prov:DIANE FRANKLIN NP 03/17/24 Docusate Sodium (Colace) 100 Mg Cap, 1 CAP PO BID, #60 CAP 2 Refills Prov:JUAN DOUGLAS MD 08/09/22 Hydrocodone-Acetaminophen (Hydrocodone Bitartrate/AC 5-325 mg) 1 Tab Tab, 1 TAB PO Q6HP PRN, #30 TAB Prov:JUAN DOUGLAS MD 08/09/22 Ondansetron (Zofran) 4 Mg Tab, 4 MG PO Q4HP PRN, #30 TAB Prov:JUAN DOUGLAS MD 08/09/22 Current Medications Current Medications Medications (Trade) Dose Ordered Sig/Ginger Route PRN Reason Start Time Stop Time Status Last Admin Pantoprazole Sodium (Protonix Tablet) 40 mg BID PO 10/15/24 22:00 Review of Systems Twelve point review of system negative except as stated in the HPI Vital Signs Vital Signs Date Time Temp Pulse Resp B/P (MAP) Pulse Ox O2 Delivery O2 Flow Rate FiO2 10/15/24 16:42 98.1 63 12 103/67 (79) 98 98.1 10/15/24 08:10 Room Air* 0 21 Physical Exam Awake alert oriented x3 HEENT: Normocephalic, no JVD Lungs: Bilateral good air entry CVS: S1, S2 regular rate rhythm Abdomen: Soft bowel sounds present SEWING DEMONSTRATOR: No focal deficits Extremities: No edema Labs/Diagnostic Data Labs Test 10/15/24 13:12 10/14/24 05:21 10/13/24 14:44 10/13/24 11:34 Range/Units White Blood Count 4.6 4.4-10.8 10^3/uL Red Blood Count 2.84 L 4.0-5.20 10^6/uL Hemoglobin 8.3 L 12.2-16.2 g/dL Hematocrit 24.6 L 36.0-46.0 % Mean Corpuscular Volume 86.7 80.0-100.0 fL Mean Corpuscular Hemoglobin 29.3 28.0-32.0 pg Mean Corpuscular Hemoglobin Concent 33.8 32.0-36.0 g/dL Red Cell Distribution Width 16.4 H 11.8-14.3 % Platelet Count 158 140-450 10^3/uL Mean Platelet Volume 6.9 6.9-10.8 fL Neutrophils (%) (Auto) 37.0-80.0 % Lymphocytes (%) (Auto) 10.0-50.0 % Monocytes (%) (Auto) 0.0-12.0 % Eosinophils (%) (Auto) 0.0-7.0 % Basophils (%) (Auto) 0.0-2.0 % Neutrophils # (Auto) 1.6-8.6 10 ^3/uL Lymphocytes # (Auto) 0.4-5.4 10 ^3/uL Monocytes # (Auto) 0-1.3 10 ^3/uL Differential Total Cells Counted 100.0 100 Neutrophils % (Manual) 47 37.0-80.0 Band Neutrophils % (Manual) 0 Lymphocytes % (Manual) 42 10.0-50.0 Monocytes % (Manual) 0 0-12 Eosinophils % (Manual) 11 H 0-7 Basophils % (Manual) 0 0.0-2.0 Metamyelocytes % (manual) 0 Myelocytes % (Manual) 0 Promyelocytes % (Manual) 0 Blast Cells % (Manual) 0 Reactive Lymphocytes 0 Platelet Estimate Adequate Sodium Level 141 136-145 mmol/L Potassium Level 3.5 3.5-5.1 mmol/L Chloride Level 106 98-107 mmol/L Carbon Dioxide Level 24 20-31 mmol/L Anion Gap 11 5-15 Blood Urea Nitrogen 87 *H 9-23 mg/dL Creatinine 3.02 H 0.550-1.02 mg/dL Glomerular Filtration Rate Calc 16 >90 mL/min BUN/Creatinine Ratio 28.8 H 10.0-20.0 Serum Glucose 91 74-106 mg/dL Calcium Level 9.8 8.7-10.4 mg/dL Eosinophils # (Auto) 0.8 0-0.8 10 ^3/uL Basophils # (Auto) 0 0-0.2 10 ^3/uL Nucleated Red Blood Cells 0.1 % Total Bilirubin 0.3 0.2-1.0 mg/dL Aspartate Amino Transferase (AST) 23 13-40 U/L Alanine Aminotransferase (ALT) < 9 7-40 U/L Alkaline Phosphatase 85 46-116 U/L Total Protein 6.0 5.7-8.2 g/dL Albumin 3.7 3.2-4.8 g/dL Urine Color Colorless Yellow Urine Clarity Turbid H Clear Urine pH 5.0 5.0-9.0 Urine Specific [place] 1.012 1.001-1.035 Urine Protein Trace H Negative Urine Ketones Negative Negative Urine Blood 2+ H Negative /uL Urine Nitrite Negative Negative Urine Bilirubin Negative Negative Urine Urobilinogen Normal Negative mg/dL Urine Leukocyte Esterase 3+ Negative /uL Urine RBC 18 0 - 4 /hpf Urine Microscopic WBC 43 H 0-5 /HPF Urine Squamous Epithelial Cells Many <5 /hpf Urine Bacteria Few H None Seen /hpf Urine Glucose Normal Normal mg/dL Troponin I High Sensitivity 24 </=34 ng/L Microbiology Date/Time Source Procedure Growth Status 10/13/24 14:44 Urine - Gastelum Port Urine Culture - Final Complete Assessment CKD stage 4 Hypertensive renal disease History of gout Anemia in CKD Hyperlipidemia Plan/Recommendation GFR is stable. No further workup required from renal standpoint. Outpatient follow up with her primary social media developer. Hold off on losartan and Lasix because of hypotension Physical therapy evaluation Consider discontinuing the Gastelum catheter Plan discussed with: Patient MONI GUPTA MD Oct 15, 2024 18:17
[2024-10-15] MEDS: PANTOPRAZOLE 40 MG TAB PO SCH (21:46)
[2024-10-16 01:00] VITALS: BP 102/72; PULSE 66; RESP 17; TEMP 98.3; O2SAT 94
[2024-10-16 05:00] VITALS: BP 98/67; PULSE 69; RESP 18; TEMP 97.6; O2SAT 98
[2024-10-16 09:00] VITALS: BP 108/41; PULSE 65; RESP 14; TEMP 98.2; O2SAT 96
[2024-10-16] MEDS: LACTULOSE 20Gm/30ML SOLN PO ONE (12:31)
[2024-10-16 13:00] VITALS: BP 122/70; PULSE 65; RESP 12; TEMP 97.9; O2SAT 98
--- NOTE | 2024-10-16 15:42 | DVHPN2 ---
Progress Note - Dictate Date Seen: Oct 16, 2024 Medical Necessity Reason Pt with a Central, PICC or Fol: No Subjective No acute issues overnight vital signs Vital Sign Date Time Temp Pulse Resp B/P (MAP) Pulse Ox O2 Delivery O2 Flow Rate FiO2 10/16/24 13:00 97.9 65 12 122/70 (87) 98 97.9 10/16/24 08:10 Room Air* 0 21 Total Intake and Output 10/15/24 10/15/24 10/16/24 15:00 23:00 07:00 Intake Total 500 ml 1200 ml 800 ml Output Total 200 ml 700 ml Balance 500 ml 1000 ml 100 ml medications Current Medications Medications Dose Ordered Sig/Ginger Route Start Time Stop Time Status Last Admin Dose Admin Acetaminophen/ Hydrocodone Bitart 1 tab Q4HP PRN PO 10/13/24 15:45 10/14/24 13:23 1 TAB Ondansetron HCl 4 mg Q4HP PRN IV 10/13/24 15:45 Docusate Sodium 100 mg BIDPRN PRN PO 10/13/24 15:45 10/14/24 13:23 100 MG Acetaminophen 650 mg Q6HP PRN PO 10/13/24 15:45 10/16/24 04:06 650 MG Nitroglycerin 0.4 mg Q5MINP PRN SL 10/13/24 15:45 Carbamazepine 200 mg BID PO 10/13/24 22:00 10/16/24 08:49 200 MG Clonazepam 0.5 mg BIDPRN PO 10/13/24 22:00 10/16/24 08:49 0.5 MG Levothyroxine Sodium 75 mcg QAM PO 10/14/24 07:00 10/16/24 05:44 75 MCG Oxycodone HCl 10 mg BID PO 10/13/24 22:00 10/16/24 08:48 10 MG Atorvastatin Calcium 40 mg HS PO 10/13/24 22:00 10/15/24 21:46 40 MG Patient Own Medication 1 tab Q12HR PO 10/13/24 22:00 Patient Own Medication 1 tab DAILY PO 10/14/24 10:00 Ceftriaxone Sodium 50 ml @ 100 mls/hr DAILY@09 IV 10/14/24 09:00 10/16/24 08:48 100 MLS/HR Pantoprazole Sodium 40 mg BID PO 10/15/24 22:00 10/16/24 08:49 40 MG objective Awake alert oriented x3 HEENT: Normocephalic, no JVD Lungs: Bilateral good air entry CVS: S1, S2 regular rate rhythm Abdomen: Soft bowel sounds present PLATER BARREL: No focal deficits Extremities: No edema laboratory and microbiology Laboratory Tests 10/15/24 13:12 Test 10/15/24 13:12 Range/Units Serum Glucose 91 74-106 mg/dL Problem List CKD stage 4 Hypertensive renal disease History of gout Anemia in CKD Hyperlipidemia Assessment/Plan GFR is stable. No further workup required from renal standpoint. Outpatient follow up with her primary websphere process server developer. Hold off on losartan and Lasix because of hypotension Physical therapy evaluation Dietary Evaluation Review Comments: 1) CCHO 60gm + cardiac diet 2) Refer to CDE on DC Expected Outcomes/Goals: To meet >75% estimated needs Fu 3-5 days Plan discussed with: Patient MONI GUPTA MD Oct 16, 2024 15:42
[2024-10-16 16:45] VITALS: BP 92/63; PULSE 74; RESP 16; TEMP 98; O2SAT 96
[2024-10-16 21:00] VITALS: BP 92/63; PULSE 72; RESP 17; TEMP 98; O2SAT 96
--- NOTE | 2024-10-17 00:44 | DVHPN2 ---
Reviewed: Care Plan, H&P, Labs, Medications, Previous Orders, Radiology Eyes: No Pain, No Vision change, No Conjunctivae inflammation, No Eyelid inflammation, No Other, No Redness ENT: No Ear pain, No Ear discharge, No Nose pain, No Nose discharge, No Nose congestion, No Mouth pain, No Mouth swelling, No Throat pain, No Throat swelling, No Other Cardiovascular: No Chest Pain, No Palpitations, No Orthopnea, No Paroxysmal Noc. Dyspnea, No Edema, No Lt Headedness, No Other Respiratory: No Cough, No Dry, No Shortness of breath, No SOB with excertion, No Wheezing, No Hemoptysis, No Pleuritic Pain, No Sputum, No Other Gastrointestinal: No Nausea, No Vomiting, No Abdominal Pain, No Diarrhea, No Constipation, No Melena, No Hematochezia, No Other Genitourinary: Dysuria, Frequency; No Incontinence, No Hematuria, No Retention, No Other Musculoskeletal: No other, No neck pain, No shoulder pain, No arm pain, No back pain, No hand pain, No leg pain, No foot pain Skin: No Rash, No Lesions, No Jaundice, No Bruising, No Other Objective Vitals Vital Signs Date Time Temp Pulse Resp B/P (MAP) Pulse Ox O2 Delivery O2 Flow Rate FiO2 10/16/24 21:00 98.0 72 17 92/63 (73) 96 98.0 10/16/24 20:00 Room Air* 0 21 Intake/Output Intake and Output 10/17/24 07:00 Intake Total 550 ml Output Total 600 ml Balance -50 ml Intake Oral 500 ml IV Total 50 ml Output Urine Total 600 ml Medications Current Medications Medications Dose Ordered Sig/Ginger Route Start Time Stop Time Status Last Admin Dose Admin Acetaminophen/ Hydrocodone Bitart 1 tab Q4HP PRN PO 10/13/24 15:45 10/16/24 18:42 1 TAB Ondansetron HCl 4 mg Q4HP PRN IV 10/13/24 15:45 Docusate Sodium 100 mg BIDPRN PRN PO 10/13/24 15:45 10/16/24 21:49 100 MG Acetaminophen 650 mg Q6HP PRN PO 10/13/24 15:45 10/16/24 04:06 650 MG Nitroglycerin 0.4 mg Q5MINP PRN SL 10/13/24 15:45 Carbamazepine 200 mg BID PO 10/13/24 22:00 10/16/24 21:50 200 MG Clonazepam 0.5 mg BIDPRN PO 10/13/24 22:00 10/16/24 22:59 0.5 MG Levothyroxine Sodium 75 mcg QAM PO 10/14/24 07:00 10/16/24 05:44 75 MCG Oxycodone HCl 10 mg BID PO 10/13/24 22:00 10/16/24 21:48 10 MG Atorvastatin Calcium 40 mg HS PO 10/13/24 22:00 10/16/24 21:49 40 MG Patient Own Medication 1 tab Q12HR PO 10/13/24 22:00 Patient Own Medication 1 tab DAILY PO 10/14/24 10:00 Ceftriaxone Sodium 50 ml @ 100 mls/hr DAILY@09 IV 10/14/24 09:00 10/16/24 08:48 100 MLS/HR Pantoprazole Sodium 40 mg BID PO 10/15/24 22:00 10/16/24 21:49 40 MG Laboratory Results Laboratory Tests 10/15/24 13:12 Urinalysis Test 10/13/24 14:44 Urine Color Colorless (Yellow) Urine Clarity Turbid (Clear) H Urine pH 5.0 (5.0-9.0) Urine Specific [place] 1.012 (1.001-1.035) Urine Protein Trace (Negative) H Urine Ketones Negative (Negative) Urine Blood 2+ /uL (Negative) H Urine Nitrite Negative (Negative) Urine Bilirubin Negative (Negative) Urine Urobilinogen Normal mg/dL (Negative) Urine Leukocyte Esterase 3+ /uL (Negative) Urine RBC 18 /hpf (0 - 4) Urine Microscopic WBC 43 /HPF (0-5) H Urine Squamous Epithelial Cells Many /hpf (<5) Urine Bacteria Few /hpf (None Seen) H Urine Glucose Normal mg/dL (Normal) Microbiology Microbiology Date/Time Source Procedure Growth Status 10/13/24 14:44 Urine - Gastelum Port Urine Culture - Final Complete Assessment/Plan Assessment/Plan BRITTNEE (acute kidney injury), Dehydration, UTI, Hypertension, Hyperlipidemia, Hypothyroidism, Plan: Continue current management Continue IV antibiotic Continue HTN meds Continue pain medication VIJAY COMBS MD Oct 17, 2024 00:44
[2024-10-17 01:00] VITALS: BP 95/63; PULSE 84; PULSE 85; RESP 18; TEMP 98; O2SAT 95
[2024-10-17 05:00] VITALS: BP 93/62; PULSE 83; RESP 17; TEMP 98.1; O2SAT 97
[2024-10-17 09:00] VITALS: BP 91/59; PULSE 74; RESP 16; TEMP 98.2; O2SAT 97
--- NOTE | 2024-10-17 10:11 | DVHPN2 ---
Progress Note - Dictate Date Seen: Oct 17, 2024 Medical Necessity Reason Pt with a Central, PICC or Fol: No Subjective No acute issues overnight vital signs Vital Sign Date Time Temp Pulse Resp B/P (MAP) Pulse Ox O2 Delivery O2 Flow Rate FiO2 10/17/24 09:00 98.2 74 16 91/59 (70) 97 98.2 10/16/24 20:00 Room Air* 0 21 Total Intake and Output 10/16/24 10/16/24 10/17/24 15:00 23:00 07:00 Intake Total 50 ml 500 ml 500 ml Output Total 600 ml 550 ml Balance 50 ml -100 ml -50 ml medications Current Medications Medications Dose Ordered Sig/Ginger Route Start Time Stop Time Status Last Admin Dose Admin Acetaminophen/ Hydrocodone Bitart 1 tab Q4HP PRN PO 10/13/24 15:45 10/16/24 18:42 1 TAB Ondansetron HCl 4 mg Q4HP PRN IV 10/13/24 15:45 Docusate Sodium 100 mg BIDPRN PRN PO 10/13/24 15:45 10/16/24 21:49 100 MG Acetaminophen 650 mg Q6HP PRN PO 10/13/24 15:45 10/16/24 04:06 650 MG Nitroglycerin 0.4 mg Q5MINP PRN SL 10/13/24 15:45 Carbamazepine 200 mg BID PO 10/13/24 22:00 10/17/24 08:38 200 MG Clonazepam 0.5 mg BIDPRN PO 10/13/24 22:00 10/17/24 08:39 0.5 MG Levothyroxine Sodium 75 mcg QAM PO 10/14/24 07:00 10/17/24 06:17 75 MCG Oxycodone HCl 10 mg BID PO 10/13/24 22:00 10/17/24 08:40 10 MG Atorvastatin Calcium 40 mg HS PO 10/13/24 22:00 10/16/24 21:49 40 MG Patient Own Medication 1 tab Q12HR PO 10/13/24 22:00 Patient Own Medication 1 tab DAILY PO 10/14/24 10:00 Ceftriaxone Sodium 50 ml @ 100 mls/hr DAILY@09 IV 10/14/24 09:00 10/17/24 08:38 100 MLS/HR Pantoprazole Sodium 40 mg BID PO 10/15/24 22:00 7/5/25 08:38 40 MG objective Awake alert oriented x3 HEENT: Normocephalic, no JVD Lungs: Bilateral good air entry CVS: S1, S2 regular rate rhythm Abdomen: Soft bowel sounds present BUSINESS PERFORMANCE SPECIALIST: No focal deficits Extremities: No edema laboratory and microbiology Laboratory Tests 10/15/24 13:12 Test 10/15/24 13:12 Range/Units Serum Glucose 91 74-106 mg/dL Problem List CKD stage 4 Hypertensive renal disease History of gout Anemia in CKD Hyperlipidemia Assessment/Plan GFR is stable. No further workup required from renal standpoint. Outpatient follow up with her primary mapping pilot. Hold off on losartan and Lasix because of hypotension Physical therapy evaluation Stable for discharge from renal standpoint Dietary Evaluation Review Comments: 1) CCHO 60gm + cardiac diet 2) Refer to CDE on DC Expected Outcomes/Goals: To meet >75% estimated needs Fu 3-5 days Plan discussed with: Other MONI GUPTA MD Oct 17, 2024 10:11
[2024-10-17 13:00] VITALS: BP 97/58; PULSE 66; RESP 16; TEMP 97.8; O2SAT 97
[2024-10-17] MEDS ORDERED: DOCU-94 PO (14:05)
[2024-10-17 17:07] VITALS: BP 105/67; PULSE 65; RESP 18; TEMP 97.5; O2SAT 99
[2024-10-17] MEDS: FLEET ENEMA(ADULT) 135 ML PR ONE (17:50)
[2024-10-17 21:00] VITALS: BP 125/74; PULSE 65; RESP 19; TEMP 98.6; O2SAT 99
[2024-10-18 01:00] VITALS: BP 119/81; PULSE 68; RESP 18; TEMP 98.3; O2SAT 99
[2024-10-18 05:00] VITALS: BP 116/78; PULSE 72; RESP 18; TEMP 98.3; O2SAT 97
[2024-10-18 09:00] VITALS: BP 92/60; PULSE 69; RESP 20; TEMP 98.4; O2SAT 97
[2024-10-18 13:00] VITALS: BP 104/50; PULSE 78; RESP 20; TEMP 97.9; O2SAT 99
--- NOTE | 2024-10-18 13:45 | DVHPN2 ---
Reviewed: Care Plan, H&P, Labs, Medications, Previous Orders, Radiology Eyes: No Pain, No Vision change, No Conjunctivae inflammation, No Eyelid inflammation, No Other, No Redness ENT: No Ear pain, No Ear discharge, No Nose pain, No Nose discharge, No Nose congestion, No Mouth pain, No Mouth swelling, No Throat pain, No Throat swelling, No Other Cardiovascular: No Chest Pain, No Palpitations, No Orthopnea, No Paroxysmal Noc. Dyspnea, No Edema, No Lt Headedness, No Other Respiratory: No Cough, No Dry, No Shortness of breath, No SOB with excertion, No Wheezing, No Hemoptysis, No Pleuritic Pain, No Sputum, No Other Gastrointestinal: No Nausea, No Vomiting, No Abdominal Pain, No Diarrhea, No Constipation, No Melena, No Hematochezia, No Other Genitourinary: Dysuria, Frequency; No Incontinence, No Hematuria, No Retention, No Other Musculoskeletal: No other, No neck pain, No shoulder pain, No arm pain, No back pain, No hand pain, No leg pain, No foot pain Skin: No Rash, No Lesions, No Jaundice, No Bruising, No Other Objective Vitals Vital Signs Date Time Temp Pulse Resp B/P (MAP) Pulse Ox O2 Delivery O2 Flow Rate FiO2 10/18/24 13:00 97.9 78 20 104/50 (68) 99 97.9 10/18/24 08:00 Room Air* 0 21 Intake/Output Intake and Output 10/18/24 07:00 Intake Total 800 ml Output Total 650 ml Balance 150 ml Intake Oral 750 ml IV Total 50 ml Output Urine Total 650 ml Medications Current Medications Medications Dose Ordered Sig/Ginger Route Start Time Stop Time Status Last Admin Dose Admin Acetaminophen/ Hydrocodone Bitart 1 tab Q4HP PRN PO 10/13/24 15:45 10/16/24 18:42 1 TAB Ondansetron HCl 4 mg Q4HP PRN IV 10/13/24 15:45 Docusate Sodium 100 mg BIDPRN PRN PO 10/13/24 15:45 10/17/24 10:43 100 MG Acetaminophen 650 mg Q6HP PRN PO 10/13/24 15:45 10/16/24 04:06 650 MG Nitroglycerin 0.4 mg Q5MINP PRN SL 10/13/24 15:45 Carbamazepine 200 mg BID PO 10/13/24 22:00 10/18/24 09:00 200 MG Clonazepam 0.5 mg BIDPRN PO 10/13/24 22:00 10/18/24 09:01 0.5 MG Levothyroxine Sodium 75 mcg QAM PO 10/14/24 07:00 10/18/24 06:05 75 MCG Oxycodone HCl 10 mg BID PO 10/13/24 22:00 10/18/24 09:01 10 MG Atorvastatin Calcium 40 mg HS PO 10/13/24 22:00 10/17/24 21:17 40 MG Patient Own Medication 1 tab Q12HR PO 10/13/24 22:00 Patient Own Medication 1 tab DAILY PO 10/14/24 10:00 Ceftriaxone Sodium 50 ml @ 100 mls/hr DAILY@09 IV 10/14/24 09:00 10/18/24 09:00 100 MLS/HR Pantoprazole Sodium 40 mg BID PO 10/15/24 22:00 10/18/24 09:00 40 MG Laboratory Results Laboratory Tests 10/15/24 13:12 Urinalysis Test 10/13/24 14:44 Urine Color Colorless (Yellow) Urine Clarity Turbid (Clear) H Urine pH 5.0 (5.0-9.0) Urine Specific [place] 1.012 (1.001-1.035) Urine Protein Trace (Negative) H Urine Ketones Negative (Negative) Urine Blood 2+ /uL (Negative) H Urine Nitrite Negative (Negative) Urine Bilirubin Negative (Negative) Urine Urobilinogen Normal mg/dL (Negative) Urine Leukocyte Esterase 3+ /uL (Negative) Urine RBC 18 /hpf (0 - 4) Urine Microscopic WBC 43 /HPF (0-5) H Urine Squamous Epithelial Cells Many /hpf (<5) Urine Bacteria Few /hpf (None Seen) H Urine Glucose Normal mg/dL (Normal) Microbiology Microbiology Date/Time Source Procedure Growth Status 10/13/24 14:44 Urine - Gastelum Port Urine Culture - Final Complete Assessment/Plan Assessment/Plan BRITTNEE (acute kidney injury), Dehydration, UTI, Hypertension, Hyperlipidemia, Hypothyroidism, Plan: Continue current management Continue IV antibiotic Continue HTN meds Continue pain medication My Orders Orders - VIJAY COMBS MD Procedure Category Date Status Time * Can [place]derer CONS 10/18/24 Transmitted Consult * Can Solderer CONS 10/18/24 Transmitted Consult Discharge DISCHARGE 10/18/24 Transmitted 13:33 VIJAY COMBS MD Oct 18, 2024 13:45
[2024-10-18 17:00] VITALS: BP 109/77; PULSE 70; RESP 18; TEMP 97.9; O2SAT 98
[2024-10-18 21:00] VITALS: BP 120/75; PULSE 72; RESP 19; TEMP 98.2; O2SAT 97
[2024-10-19 01:00] VITALS: BP 127/80; PULSE 74; RESP 17; TEMP 98.1; O2SAT 97
[2024-10-19 05:00] VITALS: BP 97/60; PULSE 78; RESP 17; TEMP 98.7; O2SAT 97
[2024-10-19 09:01] VITALS: BP 128/81; PULSE 68; RESP 17; TEMP 97.8; O2SAT 96
--- NOTE | 2024-10-19 12:20 | DVHDS2 ---
Discharge Summary Date of Admission Oct 13, 2024 at 15:36 Date of Discharge: Oct 17, 2024 Labs/Diagnostic Data: Laboratory Results Test 10/15/24 13:12 10/14/24 05:21 10/13/24 14:44 10/13/24 11:34 White Blood Count 4.6 10^3/uL (4.4-10.8) Red Blood Count 2.84 10^6/uL (4.0-5.20) Hemoglobin 8.3 g/dL (12.2-16.2) Hematocrit 24.6 % (36.0-46.0) Mean Corpuscular Volume 86.7 fL (80.0-100.0) Mean Corpuscular Hemoglobin 29.3 pg (28.0-32.0) Mean Corpuscular Hemoglobin Concent 33.8 g/dL (32.0-36.0) Red Cell Distribution Width 16.4 % (11.8-14.3) Platelet Count 158 10^3/uL (140-450) Mean Platelet Volume 6.9 fL (6.9-10.8) Neutrophils (%) (Auto) % (37.0-80.0) Lymphocytes (%) (Auto) % (10.0-50.0) Monocytes (%) (Auto) % (0.0-12.0) Eosinophils (%) (Auto) % (0.0-7.0) Basophils (%) (Auto) % (0.0-2.0) Neutrophils # (Auto) 10 ^3/uL (1.6-8.6) Lymphocytes # (Auto) 10 ^3/uL (0.4-5.4) Monocytes # (Auto) 10 ^3/uL (0-1.3) Differential Total Cells Counted 100.0 (100) Neutrophils % (Manual) 47 (37.0-80.0) Band Neutrophils % (Manual) 0 Lymphocytes % (Manual) 42 (10.0-50.0) Monocytes % (Manual) 0 (0-12) Eosinophils % (Manual) 11 (0-7) Basophils % (Manual) 0 (0.0-2.0) Metamyelocytes % (manual) 0 Myelocytes % (Manual) 0 Promyelocytes % (Manual) 0 Blast Cells % (Manual) 0 Reactive Lymphocytes 0 Platelet Estimate Adequate Sodium Level 141 mmol/L (136-145) Potassium Level 3.5 mmol/L (3.5-5.1) Chloride Level 106 mmol/L (98-107) Carbon Dioxide Level 24 mmol/L (20-31) Anion Gap 11 (5-15) Blood Urea Nitrogen 87 mg/dL (9-23) Creatinine 3.02 mg/dL (0.550-1.02) Glomerular Filtration Rate Calc 16 mL/min (>90) BUN/Creatinine Ratio 28.8 (10.0-20.0) Serum Glucose 91 mg/dL (74-106) Calcium Level 9.8 mg/dL (8.7-10.4) Eosinophils # (Auto) 0.8 10 ^3/uL (0-0.8) Basophils # (Auto) 0 10 ^3/uL (0-0.2) Nucleated Red Blood Cells 0.1 % Total Bilirubin 0.3 mg/dL (0.2-1.0) Aspartate Amino Transferase (AST) 23 U/L (13-40) Alanine Aminotransferase (ALT) < 9 U/L (7-40) Alkaline Phosphatase 85 U/L (46-116) Total Protein 6.0 g/dL (5.7-8.2) Albumin 3.7 g/dL (3.2-4.8) Urine Color Colorless (Yellow) Urine Clarity Turbid (Clear) Urine pH 5.0 (5.0-9.0) Urine Specific [place] 1.012 (1.001-1.035) Urine Protein Trace (Negative) Urine Ketones Negative (Negative) Urine Blood 2+ /uL (Negative) Urine Nitrite Negative (Negative) Urine Bilirubin Negative (Negative) Urine Urobilinogen Normal mg/dL (Negative) Urine Leukocyte Esterase 3+ /uL (Negative) Urine RBC 18 /hpf (0 - 4) Urine Microscopic WBC 43 /HPF (0-5) Urine Squamous Epithelial Cells Many /hpf (<5) Urine Bacteria Few /hpf (None Seen) Urine Glucose Normal mg/dL (Normal) Troponin I High Sensitivity 24 ng/L (</=34) Other Laboratory Tests 10/15/24 13:12 Final Diagnosis/Problems List linh/ckd stage 4 Discharge Disposition: Home with Health Services Discharge Instruct/Medications Diet: Renal Activity: No Restrictions, As Tolerated Follow Up/Referral: pcp 1-2 weeks Nephrology, dr Jarvis per schedule Medications: Resume home meds Scheduled Amlodipine Besylate (Amlodipine Besylate), 1 TAB PO DAILY, (Reported) Atorvastatin Calcium (Atorvastatin Calcium), 1 TAB PO DAILY, (Reported) B-Complex W/ C & Folic Acid (Rebecca-Lilly Rx), 1 TAB PO DAILY, (Reported) Carbamazepine (Carbamazepine), 1 TAB PO BID, (Reported) Clonazepam (Clonazepam), 1 TAB PO BIDPRN, (Reported) Diclofenac Sodium (Diclofenac Sodium Ec), 1 TAB PO Q12HR, (Reported) Docusate Sodium (Colace), 1 CAP PO BID Epoetin Julito (Epogen), 1 ML SC Q30D, (Reported) Febuxostat (Febuxostat), 1 TAB PO DAILY, (Reported) Ferrous Sulfate (Ferosul), 1 TAB PO 3X/WEEK, (Reported) Fluticasone Propionate (Nasal) (Fluticasone Propionate Na), 1 SPRAY EACHNOSTRI BID, (Reported) Furosemide (Furosemide), 1 TAB PO QAM PRN, (Reported) Gabapentin (Gabapentin), 1 CAP PO TID, (Reported) Levothyroxine Sodium (Levothyroxine Sodium), 75 MCG PO QAM, (Reported) Losartan Potassium (Losartan Potassium), 0.5 TAB PO DAILY, (Reported) Montelukast Sodium (Montelukast Sodium), 1 TAB PO DAILY, (Reported) Omeprazole ([facility] Omeprazole Odt), 1 TAB PO BID, (Reported) Oxycodone Hcl (OxyCONTIN ER Tablet), 1 TAB PO BID, (Reported) Oxycodone W/ Acetaminophen (Apap/Oxycodone), 1 TAB PO Q8HR, (Reported) Pregabalin (Lyrica), 1 CAP PO Q12HR, (Reported) Venlafaxine Hydrochloride (Venlafaxine Hcl), 200 MG PO DAILY, (Reported) Discontinued Medications Docusate Sodium (Colace), 1 CAP PO BID Hydrocodone-Acetaminophen (Hydrocodone Bitartrate/AC 5-325 mg), 1 TAB PO Q6HP PRN Methylprednisolone (Medrol Dosepak), 4 MG PO UD Ondansetron (Zofran), 4 MG PO Q4HP PRN Discharge Statement: "Patient was advised to return to the ER or call 911 if any headaches, dizziness, shortness of breath, chest pain, abdominal pain, bleeding, fevers, or worsening of medical condition. Patient was counseled about treatment plan, medications, possible side effects, patientverbalized understanding. All questions were answered to the best of my ability. This discharge took greater then 30 minutes in planning, reviewing documentation, counseling the patient, and discussing with other team members." ASSESSMENT ASSESSMENT Assessment linh/ckd stage 4 VIJAY COMBS MD Oct 19, 2024 12:20
[2024-10-19 13:00] VITALS: BP 142/97; PULSE 70; RESP 18; TEMP 97.8; O2SAT 96
== END 2024-10-19 15:03 | disposition left against medical advice (07) | DRG 640 ==
LOC: ER 10:56 → OVERFLOW 15:36 → WEST WING 21:38
PROVIDERS: ADMIT Internal Medicine; ATTEND Internal Medicine
DX: E86.0 Dehydration (principal); N17.0 Acute kidney failure with tubular necrosis; I13.0 Hypertensive heart and chronic kidney disease with heart failure and stage 1 through stage 4 chronic kidney disease, or unspecified chronic kidney disease; N39.0 Urinary tract infection, site not specified; N18.4 Chronic kidney disease, stage 4 (severe); Z53.29 Procedure and treatment not carried out because of patient's decision for other reasons; E78.5 Hyperlipidemia, unspecified; E03.9 Hypothyroidism, unspecified; J45.909 Unspecified asthma, uncomplicated; D63.1 Anemia in chronic kidney disease; E11.22 Type 2 diabetes mellitus with diabetic chronic kidney disease; M10.9 Gout, unspecified; I50.9 Heart failure, unspecified; Z79.899 Other long term (current) drug therapy; Z90.710 Acquired absence of both cervix and uterus; Y84.8 Other medical procedures as the cause of abnormal reaction of the patient, or of later complication, without mention of misadventure at the time of the procedure; Y92.89 Other specified places as the place of occurrence of the external cause
CPT/HCPCS: 36415; 71045; 80048; 80053; 81001; 84484; 85007; 85025; 85027; 87086; 93005; 96361; 96365; 97110; 97116; 97163; 97530; 99291; 99292; G0378

== ENCOUNTER 2024-11-02 12:37 | Inpatient (IN) | payer OTHER ==
[~2024-11-02] VITALS: Ht 165.1 cm; Wt 89.6 kg
[~2024-11-02 12:37] MED LIST changes: -HYDR-4902 PO; -METH4PAK PO; -ONDA-144 PO
--- NOTE | 2024-11-02 13:30 | ED.PDOC ---
History of Present Illness HPI Comments Patient is a 74-year-old female with a past medical history of CKD stage IV, hypertension, hypothyroidism, congestive heart failure, anemia, gout, tremors was brought to the ED for change of Gastelum's catheter. Patient and her teacher report that she has had indwelling Gastelum's catheter since July of this year after she was discharged from the hospital where she had acute respiratory distress and had to be put on mechanical ventilatory support and on discharge was sent to post acute care facility for physical therapy rehabilitation. Patient is nonambulatory and reportedly has urinary incontinence and retention due to which she has the Gastelum's catheter. It was changed 4 weeks ago. Patient denied any abdominal pain, flank pain, fever, chills. Chief Complaint: Tube Replacement Time Seen by MD: 12:53 Primary Care Provider: UNKNOWN Reviewed Notes: Nurses Notes, Medications, Allergies Allergies: Coded Allergies: NO KNOWN ALLERGIES (Unverified , 11/11/18) Home Meds Active Scripts Docusate Sodium (Colace) 100 Mg Cap, 1 CAP PO BID, #30 CAP Prov:VIJAY COMBS MD 10/17/24 Reported Medications Febuxostat (Febuxostat) 40 Mg Tab, 1 TAB PO DAILY for 30 Days, #30 07/07/24 Diclofenac Sodium (Diclofenac Sodium Ec) 50 Mg Tab, 1 TAB PO Q12HR for 30 Days, #60 07/07/24 Epoetin Julito (Epogen) 20,000 Unit/Ml Inj, 1 ML SC Q30D for 60 Days, #2 07/07/24 Gabapentin (Gabapentin) 400 Mg Cap, 1 CAP PO TID for 40 Days, #120 07/07/24 B-Complex W/ C & Folic Acid (Rebecca-[facility]illy Rx) Tab, 1 TAB PO DAILY for 30 Days, #30 03/12/24 Fluticasone Propionate (Nasal) (Fluticasone Propionate Na) 50 Mcg/Act Spr, 1 SPRAY EACHNOSTRI BID for 30 Days, #16 03/12/24 Oxycodone W/ Acetaminophen (Apap/Oxycodone) 1 Tab Tab, 1 TAB PO Q8HR for 30 Days, #90 03/12/24 Pregabalin (Lyrica) 75 Mg Cap, 1 CAP PO Q12HR for 30 Days, #60 03/12/24 Losartan Potassium (Losartan Potassium) 50 Mg Tab, 0.5 TAB PO DAILY for 100 Days, #50 03/12/24 Furosemide (Furosemide) 40 Mg Tab, 1 TAB PO QAM PRN for 30 Days, #30 03/12/24 Ferrous Sulfate (Ferosul) 325 Mg Tab, 1 TAB PO 3X/WEEK for 84 Days, #36 03/12/24 Clonazepam (Clonazepam) 0.5 Mg Tab, 1 TAB PO BIDPRN for 88 Days, #176 03/12/24 Carbamazepine (Carbamazepine) 200 Mg Tab, 1 TAB PO BID for 90 Days, #180 03/12/24 Oxycodone Hcl (OxyCONTIN ER Tablet) 10 Mg Tb, 1 TAB PO BID, #60 TAB 03/12/24 Omeprazole ([facility] Omeprazole Odt) 20 Mg Tab, 1 TAB PO BID 08/03/22 Montelukast Sodium (MONTELUKAST SODIUM) 10 Mg Tab, 1 TAB PO DAILY for 100 Days, #100 08/03/22 Atorvastatin Calcium (ATORVASTATIN CALCIUM) 40 Mg Tab, 1 TAB PO DAILY for 90 Days, #90 06/15/18 Amlodipine Besylate (Amlodipine Besylate) 10 Mg Tab, 1 TAB PO DAILY, #30 TAB 5 Refills 06/15/18 Levothyroxine Sodium (Levothyroxine Sodium) 50 Mcg Tab, 75 MCG PO QAM for 30 Days, #30 01/25/17 Venlafaxine Hydrochloride (Venlafaxine Hcl) 75 Mg Tab, 200 MG PO DAILY, TAB 01/25/17 Past Medical History PAST MEDICAL HISTORY: Asthma, CHF, DM, High Lipids, HTN Surgical History: Hysterectomy 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 History Family History Family History: Unknown Social History Smoker: Non-Smoker Alcohol: Denies ETOH Use Drugs: Denies Drug Use Lives In: Home Constitutional: reports: malaise, weakness EENTM: denies: blurred vision, double vision, ear bleeding, ear discharge, ear drainage, ear pain, ear ringing, eye pain, eye redness, hearing loss, mouth pain, mouth swelling, nasal discharge, nose bleeding, nose congestion, nose pain, photophobia, tearing, throat pain, throat swelling, voice changes, others Respiratory: denies: cough, hemoptysis, orthopnea, SOB at rest, shortness of breath, SOB with excertion, stridor, wheezing, others Cardiovascular: denies: chest pain, dizzy spells, diaphoresis, Dyspnea on exertion, edema, irregular heart beat, left arm pain, lightheadedness, pal pitations, PND, syncope, others Gastrointestinal: denies: abdomen distended, abdominal pain, blood streaked bowels, constipated, diarrhea, dysphagia, difficulty swallowing, hematemesis, melena, nausea, poor appetite, poor fluid intake, rectal bleeding, rectal pain, vomiting, others Neurological: reports: paresthesia, tremors, weakness Musculoskeletal: denies: back pain, gout, joint pain, joint swelling, muscle pain, muscle stiffness, neck pain, others Integumetry: denies: bruises, change in color, change in hair/nails, dryness, laceration, lesions, lumps, rash, wounds, others Allergic/Immunocompromised: denies: Difficulty Healing, Frequent Infections, Hives, Itching, others Hematologic/Lymphatic: denies: anemia, blood clots, easy bleeding, easy bruising, swollen glands, others Endocrine: denies: excessive hunger, excessive sweating, excessive thirst, excessive urination, flushing, intolerance to cold, intolerance to heat, unexplained weight gain, unexplained weight loss, others Psychiatric: denies: anxiety, bipolar disorder, depression, hopeless, panic disorder, schizophrenia, sleepless, suicidal, others Physical Exam General Appearance: Normal HEENT: PERRL/EOMI, Pharynx Normal Neck: Full Range of Motion, Non-Tender, Normal Inspection Respiratory: No Accessory Muscle Use, No Respiratory Distress, Normal Breath Sounds Cardiovascular: No Edema, No JVD, No Murmur, Regular Rate/Rhythm Breast Exam: Deferred Gastrointestinal: No Organomegaly, Non Tender, Normal Bowel Sounds Genitalia: Deferred Pelvic: Deferred Rectal: Deferred Extremities: No pedal edema Neurologic: Alert, career development director II-XII nml as Tested, Motor Weakness (Bilateral lower extremity weakness) Cerebellar Function: NOT DONE Reflexes: NOT DONE Skin: Dry, Normal Color Peripheral Pulses: 2+ dorsalis pedis (R), 2+ dorsalis pedis (L), 2+ Radial (R), 2+ Radial (L) Lymphatic: NOT DONE Was a procedure done? Was a procedure done?: No Differential Dx Considerations may include: Indwelling Gastelum's catheter, urinary retention, UTI X-Ray, Labs, Meds, VS Vital Signs Date Time Temp Pulse Resp B/P (MAP) Pulse Ox O2 Delivery O2 Flow Rate FiO2 11/02/24 15:54 97.6 84 17 138/90 (106) 98 97.6 11/02/24 13:05 97.5 85 16 151/104 (120) 98 97.5 Lab Test 11/02/24 15:47 11/02/24 13:42 Range/Units Urine Color Brown H Yellow Urine Clarity Ex.turbid Clear Urine pH 7.0 5.0-9.0 Urine Specific [place] 1.005 1.001-1.035 Urine Protein 1+ H Negative Urine Ketones Negative Negative Urine Blood 2+ H Negative /uL Urine Nitrite Negative Negative Urine Bilirubin Negative Negative Urine Urobilinogen Normal Negative mg/dL Urine Leukocyte Esterase 3+ Negative /uL Urine RBC 96 0 - 4 /hpf Urine WBC Clumps Present None Seen /hpf Urine Microscopic WBC 1794 H 0-5 /HPF Urine Squamous Epithelial Cells Few <5 /hpf Urine Bacteria Many H None Seen /hpf Urine Mucus Few None Seen Urine Glucose Normal Normal mg/dL White Blood Count 4.9 4.4-10.8 10^3/uL Red Blood Count 3.76 L 4.0-5.20 10^6/uL Hemoglobin 10.9 L 12.2-16.2 g/dL Hematocrit 32.8 L 36.0-46.0 % Mean Corpuscular Volume 87.3 80.0-100.0 fL Mean Corpuscular Hemoglobin 29.0 28.0-32.0 pg Mean Corpuscular Hemoglobin Concent 33.3 32.0-36.0 g/dL Red Cell Distribution Width 17.9 H 11.8-14.3 % Platelet Count 206 140-450 10^3/uL Mean Platelet Volume 6.9 6.9-10.8 fL Neutrophils (%) (Auto) 37.0-80.0 % Lymphocytes (%) (Auto) 10.0-50.0 % Monocytes (%) (Auto) 0.0-12.0 % Basophils (%) (Auto) 0.0-2.0 % Neutrophils # (Auto) 1.6-8.6 10 ^3/uL Lymphocytes # (Auto) 0.4-5.4 10 ^3/uL Monocytes # (Auto) 0-1.3 10 ^3/uL Differential Total Cells Counted 100.0 100 Neutrophils % (Manual) 69 37.0-80.0 Band Neutrophils % (Manual) 0 Lymphocytes % (Manual) 23 10.0-50.0 Monocytes % (Manual) 5 0-12 Eosinophils % (Manual) 3 0-7 Basophils % (Manual) 0 0.0-2.0 Metamyelocytes % (manual) 0 Myelocytes % (Manual) 0 Promyelocytes % (Manual) 0 Blast Cells % (Manual) 0 Reactive Lymphocytes 0 Platelet Estimate Adequate Sodium Level 138 136-145 mmol/L Potassium Level 4.0 3.5-5.1 mmol/L Chloride Level 105 98-107 mmol/L Carbon Dioxide Level 22 20-31 mmol/L Anion Gap 11 5-15 Blood Urea Nitrogen 21 9-23 mg/dL Creatinine 1.83 H 0.550-1.02 mg/dL Glomerular Filtration Rate Calc 29 >90 mL/min BUN/Creatinine Ratio 11.5 10.0-20.0 Serum Glucose 95 74-106 mg/dL Calcium Level 10.4 8.7-10.4 mg/dL 74-year-old female with a medical history of hypertension, hypothyroidism, anemia out, tremors, CKD stage 4, urinary retention with indwelling Gastelum's catheter was brought to the ED for routine Gastelum's catheter change at 4 weeks. On examination patient was found to have turbid urine and urinalysis revealed increased WBC with WBC clumps. Given the patient's medical history and chronic indwelling Gastelum's catheter urine bacteria culture as well as blood culture ordered. IV fluids and IV antibiotics were given. Patient will need further inpatient management for management of urinary tract infection, and the patient and the teacher agrees with the plan Time of 1ST Reevaluation: 15:23 Reevaluation 1ST: Unchanged Patient Education/Counseling: Diagnosis, Treatment Family Education/Counseling: Diagnosis, Treatment SEPSIS Sepsis Screen Physician Orders Urine Bacterial Culture (11/02/24 15:59) Blood Culture (11/02/24 15:59) Lactic Acid W/ Reflex Order (11/02/24 15:59) Vital Signs Date Time Temp Pulse Resp B/P (MAP) Pulse Ox O2 Delivery O2 Flow Rate FiO2 11/02/24 15:54 97.6 84 17 138/90 (106) 98 97.6 11/02/24 13:05 97.5 85 16 151/104 (120) 98 97.5 Laboratory Tests Test 11/02/24 13:42 White Blood Count 4.9 10^3/uL (4.4-10.8) Departure 1 Departure Time of Disposition: 16:10 Impression: Primary Impression: UTI (urinary tract infection) Additional Impressions: Acute kidney injury superimposed on CKD Chronic indwelling Gastelum catheter Disposition: ADMITTED INPATIENT Condition: Stable Critical Care Note Critical Care Time?: No Stability Stability form required: No Heart Score Heart Score: Heart Score Response (Comments) Value History N/A 0 EKG N/A 0 Age N/A 0 Risk Factors N/A 0 Troponin N/A 0 Total 0 CATHLEEN ELIZABETH RESIDENT Nov 02, 2024 13:30
[2024-11-02 14:14] LABS: Anion Gap 11 (5-15); Carbon Dioxide 22 mmol/L (20-31); Chloride 105 mmol/L (98-107); Potassium 4.0 mmol/L (3.5-5.1); Sodium 138 mmol/L (136-145)
[2024-11-02 14:20] LABS: BUN/Creatinine Ratio 11.5 (10.0-20.0); Blood Urea Nitrogen 21 mg/dL (9-23); Calcium 10.4 mg/dL (8.7-10.4); Glucose 95 mg/dL (74-106)
[2024-11-02 14:26] LABS: Hematocrit 32.8 % (36.0-46.0); Hemoglobin 10.9 g/dL (12.2-16.2); Mean Corpuscular Hemoglobin 29.0 pg (28.0-32.0); Mean Corpuscular Volume 87.3 fL (80.0-100.0)
[2024-11-02 14:50] LABS: Total Cells Counted 100.0 (100)
[2024-11-02 15:55] LABS: Urine Protein, UAD 1+ (Negative); Urine WBC Clumps PRESENT /hpf (None Seen)
[2024-11-02] MEDS ORDERED: ACETAMINOPHEN 325 MG TAB PO PRN (16:45)
[2024-11-02] MEDS ORDERED: hydrALAZINE HCL 20 MG/ML VL IV PRN (16:45)
[2024-11-02] MEDS ORDERED: DEXTROSE (50%) 50ML SYRG IV PRN (16:45)
[2024-11-02] MEDS: SODIUM CHLORIDE 0.9% 1,000 ML IV SCH (16:45)
[2024-11-02] MEDS: InsuLIN REG 1unit/0.01ml Soln (100units/ml) SC SCH (17:00)
[2024-11-02] MEDS: ACCU-CHEK COMFORT CURVE STRIP VI SCH (17:00)
[2024-11-02] MEDS: SODIUM CHLORIDE 0.9% 500 ML IV ONE (17:33)
[2024-11-02] MEDS: PIPERACILLIN-TAZOB 3.375GM 100 ML IV ONE (17:34)
--- NOTE | 2024-11-02 17:36 | DVHHP2 ---
History of Present Illness Reason for Visit: UTI (urinary tract infection) History of Present Illness The patient is a 74-year-old female bed-bound with past medical history of asthma, CHF, diabetes mellitus, hypertension, hypothyroidism, and hyperlipidemia who presented to [facility] ED for evaluation of Gastelum catheter due for change. 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 Patient was seen and evaluated in the ED, laboratory data shows WBC 4.9, hemoglobin 10.9, hematocrit 32.8, platelets 206, sodium 138, potassium 4.0, BUN 21, creatinine 1.83, glucose 95, calcium 10.4, blood pressure 130/90, heart rate 84, temperature 97.6 F, O2 saturation 98% on room air. Urinalysis positive for urinary tract infection. Patient was started on IV antibiotic regimen Rocephin, please see medication orders section in the computer. On my assessment, patient denied chest pain, no headache, no dizziness, no diaphoresis, no shortness of breaths, no nausea, no vomiting, no fever, no chills. patient was admitted for further evaluation and medical management. Past Medical History Asthma, CHF, DM, High Lipids, HTN, Hypothyroidism Past Surgical History Hysterectomy Family History Reviewed, noncontributory to the management of this case. Past Social History The patient lives at home, denies smoking, alcohol or illicit drugs abuse. Review of Systems Constitutional: Yes: Weakness, Other (Malaise); No: Fever, Chills, Sweats, Malaise Eyes: No: Pain, Vision change, Conjunctivae inflammation, Eyelid inflammation, Other, Redness ENT: No: Ear pain, Ear discharge, Nose pain, Nose discharge, Nose congestion, Mouth pain, Mouth swelling, Throat pain, Throat swelling, Other Respiratory: No: Cough, Dry, Shortness of breath, SOB with excertion, Wheezing, Hemoptysis, Pleuritic Pain, Sputum, Wheezing, Other Cardiovascular: No: Chest Pain, Palpitations, Orthopnea, Paroxysmal Noc. Dyspnea, Edema, Lt Headedness, Other Gastrointestinal: No: Nausea, Vomiting, Abdominal Pain, Diarrhea, Constipation, Melena, Hematochezia, Other Genitourinary: No Dysuria, No Frequency, No Incontinence, No Hematuria; Retention, Other (Gastelum catheter in place) Musculoskeletal: No: other, neck pain, shoulder pain, arm pain, back pain, hand pain, leg pain, foot pain Skin: No: Rash, Lesions, Jaundice, Bruising, Other Neurological: Other (paresthesia, tremors.); No: Weakness, Numbness, Incoordination, Change in speech, Confusion, Seizures Allergies: Coded Allergies: NO KNOWN ALLERGIES (Unverified , 11/11/18) Medications Current Medications Medications Dose Ordered Sig/Ginger Route Start Time Stop Time Status Last Admin Dose Admin Aspirin 81 mg DAILY PO 11/03/24 10:00 Atorvastatin Calcium 20 mg HS PO 11/02/24 22:00 Multivit/Ca Carb/ B Cmplx/FA/Prenat 1 tab DAILY PO 11/03/24 10:00 Famotidine 20 mg DAILY IV 11/03/24 10:00 Amlodipine Besylate 10 mg DAILY PO 11/03/24 10:00 Hydralazine HCl 10 mg Q6HP PRN IV 11/02/24 16:45 Diagnostic Test (Pha) 1 strip ACHS 11/02/24 17:00 11/02/24 17:00 1 STRIP Insulin Human Regular ACHS SC 11/02/24 17:00 Dextrose 50 ml UD PRN IV 11/02/24 16:45 Sodium Chloride 1,000 ml @ 60 mls/hr [id number] IV 11/02/24 16:45 Acetaminophen/ Hydrocodone Bitart 1 tab Q4HP PRN PO 11/02/24 16:45 Ondansetron HCl 4 mg Q4HP PRN IV 11/02/24 16:45 Docusate Sodium 100 mg BIDPRN PRN PO 11/02/24 16:45 Acetaminophen 650 mg Q6HP PRN PO 11/02/24 16:45 Piperacillin Sod/ Tazobactam Sod 100 ml @ 25 mls/hr Q12H IV 11/03/24 05:00 Exam Vital Signs Vital Signs Date Time Temp Pulse Resp B/P (MAP) Pulse Ox O2 Delivery O2 Flow Rate FiO2 11/02/24 15:54 97.6 84 17 138/90 (106) 98 97.6 General Appearance: Alert, Oriented X3, Cooperative, No acute distress HEENT: Atraumatic, PERRLA, EOMI, Mucous membr. moist/pink Respiratory: Clear to auscultation, Normal air movement Cardiovascular: Regular rate, Normal S1, Normal S2, No murmurs Abdominal: Normal bowel sounds, Soft, No tenderness, No hepatospenomegaly, No masses Extremities: No clubbing, No cyanosis, No edema, Normal pulses, No tendernes s/swelling, Other (Lower extremity weakness.) Skin: No rashes, No significant lesion Neuro: Normal speech, Normal tone, Sensation intact, Cranial nerves 3-12 NL, Reflexes 2+, Other (Generalized weakness) Psych/Mental Status: Mental status NL, Mood NL (Lower extremity weakness) Labs/Xrays Labs Test 11/02/24 16:40 11/02/24 15:47 11/02/24 13:42 Range/Units Lactic Acid Level 1.6 0.4-2.0 mmol/L Urine Color Brown H Yellow Urine Clarity Ex.turbid Clear Urine pH 7.0 5.0-9.0 Urine Specific [place] 1.005 1.001-1.035 Urine Protein 1+ H Negative Urine Ketones Negative Negative Urine Blood 2+ H Negative /uL Urine Nitrite Negative Negative Urine Bilirubin Negative Negative Urine Urobilinogen Normal Negative mg/dL Urine Leukocyte Esterase 3+ Negative /uL Urine RBC 96 0 - 4 /hpf Urine WBC Clumps Present None Seen /hpf Urine Microscopic WBC 1794 H 0-5 /HPF Urine Squamous Epithelial Cells Few <5 /hpf Urine Bacteria Many H None Seen /hpf Urine Mucus Few None Seen Urine Glucose Normal Normal mg/dL White Blood Count 4.9 4.4-10.8 10^3/uL Red Blood Count 3.76 L 4.0-5.20 10^6/uL Hemoglobin 10.9 L 12.2-16.2 g/dL Hematocrit 32.8 L 36.0-46.0 % Mean Corpuscular Volume 87.3 80.0-100.0 fL Mean Corpuscular Hemoglobin 29.0 28.0-32.0 pg Mean Corpuscular Hemoglobin Concent 33.3 32.0-36.0 g/dL Red Cell Distribution Width 17.9 H 11.8-14.3 % Platelet Count 206 140-450 10^3/uL Mean Platelet Volume 6.9 6.9-10.8 fL Neutrophils (%) (Auto) 37.0-80.0 % Lymphocytes (%) (Auto) 10.0-50.0 % Monocytes (%) (Auto) 0.0-12.0 % Basophils (%) (Auto) 0.0-2.0 % Neutrophils # (Auto) 1.6-8.6 10 ^3/uL Lymphocytes # (Auto) 0.4-5.4 10 ^3/uL Monocytes # (Auto) 0-1.3 10 ^3/uL Differential Total Cells Counted 100.0 100 Neutrophils % (Manual) 69 37.0-80.0 Band Neutrophils % (Manual) 0 Lymphocytes % (Manual) 23 10.0-50.0 Monocytes % (Manual) 5 0-12 Eosinophils % (Manual) 3 0-7 Basophils % (Manual) 0 0.0-2.0 Metamyelocytes % (manual) 0 Myelocytes % (Manual) 0 Promyelocytes % (Manual) 0 Blast Cells % (Manual) 0 Reactive Lymphocytes 0 Platelet Estimate Adequate Sodium Level 138 136-145 mmol/L Potassium Level 4.0 3.5-5.1 mmol/L Chloride Level 105 98-107 mmol/L Carbon Dioxide Level 22 20-31 mmol/L Anion Gap 11 5-15 Blood Urea Nitrogen 21 9-23 mg/dL Creatinine 1.83 H 0.550-1.02 mg/dL Glomerular Filtration Rate Calc 29 >90 mL/min BUN/Creatinine Ratio 11.5 10.0-20.0 Serum Glucose 95 74-106 mg/dL Calcium Level 10.4 8.7-10.4 mg/dL B-Type Natriuretic Peptide 35.04 0-100 pg/mL SEPSIS Sepsis Screen Date sepsis recognized/suspect: Nov 02, 2024 Time Sepsis recognized/suspect: 1344 Recent Procedure: No On Antibiotic Therapy: No Respiratory Rate >20: No Heart Rate >90: No Temp<36 C (96.8 F) or >38.3 C: No SBP <90 or MAP <65 mmHG: No New Acute Mental Status Change: No Is the patient on CPAP, BIPAP,: No Physician Orders Urine Bacterial Culture (11/02/24 15:59) Blood Culture (11/02/24 15:59) Ok To Change Gastelum (11/02/24 16:04) Consistent Carb([facility])Diabetes (11/02/24 Dinner) Aspirin Tablet (11/03/24 10:00) Atorvastatin (Lipitor) (11/02/24 22:00) B-Complex W/ C & Folic Tablet (Nephro-Vi (11/03/24 10:00) Famotidine Injection (Pepcid Injection) (11/03/24 10:00) Amlodipine Tablet (Norvasc Tablet) (11/03/24 10:00) Hydralazine Injection (Apresoline Inject (11/02/24 16:45) Glucose Blood (Accu-Chek Comfort Curve T (11/02/24 17:00) Insulin R (Human) (Insulin R) (11/02/24 17:00) Dextrose 50% Syringe (11/02/24 16:45) Allergies (11/02/24 16:39) Code Status (11/02/24 16:39) Sodium Chloride 0.9% (11/02/24 16:45) Oxygen Per Hour (11/02/24 16:39) Hydrocodone-Acet 5/325mg Tab ([place] 5/32 (11/02/24 16:45) Ondansetron Hcl (Zofran) (11/02/24 16:45) Docusate Sodium Capsule (Colace Capsule) (11/02/24 16:45) Complete Blood Count (11/03/24 04:00) Comprehensive Metabolic Panel (11/03/24 04:00) Condition: Serious (11/02/24 16:39) Acetaminophen Tablet (Tylenol Tablet) (11/02/24 16:45) Bedrest With Bathroom Privileg (11/02/24 16:39) Sequential Compression Device (11/02/24 ) Piperacillin-Tazob 3.375gm (Zosyn 3.375g (11/03/24 05:00) Vital Signs Date Time Temp Pulse Resp B/P (MAP) Pulse Ox O2 Delivery O2 Flow Rate FiO2 11/02/24 15:54 97.6 84 17 138/90 (106) 98 97.6 11/02/24 13:05 97.5 85 16 151/104 (120) 98 97.5 Laboratory Tests Test 11/02/24 13:42 11/02/24 16:40 White Blood Count 4.9 10^3/uL (4.4-10.8) Lactic Acid Level 1.6 mmol/L (0.4-2.0) Medications Medications Dose Ordered Sig/Ginger Route Start Time Stop Time Status Last Admin Dose Admin Diagnostic Test (Pha) 1 strip ACHS 11/02/24 17:00 11/02/24 17:00 1 STRIP Piperacillin Sod/ Tazobactam Sod 100 ml @ 100 mls/hr ONCE ONCE IV 11/02/24 16:15 11/02/24 17:14 DC 11/02/24 17:34 100 MLS/HR Sodium Chloride 500 ml @ 500 mls/hr Q1H ONCE IV 11/02/24 16:15 11/02/24 17:14 DC 11/02/24 17:33 500 MLS/HR Assessment/Plan Assessment/Plan UTI (urinary tract infection) Chronic indwelling Gastelum catheter Acute kidney injury superimposed on CKD Generalized weakness Plan 1. Admit to med surge unit 2. Breathing treatment 3. Pain control management 4. IV antibiotic management 5. Management of fluids and electrolytes 6. Consultation for hospitalist 7. Diagnostic test chest x-ray 8. DVT prophylaxis on SCDs 9. Repeat labs CBC, CMP in a.m. 10. Home medication reviewed and reconciled 11. Continue with current medical management 12. Treatment plan discussed with patient and RN. Patient verbalized understanding. Plan discussed with: Patient, Other (RN) My Orders Orders - JOY GUADARRAMA DNP Procedure Category Date Status Time Consistent DIET 11/02/24 Transmitted Carb(Ccho)Diabetes Dinner Aspirin Tablet PHA 11/03/24 In Process 10:00 Atorvastatin (Lipitor) PHA 11/02/24 In Process 22:00 B-Complex W/ C & PHA 11/03/24 In Process Folic Tablet 10:00 Famotidine Injection PHA 11/03/24 In Process (Pepcid Injection) 10:00 Amlodipine Tablet PHA 11/03/24 In Process (Norvasc Tablet) 10:00 Hydralazine Injection PHA 11/02/24 In Process (Apresoline Inject 16:45 Glucose Blood PHA 11/02/24 In Process (Accu-Chek Comfort 17:00 Insulin R (Human) PHA 11/02/24 In Process (Insulin R) 17:00 Dextrose 50% Syringe PHA 11/02/24 In Process 16:45 Allergies RADHAMES 11/02/24 In Process 16:39 Code Status CODE 11/02/24 Transmitted 16:39 Sodium Chloride 0.9% PHA 11/02/24 In Process 16:45 Oxygen Per Hour RT 11/02/24 Transmitted 16:39 Hydrocodone-Acet PHA 11/02/24 In Process 5/325mg Tab ([place] 16:45 Ondansetron Hcl PHA 11/02/24 In Process (Zofran) 16:45 Docusate Sodium PHA 11/02/24 In Process Capsule (Colace 16:45 Complete Blood Count LAB 11/03/24 Verified 04:00 Comprehensive LAB 11/03/24 Verified Metabolic Panel 04:00 Condition: Serious RADHAMES 11/02/24 In Process 16:39 Acetaminophen Tablet PHA 11/02/24 In Process (Tylenol Tablet) 16:45 Bedrest With Bathroom RADHAMES 11/02/24 In Process Privileg 16:39 Sequential RADHAMES 11/02/24 In Process Compression Device Piperacillin-Tazob PHA 11/03/24 In Process 3.375gm (Zosyn 3.375g 05:00 Problem List: (1) UTI (urinary tract infection) (2) Chronic indwelling Gastelum catheter (3) Acute kidney injury superimposed on CKD (4) Generalized weakness Date of Service: Nov 02, 2024 Billing Provider: JOY GUADARRAMA DNP Common Visit Codes: [id number] INP/OBS CARE (HIGH) JOY GUADARRAMA DNP Nov 02, 2024 17:36
[2024-11-02] MEDS ORDERED: MORPHINE SULFATE INJ 2 MG/ml SYRG IV PRN (17:45)
[2024-11-02] MEDS ORDERED: NITROGLYCERIN 0.4 MG SL TAB SL PRN (17:45)
[2024-11-02] MEDS ORDERED: PIPERACILLIN-TAZOB 3.375GM 100 ML IV SCH (22:00)
[2024-11-02 22:01] VITALS: BP 136/78; PULSE 79; RESP 18; TEMP 97.4; O2SAT 91
[2024-11-02] MEDS: ATORVASTATIN 20 MG TAB PO SCH (22:21)
[2024-11-02] MEDS: ONDANSETRON HCL 4 MG/2 ML VIAL IV PRN (22:21)
[2024-11-02] MEDS: HYDROcodone-ACET 5/325MG TAB PO PRN (22:22)
[2024-11-02] MEDS: DOCUSATE SOD 100 MG CAP PO PRN (22:44)
[2024-11-02 23:19] VITALS: PULSE 79; RESP 18
[2024-11-02 23:23] VITALS: BP 136/78; PULSE 79; RESP 18; TEMP 97.4; O2SAT 91
[2024-11-03] VITALS (7 sets, daily range): BP systolic 114–125; BP diastolic 71–79; PULSE 65–74; RESP 18–20; TEMP 97.2–97.8; O2SAT 94–99
[2024-11-03] MEDS: PIPERACILLIN-TAZOB 3.375GM 100 ML IV SCH (05:02)
[2024-11-03] MEDS: LEVOTHYROXINE SODIUM 50 MCG TAB PO SCH (05:03)
[2024-11-03 06:22] LABS: Hematocrit 26.7 % (36.0-46.0); Hemoglobin 9.1 g/dL (12.2-16.2); Mean Corpuscular Hemoglobin 29.3 pg (28.0-32.0); Mean Corpuscular Volume 85.7 fL (80.0-100.0)
[2024-11-03 06:47] LABS: Alanine Aminotransferase 11 U/L (7-40); Alkaline Phosphatase 77 U/L (46-116); Anion Gap 11 (5-15); BUN/Creatinine Ratio 12.7 (10.0-20.0); Calcium 9.4 mg/dL (8.7-10.4); Carbon Dioxide 22 mmol/L (20-31); Chloride 107 mmol/L (98-107); Glucose 93 mg/dL (74-106); Potassium 3.8 mmol/L (3.5-5.1); Sodium 140 mmol/L (136-145); Total Protein 5.7 g/dL (5.7-8.2)
[2024-11-03 06:48] LABS: Albumin 3.7 g/dL (3.2-4.8); Bilirubin, Total 0.4 mg/dL (0.2-1.0)
[2024-11-03 06:51] LABS: Blood Urea Nitrogen 25 mg/dL (9-23)
[2024-11-03 09:02] LABS: Total Cells Counted 100.0 (100)
[2024-11-03] MEDS: B-COMPLEX W/ C & FOLIC ACID(NEPHROVITE TAB) PO SCH (09:55)
[2024-11-03] MEDS: FAMOTIDINE (10MG/ML) 2ML VL IV SCH (09:55)
--- NOTE | 2024-11-03 19:03 | DVHPN2 ---
Subjective Seen in bed and feeling better Reviewed: H&P, Labs Changes from previous H/P or p: No Changes Eyes: No Pain, No Vision change, No Conjunctivae inflammation, No Eyelid inflammation, No Other, No Redness ENT: No Ear pain, No Ear discharge, No Nose pain, No Nose discharge, No Nose congestion, No Mouth pain, No Mouth swelling, No Throat pain, No Throat swelling, No Other Cardiovascular: No Chest Pain, No Palpitations, No Orthopnea, No Paroxysmal Noc. Dyspnea, No Edema, No Lt Headedness, No Other Respiratory: No Cough, No Dry, No Shortness of breath, No SOB with excertion, No Wheezing, No Hemoptysis, No Pleuritic Pain, No Sputum, No Other Gastrointestinal: No Nausea, No Vomiting, No Abdominal Pain, No Diarrhea, No Constipation, No Melena, No Hematochezia, No Other Genitourinary: No Dysuria, No Frequency, No Incontinence, No Hematuria; R etention, Other (Gastelum catheter in place) Musculoskeletal: No other, No neck pain, No shoulder pain, No arm pain, No back pain, No hand pain, No leg pain, No foot pain Skin: No Rash, No Lesions, No Jaundice, No Bruising, No Other Objective Vitals Vital Signs Date Time Temp Pulse Resp B/P (MAP) Pulse Ox O2 Delivery O2 Flow Rate FiO2 11/03/24 16:57 97.8 70 20 125/79 (94) 94 97.8 11/03/24 08:00 Room Air* 0 21 Intake/Output Intake and Output 11/03/24 07:00 Intake Total 800 ml Output Total 450 ml Balance 350 ml Intake Oral 200 ml IV Total 600 ml Output Urine Total 450 ml General Appearance: Alert, Oriented X3 HEENT: Atraumatic Lungs: Clear to auscultation Cardiovascular: Regular rate, Normal S1, Normal S2 Abdomen: Normal bowel sounds Medications Current Medications Medications Dose Ordered Sig/Gniger Route Start Time Stop Time Status Last Admin Dose Admin Aspirin 81 mg DAILY PO 11/03/24 10:00 Atorvastatin Calcium 20 mg HS PO 11/02/24 22:00 11/02/24 22:21 20 MG Multivit/Ca Carb/ B Cmplx/FA/Prenat 1 tab DAILY PO 11/03/24 10:00 11/03/24 09:55 1 TAB Famotidine 20 mg DAILY IV 11/03/24 10:00 11/03/24 09:55 20 MG Amlodipine Besylate 10 mg DAILY PO 11/03/24 10:00 11/03/24 09:55 10 MG Hydralazine HCl 10 mg Q6HP PRN IV 11/02/24 16:45 Diagnostic Test (Pha) 1 strip ACHS 11/02/24 17:00 11/03/24 11:42 1 STRIP Insulin Human Regular ACHS SC 11/02/24 17:00 Dextrose 50 ml UD PRN IV 11/02/24 16:45 Sodium Chloride 1,000 ml @ 60 mls/hr [id number] IV 11/02/24 16:45 11/03/24 14:10 60 MLS/HR Acetaminophen/ Hydrocodone Bitart 1 tab Q4HP PRN PO 11/02/24 16:45 11/03/24 05:04 1 TAB Ondansetron HCl 4 mg Q4HP PRN IV 11/02/24 16:45 11/02/24 22:21 4 MG Docusate Sodium 100 mg BIDPRN PRN PO 11/02/24 16:45 11/03/24 10:05 100 MG Acetaminophen 650 mg Q6HP PRN PO 11/02/24 16:45 Piperacillin Sod/ Tazobactam Sod 100 ml @ 25 mls/hr Q12H IV 11/03/24 05:00 11/03/24 05:02 25 MLS/HR Nitroglycerin 0.4 mg Q5MINP PRN SL 11/02/24 17:45 Morphine Sulfate 2 mg Q30M PRN IV 11/02/24 17:45 Levothyroxine Sodium 50 mcg QAM@0600 PO 11/03/24 06:00 11/03/24 05:03 50 MCG Laboratory Results Laboratory Tests 11/03/24 05:54 Chemistry Test 11/03/24 05:54 Albumin 3.7 g/dL (3.2-4.8) Calcium Level 9.4 mg/dL (8.7-10.4) Total Protein 5.7 g/dL (5.7-8.2) LFT Test 11/03/24 05:54 Alanine Aminotransferase (ALT) 11 U/L (7-40) Alkaline Phosphatase 77 U/L (46-116) Aspartate Amino Transferase (AST) 16 U/L (13-40) Total Bilirubin 0.4 mg/dL (0.2-1.0) Urinalysis Test 11/02/24 15:47 Urine Color Brown (Yellow) H Urine Clarity Ex.turbid (Clear) Urine pH 7.0 (5.0-9.0) Urine Specific [place] 1.005 (1.001-1.035) Urine Protein 1+ (Negative) H Urine Ketones Negative (Negative) Urine Blood 2+ /uL (Negative) H Urine Nitrite Negative (Negative) Urine Bilirubin Negative (Negative) Urine Urobilinogen Normal mg/dL (Negative) Urine Leukocyte Esterase 3+ /uL (Negative) Urine RBC 96 /hpf (0 - 4) Urine WBC Clumps Present /hpf (None Seen) Urine Microscopic WBC 1794 /HPF (0-5) H Urine Squamous Epithelial Cells Few /hpf (<5) Urine Bacteria Many /hpf (None Seen) H Urine Mucus Few (None Seen) Urine Glucose Normal mg/dL (Normal) Microbiology Microbiology Date/Time Source Procedure Growth Status 11/03/24 07:20 Nose MRSA Screen - Final Complete 11/02/24 16:40 Blood Blood Culture - Preliminary NO GROWTH AFTER 24 HOURS OF INCUBATION. Resulted 11/02/24 15:47 Urine - Gastelum Port Urine Culture - Preliminary Resulted Assessment/Plan Assessment/Plan UTI (urinary tract infection) Chronic indwelling Gastelum catheter Acute kidney injury superimposed on CKD Generalized weakness Continue IV abx IVF Monitor creatinine Plan discussed with: Patient Date of Service: Nov 03, 2024 Billing Provider: BEV DONAHUE MD Common Visit Codes: [id number] INP/OBS CARE(HIGH) BEV DONAHUE MD Nov 03, 2024 19:03
[2024-11-04] VITALS (7 sets, daily range): BP systolic 115–143; BP diastolic 77–91; PULSE 61–75; RESP 16–19; TEMP 97.5–98.4; O2SAT 96–98
[2024-11-04 12:10] LABS: Chloride 107 mmol/L (98-107); Potassium 3.9 mmol/L (3.5-5.1); Sodium 140 mmol/L (136-145)
[2024-11-04 12:11] LABS: Anion Gap 11 (5-15); Carbon Dioxide 22 mmol/L (20-31)
[2024-11-04 12:12] LABS: Calcium 9.2 mg/dL (8.7-10.4)
[2024-11-04 12:16] LABS: BUN/Creatinine Ratio 13.1 (10.0-20.0); Glucose 93 mg/dL (74-106); Hematocrit 27.1 % (36.0-46.0); Hemoglobin 9.0 g/dL (12.2-16.2); Mean Corpuscular Hemoglobin 29.8 pg (28.0-32.0); Mean Corpuscular Volume 89.8 fL (80.0-100.0)
[2024-11-04 12:17] LABS: Blood Urea Nitrogen 24 mg/dL (9-23)
--- NOTE | 2024-11-04 12:45 | DVHPN2 ---
Subjective Seen in bed and feeling better Reviewed: H&P, Labs Changes from previous H/P or p: No Changes Eyes: No Pain, No Vision change, No Conjunctivae inflammation, No Eyelid inflammation, No Other, No Redness ENT: No Ear pain, No Ear discharge, No Nose pain, No Nose discharge, No Nose congestion, No Mouth pain, No Mouth swelling, No Throat pain, No Throat swelling, No Other Cardiovascular: No Chest Pain, No Palpitations, No Orthopnea, No Paroxysmal Noc. Dyspnea, No Edema, No Lt Headedness, No Other Respiratory: No Cough, No Dry, No Shortness of breath, No SOB with excertion, No Wheezing, No Hemoptysis, No Pleuritic Pain, No Sputum, No Other Gastrointestinal: No Nausea, No Vomiting, No Abdominal Pain, No Diarrhea, No Constipation, No Melena, No Hematochezia, No Other Genitourinary: No Dysuria, No Frequency, No Incontinence, No Hematuria; R etention, Other (Gastelum catheter in place) Musculoskeletal: No other, No neck pain, No shoulder pain, No arm pain, No back pain, No hand pain, No leg pain, No foot pain Skin: No Rash, No Lesions, No Jaundice, No Bruising, No Other Objective Vitals Vital Signs Date Time Temp Pulse Resp B/P (MAP) Pulse Ox O2 Delivery O2 Flow Rate FiO2 11/04/24 10:11 131/85 11/04/24 08:51 98.2 65 16 98 98.2 11/03/24 20:00 Room Air* 0 21 Intake/Output Intake and Output 11/04/24 07:00 Intake Total 2860 ml Output Total 1600 ml Balance 1260 ml Intake Oral 2100 ml IV Total 760 ml Output Urine Total 1600 ml General Appearance: Alert, Oriented X3 HEENT: Atraumatic Lungs: Clear to auscultation Cardiovascular: Regular rate, Normal S1, Normal S2 Abdomen: Normal bowel sounds Medications Current Medications Medications Dose Ordered Sig/Ginger Route Start Time Stop Time Status Last Admin Dose Admin Aspirin 81 mg DAILY PO 11/03/24 10:00 Atorvastatin Calcium 20 mg HS PO 11/02/24 22:00 11/03/24 21:57 20 MG Multivit/Ca Carb/ B Cmplx/FA/Prenat 1 tab DAILY PO 11/03/24 10:00 11/04/24 10:10 1 TAB Famotidine 20 mg DAILY IV 11/03/24 10:00 11/04/24 10:10 20 MG Amlodipine Besylate 10 mg DAILY PO 11/03/24 10:00 11/04/24 10:11 10 MG Hydralazine HCl 10 mg Q6HP PRN IV 11/02/24 16:45 Diagnostic Test (Pha) 1 strip ACHS 11/02/24 17:00 11/04/24 11:30 1 STRIP Insulin Human Regular ACHS SC 11/02/24 17:00 Dextrose 50 ml UD PRN IV 11/02/24 16:45 Sodium Chloride 1,000 ml @ 60 mls/hr [id number] IV 11/02/24 16:45 11/03/24 22:02 60 MLS/HR Acetaminophen/ Hydrocodone Bitart 1 tab Q4HP PRN PO 11/02/24 16:45 11/04/24 05:28 1 TAB Ondansetron HCl 4 mg Q4HP PRN IV 11/02/24 16:45 11/02/24 22:21 4 MG Docusate Sodium 100 mg BIDPRN PRN PO 11/02/24 16:45 11/04/24 10:49 100 MG Acetaminophen 650 mg Q6HP PRN PO 11/02/24 16:45 Piperacillin Sod/ Tazobactam Sod 100 ml @ 25 mls/hr Q12H IV 11/03/24 05:00 11/04/24 05:27 25 MLS/HR Nitroglycerin 0.4 mg Q5MINP PRN SL 11/02/24 17:45 Morphine Sulfate 2 mg Q30M PRN IV 11/02/24 17:45 Levothyroxine Sodium 50 mcg QAM@0600 PO 11/03/24 06:00 11/04/24 05:27 50 MCG Laboratory Results Laboratory Tests 11/04/24 11:45 Chemistry Test 11/04/24 11:45 Calcium Level 9.2 mg/dL (8.7-10.4) Urinalysis Test 11/02/24 15:47 Urine Color Brown (Yellow) H Urine Clarity Ex.turbid (Clear) Urine pH 7.0 (5.0-9.0) Urine Specific [place] 1.005 (1.001-1.035) Urine Protein 1+ (Negative) H Urine Ketones Negative (Negative) Urine Blood 2+ /uL (Negative) H Urine Nitrite Negative (Negative) Urine Bilirubin Negative (Negative) Urine Urobilinogen Normal mg/dL (Negative) Urine Leukocyte Esterase 3+ /uL (Negative) Urine RBC 96 /hpf (0 - 4) Urine WBC Clumps Present /hpf (None Seen) Urine Microscopic WBC 1794 /HPF (0-5) H Urine Squamous Epithelial Cells Few /hpf (<5) Urine Bacteria Many /hpf (None Seen) H Urine Mucus Few (None Seen) Urine Glucose Normal mg/dL (Normal) Microbiology Microbiology Date/Time Source Procedure Growth Status 11/03/24 07:20 Nose MRSA Screen - Final Complete 11/02/24 16:40 Blood Blood Culture - Preliminary NO GROWTH AFTER 24 HOURS OF INCUBATION. Resulted 11/02/24 15:47 Urine - Gastelum Port Urine Culture - Final Pseudomonas aeruginosa Complete Assessment/Plan Assessment/Plan UTI (urinary tract infection) Chronic indwelling Gastelum catheter Acute kidney injury superimposed on CKD stage 4 Generalized weakness Continue IV abx urine cx growing pseudomonas IVF Monitor creatinine Plan discussed with: Patient My Orders Orders - BEV DONAHUE MD Procedure Category Date Status Time Complete Blood Count LAB 11/04/24 In Process 10:26 Basic Metabolic Panel LAB 11/05/24 Verified 05:00 Basic Metabolic Panel LAB 11/06/24 Verified 05:00 Basic Metabolic Panel LAB 11/07/24 Verified 05:00 Basic Metabolic Panel LAB 11/08/24 Verified 05:00 Basic Metabolic Panel LAB 11/09/24 Verified 05:00 Basic Metabolic Panel LAB 11/10/24 Verified 05:00 Basic Metabolic Panel LAB 11/11/24 Verified 05:00 Complete Blood Count LAB 11/05/24 Verified 05:00 Complete Blood Count LAB 11/06/24 Verified 05:00 Complete Blood Count LAB 11/07/24 Verified 05:00 Complete Blood Count LAB 11/08/24 Verified 05:00 Complete Blood Count LAB 11/09/24 Verified 05:00 Complete Blood Count LAB 11/10/24 Verified 05:00 Complete Blood Count LAB 11/11/24 Verified 05:00 Manual Differential LAB 11/04/24 In Process 11:45 Date of Service: Nov 04, 2024 Billing Provider: BEV DONAHUE MD Common Visit Codes: [id number] INP/OBS CARE(HIGH) BEV DONAHUE MD Nov 04, 2024 12:45
[2024-11-04 12:52] LABS: Total Cells Counted 100.0 (100)
[2024-11-05] VITALS (7 sets, daily range): BP systolic 139–158; BP diastolic 61–97; PULSE 65–85; RESP 15–18; TEMP 97.5–98.5; O2SAT 92–99
[2024-11-05 07:16] LABS: Hematocrit 26.4 % (36.0-46.0); Hemoglobin 9.1 g/dL (12.2-16.2); Mean Corpuscular Hemoglobin 29.5 pg (28.0-32.0); Mean Corpuscular Volume 85.7 fL (80.0-100.0)
[2024-11-05 07:18] LABS: Anion Gap 10 (5-15); Carbon Dioxide 23 mmol/L (20-31); Potassium 3.7 mmol/L (3.5-5.1); Sodium 142 mmol/L (136-145)
[2024-11-05 07:19] LABS: Calcium 9.6 mg/dL (8.7-10.4); Chloride 109 mmol/L (98-107)
[2024-11-05 07:24] LABS: BUN/Creatinine Ratio 11.6 (10.0-20.0); Blood Urea Nitrogen 20 mg/dL (9-23); Glucose 88 mg/dL (74-106)
[2024-11-05 07:58] LABS: Anisocytosis Slight
[2024-11-05 07:59] LABS: Total Cells Counted 100.0 (100)
--- NOTE | 2024-11-05 12:19 | DVHINCON2 ---
Date Seen: Nov 05, 2024 Reason for Consultation Left heel decubitus ulcer History of Present Illness The patient is a 74-year-old female bed-bound with past medical history of asthma, CHF, diabetes mellitus, hypertension, hypothyroidism, and hyperlipidemia who presented to [facility] ED for evaluation of Gastelum catheter due for change. 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 Patient was seen and evaluated in the ED, laboratory data shows WBC 4.9, hemoglobin 10.9, hematocrit 32.8, platelets 206, sodium 138, potassium 4.0, BUN 21, creatinine 1.83, glucose 95, calcium 10.4, blood pressure 130/90, heart rate 84, temperature 97.6 F, O2 saturation 98% on room air. Urinalysis positive for urinary tract infection. Patient was started on IV antibiotic regimen Rocephin, please see medication orders section in the computer. On my assessment, patient denied chest pain, no headache, no dizziness, no diaphoresis, no shortness of breaths, no nausea, no vomiting, no fever, no chills. patient was admitted for further evaluation and medical management. Past Medical History See H&P Past Surgical History See H&P Family History: Patient reports no known family medical history. Allergies: Coded Allergies: NO KNOWN ALLERGIES (Unverified , 11/11/18) Home Meds Active Scripts Docusate Sodium (Colace) 100 Mg Cap, 1 CAP PO BID, #30 CAP Prov:VIJAY COMBS MD 10/17/24 Reported Medications Febuxostat (Febuxostat) 40 Mg Tab, 1 TAB PO DAILY for 30 Days, #30 07/07/24 Diclofenac Sodium (Diclofenac Sodium Ec) 50 Mg Tab, 1 TAB PO Q12HR for 30 Days, #60 07/07/24 Epoetin Julito (Epogen) 20,000 Unit/Ml Inj, 1 ML SC Q30D for 60 Days, #2 07/07/24 Gabapentin (Gabapentin) 400 Mg Cap, 1 CAP PO TID for 40 Days, #120 07/07/24 B-Complex W/ C & Folic Acid ([facility]) Tab, 1 TAB PO DAILY for 30 Days, #30 03/12/24 Fluticasone Propionate (Nasal) (Fluticasone Propionate Na) 50 Mcg/Act Spr, 1 SPRAY EACHNOSTRI BID for 30 Days, #16 03/12/24 Oxycodone W/ Acetaminophen (Apap/Oxycodone) 1 Tab Tab, 1 TAB PO Q8HR for 30 Days, #90 03/12/24 Pregabalin (Lyrica) 75 Mg Cap, 1 CAP PO Q12HR for 30 Days, #60 03/12/24 Losartan Potassium (Losartan Potassium) 50 Mg Tab, 0.5 TAB PO DAILY for 100 Days, #50 03/12/24 Furosemide (Furosemide) 40 Mg Tab, 1 TAB PO QAM PRN for 30 Days, #30 03/12/24 Ferrous Sulfate (Ferosul) 325 Mg Tab, 1 TAB PO 3X/WEEK for 84 Days, #36 03/12/24 Clonazepam (Clonazepam) 0.5 Mg Tab, 1 TAB PO BIDPRN for 88 Days, #176 03/12/24 Carbamazepine (Carbamazepine) 200 Mg Tab, 1 TAB PO BID for 90 Days, #180 03/12/24 Oxycodone Hcl (OxyCONTIN ER Tablet) 10 Mg Tb, 1 TAB PO BID, #60 TAB 03/12/24 Omeprazole ([facility] Omeprazole Odt) 20 Mg Tab, 1 TAB PO BID 08/03/22 Montelukast Sodium (MONTELUKAST SODIUM) 10 Mg Tab, 1 TAB PO DAILY for 100 Days, #100 08/03/22 Atorvastatin Calcium (ATORVASTATIN CALCIUM) 40 Mg Tab, 1 TAB PO DAILY for 90 Days, #90 06/15/18 Amlodipine Besylate (Amlodipine Besylate) 10 Mg Tab, 1 TAB PO DAILY, #30 TAB 5 Refills 06/15/18 Levothyroxine Sodium (Levothyroxine Sodium) 50 Mcg Tab, 75 MCG PO QAM for 30 Days, #30 01/25/17 Venlafaxine Hydrochloride (Venlafaxine Hcl) 75 Mg Tab, 200 MG PO DAILY, TAB 01/25/17 Vital Signs Vital Signs Date Time Temp Pulse Resp B/P (MAP) Pulse Ox O2 Delivery O2 Flow Rate FiO2 11/05/24 09:36 158/97 11/05/24 09:07 98.1 68 16 97 98.1 11/05/24 08:00 Room Air* 0 21 Physical Exam Dermatological: Skin is dry with mild erythema and some maceration around the wound site No gross deformities noted Mild non-pitting edema present bilaterally Large blister to the left posterior heel without any drainage or surrounding cellulitis Vascular: Dorsalis pedis and posterior tibial pulses are 1+ bilaterally Capillary refill is under 2 seconds Skin temperature is warm bilaterally Neurologic: Protective sensation is absent on the plantar forefoot bilaterally Monofilament testing reveals decreased sensation in multiple plantar sites Musculoskeletal: Range of motion at the ankle and MTP joints is within normal limits. Strength is 5/5 in all tested muscle groups. Gait is antalgic due to offloading of the affected limb. Labs/Diagnostic Data Labs Test 11/05/24 11:30 11/05/24 05:37 11/03/24 05:54 11/02/24 16:40 Range/Units POC Glucose 101 70-106 mg/dl White Blood Count 3.8 L 4.4-10.8 10^3/uL Red Blood Count 3.08 L 4.0-5.20 10^6/uL Hemoglobin 9.1 L 12.2-16.2 g/dL Hematocrit 26.4 L 36.0-46.0 % Mean Corpuscular Volume 85.7 # 80.0-100.0 fL Mean Corpuscular Hemoglobin 29.5 28.0-32.0 pg Mean Corpuscular Hemoglobin Concent 34.4 32.0-36.0 g/dL Red Cell Distribution Width 18.2 H 11.8-14.3 % Platelet Count 181 140-450 10^3/uL Mean Platelet Volume 6.6 L 6.9-10.8 fL Neutrophils (%) (Auto) 37.0-80.0 % Lymphocytes (%) (Auto) 10.0-50.0 % Monocytes (%) (Auto) 0.0-12.0 % Basophils (%) (Auto) 0.0-2.0 % Neutrophils # (Auto) 1.6-8.6 10 ^3/uL Lymphocytes # (Auto) 0.4-5.4 10 ^3/uL Monocytes # (Auto) 0-1.3 10 ^3/uL Differential Total Cells Counted 100.0 100 Neutrophils % (Manual) 52 37.0-80.0 Band Neutrophils % (Manual) 0 Lymphocytes % (Manual) 33 10.0-50.0 Monocytes % (Manual) 8 0-12 Eosinophils % (Manual) 7 0-7 Basophils % (Manual) 0 0.0-2.0 Metamyelocytes % (manual) 0 Myelocytes % (Manual) 0 Promyelocytes % (Manual) 0 Blast Cells % (Manual) 0 Reactive Lymphocytes 0 Platelet Estimate Adequate Anisocytosis (manual) Slight Target Cells Few Schistocytes Few Sodium Level 142 136-145 mmol/L Potassium Level 3.7 3.5-5.1 mmol/L Chloride Level 109 H 98-107 mmol/L Carbon Dioxide Level 23 20-31 mmol/L Anion Gap 10 5-15 Blood Urea Nitrogen 20 9-23 mg/dL Creatinine 1.72 H 0.550-1.02 mg/dL Glomerular Filtration Rate Calc 31 >90 mL/min BUN/Creatinine Ratio 11.6 10.0-20.0 Serum Glucose 88 74-106 mg/dL Calcium Level 9.6 8.7-10.4 mg/dL Total Bilirubin 0.4 0.2-1.0 mg/dL Aspartate Amino Transferase (AST) 16 13-40 U/L Alanine Aminotransferase (ALT) 11 7-40 U/L Alkaline Phosphatase 77 46-116 U/L Total Protein 5.7 5.7-8.2 g/dL Albumin 3.7 3.2-4.8 g/dL Lactic Acid Level 1.6 0.4-2.0 mmol/L Test 11/02/24 15:47 11/02/24 13:42 Range/Units Urine Color Brown H Yellow Urine Clarity Ex.turbid Clear Urine pH 7.0 5.0-9.0 Urine Specific [place] 1.005 1.001-1.035 Urine Protein 1+ H Negative Urine Ketones Negative Negative Urine Blood 2+ H Negative /uL Urine Nitrite Negative Negative Urine Bilirubin Negative Negative Urine Urobilinogen Normal Negative mg/dL Urine Leukocyte Esterase 3+ Negative /uL Urine RBC 96 0 - 4 /hpf Urine WBC Clumps Present None Seen /hpf Urine Microscopic WBC 1794 H 0-5 /HPF Urine Squamous Epithelial Cells Few <5 /hpf Urine Bacteria Many H None Seen /hpf Urine Mucus Few None Seen Urine Glucose Normal Normal mg/dL B-Type Natriuretic Peptide 35.04 0-100 pg/mL Thyroid Stimulating Hormone (TSH) 6.04 H 0.55-4.78 uIU/mL Microbiology Date/Time Source Procedure Growth Status 11/03/24 07:20 Nose MRSA Screen - Final Complete 11/02/24 16:40 Blood Blood Culture - Preliminary NO GROWTH AFTER 48 HOURS OF INCUBATION. Resulted 11/02/24 15:47 Urine - Gastelum Port Urine Culture - Final Pseudomonas aeruginosa Complete Problems(with codes): (1) Pain management (2) Vertigo (3) Dysuria (4) Post-operative complication (5) Gastelum catheter problem (6) Hematuria of unknown etiology (7) Intractable abdominal pain (8) Intractable abdominal pain (9) Hip pain (10) Anemia (11) Sciatica (12) Lumbar radiculopathy (13) Osteoarthritis (14) Abdominal pain (15) Constipation (16) Cholelithiasis (17) N&V (nausea and vomiting) (18) Multifocal pneumonia (19) Sepsis due to urinary tract infection (20) BRITTNEE (acute kidney injury) (21) UTI (urinary tract infection) (22) Chronic indwelling Gastelum catheter (23) Acute kidney injury superimposed on CKD (24) Generalized weakness Plan/Recommendation ASSESSMENT: Patient is a 74-year-old seen on the floor for a decubitus heel ulcer PLAN: - The patients chart was reviewed, clinical findings were discussed with the patient, the etiologies of the conditions were discussed in detail, and a treatment plan was agreed to at this time, with both oral and written instructions provided. - appears to be stable at this point - do not puncture the blister - keep the pressure off the heel - if opens up, just Betadine on the heel - can follow up after discharge to monitor for any changes All questions were answered and concerns addressed to the patient's satisfa ction. The patient was given the phone number to the clinic and was told how to make contact with the clinic should any concerns or questions arise. Patient understands that if any questions or concerns arise prior to the next appointment, we should be contacted immediately. FOLLOW-UP: Continue to follow while inpatient Plan discussed with: Patient Date of Service: Nov 05, 2024 Billing Provider: MURTAZA RAMIREZ DPM Common Visit Codes: CONSULT ONLY Consultation Codes: [id number] CONSULT <80MIN MURTAZA RAMIREZ DPM Nov 05, 2024 12:19
[2024-11-05] MEDS: FUROSEMIDE 20 MG TAB PO STA (16:04)
--- NOTE | 2024-11-05 19:40 | DVHPN2 ---
Subjective Seen in bed and feeling better Reviewed: H&P, Labs Changes from previous H/P or p: No Changes Eyes: No Pain, No Vision change, No Conjunctivae inflammation, No Eyelid inflammation, No Other, No Redness ENT: No Ear pain, No Ear discharge, No Nose pain, No Nose discharge, No Nose congestion, No Mouth pain, No Mouth swelling, No Throat pain, No Throat swelling, No Other Cardiovascular: No Chest Pain, No Palpitations, No Orthopnea, No Paroxysmal Noc. Dyspnea, No Edema, No Lt Headedness, No Other Respiratory: No Cough, No Dry, No Shortness of breath, No SOB with excertion, No Wheezing, No Hemoptysis, No Pleuritic Pain, No Sputum, No Other Gastrointestinal: No Nausea, No Vomiting, No Abdominal Pain, No Diarrhea, No Constipation, No Melena, No Hematochezia, No Other Genitourinary: No Dysuria, No Frequency, No Incontinence, No Hematuria; R etention, Other (Gastelum catheter in place) Musculoskeletal: No other, No neck pain, No shoulder pain, No arm pain, No back pain, No hand pain, No leg pain, No foot pain Skin: No Rash, No Lesions, No Jaundice, No Bruising, No Other Objective Vitals Vital Signs Date Time Temp Pulse Resp B/P (MAP) Pulse Ox O2 Delivery O2 Flow Rate FiO2 11/05/24 17:00 98.5 65 18 149/79 (102) 98 98.5 11/05/24 08:00 Room Air* 0 21 Intake/Output Intake and Output 11/05/24 07:00 Intake Total 1150 ml Output Total 2000 ml Balance -850 ml Intake Oral 1050 ml IV Total 100 ml Output Urine Total 2000 ml # Bowel Movements 1 General Appearance: Alert, Oriented X3 HEENT: Atraumatic Lungs: Clear to auscultation Cardiovascular: Regular rate, Normal S1, Normal S2 Abdomen: Normal bowel sounds Medications Current Medications Medications Dose Ordered Sig/Ginger Route Start Time Stop Time Status Last Admin Dose Admin Aspirin 81 mg DAILY PO 11/03/24 10:00 Atorvastatin Calcium 20 mg HS PO 11/02/24 22:00 11/04/24 22:00 20 MG Multivit/Ca Carb/ B Cmplx/FA/Prenat 1 tab DAILY PO 11/03/24 10:00 11/05/24 09:35 1 TAB Famotidine 20 mg DAILY IV 11/03/24 10:00 11/05/24 09:35 20 MG Amlodipine Besylate 10 mg DAILY PO 11/03/24 10:00 11/05/24 09:36 10 MG Hydralazine HCl 10 mg Q6HP PRN IV 11/02/24 16:45 Diagnostic Test (Pha) 1 strip ACHS 11/02/24 17:00 11/05/24 17:32 1 STRIP Insulin Human Regular ACHS SC 11/02/24 17:00 Dextrose 50 ml UD PRN IV 11/02/24 16:45 Sodium Chloride 1,000 ml @ 60 mls/hr [id number] IV 11/02/24 16:45 11/05/24 11:32 60 MLS/HR Acetaminophen/ Hydrocodone Bitart 1 tab Q4HP PRN PO 11/02/24 16:45 11/04/24 05:28 1 TAB Ondansetron HCl 4 mg Q4HP PRN IV 11/02/24 16:45 11/05/24 11:25 4 MG Docusate Sodium 100 mg BIDPRN PRN PO 11/02/24 16:45 11/05/24 10:24 100 MG Acetaminophen 650 mg Q6HP PRN PO 11/02/24 16:45 Piperacillin Sod/ Tazobactam Sod 100 ml @ 25 mls/hr Q12H IV 11/03/24 05:00 11/05/24 17:07 25 MLS/HR Nitroglycerin 0.4 mg Q5MINP PRN SL 11/02/24 17:45 Morphine Sulfate 2 mg Q30M PRN IV 11/02/24 17:45 Levothyroxine Sodium 50 mcg QAM@0600 PO 11/03/24 06:00 11/05/24 06:06 50 MCG Laboratory Results Laboratory Tests 11/05/24 05:37 Chemistry Test 11/05/24 05:37 Calcium Level 9.6 mg/dL (8.7-10.4) Urinalysis Test 11/02/24 15:47 Urine Color Brown (Yellow) H Urine Clarity Ex.turbid (Clear) Urine pH 7.0 (5.0-9.0) Urine Specific [place] 1.005 (1.001-1.035) Urine Protein 1+ (Negative) H Urine Ketones Negative (Negative) Urine Blood 2+ /uL (Negative) H Urine Nitrite Negative (Negative) Urine Bilirubin Negative (Negative) Urine Urobilinogen Normal mg/dL (Negative) Urine Leukocyte Esterase 3+ /uL (Negative) Urine RBC 96 /hpf (0 - 4) Urine WBC Clumps Present /hpf (None Seen) Urine Microscopic WBC 1794 /HPF (0-5) H Urine Squamous Epithelial Cells Few /hpf (<5) Urine Bacteria Many /hpf (None Seen) H Urine Mucus Few (None Seen) Urine Glucose Normal mg/dL (Normal) Microbiology Microbiology Date/Time Source Procedure Growth Status 11/03/24 07:20 Nose MRSA Screen - Final Complete 11/02/24 16:40 Blood Blood Culture - Preliminary NO GROWTH AFTER 72 HOURS OF INCUBATION. Resulted 11/02/24 15:47 Urine - Gastelum Port Urine Culture - Final Pseudomonas aeruginosa Complete Assessment/Plan Assessment/Plan UTI (urinary tract infection) Chronic indwelling Gastelum catheter Acute kidney injury superimposed on CKD stage 4 Generalized weakness Continue IV abx urine cx growing pseudomonas IVF Monitor creatinine Plan discussed with: Patient My Orders Orders - BEV DONAHUE MD Procedure Category Date Status Time * Dietary Consult CONS 11/05/24 Transmitted 14:22 Apply: RADHAMES 11/05/24 In Process 11:50 Date of Service: Nov 05, 2024 Billing Provider: BEV DONAHUE MD Common Visit Codes: [id number] INP/OBS CARE(HIGH) BEV DONAHUE MD Nov 05, 2024 19:40
[2024-11-05] MEDS: CIPROFLOXACIN HCL 500 MG TAB PO SCH (23:03)
[2024-11-06 05:00] VITALS: BP 143/84; PULSE 65; RESP 20; TEMP 98.2; O2SAT 100
[2024-11-06 07:23] LABS: Anion Gap 9 (5-15); Carbon Dioxide 25 mmol/L (20-31); Potassium 3.7 mmol/L (3.5-5.1); Sodium 142 mmol/L (136-145)
[2024-11-06 07:24] LABS: Calcium 9.7 mg/dL (8.7-10.4)
[2024-11-06 07:25] LABS: Chloride 108 mmol/L (98-107)
[2024-11-06 07:29] LABS: BUN/Creatinine Ratio 10.4 (10.0-20.0); Blood Urea Nitrogen 20 mg/dL (9-23); Glucose 87 mg/dL (74-106)
[2024-11-06 07:42] LABS: Hematocrit 25.1 % (36.0-46.0); Hemoglobin 8.6 g/dL (12.2-16.2); Mean Corpuscular Hemoglobin 29.4 pg (28.0-32.0); Mean Corpuscular Volume 86.1 fL (80.0-100.0); Nucleated Red Blood Cells % 0.1 %
[2024-11-06 09:00] VITALS: BP 155/90; PULSE 62; RESP 18; TEMP 98.4; O2SAT 97
[2024-11-06 13:00] VITALS: BP 131/93; PULSE 80; RESP 20; TEMP 98; O2SAT 97
[2024-11-06 17:00] VITALS: BP 137/90; PULSE 75; RESP 18; TEMP 97.6; O2SAT 99
--- NOTE | 2024-11-06 18:48 | DVHPN2 ---
Subjective Seen in bed and feeling better Reviewed: H&P, Labs Changes from previous H/P or p: No Changes Eyes: No Pain, No Vision change, No Conjunctivae inflammation, No Eyelid inflammation, No Other, No Redness ENT: No Ear pain, No Ear discharge, No Nose pain, No Nose discharge, No Nose congestion, No Mouth pain, No Mouth swelling, No Throat pain, No Throat swelling, No Other Cardiovascular: No Chest Pain, No Palpitations, No Orthopnea, No Paroxysmal Noc. Dyspnea, No Edema, No Lt Headedness, No Other Respiratory: No Cough, No Dry, No Shortness of breath, No SOB with excertion, No Wheezing, No Hemoptysis, No Pleuritic Pain, No Sputum, No Other Gastrointestinal: No Nausea, No Vomiting, No Abdominal Pain, No Diarrhea, No Constipation, No Melena, No Hematochezia, No Other Genitourinary: No Dysuria, No Frequency, No Incontinence, No Hematuria; R etention, Other (Gastelum catheter in place) Musculoskeletal: No other, No neck pain, No shoulder pain, No arm pain, No back pain, No hand pain, No leg pain, No foot pain Skin: No Rash, No Lesions, No Jaundice, No Bruising, No Other Objective Vitals Vital Signs Date Time Temp Pulse Resp B/P (MAP) Pulse Ox O2 Delivery O2 Flow Rate FiO2 11/06/24 17:00 97.6 75 18 137/90 (106) 99 97.6 11/06/24 08:00 Room Air* 0 21 Intake/Output Intake and Output 11/06/24 06:59 Intake Total 1324 ml Output Total 1900 ml Balance -576 ml Intake Oral 1240 ml Tube Feeding 84 ml Output Urine Total 1900 ml # Bowel Movements 1 General Appearance: Alert, Oriented X3 HEENT: Atraumatic Lungs: Clear to auscultation Cardiovascular: Regular rate, Normal S1, Normal S2 Abdomen: Normal bowel sounds Medications Current Medications Medications Dose Ordered Sig/Ginger Route Start Time Stop Time Status Last Admin Dose Admin Aspirin 81 mg DAILY PO 11/03/24 10:00 Atorvastatin Calcium 20 mg HS PO 11/02/24 22:00 11/05/24 23:03 20 MG Multivit/Ca Carb/ B Cmplx/FA/Prenat 1 tab DAILY PO 11/03/24 10:00 11/06/24 09:37 1 TAB Famotidine 20 mg DAILY IV 11/03/24 10:00 11/06/24 09:37 20 MG Amlodipine Besylate 10 mg DAILY PO 11/03/24 10:00 11/06/24 09:37 10 MG Hydralazine HCl 10 mg Q6HP PRN IV 11/02/24 16:45 Diagnostic Test (Pha) 1 strip ACHS 11/02/24 17:00 11/05/24 17:32 1 STRIP Insulin Human Regular ACHS SC 11/02/24 17:00 Dextrose 50 ml UD PRN IV 11/02/24 16:45 Sodium Chloride 1,000 ml @ 60 mls/hr [id number] IV 11/02/24 16:45 11/05/24 11:32 60 MLS/HR Acetaminophen/ Hydrocodone Bitart 1 tab Q4HP PRN PO 11/02/24 16:45 11/06/24 06:18 1 TAB Ondansetron HCl 4 mg Q4HP PRN IV 11/02/24 16:45 11/05/24 11:25 4 MG Docusate Sodium 100 mg BIDPRN PRN PO 11/02/24 16:45 11/05/24 10:24 100 MG Acetaminophen 650 mg Q6HP PRN PO 11/02/24 16:45 Nitroglycerin 0.4 mg Q5MINP PRN SL 11/02/24 17:45 Morphine Sulfate 2 mg Q30M PRN IV 11/02/24 17:45 Levothyroxine Sodium 50 mcg QAM@0600 PO 11/03/24 06:00 11/06/24 06:18 50 MCG Ciprofloxacin 500 mg Q12HR PO 11/05/24 22:00 11/06/24 09:37 500 MG Laboratory Results Laboratory Tests 11/06/24 05:18 Chemistry Test 11/06/24 05:18 Calcium Level 9.7 mg/dL (8.7-10.4) Urinalysis Test 11/02/24 15:47 Urine Color Brown (Yellow) H Urine Clarity Ex.turbid (Clear) Urine pH 7.0 (5.0-9.0) Urine Specific [place] 1.005 (1.001-1.035) Urine Protein 1+ (Negative) H Urine Ketones Negative (Negative) Urine Blood 2+ /uL (Negative) H Urine Nitrite Negative (Negative) Urine Bilirubin Negative (Negative) Urine Urobilinogen Normal mg/dL (Negative) Urine Leukocyte Esterase 3+ /uL (Negative) Urine RBC 96 /hpf (0 - 4) Urine WBC Clumps Present /hpf (None Seen) Urine Microscopic WBC 1794 /HPF (0-5) H Urine Squamous Epithelial Cells Few /hpf (<5) Urine Bacteria Many /hpf (None Seen) H Urine Mucus Few (None Seen) Urine Glucose Normal mg/dL (Normal) Microbiology Microbiology Date/Time Source Procedure Growth Status 11/03/24 07:20 Nose MRSA Screen - Final Complete 11/02/24 16:40 Blood Blood Culture - Preliminary NO GROWTH AFTER 72 HOURS OF INCUBATION. Resulted 11/02/24 15:47 Urine - Gastelum Port Urine Culture - Final Pseudomonas aeruginosa Complete Assessment/Plan Assessment/Plan UTI (urinary tract infection) Chronic indwelling Gastelum catheter Acute kidney injury superimposed on CKD stage 4 Generalized weakness Continue IV abx urine cx growing pseudomonas IVF Monitor creatinine PT eval Plan discussed with: Patient My Orders Orders - BEV DONAHUE MD Procedure Category Date Status Time Ciprofloxacin Tablet PHA 11/05/24 In Process (Cipro Tablet) 22:00 Date of Service: Nov 06, 2024 Billing Provider: BEV DONAHUE MD Common Visit Codes: [id number] INP/OBS CARE(HIGH) BEV DONAHUE MD Nov 06, 2024 18:48
[2024-11-06 21:00] VITALS: BP 131/85; PULSE 67; RESP 18; TEMP 98.3; O2SAT 100
[2024-11-07] VITALS (8 sets, daily range): BP systolic 141–147; BP diastolic 80–87; PULSE 65–82; RESP 17–19; TEMP 97.4–98.4; O2SAT 93–99
[2024-11-07 07:28] LABS: Hematocrit 24.2 % (36.0-46.0); Hemoglobin 8.4 g/dL (12.2-16.2); Nucleated Red Blood Cells % 0.0 %
[2024-11-07 07:30] LABS: Mean Corpuscular Hemoglobin 29.5 pg (28.0-32.0); Mean Corpuscular Volume 85.5 fL (80.0-100.0)
[2024-11-07 07:32] LABS: Calcium 9.5 mg/dL (8.7-10.4); Potassium 3.6 mmol/L (3.5-5.1); Sodium 143 mmol/L (136-145)
[2024-11-07 07:33] LABS: Anion Gap 11 (5-15); Carbon Dioxide 23 mmol/L (20-31)
[2024-11-07 07:35] LABS: Chloride 109 mmol/L (98-107)
[2024-11-07 07:38] LABS: BUN/Creatinine Ratio 10.2 (10.0-20.0); Blood Urea Nitrogen 18 mg/dL (9-23); Glucose 80 mg/dL (74-106)
--- NOTE | 2024-11-07 18:53 | DVHPN2 ---
Subjective I am assuming the care of the patient from today onwards who was under the care of the hospitalist team. Patient is still complaining of lower abdominal pain. Reviewed: H&P, Labs Changes from previous H/P or p: No Changes Eyes: No Pain, No Vision change, No Conjunctivae inflammation, No Eyelid inflammation, No Other, No Redness ENT: No Ear pain, No Ear discharge, No Nose pain, No Nose discharge, No Nose congestion, No Mouth pain, No Mouth swelling, No Throat pain, No Throat swelling, No Other Cardiovascular: No Chest Pain, No Palpitations, No Orthopnea, No Paroxysmal Noc. Dyspnea, No Edema, No Lt Headedness, No Other Respiratory: No Cough, No Dry, No Shortness of breath, No SOB with excertion, No Wheezing, No Hemoptysis, No Pleuritic Pain, No Sputum, No Other Gastrointestinal: No Nausea, No Vomiting, No Abdominal Pain, No Diarrhea, No Constipation, No Melena, No Hematochezia, No Other Genitourinary: No Dysuria, No Frequency, No Incontinence, No Hematuria; R etention, Other (Gastelum catheter in place) Musculoskeletal: No other, No neck pain, No shoulder pain, No arm pain, No back pain, No hand pain, No leg pain, No foot pain Skin: No Rash, No Lesions, No Jaundice, No Bruising, No Other Objective Vitals Vital Signs Date Time Temp Pulse Resp B/P (MAP) Pulse Ox O2 Delivery O2 Flow Rate FiO2 11/07/24 17:00 98.0 76 19 147/86 (106) 99 98.0 11/07/24 08:00 Room Air* 0 21 Intake/Output Intake and Output 11/07/24 07:00 Intake Total 2420 ml Output Total 1850 ml Balance 570 ml Intake Oral 1550 ml IV Total 870 ml Output Urine Total 1850 ml # Bowel Movements 1 Exam HEENT pupils are reactive Neck is supple CV is S1-S2 regular rate and rhythm Respiratory diminished breath sounds bases GI positive bowel sound Extremity no edema [employer] no motor deficit General Appearance: Alert, Oriented X3 HEENT: Atraumatic Lungs: Clear to auscultation Cardiovascular: Regular rate, Normal S1, Normal S2 Abdomen: Normal bowel sounds Medications Current Medications Medications Dose Ordered Sig/Ginger Route Start Time Stop Time Status Last Admin Dose Admin Aspirin 81 mg DAILY PO 11/03/24 10:00 Atorvastatin Calcium 20 mg HS PO 11/02/24 22:00 11/06/24 21:27 20 MG Multivit/Ca Carb/ B Cmplx/FA/Prenat 1 tab DAILY PO 11/03/24 10:00 11/07/24 09:54 1 TAB Famotidine 20 mg DAILY IV 11/03/24 10:00 11/07/24 09:54 20 MG Amlodipine Besylate 10 mg DAILY PO 11/03/24 10:00 11/07/24 09:56 10 MG Hydralazine HCl 10 mg Q6HP PRN IV 11/02/24 16:45 Diagnostic Test (Pha) 1 strip ACHS 11/02/24 17:00 11/07/24 05:26 1 STRIP Insulin Human Regular ACHS SC 11/02/24 17:00 Dextrose 50 ml UD PRN IV 11/02/24 16:45 Sodium Chloride 1,000 ml @ 60 mls/hr [id number] IV 11/02/24 16:45 11/06/24 21:26 60 MLS/HR Acetaminophen/ Hydrocodone Bitart 1 tab Q4HP PRN PO 11/02/24 16:45 11/07/24 09:55 1 TAB Ondansetron HCl 4 mg Q4HP PRN IV 11/02/24 16:45 11/05/24 11:25 4 MG Docusate Sodium 100 mg BIDPRN PRN PO 11/02/24 16:45 11/07/24 11:48 100 MG Acetaminophen 650 mg Q6HP PRN PO 11/02/24 16:45 Nitroglycerin 0.4 mg Q5MINP PRN SL 11/02/24 17:45 Morphine Sulfate 2 mg Q30M PRN IV 11/02/24 17:45 Levothyroxine Sodium 50 mcg QAM@0600 PO 11/03/24 06:00 11/07/24 05:17 50 MCG Ciprofloxacin 500 mg Q12HR PO 11/05/24 22:00 11/07/24 09:54 500 MG Laboratory Results Laboratory Tests 11/07/24 05:07 Chemistry Test 11/07/24 05:07 Calcium Level 9.5 mg/dL (8.7-10.4) Urinalysis Test 11/02/24 15:47 Urine Color Brown (Yellow) H Urine Clarity Ex.turbid (Clear) Urine pH 7.0 (5.0-9.0) Urine Specific [place] 1.005 (1.001-1.035) Urine Protein 1+ (Negative) H Urine Ketones Negative (Negative) Urine Blood 2+ /uL (Negative) H Urine Nitrite Negative (Negative) Urine Bilirubin Negative (Negative) Urine Urobilinogen Normal mg/dL (Negative) Urine Leukocyte Esterase 3+ /uL (Negative) Urine RBC 96 /hpf (0 - 4) Urine WBC Clumps Present /hpf (None Seen) Urine Microscopic WBC 1794 /HPF (0-5) H Urine Squamous Epithelial Cells Few /hpf (<5) Urine Bacteria Many /hpf (None Seen) H Urine Mucus Few (None Seen) Urine Glucose Normal mg/dL (Normal) Microbiology Microbiology Date/Time Source Procedure Growth Status 11/03/24 07:20 Nose MRSA Screen - Final Complete 11/02/24 16:40 Blood Blood Culture - Final NO GROWTH AFTER 5 DAYS OF INCUBATION. Complete 11/02/24 15:47 Urine - Gastelum Port Urine Culture - Final Pseudomonas aeruginosa Complete Assessment/Plan Assessment/Plan 74-year-old female with a known history of CKD stage 4, hypertension, hypothyroidism initially presented to the hospital with a change of Gastelum catheter found to have 1. AKA with underlying CKD stage 4 2. Pseudomonas UTI 3. Hypertension 4. Hypothyroidism 5. Physical deconditioning -physical therapy evaluation and treatment, continue p.o. antibiotics. Plan discussed with: Patient Date of Service: Nov 07, 2024 Billing Provider: CRISTIANO PHILIPPE MD Common Visit Codes: [id number] INP/OBS CARE(MOD) CRISTIANO PHILIPPE MD Nov 07, 2024 18:53
[2024-11-08] VITALS (8 sets, daily range): BP systolic 137–151; BP diastolic 70–93; PULSE 72–86; RESP 17–20; TEMP 97.6–98.4; O2SAT 95–99
[2024-11-08 07:57] LABS: Hematocrit 25.1 % (36.0-46.0); Hemoglobin 8.6 g/dL (12.2-16.2); Mean Corpuscular Hemoglobin 29.2 pg (28.0-32.0); Mean Corpuscular Volume 85.4 fL (80.0-100.0); Nucleated Red Blood Cells % 0.1 %
[2024-11-08 08:02] LABS: Anion Gap 11 (5-15); Carbon Dioxide 23 mmol/L (20-31); Chloride 107 mmol/L (98-107); Potassium 3.7 mmol/L (3.5-5.1); Sodium 141 mmol/L (136-145)
[2024-11-08 08:03] LABS: Calcium 9.8 mg/dL (8.7-10.4)
[2024-11-08 08:08] LABS: BUN/Creatinine Ratio 9.7 (10.0-20.0); Blood Urea Nitrogen 17 mg/dL (9-23); Glucose 83 mg/dL (74-106)
--- NOTE | 2024-11-08 15:51 | DVHPN2 ---
Subjective Patient's states that she does not feel fine, physical therapy evaluation and treatment. Reviewed: H&P, Labs Changes from previous H/P or p: No Changes Eyes: No Pain, No Vision change, No Conjunctivae inflammation, No Eyelid inflammation, No Other, No Redness ENT: No Ear pain, No Ear discharge, No Nose pain, No Nose discharge, No Nose congestion, No Mouth pain, No Mouth swelling, No Throat pain, No Throat swelling, No Other Cardiovascular: No Chest Pain, No Palpitations, No Orthopnea, No Paroxysmal Noc. Dyspnea, No Edema, No Lt Headedness, No Other Respiratory: No Cough, No Dry, No Shortness of breath, No SOB with excertion, No Wheezing, No Hemoptysis, No Pleuritic Pain, No Sputum, No Other Gastrointestinal: No Nausea, No Vomiting, No Abdominal Pain, No Diarrhea, No Constipation, No Melena, No Hematochezia, No Other Genitourinary: No Dysuria, No Frequency, No Incontinence, No Hematuria; R etention, Other (Gastelum catheter in place) Musculoskeletal: No other, No neck pain, No shoulder pain, No arm pain, No back pain, No hand pain, No leg pain, No foot pain Skin: No Rash, No Lesions, No Jaundice, No Bruising, No Other Objective Vitals Vital Signs Date Time Temp Pulse Resp B/P (MAP) Pulse Ox O2 Delivery O2 Flow Rate FiO2 11/08/24 12:42 98.4 86 20 140/93 (109) 97 98.4 11/08/24 08:00 Room Air* 0 21 Intake/Output Intake and Output 11/08/24 07:00 Intake Total 1450 ml Output Total 700 ml Balance 750 ml Intake Oral 1450 ml Output Urine Total 700 ml Exam HEENT pupils are reactive Neck is supple CV is S1-S2 regular rate and rhythm Respiratory diminished breath sounds bases GI positive bowel sound Extremity no edema 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 General Appearance: Alert, Oriented X3 HEENT: Atraumatic Lungs: Clear to auscultation Cardiovascular: Regular rate, Normal S1, Normal S2 Abdomen: Normal bowel sounds Medications Current Medications Medications Dose Ordered Sig/Ginger Route Start Time Stop Time Status Last Admin Dose Admin Aspirin 81 mg DAILY PO 11/03/24 10:00 Atorvastatin Calcium 20 mg HS PO 11/02/24 22:00 11/07/24 21:59 20 MG Multivit/Ca Carb/ B Cmplx/FA/Prenat 1 tab DAILY PO 11/03/24 10:00 11/08/24 09:06 1 TAB Famotidine 20 mg DAILY IV 11/03/24 10:00 11/08/24 09:06 20 MG Amlodipine Besylate 10 mg DAILY PO 11/03/24 10:00 11/08/24 09:06 10 MG Hydralazine HCl 10 mg Q6HP PRN IV 11/02/24 16:45 Diagnostic Test (Pha) 1 strip ACHS 11/02/24 17:00 11/08/24 11:57 1 STRIP Insulin Human Regular ACHS SC 11/02/24 17:00 Dextrose 50 ml UD PRN IV 11/02/24 16:45 Sodium Chloride 1,000 ml @ 60 mls/hr [id number] IV 11/02/24 16:45 11/08/24 06:13 60 MLS/HR Acetaminophen/ Hydrocodone Bitart 1 tab Q4HP PRN PO 11/02/24 16:45 11/08/24 11:57 1 TAB Ondansetron HCl 4 mg Q4HP PRN IV 11/02/24 16:45 11/05/24 11:25 4 MG Docusate Sodium 100 mg BIDPRN PRN PO 11/02/24 16:45 11/08/24 09:13 100 MG Acetaminophen 650 mg Q6HP PRN PO 11/02/24 16:45 Nitroglycerin 0.4 mg Q5MINP PRN SL 11/02/24 17:45 Morphine Sulfate 2 mg Q30M PRN IV 11/02/24 17:45 Levothyroxine Sodium 50 mcg QAM@0600 PO 11/03/24 06:00 11/08/24 06:12 50 MCG Ciprofloxacin 500 mg Q12HR PO 11/05/24 22:00 11/08/24 09:06 500 MG Laboratory Results Laboratory Tests 11/08/24 05:56 Chemistry Test 11/08/24 05:56 Calcium Level 9.8 mg/dL (8.7-10.4) Urinalysis Test 11/02/24 15:47 Urine Color Brown (Yellow) H Urine Clarity Ex.turbid (Clear) Urine pH 7.0 (5.0-9.0) Urine Specific [place] 1.005 (1.001-1.035) Urine Protein 1+ (Negative) H Urine Ketones Negative (Negative) Urine Blood 2+ /uL (Negative) H Urine Nitrite Negative (Negative) Urine Bilirubin Negative (Negative) Urine Urobilinogen Normal mg/dL (Negative) Urine Leukocyte Esterase 3+ /uL (Negative) Urine RBC 96 /hpf (0 - 4) Urine WBC Clumps Present /hpf (None Seen) Urine Microscopic WBC 1794 /HPF (0-5) H Urine Squamous Epithelial Cells Few /hpf (<5) Urine Bacteria Many /hpf (None Seen) H Urine Mucus Few (None Seen) Urine Glucose Normal mg/dL (Normal) Microbiology Microbiology Date/Time Source Procedure Growth Status 11/03/24 07:20 Nose MRSA Screen - Final Complete 11/02/24 16:40 Blood Blood Culture - Final NO GROWTH AFTER 5 DAYS OF INCUBATION. Complete 11/02/24 15:47 Urine - Gastelum Port Urine Culture - Final Pseudomonas aeruginosa Complete Assessment/Plan Assessment/Plan 74-year-old female with a known history of CKD stage 4, hypertension, hypothyroidism initially presented to the hospital with a change of Gastelum catheter found to have 1. AKA with underlying CKD stage 4 2. Pseudomonas UTI 3. Hypertension 4. Hypothyroidism 5. Physical deconditioning -physical therapy evaluation and treatment, continue p.o. antibiotics. -discharge plan. Plan discussed with: Patient My Orders Orders - CRISTIANO PHILIPPE MD Procedure Category Date Status Time * Mushroom Cutter CONS 11/08/24 Transmitted Consult Date of Service: Nov 08, 2024 Billing Provider: CRISTIANO PHILIPPE MD Common Visit Codes: [id number] INP/OBS CARE(MOD) CRISTIANO PHILIPPE MD Nov 08, 2024 15:51
[2024-11-09] VITALS (7 sets, daily range): BP systolic 129–145; BP diastolic 79–94; PULSE 73–83; RESP 14–18; TEMP 97.7–98.6; O2SAT 92–99
[2024-11-09 07:22] LABS: Hematocrit 24.3 % (36.0-46.0); Hemoglobin 8.5 g/dL (12.2-16.2); Mean Corpuscular Hemoglobin 29.8 pg (28.0-32.0); Mean Corpuscular Volume 85.3 fL (80.0-100.0); Nucleated Red Blood Cells % 0.1 %
[2024-11-09 07:26] LABS: Calcium 9.4 mg/dL (8.7-10.4); Potassium 3.8 mmol/L (3.5-5.1); Sodium 143 mmol/L (136-145)
[2024-11-09 07:27] LABS: Anion Gap 12 (5-15); Carbon Dioxide 23 mmol/L (20-31)
[2024-11-09 07:32] LABS: BUN/Creatinine Ratio 8.9 (10.0-20.0); Blood Urea Nitrogen 16 mg/dL (9-23); Chloride 108 mmol/L (98-107); Glucose 85 mg/dL (74-106)
--- NOTE | 2024-11-09 15:35 | DVH ---
CLINICAL HISTORY: Lower extremity sweeling TECHNIQUE: Color and duplex doppler imaging of the bilateral lower extremity veins was performed. Ves karie compression if possible was also performed. WID: COMPARISON: None FINDINGS: Right Lower Extremity: Right common femoral vein: Hypoechoic occlusive thrombus. Right femoral vein: Hypoechoic Occlusive thrombus. Right popliteal vein: Hypoechoic Occlusive thrombus. Hypoechoic occlusive thrombus in the posterior tibial vein. Left Lower Extremity: Left common femoral vein: Normal compressibility and flow. Left femoral vein: Normal compressibility and flow. Left popliteal vein: Hypoechoic occlusive thrombus. Proximal calf veins are normally compressible. IMPRESSION: Positive for acute to subacute appearing occlusive DVT throughout most of the right lower extremity a nd in the left popliteal vein. Critical Result: Bilateral lower extremity DVT, greater on the right Preliminary findings discussed with patient's nurse at 11/09/2024 03:31 PM, and acknowledged receipt and understanding of the findings. ..
[2024-11-09] MEDS: ENOXAPARIN SOD 100 MG/1 ML SYRINGE SC ONE (21:17)
[2024-11-10] VITALS (8 sets, daily range): BP systolic 94–152; BP diastolic 68–97; PULSE 73–104; RESP 16–20; TEMP 97.2–98; O2SAT 93–98
[2024-11-10 07:48] LABS: Hematocrit 24.6 % (36.0-46.0); Hemoglobin 8.5 g/dL (12.2-16.2); Mean Corpuscular Hemoglobin 29.3 pg (28.0-32.0); Mean Corpuscular Volume 84.5 fL (80.0-100.0); Nucleated Red Blood Cells % 0.1 %
[2024-11-10 08:00] LABS: Anion Gap 11 (5-15); Calcium 9.6 mg/dL (8.7-10.4); Carbon Dioxide 22 mmol/L (20-31); Potassium 3.6 mmol/L (3.5-5.1); Sodium 142 mmol/L (136-145)
[2024-11-10 08:05] LABS: Chloride 109 mmol/L (98-107)
[2024-11-10 08:06] LABS: BUN/Creatinine Ratio 7.7 (10.0-20.0); Blood Urea Nitrogen 15 mg/dL (9-23); Glucose 83 mg/dL (74-106)
[2024-11-10] MEDS: ENOXAPARIN SOD 100 MG/1 ML SYRINGE SC SCH (09:19)
--- NOTE | 2024-11-10 18:13 | DVHPN2 ---
Subjective Patient was found to have bilateral lower extremity DVT right more than left currently on therapeutic Lovenox risks benefits and alternatives of therapeutic Lovenox including life-threatening bleeding disability explained to the patient in detail who understand verbalized understanding and agreeable to plan. Reviewed: H&P, Labs Changes from previous H/P or p: No Changes Eyes: No Pain, No Vision change, No Conjunctivae inflammation, No Eyelid inflammation, No Other, No Redness ENT: No Ear pain, No Ear discharge, No Nose pain, No Nose discharge, No Nose congestion, No Mouth pain, No Mouth swelling, No Throat pain, No Throat swelling, No Other Cardiovascular: No Chest Pain, No Palpitations, No Orthopnea, No Paroxysmal Noc. Dyspnea, No Edema, No Lt Headedness, No Other Respiratory: No Cough, No Dry, No Shortness of breath, No SOB with excertion, No Wheezing, No Hemoptysis, No Pleuritic Pain, No Sputum, No Other Gastrointestinal: No Nausea, No Vomiting, No Abdominal Pain, No Diarrhea, No Constipation, No Melena, No Hematochezia, No Other Genitourinary: No Dysuria, No Frequency, No Incontinence, No Hematuria; R etention, Other (Gastelum catheter in place) Musculoskeletal: No other, No neck pain, No shoulder pain, No arm pain, No back pain, No hand pain, No leg pain, No foot pain Skin: No Rash, No Lesions, No Jaundice, No Bruising, No Other Objective Vitals Vital Signs Date Time Temp Pulse Resp B/P (MAP) Pulse Ox O2 Delivery O2 Flow Rate FiO2 11/10/24 17:00 97.8 84 18 151/95 (113) 98 97.8 11/10/24 08:00 Room Air* 0 21 Intake/Output Intake and Output 11/10/24 07:00 Intake Total 3410 ml Output Total 2320 ml Balance 1090 ml Intake Oral 2210 ml IV Total 1200 ml Output Urine Total 2320 ml # Bowel Movements 1 Exam HEENT pupils are reactive Neck is supple CV is S1-S2 regular rate and rhythm Respiratory diminished breath sounds bases GI positive bowel sound Extremity right lower extremity swelling 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 General Appearance: Alert, Oriented X3 HEENT: Atraumatic Lungs: Clear to auscultation Cardiovascular: Regular rate, Normal S1, Normal S2 Abdomen: Normal bowel sounds Medications Current Medications Medications Dose Ordered Sig/Ginger Route Start Time Stop Time Status Last Admin Dose Admin Aspirin 81 mg DAILY PO 11/03/24 10:00 11/10/24 09:20 81 MG Atorvastatin Calcium 20 mg HS PO 11/02/24 22:00 11/09/24 21:16 20 MG Multivit/Ca Carb/ B Cmplx/FA/Prenat 1 tab DAILY PO 11/03/24 10:00 11/10/24 09:17 1 TAB Famotidine 20 mg DAILY IV 11/03/24 10:00 11/10/24 09:17 20 MG Amlodipine Besylate 10 mg DAILY PO 11/03/24 10:00 11/10/24 09:19 10 MG Hydralazine HCl 10 mg Q6HP PRN IV 11/02/24 16:45 Diagnostic Test (Pha) 1 strip ACHS 11/02/24 17:00 11/10/24 11:38 1 STRIP Insulin Human Regular ACHS SC 11/02/24 17:00 Dextrose 50 ml UD PRN IV 11/02/24 16:45 Sodium Chloride 1,000 ml @ 60 mls/hr [id number] IV 11/02/24 16:45 11/10/24 08:05 60 MLS/HR Acetaminophen/ Hydrocodone Bitart 1 tab Q4HP PRN PO 11/02/24 16:45 11/10/24 09:18 1 TAB Ondansetron HCl 4 mg Q4HP PRN IV 11/02/24 16:45 11/05/24 11:25 4 MG Docusate Sodium 100 mg BIDPRN PRN PO 11/02/24 16:45 11/10/24 09:33 100 MG Acetaminophen 650 mg Q6HP PRN PO 11/02/24 16:45 Nitroglycerin 0.4 mg Q5MINP PRN SL 11/02/24 17:45 Morphine Sulfate 2 mg Q30M PRN IV 11/02/24 17:45 Levothyroxine Sodium 50 mcg QAM@0600 PO 11/03/24 06:00 11/10/24 05:41 50 MCG Ciprofloxacin 500 mg Q12HR PO 11/05/24 22:00 11/10/24 09:17 500 MG Enoxaparin Sodium 90 mg Q12HR SC 11/10/24 10:00 11/10/24 09:19 90 MG Laboratory Results Laboratory Tests 11/10/24 06:29 Chemistry Test 11/10/24 06:29 Calcium Level 9.6 mg/dL (8.7-10.4) Urinalysis Test 11/02/24 15:47 Urine Color Brown (Yellow) H Urine Clarity Ex.turbid (Clear) Urine pH 7.0 (5.0-9.0) Urine Specific [place] 1.005 (1.001-1.035) Urine Protein 1+ (Negative) H Urine Ketones Negative (Negative) Urine Blood 2+ /uL (Negative) H Urine Nitrite Negative (Negative) Urine Bilirubin Negative (Negative) Urine Urobilinogen Normal mg/dL (Negative) Urine Leukocyte Esterase 3+ /uL (Negative) Urine RBC 96 /hpf (0 - 4) Urine WBC Clumps Present /hpf (None Seen) Urine Microscopic WBC 1794 /HPF (0-5) H Urine Squamous Epithelial Cells Few /hpf (<5) Urine Bacteria Many /hpf (None Seen) H Urine Mucus Few (None Seen) Urine Glucose Normal mg/dL (Normal) Microbiology Microbiology Date/Time Source Procedure Growth Status 11/03/24 07:20 Nose MRSA Screen - Final Complete 11/02/24 16:40 Blood Blood Culture - Final NO GROWTH AFTER 5 DAYS OF INCUBATION. Complete 11/02/24 15:47 Urine - Gastelum Port Urine Culture - Final Pseudomonas aeruginosa Complete Assessment/Plan Assessment/Plan 74-year-old female with a known history of CKD stage 4, hypertension, hypothyroidism initially presented to the hospital with a change of Gastelum catheter found to have 1. AKIwith underlying CKD stage 4 2. Pseudomonas UTI, finished course of antibiotics 3. Bilateral lower extremity DVT right more than left 4. Hypothyroidism 5. Physical deconditioning -physical therapy evaluation and treatment, discontinue IV antibiotics -therapeutic Lovenox may switch to p.o. Eliquis in a day or so. Plan discussed with: Patient My Orders Orders - CRISTIANO PHILIPPE MD Procedure Category Date Status Time Enoxaparin Sodium PHA 11/10/24 In Process (Lovenox) 10:00 Date of Service: Nov 10, 2024 Billing Provider: CRISTIANO PHILIPPE MD Common Visit Codes: [id number] INP/OBS CARE(MOD) CRISTIANO PHILIPPE MD Nov 10, 2024 18:13
[2024-11-11] VITALS (7 sets, daily range): BP systolic 133–150; BP diastolic 65–100; PULSE 73–91; RESP 16–20; TEMP 98.2–98.6; O2SAT 95–100
[2024-11-11 07:14] LABS: Hematocrit 23.2 % (36.0-46.0); Hemoglobin 8.0 g/dL (12.2-16.2); Mean Corpuscular Hemoglobin 29.5 pg (28.0-32.0); Mean Corpuscular Volume 85.8 fL (80.0-100.0)
[2024-11-11 07:30] LABS: Calcium 9.2 mg/dL (8.7-10.4); Potassium 3.8 mmol/L (3.5-5.1); Sodium 143 mmol/L (136-145)
[2024-11-11 07:31] LABS: Anion Gap 13 (5-15); Carbon Dioxide 21 mmol/L (20-31)
[2024-11-11 07:32] LABS: Chloride 109 mmol/L (98-107)
[2024-11-11 07:36] LABS: BUN/Creatinine Ratio 8.2 (10.0-20.0); Blood Urea Nitrogen 15 mg/dL (9-23); Glucose 87 mg/dL (74-106)
[2024-11-11 08:15] LABS: Total Cells Counted 100.0 (100)
--- NOTE | 2024-11-11 15:21 | DVHPN2 ---
Subjective PATIENT IS CURRENTLY ON THERAPEUTIC LOVENOX FOR DVT WE WILL SWITCH TO ORAL ANTICOAGULATION LIKELY TOMORROW. PATIENT'S WAS EVALUATED BY IR FOR THROMBECTOMY . INTERVENTION RADIOLOGIST TALKED WITH THE FAMILY AND THEY ARE OKAY WITH THE ONLY PILLS FOR NOW ON DISCHARGE. PATIENT IS CHRONICALLY BED-BOUND, NO INTERVENTION/THROMBECTOMY OF THE RIGHT LOWER EXTREMITY. Reviewed: H&P, Labs Changes from previous H/P or p: No Changes Eyes: No Pain, No Vision change, No Conjunctivae inflammation, No Eyelid inflammation, No Other, No Redness ENT: No Ear pain, No Ear discharge, No Nose pain, No Nose discharge, No Nose congestion, No Mouth pain, No Mouth swelling, No Throat pain, No Throat swelling, No Other Cardiovascular: No Chest Pain, No Palpitations, No Orthopnea, No Paroxysmal Noc. Dyspnea, No Edema, No Lt Headedness, No Other Respiratory: No Cough, No Dry, No Shortness of breath, No SOB with excertion, No Wheezing, No Hemoptysis, No Pleuritic Pain, No Sputum, No Other Gastrointestinal: No Nausea, No Vomiting, No Abdominal Pain, No Diarrhea, No Constipation, No Melena, No Hematochezia, No Other Genitourinary: No Dysuria, No Frequency, No Incontinence, No Hematuria; R etention, Other (Gastelum catheter in place) Musculoskeletal: No other, No neck pain, No shoulder pain, No arm pain, No back pain, No hand pain, No leg pain, No foot pain Skin: No Rash, No Lesions, No Jaundice, No Bruising, No Other Objective Vitals Vital Signs Date Time Temp Pulse Resp B/P (MAP) Pulse Ox O2 Delivery O2 Flow Rate FiO2 11/11/24 09:23 142/74 11/11/24 09:00 98.4 82 20 98 98.4 11/11/24 08:00 Room Air* 0 21 Intake/Output Intake and Output 11/11/24 06:59 Intake Total 1890 ml Output Total 1700 ml Balance 190 ml Intake Oral 1100 ml IV Total 790 ml Output Urine Total 1700 ml Exam HEENT pupils are reactive Neck is supple CV is S1-S2 regular rate and rhythm Respiratory diminished breath sounds bases GI positive bowel sound Extremity right lower extremity swelling 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 General Appearance: Alert, Oriented X3 HEENT: Atraumatic Lungs: Clear to auscultation Cardiovascular: Regular rate, Normal S1, Normal S2 Abdomen: Normal bowel sounds Medications Current Medications Medications Dose Ordered Sig/Ginger Route Start Time Stop Time Status Last Admin Dose Admin Aspirin 81 mg DAILY PO 11/03/24 10:00 11/11/24 09:24 81 MG Atorvastatin Calcium 20 mg HS PO 11/02/24 22:00 11/10/24 22:08 20 MG Multivit/Ca Carb/ B Cmplx/FA/Prenat 1 tab DAILY PO 11/03/24 10:00 11/11/24 09:23 1 TAB Famotidine 20 mg DAILY IV 11/03/24 10:00 11/11/24 09:24 20 MG Amlodipine Besylate 10 mg DAILY PO 11/03/24 10:00 11/11/24 09:23 10 MG Hydralazine HCl 10 mg Q6HP PRN IV 11/02/24 16:45 Diagnostic Test (Pha) 1 strip ACHS 11/02/24 17:00 11/11/24 11:30 1 STRIP Insulin Human Regular ACHS SC 11/02/24 17:00 Dextrose 50 ml UD PRN IV 11/02/24 16:45 Sodium Chloride 1,000 ml @ 60 mls/hr [id number] IV 11/02/24 16:45 11/11/24 05:35 60 MLS/HR Acetaminophen/ Hydrocodone Bitart 1 tab Q4HP PRN PO 11/02/24 16:45 11/11/24 09:24 1 TAB Ondansetron HCl 4 mg Q4HP PRN IV 11/02/24 16:45 11/05/24 11:25 4 MG Docusate Sodium 100 mg BIDPRN PRN PO 11/02/24 16:45 11/10/24 09:33 100 MG Acetaminophen 650 mg Q6HP PRN PO 11/02/24 16:45 Nitroglycerin 0.4 mg Q5MINP PRN SL 11/02/24 17:45 Morphine Sulfate 2 mg Q30M PRN IV 11/02/24 17:45 Levothyroxine Sodium 50 mcg QAM@0600 PO 11/03/24 06:00 11/11/24 05:36 50 MCG Enoxaparin Sodium 90 mg Q12HR SC 11/10/24 10:00 11/11/24 09:24 90 MG Laboratory Results Laboratory Tests 11/11/24 06:17 Chemistry Test 11/11/24 06:17 Calcium Level 9.2 mg/dL (8.7-10.4) Urinalysis Test 11/02/24 15:47 Urine Color Brown (Yellow) H Urine Clarity Ex.turbid (Clear) Urine pH 7.0 (5.0-9.0) Urine Specific [place] 1.005 (1.001-1.035) Urine Protein 1+ (Negative) H Urine Ketones Negative (Negative) Urine Blood 2+ /uL (Negative) H Urine Nitrite Negative (Negative) Urine Bilirubin Negative (Negative) Urine Urobilinogen Normal mg/dL (Negative) Urine Leukocyte Esterase 3+ /uL (Negative) Urine RBC 96 /hpf (0 - 4) Urine WBC Clumps Present /hpf (None Seen) Urine Microscopic WBC 1794 /HPF (0-5) H Urine Squamous Epithelial Cells Few /hpf (<5) Urine Bacteria Many /hpf (None Seen) H Urine Mucus Few (None Seen) Urine Glucose Normal mg/dL (Normal) Microbiology Microbiology Date/Time Source Procedure Growth Status 11/03/24 07:20 Nose MRSA Screen - Final Complete 11/02/24 16:40 Blood Blood Culture - Final NO GROWTH AFTER 5 DAYS OF INCUBATION. Complete 11/02/24 15:47 Urine - Gastelum Port Urine Culture - Final Pseudomonas aeruginosa Complete Assessment/Plan Assessment/Plan 74-year-old female with a known history of CKD stage 4, hypertension, hypothyroidism initially presented to the hospital with a change of Gastelum catheter found to have 1. AKIwith underlying CKD stage 4 2. Pseudomonas UTI, finished course of antibiotics 3. Bilateral lower extremity DVT right more than left 4. Hypothyroidism 5. Physical deconditioning -physical therapy evaluation and treatment, discontinue IV antibiotics -therapeutic Lovenox may switch to p.o. Eliquis in a day or so. Plan discussed with: Patient My Orders Orders - CRISTIANO PHILIPPE MD Procedure Category Date Status Time * Radiologist Consult CONS 11/11/24 Transmitted 12:54 Date of Service: Nov 11, 2024 Billing Provider: CRISTIANO PHILIPPE MD Common Visit Codes: [id number] INP/OBS CARE(MOD) CRISTIANO PHILIPPE MD Nov 11, 2024 15:21
[2024-11-12] VITALS (7 sets, daily range): BP systolic 126–150; BP diastolic 77–98; PULSE 73–104; RESP 17–18; TEMP 97.8–98.5; O2SAT 94–98
[2024-11-12] MEDS: HYDROcodone-ACET 5/325MG TAB PO PRN (05:47)
[2024-11-12] MEDS ORDERED: APIX5TAB PO (17:18)
--- NOTE | 2024-11-12 17:20 | DVHDS2 ---
Discharge Summary Date of Admission Nov 02, 2024 at 17:34 Date of Discharge: Nov 12, 2024 Labs/Diagnostic Data: Laboratory Results Test 11/12/24 05:55 11/11/24 06:17 11/10/24 06:29 11/05/24 05:37 POC Glucose 93 mg/dl (70-106) White Blood Count 5.2 10^3/uL (4.4-10.8) Red Blood Count 2.71 10^6/uL (4.0-5.20) Hemoglobin 8.0 g/dL (12.2-16.2) Hematocrit 23.2 % (36.0-46.0) Mean Corpuscular Volume 85.8 fL (80.0-100.0) Mean Corpuscular Hemoglobin 29.5 pg (28.0-32.0) Mean Corpuscular Hemoglobin Concent 34.4 g/dL (32.0-36.0) Red Cell Distribution Width 20.3 % (11.8-14.3) Platelet Count 149 10^3/uL (140-450) Mean Platelet Volume 5.7 fL (6.9-10.8) Neutrophils (%) (Auto) % (37.0-80.0) Lymphocytes (%) (Auto) % (10.0-50.0) Monocytes (%) (Auto) % (0.0-12.0) Basophils (%) (Auto) % (0.0-2.0) Neutrophils # (Auto) 10 ^3/uL (1.6-8.6) Lymphocytes # (Auto) 10 ^3/uL (0.4-5.4) Monocytes # (Auto) 10 ^3/uL (0-1.3) Differential Total Cells Counted 100.0 (100) Neutrophils % (Manual) 61 (37.0-80.0) Band Neutrophils % (Manual) 0 Lymphocytes % (Manual) 32 (10.0-50.0) Monocytes % (Manual) 4 (0-12) Eosinophils % (Manual) 3 (0-7) Basophils % (Manual) 0 (0.0-2.0) Metamyelocytes % (manual) 0 Myelocytes % (Manual) 0 Promyelocytes % (Manual) 0 Blast Cells % (Manual) 0 Reactive Lymphocytes 0 Platelet Estimate Adequate Microcytosis Slight Sodium Level 143 mmol/L (136-145) Potassium Level 3.8 mmol/L (3.5-5.1) Chloride Level 109 mmol/L (98-107) Carbon Dioxide Level 21 mmol/L (20-31) Anion Gap 13 (5-15) Blood Urea Nitrogen 15 mg/dL (9-23) Creatinine 1.84 mg/dL (0.550-1.02) Glomerular Filtration Rate Calc 29 mL/min (>90) BUN/Creatinine Ratio 8.2 (10.0-20.0) Serum Glucose 87 mg/dL (74-106) Calcium Level 9.2 mg/dL (8.7-10.4) Eosinophils (%) (Auto) 2.0 % (0.0-7.0) Eosinophils # (Auto) 0.1 10 ^3/uL (0-0.8) Basophils # (Auto) 0.1 10 ^3/uL (0-0.2) Nucleated Red Blood Cells 0.1 % Anisocytosis (manual) Slight Target Cells Few Schistocytes Few Test 11/03/24 05:54 11/02/24 16:40 11/02/24 15:47 11/02/24 13:42 Total Bilirubin 0.4 mg/dL (0.2-1.0) Aspartate Amino Transferase (AST) 16 U/L (13-40) Alanine Aminotransferase (ALT) 11 U/L (7-40) Alkaline Phosphatase 77 U/L (46-116) Total Protein 5.7 g/dL (5.7-8.2) Albumin 3.7 g/dL (3.2-4.8) Lactic Acid Level 1.6 mmol/L (0.4-2.0) Urine Color Brown (Yellow) Urine Clarity Ex.turbid (Clear) Urine pH 7.0 (5.0-9.0) Urine Specific [place] 1.005 (1.001-1.035) Urine Protein 1+ (Negative) Urine Ketones Negative (Negative) Urine Blood 2+ /uL (Negative) Urine Nitrite Negative (Negative) Urine Bilirubin Negative (Negative) Urine Urobilinogen Normal mg/dL (Negative) Urine Leukocyte Esterase 3+ /uL (Negative) Urine RBC 96 /hpf (0 - 4) Urine WBC Clumps Present /hpf (None Seen) Urine Microscopic WBC 1794 /HPF (0-5) Urine Squamous Epithelial Cells Few /hpf (<5) Urine Bacteria Many /hpf (None Seen) Urine Mucus Few (None Seen) Urine Glucose Normal mg/dL (Normal) B-Type Natriuretic Peptide 35.04 pg/mL (0-100) Thyroid Stimulating Hormone (TSH) 6.04 uIU/mL (0.55-4.78) Other Laboratory Tests 11/11/24 06:17 Brief Hx & Hospital Course: 74-year-old female with a known history of CKD stage 4, hypertension, hypothyroidism initially presented to the hospital with a change of Gastelum catheter found to have 1. AKIwith underlying CKD stage 4 2. Pseudomonas UTI, finished course of antibiotics 3. Bilateral lower extremity DVT right more than left 4. Hypothyroidism 5. Physical deconditioning Final Diagnosis/Problems List 74-year-old female with a known history of CKD stage 4, hypertension, hypothyroidism initially presented to the hospital with a change of Gastelum catheter found to have 1. AKIwith underlying CKD stage 4 2. Pseudomonas UTI, finished course of antibiotics 3. Bilateral lower extremity DVT right more than left 4. Hypothyroidism 5. Physical deconditioning Discharge Disposition: Home with Health Services Discharge Instruct/Medications Diet: Cardiac 2g Na,low cholest Activity: No Restrictions, As Tolerated Follow Up/Referral: Follow up with the PCP in 1-2 weeks Medications: Eliquis as prescribed. Scheduled Amlodipine Besylate (Amlodipine Besylate), 1 TAB PO DAILY, (Reported) Apixaban Base (Eliquis), 10 MG PO BID Atorvastatin Calcium (Atorvastatin Calcium), 1 TAB PO DAILY, (Reported) B-Complex W/ C & Folic Acid (Rebecca-[facility] Rx), 1 TAB PO DAILY, (Reported) Carbamazepine (Carbamazepine), 1 TAB PO BID, (Reported) Clonazepam (Clonazepam), 1 TAB PO BIDPRN, (Reported) Diclofenac Sodium (Diclofenac Sodium Ec), 1 TAB PO Q12HR, (Reported) Docusate Sodium (Colace), 1 CAP PO BID Febuxostat (Febuxostat), 1 TAB PO DAILY, (Reported) Ferrous Sulfate (Ferosul), 1 TAB PO 3X/WEEK, (Reported) Fluticasone Propionate (Nasal) (Fluticasone Propionate Na), 1 SPRAY EACHNOSTRI BID, (Reported) Gabapentin (Gabapentin), 1 CAP PO TID, (Reported) Levothyroxine Sodium (Levothyroxine Sodium), 75 MCG PO QAM, (Reported) Montelukast Sodium (Montelukast Sodium), 1 TAB PO DAILY, (Reported) Omeprazole ([facility] Omeprazole Odt), 1 TAB PO BID, (Reported) Oxycodone Hcl (OxyCONTIN ER Tablet), 1 TAB PO BID, (Reported) Oxycodone W/ Acetaminophen (Apap/Oxycodone), 1 TAB PO Q8HR, (Reported) Pregabalin (Lyrica), 1 CAP PO Q12HR, (Reported) Venlafaxine Hydrochloride (Venlafaxine Hcl), 200 MG PO DAILY, (Reported) Discontinued Medications Epoetin Julito (Epogen), 1 ML SC Q30D, (Reported) Furosemide (Furosemide), 1 TAB PO QAM PRN, (Reported) Losartan Potassium (Losartan Potassium), 0.5 TAB PO DAILY, (Reported) Discharge Statement: "Patient was advised to return to the ER or call 911 if any headaches, dizziness, shortness of breath, chest pain, abdominal pain, bleeding, fevers, or worsening of medical condition. Patient was counseled about treatment plan, medications, possible side effects, patientverbalized understanding. All questions were answered to the best of my ability. This discharge took greater then 30 minutes in planning, reviewing documentation, counseling the patient, and discussing with other team members." ASSESSMENT ASSESSMENT Assessment 74-year-old female with a known history of CKD stage 4, hypertension, hypothyroidism initially presented to the hospital with a change of Gastelum catheter found to have 1. AKIwith underlying CKD stage 4 2. Pseudomonas UTI, finished course of antibiotics 3. Bilateral lower extremity DVT right more than left 4. Hypothyroidism 5. Physical deconditioning CRISTIANO PHILIPPE MD Nov 12, 2024 17:20
== END 2024-11-12 21:49 | disposition home or self-care (01) | DRG 699 ==
LOC: ER 12:41 → OVERFLOW 17:34 → WEST WING 17:38
PROVIDERS: ADMIT Internal Medicine; ATTEND Internal Medicine
DX: T83.518A Infection and inflammatory reaction due to other urinary catheter, initial encounter (principal); I13.0 Hypertensive heart and chronic kidney disease with heart failure and stage 1 through stage 4 chronic kidney disease, or unspecified chronic kidney disease; N39.0 Urinary tract infection, site not specified; N17.9 Acute kidney failure, unspecified; I82.411 Acute embolism and thrombosis of right femoral vein; N18.4 Chronic kidney disease, stage 4 (severe); I82.432 Acute embolism and thrombosis of left popliteal vein; B96.5 Pseudomonas (aeruginosa) (mallei) (pseudomallei) as the cause of diseases classified elsewhere; E11.22 Type 2 diabetes mellitus with diabetic chronic kidney disease; M10.9 Gout, unspecified; E03.9 Hypothyroidism, unspecified; E78.5 Hyperlipidemia, unspecified; I50.9 Heart failure, unspecified; R32 Unspecified urinary incontinence; Z79.899 Other long term (current) drug therapy; Z90.710 Acquired absence of both cervix and uterus; Z74.01 Bed confinement status; Y84.8 Other medical procedures as the cause of abnormal reaction of the patient, or of later complication, without mention of misadventure at the time of the procedure; Y92.89 Other specified places as the place of occurrence of the external cause
CPT/HCPCS: 36415; 80048; 80053; 81001; 82962; 83605; 83880; 84443; 85007; 85025; 85027; 87040; 87081; 87086; 87088; 87186; 93970; 96365; 97110; 97116; 97163; 97530; G0378; J2405; J2543; J3490